=== PATIENT | female | born 1945 | race Caucasian/White ===

== ENCOUNTER 2017-02-07 21:25 | Inpatient (IN) | payer MEDICARE, OTHER ==
--- NOTE | 2017-02-07 22:32 | ER Document Report ---
ED Medical Screen (RME) - General Chief Complaint: Breathing Difficulty Stated Complaint: DIFFICULITY BREATHING Time seen by provider: 22:29 Mode of Arrival: Wheelchair Information source: Patient Notes: 71-year-old female presents to ED for shortness of breath trouble breathing wheezing with a history of COPD. Grandson states that he has given her albuterol several times in the last couple hours pulses 49 in the emergency room. She is on oxygen 2 L at home but is not on any oxygen in the emergency room. States she is on Pulmicort and Spiriva and albuterol at home. Does have wheezes in RME. I have greeted and performed a rapid initial assessment of this patient. A comprehensive ED assessment and evaluation of the patient, analysis of test results and completion of medical decision making process will be conducted by an additional ED providers. TRAVEL OUTSIDE OF THE [place] IN LAST 30 DAYS: No - Related Data Allergies/Adverse Reactions: adhesive tape [Adhesive Tape] Allergy (Severe, Verified 02/26/16 10:18) peels skin off ceftriaxone sodium [From Rocephin] Allergy (Severe, Verified 02/26/16 10:18) redness/itch Past Medical History - Past Medical History Cardiac Medical History: Reports: Hx Hypertension Denies: Hx Atrial Fibrillation, Hx Congestive Heart Failure, Hx Coronary Artery Disease, Hx Heart Attack, Hx Hypercholesterolemia, Hx Peripheral Vascular Disease, Hx Pulmonary Embolism, Hx Heart Murmur Pulmonary Medical History: Reports: Hx Bronchitis, Hx COPD Denies: Hx Asthma, Hx Pneumonia, Hx Respiratory Failure, Hx Sleep Apnea, Hx Tuberculosis Neurological Medical History: Reports: Hx Seizures. Denies: Hx Cerebrovascular Accident Endocrine Medical History: Denies: Hx Graves' Disease, Hx Hyperthyroidism, Hx Hypothyroidism Renal/ Medical History: Denies: Hx End Stage Renal Disease, Hx Kidney Stones, Hx Peritoneal Dialysis Malignancy Medical History: Denies: Hx Lung Cancer GI Medical History: Reports: Hx Gastroesophageal Reflux Disease, Hx Hepatitis, Hx Ulcer. Denies: Hx Crohn's Disease, Hx Hiatal Hernia, Hx Irritable Bowel, Hx Liver Failure Musculoskeltal Medical History: Reports Hx Arthritis, Denies Hx Fibromyalgia, Denies Hx Multiple Sclerosis, Denies Hx Muscular Dystrophy Psychiatric Medical History: Reports: Hx Anxiety, Hx Depression Denies: Hx Dementia, Hx Post Traumatic Stress Disorder, Hx Schizophrenia Comment Only: Hx Bipolar Disorder - anxiety Traumatic Medical History: Denies: Hx Fractures Infectious Medical History: Reports: Hx Hepatitis Past Surgical History: Reports: Hx Cholecystectomy. Denies: Hx Appendectomy, Hx Bowel Surgery, Hx Section, Hx Colostomy, Hx Coronary Artery Bypass Graft, Hx Gastric Bypass Surgery, Hx Herniorrhaphy, Hx Hysterectomy, Hx Mastectomy, Hx Open Heart Surgery, Hx Pacemaker, Hx Tonsillectomy, Hx Tubal Ligation - Immunizations Immunizations up to date: Yes Hx Diphtheria, Pertussis, Tetanus Vaccination: No
[2017-02-07] MEDS ORDERED: PREDNISONE 20 MG TABLET PO ONE (22:33)
[2017-02-07] MEDS: ALBUTEROL SULFATE 0.083% NEB 2.5 MG/3 ML AMPUL NEB SCH ×2 (22:41→22:46)
[2017-02-08] MEDS ORDERED: LEVOFLOXACIN 750 MG/D5W RTU 150 ML IV ONE (03:06)
[2017-02-08] MEDS ORDERED: IPRATROPIUM/ALBUTEROL 0.5-2.5 MG/3 ML AMPUL NEB ONE ×2 (03:07→04:37)
--- NOTE | 2017-02-08 03:08 | ER Document Report ---
ED Respiratory Problem - General Mode of Arrival: Wheelchair Information source: Patient TRAVEL OUTSIDE OF THE [place] IN LAST 30 DAYS: No - HPI Patient complains to provider of: COPD, Short of breath Onset: This evening Context: Hx COPD, Smoker <BERLIN PARKER - Last Filed: 02/08/17 04:48> <RITURA GARTH - Last Filed: 02/08/17 06:18> - General Chief Complaint: Breathing Difficulty Stated Complaint: DIFFICULITY BREATHING Notes: 71 year old patient with history of COPD and bronchitis presents to the ED complaining of shortness of breath that started earlier this evening. Patient states that she only comes to the ED if she feels like she needs to be admitted. Patient states that she received a flu shot and 1 of 2 pneumonia shots this year. Patient's son also complains of a productive cough. Patient's primary care provider is Dr. Fowler. (BERLIN PARKER) - Related Data Allergies/Adverse Reactions: adhesive tape [Adhesive Tape] Allergy (Severe, Verified 02/26/16 10:18) peels skin off ceftriaxone sodium [From Rocephin] Allergy (Severe, Verified 02/26/16 10:18) redness/itch Past Medical History - General Information source: Patient - Social History Smoking Status: Unknown if Ever Smoked Family History: Reviewed & Not Pertinent - Past Medical History Cardiac Medical History: Reports: Hx Hypertension Pulmonary Medical History: Reports: Hx Bronchitis, Hx COPD Neurological Medical History: Reports: Hx Seizures GI Medical History: Reports: Hx Gastroesophageal Reflux Disease, Hx Hepatitis, Hx Ulcer Musculoskeltal Medical History: Reports Hx Arthritis Psychiatric Medical History: Reports: Hx Anxiety, Hx Depression Comment Only: Hx Bipolar Disorder - anxiety Infectious Medical History: Reports: Hx Hepatitis Past Surgical History: Reports: Hx Cholecystectomy - Immunizations Immunizations up to date: Yes Hx Diphtheria, Pertussis, Tetanus Vaccination: No Hx Pneumococcal Vaccination: 07/14/11 <BERLIN PARKER - Last Filed: 02/08/17 04:48> Review of Systems - Review of Systems Constitutional: No symptoms reported EENT: No symptoms reported Cardiovascular: No symptoms reported Respiratory: See HPI, Cough, Short of breath, Sputum Gastrointestinal: No symptoms reported Genitourinary: No symptoms reported Female Genitourinary: No symptoms reported Musculoskeletal: No symptoms reported Skin: No symptoms reported Hematologic/Lymphatic: No symptoms reported Neurological/Psychological: No symptoms reported -: Yes All other systems reviewed and negative <BERLIN PARKER - Last Filed: 02/08/17 04:48> Physical Exam - Vital signs Interpretation: Hypotensive, Hypoxic - General General appearance: Alert In distress: Mild - HEENT Head: Normocephalic, Atraumatic Eyes: Normal Pupils: PERRL - Respiratory Respiratory status: Respiratory distress Chest status: Nontender Breath sounds: Decreased air movement, Wheezing Chest palpation: Normal - Cardiovascular Rhythm: Regular Heart sounds: Normal auscultation Murmur: No - Abdominal Inspection: Normal Distension: No distension Bowel sounds: Normal Tenderness: Nontender Organomegaly: No organomegaly - Back Back: Normal, Nontender - Extremities General upper extremity: Normal inspection, Nontender, Normal color, Normal ROM , Normal temperature General lower extremity: Normal inspection, Nontender, Normal color, Normal ROM , Normal temperature, Normal weight bearing. No: Shayan's sign - Neurological Neuro grossly intact: Yes Cognition: Normal Orientation: AAOx4 [place] Coma Scale Eye Opening: Spontaneous [place] Coma Scale Verbal: Oriented [place] Coma Scale Motor: Obeys Commands [place] Coma Scale Total: 15 Speech: Normal Motor strength normal: LUE, RUE, LLE, RLE Sensory: Normal - Psychological Associated symptoms: Normal affect, Normal mood - Skin Skin Temperature: Warm Skin Moisture: Dry Skin Color: Normal <RA CHANEY - Last Filed: 02/08/17 06:18> - Vital signs Vitals: Temp Pulse Resp BP Pulse Ox 97.7 F 56 L 25 H 103/44 L 95 02/07/17 21:34 02/07/17 21:34 02/07/17 21:34 02/07/17 21:34 02/07/17 21:34 Course - Laboratory Result Diagrams: 02/08/17 03:50 02/08/17 02:20 - Consults Dr. Fowler Time consulted: 16:37 <BERLIN PARKER - Last Filed: 02/08/17 04:48> - Laboratory Result Diagrams: 02/08/17 03:50 02/08/17 02:20 <RA CHANEY - Last Filed: 02/08/17 06:18> - Re-evaluation Re-evalutation: 02/08/17 06:17 Patient is a 78-year-old female with a history of COPD who comes in with difficulty breathing. She's gotten worse over the last few days. No fever. No evidence for pneumonia on chest x-ray. Patient is hypoxic despite her home oxygen. She is having coarse wheezing despite treatments. Patient was given magnesium, steroids, multiple nebulizer treatments. She'll be admitted to the [facility]. Agrees with this plan. Stable time of admission. (RA CHANEY ) - Vital Signs Vital signs: Temp Pulse Resp BP Pulse Ox 97.7 F 56 L 25 H 108/81 94 02/07/17 21:34 02/07/17 21:34 02/07/17 21:34 02/08/17 03:01 02/08/17 03:01 - Laboratory Laboratory results interpreted by me: 02/08/17 02/08/17 02/08/17 02:20 03:15 03:50 Hgb 11.9 L RDW 16.0 H VBG pH 7.26 L Sodium 128.0 L Chloride 93 L Carbon Dioxide 18 L Creatinine 2.03 H Est GFR ( Amer) 29 L Est GFR (Non-Af Amer) 24 L - Consults Dr. Fowler Reason for consultation: 02/08/17 04:37 Patient was discussed with Dr. Fowler and states to admit the patient to [facility]. (BERLIN PARKER) Critical Care Note - Critical Care Note Total time excluding time spent on procedures (mins): 35 - evaluation and management of respiratory distress, multiple re-evaluations, coordination of admission, counseling of patient and family <RA CHANEY - Last Filed: 02/08/17 06:18> Discharge <BERLIN PARKER - Last Filed: 02/08/17 04:48> - Discharge Admitting Provider: Janeth Unit Admitted: [facility] <RA CHANEY - Last Filed: 02/08/17 06:18> - Discharge Clinical Impression: Decompensated COPD with exacerbation (chronic obstructive pulmonary disease) Condition: Stable Disposition: ADMITTED INPATIENT Scribe Attestation: 02/08/17 06:18 I personally performed the services described in the documentation, reviewed and edited the documentation which was dictated to the scribe in my presence, and it accurately records my words and actions. (RA CHANEY) Scribe Documentation - Scribe Written by Oluibe:: Kanu Renteria, 02/08/2017 0325 acting as scribe for :: Ritu <BERLIN PARKER - Last Filed: 02/08/17 04:48>
[2017-02-08 03:30] LABS: VENOUS BLOOD HCO3 21.3 mmol/L (20-32); VENOUS BLOOD PCO2 49.1 mmHg (35-63); VENOUS BLOOD PH 7.26 (7.30-7.42)
[2017-02-08 03:43] LABS: ALANINE AMINOTRANSFERASE 20 U/L (9-52); ALKALINE PHOSPHATASE 107 U/L (38-126); ANION GAP 17 (5-19); ASPARTATE AMINO TRANSFERASE 25 U/L (14-36); BILIRUBIN,DIRECT 0.4 mg/dL (0.0-0.4); BILIRUBIN,TOTAL 0.7 mg/dL (0.2-1.3); BLOOD UREA NITROGEN 11 mg/dL (7-20); CALCIUM 8.5 mg/dL (8.4-10.2); CARBON DIOXIDE 18 mmol/L (22-30); CHLORIDE 93 mmol/L (98-107); CREATININE RESULT 2.03 mg/dL (0.52-1.25); GLUCOSE 109 mg/dL (75-110); TOTAL PROTEIN 6.8 g/dL (6.3-8.2)
[2017-02-08] MEDS: MAGNESIUM SULFATE/D5W 100 ML IV SCH ×2 (03:48→05:17)
[2017-02-08] MEDS ORDERED: NORMAL SALINE 1000 ML 500 ML IV ONE (03:52)
[2017-02-08 04:01] LABS: ABSOLUTE BASOPHILS # (AUTO) 0.1 10^3/uL (0.0-0.2); ABSOLUTE EOSINOPHILS # (AUTO) 0.1 10^3/uL (0.0-0.6); ABSOLUTE LYMPHOCYTES (AUTO) 2.1 10^3/uL (0.5-4.7); ABSOLUTE NEUT (AUTO) 5.3 10^3/uL (1.7-8.2); BASOPHILS % (AUTO) 0.7 % (0-2); EOSINOPHILS % (AUTO) 0.8 % (0-6); HEMATOCRIT 36.1 % (36.0-47.0); HEMOGLOBIN 11.9 g/dL (12.0-15.5); HGB HCT DIFFERENCE -0.4; LYMPHOCYTES % (AUTO) 24.8 % (13-45); MEAN CORPUSCULAR HEMOGLOBIN 28.8 pg (27.0-33.4); MEAN CORPUSCULAR HGB CONC 32.9 g/dL (32.0-36.0); MEAN CORPUSCULAR VOLUME 87 fl (80-97); MONOCYTES % (AUTO) 11.7 % (3-13); RED BLOOD COUNT 4.13 10^6/uL (3.72-5.28); WHITE BLOOD COUNT 8.5 10^3/uL (4.0-10.5)
[2017-02-08 04:21] LABS: PROTHROMBIN TIME 14.9 SEC (11.4-15.4)
[2017-02-08 06:01] LABS: APPEARANCE,URINE SLIGHTLY-CLOUDY; BILIRUBIN,URINE NEGATIVE (NEGATIVE); GLUCOSE, URINE NEGATIVE (NEGATIVE); KETONES,URINE NEGATIVE (NEGATIVE); LEUKOCYTE ESTERASE,URINE SMALL (NEGATIVE); NITRITE,URINE NEGATIVE (NEGATIVE); PROTEIN,URINE NEGATIVE (NEGATIVE); URINE SPECIFIC GRAVITY 1.006; UROBILINOGEN,URINE NEGATIVE mg/dL (<2.0)
--- NOTE | 2017-02-08 08:27 | EKG REPORT ---
SEVERITY:- ABNORMAL ECG - ATRIAL FIBRILLATION BORDERLINE R WAVE PROGRESSION, ANTERIOR LEADS BORDERLINE T ABNORMALITIES, ANTERIOR LEADS : Confirmed by: Astrid Celestin 08-Feb-2017 08:26:44
[2017-02-08] MEDS ORDERED: IPRATROPIUM/ALBUTEROL 0.5-2.5 MG/3 ML AMPUL NEB PRN (08:39)
[2017-02-08] MEDS ORDERED: TRIMETHOBENZAMIDE HCL 300 MG CAPSULE PO PRN (08:42)
[2017-02-08] MEDS ORDERED: ACETAMINOPHEN 325 MG TABLET PO PRN (08:42)
[2017-02-08 09:45] LABS: HEMATOCRIT 35.6 % (36.0-47.0); HEMOGLOBIN 11.7 g/dL (12.0-15.5); HGB HCT DIFFERENCE -0.5; MEAN CORPUSCULAR HEMOGLOBIN 28.7 pg (27.0-33.4); MEAN CORPUSCULAR VOLUME 87 fl (80-97); RED BLOOD COUNT 4.09 10^6/uL (3.72-5.28); RED CELL DISTRIBUTION WIDTH 16.1 % (11.5-14.0); WHITE BLOOD COUNT 8.8 10^3/uL (4.0-10.5)
[2017-02-08 09:51] LABS: PROTHROMBIN TIME 14.9 SEC (11.4-15.4)
[2017-02-08 09:52] LABS: PARTIAL THROMBOPLASTIN TIME 32.1 SEC (23.5-35.8)
[2017-02-08 10:06] LABS: CREATININE RESULT 1.14 mg/dL (0.52-1.25)
[2017-02-08] MEDS ORDERED: LANSOPRAZOLE 30 MG TAB.RAP.DR PO ONE (11:00)
[2017-02-08] MEDS ORDERED: METHYLPREDNISOLONE INJ 125 MG/2 ML SDV IV ONE (11:30)
[2017-02-08] MEDS ORDERED: ENOXAPARIN SODIUM INJ 40 MG/0.4 ML DISP.SYRIN SUBCUT ONE (11:30)
[2017-02-08] MEDS: METHYLPREDNISOLONE INJ 125 MG/2 ML SDV IV SCH (17:05)
[2017-02-08] MEDS ORDERED: (PENDING PHARMACY ID) (Diltiazem Hcl [Diltiazem Er] 180 MG) PO SCH (19:00)
--- NOTE | 2017-02-08 19:23 | PDOC H&P ---
History of Present Illness Admission Date/PCP: 02/08/17 04:46 STELLA DELICIA Patient complains of: Difficulty with breathing History of Present Illness: SOHA DORSEY is a 71 year old female known to my practice who presented to ED with above complaint. Patient reported episodes of nasal and sinus congestion for couple of weeks with associated postnasal drip and productive coughing. Patient continue to smoke cigarette, about 11/2 PPD. She reported sputum character as brownish yellow with tinged of blood earlier today. She denied any significant associated chest pain. There is chills and feeling cold at home but denied any definite fever. No abdominal pain, nausea or vomiting. Appetite and p.o intake remain fair. Patient reported intermittent episodes of difficulty with voiding associate feeling of full and over distended bladder but mainly tripping or no voided urine with attempts to urinate. Patient reported episodes over last 3-4 months. Her initial evaluation in the ED suggested exacerbation of her COPD and possible UTI Past Medical History Cardiac Medical History: Reports: Hypertension Denies: Atrial Fibrillation, Congestive Heart Failure, Coronary Artery Disease, Myocardial Infarction, Hyperlipidema, Peripheral Vascular Disease, Pulmonary Embolism, Heart Murmur Pulmonary Medical History: Reports: Bronchitis, Chronic Obstructive Pulmonary Disease (COPD) Denies: Asthma, Pneumonia, Respiratory Failure, Sleep Apnea, Tuberculosis Neurological Medical History: Reports: Seizures Endocrine Medical History: Denies: Hyperthyroidism, Hypothyroidism Renal/ Medical History: Denies: End Stage Renal Disease Malignancy Medical History: Denies: Lung Cancer GI Medical History: Reports: Gastroesophageal Reflux Disease, Hepatitis Denies: Crohn's Disease, Hiatal Hernia Musculoskeltal Medical History: Reports: Arthritis Denies: Fibromyalgia Psychiatric Medical History: Reports: Depression Denies: Dementia, Post Traumatic Stress Disorder Comment Only: Bipolar Disorder - anxiety Hematology: Denies: Anemia, Sickle Cell Disease Past Surgical History Past Surgical History: Reports: Cholecystectomy Denies: Amputation, Appendectomy, Section, Colostomy, Coronary Artery Bypass Graft, Gastric Bypass Surgery, Herniorrhaphy, Hysterectomy, Mastectomy, Pacemaker, Tonsillectomy, Tubal Ligation Social History Smoking Status: Unknown if Ever Smoked Frequency of Alcohol Use: Heavy Hx Recreational Drug Use: No Hx Prescription Drug Abuse: No Family History Family History: Reviewed & Not Pertinent Parental Family History Reviewed: Yes Children Family History Reviewed: Yes Sibling(s) Family History Reviewed.: Yes Medication/Allergy Home Medications: Acetazolamide [Diamox 250 mg Tab] 250 mg PO DAILY 02/08/17 Albuterol Sulfate [Albuterol Sulfate 2.5mg/3 mL] 1 vial NEB TIDP PRN 02/08/17 Albuterol Sulfate [Proair HFA Inhalation Aerosol 8.5 gm MDI] 2 puff IH Q6HP PRN 02/08/17 Apixaban [Eliquis 5 mg Tablet] 5 mg PO BID 02/08/17 Budesonide [Pulmicort 180 mcg Flexhaler] 1 puff IH BID 02/08/17 Calcium Carbonate/Vitamin D3 [Calcium 600 + Vit D 400 Tablet] 1 tab PO BID 02/08 Clonazepam [Klonopin 0.25 mg Tablet Rapid Dissolve] 0.25 mg SL QHS 02/08/17 Diltiazem HCl [Diltiazem ER] 180 mg PO DAILY 02/08/17 Escitalopram Oxalate [Lexapro 10 mg Tablet] 10 mg PO DAILY 02/08/17 Furosemide [Lasix] 20 mg PO DAILY 02/08/17 Gabapentin [Neurontin] 800 mg PO TID 02/08/17 Melatonin 10 mg PO QHS 02/08/17 Multivits-Min/Iron/FA/Lutein [Centrum Silver Women Tablet] 1 tab PO DAILY Omeprazole 40 mg PO DAILY 02/08/17 Potassium Chloride [Klor-Con 10 Meq Tablet.sa] 20 meq PO DAILY 02/08/17 Sodium Chloride [[place]win Nasal [place] 44 ml Bottle] 1 spray NASL QHS 02/08/17 Tiotropium [place] [Spiriva Respimat] 2 puff IH DAILY 02/08/17 Tramadol HCl [Ultram 50 mg Tablet] 50 mg PO BIDP PRN 02/08/17 Valsartan [Diovan 80 mg Tablet] 80 mg PO DAILY 02/08/17 Allergies/Adverse Reactions: adhesive tape [Adhesive Tape] Allergy (Severe, Verified 02/26/16 10:18) peels skin off ceftriaxone sodium [From Rocephin] Allergy (Severe, Verified 02/26/16 10:18) redness/itch Review of Systems Constitutional: PRESENT: chills Eyes: ABSENT: visual disturbances Ears: ABSENT: hearing changes Nose, Mouth, and Throat: ABSENT: as per HPI, headache(s), mouth pain, sore throat, vertigo, other Cardiovascular: PRESENT: dyspnea on exertion. ABSENT: as per HPI, chest pain, edema, orthropnea, palpitations, other Respiratory: PRESENT: cough, dyspnea, sputum. ABSENT: as per HPI, hemoptysis, other Gastrointestinal: ABSENT: as per HPI, abdominal pain, bloating, coffee ground emesis, constipation, diarrhea, dysphagia, heartburn, hematemesis, hematochezia , melena, nausea, vomiting, other Genitourinary: PRESENT: difficulty urinating. ABSENT: as per HPI, dysuria, hematuria, nocturia, other Musculoskeletal: ABSENT: joint swelling Integumentary: ABSENT: rash, wounds Neurological: ABSENT: abnormal gait, abnormal speech, confusion, dizziness, focal weakness, syncope Psychiatric: PRESENT: anxiety, depression. ABSENT: as per HPI, hallucinations, homidical ideation, suicidal ideation, other Endocrine: ABSENT: cold intolerance, heat intolerance, menstrual abnormalities, polydipsia, polyuria Hematologic/Lymphatic: ABSENT: easy bleeding, easy bruising, lymphadenopathy Physical Exam Vital Signs: Temp Pulse Resp BP Pulse Ox 97.7 F 56 L 25 H 109/51 L 97 02/07/17 21:34 02/07/17 21:34 02/07/17 21:34 02/08/17 06:01 02/08/17 06:01 General appearance: PRESENT: mild distress - Remain on supplemental oxygen via nasal canula, obese Head exam: PRESENT: atraumatic, normocephalic Eye exam: PRESENT: conjunctiva pink, EOMI, PERRLA. ABSENT: scleral icterus Ear exam: PRESENT: normal external ear exam Mouth exam: PRESENT: moist, tongue midline Throat exam: ABSENT: post pharyngeal erythema, tonsillar erythema, tonsillar exudate, tonsillogmegaly, other Neck exam: PRESENT: full ROM. ABSENT: carotid bruit, JVD, lymphadenopathy, thyromegaly Respiratory exam: PRESENT: accessory muscle use - to some degree with lip pussing, decreased breath sounds, prolonged expiratory phas, rhonchi Cardiovascular exam: PRESENT: irregular rhythm. ABSENT: bradycardia, clicks, diastolic murmur, gallop, RRR, rubs, +S1, +S2, systolic murmur, tachycardia, other Pulses: PRESENT: normal dorsalis pedis pul, +2 pedal pulses bilateral Vascular exam: PRESENT: normal capillary refill GI/Abdominal exam: PRESENT: normal bowel sounds, soft. ABSENT: distended, guarding, mass, organolmegaly, rebound, tenderness Rectal exam: PRESENT: deferred Extremities exam: PRESENT: full ROM Musculoskeletal exam: PRESENT: deformity - related to joint involvement with arthritis Neurological exam: PRESENT: alert, awake, oriented to person, oriented to place , oriented to time, oriented to situation, CN II-XII grossly intact. ABSENT: motor sensory deficit Psychiatric exam: PRESENT: appropriate affect, normal mood. ABSENT: homicidal ideation, suicidal ideation Skin exam: PRESENT: dry, intact, warm. ABSENT: cyanosis, rash Results Laboratory Results: 02/08/17 04:55 Urine Color YELLOW Urine Appearance SLIGHTLY-CLOUDY Urine pH 5.0 Ur Specific [place] 1.006 Urine Protein NEGATIVE Urine Glucose (UA) NEGATIVE Urine Ketones NEGATIVE Urine Blood NEGATIVE Urine Nitrite NEGATIVE Ur Leukocyte Esterase SMALL H Urine WBC (Auto) 3 Urine RBC (Auto) 2 Impressions: Chest X-Ray 02/07/17 22:32 IMPRESSION: NO SIGNIFICANT RADIOGRAPHIC FINDING IN THE CHEST. Assessment & Plan - Diagnosis (1) Probable sepsis Is this a current diagnosis for this admission?: YesPlan: See admitting physician orders (2) Decompensated COPD with exacerbation (chronic obstructive pulmonary disease) Is this a current diagnosis for this admission?: YesPlan: See admitting physician orders (3) Anxiety Is this a current diagnosis for this admission?: YesPlan: See admitting physician orders (4) Depression Qualifiers: Depression Type: major depressive disorder Major depression recurrence : recurrent Active/Remission status: currently active Psychotic features : without psychotic features Is this a current diagnosis for this admission?: YesPlan: See admitting physician orders (5) HLD (hyperlipidemia) Qualifiers: Hyperlipidemia type: pure hypercholesterolemia Qualified Code(s): E78.00 - Pure hypercholesterolemia, unspecified; E78.0 - Pure hypercholesterolemia Is this a current diagnosis for this admission?: YesPlan: See admitting physician orders (6) HTN (hypertension) Qualifiers: Hypertension type: essential hypertension Qualified Code(s): I10 - Essential (primary) hypertension Is this a current diagnosis for this admission?: YesPlan: See admitting physician orders - Time Time Spent: 50 to 70 Minutes Medications reviewed and adjusted accordingly: Yes Anticipated discharge: Home with Homehealth Within: Other - Inpatient Certification Medical Necessity: Need Close Monitoring Due to Risk of Patient Decompensation, Need For IV Fluids, Need For Continuous Telemetry Monitoring, Need for Nebulizer Therapy and Monitoring of Response, Need for IV Antibiotics, Risk of Complication if Not Cared For in Hospital Post Hospital Care: D/C Energy Conservation Technician Documentation - Plan Summary Plan Summary: See admitting physician orders
[2017-02-08] MEDS ORDERED: NICOTINE 21 MG/24 HR PATCH.TD24 TD ONE (20:00)
[2017-02-08] MEDS ORDERED: VALSARTAN 80 MG TABLET PO ONE (20:00)
[2017-02-08] MEDS ORDERED: DILTIAZEM HCL 180 MG CAPSULE.CR PO ONE (20:00)
[2017-02-08] MEDS ORDERED: (PENDING PHARMACY ID) (Melatonin [Melatonin] 10 MG) PO SCH (22:00)
[2017-02-08] MEDS ORDERED: CLONAZEPAM 0.25 MG SL SCH (22:00)
[2017-02-08] MEDS: GABAPENTIN 400 MG CAPSULE PO SCH (22:12)
[2017-02-08] MEDS: CLONAZEPAM 1 MG TABLET SL SCH (22:13)
[2017-02-08] MEDS: APIXABAN 5 MG TABLET PO SCH (22:14)
[2017-02-09] MEDS: METHYLPREDNISOLONE INJ 125 MG/2 ML SDV IV SCH (02:47)
[2017-02-09] MEDS ORDERED: LEVOFLOXACIN 500 MG/D5W RTU 500 MG/100 ML RTUPB IV SCH (03:00)
[2017-02-09] MEDS: LANSOPRAZOLE 30 MG TAB.RAP.DR PO SCH (05:41)
[2017-02-09] MEDS: GABAPENTIN 400 MG CAPSULE PO SCH ×3 (05:41→21:49)
[2017-02-09] MEDS ORDERED: ENOXAPARIN SODIUM INJ 40 MG/0.4 ML DISP.SYRIN SUBCUT SCH (08:00)
--- NOTE | 2017-02-09 08:18 | PDOC PROGRESS REPORT ---
Subjective Progress Note for:: 02/09/17 Subjective:: Patient is sitting on bed quietly without supplemental oxygen and saturation at 95%. Denied any chest pain. No reported fever or chills. No nausea or vomiting. No abdominal pain. Remain on IV Solu-Medrol, Levofloxacin and Nebulizer therapy. Physical Exam Vital Signs: Temp Pulse Resp BP Pulse Ox 97.4 F 76 22 H 139/65 H 95 02/09/17 07:18 02/09/17 07:45 02/09/17 07:18 02/09/17 07:18 02/09/17 07:18 Intake & Output 02/08/17 02/09/17 02/10/17 06:59 06:59 06:59 Intake Total 563 Output Total 600 Balance -37 Weight 70.3 kg General appearance: PRESENT: no acute distress, cooperative, obese Head exam: PRESENT: atraumatic, normocephalic Eye exam: PRESENT: conjunctiva pink, EOMI, PERRLA. ABSENT: scleral icterus Ear exam: PRESENT: normal external ear exam Mouth exam: PRESENT: moist, tongue midline Respiratory exam: PRESENT: decreased breath sounds - at lung bases, rhonchi - very minimal and end expiratory phase Cardiovascular exam: PRESENT: RRR. ABSENT: diastolic murmur, rubs, systolic murmur GI/Abdominal exam: PRESENT: normal bowel sounds, soft. ABSENT: distended, guarding, mass, organolmegaly, rebound, tenderness Extremities exam: PRESENT: full ROM Musculoskeletal exam: PRESENT: deformity Neurological exam: PRESENT: alert, awake, oriented to person, oriented to place , oriented to time, oriented to situation, CN II-XII grossly intact. ABSENT: motor sensory deficit Psychiatric exam: PRESENT: appropriate affect, normal mood. ABSENT: homicidal ideation, suicidal ideation Skin exam: PRESENT: dry, intact, warm. ABSENT: cyanosis, rash Results Laboratory Results: 02/08/17 09:35 02/08/17 09:35 02/08/17 02/08/17 09:35 09:35 WBC 8.8 RBC 4.09 Hgb 11.7 L Hct 35.6 L MCV 87 MCH 28.7 MCHC 33.0 RDW 16.1 H Plt Count 168 Creatinine 1.14 Est GFR ( Amer) 57 L Est GFR (Non-Af Amer) 47 L Impressions: Chest X-Ray 02/07/17 22:32 IMPRESSION: NO SIGNIFICANT RADIOGRAPHIC FINDING IN THE CHEST. Assessment & Plan - Diagnosis (1) Probable sepsis Is this a current diagnosis for this admission?: YesPlan: I will discontinue IV Levofloxacin and start on oral route with intent to discharge on same soon. (2) Decompensated COPD with exacerbation (chronic obstructive pulmonary disease) Is this a current diagnosis for this admission?: YesPlan: Improving. I will transition patient to oral Prednisone with tapering dosage over next couple of days. She will start on her preadmission inhaler therapy. (3) Anxiety Is this a current diagnosis for this admission?: YesPlan: See attending physician orders. (4) Depression Qualifiers: Depression Type: major depressive disorder Major depression recurrence : recurrent Active/Remission status: currently active Psychotic features : without psychotic features Is this a current diagnosis for this admission?: YesPlan: See attending physician orders. (5) HLD (hyperlipidemia) Qualifiers: Hyperlipidemia type: pure hypercholesterolemia Qualified Code(s): E78.00 - Pure hypercholesterolemia, unspecified; E78.0 - Pure hypercholesterolemia Is this a current diagnosis for this admission?: YesPlan: See attending physician orders. (6) HTN (hypertension) Qualifiers: Hypertension type: essential hypertension Qualified Code(s): I10 - Essential (primary) hypertension Is this a current diagnosis for this admission?: YesPlan: See attending physician orders. - Time Time Spent with patient: 25-34 minutes Medications reviewed and adjusted accordingly: Yes Anticipated discharge: Home Within: Other - Inpatient Certification Medical Necessity: Need Close Monitoring Due to Risk of Patient Decompensation, Need For Continuous Telemetry Monitoring, Need for IV Antibiotics, Risk of Complication if Not Cared For in Hospital Post Hospital Care: D/C Sign Erector Documentation - Plan Summary Plan Summary: See attending physician orders.
[2017-02-09] MEDS: APIXABAN 5 MG TABLET PO SCH ×2 (09:41→21:49)
[2017-02-09] MEDS: PREDNISONE 20 MG TABLET PO SCH (09:45)
[2017-02-09] MEDS: VALSARTAN 80 MG TABLET PO SCH (09:45)
[2017-02-09] MEDS: ESCITALOPRAM OXALATE 10 MG TABLET PO SCH (09:46)
[2017-02-09] MEDS: POTASSIUM CHLORIDE 10 MEQ TABLET.SA PO SCH (09:47)
[2017-02-09] MEDS: LEVOFLOXACIN 500 MG TABLET PO SCH (09:47)
[2017-02-09] MEDS: FUROSEMIDE 20 MG TABLET PO SCH (09:48)
[2017-02-09] MEDS: MULTIVITAMIN TABLET PO SCH (09:48)
[2017-02-09] MEDS: ACETAZOLAMIDE 250 MG TABLET PO SCH (09:48)
[2017-02-09] MEDS: DILTIAZEM HCL 180 MG CAPSULE.CR PO SCH (09:49)
[2017-02-09] MEDS: CALCIUM CARBONATE 250 MG/VITAMIN D3 125 UNIT TABLET PO SCH ×2 (09:49→17:24)
[2017-02-09] MEDS: NICOTINE 21 MG/24 HR PATCH.TD24 TD SCH (09:50)
[2017-02-09] MEDS: TIOTROPIUM BROMIDE DPI 5 CAP/KIT (18 MCG/CAP) IH SCH (09:51)
[2017-02-09] MEDS ORDERED: (PENDING PHARMACY ID) (Multivits-Min/Iron/Fa/Lutein [Centrum Silver Women Tablet] 1 TAB) PO SCH (10:00)
[2017-02-09] MEDS ORDERED: (PENDING PHARMACY ID) (Tiotropium Bromide [Spiriva Respimat] 2 PUFF) IH SCH (10:00)
[2017-02-09] MEDS ORDERED: (PENDING PHARMACY ID) (Calcium Carbonate/Vitamin D3 [Calcium 600 + Vit D 400 Tablet] 1 TAB PO SCH (10:00)
[2017-02-09] MEDS ORDERED: (PENDING PHARMACY ID) (Budesonide [Pulmicort 180 Mcg Flexhaler] 1 PUFF) IH SCH (10:00)
[2017-02-09] MEDS: CLONAZEPAM 1 MG TABLET SL SCH (21:49)
[2017-02-10] MEDS ORDERED: LEVOFLOXACIN 750 MG/D5W RTU 750 MG/150 ML RTUPB IV SCH (03:00)
[2017-02-10] MEDS: LANSOPRAZOLE 30 MG TAB.RAP.DR PO SCH (05:31)
[2017-02-10] MEDS: GABAPENTIN 400 MG CAPSULE PO SCH ×2 (05:31→13:22)
[2017-02-10] MEDS: APIXABAN 5 MG TABLET PO SCH (09:46)
[2017-02-10] MEDS: PREDNISONE 20 MG TABLET PO SCH (09:50)
[2017-02-10] MEDS: VALSARTAN 80 MG TABLET PO SCH (09:50)
[2017-02-10] MEDS: ESCITALOPRAM OXALATE 10 MG TABLET PO SCH (09:51)
[2017-02-10] MEDS: FUROSEMIDE 20 MG TABLET PO SCH (09:51)
[2017-02-10] MEDS: MULTIVITAMIN TABLET PO SCH (09:51)
[2017-02-10] MEDS: DILTIAZEM HCL 180 MG CAPSULE.CR PO SCH (09:51)
[2017-02-10] MEDS: CALCIUM CARBONATE 250 MG/VITAMIN D3 125 UNIT TABLET PO SCH (09:52)
[2017-02-10] MEDS: LEVOFLOXACIN 500 MG TABLET PO SCH (09:52)
[2017-02-10] MEDS: ACETAZOLAMIDE 250 MG TABLET PO SCH (09:52)
[2017-02-10] MEDS: NICOTINE 21 MG/24 HR PATCH.TD24 TD SCH (09:53)
[2017-02-10] MEDS: POTASSIUM CHLORIDE 10 MEQ TABLET.SA PO SCH (09:53)
[2017-02-10] MEDS: TIOTROPIUM BROMIDE DPI 5 CAP/KIT (18 MCG/CAP) IH SCH (09:54)
--- NOTE | 2017-02-10 16:02 | PDOC DISCHARGE SUMMARY ---
General - Admit/Disc Date/PCP Admission Date/Primary Care Provider: 02/08/17 04:46 STELLA DELICIA Discharge Date: 02/10/17 - Discharge Diagnosis (1) Probable sepsis Is this a current diagnosis for this admission?: Yes (2) Decompensated COPD with exacerbation (chronic obstructive pulmonary disease) Is this a current diagnosis for this admission?: Yes (3) Anxiety Is this a current diagnosis for this admission?: Yes (4) Depression Is this a current diagnosis for this admission?: Yes (5) HLD (hyperlipidemia) Is this a current diagnosis for this admission?: Yes (6) HTN (hypertension) Is this a current diagnosis for this admission?: Yes - Additional Information Discharge Diet: Cardiac Discharge Activity: Activity As Tolerated, Slowly Increase Activity Home Medications: Acetazolamide [Diamox 250 mg Tab] 250 mg PO DAILY 02/08/17 Albuterol Sulfate [Albuterol Sulfate 2.5mg/3 mL] 1 vial NEB TIDP PRN 02/08/17 Albuterol Sulfate [Proair HFA Inhalation Aerosol 8.5 gm MDI] 2 puff IH Q6HP PRN 02/08/17 Apixaban [Eliquis 5 mg Tablet] 5 mg PO BID 02/08/17 Budesonide [Pulmicort 180 mcg Flexhaler] 1 puff IH BID 02/08/17 Calcium Carbonate/Vitamin D3 [Calcium 600 + Vit D 400 Tablet] 1 tab PO BID 02/08 Clonazepam [Klonopin 0.25 mg Tablet Rapid Dissolve] 0.25 mg SL QHS 02/08/17 Diltiazem HCl [Diltiazem ER] 180 mg PO DAILY 02/08/17 Escitalopram Oxalate [Lexapro 10 mg Tablet] 10 mg PO DAILY 02/08/17 Furosemide [Lasix] 20 mg PO DAILY 02/08/17 Gabapentin [Neurontin] 800 mg PO TID 02/08/17 Melatonin 10 mg PO QHS 02/08/17 Multivits-Min/Iron/FA/Lutein [Centrum Silver Women Tablet] 1 tab PO DAILY Omeprazole 40 mg PO DAILY 02/08/17 Potassium Chloride [Klor-Con 10 Meq Tablet.sa] 20 meq PO DAILY 02/08/17 Sodium Chloride [[place] Nasal [place] 44 ml Bottle] 1 spray NASL QHS 02/08/17 Tiotropium [place] [Spiriva Respimat] 2 puff IH DAILY 02/08/17 Tramadol HCl [Ultram 50 mg Tablet] 50 mg PO BIDP PRN 02/08/17 Valsartan [Diovan 80 mg Tablet] 80 mg PO DAILY 02/08/17 Levofloxacin [Levaquin 500 mg Tablet] 500 mg PO DAILY #7 tablet 02/10/17 Nicotine [Nicoderm 21 mg/24 Hr Transderm Patch] 1 each TD DAILY #30 patch.td24 02/10/17 Prednisone 10 mg PO ASDIR PRN #32 tablet 02/10/17 History of Present Illness History of Present Illness: SOHA DORSEY is a 71 year old female known to my practice who presented to ED with above complaint. Patient reported episodes of nasal and sinus congestion for couple of weeks with associated postnasal drip and productive coughing. Patient continue to smoke cigarette, about 11/ PPD. She reported sputum character as brownish yellow with tinged of blood earlier today. She denied any significant associated chest pain. There is chills and feeling cold at home but denied any definite fever. No abdominal pain, nausea or vomiting. Appetite and p.o intake remain fair. Patient reported intermittent episodes of difficulty with voiding associate feeling of full and over distended bladder but mainly tripping or no voided urine with attempts to urinate. Patient reported episodes over last 3-4 months. Her initial evaluation in the ED suggested exacerbation of her COPD and possible UTI Hospital Course Hospital Course: Patient did respond to IV steroid and nebulizer therapy with regard to her exacerbated COPD. She was managed with IV Levofloxacin which was eventually changed to oral route along with switching her IV Solu-Medrol to oral Prednisone. She will remain on tapering dosage regimen of Prednisone and oral Levofloxacin therapy. I will follow up on her blood culture findings on outpatient basis. She as remain stable over last 24 hours and agreeable to be discharge home today. She will follow up in the office as instructed upon discharge. Physical Exam Vital Signs: Temp Pulse Resp BP Pulse Ox 98.2 F 71 20 138/95 H 95 02/10/17 11:53 02/10/17 14:00 02/10/17 11:53 02/10/17 11:53 02/10/17 11:53 Intake & Output 03/30/17 03/31/17 04/01/17 06:59 06:59 06:59 Intake Total 563 1458 355 Output Total 600 2600 600 [facility] [phone] Weight 70.3 kg 72 kg Physical Exam: General appearance: PRESENT: no acute distress, cooperative, obese Head exam: PRESENT: atraumatic, normocephalic Eye exam: PRESENT: conjunctiva pink, EOMI, PERRLA. ABSENT: scleral icterus Ear exam: PRESENT: normal external ear exam Mouth exam: PRESENT: moist, tongue midline Respiratory exam: PRESENT: decreased breath sounds - at lung bases, rhonchi - very minimal and end expiratory phase Cardiovascular exam: PRESENT: RRR. ABSENT: diastolic murmur, rubs, systolic murmur GI/Abdominal exam: PRESENT: normal bowel sounds, soft. ABSENT: distended, guarding, mass, organomegaly, rebound, tenderness Extremities exam: PRESENT: full ROM Musculoskeletal exam: PRESENT: deformity Neurological exam: PRESENT: alert, awake, oriented to person, oriented to place , oriented to time, oriented to situation, CN II-XII grossly intact. ABSENT: motor sensory deficit Psychiatric exam: PRESENT: appropriate affect, normal mood. ABSENT: homicidal ideation, suicidal ideation Skin exam: PRESENT: dry, intact, warm. ABSENT: cyanosis, rash Results Laboratory Results: 02/08/17 09:35 02/08/17 09:35 02/08/17 04:55 Clean Catch Midstream Urine Culture - Final Urogenital Phoebe Impressions: Chest X-Ray 02/07/17 22:32 IMPRESSION: NO SIGNIFICANT RADIOGRAPHIC FINDING IN THE CHEST. Qualifiers PATEINT BEING DISCHARGED WITH ANY OF THE FOLLOWING DIAGNOSIS?: No Plan Discharge Plan: D/C home today with follow up appointment as instructed upon discharge. Time Spent: Less than 30 Minutes
[2017-02-10 16:13] VITALS: BP 149/61
== END 2017-02-10 16:24 | disposition home or self-care (01) | DRG 872 ==
LOC: ER 21:25 → EH 02-08 04:46 → 3W 02-08 16:31
PROVIDERS: ADMIT Internal Medicine Geriatric Medicine; ATTEND Internal Medicine Geriatric Medicine
DX: A41.9 Sepsis, unspecified organism (principal); J44.1 Chronic obstructive pulmonary disease with (acute) exacerbation; I10 Essential (primary) hypertension; E78.5 Hyperlipidemia, unspecified; K21.9 Gastro-esophageal reflux disease without esophagitis; F41.8 Other specified anxiety disorders; Z79.01 Long term (current) use of anticoagulants; Z79.51 Long term (current) use of inhaled steroids; Z79.899 Other long term (current) drug therapy; Z88.1 Allergy status to other antibiotic agents; Z91.048 Other nonmedicinal substance allergy status
CPT/HCPCS: 36415; 71020; 80053; 81001; 82565; 82803; 83605; 85025; 85027; 85610; 85730; 87040; 87086; 93005; 93010; 94640; 94667; 96365; 96368; 99291; J1650; J1956; J2930; J3475; J3490; J7030; J7512; J7620

== ENCOUNTER 2017-11-15 16:51 | Emergency (ER) | payer MEDICARE, OTHER ==
[2017-11-15] MEDS ORDERED: IPRATROPIUM/ALBUTEROL 0.5-2.5 MG/3 ML AMPUL NEB ONE (18:11)
[2017-11-15] MEDS ORDERED: METHYLPREDNISOLONE INJ 125 MG/2 ML SDV IV ONE (18:11)
--- NOTE | 2017-11-15 18:17 | ER Document Report ---
ED Respiratory Problem - General Chief Complaint: Breathing Difficulty Stated Complaint: DIFFICULTY BREATHING Time Seen by Provider: 11/15/17 18:04 Notes: Patient is a 72-year-old female, past medical history COPD (on home 3 L oxygen) , current smoker, presents with 2-3 weeks of productive cough, shortness of breath and wheezing. She tried her albuterol nebulizer without much relief of her symptoms. Patient's last COPD exacerbation was 10 months ago. She denies chest pain, nausea, vomiting, fevers, hemoptysis, increased leg swelling, calf pain or back pain. TRAVEL OUTSIDE OF THE [place] IN LAST 30 DAYS: No - Related Data Allergies/Adverse Reactions: adhesive tape [Adhesive Tape] Allergy (Severe, Verified 11/15/17 16:52) peels skin off ceftriaxone sodium [From Rocephin] Allergy (Severe, Verified 11/15/17 16:52) redness/itch Past Medical History - General Information source: Patient - Social History Smoking Status: Current Every Day Smoker Chew tobacco use (# tins/day): No Frequency of alcohol use: Heavy Drug Abuse: None Family History: Reviewed & Not Pertinent Patient has suicidal ideation: No Patient has homicidal ideation: No - Past Medical History Cardiac Medical History: Reports: Hx Hypertension Denies: Hx Atrial Fibrillation, Hx Congestive Heart Failure, Hx Coronary Artery Disease, Hx Heart Attack, Hx Hypercholesterolemia, Hx Peripheral Vascular Disease, Hx Pulmonary Embolism, Hx Heart Murmur Pulmonary Medical History: Reports: Hx Bronchitis, Hx COPD Denies: Hx Asthma, Hx Pneumonia, Hx Respiratory Failure, Hx Sleep Apnea, Hx Tuberculosis Neurological Medical History: Reports: Hx Seizures. Denies: Hx Cerebrovascular Accident Endocrine Medical History: Denies: Hx Graves' Disease, Hx Hyperthyroidism, Hx Hypothyroidism Renal/ Medical History: Denies: Hx End Stage Renal Disease, Hx Kidney Stones, Hx Peritoneal Dialysis Malignancy Medical History: Denies: Hx Lung Cancer GI Medical History: Reports: Hx Gastroesophageal Reflux Disease, Hx Hepatitis, Hx Ulcer. Denies: Hx Crohn's Disease, Hx Hiatal Hernia, Hx Irritable Bowel, Hx Liver Failure, Hx Pancreatitis Musculoskeltal Medical History: Reports Hx Arthritis, Denies Hx Fibromyalgia, Denies Hx Multiple Sclerosis, Denies Hx Muscular Dystrophy Psychiatric Medical History: Reports: Hx Anxiety, Hx Depression Denies: Hx Dementia, Hx Post Traumatic Stress Disorder, Hx Schizophrenia Comment Only: Hx Bipolar Disorder - anxiety Traumatic Medical History: Denies: Hx Fractures Infectious Medical History: Reports: Hx Hepatitis Past Surgical History: Reports: Hx Cholecystectomy. Denies: Hx Appendectomy, Hx Bowel Surgery, Hx Section, Hx Colostomy, Hx Coronary Artery Bypass Graft, Hx Gastric Bypass Surgery, Hx Herniorrhaphy, Hx Hysterectomy, Hx Mastectomy, Hx Open Heart Surgery, Hx Pacemaker, Hx Tonsillectomy, Hx Tubal Ligation - Immunizations Immunizations up to date: Yes Hx Diphtheria, Pertussis, Tetanus Vaccination: No Hx Pneumococcal Vaccination: 07/14/11 Review of Systems - Review of Systems Notes: REVIEW OF SYSTEMS: CONSTITUTIONAL: -fevers, -chills EENT: -eye pain, -difficulty swallowing, -nasal congestion CARDIOVASCULAR:-chest pain, -syncope. RESPIRATORY: +cough, +SOB GASTROINTESTINAL: -abdominal pain, - nausea, -vomiting, -diarrhea GENITOURINARY: -dysuria, -hematuria MUSCULOSKELETAL: -back pain, -neck pain SKIN: -rash or skin lesions. HEMATOLOGIC: -easy bruising or bleeding. LYMPHATIC: -swollen, enlarged glands. NEUROLOGICAL: -altered mental status or loss of consciousness, -headache, - neurologic symptoms PSYCHIATRIC: -anxiety, -depression. ALL OTHER SYSTEMS REVIEWED AND NEGATIVE. Physical Exam - Vital signs Vitals: Temp Pulse Resp BP Pulse Ox 97.8 F 68 19 125/37 L 97 11/15/17 17:01 11/15/17 17:01 11/15/17 17:01 11/15/17 17:01 11/15/17 17:01 - Notes Notes: PHYSICAL EXAMINATION: GENERAL: Well-appearing, well-nourished and in no acute distress. HEAD: Atraumatic, normocephalic. EYES: Pupils equal round and reactive to light, extraocular movements intact, sclera anicteric, conjunctiva are normal. ENT: nares patent, oropharynx clear without exudates. Moist mucous membranes. NECK: Normal range of motion, supple without lymphadenopathy LUNGS: Diffuse wheezing and tachypnea. HEART: Regular rate and rhythm without murmurs ABDOMEN: Soft, nontender, normoactive bowel sounds. No guarding, no rebound. No masses appreciated. EXTREMITIES: Normal range of motion, no pitting or edema. No cyanosis. NEUROLOGICAL: Cranial nerves grossly intact. Normal speech, normal gait. Normal sensory and motor exams. PSYCH: Normal mood, normal affect. SKIN: Warm, Dry, normal turgor, no rashes or lesions noted. Course - Re-evaluation Re-evalutation: Patient appears well and is in no respiratory distress. Chest x-ray does not show any focal infiltrates and blood work is unremarkable. Her pro-BNP is slightly elevated, but below prior level and she does not appear to be fluid overloaded. She takes 20 mg of Lasix at home and is taking one when she goes back home. After 3 duonebs and steroids, she feels much better and is requesting discharge. She is satting above 92% on her home 3 L nasal cannula. Instructed her to continue albuterol every 2-4 hours and take 4 more days of prednisone. Given strict return precautions and she understands. - Vital Signs Vital signs: Temp Pulse Resp BP Pulse Ox 97.8 F 88 22 H 127/71 H 94 11/15/17 17:01 11/15/17 21:20 11/15/17 21:20 11/15/17 21:20 11/15/17 21:20 - Laboratory Result Diagrams: 11/15/17 19:13 11/15/17 19:13 Laboratory results interpreted by me: 11/15/17 11/15/17 11/15/17 19:13 19:13 19:13 Hgb 10.9 L Hct 34.5 L MCH 25.7 L MCHC 31.6 L RDW 15.5 H Sodium 132.9 L Glucose 126 H NT-Pro-B Natriuret Pep 1370 H - Diagnostic Test Radiology reviewed: Image reviewed, Reports reviewed Radiology results interpreted by me: CXR: NAD Discharge - Discharge Clinical Impression: Acute bronchitis with COPD Condition: Stable Disposition: HOME, SELF-CARE Additional Instructions: BRONCHITIS WITH BRONCHOSPASM (WHEEZING): You have bronchitis with bronchospasm (wheezing). Sometimes people develop wheezing with a chest cold. This occurs either because of an underlying tendency toward asthma or because the virus itself irritates the bronchial tubes. This irritation causes cough, shortness of breath, and wheezing. Emergency treatment of bronchospasm may include adrenaline shots or bronchodilator aerosol. You may feel lightheaded and have a rapid pulse for an hour or two. Rest and get plenty of fluids. At home, we'll treat you with a bronchodilator inhaler. Corticosteroids may be required for some patients. Until you recover, avoid chemical fumes, dusts, pollens, and exercising in very cold or dry air. If you smoke, stop now! Most cases of bronchitis get better without antibiotics. We prescribe antibiotics when we believe bacteria are damaging your airways, or if there's high risk the bronchitis will worsen into pneumonia. Increase your fluid intake. A cool mist humidifier may make your lungs more comfortable. An expectorant (cough medicine that loosens phlegm) can help. Repeated episodes of bronchitis and bronchospasm may result in lung damage -- for example, chronic bronchitis, recurrent pneumonias, or emphysema. If you develop a fever, increased wheezing, chest pain, or severe shortness of breath, you should contact the doctor immediately. INHALED BRONCHODILATORS: You have received a treatment of and/or prescription for an inhaled bronchodilator -- a medication which stimulates the airways in the lung to dilate. This improves the flow of air in asthma, bronchitis, and emphysema. These medicines have some similarity to adrenaline, and can cause similar side effects: shakiness, racing heart, and a sense of nervousness. These side effects decrease with time. Contact your doctor if these side effects are severe. Do not over-use the medicine. Too-frequent use of the inhaler may make it ineffective. Call your doctor if the inhaler is not controlling your symptoms at the prescribed doses. STEROID MEDICATION: You have been given an injection of or oral medicine of the cortisone/ steroid class. This medication is used to control inflammation or allergy. Willie t is usually only given for a short period of time, until the acute process subsides. There are usually no side effects from short-term use of cortisone-like medications. Some persons feel an increased sense of well-being and are not sleepy at bedtime. Long-term use of cortisone medications is best avoided, unless required for a severe condition. If your condition does not remit, or relapses after the course of corticosteroid medication, you should consult your physician. USE OF ACETAMINOPHEN (Tylenol): Acetaminophen may be taken for pain relief or fever control. It's much safer than aspirin, offering a wider range of "safe" dosages. It is safe during . Some brand names are Tylenol, Panadol, Datril, Anacin 3, Tempra, and Liquiprin. Acetaminophen can be repeated every four hours. The following are maximum recommended dosages: >89 pounds or adults 650 mg to 900 mg Acetaminophen can be repeated every four hours. Maximum dose not to exceed 4000 mg a day. SMOKING: If you smoke, you should stop smoking. The tar and chemicals in cigarette smoke are harmful. Smoking has been shown to cause: emphysema chronic bronchitis lung cancer mouth and throat cancer stomach and pancreas cancer premature aging defects In addition, smoking increases ear and lung infections in children of smokers. FOLLOW-UP CARE: If you have been referred to a physician for follow-up care, call the physician s office for an appointment as you were instructed or within the next two days. If you experience worsening or a significant change in your symptoms, notify the physician immediately or return to the Emergency Department at any time for re-evaluation. Prescriptions: Albuterol Sulfate [Proair HFA Inhalation Aerosol 8.5 gm MDI] 2 puff IH Q4H PRN # 1 mdi PRN Reason: Prednisone [Deltasone 20 mg Tablet] 3 tab PO DAILY 4 Days tablet Referrals: STELLA NESBITT MD [Primary Care Provider] - Follow up as needed
--- NOTE | 2017-11-15 18:56 | RADIOLOGY REPORT (SQ) ---
EXAM DESCRIPTION: CHEST PA/LAT COMPLETED DATE/TIME: 11/15/2017 6:46 pm REASON FOR STUDY: SOB COMPARISON: None. EXAM PARAMETERS: NUMBER OF VIEWS: two views TECHNIQUE: Digital Frontal and Lateral radiographic views of the chest acquired. RADIATION DOSE: NA LIMITATIONS: none FINDINGS: LUNGS AND PLEURA: No opacities, masses or pneumothorax. No pleural effusion. MEDIASTINUM AND HILAR STRUCTURES: No masses or contour abnormalities. HEART AND VASCULAR STRUCTURES: Heart normal size. No evidence for failure. BONES: Multiple compression fractures. Old left rib fractures. Nonacute. HARDWARE: None in the chest. OTHER: No other significant finding. IMPRESSION: No acute pulmonary disease. TECHNICAL DOCUMENTATION: JOB ID: [id number] [employer]- All Rights Reserved
--- NOTE | 2017-11-15 19:11 | EKG REPORT ---
SEVERITY:- ABNORMAL ECG - ATRIAL FIBRILLATION, V-RATE 49-57 ABNRM R PROG, CONSIDER ASMI OR LEAD PLACEMENT : Confirmed by: Astrid Celestin 15-Nov-2017 19:10:28
[2017-11-15 19:30] LABS: ABSOLUTE BASOPHILS # (AUTO) 0.1 10^3/uL (0.0-0.2); ABSOLUTE EOSINOPHILS # (AUTO) 0.3 10^3/uL (0.0-0.6); ABSOLUTE MONOCYTES (AUTO) 1.2 10^3/uL (0.1-1.4); ABSOLUTE NEUT (AUTO) 6.8 10^3/uL (1.7-8.2); BASOPHILS % (AUTO) 0.8 % (0-2); EOSINOPHILS % (AUTO) 2.8 % (0-6); HEMATOCRIT 34.5 % (36.0-47.0); HEMOGLOBIN 10.9 g/dL (12.0-15.5); LYMPHOCYTES % (AUTO) 19.3 % (13-45); MEAN CORPUSCULAR HEMOGLOBIN 25.7 pg (27.0-33.4); MEAN CORPUSCULAR HGB CONC 31.6 g/dL (32.0-36.0); MEAN CORPUSCULAR VOLUME 81 fl (80-97); MONOCYTES % (AUTO) 11.5 % (3-13); PLATELET COUNT 260 10^3/uL (150-450); RED BLOOD COUNT 4.24 10^6/uL (3.72-5.28); RED CELL DISTRIBUTION WIDTH 15.5 % (11.5-14.0); SEGMENTED NEUTROPHILS % (AUTO) 65.6 % (42-78); TOTAL CELLS COUNTED % (AUTO) 100 %; WHITE BLOOD COUNT 10.4 10^3/uL (4.0-10.5)
[2017-11-15 19:46] LABS: VENOUS BLOOD BASE EXCESS -4.6 mmol/L; VENOUS BLOOD HCO3 20.5 mmol/L (20-32); VENOUS BLOOD PCO2 38.4 mmHg (35-63); VENOUS BLOOD PH 7.35 (7.30-7.42)
[2017-11-15 19:50] LABS: ALANINE AMINOTRANSFERASE 24 U/L (9-52); ALBUMIN 3.8 g/dL (3.5-5.0); ALKALINE PHOSPHATASE 125 U/L (38-126); ANION GAP 10 (5-19); ASPARTATE AMINO TRANSFERASE 24 U/L (14-36); BILIRUBIN,DIRECT 0.3 mg/dL (0.0-0.4); BILIRUBIN,TOTAL 0.5 mg/dL (0.2-1.3); BLOOD UREA NITROGEN 8 mg/dL (7-20); CALCIUM 9.3 mg/dL (8.4-10.2); CARBON DIOXIDE 24 mmol/L (22-30); CHLORIDE 99 mmol/L (98-107); CREATINE KINASE 57 U/L (30-135); GLUCOSE 126 mg/dL (75-110); SODIUM 132.9 mmol/L (137-145); TOTAL PROTEIN 6.6 g/dL (6.3-8.2)
[2017-11-15 20:02] LABS: NT PRO BNP 1370 pg/mL (5-900)
[2017-11-15 20:03] LABS: TROPONIN I < 0.012 ng/mL
[2017-11-15 21:21] VITALS: BP 127/71
== END 2017-11-15 21:21 | disposition home or self-care (01) ==
LOC: ER 16:51
DX: J20.9 Acute bronchitis, unspecified (principal); J44.0 Chronic obstructive pulmonary disease with (acute) lower respiratory infection; R06.02 Shortness of breath; R05 Cough; R06.2 Wheezing; F17.200 Nicotine dependence, unspecified, uncomplicated
CPT/HCPCS: 93005; 94640; 99285; 96374; 36415; 82550; 85025; 80053; 84484; 82803; 83880; 71046; 93010; J2930; A9270; J7620

== ENCOUNTER → 2018-02-05 | Outpatient (CLI) | payer MEDICARE, OTHER ==
[2018-02-06 13:45] LABS: ALANINE AMINOTRANSFERASE 17 U/L (9-52); ALBUMIN 4.1 g/dL (3.5-5.0); ALKALINE PHOSPHATASE 96 U/L (38-126); ANION GAP 13 (5-19); ASPARTATE AMINO TRANSFERASE 26 U/L (14-36); BILIRUBIN,DIRECT 0.2 mg/dL (0.0-0.4); BILIRUBIN,TOTAL 0.3 mg/dL (0.2-1.3); BLOOD UREA NITROGEN 6 mg/dL (7-20); CALCIUM 9.4 mg/dL (8.4-10.2); CARBON DIOXIDE 22 mmol/L (22-30); CHLORIDE 96 mmol/L (98-107); GLUCOSE 100 mg/dL (75-110); POTASSIUM 4.1 mmol/L (3.6-5.0); SODIUM 131.4 mmol/L (137-145); TOTAL PROTEIN 6.7 g/dL (6.3-8.2)
== END ==
LOC: OD 16:07
PROVIDERS: ATTEND Internal Medicine Geriatric Medicine
DX: I10 Essential (primary) hypertension (principal)
CPT/HCPCS: 36415; 80053

== ENCOUNTER 2018-05-24 17:31 | Inpatient (IN) | payer MEDICARE, OTHER ==
[2018-05-24] MEDS ORDERED: IPRATROPIUM/ALBUTEROL 0.5-2.5 MG/3 ML AMPUL NEB ONE (17:48)
[2018-05-24] MEDS ORDERED: NORMAL SALINE 1000 ML 1,000 ML IV ONE ×2 (18:04→22:56)
[2018-05-24] MEDS ORDERED: LEVOFLOXACIN 500 MG/D5W RTU 500 MG/100 ML RTUPB IV ONE (18:04)
[2018-05-24 18:08] LABS: VENOUS BLOOD BASE EXCESS -3.2 mmol/L; VENOUS BLOOD HCO3 19.5 mmol/L (20-32); VENOUS BLOOD PCO2 26.8 mmHg (35-63); VENOUS BLOOD PH 7.48 (7.30-7.42)
[2018-05-24 18:12] LABS: HEMATOCRIT 27.7 % (36.0-47.0); HEMOGLOBIN 8.7 g/dL (12.0-15.5); MEAN CORPUSCULAR HEMOGLOBIN 22.3 pg (27.0-33.4); MEAN CORPUSCULAR HGB CONC 31.5 g/dL (32.0-36.0); MEAN CORPUSCULAR VOLUME 71 fl (80-97); PLATELET COUNT 262 10^3/uL (150-450); RED CELL DISTRIBUTION WIDTH 16.7 % (11.5-14.0)
[2018-05-24 18:13] LABS: ALANINE AMINOTRANSFERASE 13 U/L (9-52); ALBUMIN 3.3 g/dL (3.5-5.0); ALKALINE PHOSPHATASE 118 U/L (38-126); ANION GAP 17 (5-19); ASPARTATE AMINO TRANSFERASE 23 U/L (14-36); BILIRUBIN,DIRECT 0.7 mg/dL (0.0-0.4); BILIRUBIN,TOTAL 1.2 mg/dL (0.2-1.3); BLOOD UREA NITROGEN 7 mg/dL (7-20); CALCIUM 7.7 mg/dL (8.4-10.2); CARBON DIOXIDE 17 mmol/L (22-30); CHLORIDE 90 mmol/L (98-107); CREATINE KINASE 103 U/L (30-135); GLUCOSE 109 mg/dL (75-110); POTASSIUM 3.3 mmol/L (3.6-5.0); TOTAL PROTEIN 6.6 g/dL (6.3-8.2)
--- NOTE | 2018-05-24 18:14 | RADIOLOGY REPORT (SQ) ---
EXAM DESCRIPTION: CHEST SINGLE VIEW COMPLETED DATE/TIME: 05/24/2018 6:03 pm REASON FOR STUDY: resp distress COMPARISON: November 2017 EXAM PARAMETERS: NUMBER OF VIEWS: One view. TECHNIQUE: Single frontal radiographic view of the chest acquired. RADIATION DOSE: NA LIMITATIONS: None. FINDINGS: LUNGS AND PLEURA: There is airspace consolidation in the right upper lobe which could repr esent atelectatic changes or pneumonic consolidation. Remaining lung cherry are clear. No pleural e ffusions are identified. MEDIASTINUM AND HILAR STRUCTURES: No masses. Contour normal. HEART AND VASCULAR STRUCTURES: Heart normal in size. Normal vasculature. BONES: No acute findings. HARDWARE: None in the chest. OTHER: No other significant finding. IMPRESSION: Airspace consolidation in the right upper lobe which could represent atelectatic changes or a pneumonic consolidation. Remaining lung cherry are clear. TECHNICAL DOCUMENTATION: JOB ID: [id number] [employer]- All Rights Reserved Reading location - IP/workstation name: [email or web address]
[2018-05-24 18:25] LABS: CREATINE KINASE MB 0.36 ng/mL (<4.55)
[2018-05-24 18:27] LABS: TROPONIN I < 0.012 ng/mL
[2018-05-24 18:29] LABS: ABSOLUTE LYMPHOCYTES# (MANUAL) 3.4 10^3/uL (0.5-4.7); ABSOLUTE NEUTROPHILS# (MANUAL) 31.5 10^3/uL (1.7-8.2); BAND NEUTROPHILS % (MANUAL) 4 % (3-5); BASOPHILS % (MANUAL) 0 % (0-2); EOSINOPHILS % (MANUAL) 0 % (0-6); LYMPHOCYTES % (MANUAL) 9 % (13-45); MONOCYTES % (MANUAL) 8 % (3-13); SEGMENTED NEUTROPHILS % (MAN) 79 % (42-78); TOTAL CELLS COUNTED 100
[2018-05-24 18:31] LABS: ANISOCYTOSIS 1+; OVALOCYTES SLIGHT; PLATELET COMMENT ADEQUATE; POIKILOCYTOSIS SLIGHT; TOXIC GRANULATION SLIGHT; TOXIC VACUOLATION PRESENT
[2018-05-24 18:35] LABS: WHITE BLOOD COUNT 37.9 10^3/uL (4.0-10.5)
--- NOTE | 2018-05-24 19:37 | ER Document Report ---
ED General - General Chief Complaint: Breathing Difficulty Stated Complaint: BREATHING PROBLEMS Time Seen by Provider: 05/24/18 17:48 TRAVEL OUTSIDE OF THE [place] IN LAST 30 DAYS: No - HPI Patient complains to provider of: Fever shortness of breath Notes: Patient coming in from home via EMS for fever shortness of breath. Patient states her last 3 days increased shortness of breath after for EMS was greater than 101. Patient has a history of COPD and also states CHF. Denies any pain chest pain abdominal pain no nausea vomiting diarrhea no recent antibiotics no recent travel. Patient does continue to smoke. Patient states cough however nonproductive. Patient blood pressure sniffly hypotensive upon arrival here in the ER. - Related Data Allergies/Adverse Reactions: adhesive tape [Adhesive Tape] Allergy (Severe, Verified 05/24/18 17:59) peels skin off ceftriaxone sodium [From Rocephin] Allergy (Severe, Verified 05/24/18 17:59) redness/itch Past Medical History - Social History Smoking Status: Current Every Day Smoker Chew tobacco use (# tins/day): No Frequency of alcohol use: Occasional Drug Abuse: None Family History: Reviewed & Not Pertinent Patient has suicidal ideation: No Patient has homicidal ideation: No - Past Medical History Cardiac Medical History: Reports: Hx Congestive Heart Failure, Hx Hypertension Denies: Hx Atrial Fibrillation, Hx Coronary Artery Disease, Hx Heart Attack, Hx Hypercholesterolemia, Hx Peripheral Vascular Disease, Hx Pulmonary Embolism, Hx Heart Murmur Pulmonary Medical History: Reports: Hx Bronchitis, Hx COPD Denies: Hx Asthma, Hx Pneumonia, Hx Respiratory Failure, Hx Sleep Apnea, Hx Tuberculosis Neurological Medical History: Reports: Hx Seizures. Denies: Hx Cerebrovascular Accident Endocrine Medical History: Denies: Hx Graves' Disease, Hx Hyperthyroidism, Hx Hypothyroidism Renal/ Medical History: Denies: Hx End Stage Renal Disease, Hx Kidney Stones, Hx Peritoneal Dialysis Malignancy Medical History: Denies: Hx Lung Cancer GI Medical History: Reports: Hx Gastroesophageal Reflux Disease, Hx Hepatitis, Hx Ulcer. Denies: Hx Crohn's Disease, Hx Hiatal Hernia, Hx Irritable Bowel, Hx Liver Failure, Hx Pancreatitis Musculoskeletal Medical History: Reports Hx Arthritis, Denies Hx Fibromyalgia, Denies Hx Multiple Sclerosis, Denies Hx Muscular Dystrophy Psychiatric Medical History: Reports: Hx Anxiety, Hx Depression Denies: Hx Dementia, Hx Post Traumatic Stress Disorder, Hx Schizophrenia Comment Only: Hx Bipolar Disorder - anxiety Traumatic Medical History: Denies: Hx Fractures Infectious Medical History: Reports: Hx Hepatitis Past Surgical History: Reports: Hx Cholecystectomy. Denies: Hx Appendectomy, Hx Bowel Surgery, Hx Section, Hx Colostomy, Hx Coronary Artery Bypass Graft, Hx Gastric Bypass Surgery, Hx Herniorrhaphy, Hx Hysterectomy, Hx Mastectomy, Hx Open Heart Surgery, Hx Pacemaker, Hx Tonsillectomy, Hx Tubal Ligation - Immunizations Immunizations up to date: Yes Hx Diphtheria, Pertussis, Tetanus Vaccination: No Hx Pneumococcal Vaccination: 07/14/11 Review of Systems - Review of Systems Constitutional: Fever EENT: No symptoms reported Cardiovascular: No symptoms reported Respiratory: Short of breath Gastrointestinal: No symptoms reported Genitourinary: No symptoms reported Female Genitourinary: No symptoms reported Musculoskeletal: No symptoms reported Skin: No symptoms reported Hematologic/Lymphatic: No symptoms reported Neurological/Psychological: No symptoms reported -: Yes All other systems reviewed and negative Physical Exam - Vital signs Vitals: BP 74/59 L 05/24/18 17:40 Interpretation: Hypotensive, Febrile - General General appearance: Appears well, Alert - HEENT Head: Normocephalic, Atraumatic Eyes: Normal Pupils: PERRL - Respiratory Respiratory status: No respiratory distress Chest status: Nontender Breath sounds: Rhonchi, Wheezing Chest palpation: Normal - Cardiovascular Rhythm: Regular Heart sounds: Normal auscultation Murmur: No - Abdominal Inspection: Normal Distension: No distension Bowel sounds: Normal Tenderness: Nontender Organomegaly: No organomegaly - Back Back: Normal, Nontender - Extremities General upper extremity: Normal inspection, Nontender, Normal color, Normal ROM , Normal temperature General lower extremity: Normal inspection, Nontender, Normal color, Normal ROM , Normal temperature, Normal weight bearing. No: Shayan's sign - Neurological Neuro grossly intact: Yes Cognition: Normal Orientation: AAOx4 [place] Coma Scale Eye Opening: Spontaneous [place] Coma Scale Verbal: Oriented [place] Coma Scale Motor: Obeys Commands [place] Coma Scale Total: 15 Speech: Normal Motor strength normal: LUE, RUE, LLE, RLE Sensory: Normal - Psychological Associated symptoms: Normal affect, Normal mood - Skin Skin Temperature: Warm Skin Moisture: Dry Skin Color: Normal Course - Re-evaluation Re-evalutation: 05/24/18 23:58 Exam for underlying sepsis patient was given IV fluids initially manual blood pressure reading approximately 20 points higher than the automatic cuff. However patient continued to have labile pressures even with fluid resuscitation. Therefore decision was made to place patient on Levophed place a central line. Patient was given a dose of Levaquin for antibiotic coverage is that the chest x-ray does show pneumonia with significant leukocytosis. Patient does not look to be at risk for hospital-acquired etiologies more likely community-acquired pneumonia. Patient's case was discussed with the PCP Dr. Fowler agrees with ICU admission at this time. - Vital Signs Vital signs: Temp Pulse Resp BP Pulse Ox 97.3 F 96 23 H 101/48 L 100 05/24/18 23:00 05/24/18 17:45 05/24/18 22:01 05/24/18 22:01 05/24/18 22:01 - Laboratory Result Diagrams: 05/24/18 17:48 05/24/18 17:48 Laboratory results interpreted by me: 05/24/18 05/24/18 05/24/18 17:48 17:48 17:48 WBC 37.9 H* Hgb 8.7 L Hct 27.7 L MCV 71 L MCH 22.3 L MCHC 31.5 L RDW 16.7 H Seg Neuts % (Manual) 79 H Lymphocytes % (Manual) 9 L Abs Neuts (Manual) 31.5 H Abs Monocytes (Manual) 3.0 H VBG pH VBG pCO2 VBG HCO3 Sodium 124.0 L Potassium 3.3 L Chloride 90 L Carbon Dioxide 17 L Calcium 7.7 L Direct Bilirubin 0.7 H NT-Pro-B Natriuret Pep 4590 H Albumin 3.3 L 05/24/18 17:52 WBC Hgb Hct MCV MCH MCHC RDW Seg Neuts % (Manual) Lymphocytes % (Manual) Abs Neuts (Manual) Abs Monocytes (Manual) VBG pH 7.48 H VBG pCO2 26.8 L VBG HCO3 19.5 L Sodium Potassium Chloride Carbon Dioxide Calcium Direct Bilirubin NT-Pro-B Natriuret Pep Albumin Procedures - Central Line Right Internal jugular Consent obtained: Yes Central line pre-insertion: Sterile PPE donned, Chloraprep applied, Sterile drapes applied Central line lumen type: Triple Anesthetic type: 1% Lidocaine mL's of anesthesia: 3 Ultrasound guided: Yes CM at insertion site: 20 Line secured with sutures: Yes Central line post-insertion: Blood return from lumens, Biopatch applied, Sutured , Sterile dressing applied, Position confirmed w/ CXR Number of attempts: 1 Complications: No Critical Care Note - Critical Care Note Total time excluding time spent on procedures (mins): 60 Comments: Multiple evaluation for patient with sepsis and hypotension Discharge - Discharge Clinical Impression: Acute bronchitis with COPD Pneumonia Qualifiers: Pneumonia type: due to unspecified organism Laterality: unspecified laterality Lung location: unspecified part of lung Qualified Code(s): J18.9 - Pneumonia, unspecified organism Sepsis Qualifiers: Sepsis type: sepsis due to unspecified organism Qualified Code(s): A41.9 - Sepsis, unspecified organism Hypotension Qualifiers: Hypotension type: unspecified hypotension type Qualified Code(s): I95.9 - Hypotension, unspecified CHF (congestive heart failure) Qualifiers: Heart failure type: unspecified Heart failure chronicity: unspecified Qualified Code(s): I50.9 - Heart failure, unspecified Condition: Good Disposition: ADMITTED INPATIENT Admitting Provider: Janeth Unit Admitted: ICU
--- NOTE | 2018-05-24 20:40 | EKG REPORT ---
SEVERITY:- ABNORMAL ECG - ATRIAL FIBRILLATION, V-RATE 80-118 : Confirmed by: Karla Campos MD 24-May-2018 20:39:43
[2018-05-24 21:43] LABS: AMORPHOUS SEDIMENT,URINE TRACE /HPF; APPEARANCE,URINE CLOUDY; BILIRUBIN,URINE NEGATIVE (NEGATIVE); COLOR,URINE YELLOW; GLUCOSE, URINE NEGATIVE (NEGATIVE); KETONES,URINE TRACE mg/dL (NEGATIVE); LEUKOCYTE ESTERASE,URINE SMALL (NEGATIVE); NITRITE,URINE NEGATIVE (NEGATIVE); PROTEIN,URINE NEGATIVE (NEGATIVE); URINE SPECIFIC GRAVITY 1.005
[2018-05-24] MEDS ORDERED: ACETAMINOPHEN 325 MG TABLET PO PRN (21:43)
[2018-05-24] MEDS ORDERED: DOPAMINE HCL 800 MG/D5W 250 ML IV PRN (21:43)
[2018-05-24] MEDS ORDERED: DEXTROSE 5%-WATER 250 ML with NOREPINEPHRINE BITARTRATE 4 MG IV PRN ×2 (21:45)
[2018-05-24] MEDS: CEFEPIME 1 GM/D5W RTU 1 GM/50 ML RTUPB IV SCH (22:51)
--- NOTE | 2018-05-24 23:34 | RADIOLOGY REPORT (SQ) ---
EXAM DESCRIPTION: XR CHEST 1 VIEW COMPLETED DATE/TME: 05/24/2018 22:57 EXAM DESCRIPTION: Single view of the chest CLINICAL HISTORY: s/p line placement COMPARISON: 05/24/2018 FINDINGS: Single frontal view of the chest. Right IJ central venous catheter tip in the high right atrium. Cardia mediastinal silhouette is stable. Leads overlie the chest. Right upper lung airspace opacity again identified. No pneumothorax or large effusion. Remote left rib fractures. Upper abdominal soft tissues are unremarkable. IMPRESSION: 1. Right IJ central venous catheter with tip in the high right atrium. 2. Slight interval progression of right upper lobe airspace opacity.
[2018-05-24] MEDS: IPRATROPIUM/ALBUTEROL 0.5-2.5 MG/3 ML AMPUL NEB PRN (23:55)
[2018-05-25] MEDS: LANSOPRAZOLE 30 MG TAB.RAP.DR PO SCH (06:25)
[2018-05-25] MEDS: IPRATROPIUM/ALBUTEROL 0.5-2.5 MG/3 ML AMPUL NEB PRN ×2 (08:32→18:16)
[2018-05-25 08:42] LABS: PATH REVIEW PATHOLOGIST REVIEWED
[2018-05-25 08:58] LABS: HEMATOCRIT 29.4 % (36.0-47.0); HEMOGLOBIN 9.1 g/dL (12.0-15.5); MEAN CORPUSCULAR HEMOGLOBIN 22.2 pg (27.0-33.4); MEAN CORPUSCULAR VOLUME 72 fl (80-97); PLATELET COUNT 253 10^3/uL (150-450); RED CELL DISTRIBUTION WIDTH 16.6 % (11.5-14.0)
[2018-05-25 09:04] LABS: ARTERIAL BLOOD BASE EXCESS -5.8 mmol/L; ARTERIAL BLOOD H2CO3 0.97 mmol/L (1.05-1.35); ARTERIAL BLOOD HCO3 18.5 mmol/L (20-26); ARTERIAL BLOOD O2 SATURATION 96.5 % (94-98); ARTERIAL BLOOD PCO2 32.2 mmHg (35-45); ARTERIAL BLOOD PH 7.38 (7.35-7.45); ARTERIAL BLOOD PO2 86.6 mmHg (80-100); ARTERIAL BLOOD TOTAL CO2 19.5 mmol/L (21-25)
[2018-05-25 09:09] LABS: ARTERIAL BLOOD FIO2 4L
[2018-05-25 09:18] LABS: ALANINE AMINOTRANSFERASE 15 U/L (9-52); ALBUMIN 2.8 g/dL (3.5-5.0); ALKALINE PHOSPHATASE 99 U/L (38-126); ANION GAP 13 (5-19); ASPARTATE AMINO TRANSFERASE 14 U/L (14-36); BILIRUBIN,DIRECT 0.5 mg/dL (0.0-0.4); BILIRUBIN,TOTAL 0.8 mg/dL (0.2-1.3); BLOOD UREA NITROGEN 8 mg/dL (7-20); CARBON DIOXIDE 19 mmol/L (22-30); CHLORIDE 102 mmol/L (98-107); GLUCOSE 174 mg/dL (75-110); SODIUM 133.8 mmol/L (137-145); TOTAL PROTEIN 5.7 g/dL (6.3-8.2)
[2018-05-25 09:20] LABS: WHITE BLOOD COUNT 37.4 10^3/uL (4.0-10.5)
[2018-05-25 09:22] LABS: ABSOLUTE LYMPHOCYTES# (MANUAL) 1.5 10^3/uL (0.5-4.7); ABSOLUTE MONOCYTES # (MANUAL) 1.1 10^3/uL (0.1-1.4); ABSOLUTE NEUTROPHILS# (MANUAL) 34.8 10^3/uL (1.7-8.2); ANISOCYTOSIS 1+; BAND NEUTROPHILS % (MANUAL) 6 % (3-5); BASOPHILS % (MANUAL) 0 % (0-2); EOSINOPHILS % (MANUAL) 0 % (0-6); HYPOCHROMASIA 1+; LYMPHOCYTES % (MANUAL) 4 % (13-45); MONOCYTES % (MANUAL) 3 % (3-13); OVALOCYTES 1+; PLATELET COMMENT ADEQUATE; POIKILOCYTOSIS 1+; POLYCHROMASIA SLIGHT; SEGMENTED NEUTROPHILS % (MAN) 87 % (42-78); TOTAL CELLS COUNTED 100; TOXIC GRANULATION SLIGHT; TOXIC VACUOLATION PRESENT
[2018-05-25 09:29] LABS: POTASSIUM 2.9 mmol/L (3.6-5.0)
[2018-05-25] MEDS ORDERED: ENOXAPARIN SODIUM INJ 40 MG/0.4 ML DISP.SYRIN SUBCUT SCH (10:00)
[2018-05-25] MEDS: CEFEPIME 1 GM/D5W RTU 1 GM/50 ML RTUPB IV SCH ×2 (10:00→22:39)
[2018-05-25] MEDS: POTASSIUM CHLORIDE 20 MEQ/50 ML RTU IV SCH ×3 (10:31→16:23)
[2018-05-25] MEDS: LEVOFLOXACIN 500 MG/D5W RTU 500 MG/100 ML RTUPB IV SCH (10:56)
--- NOTE | 2018-05-25 19:10 | PDOC H&P ---
History of Present Illness Admission Date/PCP: 05/24/18 19:53 STELLA DELICIA Patient complains of: Difficulty with breathing History of Present Illness: SOHA DORSEY is a 73 year old female patient known to my practice who presented to the ED via EMS service with complain of worsening difficulty with breathing, fever and non-productive coughing for several days. Her morbidities include COPD and current cigarette smoking. Her temperature was reported as 101F by EMS personnel prior to arrival in the ED. She denied any chest pain, nausea, vomiting, abdominal pain, or diarrhea. No dysuria, flank pain or hematuria. Her initial evaluation in the ED was remarkable for severe leukocytosis, respiratory distress, significant hypotension and chest X ray suggestive right upper lobe air space disease process with SIRS and septic shock. She was initially managed with fluid resuscitation and antibiotic therapy. Her morbidities include chronic Atrial Fibrillation, Congestive Heart Failure, Hypertension, COPD, Seizures, Gastroesophageal Reflux Disease, Arthritis, Mixed Anxiety and Depression. Past Medical History Cardiac Medical History: Reports: Atrial Fibrillation - chronic, Congestive Heart Failure, Hypertension Denies: Coronary Artery Disease, Myocardial Infarction, Hyperlipidema, Peripheral Vascular Disease, Pulmonary Embolism, Heart Murmur Pulmonary Medical History: Reports: Bronchitis, Chronic Obstructive Pulmonary Disease (COPD) Denies: Asthma, Pneumonia, Respiratory Failure, Sleep Apnea, Tuberculosis Neurological Medical History: Reports: Seizures Endocrine Medical History: Denies: Hyperthyroidism, Hypothyroidism Renal/ Medical History: Denies: End Stage Renal Disease Malignancy Medical History: Denies: Lung Cancer GI Medical History: Reports: Gastroesophageal Reflux Disease, Hepatitis Denies: Crohn's Disease, Hiatal Hernia Musculoskeltal Medical History: Reports: Arthritis Denies: Fibromyalgia Psychiatric Medical History: Reports: Depression Denies: Dementia, Post Traumatic Stress Disorder Comment Only: Bipolar Disorder - anxiety Hematology: Denies: Anemia, Sickle Cell Disease Past Surgical History Past Surgical History: Reports: Cholecystectomy Denies: Amputation, Appendectomy, Section, Colostomy, Coronary Artery Bypass Graft, Gastric Bypass Surgery, Herniorrhaphy, Hysterectomy, Mastectomy, Pacemaker, Tonsillectomy, Tubal Ligation Social History Smoking Status: Current Every Day Smoker Cigarettes Packs Per Day: 1 Frequency of Alcohol Use: Occasional Hx Recreational Drug Use: No Drugs: None Hx Prescription Drug Abuse: No - Advance Directive Resuscitation Status: Full Code Family History Family History: Reviewed & Not Pertinent Parental Family History Reviewed: Yes Children Family History Reviewed: Yes Sibling(s) Family History Reviewed.: Yes Medication/Allergy Home Medications: Acetazolamide [Diamox 250 mg Tab] 250 mg PO DAILY 02/08/17 Apixaban [Eliquis 5 mg Tablet] 5 mg PO BID 02/08/17 Clonazepam [Klonopin 0.25 mg Tablet Rapid Dissolve] 0.25 mg SL QHS 02/08/17 Furosemide [Lasix] 20 mg PO DAILY 02/08/17 Gabapentin [Neurontin] 800 mg PO TID 02/08/17 Multivit-Min/Iron/Folic/Lutein [Centrum Silver Women Tablet] 1 tab PO DAILY Omeprazole 40 mg PO DAILY 02/08/17 Tiotropium [place] [Spiriva Respimat] 1 puff IH DAILY 02/08/17 Albuterol Sulfate [Proair HFA Inhalation Aerosol 8.5 gm MDI] 2 puff IH BIDP PRN 05/25/18 Fluticasone Propionate [Flonase Nasal [place] 50 Mcg/[place] 16 gm] 2 spray NASL DAILYP PRN 05/25/18 Fluticasone Propionate [Flovent HFA 220 mcg MDI] 2 puff IH BID 05/25/18 Potassium Chloride [Klor-Con M20] 20 meq PO DAILY 05/25/18 Roflumilast [Daliresp] 250 mcg PO DAILY 05/25/18 Valsartan [Diovan 160 mg Tablet] 160 mg PO DAILY 05/25/18 Allergies/Adverse Reactions: adhesive tape [Adhesive Tape] Allergy (Severe, Verified 05/25/18 10:16) peels skin off ceftriaxone sodium [From Rocephin] Allergy (Severe, Verified 05/25/18 10:16) redness/itch Review of Systems Constitutional: PRESENT: anorexia, chills, fever(s), weakness Eyes: ABSENT: visual disturbances Ears: PRESENT: hearing changes Nose, Mouth, and Throat: ABSENT: as per HPI, headache(s), mouth pain, sore throat, vertigo, other Cardiovascular: ABSENT: chest pain, dyspnea on exertion, edema, orthropnea, palpitations Respiratory: PRESENT: cough, dyspnea. ABSENT: hemoptysis, sputum Gastrointestinal: ABSENT: abdominal pain, constipation, diarrhea, hematemesis, hematochezia, nausea, vomiting Genitourinary: ABSENT: dysuria, hematuria Musculoskeletal: ABSENT: joint swelling Integumentary: ABSENT: rash, wounds Neurological: ABSENT: abnormal gait, abnormal speech, confusion, dizziness, focal weakness, syncope Psychiatric: PRESENT: anxiety, depression. ABSENT: as per HPI, hallucinations, homidical ideation, suicidal ideation, other Endocrine: ABSENT: cold intolerance, heat intolerance, polydipsia, polyuria Hematologic/Lymphatic: ABSENT: easy bleeding, easy bruising, lymphadenopathy Allergic/Immunologic: ABSENT: seasonal rhinorrhea Physical Exam Vital Signs: Temp Pulse Resp BP Pulse Ox 98.2 F 94 23 H 122/54 L 97 05/25/18 07:27 05/25/18 06:00 05/25/18 07:27 05/25/18 06:58 05/25/18 07:27 Intake & Output 05/24/18 05/25/18 05/26/18 06:59 06:59 06:59 Intake Total 898 Output Total 1300 Balance -402 Weight 68.7 kg General appearance: PRESENT: mild distress - due to dyspnea, obese Head exam: PRESENT: atraumatic, normocephalic Eye exam: PRESENT: conjunctiva pink, EOMI, PERRLA. ABSENT: scleral icterus Mouth exam: PRESENT: moist Neck exam: PRESENT: full ROM. ABSENT: carotid bruit, JVD, lymphadenopathy, thyromegaly Respiratory exam: PRESENT: crackles, decreased breath sounds, rhonchi, tachypnea , wheezes Cardiovascular exam: PRESENT: irregular rhythm, +S1, +S2 Pulses: PRESENT: +1 pedal pulses bilateral Vascular exam: PRESENT: normal capillary refill. ABSENT: pallor GI/Abdominal exam: PRESENT: normal bowel sounds, soft. ABSENT: distended, guarding, mass, organolmegaly, rebound, tenderness Rectal exam: PRESENT: deferred Gentrourinary exam: PRESENT: indwelling catheter. ABSENT: ecchymosis, erythema , lacerations, lesions, scrotal swelling, testicular tenderness, urethral discharge, other Extremities exam: ABSENT: pedal edema Musculoskeletal exam: PRESENT: normal inspection Neurological exam: PRESENT: alert, awake, oriented to person, oriented to place , oriented to time, oriented to situation, CN II-XII grossly intact. ABSENT: motor sensory deficit Psychiatric exam: PRESENT: agitated, anxious Skin exam: PRESENT: dry, intact, warm. ABSENT: cyanosis, rash Results Laboratory Results: 05/24/18 21:15 Urine Color YELLOW Urine Appearance CLOUDY Urine pH 6.0 Ur Specific [place] 1.005 Urine Protein NEGATIVE Urine Glucose (UA) NEGATIVE Urine Ketones TRACE H Urine Blood LARGE H Urine Nitrite NEGATIVE Ur Leukocyte Esterase SMALL H Urine WBC (Auto) 6 Urine RBC (Auto) 5 Impressions: Chest X-Ray 05/24/18 22:57 IMPRESSION: 1. Right IJ central venous catheter with tip in the high right atrium. 2. Slight interval progression of right upper lobe airspace opacity. Assessment & Plan - Diagnosis (1) SIRS with acute organ dysfunction due to infectious process Is this a current diagnosis for this admission?: Yes Plan: See admitting attending physician orders. (2) Lobar pneumonia, unspecified organism Is this a current diagnosis for this admission?: Yes Plan: See admitting attending physician orders. (3) Decompensated COPD with exacerbation (chronic obstructive pulmonary disease) Is this a current diagnosis for this admission?: Yes Plan: See admitting attending physician orders. (4) Chronic atrial fibrillation Is this a current diagnosis for this admission?: Yes Plan: See admitting attending physician orders. (5) HTN (hypertension) Qualifiers: Hypertension type: essential hypertension Qualified Code(s): I10 - Essential (primary) hypertension Is this a current diagnosis for this admission?: Yes Plan: See admitting attending physician orders. (6) HLD (hyperlipidemia) Qualifiers: Hyperlipidemia type: pure hypercholesterolemia Qualified Code(s): E78.00 - Pure hypercholesterolemia, unspecified Is this a current diagnosis for this admission?: Yes Plan: See admitting attending physician orders. (7) GERD (gastroesophageal reflux disease) Qualifiers: Esophagitis presence: esophagitis presence not specified Qualified Code(s) : K21.9 - Gastro-esophageal reflux disease without esophagitis Is this a current diagnosis for this admission?: Yes Plan: See admitting attending physician orders. (8) Anxiety Is this a current diagnosis for this admission?: Yes Plan: See admitting attending physician orders. (9) Depression Qualifiers: Depression Type: major depressive disorder Major depression recurrence: recurrent Active/Remission status: currently active Psychotic features: without psychotic features Is this a current diagnosis for this admission?: Yes Plan: See admitting attending physician orders. - Time Time Spent: Greater than 70 Minutes Smoking Cessation Education: 3 to 10 minutes - bedside counseling done during this bedside visit regarding smoking cessation. Medications reviewed and adjusted accordingly: Yes Anticipated discharge: Home with Homehealth Within: Other - Inpatient Certification Based on my medical assessment, after consideration of the patient's comorbidities, presenting symptoms, or acuity I expect that the services needed warrant INPATIENT care.: Yes I certify that my determination is in accordance with my understanding of Medicare's requirements for reasonable and necessary INPATIENT services [42 CFR 412.3e].: Yes Medical Necessity: Need Close Monitoring Due to Risk of Patient Decompensation, Need For IV Fluids, Need For Continuous Telemetry Monitoring, Need for Nebulizer Therapy and Monitoring of Response, Need for IV Antibiotics, Risk of Complication if Not Cared For in Hospital Post Hospital Care: D/C Pedorthist Documentation - Plan Summary Plan Summary: See admitting attending physician orders.
[2018-05-25] MEDS ORDERED: APIXABAN 5 MG TABLET PO ONE (20:00)
[2018-05-25] MEDS ORDERED: DILTIAZEM HCL/D5W 125 MG/125 ML RTUINJ IV ONE (21:13)
[2018-05-25] MEDS ORDERED: ROFLUMILAST 500 MCG TABLET PO ONE (21:15)
[2018-05-25] MEDS ORDERED: MULTIVITAMIN TABLET PO ONE (21:15)
[2018-05-25 21:36] LABS: ARTERIAL BLOOD H2CO3 0.89 mmol/L (1.05-1.35); ARTERIAL BLOOD HCO3 16.3 mmol/L (20-26); ARTERIAL BLOOD O2 SATURATION 95.1 % (94-98); ARTERIAL BLOOD PCO2 29.6 mmHg (35-45); ARTERIAL BLOOD PH 7.36 (7.35-7.45); ARTERIAL BLOOD PO2 76.4 mmHg (80-100); ARTERIAL BLOOD TOTAL CO2 17.3 mmol/L (21-25)
[2018-05-25 21:47] LABS: ARTERIAL BLOOD FIO2 35%
[2018-05-25 21:56] LABS: ANION GAP 13 (5-19); BLOOD UREA NITROGEN 9 mg/dL (7-20); CALCIUM 8.1 mg/dL (8.4-10.2); CARBON DIOXIDE 18 mmol/L (22-30); CHLORIDE 105 mmol/L (98-107); GLUCOSE 169 mg/dL (75-110); SODIUM 135.5 mmol/L (137-145)
[2018-05-25] MEDS ORDERED: CLONAZEPAM 0.25 MG SL SCH (22:00)
[2018-05-25] MEDS: GABAPENTIN 400 MG CAPSULE PO SCH (22:38)
[2018-05-25] MEDS: DILTIAZEM HCL/D5W 125 MG/125 ML RTUINJ IV PRN (22:40)
[2018-05-25] MEDS ORDERED: FUROSEMIDE INJ/PF 40 MG/4 ML SDV ONE (23:45)
[2018-05-25] MEDS ORDERED: FUROSEMIDE INJ/PF 40 MG/4 ML SDV IV ONE (23:45)
[2018-05-26] MEDS: GABAPENTIN 400 MG CAPSULE PO SCH ×3 (06:31→21:03)
[2018-05-26] MEDS: LANSOPRAZOLE 30 MG TAB.RAP.DR PO SCH (06:31)
[2018-05-26 07:09] LABS: ANION GAP 12 (5-19); BLOOD UREA NITROGEN 10 mg/dL (7-20); CALCIUM 7.6 mg/dL (8.4-10.2); CARBON DIOXIDE 20 mmol/L (22-30); CHLORIDE 106 mmol/L (98-107); GLUCOSE 132 mg/dL (75-110); POTASSIUM 3.6 mmol/L (3.6-5.0); SODIUM 138.1 mmol/L (137-145)
[2018-05-26 08:30] LABS: ARTERIAL BLOOD BASE EXCESS -5.4 mmol/L; ARTERIAL BLOOD H2CO3 0.91 mmol/L (1.05-1.35); ARTERIAL BLOOD HCO3 18.4 mmol/L (20-26); ARTERIAL BLOOD O2 SATURATION 95.5 % (94-98); ARTERIAL BLOOD PCO2 30.1 mmHg (35-45); ARTERIAL BLOOD PH 7.41 (7.35-7.45); ARTERIAL BLOOD PO2 76.1 mmHg (80-100); ARTERIAL BLOOD TOTAL CO2 19.4 mmol/L (21-25)
[2018-05-26 08:32] LABS: ARTERIAL BLOOD FIO2 35%
[2018-05-26] MEDS: LEVOFLOXACIN 500 MG/D5W RTU 500 MG/100 ML RTUPB IV SCH (09:13)
[2018-05-26] MEDS: CEFEPIME 1 GM/D5W RTU 1 GM/50 ML RTUPB IV SCH ×2 (09:13→21:22)
[2018-05-26] MEDS: MULTIVITAMIN TABLET PO SCH (09:37)
[2018-05-26] MEDS: ROFLUMILAST 500 MCG TABLET PO SCH (09:38)
[2018-05-26] MEDS: APIXABAN 5 MG TABLET PO SCH ×2 (09:41→18:40)
[2018-05-26] MEDS: ACETAZOLAMIDE 250 MG TABLET PO SCH (09:49)
[2018-05-26] MEDS: VALSARTAN 160 MG TABLET PO SCH (09:49)
[2018-05-26] MEDS ORDERED: (PENDING PHARMACY ID) (Tiotropium Bromide [Spiriva Respimat] 1 PUFF) IH SCH (10:00)
[2018-05-26] MEDS ORDERED: ROFLUMILAST 250 MCG PO SCH (10:00)
[2018-05-26] MEDS: IPRATROPIUM/ALBUTEROL 0.5-2.5 MG/3 ML AMPUL NEB PRN ×3 (10:21→23:36)
--- NOTE | 2018-05-26 10:44 | RADIOLOGY REPORT (SQ) ---
EXAM DESCRIPTION: CHEST SINGLE VIEW COMPLETED DATE/TIME: 05/26/2018 10:31 am REASON FOR STUDY: Pneumonia COMPARISON: 05/24/2018 EXAM PARAMETERS: NUMBER OF VIEWS: One view. TECHNIQUE: Single frontal radiographic view of the chest acquired. RADIATION DOSE: NA LIMITATIONS: None. FINDINGS: LUNGS AND PLEURA: Progression of diffuse parenchymal opacities in both lungs. No effusion s. MEDIASTINUM AND HILAR STRUCTURES: No masses. Contour normal. HEART AND VASCULAR STRUCTURES: Heart normal in size. Normal vasculature. BONES: No acute findings. HARDWARE: Central line tip right atrium. OTHER: No other significant finding. IMPRESSION: Diffuse parenchymal opacities in both lungs progressed since the previous study. TECHNICAL DOCUMENTATION: JOB ID: [id number] [employer]- All Rights Reserved Reading location - IP/workstation name: SARINA
[2018-05-26] MEDS ORDERED: LORAZEPAM INJ 2 MG/1 ML VIAL ONE (10:46)
[2018-05-26] MEDS ORDERED: LORAZEPAM INJ 2 MG/1 ML VIAL IV ONE (11:30)
[2018-05-26 12:38] LABS: HEMATOCRIT 26.5 % (36.0-47.0); HEMOGLOBIN 8.2 g/dL (12.0-15.5); MEAN CORPUSCULAR HEMOGLOBIN 22.2 pg (27.0-33.4); MEAN CORPUSCULAR HGB CONC 31.1 g/dL (32.0-36.0); MEAN CORPUSCULAR VOLUME 72 fl (80-97); PLATELET COUNT 253 10^3/uL (150-450); RED BLOOD COUNT 3.71 10^6/uL (3.72-5.28); RED CELL DISTRIBUTION WIDTH 16.7 % (11.5-14.0)
[2018-05-26 12:41] LABS: WHITE BLOOD COUNT 36.7 10^3/uL (4.0-10.5)
[2018-05-26 12:55] LABS: ABSOLUTE LYMPHOCYTES# (MANUAL) 1.8 10^3/uL (0.5-4.7); ABSOLUTE MONOCYTES # (MANUAL) 1.5 10^3/uL (0.1-1.4); ABSOLUTE NEUTROPHILS# (MANUAL) 33.4 10^3/uL (1.7-8.2); BASOPHILS % (MANUAL) 0 % (0-2); EOSINOPHILS % (MANUAL) 0 % (0-6); LYMPHOCYTES % (MANUAL) 5 % (13-45); MONOCYTES % (MANUAL) 4 % (3-13); SEGMENTED NEUTROPHILS % (MAN) 91 % (42-78); TOTAL CELLS COUNTED 100
[2018-05-26 12:56] LABS: TOXIC GRANULATION 1+
[2018-05-26 12:57] LABS: ANISOCYTOSIS 1+; HYPOCHROMASIA 2+; OVALOCYTES SLIGHT; PLATELET COMMENT ADEQUATE; POIKILOCYTOSIS 1+; TEAR DROP CELLS SLIGHT
[2018-05-26 13:22] LABS: ANION GAP 11 (5-19)
[2018-05-26 13:23] LABS: ALANINE AMINOTRANSFERASE 20 U/L (9-52); ALBUMIN 2.7 g/dL (3.5-5.0); ALKALINE PHOSPHATASE 86 U/L (38-126); ASPARTATE AMINO TRANSFERASE 18 U/L (14-36); BILIRUBIN,DIRECT 0.6 mg/dL (0.0-0.4); BILIRUBIN,TOTAL 0.8 mg/dL (0.2-1.3); BLOOD UREA NITROGEN 12 mg/dL (7-20); CALCIUM 7.7 mg/dL (8.4-10.2); CARBON DIOXIDE 20 mmol/L (22-30); CHLORIDE 106 mmol/L (98-107); GLUCOSE 135 mg/dL (75-110); POTASSIUM 3.7 mmol/L (3.6-5.0); SODIUM 137.2 mmol/L (137-145); TOTAL PROTEIN 5.4 g/dL (6.3-8.2)
--- NOTE | 2018-05-26 14:22 | PDOC PROGRESS REPORT ---
Subjective Progress Note for:: 05/26/18 Subjective:: She was admitted yesterday for sepsis, she was seen today in the unit, she is very anxious, presently on noninvasive ventilation. Chest x-ray demonstrated progression of diffuse parenchymal opacities in both lung cherry no effusion the blood culture positive for gram-positive cocci in clusters Reason For Visit: ADMIT TO ICU FOR PNA AND SEPSIS Physical Exam Vital Signs: Temp Pulse Resp BP Pulse Ox 100.0 F 101 H 41 H 132/53 H 98 05/26/18 13:43 05/26/18 11:58 05/26/18 12:41 05/26/18 12:41 05/26/18 12:41 Intake & Output 05/25/18 05/26/18 05/27/18 06:59 06:59 06:59 Intake Total 898 2378 Output Total 1300 2245 310 Balance -402 133 -310 Weight 68.7 kg 68.2 kg General appearance: PRESENT: severe distress Eye exam: PRESENT: PERRLA Respiratory exam: PRESENT: tachypnea, wheezes Cardiovascular exam: PRESENT: +S1, +S2 GI/Abdominal exam: PRESENT: soft Neurological exam: PRESENT: alert Results Laboratory Results: 05/26/18 11:00 05/26/18 11:00 05/25/18 05/25/18 05/26/18 21:13 21:26 06:40 WBC RBC Hgb Hct MCV MCH MCHC RDW Plt Count Seg Neutrophils % Lymphocytes % Monocytes % Eosinophils % Basophils % Absolute Neutrophils Absolute Lymphocytes Absolute Monocytes Absolute Eosinophils Absolute Basophils Carbonic Acid 0.89 L HCO3/H2CO3 Ratio 18:1 ABG pH 7.36 ABG pCO2 29.6 L ABG pO2 76.4 L ABG HCO3 16.3 L ABG O2 Saturation 95.1 ABG Base Excess -8.0 FiO2 35% Sodium 135.5 L 138.1 Potassium 4.0 D 3.6 Chloride 105 106 Carbon Dioxide 18 L 20 L Anion Gap 13 12 BUN 9 10 Creatinine 0.55 0.62 Est GFR ( Amer) > 60 > 60 Est GFR (Non-Af Amer) > 60 > 60 Glucose 169 H 132 H Calcium 8.1 L 7.6 L Magnesium 2.0 Total Bilirubin AST ALT Alkaline Phosphatase Total Protein Albumin 05/26/18 05/26/18 05/26/18 08:10 11:00 11:00 WBC 36.7 H* RBC 3.71 L Hgb 8.2 L Hct 26.5 L MCV 72 L MCH 22.2 L MCHC 31.1 L RDW 16.7 H Plt Count 253 Seg Neutrophils % Not Reportable Lymphocytes % Not Reportable Monocytes % Not Reportable Eosinophils % Not Reportable Basophils % Not Reportable Absolute Neutrophils Not Reportable Absolute Lymphocytes Not Reportable Absolute Monocytes Not Reportable Absolute Eosinophils Not Reportable Absolute Basophils Not Reportable Carbonic Acid 0.91 L HCO3/H2CO3 Ratio 20:1 ABG pH 7.41 ABG pCO2 30.1 L ABG pO2 76.1 L ABG HCO3 18.4 L ABG O2 Saturation 95.5 ABG Base Excess -5.4 FiO2 35% Sodium 137.2 Potassium 3.7 Chloride 106 Carbon Dioxide 20 L Anion Gap 11 BUN 12 Creatinine 0.67 Est GFR ( Amer) > 60 Est GFR (Non-Af Amer) > 60 Glucose 135 H Calcium 7.7 L Magnesium Total Bilirubin 0.8 AST 18 ALT 20 Alkaline Phosphatase 86 Total Protein 5.4 L Albumin 2.7 L Impressions: Chest X-Ray 05/26/18 00:00 IMPRESSION: Diffuse parenchymal opacities in both lungs progressed since the previous study. Assessment & Plan - Diagnosis (1) Septicemia Is this a current diagnosis for this admission?: Yes Plan: Start IV vancomycin (2) Pneumonia Is this a current diagnosis for this admission?: Yes (3) Acute respiratory failure with hypoxemia Is this a current diagnosis for this admission?: Yes Plan: Continue noninvasive positive pressure ventilation, she may require mechanical ventilation because of the progression of the pneumonic process (4) COPD (chronic obstructive pulmonary disease) Qualifiers: COPD type: unspecified COPD Qualified Code(s): J44.9 - Chronic obstructive pulmonary disease, unspecified Is this a current diagnosis for this admission?: Yes (5) Atrial fibrillation with rapid ventricular response Is this a current diagnosis for this admission?: Yes Plan: Continue Cardizem infusion
[2018-05-26 16:24] LABS: ARTERIAL BLOOD BASE EXCESS -4.8 mmol/L; ARTERIAL BLOOD H2CO3 0.89 mmol/L (1.05-1.35); ARTERIAL BLOOD HCO3 18.8 mmol/L (20-26); ARTERIAL BLOOD O2 SATURATION 95.9 % (94-98); ARTERIAL BLOOD PCO2 29.5 mmHg (35-45); ARTERIAL BLOOD PH 7.42 (7.35-7.45); ARTERIAL BLOOD PO2 77.6 mmHg (80-100); ARTERIAL BLOOD TOTAL CO2 19.7 mmol/L (21-25)
[2018-05-26 16:26] LABS: ARTERIAL BLOOD FIO2 35%
[2018-05-26] MEDS: VANCOMYCIN HCL 750 MG in DEXTROSE 5%-WATER 250 ML IV SCH (18:39)
[2018-05-26] MEDS ORDERED: NYSTATIN TOPICAL POWDER 15 GM TP ONE (20:30)
[2018-05-26] MEDS: DILTIAZEM HCL/D5W 125 MG/125 ML RTUINJ IV PRN (21:22)
[2018-05-27] MEDS: IPRATROPIUM/ALBUTEROL 0.5-2.5 MG/3 ML AMPUL NEB PRN ×4 (04:20→20:20)
[2018-05-27 05:03] LABS: HEMATOCRIT 26.3 % (36.0-47.0); HEMOGLOBIN 8.1 g/dL (12.0-15.5); MEAN CORPUSCULAR HEMOGLOBIN 21.9 pg (27.0-33.4); MEAN CORPUSCULAR HGB CONC 30.7 g/dL (32.0-36.0); MEAN CORPUSCULAR VOLUME 72 fl (80-97); PLATELET COUNT 255 10^3/uL (150-450); RED BLOOD COUNT 3.68 10^6/uL (3.72-5.28); RED CELL DISTRIBUTION WIDTH 16.5 % (11.5-14.0)
[2018-05-27 05:10] LABS: ALANINE AMINOTRANSFERASE 17 U/L (9-52); ALBUMIN 2.7 g/dL (3.5-5.0); ALKALINE PHOSPHATASE 92 U/L (38-126); ANION GAP 15 (5-19); ASPARTATE AMINO TRANSFERASE 31 U/L (14-36); BILIRUBIN,DIRECT 0.6 mg/dL (0.0-0.4); BILIRUBIN,TOTAL 0.7 mg/dL (0.2-1.3); BLOOD UREA NITROGEN 13 mg/dL (7-20); CALCIUM 8.2 mg/dL (8.4-10.2); CARBON DIOXIDE 19 mmol/L (22-30); CHLORIDE 109 mmol/L (98-107); GLUCOSE 145 mg/dL (75-110); POTASSIUM 3.7 mmol/L (3.6-5.0); SODIUM 142.7 mmol/L (137-145); TOTAL PROTEIN 5.6 g/dL (6.3-8.2)
[2018-05-27] MEDS: GABAPENTIN 400 MG CAPSULE PO SCH ×2 (05:15→14:14)
[2018-05-27] MEDS: LANSOPRAZOLE 30 MG TAB.RAP.DR PO SCH (05:15)
[2018-05-27 05:17] LABS: WHITE BLOOD COUNT 31.2 10^3/uL (4.0-10.5)
[2018-05-27] MEDS: VANCOMYCIN HCL 750 MG in DEXTROSE 5%-WATER 250 ML IV SCH ×2 (05:17→17:54)
[2018-05-27 06:03] LABS: ABSOLUTE LYMPHOCYTES# (MANUAL) 0.6 10^3/uL (0.5-4.7); ABSOLUTE MONOCYTES # (MANUAL) 1.6 10^3/uL (0.1-1.4); BASOPHILS % (MANUAL) 0 % (0-2); EOSINOPHILS % (MANUAL) 0 % (0-6); LYMPHOCYTES % (MANUAL) 2 % (13-45); MONOCYTES % (MANUAL) 5 % (3-13); SEGMENTED NEUTROPHILS % (MAN) 93 % (42-78); TOTAL CELLS COUNTED 100
[2018-05-27 06:05] LABS: ANISOCYTOSIS 1+; HYPOCHROMASIA 2+; OVALOCYTES 1+; PLATELET COMMENT ADEQUATE
[2018-05-27] MEDS: CEFEPIME 1 GM/D5W RTU 1 GM/50 ML RTUPB IV SCH (09:43)
[2018-05-27] MEDS: LEVOFLOXACIN 500 MG/D5W RTU 500 MG/100 ML RTUPB IV SCH (09:43)
[2018-05-27] MEDS: NYSTATIN TOPICAL POWDER 15 GM TP SCH ×2 (09:43→18:02)
[2018-05-27 10:26] LABS: ARTERIAL BLOOD BASE EXCESS -4.7 mmol/L; ARTERIAL BLOOD H2CO3 0.92 mmol/L (1.05-1.35); ARTERIAL BLOOD HCO3 19.2 mmol/L (20-26); ARTERIAL BLOOD O2 SATURATION 96.5 % (94-98); ARTERIAL BLOOD PCO2 30.5 mmHg (35-45); ARTERIAL BLOOD PH 7.42 (7.35-7.45); ARTERIAL BLOOD PO2 82.8 mmHg (80-100); ARTERIAL BLOOD TOTAL CO2 20.1 mmol/L (21-25)
[2018-05-27 10:27] LABS: ARTERIAL BLOOD FIO2 40%
--- NOTE | 2018-05-27 10:38 | RADIOLOGY REPORT (SQ) ---
EXAM DESCRIPTION: CHEST SINGLE VIEW COMPLETED DATE/TIME: 05/27/2018 10:30 am REASON FOR STUDY: bilateral pneumonia COMPARISON: 05/26/2018 EXAM PARAMETERS: NUMBER OF VIEWS: One view. TECHNIQUE: Single frontal radiographic view of the chest acquired. RADIATION DOSE: NA LIMITATIONS: None. FINDINGS: LUNGS AND PLEURA: Extensive parenchymal opacities in both lungs. Further progression in t he left lung. Stable appearance of the right lung. MEDIASTINUM AND HILAR STRUCTURES: No masses. Contour normal. HEART AND VASCULAR STRUCTURES: Heart normal in size. Normal vasculature. BONES: No acute findings. HARDWARE: Venous access catheter unchanged. OTHER: No other significant finding. IMPRESSION: Further progression of the parenchymal infiltrates particularly on the left. Generalize pneumonia. TECHNICAL DOCUMENTATION: JOB ID: [id number] [employer]- All Rights Reserved Reading location - IP/workstation name: [email or web address]
[2018-05-27] MEDS ORDERED: PHARMACY COMMUNICATION ORDER MC NR (11:00)
[2018-05-27] MEDS ORDERED: ACETYLCYSTEINE 10% NEB 400 MG/4 ML VIAL NEB ONE (11:00)
[2018-05-27] MEDS: VALSARTAN 160 MG TABLET PO SCH (11:29)
[2018-05-27] MEDS: APIXABAN 5 MG TABLET PO SCH (11:29)
[2018-05-27] MEDS: ACETAZOLAMIDE 250 MG TABLET PO SCH (11:29)
[2018-05-27] MEDS: MULTIVITAMIN TABLET PO SCH (11:29)
[2018-05-27] MEDS: ROFLUMILAST 500 MCG TABLET PO SCH (11:29)
[2018-05-27] MEDS ORDERED: ACETYLCYSTEINE 20% SOLN 800 MG/4 ML VIAL.NEB NEB ONE (13:00)
[2018-05-27] MEDS: DILTIAZEM HCL/D5W 125 MG/125 ML RTUINJ IV PRN (13:57)
--- NOTE | 2018-05-27 13:59 | PDOC PROGRESS REPORT ---
Subjective Progress Note for:: 05/27/18 Subjective:: Patient was seen by the bedside in ICU family by the bedside in the room, she continues to require positive pressure ventilation with BiPAP, she is maintaining adequate oxygenation on normal pH on present BiPAP setting. The chest x-ray showed diffuse progressive bilateral pneumonia the PaO2/FiO2 ratio is 205 suggesting severe hypoxemia, patient has not been able to eat since admission on Monday which is 3 days ago. The sputum culture grew MRSA, the blood culture is growing gram-positive cocci in clusters suggesting MRSA, patient already on vancomycin it is probably reasonable to discontinue all antibiotic and just keep patient on vancomycin. I suggested that patient probably need to have mechanical ventilation for airway protection because of anxiety and partly because she is not able to eat on present noninvasive ventilation and also because she may ultimately fatigue out that may require mechanical ventilation emergently. Family and the patient refused mechanical ventilation partly because she has had 2 episodes when she was intubated and that was not the best experience for the patient, she does not want to go to that again she rather preferred to be on noninvasive ventilation with BiPAP. Reason For Visit: ADMIT TO ICU FOR PNA AND SEPSIS Physical Exam Vital Signs: Temp Pulse Resp BP Pulse Ox 99.9 F 96 42 H 140/69 H 96 05/27/18 12:00 05/27/18 12:00 05/27/18 12:42 05/27/18 12:00 05/27/18 12:42 Intake & Output 05/26/18 05/27/18 05/28/18 06:59 06:59 06:59 Intake Total 2378 1340 0 Output Total 2245 980 350 Balance 133 360 -350 Weight 68.2 kg 69.4 kg General appearance: PRESENT: other - She is alert and comfortable on BiPAP Respiratory exam: PRESENT: wheezes, other - She had diffuse bilateral coarse wheez in both lung cherry Cardiovascular exam: PRESENT: +S1, +S2 GI/Abdominal exam: PRESENT: soft Neurological exam: PRESENT: alert Results Laboratory Results: 05/27/18 04:35 05/27/18 04:35 05/26/18 05/26/18 05/27/18 15:20 16:10 04:35 WBC 31.2 H* RBC 3.68 L Hgb 8.1 L Hct 26.3 L MCV 72 L MCH 21.9 L MCHC 30.7 L RDW 16.5 H Plt Count 255 Seg Neutrophils % Not Reportable Lymphocytes % Not Reportable Monocytes % Not Reportable Eosinophils % Not Reportable Basophils % Not Reportable Absolute Neutrophils Not Reportable Absolute Lymphocytes Not Reportable Absolute Monocytes Not Reportable Absolute Eosinophils Not Reportable Absolute Basophils Not Reportable Carbonic Acid 0.89 L HCO3/H2CO3 Ratio 21:1 ABG pH 7.42 ABG pCO2 29.5 L ABG pO2 77.6 L ABG HCO3 18.8 L ABG O2 Saturation 95.9 ABG Base Excess -4.8 FiO2 35% Sodium Potassium Chloride Carbon Dioxide Anion Gap BUN Creatinine Est GFR ( Amer) Est GFR (Non-Af Amer) Glucose Lactic Acid 0.8 Calcium Total Bilirubin AST ALT Alkaline Phosphatase Total Protein Albumin 05/27/18 05/27/18 04:35 10:05 WBC RBC Hgb Hct MCV MCH MCHC RDW Plt Count Seg Neutrophils % Lymphocytes % Monocytes % Eosinophils % Basophils % Absolute Neutrophils Absolute Lymphocytes Absolute Monocytes Absolute Eosinophils Absolute Basophils Carbonic Acid 0.92 L HCO3/H2CO3 Ratio 20:1 ABG pH 7.42 ABG pCO2 30.5 L ABG pO2 82.8 ABG HCO3 19.2 L ABG O2 Saturation 96.5 ABG Base Excess -4.7 FiO2 40% Sodium 142.7 Potassium 3.7 Chloride 109 H Carbon Dioxide 19 L Anion Gap 15 BUN 13 Creatinine 0.61 Est GFR ( Amer) > 60 Est GFR (Non-Af Amer) > 60 Glucose 145 H Lactic Acid Calcium 8.2 L Total Bilirubin 0.7 AST 31 ALT 17 Alkaline Phosphatase 92 Total Protein 5.6 L Albumin 2.7 L 05/25/18 12:00 Sputum Gram Stain - Final 05/25/18 12:00 Sputum Sputum Culture - Final Mrsa (Meth Resis Staph Aureus) Reduced Normal Phoebe Impressions: Chest X-Ray 05/27/18 00:00 IMPRESSION: Further progression of the parenchymal infiltrates particularly on the left. Generalize pneumonia. Assessment & Plan - Diagnosis (1) Septicemia Is this a current diagnosis for this admission?: Yes Plan: She has MRSA septicemia (2) Pneumonia Qualifiers: Pneumonia type: due to methicillin-resistant Staphylococcus aureus (MRSA) Laterality: bilateral Lung location: unspecified part of lung Qualified Code (s): J15.212 - Pneumonia due to Methicillin resistant Staphylococcus aureus Is this a current diagnosis for this admission?: Yes (3) Acute respiratory failure with hypoxemia Is this a current diagnosis for this admission?: Yes Plan: She will continue present noninvasive positive pressure ventilation with BiPAP on present settings (4) COPD (chronic obstructive pulmonary disease) Qualifiers: COPD type: unspecified COPD Qualified Code(s): J44.9 - Chronic obstructive pulmonary disease, unspecified Is this a current diagnosis for this admission?: Yes Plan: Patient is a smoker presently with acute COPD exacerbation, she ordinarily needs to be on Solu-Medrol but she is very septic with severe leukocytosis WBC is over 30,000, Solu-Medrol may be detrimental in this setting, she will continue as needed bronchodilators with DuoNeb every 4 hours (5) Atrial fibrillation with rapid ventricular response Is this a current diagnosis for this admission?: Yes (6) MRSA pneumonia Qualifiers: Laterality: bilateral Is this a current diagnosis for this admission?: Yes Plan: She will continue IV vancomycin, discontinue cefepime and Levaquin - Plan Summary Plan Summary: Past feeding tube. Nutrition with oxepa
[2018-05-27] MEDS ORDERED: ACETYLCYSTEINE 10% NEB 400 MG/4 ML VIAL NEB SCH (14:00)
[2018-05-27] MEDS ORDERED: ACETAMINOPHEN 325 MG TABLET NG PRN (15:30)
[2018-05-27] MEDS: APIXABAN 5 MG TABLET NG SCH (17:51)
[2018-05-27] MEDS: ACETYLCYSTEINE 20% SOLN 800 MG/4 ML VIAL.NEB NEB SCH (20:19)
[2018-05-27] MEDS: GABAPENTIN 400 MG CAPSULE NG SCH (23:01)
[2018-05-28] MEDS: IPRATROPIUM/ALBUTEROL 0.5-2.5 MG/3 ML AMPUL NEB PRN ×4 (00:15→19:53)
[2018-05-28] MEDS: NORMAL SALINE 1000 ML 1,000 ML IV PRN (01:29)
[2018-05-28] MEDS: DILTIAZEM HCL/D5W 125 MG/125 ML RTUINJ IV PRN (01:29)
[2018-05-28] MEDS: GABAPENTIN 400 MG CAPSULE NG SCH ×3 (05:34→21:13)
[2018-05-28] MEDS: LANSOPRAZOLE 30 MG TAB.RAP.DR NG SCH (05:34)
[2018-05-28] MEDS: VANCOMYCIN HCL 750 MG in DEXTROSE 5%-WATER 250 ML IV SCH (05:50)
[2018-05-28 06:14] LABS: HEMATOCRIT 25.3 % (36.0-47.0); MEAN CORPUSCULAR HEMOGLOBIN 22.2 pg (27.0-33.4); MEAN CORPUSCULAR VOLUME 72 fl (80-97); PLATELET COUNT 227 10^3/uL (150-450); RED BLOOD COUNT 3.52 10^6/uL (3.72-5.28); RED CELL DISTRIBUTION WIDTH 16.6 % (11.5-14.0)
[2018-05-28 06:17] LABS: HEMOGLOBIN 7.8 g/dL (12.0-15.5)
[2018-05-28 06:28] LABS: ANION GAP 13 (5-19); BLOOD UREA NITROGEN 10 mg/dL (7-20); CALCIUM 8.3 mg/dL (8.4-10.2); CARBON DIOXIDE 22 mmol/L (22-30); CHLORIDE 111 mmol/L (98-107); GLUCOSE 166 mg/dL (75-110); POTASSIUM 3.3 mmol/L (3.6-5.0); SODIUM 145.5 mmol/L (137-145)
[2018-05-28 06:30] LABS: VANCOMYCIN,TROUGH 6.5 ug/mL (5.0-20.0)
[2018-05-28 06:35] LABS: ABSOLUTE LYMPHOCYTES# (MANUAL) 1.1 10^3/uL (0.5-4.7); ABSOLUTE MONOCYTES # (MANUAL) 0.4 10^3/uL (0.1-1.4); ABSOLUTE NEUTROPHILS# (MANUAL) 20.5 10^3/uL (1.7-8.2); BASOPHILS % (MANUAL) 0 % (0-2); EOSINOPHILS % (MANUAL) 0 % (0-6); LYMPHOCYTES % (MANUAL) 5 % (13-45); MONOCYTES % (MANUAL) 2 % (3-13); NUCLEATED RED BLOOD CELLS 1 /100 WBC (0); SEGMENTED NEUTROPHILS % (MAN) 93 % (42-78); TOTAL CELLS COUNTED 100
[2018-05-28 06:37] LABS: ANISOCYTOSIS 2+; OVALOCYTES SLIGHT; PLATELET COMMENT ADEQUATE; POIKILOCYTOSIS SLIGHT
[2018-05-28] MEDS ORDERED: POTASSI CL 20 MEQ/50 ML RIDER 20 MEQ/50 ML RTUPB IV ONE (06:44)
[2018-05-28] MEDS: POTASSIUM CHLORIDE 20 MEQ/50 ML RTU IV SCH ×4 (06:46→21:15)
--- NOTE | 2018-05-28 07:55 | RADIOLOGY REPORT (SQ) ---
EXAM DESCRIPTION: CHEST SINGLE VIEW COMPLETED DATE/TIME: 05/28/2018 7:07 am REASON FOR STUDY: bilateral pneumonia COMPARISON: Chest films 03/03/2016, 11/15/2017, 05/16/2018, 05/27/2018 EXAM PARAMETERS: NUMBER OF VIEWS: One view. TECHNIQUE: Single frontal radiographic view of the chest acquired. RADIATION DOSE: NA LIMITATIONS: None. FINDINGS: LUNGS AND PLEURA: Persistent dense consolidation in the right upper lobe, persistent patch y consolidation elsewhere throughout both lungs, unchanged compared to 05/26/2018. Findings likely re present multifocal pneumonia. Pulmonary edema or ARDS could have this appearance. No pleural effusion. No pneumothorax. MEDIASTINUM AND HILAR STRUCTURES: No masses. Contour normal. HEART AND VASCULAR STRUCTURES: Heart normal in size. Normal vasculature. BONES: Multiple old healed left posterior rib fractures HARDWARE: Right jugular central line tip in the right atrium OTHER: No other significant finding. IMPRESSION: No change in dense lung parenchymal consolidation bilaterally, most confluent in the rig ht upper lobe TECHNICAL DOCUMENTATION: JOB ID: [id number] [employer]- All Rights Reserved Reading location - IP/workstation name: [facility]
[2018-05-28] MEDS: ACETYLCYSTEINE 20% SOLN 800 MG/4 ML VIAL.NEB NEB SCH (08:30)
[2018-05-28 08:41] LABS: ARTERIAL BLOOD BASE EXCESS -2.2 mmol/L; ARTERIAL BLOOD O2 SATURATION 95.5 % (94-98); ARTERIAL BLOOD PCO2 29.9 mmHg (35-45); ARTERIAL BLOOD PH 7.46 (7.35-7.45); ARTERIAL BLOOD PO2 71.8 mmHg (80-100); ARTERIAL BLOOD TOTAL CO2 21.9 mmol/L (21-25)
[2018-05-28 08:42] LABS: ARTERIAL BLOOD FIO2 40%
[2018-05-28] MEDS ORDERED: PROPOFOL 1,000 MG/100 ML INFUS..BTL IV ONE (08:50)
[2018-05-28] MEDS ORDERED: MIDAZOLAM HCL 50 MG/100 ML RTUINJ ONE (08:50)
[2018-05-28] MEDS ORDERED: MIDAZOLAM 2 MG/2 ML INJ IV ONE (09:00)
[2018-05-28] MEDS ORDERED: PHARMACY COMMUNICATION ORDER MC NR ×2 (09:15→09:30)
[2018-05-28] MEDS ORDERED: PROPOFOL INJ 200 MG/20 ML VIAL IV SCH (09:30)
[2018-05-28] MEDS ORDERED: DEXTROSE 5%-WATER 250 ML with NOREPINEPHRINE BITARTRATE 4 MG IV PRN ×2 (09:32)
[2018-05-28] MEDS ORDERED: NOREPINEPHRINE BITARTRATE INJ/PF 4 MG/4 ML SDV IV ONE (09:33)
[2018-05-28] MEDS ORDERED: PHENYLEPHRINE HCL INJ/PF 10 MG/1 ML SDV ONE (09:34)
--- NOTE | 2018-05-28 09:59 | RADIOLOGY REPORT (SQ) ---
EXAM DESCRIPTION: CHEST SINGLE VIEW COMPLETED DATE/TIME: 05/28/2018 9:51 am REASON FOR STUDY: ETT placement COMPARISON: Chest films 02/07/2017, 05/24/2018, 05/27/2018, 05/28/2018 EXAM PARAMETERS: NUMBER OF VIEWS: One view. TECHNIQUE: Single frontal radiographic view of the chest acquired. RADIATION DOSE: NA LIMITATIONS: None. FINDINGS: LUNGS AND PLEURA: No change in dense consolidation in the right upper lobe left mid and lo wer lung, right lung base compared to previous exam 05/28/2018. No pneumothorax. No gross pleural effusion. MEDIASTINUM AND HILAR STRUCTURES: No masses. Contour normal. HEART AND VASCULAR STRUCTURES: Heart normal in size. Normal vasculature. BONES: No acute findings. HARDWARE: Endotracheal tube tip 3 cm above the jenny. Right jugular central line tip right atrium. No nasogastric tube OTHER: No other significant finding. IMPRESSION: Endotracheal tube tip 3 cm above the jenny. Right jugular central line tip in the righ t atrium. No change in dense consolidation in the right upper lobe, more patchy consolidation elsewhere in the lungs. TECHNICAL DOCUMENTATION: JOB ID: [id number] [employer]- All Rights Reserved Reading location - IP/workstation name: [facility]-RR
[2018-05-28] MEDS ORDERED: ROFLUMILAST 500 MCG TABLET NG SCH (10:00)
[2018-05-28] MEDS ORDERED: ACETAZOLAMIDE 250 MG TABLET NG SCH (10:00)
--- NOTE | 2018-05-28 10:02 | RADIOLOGY REPORT (SQ) ---
EXAM DESCRIPTION: KUB/ABDOMEN (SINGLE VIEW) COMPLETED DATE/TIME: 05/28/2018 9:50 am REASON FOR STUDY: Check Placement of NG Tube COMPARISON: AP chest 05/28/2018, 05/27/2018, 05/26/2015 NUMBER OF VIEWS: One view. TECHNIQUE: Supine radiographic image of the abdomen acquired for nasogastric tube placement. LIMITATIONS: Pelvis not included in the field of view FINDINGS: A nasogastric tube is present with the tip and side port in the stomach. Endotracheal tub e tip 3 cm above the jenny. Right jugular central line tip right atrium. Grossly nonobstructive bowel gas pattern. Respiratory motion artifact over the lung bases. IMPRESSION: Nasogastric tube tip is present with the tip and side port in the stomach. TECHNICAL DOCUMENTATION: JOB ID: [id number] [employer]- All Rights Reserved Reading location - IP/workstation name: [facility]
[2018-05-28] MEDS ORDERED: MORPHINE SULFATE 10 MG/ML INJ ONE (10:06)
--- NOTE | 2018-05-28 10:41 | OPERATIVE REPORT E ---
Operative Report NAME: SOHA DORSEY : 1945 AGE: 73Y DATE OF SURGERY: 05/28/2018 ROOM: 601 HISTORY: The patient is a 73-year-old female, who came in with severe respiratory distress, bilateral pneumonia, who went into acute respiratory failure today. The patient's respiratory rate was 40-45, tachypneic, hypoxic, decreased breath sounds both sides despite non-invasive mechanical ventilation in the last 48 hours. The patient is requiring endotracheal intubation. Consulted with the patient's son, Mr. Castro, who agrees for endotracheal intubation and invasive mechanical ventilation. Chest x -ray yesterday has been getting worse, showing pulmonary infiltrates bilaterally and more diffuse. The son talked to his mother, who agreed for endotracheal intubation and mechanical ventilation until she gets better. Indication: acute respiratory failure, requiring invasive mechanical ventilation. Pneumonia, bilateral. - worsening. Procedure: Endotracheal intubation PROCEDURE Note: The patient was given Versed 1 mg IV, followed by 2 mg IV and 4 mg IV for a total dose of 7 mg IV. Endotracheal intubation was performed without difficulty by myself in a single attempt. Back up record label internship on stand by and was present. The patient has a difficult airway and vocal cords appeared anteriorly placed. Breath sounds confirmed in both lungs following endotracheal intubation. ETCo2 monitor showed color change. The patient was placed on invasive mechanical ventilation using SIMV rate of 18 with tidal volume of 400, pressure support of 10, PEEP of 5, and FiO2 of 100%, and titrate FiO2 keeping saturation 90% to 91%. DICTATING PHYSICIAN: ML MARQUIS MD,JACQUIE.MPH [id number] PHY#: [id number] ID: [id number] JOB#: [id number] ACCT: [id number] cc:ML MARQUIS M.D. > RACHEL
[2018-05-28 11:17] LABS: ARTERIAL BLOOD BASE EXCESS -2.3 mmol/L; ARTERIAL BLOOD H2CO3 1.36 mmol/L (1.05-1.35); ARTERIAL BLOOD HCO3 23.5 mmol/L (20-26); ARTERIAL BLOOD O2 SATURATION 92.3 % (94-98); ARTERIAL BLOOD PCO2 45.3 mmHg (35-45); ARTERIAL BLOOD PH 7.33 (7.35-7.45); ARTERIAL BLOOD PO2 67.9 mmHg (80-100); ARTERIAL BLOOD TOTAL CO2 24.8 mmol/L (21-25)
[2018-05-28 11:18] LABS: ARTERIAL BLOOD FIO2 70%
[2018-05-28] MEDS: APIXABAN 5 MG TABLET NG SCH ×2 (11:21→17:15)
[2018-05-28] MEDS: MULTIVITAMIN ORAL LIQUID 60 ML NG SCH (11:22)
[2018-05-28] MEDS: NYSTATIN TOPICAL POWDER 15 GM TP SCH ×2 (11:22→17:15)
[2018-05-28] MEDS: PIPERACILLIN SODIUM/TAZOBACTAM 3.375 GM in NORMAL SALINE 100 ML IV SCH ×3 (11:28→21:12)
[2018-05-28] MEDS: VALSARTAN 160 MG TABLET NG SCH (11:52)
[2018-05-28] MEDS: PROPOFOL 1,000 MG/100 ML INFUS..BTL IV PRN ×2 (11:55→21:15)
[2018-05-28] MEDS: DEXTROSE 5%-WATER 250 ML with PHENYLEPHRINE HCL 40 MG IV PRN ×6 (11:58→23:49)
[2018-05-28] MEDS: MIDAZOLAM HCL 50 MG/100 ML RTUINJ IV PRN ×2 (13:06→21:14)
[2018-05-28] MEDS: VANCOMYCIN HCL 1,000 MG in DEXTROSE 5%-WATER 250 ML IV SCH ×2 (13:50→21:14)
[2018-05-28 17:24] LABS: ANION GAP 7 (5-19); BLOOD UREA NITROGEN 10 mg/dL (7-20); CALCIUM 7.7 mg/dL (8.4-10.2); CARBON DIOXIDE 25 mmol/L (22-30); CHLORIDE 111 mmol/L (98-107); GLUCOSE 147 mg/dL (75-110); POTASSIUM 3.1 mmol/L (3.6-5.0); SODIUM 142.6 mmol/L (137-145)
[2018-05-28 17:54] LABS: ARTERIAL BLOOD BASE EXCESS -3.2 mmol/L; ARTERIAL BLOOD FIO2 70%; ARTERIAL BLOOD H2CO3 1.38 mmol/L (1.05-1.35); ARTERIAL BLOOD HCO3 22.8 mmol/L (20-26); ARTERIAL BLOOD O2 SATURATION 97.7 % (94-98); ARTERIAL BLOOD PCO2 45.7 mmHg (35-45); ARTERIAL BLOOD PH 7.32 (7.35-7.45); ARTERIAL BLOOD PO2 112.3 mmHg (80-100); ARTERIAL BLOOD TOTAL CO2 24.2 mmol/L (21-25)
--- NOTE | 2018-05-28 18:28 | PDOC PROGRESS REPORT ---
Subjective Progress Note for:: 05/28/18 Subjective:: Patient remain on BiPAP support but continue to demonstrate hyperpnea and audible wheezing. Denied any chest pain. Intolerant of BiPAP discontinuation with desaturation. Difficulty with feeding and administration of oral medication. Remain on IV Diltiazem due to atrial fibrillation. Reason For Visit: ADMIT TO ICU FOR PNA AND SEPSIS Physical Exam Vital Signs: Temp Pulse Resp BP Pulse Ox 99.1 F 93 33 H 138/60 H 97 05/28/18 06:00 05/28/18 05:43 05/28/18 06:00 05/28/18 05:43 05/28/18 06:00 Intake & Output 05/27/18 05/28/18 05/29/18 06:59 06:59 06:59 Intake Total 1340 1477 Output Total 980 1155 Balance 360 322 Weight 69.4 kg 68.1 kg General appearance: PRESENT: mild distress - more moderate to severe with high respiratory rate, obese Head exam: PRESENT: atraumatic, normocephalic Mouth exam: PRESENT: other - Limited evaluation due to BiPAP in use Respiratory exam: PRESENT: decreased breath sounds, rhonchi, wheezes Cardiovascular exam: PRESENT: irregular rhythm, +S1, +S2, tachycardia Vascular exam: PRESENT: normal capillary refill. ABSENT: pallor GI/Abdominal exam: PRESENT: normal bowel sounds, soft. ABSENT: distended, guarding, mass, organolmegaly, rebound, tenderness Extremities exam: ABSENT: pedal edema Musculoskeletal exam: PRESENT: normal inspection Neurological exam: PRESENT: alert, awake, oriented to person, oriented to place , oriented to time, oriented to situation, CN II-XII grossly intact. ABSENT: motor sensory deficit Psychiatric exam: PRESENT: agitated, anxious Skin exam: PRESENT: dry, intact, warm. ABSENT: cyanosis, rash Results Laboratory Results: 05/28/18 05:50 05/28/18 05:50 05/27/18 05/28/18 05/28/18 10:05 05:50 05:50 WBC 22.0 H RBC 3.52 L Hgb 7.8 L Hct 25.3 L MCV 72 L MCH 22.2 L MCHC 31.0 L RDW 16.6 H Plt Count 227 Seg Neutrophils % Not Reportable Lymphocytes % Not Reportable Monocytes % Not Reportable Eosinophils % Not Reportable Basophils % Not Reportable Absolute Neutrophils Not Reportable Absolute Lymphocytes Not Reportable Absolute Monocytes Not Reportable Absolute Eosinophils Not Reportable Absolute Basophils Not Reportable Carbonic Acid 0.92 L HCO3/H2CO3 Ratio 20:1 ABG pH 7.42 ABG pCO2 30.5 L ABG pO2 82.8 ABG HCO3 19.2 L ABG O2 Saturation 96.5 ABG Base Excess -4.7 FiO2 40% Sodium 145.5 H Potassium 3.3 L Chloride 111 H Carbon Dioxide 22 Anion Gap 13 BUN 10 Creatinine 0.48 L Est GFR ( Amer) > 60 Est GFR (Non-Af Amer) > 60 Glucose 166 H Calcium 8.3 L 05/25/18 12:00 Sputum Gram Stain - Final 05/25/18 12:00 Sputum Sputum Culture - Final Mrsa (Meth Resis Staph Aureus) Reduced Normal Phoebe Impressions: Chest X-Ray 05/28/18 08:00 IMPRESSION: No change in dense lung parenchymal consolidation bilaterally, most confluent in the right upper lobe Assessment & Plan - Diagnosis (1) SIRS with acute organ dysfunction due to infectious process Is this a current diagnosis for this admission?: Yes Plan: Continue current supportive therapy with concern for possible intubation due to her current clinical status and increase work of breathing. (2) Lobar pneumonia, unspecified organism Is this a current diagnosis for this admission?: Yes Plan: Worsening consolidation and involvement of other areas of the lung of the lung on chest X ray. This may account for her desatiuration and increase dependency on BiPAP support. I will request pulmonary consultation with Dr. Brenner with consideration of intubation for further management. Add Zosyn 3.375 gm q6 hours to her antibiotic coverage. (3) Decompensated COPD with exacerbation (chronic obstructive pulmonary disease) Is this a current diagnosis for this admission?: Yes Plan: She is in need of respiratory support via intubation and ventilator mechanism. Overall prognosis remain guarded in view of her end stage COPD status with superimposed multilobar pneumonia. (4) Chronic atrial fibrillation Is this a current diagnosis for this admission?: Yes Plan: Continue IV Diltiazem therapy and anticoagulation with Eliquis. (5) HTN (hypertension) Qualifiers: Hypertension type: essential hypertension Qualified Code(s): I10 - Essential (primary) hypertension Is this a current diagnosis for this admission?: Yes Plan: See attending physician orders. (6) HLD (hyperlipidemia) Qualifiers: Hyperlipidemia type: pure hypercholesterolemia Qualified Code(s): E78.00 - Pure hypercholesterolemia, unspecified Is this a current diagnosis for this admission?: Yes Plan: See attending physician orders. (7) GERD (gastroesophageal reflux disease) Qualifiers: Esophagitis presence: esophagitis presence not specified Qualified Code(s) : K21.9 - Gastro-esophageal reflux disease without esophagitis Is this a current diagnosis for this admission?: Yes Plan: See attending physician orders. (8) Anxiety Is this a current diagnosis for this admission?: Yes Plan: See attending physician orders. (9) Depression Qualifiers: Depression Type: major depressive disorder Major depression recurrence: recurrent Active/Remission status: currently active Psychotic features: without psychotic features Is this a current diagnosis for this admission?: Yes Plan: See attending physician orders. - Time Time Spent with patient: 35 or more minutes Medications reviewed and adjusted accordingly: Yes Anticipated discharge: SNF Within: Other - Inpatient Certification Based on my medical assessment, after consideration of the patient's comorbidities, presenting symptoms, or acuity I expect that the services needed warrant INPATIENT care.: Yes I certify that my determination is in accordance with my understanding of Medicare's requirements for reasonable and necessary INPATIENT services [42 CFR 412.3e].: Yes Medical Necessity: Need Close Monitoring Due to Risk of Patient Decompensation, Need For IV Fluids, Need For Continuous Telemetry Monitoring, Need for Nebulizer Therapy and Monitoring of Response, Need for IV Antibiotics, Risk of Complication if Not Cared For in Hospital Post Hospital Care: D/C or Transfer Summary - Plan Summary Plan Summary: See attending physician orders.
[2018-05-28] MEDS: MORPHINE SULFATE 10 MG/ML INJ INJ PRN (21:31)
[2018-05-29] MEDS: IPRATROPIUM/ALBUTEROL 0.5-2.5 MG/3 ML AMPUL NEB PRN ×3 (00:27→08:56)
[2018-05-29] MEDS: PIPERACILLIN SODIUM/TAZOBACTAM 3.375 GM in NORMAL SALINE 100 ML IV SCH ×4 (02:16→21:21)
[2018-05-29] MEDS ORDERED: PHENYLEPHRINE HCL INJ/PF 10 MG/1 ML SDV ONE (04:32)
[2018-05-29] MEDS: DEXTROSE 5%-WATER 250 ML with PHENYLEPHRINE HCL 40 MG IV PRN ×8 (04:46→19:38)
[2018-05-29] MEDS: GABAPENTIN 400 MG CAPSULE NG SCH ×3 (05:36→21:23)
[2018-05-29] MEDS: VANCOMYCIN HCL 1,000 MG in DEXTROSE 5%-WATER 250 ML IV SCH ×2 (05:36→17:25)
[2018-05-29] MEDS: LANSOPRAZOLE 30 MG TAB.RAP.DR NG SCH (05:37)
[2018-05-29] MEDS: PROPOFOL 1,000 MG/100 ML INFUS..BTL IV PRN (05:37)
[2018-05-29 06:21] LABS: ARTERIAL BLOOD BASE EXCESS -5.1 mmol/L; ARTERIAL BLOOD H2CO3 1.55 mmol/L (1.05-1.35); ARTERIAL BLOOD HCO3 22.1 mmol/L (20-26); ARTERIAL BLOOD O2 SATURATION 90.6 % (94-98); ARTERIAL BLOOD PCO2 51.6 mmHg (35-45); ARTERIAL BLOOD PH 7.25 (7.35-7.45); ARTERIAL BLOOD PO2 68.6 mmHg (80-100); ARTERIAL BLOOD TOTAL CO2 23.7 mmol/L (21-25)
[2018-05-29 06:23] LABS: ARTERIAL BLOOD FIO2 40%
[2018-05-29 06:34] LABS: ANION GAP 10 (5-19); BLOOD UREA NITROGEN 12 mg/dL (7-20); CALCIUM 7.8 mg/dL (8.4-10.2); CARBON DIOXIDE 22 mmol/L (22-30); CHLORIDE 109 mmol/L (98-107); GLUCOSE 154 mg/dL (75-110); POTASSIUM 3.7 mmol/L (3.6-5.0); SODIUM 140.9 mmol/L (137-145)
[2018-05-29 06:52] LABS: HEMATOCRIT 27.5 % (36.0-47.0); HEMOGLOBIN 8.2 g/dL (12.0-15.5); MEAN CORPUSCULAR HGB CONC 29.9 g/dL (32.0-36.0); MEAN CORPUSCULAR VOLUME 74 fl (80-97); PLATELET COUNT 339 10^3/uL (150-450); RED BLOOD COUNT 3.75 10^6/uL (3.72-5.28); RED CELL DISTRIBUTION WIDTH 17.2 % (11.5-14.0); WHITE BLOOD COUNT 24.8 10^3/uL (4.0-10.5)
[2018-05-29 07:25] LABS: ABSOLUTE LYMPHOCYTES# (MANUAL) 2.2 10^3/uL (0.5-4.7); ABSOLUTE NEUTROPHILS# (MANUAL) 18.1 10^3/uL (1.7-8.2); BASOPHILS % (MANUAL) 0 % (0-2); EOSINOPHILS % (MANUAL) 2 % (0-6); LYMPHOCYTES % (MANUAL) 8 % (13-45); MONOCYTES % (MANUAL) 16 % (3-13); SEGMENTED NEUTROPHILS % (MAN) 73 % (42-78); TOTAL CELLS COUNTED 100
[2018-05-29 07:26] LABS: ANISOCYTOSIS 1+; HYPOCHROMASIA 1+; OVALOCYTES 1+; PLATELET COMMENT ADEQUATE; POIKILOCYTOSIS 1+
[2018-05-29] MEDS ORDERED: NOREPINEPHRINE BITARTRATE INJ/PF 4 MG/4 ML SDV IV ONE (08:01)
[2018-05-29] MEDS ORDERED: DEXTROSE 5%-WATER 250 ML with NOREPINEPHRINE BITARTRATE 4 MG IV PRN ×2 (08:04)
[2018-05-29] MEDS ORDERED: NORMAL SALINE 250 ML IV PRN (08:05)
[2018-05-29] MEDS ORDERED: DOPAMINE HCL 800 MG/D5W 250 ML IV PRN (08:06)
--- NOTE | 2018-05-29 08:25 | RADIOLOGY REPORT (SQ) ---
EXAM DESCRIPTION: CHEST SINGLE VIEW COMPLETED DATE/TIME: 05/29/2018 6:47 am REASON FOR STUDY: on ventilator COMPARISON: 11/15/2017, 05/26/2018, 05/27/2018, 05/28/2018 EXAM PARAMETERS: NUMBER OF VIEWS: One view. TECHNIQUE: Single frontal radiographic view of the chest acquired. RADIATION DOSE: NA LIMITATIONS: None. FINDINGS: LUNGS AND PLEURA: Unchanged dense consolidation in the right upper lobe, unchanged diffuse alveolar and interstitial infiltrates elsewhere in the lungs. No pleural effusions. No pneumothora x. MEDIASTINUM AND HILAR STRUCTURES: No masses. Contour normal. HEART AND VASCULAR STRUCTURES: No cardiomegaly BONES: No acute findings. HARDWARE: Endotracheal tube tip midtrachea. Nasogastric tube tip and side port in the stomach. Righ t jugular central line tip in the right atrium OTHER: No other significant finding. IMPRESSION: No change from yesterday TECHNICAL DOCUMENTATION: JOB ID: [id number] [employer]- All Rights Reserved Reading location - IP/workstation name: [facility]-RR
[2018-05-29] MEDS: ACETAMINOPHEN SOLN 325 MG/10.15 ML UDCUP NG PRN (09:28)
[2018-05-29] MEDS: METHYLPREDNISOLONE INJ 40 MG/1 ML SDV IV SCH ×2 (09:31→17:25)
[2018-05-29 09:34] LABS: ARTERIAL BLOOD BASE EXCESS -7.2 mmol/L; ARTERIAL BLOOD H2CO3 1.56 mmol/L (1.05-1.35); ARTERIAL BLOOD HCO3 20.6 mmol/L (20-26); ARTERIAL BLOOD O2 SATURATION 91.6 % (94-98); ARTERIAL BLOOD PCO2 51.8 mmHg (35-45); ARTERIAL BLOOD PH 7.22 (7.35-7.45); ARTERIAL BLOOD PO2 73.5 mmHg (80-100); ARTERIAL BLOOD TOTAL CO2 22.2 mmol/L (21-25)
[2018-05-29 09:35] LABS: ARTERIAL BLOOD FIO2 45%
[2018-05-29] MEDS: NYSTATIN TOPICAL POWDER 15 GM TP SCH ×2 (09:36→17:26)
[2018-05-29] MEDS: APIXABAN 5 MG TABLET NG SCH (09:36)
[2018-05-29] MEDS: MULTIVITAMIN ORAL LIQUID 60 ML NG SCH (09:37)
[2018-05-29] MEDS: VALSARTAN 160 MG TABLET NG SCH (09:37)
--- NOTE | 2018-05-29 10:36 | RADIOLOGY REPORT (SQ) ---
EXAM DESCRIPTION: CHEST SINGLE VIEW COMPLETED DATE/TIME: 05/29/2018 10:25 am REASON FOR STUDY: tube placement COMPARISON: AP chest 05/29/2018 0619 hours EXAM PARAMETERS: NUMBER OF VIEWS: One view. TECHNIQUE: Single frontal radiographic view of the chest acquired. RADIATION DOSE: NA LIMITATIONS: None. FINDINGS: LUNGS AND PLEURA: Unchanged dense consolidation in the right upper lobe and left retrocard iac region. Unchanged diffuse alveolar and interstitial infiltrates elsewhere with trace right pleur al effusion. No pneumothorax. MEDIASTINUM AND HILAR STRUCTURES: No masses. Contour normal. HEART AND VASCULAR STRUCTURES: No cardiomegaly BONES: No acute findings. HARDWARE: Endotracheal tube tip 4 cm above the jenny. Nasogastric tube tip and side port in the sto mach. Right jugular central line tip right atrium. OTHER: No other significant finding. IMPRESSION: No change from earlier today. Endotracheal tube tip in good positioning TECHNICAL DOCUMENTATION: JOB ID: [id number] [employer]- All Rights Reserved Reading location - IP/workstation name: [email or web address]
[2018-05-29] MEDS ORDERED: EPINEPHRINE INJ/PF 1 MG/1 ML AMPULE ONE (11:15)
[2018-05-29] MEDS ORDERED: LIDOCAINE 2% INJ (20 MG/ML) 20 ML MDV ONE (11:15)
[2018-05-29] MEDS ORDERED: NALOXONE HCL INJ/PF 0.4 MG/1 ML SDV ONE (11:15)
[2018-05-29] MEDS ORDERED: LIDOCAINE 2% JELLY 30 ML TUBE ONE (11:15)
[2018-05-29] MEDS ORDERED: FLUMAZENIL INJ 0.5 MG/5 ML VIAL ONE (11:16)
[2018-05-29] MEDS ORDERED: FENTANYL CITRATE INJ/PF 100 MCG/2 ML AMPUL ONE (11:16)
[2018-05-29] MEDS ORDERED: MIDAZOLAM 2 MG/2 ML INJ ONE ×2 (11:16)
[2018-05-29] MEDS ORDERED: EPINEPHRINE INJ 1 MG/10 ML DISP.SYRIN ONE (11:17)
[2018-05-29] MEDS: MIDAZOLAM HCL 50 MG/100 ML RTUINJ IV PRN ×3 (11:18→23:53)
[2018-05-29] MEDS: GENTAMICIN SULFATE IV SCH (11:19)
[2018-05-29] MEDS: NORMAL SALINE IV SCH (11:19)
[2018-05-29 11:20] LABS: ARTERIAL BLOOD BASE EXCESS -5.4 mmol/L; ARTERIAL BLOOD H2CO3 1.38 mmol/L (1.05-1.35); ARTERIAL BLOOD HCO3 21.1 mmol/L (20-26); ARTERIAL BLOOD O2 SATURATION 94.4 % (94-98); ARTERIAL BLOOD PCO2 45.8 mmHg (35-45); ARTERIAL BLOOD PH 7.28 (7.35-7.45); ARTERIAL BLOOD PO2 80.3 mmHg (80-100); ARTERIAL BLOOD TOTAL CO2 22.5 mmol/L (21-25)
[2018-05-29] MEDS: NORMAL SALINE 1000 ML 1,000 ML IV PRN ×2 (11:20→23:50)
[2018-05-29 11:21] LABS: ARTERIAL BLOOD FIO2 50%
[2018-05-29] MEDS: IPRATROPIUM/ALBUTEROL 0.5-2.5 MG/3 ML AMPUL NEB SCH ×2 (13:22→20:31)
[2018-05-29 14:27] LABS: VANCOMYCIN,TROUGH 25.7 ug/mL (5.0-20.0)
--- NOTE | 2018-05-29 14:53 | RADIOLOGY REPORT (SQ) ---
EXAM DESCRIPTION: CHEST SINGLE VIEW COMPLETED DATE/TIME: 05/29/2018 2:38 pm REASON FOR STUDY: s/p bronchoscopy COMPARISON: 05/29/2018 1010 hours, 0619 hours EXAM PARAMETERS: NUMBER OF VIEWS: One view. TECHNIQUE: Single frontal radiographic view of the chest acquired. RADIATION DOSE: NA LIMITATIONS: None. FINDINGS: LUNGS AND PLEURA: No change in dense consolidation right upper lobe, and left retrocardiac region. Patchy airspace disease elsewhere is stable. No pneumothorax. No pleural effusions. MEDIASTINUM AND HILAR STRUCTURES: No masses. Contour normal. HEART AND VASCULAR STRUCTURES: Stable borderline cardiomegaly BONES: No acute findings. HARDWARE: Endotracheal tube, nasogastric tube, right jugular central line in good positioning OTHER: No other significant finding. IMPRESSION: No change from earlier today TECHNICAL DOCUMENTATION: JOB ID: [id number] [employer]- All Rights Reserved Reading location - IP/workstation name: [email or web address]
[2018-05-29 15:27] LABS: ARTERIAL BLOOD BASE EXCESS -6.3 mmol/L; ARTERIAL BLOOD H2CO3 1.09 mmol/L (1.05-1.35); ARTERIAL BLOOD O2 SATURATION 92.9 % (94-98); ARTERIAL BLOOD PCO2 36.1 mmHg (35-45); ARTERIAL BLOOD PH 7.34 (7.35-7.45); ARTERIAL BLOOD PO2 68.6 mmHg (80-100); ARTERIAL BLOOD TOTAL CO2 20.1 mmol/L (21-25)
[2018-05-29 15:33] LABS: ARTERIAL BLOOD FIO2 35%
[2018-05-29] MEDS ORDERED: MULTIVITAMIN ORAL LIQUID 60 ML NG ONE (19:00)
[2018-05-29] MEDS ORDERED: APIXABAN 5 MG TABLET NG ONE (19:15)
--- NOTE | 2018-05-29 19:40 | PDOC PROGRESS REPORT ---
Subjective Progress Note for:: 05/29/18 Subjective:: Patient had episodes of hypotension ad hypoxemia despite pressor support and ventilatory supports due to her agitation and override of the vent setting. She had N/S bolus and additional use of Dopamine with Levophed for her hypotension. She had bronchial toileting by Dr. Brenner with subsequent improvement in her status. Currently on supplemental oxygen at 35%. Tolerating enteral tube feeding. No reported fever or diarrhea. Reason For Visit: ADMIT TO ICU FOR PNA AND SEPSIS Physical Exam Vital Signs: Temp Pulse Resp BP Pulse Ox 97.9 F 72 30 H 112/46 L 100 05/29/18 18:35 05/29/18 18:00 05/29/18 18:35 05/29/18 18:35 05/29/18 18:35 Intake & Output 05/28/18 05/29/18 05/30/18 06:59 06:59 06:59 Intake Total 1477 4030 2253 Output Total 1155 755 595 Balance 322 3275 1658 Weight 68.1 kg 71.2 kg Physical Exam: Intubated and vent supported with ET and OG tunes in situ. General appearance: Sedated on Midazolam infusion. Head exam: PRESENT: atraumatic, normocephalic Mouth exam: Limited due to ET and OG tubes in situ. Respiratory exam: Satisfactory air flow, clear to auscultation, Reduced breath sound in left apical region and bilateral basal areas Cardiovascular exam: PRESENT: irregular rhythm, +S1, +S2, tachycardia Vascular exam: PRESENT: normal capillary refill. ABSENT: pallor GI/Abdominal exam: PRESENT: normal bowel sounds, soft. ABSENT: distended, guarding, mass, organomegaly, rebound, tenderness Extremities exam: ABSENT: pedal edema Musculoskeletal exam: PRESENT: normal inspection Neurological exam: Sedated but withdraw appropriately to stimuli. Psychiatric exam: PRESENT: agitated, anxious Skin exam: PRESENT: dry, intact, warm. ABSENT: cyanosis, rash Results Laboratory Results: 05/29/18 06:05 05/29/18 13:40 05/29/18 05/29/18 05/29/18 06:05 06:05 06:05 WBC 24.8 H RBC 3.75 Hgb 8.2 L Hct 27.5 L MCV 74 L MCH 22.0 L MCHC 29.9 L RDW 17.2 H Plt Count 339 Seg Neutrophils % Not Reportable Lymphocytes % Not Reportable Monocytes % Not Reportable Eosinophils % Not Reportable Basophils % Not Reportable Absolute Neutrophils Not Reportable Absolute Lymphocytes Not Reportable Absolute Monocytes Not Reportable Absolute Eosinophils Not Reportable Absolute Basophils Not Reportable Carbonic Acid 1.55 H HCO3/H2CO3 Ratio 14:1 ABG pH 7.25 L ABG pCO2 51.6 H ABG pO2 68.6 L ABG HCO3 22.1 ABG O2 Saturation 90.6 L ABG Base Excess -5.1 FiO2 40% Sodium 140.9 Potassium 3.7 Chloride 109 H Carbon Dioxide 22 Anion Gap 10 BUN 12 Creatinine 0.78 Est GFR ( Amer) > 60 Est GFR (Non-Af Amer) > 60 Glucose 154 H Calcium 7.8 L Magnesium 05/29/18 05/29/18 05/29/18 09:15 11:00 13:40 WBC RBC Hgb Hct MCV MCH MCHC RDW Plt Count Seg Neutrophils % Lymphocytes % Monocytes % Eosinophils % Basophils % Absolute Neutrophils Absolute Lymphocytes Absolute Monocytes Absolute Eosinophils Absolute Basophils Carbonic Acid 1.56 H 1.38 H HCO3/H2CO3 Ratio 13:1 15:1 ABG pH 7.22 L 7.28 L ABG pCO2 51.8 H 45.8 H ABG pO2 73.5 L 80.3 ABG HCO3 20.6 21.1 ABG O2 Saturation 91.6 L 94.4 ABG Base Excess -7.2 -5.4 FiO2 45% 50% Sodium Potassium Chloride Carbon Dioxide Anion Gap BUN Creatinine Est GFR ( Amer) Est GFR (Non-Af Amer) Glucose Calcium Magnesium 2.1 05/29/18 05/29/18 13:40 15:00 WBC RBC Hgb Hct MCV MCH MCHC RDW Plt Count Seg Neutrophils % Lymphocytes % Monocytes % Eosinophils % Basophils % Absolute Neutrophils Absolute Lymphocytes Absolute Monocytes Absolute Eosinophils Absolute Basophils Carbonic Acid 1.09 HCO3/H2CO3 Ratio 17:1 ABG pH 7.34 L ABG pCO2 36.1 ABG pO2 68.6 L ABG HCO3 19.0 L ABG O2 Saturation 92.9 L ABG Base Excess -6.3 FiO2 35% Sodium Potassium Chloride Carbon Dioxide Anion Gap BUN Creatinine 0.86 Est GFR ( Amer) > 60 Est GFR (Non-Af Amer) > 60 Glucose Calcium Magnesium 05/29/18 13:12 Bronchial Washings Fungal Smear - Final Not Reportable 05/29/18 13:12 Bronchial Washings Fungal Smear - Final Not Reportable 05/29/18 13:12 Bronchial Washings Fungal Smear - Final Not Reportable 05/29/18 13:12 Bronchial Washings Fungal Smear - Final Not Reportable 05/29/18 13:12 Bronchial Washings Fungal Smear - Final Not Reportable 05/29/18 13:12 Bronchial Washings Fungal Culture - Final Not Reportable 05/29/18 13:12 Bronchial Washings Fungal Culture - Final Not Reportable 05/29/18 13:12 Bronchial Washings Fungal Culture - Final Not Reportable 05/29/18 13:12 Bronchial Washings Susceptibility Special Request - Final Not Reportable 05/29/18 13:12 Bronchial Washings Nocardia 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 05/29/18 13:12 Bronchial Washings Nocardia Susceptibility - Final Not Reportable 05/29/18 13:12 Bronchial Washings Nocardia Susceptibility - Final Not Reportable 05/29/18 13:12 Bronchial Washings Nocardia Susceptibility - Final Not Reportable 05/29/18 13:12 Bronchial Washings Nocardia Susceptibility - Final Not Reportable 05/29/18 13:12 Bronchial Washings Nocardia Susceptibility - Final Not Reportable 05/29/18 13:12 Bronchial Washings Nocardia Susceptibility - Final Not Reportable 05/29/18 13:12 Bronchial Washings Nocardia Susceptibility - Final Not Reportable 05/29/18 13:12 Bronchial Washings Nocardia Susceptibility - Final Not Reportable 05/29/18 13:12 Bronchial Washings Microbiology Comment - Final Not Reportable Impressions: KUB X-Ray 05/28/18 09:26 IMPRESSION: Nasogastric tube tip is present with the tip and side port in the stomach. Chest X-Ray 05/29/18 13:25 IMPRESSION: No change from earlier today Assessment & Plan - Diagnosis (1) SIRS with acute organ dysfunction due to infectious process Is this a current diagnosis for this admission?: Yes Plan: Continue current antibiotic therapy. (2) Lobar pneumonia, unspecified organism Is this a current diagnosis for this admission?: Yes Plan: Maintain on IV Vancomycin, Gentamycin, and Zosyn coverage. Follow up on culture findings and CBC indices. (3) Decompensated COPD with exacerbation (chronic obstructive pulmonary disease) Is this a current diagnosis for this admission?: Yes Plan: Maintain on current medication management. (4) Chronic atrial fibrillation Is this a current diagnosis for this admission?: Yes Plan: Maintain on current medication management. (5) HTN (hypertension) Qualifiers: Hypertension type: essential hypertension Qualified Code(s): I10 - Essential (primary) hypertension Is this a current diagnosis for this admission?: Yes Plan: Maintain on current medication management. (6) HLD (hyperlipidemia) Qualifiers: Hyperlipidemia type: pure hypercholesterolemia Qualified Code(s): E78.00 - Pure hypercholesterolemia, unspecified Is this a current diagnosis for this admission?: Yes Plan: Maintain on current medication management. (7) GERD (gastroesophageal reflux disease) Qualifiers: Esophagitis presence: esophagitis presence not specified Qualified Code(s) : K21.9 - Gastro-esophageal reflux disease without esophagitis Is this a current diagnosis for this admission?: Yes Plan: Maintain on current medication management. (8) Anxiety Is this a current diagnosis for this admission?: Yes Plan: Maintain on current medication management. (9) Depression Qualifiers: Depression Type: major depressive disorder Major depression recurrence: recurrent Active/Remission status: currently active Psychotic features: without psychotic features Is this a current diagnosis for this admission?: Yes Plan: Maintain on current medication management. - Time Time Spent with patient: 35 or more minutes Medications reviewed and adjusted accordingly: Yes Anticipated discharge: SNF Within: Other - Inpatient Certification Based on my medical assessment, after consideration of the patient's comorbidities, presenting symptoms, or acuity I expect that the services needed warrant INPATIENT care.: Yes I certify that my determination is in accordance with my understanding of Medicare's requirements for reasonable and necessary INPATIENT services [42 CFR 412.3e].: Yes Medical Necessity: Need Close Monitoring Due to Risk of Patient Decompensation, Need For IV Fluids, Need For Continuous Telemetry Monitoring, Need for Nebulizer Therapy and Monitoring of Response, Need for Pain Control, Need for IV Antibiotics, Risk of Complication if Not Cared For in Hospital Post Hospital Care: D/C or Transfer Summary - Plan Summary Plan Summary: Maintain on current medication management. See attending physician orders.
--- NOTE | 2018-05-29 19:56 | PROGRESS NOTE E ---
Progress Note NAME: SOHA DORSEY : 1945 AGE: 73Y DATE: 05/29/2018 ROOM: 601 SUBJECTIVE: The patient is a 73-year-old woman who came in for acute respiratory failure requiring invasive mechanical ventilation. Has multilobar pneumonia bilateral, septic shock, severe sepsis, urinary sepsis, MRSA pneumonia. The patient has not been doing well this morning requiring 2 vasopressors, Levophed and Surya-Synephrine. The patient appeared to be tachypneic, when off sedation. This morning the patient did not wake up. Urine output has been decreasing in the morning. Chest x-ray showed increased persistent opacification right upper lobe suspicious for mucous plug and possible aspiration of gastric contents. The patient underwent flexible bronchoscopy at noontime around 12:30 and there was no apparent evidence of aspiration of gastric contents noted. Suctioning involving the right upper lobe was done for several minutes, removing mucus plugs and purulent secretions, cautiously avoiding scratching the bronchial airways. The lower lobe airways both sides were also inspected and secretions were suctioned. There was no bleeding noted, even though the patient is on Eliquis .there was no bleeding noted following the bronchoscopy. Specimen from the bronchial washing will be sent for culture and for bacteria, AFB, and fungus. Her white count went up to 25,000 this morning. OBJECTIVE: GENERAL: The patient appears sedated, not in acute distress. VITAL SIGNS: Afebrile with a temperature of 97.9 with a T-max of 98.6. Blood pressure is 112/46 on Surya-Synephrine alone and off Levophed and dopamine. Respiratory rate is 30 breaths per minute, not breathing over the vent. Saturation 100% on 40% FiO2. The patient is on SIMV rate of 30, tidal volume is 5 and pressor support of 10 above PEEP. EYES: No jaundice or pallor. EARS, NOSE, AND THROAT: No ear drainage. No nasal discharge. HEAD AND NECK: No scalp swelling or tenderness. Neck is supple. CHEST AND LUNGS: The patient was wheezing with crackling sounds bilaterally both lungs. CARDIOVASCULAR: S1 and S2 is distinct. Normal rate, regular rhythm. ABDOMEN: Soft, flabby, nondistended. EXTREMITIES: No joint swelling, no cellulitis. DIAGNOSTICS: CBC done today showed a white count of 34.8, hemoglobin is 8.2, hematocrit is 27.5, platelet count is 239, no bands noted and *------* neutrophils is 26%. Blood gas done at 3 p.m. showed a pH of 7.34, pCO2 is 36.1, pO2 is 86.6, and bicarb is 19, oxygen saturation is 92.9%. Chest x-ray done today showed right upper lobe opacification, right lower lobe infiltrate and left lower lobe infiltrate. Infiltrate right lower lobe appeared to be decreasing this afternoon and right upper lobe opacification appeared to stable or slightly decreasing. ASSESSMENT: 1. ACUTE RESPIRATORY FAILURE REQUIRING INVASIVE MECHANICAL VENTILATION. 2. SEVERE HYPOXEMIA. 3. PNEUMONIA, BILATERAL DIFFUSE. 4. UROSEPSIS. 5. HISTORY OF COPD AND SMOKING HISTORY. PLAN/RECOMMENDATION: 1. Continue IV gentamicin, IV vancomycin, and IV Zosyn. Pharmacy to dose for both vancomycin and gentamicin and get trough. 2. Continue Surya-Synephrine drip and we will continue to titrate to keep the systolic blood pressure 100 mmHg or higher. 3. Will resume the Eliquis, and the NG tube feedings at 20 mL per hour. DICTATING PHYSICIAN: ML MARQUIS MD,JACQUIE,MPH [id number] PHY#: [id number] ID: [id number] JOB#: [id number] ACCT: [id number] cc: > MTDD
[2018-05-29] MEDS ORDERED: GLUCAGON,HUMAN RECOMB 1 MG INJ IM PRN (23:36)
[2018-05-29] MEDS ORDERED: DEXTROSE 40% GEL 15 GM TUBE X 2 PO PRN (23:36)
[2018-05-29] MEDS ORDERED: DEXTROSE 40% GEL 15 GM TUBE PO PRN (23:36)
[2018-05-29] MEDS ORDERED: DEXTROSE 50%-WATER SYRINGE 25 GM/50 ML DOSE IV PRN (23:36)
[2018-05-29] MEDS ORDERED: DEXTROSE 50%-WATER SYRINGE 12.5 GM/25 ML DOSE IV PRN (23:36)
[2018-05-29] MEDS: INSULIN LISPRO 100 UNIT/ML 3 ML VIAL SUBCUT SCH (23:49)
[2018-05-30] MEDS: IPRATROPIUM/ALBUTEROL 0.5-2.5 MG/3 ML AMPUL NEB SCH ×4 (02:02→20:22)
[2018-05-30] MEDS: PIPERACILLIN SODIUM/TAZOBACTAM 3.375 GM in NORMAL SALINE 100 ML IV SCH ×4 (02:05→20:32)
[2018-05-30] MEDS: METHYLPREDNISOLONE INJ 40 MG/1 ML SDV IV SCH ×3 (02:06→17:52)
[2018-05-30] MEDS: VANCOMYCIN HCL 1,000 MG in DEXTROSE 5%-WATER 250 ML IV SCH ×2 (05:37→18:00)
[2018-05-30] MEDS: GABAPENTIN 400 MG CAPSULE NG SCH ×3 (05:38→21:10)
[2018-05-30] MEDS: LANSOPRAZOLE 30 MG TAB.RAP.DR NG SCH (05:38)
[2018-05-30 06:16] LABS: ARTERIAL BLOOD BASE EXCESS -6.3 mmol/L; ARTERIAL BLOOD H2CO3 1.04 mmol/L (1.05-1.35); ARTERIAL BLOOD HCO3 18.6 mmol/L (20-26); ARTERIAL BLOOD O2 SATURATION 94.6 % (94-98); ARTERIAL BLOOD PCO2 34.4 mmHg (35-45); ARTERIAL BLOOD PH 7.35 (7.35-7.45); ARTERIAL BLOOD PO2 75.2 mmHg (80-100); ARTERIAL BLOOD TOTAL CO2 19.6 mmol/L (21-25)
[2018-05-30 06:17] LABS: ARTERIAL BLOOD FIO2 30%
[2018-05-30 06:20] LABS: ABSOLUTE LYMPHOCYTES (AUTO) 0.9 10^3/uL (0.5-4.7); ABSOLUTE MONOCYTES (AUTO) 0.7 10^3/uL (0.1-1.4); BASOPHILS % (AUTO) 0.1 % (0-2); HEMATOCRIT 25.4 % (36.0-47.0); LYMPHOCYTES % (AUTO) 6.9 % (13-45); MEAN CORPUSCULAR HEMOGLOBIN 22.4 pg (27.0-33.4); MEAN CORPUSCULAR HGB CONC 31.1 g/dL (32.0-36.0); MEAN CORPUSCULAR VOLUME 72 fl (80-97); MONOCYTES % (AUTO) 5.3 % (3-13); PLATELET COUNT 260 10^3/uL (150-450); RED BLOOD COUNT 3.53 10^6/uL (3.72-5.28); SEGMENTED NEUTROPHILS % (AUTO) 87.7 % (42-78); TOTAL CELLS COUNTED % (AUTO) 100 %; WHITE BLOOD COUNT 12.6 10^3/uL (4.0-10.5)
[2018-05-30 06:23] LABS: HEMOGLOBIN 7.9 g/dL (12.0-15.5)
[2018-05-30] MEDS: MIDAZOLAM HCL 50 MG/100 ML RTUINJ IV PRN ×2 (06:31→15:52)
[2018-05-30 06:36] LABS: ALANINE AMINOTRANSFERASE 45 U/L (9-52); ALBUMIN 2.2 g/dL (3.5-5.0); ALKALINE PHOSPHATASE 111 U/L (38-126); ANION GAP 11 (5-19); ASPARTATE AMINO TRANSFERASE 31 U/L (14-36); BILIRUBIN,DIRECT 0.5 mg/dL (0.0-0.4); BILIRUBIN,TOTAL 0.6 mg/dL (0.2-1.3); BLOOD UREA NITROGEN 15 mg/dL (7-20); CALCIUM 7.7 mg/dL (8.4-10.2); CARBON DIOXIDE 19 mmol/L (22-30); CHLORIDE 110 mmol/L (98-107); GLUCOSE 252 mg/dL (75-110); POTASSIUM 3.2 mmol/L (3.6-5.0); SODIUM 139.9 mmol/L (137-145); TOTAL PROTEIN 4.8 g/dL (6.3-8.2)
[2018-05-30] MEDS: INSULIN LISPRO 100 UNIT/ML 3 ML VIAL SUBCUT SCH ×4 (06:55→23:17)
[2018-05-30] MEDS: POTASSIUM CHLORIDE 20 MEQ/50 ML RTU IV SCH ×2 (06:57→07:56)
--- NOTE | 2018-05-30 07:12 | RADIOLOGY REPORT (SQ) ---
EXAM DESCRIPTION: CHEST SINGLE VIEW COMPLETED DATE/TIME: 05/30/2018 6:01 am REASON FOR STUDY: on ventilator COMPARISON: Multiple since 11/15/2017, most recently 05/29/2018 EXAM PARAMETERS: NUMBER OF VIEWS: One view. TECHNIQUE: Single frontal radiographic view of the chest acquired. RADIATION DOSE: NA LIMITATIONS: None. FINDINGS: LUNGS AND PLEURA: No change in diffuse bilateral alveolar and interstitial infiltrates com pared to [id number] hours accounting for differences in technique. No pneumothorax. Trace left pleur al fluid. MEDIASTINUM AND HILAR STRUCTURES: No masses. Contour normal. HEART AND VASCULAR STRUCTURES: No cardiomegaly BONES: No acute findings. HARDWARE: Endotracheal tube, nasogastric tube, right jugular line in good positioning. OTHER: No other significant finding. IMPRESSION: No change from yesterday TECHNICAL DOCUMENTATION: JOB ID: [id number] [employer]- All Rights Reserved Reading location - IP/workstation name: [facility]-COUNT INCLUDES THE [facility]
--- NOTE | 2018-05-30 08:44 | PDOC PROGRESS REPORT ---
Subjective Progress Note for:: 05/30/18 Subjective:: Patient is responding to current management. Remain intubated and vent supported. Tolerating enteral tube feeding. Reason For Visit: ADMIT TO ICU FOR PNA AND SEPSIS Physical Exam Vital Signs: Temp Pulse Resp BP Pulse Ox 97.2 F 91 28 H 110/55 L 100 05/30/18 06:36 05/30/18 08:03 05/30/18 08:03 05/30/18 06:36 05/30/18 08:03 Intake & Output 05/29/18 05/30/18 05/31/18 06:59 06:59 06:59 Intake Total 4030 4287 Output Total 755 1265 150 Balance 3275 3022 -150 Weight 71.2 kg 74.5 kg Physical Exam: Intubated and vent supported with ET and OG tunes in situ. General appearance: Sedated on Midazolam infusion. Head exam: PRESENT: atraumatic, normocephalic Mouth exam: Limited due to ET and OG tubes in situ. Respiratory exam: Satisfactory air flow, clear to auscultation, Reduced breath sound in left apical region and bilateral basal areas Cardiovascular exam: PRESENT: irregular rhythm, +S1, +S2, tachycardia Vascular exam: PRESENT: normal capillary refill. ABSENT: pallor GI/Abdominal exam: PRESENT: normal bowel sounds, soft. ABSENT: distended, guarding, mass, organomegaly, rebound, tenderness Extremities exam: ABSENT: pedal edema Musculoskeletal exam: PRESENT: normal inspection Neurological exam: Sedated but withdraw appropriately to stimuli. Psychiatric exam: PRESENT: agitated, anxious Skin exam: PRESENT: dry, intact, warm. ABSENT: cyanosis, rash Results Laboratory Results: 05/30/18 06:00 05/30/18 06:00 05/29/18 05/29/18 05/29/18 09:15 11:00 13:40 WBC RBC Hgb Hct MCV MCH MCHC RDW Plt Count Seg Neutrophils % Lymphocytes % Monocytes % Eosinophils % Basophils % Absolute Neutrophils Absolute Lymphocytes Absolute Monocytes Absolute Eosinophils Absolute Basophils Carbonic Acid 1.56 H 1.38 H HCO3/H2CO3 Ratio 13:1 15:1 ABG pH 7.22 L 7.28 L ABG pCO2 51.8 H 45.8 H ABG pO2 73.5 L 80.3 ABG HCO3 20.6 21.1 ABG O2 Saturation 91.6 L 94.4 ABG Base Excess -7.2 -5.4 FiO2 45% 50% Sodium Potassium Chloride Carbon Dioxide Anion Gap BUN Creatinine Est GFR ( Amer) Est GFR (Non-Af Amer) Glucose Calcium Magnesium 2.1 Total Bilirubin AST ALT Alkaline Phosphatase Total Protein Albumin 05/29/18 05/29/18 05/30/18 13:40 15:00 06:00 WBC RBC Hgb Hct MCV MCH MCHC RDW Plt Count Seg Neutrophils % Lymphocytes % Monocytes % Eosinophils % Basophils % Absolute Neutrophils Absolute Lymphocytes Absolute Monocytes Absolute Eosinophils Absolute Basophils Carbonic Acid 1.09 1.04 L HCO3/H2CO3 Ratio 17:1 17:1 ABG pH 7.34 L 7.35 ABG pCO2 36.1 34.4 L ABG pO2 68.6 L 75.2 L ABG HCO3 19.0 L 18.6 L ABG O2 Saturation 92.9 L 94.6 ABG Base Excess -6.3 -6.3 FiO2 35% 30% Sodium Potassium Chloride Carbon Dioxide Anion Gap BUN Creatinine 0.86 Est GFR ( Amer) > 60 Est GFR (Non-Af Amer) > 60 Glucose Calcium Magnesium Total Bilirubin AST ALT Alkaline Phosphatase Total Protein Albumin 05/30/18 05/30/18 06:00 06:00 WBC 12.6 H RBC 3.53 L Hgb 7.9 L Hct 25.4 L MCV 72 L MCH 22.4 L MCHC 31.1 L RDW 17.0 H Plt Count 260 Seg Neutrophils % 87.7 H Lymphocytes % 6.9 L Monocytes % 5.3 Eosinophils % 0.0 Basophils % 0.1 Absolute Neutrophils 11.0 H Absolute Lymphocytes 0.9 Absolute Monocytes 0.7 Absolute Eosinophils 0.0 Absolute Basophils 0.0 Carbonic Acid HCO3/H2CO3 Ratio ABG pH ABG pCO2 ABG pO2 ABG HCO3 ABG O2 Saturation ABG Base Excess FiO2 Sodium 139.9 Potassium 3.2 L Chloride 110 H Carbon Dioxide 19 L Anion Gap 11 BUN 15 Creatinine 0.84 Est GFR ( Amer) > 60 Est GFR (Non-Af Amer) > 60 Glucose 252 H Calcium 7.7 L Magnesium Total Bilirubin 0.6 AST 31 ALT 45 Alkaline Phosphatase 111 Total Protein 4.8 L Albumin 2.2 L 05/24/18 20:35 Blood Blood Culture - Final NO GROWTH IN 5 DAYS 05/29/18 13:12 Bronchial Washings Fungal Smear - Final Not Reportable 05/29/18 13:12 Bronchial Washings Fungal Smear - Final Not Reportable 05/29/18 13:12 Bronchial Washings Fungal Smear - Final Not Reportable 05/29/18 13:12 Bronchial Washings Fungal Smear - Final Not Reportable 05/29/18 13:12 Bronchial Washings Fungal Smear - Final Not Reportable 05/29/18 13:12 Bronchial Washings Fungal Culture - Final Not Reportable 05/29/18 13:12 Bronchial Washings Fungal Culture - Final Not Reportable 05/29/18 13:12 Bronchial Washings Fungal Culture - Final Not Reportable 05/29/18 13:12 Bronchial Washings Susceptibility Special Request - Final Not Reportable 05/29/18 13:12 Bronchial Washings Nocardia 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 [employer] 05/29/18 13:12 Bronchial Washings Nocardia Susceptibility - Final Not Reportable 05/29/18 13:12 Bronchial Washings Nocardia Susceptibility - Final Not Reportable 05/29/18 13:12 Bronchial Washings Nocardia Susceptibility - Final Not Reportable 05/29/18 13:12 Bronchial Washings Nocardia Susceptibility - Final Not Reportable 05/29/18 13:12 Bronchial Washings Nocardia Susceptibility - Final Not Reportable 05/29/18 13:12 Bronchial Washings Nocardia Susceptibility - Final Not Reportable 05/29/18 13:12 Bronchial Washings Nocardia Susceptibility - Final Not Reportable 05/29/18 13:12 Bronchial Washings Nocardia Susceptibility - Final Not Reportable 05/29/18 13:12 Bronchial Washings Microbiology Comment - Final Not Reportable Impressions: KUB X-Ray 05/28/18 09:26 IMPRESSION: Nasogastric tube tip is present with the tip and side port in the stomach. Chest X-Ray 05/30/18 05:00 IMPRESSION: No change from yesterday Assessment & Plan - Diagnosis (1) SIRS with acute organ dysfunction due to infectious process Is this a current diagnosis for this admission?: Yes Plan: Continue current antibiotic therapy. (2) Lobar pneumonia, unspecified organism Is this a current diagnosis for this admission?: Yes Plan: Continue current antibiotic therapy. (3) Decompensated COPD with exacerbation (chronic obstructive pulmonary disease) Is this a current diagnosis for this admission?: Yes Plan: Continue current antibiotic therapy. (4) Chronic atrial fibrillation Is this a current diagnosis for this admission?: Yes Plan: Continue current antibiotic therapy. (5) HTN (hypertension) Qualifiers: Hypertension type: essential hypertension Qualified Code(s): I10 - Essential (primary) hypertension Is this a current diagnosis for this admission?: Yes Plan: Continue current antibiotic therapy. (6) HLD (hyperlipidemia) Qualifiers: Hyperlipidemia type: pure hypercholesterolemia Qualified Code(s): E78.00 - Pure hypercholesterolemia, unspecified Is this a current diagnosis for this admission?: Yes Plan: Continue current antibiotic therapy. (7) GERD (gastroesophageal reflux disease) Qualifiers: Esophagitis presence: esophagitis presence not specified Qualified Code(s) : K21.9 - Gastro-esophageal reflux disease without esophagitis Is this a current diagnosis for this admission?: Yes Plan: Continue current antibiotic therapy. (8) Anxiety Is this a current diagnosis for this admission?: Yes Plan: Continue current antibiotic therapy. (9) Depression Qualifiers: Depression Type: major depressive disorder Major depression recurrence: recurrent Active/Remission status: currently active Psychotic features: without psychotic features Is this a current diagnosis for this admission?: Yes Plan: Continue current antibiotic therapy. - Time Time Spent with patient: 25-34 minutes Medications reviewed and adjusted accordingly: Yes Anticipated discharge: SNF Within: Other - Inpatient Certification Based on my medical assessment, after consideration of the patient's comorbidities, presenting symptoms, or acuity I expect that the services needed warrant INPATIENT care.: Yes I certify that my determination is in accordance with my understanding of Medicare's requirements for reasonable and necessary INPATIENT services [42 CFR 412.3e].: Yes Medical Necessity: Need Close Monitoring Due to Risk of Patient Decompensation, Need For IV Fluids, Need For Continuous Telemetry Monitoring, Need for Nebulizer Therapy and Monitoring of Response, Need for IV Antibiotics, Risk of Complication if Not Cared For in Hospital Post Hospital Care: D/C or Transfer Summary - Plan Summary Plan Summary: See attending physician orders.
[2018-05-30] MEDS: MORPHINE SULFATE 10 MG/ML INJ INJ PRN ×2 (09:40→16:04)
[2018-05-30] MEDS: APIXABAN 5 MG TABLET NG SCH ×2 (09:41→17:52)
[2018-05-30] MEDS: MULTIVITAMIN ORAL LIQUID 60 ML NG SCH (09:41)
[2018-05-30] MEDS: NYSTATIN TOPICAL POWDER 15 GM TP SCH ×2 (09:57→17:54)
[2018-05-30] MEDS: VALSARTAN 160 MG TABLET NG SCH (09:57)
[2018-05-30] MEDS: NORMAL SALINE IV SCH (13:11)
[2018-05-30] MEDS: GENTAMICIN SULFATE IV SCH (13:11)
--- NOTE | 2018-05-30 13:17 | OPERATIVE REPORT E ---
Operative Report NAME: SOHA DORSEY : 1945 AGE: 73Y DATE OF SURGERY: 05/29/2018 ROOM: 601 PROCEDURE: Flexible bronchoscopy with bronchial washing. SURGEON: ML MARQUIS M.D. INDICATION: Worsening opacification in the right upper lobe, possible aspiration while on bippa therapy, and worsening pneumonia, bilateral and multilobar. TISSUES TAKEN: Bronchial washings, both lungs and predominantly the right upper lobe. DESCRIPTION OF PROCEDURE: Consent was obtained from the patient. Patient was connected to the director of cardiac rehabilitation, pulse oximeter, and currently endotracheally intubated and invasive mechanical ventilation. Flexible bronchoscope was inserted through the endotracheal tube. Rossi was sharp and midline. No bleeding noted. Bronchial secretions were suctioned. The right mainstem bronchus and left mainstem bronchus appeared normal. No foreign body or food particles noted. Right upper lobe was also suctioned with a little bit more purulent bronchial secretions. Bronchial washing was done several times in the right upper lobe and secretions suctioned thoroughly. There was no bleeding at the end of the procedure. The patient tolerated the procedure well. There were no adverse events during the flexible bronchoscopy. DICTATING PHYSICIAN: ML MARQUIS MD,JACQUIE,MPH [id number] PHY#: [id number] ID: [id number] JOB#: [id number] ACCT: [id number] cc:ML MARQUIS M.D. > MTDD
--- NOTE | 2018-05-30 13:39 | CONSULTATION REPORT E ---
Consultation Report NAME: SOHA DORSEY : 1945 AGE: 73Y DATE: 05/28/2018 601 A TO: ML MARQUIS M.D. FROM: STELLA NESBITT M.D. Requesting Physician HISTORY OF PRESENT ILLNESS: The patient is a 73-year-old female who came in with fever, respiratory distress, shortness of breath, fever, and severe COPD. The patient was placed on BiPAP for the last few days but did not improve. I was consulted today because of increasing shortness of breath. This morning, the patient is breathing about 45 breaths per minute. The patient was noted with shortness of breath on this admission . The patient subsequently got endotracheal intubation and mechanical ventilation. The patient's son agreed to the invasive mechanical ventilation. PAST MEDICAL HISTORY: 1. Atrial fibrillation. 2. Congestive heart failure. 3. Hypertension. 4. Denies any heart attacks, coagulation. 5. Bronchitis. 6. COPD. 7. History of seizures. 8. History of arthritis. 9. Depression. 10. Gastroesophageal reflux disease. ALLERGIES: Include: 1. ADHESIVE TAPE. 2. ROCEPHIN. MEDICATIONS AT HOME: Include: 1. Diamox. 2. Lasix. 3. Gabapentin. 4. Multivitamins. 5. Prilosec. 7. Flonase nasal spray. 8. Flovent inhaler. 9. Potassium chloride. 11. Diovan. PAST SURGICAL HISTORY: Cholecystectomy. SOCIAL HISTORY: Smokes 1 pack a day for several years. Drinks alcohol occasionally. Denies any illicit drug use or presumed drug abuse. CODE STATUS: FULL CODE. REVIEW OF SYSTEMS: CONSTITUTIONAL: Positive for fever, chills, and weakness, anorexia. EYES: No jaundice. No blurry vision. EARS: Complains of hearing changes. NOSE, MOUTH, AND THROAT: No sore throat or difficulty swallowing. CARDIOVASCULAR: No chest pain or palpitations. Went into atrial fibrillation during this admission and started on IV Cardizem. PULMONARY, CHEST AND LUNGS: Respiratory symptoms with increased shortness of breath, coughing. No hemoptysis. GASTROINTESTINAL: No nausea, vomiting, diarrhea. GENITOURINARY: No dysuria or hematuria. EXTREMITIES: No joint swelling. No cellulitis. NEUROLOGIC: confused but no focal weakness. PHYSICAL EXAMINATION: GENERAL: The patient appears to be awake, slightly confused. VITAL SIGNS: febrile, noted to be in respiratory distress this morning with a respiratory rate of 43, temperature of 97.5, blood pressure was 110/46, heart rate was 56. EYES: No jaundice or pallor. EARS, NOSE, AND THROAT: No ear drainage noted. No nasal discharge. HEAD/NECK: No scalp swelling or tenderness. Neck supple. CHEST AND LUNGS: No wheezing, no rhonchi, no coarse crackles. CARDIOVASCULAR: S1, S2 distant. No murmur. Regular rhythm. ABDOMEN: Flabby, positive bowel sounds, soft, nondistended, nontender. EXTREMITIES: No joint swelling and no cellulitis. LABORATORY: CBC done today showed a white count of 22,000 with 37,900 from 05/24/2018. Hemoglobin 7.8 today. Hematocrit is 25.3, platelet count is 225 with no bands noted. ABG at 11 a.m. showed pH of 7.33, PCO2 of 45.3, PO2 of 69.9, saturation 92.3% on 70% FiO2. Chemistry at 7:30 p.m. today showed sodium is 142, potassium 3.1, chloride is 111, CO2 is 25, BUN 10, creatinine 0.64, glucose 147, and calcium 7.7. Total protein yesterday was 5.6, potassium. Sputum culture done on 05/25/2018 showed MRSA. Chest x-ray today and the last 2 days showed increasing infiltrate right upper lobe and right lower lobe and diffuse in the left lower lobe, which was not seen on the day of admission. ASSESSMENT: 1. Acute respiratory failure requiring invasive mechanical ventilation. The patient failed BiPAP or noninvasive mechanical ventilation. 2. Pneumonia, bilateral. 3. Pulmonary edema, cannot be completely excluded. 4. Urinary tract infection. 5. Urosepsis. PLAN: 1. Endotracheal intubation was done by myself without difficulty and in a single attempt. Vocal cord was markedly anteriorly placed and patient has a difficult airway. Anesthesia was called and was present on standby for back up in case I ould not intubate. Patient was subsequently placed on ventilator this morning. The patient was placed on SIMV rate of 18, tidal volume of 400, pressor support of 10, PEEP of 5 and FiO2 of 100% and titrated to 50% this afternoon, and FiO2 titrated to keep saturation 91-94%. Recommended Zosyn IV to be added to the patient's current IV antibiotic regimen. Continue IV vancomycin. Repeat the sputum culture tonight and will send CBC, chem-7, ABG, and chest x-ray tomorrow. DICTATING PHYSICIAN: ML MARQUIS MD,JACQUIE,MPH [id number] PHY#: [id number] ID: [id number] JOB#: [id number] ACCT: [id number] cc:ML MARQUIS M.D. > [facility]
[2018-05-30 16:26] LABS: ANION GAP 10 (5-19); BLOOD UREA NITROGEN 17 mg/dL (7-20); CALCIUM 7.8 mg/dL (8.4-10.2); CARBON DIOXIDE 20 mmol/L (22-30); CHLORIDE 110 mmol/L (98-107); GLUCOSE 214 mg/dL (75-110); POTASSIUM 3.8 mmol/L (3.6-5.0)
[2018-05-30] MEDS: NORMAL SALINE 1000 ML 1,000 ML IV PRN (17:51)
[2018-05-30] MEDS: FLUCONAZOLE 200 MG/NS RTU 200 MG/100 ML RTUPB IV SCH (17:53)
--- NOTE | 2018-05-30 19:25 | PROGRESS NOTE E ---
Progress Note NAME: SOHA DORSEY : 1945 AGE: 73Y DATE: 05/30/2018 ROOM: 601 SUBJECTIVE: The patient is a 73-year-old female who came in with acute respiratory failure, requiring invasive mechanical ventilation; septic shock, severe sepsis, multilobar pneumonia bilateral, and COPD. The patient appeared to be doing well over the last 24 hours. Patient requiring lower FiO2 of 35% and PEEP of 5, and saturation of 93%. The patient with G-tube feeding and there is no vomiting, diarrhea, no adverse events over the last 24 hours. The patient's blood pressure appeared to be improving requiring lower bc-synephrine infusion dose.. The patient is still on Versed 6 mg per hour, fentanyl as needed. OBJECTIVE: GENERAL: Sedated, afebrile, not in acute respiratory distress. VITAL SIGNS: T-max of 96.8, temperature at present time 96.8. Blood pressure right now is 98/51, heart rate 106, and saturation is 90% on FiO2 of 35%. SIMV, PRVC with a rate of 20 breaths per minute, tidal volume 400, pressure support of 10, PEEP of 5. Peak airway pressure is 21, and mean airway pressure is 11. HEENT: Eyes: No conjunctival pallor. Ears, nose, and throat: No ear drainage noted, no nasal discharge. NECK: No neck tenderness. CHEST/LUNGS: No wheezing, no rhonchi noted. CARDIOVASCULAR: S1 is distinct. Normal rate and rhythm. ABDOMEN: Flabby. Positive bowel sounds. Soft, nondistended. EXTREMITIES: No joint swelling and no cellulitis. LABORATORY: This morning, white blood cell count 4.6, hemoglobin 7.9, hematocrit 25.4, platelet count 416. No bands noted. Blood gas this morning at 6:00 a.m. showed pH of 7.35, pCO2 of 34.4, pO2 of 75, bicarb 18.6. ABG oxygen saturation 94%. Chemistry done this morning shows sodium of 140, potassium 3.8, chloride 110, CO2 of 20, BUN 17, creatinine 0.87. Glucose 214. Calcium 7.8. Magnesium 2.2. ASSESSMENT: 1. ACUTE RESPIRATORY FAILURE. Requiring invasive mechanical ventilation. The patient appears to be slowly improving, requiring less FiO2. 2. SEVERE SEPSISSEPTIC SHOCK. The patient is undergoing vasopressors. 3. CHRONIC OBSTRUCTIVE PULMONARY DISEASE/ASTHMA. Currently not in bronchospasm. 4. MULTILOBAR PNEUMONIA BILATERAL. Right upper lobe infiltrate appeared to be improving. Some infiltrate left lower lobe. The right lower lobe appeared to be also improving. Getting more aerated. PLAN: Will continue the intravenous vancomycin, intravenous gentamicin, intravenous Zosyn. Continue current ventilator support and continue to optimize nutritional support. Patient tolerating NG tube feeding. Will continue on this with hemodynamic support. DICTATING PHYSICIAN: ML MARQUIS MD,JACQUIE,MPH [id number] PHY#: [id number] ID: [id number] JOB#: [id number] ACCT: [id number] cc: > MTDD
[2018-05-30] MEDS: DEXTROSE 5%-WATER 250 ML with PHENYLEPHRINE HCL 40 MG IV PRN ×2 (20:33)
[2018-05-30] MEDS: OXYCODONE-ACETAMINOPHEN 5-325 MG TABLET NG PRN (21:10)
[2018-05-31] MEDS: METHYLPREDNISOLONE INJ 40 MG/1 ML SDV IV SCH ×4 (01:37→21:10)
[2018-05-31] MEDS: IPRATROPIUM/ALBUTEROL 0.5-2.5 MG/3 ML AMPUL NEB SCH ×4 (02:22→20:12)
[2018-05-31] MEDS: PIPERACILLIN SODIUM/TAZOBACTAM 3.375 GM in NORMAL SALINE 100 ML IV SCH ×4 (02:49→21:09)
[2018-05-31] MEDS: NORMAL SALINE 1000 ML 1,000 ML IV PRN ×2 (02:49→23:37)
[2018-05-31] MEDS: MIDAZOLAM HCL 50 MG/100 ML RTUINJ IV PRN ×2 (02:50→13:56)
[2018-05-31] MEDS: OXYCODONE-ACETAMINOPHEN 5-325 MG TABLET NG PRN ×4 (02:54→21:52)
[2018-05-31 03:54] LABS: ARTERIAL BLOOD BASE EXCESS -5.7 mmol/L; ARTERIAL BLOOD H2CO3 1.13 mmol/L (1.05-1.35); ARTERIAL BLOOD HCO3 19.7 mmol/L (20-26); ARTERIAL BLOOD O2 SATURATION 92.7 % (94-98); ARTERIAL BLOOD PCO2 37.7 mmHg (35-45); ARTERIAL BLOOD PH 7.34 (7.35-7.45); ARTERIAL BLOOD PO2 68.2 mmHg (80-100); ARTERIAL BLOOD TOTAL CO2 20.8 mmol/L (21-25)
[2018-05-31 03:55] LABS: ARTERIAL BLOOD FIO2 30%
[2018-05-31] MEDS: LANSOPRAZOLE 30 MG TAB.RAP.DR NG SCH (05:09)
[2018-05-31] MEDS: GABAPENTIN 400 MG CAPSULE NG SCH ×3 (05:09→21:11)
[2018-05-31] MEDS: INSULIN LISPRO 100 UNIT/ML 3 ML VIAL SUBCUT SCH ×4 (05:32→23:37)
[2018-05-31 05:44] LABS: HEMATOCRIT 25.3 % (36.0-47.0); HEMOGLOBIN 7.7 g/dL (12.0-15.5); MEAN CORPUSCULAR HEMOGLOBIN 22.2 pg (27.0-33.4); MEAN CORPUSCULAR HGB CONC 30.6 g/dL (32.0-36.0); MEAN CORPUSCULAR VOLUME 73 fl (80-97); PLATELET COUNT 351 10^3/uL (150-450); RED BLOOD COUNT 3.48 10^6/uL (3.72-5.28); WHITE BLOOD COUNT 20.1 10^3/uL (4.0-10.5)
[2018-05-31 05:45] LABS: ALANINE AMINOTRANSFERASE 41 U/L (9-52); ALBUMIN 2.4 g/dL (3.5-5.0); ALKALINE PHOSPHATASE 96 U/L (38-126); ANION GAP 11 (5-19); ASPARTATE AMINO TRANSFERASE 34 U/L (14-36); BILIRUBIN,DIRECT 0.4 mg/dL (0.0-0.4); BILIRUBIN,TOTAL 0.6 mg/dL (0.2-1.3); BLOOD UREA NITROGEN 21 mg/dL (7-20); CARBON DIOXIDE 19 mmol/L (22-30); CHLORIDE 111 mmol/L (98-107); GLUCOSE 220 mg/dL (75-110); POTASSIUM 4.5 mmol/L (3.6-5.0); SODIUM 140.6 mmol/L (137-145); TOTAL PROTEIN 4.9 g/dL (6.3-8.2)
[2018-05-31 05:46] LABS: ABSOLUTE LYMPHOCYTES# (MANUAL) 1.6 10^3/uL (0.5-4.7); ABSOLUTE MONOCYTES # (MANUAL) 0.2 10^3/uL (0.1-1.4); ABSOLUTE NEUTROPHILS# (MANUAL) 18.3 10^3/uL (1.7-8.2); BASOPHILS % (MANUAL) 0 % (0-2); LYMPHOCYTES % (MANUAL) 8 % (13-45); MONOCYTES % (MANUAL) 1 % (3-13); OVALOCYTES SLIGHT; SEGMENTED NEUTROPHILS % (MAN) 91 % (42-78); TOTAL CELLS COUNTED 100; TOXIC GRANULATION SLIGHT
[2018-05-31 05:47] LABS: HYPOCHROMASIA 1+; PLATELET COMMENT ADEQUATE; PLATELET LARGE PRESENT; POLYCHROMASIA SLIGHT; TARGET CELLS SLIGHT
[2018-05-31 06:10] LABS: VANCOMYCIN,TROUGH 30.2 ug/mL (5.0-20.0)
[2018-05-31] MEDS: VANCOMYCIN HCL 1,000 MG in DEXTROSE 5%-WATER 250 ML IV SCH (06:22)
--- NOTE | 2018-05-31 07:52 | RADIOLOGY REPORT (SQ) ---
EXAM DESCRIPTION: CHEST SINGLE VIEW COMPLETED DATE/TIME: 05/31/2018 6:20 am REASON FOR STUDY: resp. failure, intubation, bilat pna COMPARISON: 11/15/2017, 05/24/2018, 05/28/2018 05/29/2018, 05/30/2018 EXAM PARAMETERS: NUMBER OF VIEWS: One view. TECHNIQUE: Single frontal radiographic view of the chest acquired. RADIATION DOSE: NA LIMITATIONS: None. FINDINGS: LUNGS AND PLEURA: Partial clearing of the dense consolidation in the right upper lobe comp ared to 05/29/2018. There is still patchy diffuse bilateral airspace disease most prominent at both bases. Trace bilater al pleural effusions. No pneumothorax. MEDIASTINUM AND HILAR STRUCTURES: No masses. Contour normal. HEART AND VASCULAR STRUCTURES: Borderline cardiomegaly BONES: No acute findings. HARDWARE: Endotracheal tube tip 3 cm above the jenny. Nasogastric tube tip and side port in the sto mach. Right jugular central line tip in the right atrium OTHER: No other significant finding. IMPRESSION: Partial clearing of the dense consolidation seen in the right upper lobe. Tubes and john es in good positioning. TECHNICAL DOCUMENTATION: JOB ID: [id number] [employer]- All Rights Reserved Reading location - IP/workstation name: [email or web address]
[2018-05-31] MEDS ORDERED: NORMAL SALINE 250 ML IV PRN ×2 (08:11)
[2018-05-31] MEDS ORDERED: PROPOFOL 1,000 MG/100 ML INFUS..BTL IV ONE (08:24)
--- NOTE | 2018-05-31 09:51 | RADIOLOGY REPORT (SQ) ---
EXAM DESCRIPTION: KUB/ABDOMEN (SINGLE VIEW) COMPLETED DATE/TIME: 05/31/2018 9:39 am REASON FOR STUDY: New NGT COMPARISON: 05/28/2018 KUB NUMBER OF VIEWS: One view. TECHNIQUE: Supine radiographic image of the abdomen acquired. LIMITATIONS: None. FINDINGS: Nasogastric tube tip and side port in the stomach. Persistent left basilar consolidation. The air in borderline dilated mid abdominal bowel loops. Old bilateral lower rib fractures IMPRESSION: Nasogastric tube tip and side port in the stomach. TECHNICAL DOCUMENTATION: JOB ID: [id number] [employer]- All Rights Reserved Reading location - IP/workstation name: [email or web address]
--- NOTE | 2018-05-31 09:54 | RADIOLOGY REPORT (SQ) ---
EXAM DESCRIPTION: CHEST SINGLE VIEW COMPLETED DATE/TIME: 05/31/2018 9:39 am REASON FOR STUDY: New ETT COMPARISON: Chest films 02/07/2017, 11/15/2017, 05/29/2018, 05/30/2018, 05/31/2018 EXAM PARAMETERS: NUMBER OF VIEWS: One view. TECHNIQUE: Single frontal radiographic view of the chest acquired. RADIATION DOSE: NA LIMITATIONS: Lung bases are partly cropped from the field of view. FINDINGS: LUNGS AND PLEURA: Trace pleural fluid, persistent dense consolidation left retrocardiac re gion. Right upper lobe airspace disease has improved compared to previous studies. No pneumothorax. MEDIASTINUM AND HILAR STRUCTURES: No masses. Contour normal. HEART AND VASCULAR STRUCTURES: Heart normal in size. Normal vasculature. BONES: No acute findings. HARDWARE: Endotracheal tube tip 3 cm above the jenny. Nasogastric tube tip and side port in the sto mach. Right jugular central line tip right atrium. OTHER: No other significant finding. IMPRESSION: Endotracheal tube, nasogastric tube, right jugular line in good positioning. Lungs and pleura unchanged from earlier today TECHNICAL DOCUMENTATION: JOB ID: [id number] [employer]- All Rights Reserved Reading location - IP/workstation name: [email or web address]
[2018-05-31] MEDS ORDERED: DOCUSATE SODIUM 100 MG CAPSULE PO SCH (10:00)
[2018-05-31] MEDS: VALSARTAN 160 MG TABLET NG SCH (10:14)
[2018-05-31] MEDS: NYSTATIN TOPICAL POWDER 15 GM TP SCH ×2 (10:21→18:32)
[2018-05-31] MEDS: MULTIVITAMIN ORAL LIQUID 60 ML NG SCH (10:21)
[2018-05-31] MEDS: GENTAMICIN SULFATE IV SCH (13:47)
[2018-05-31] MEDS: NORMAL SALINE IV SCH (13:47)
[2018-05-31] MEDS ORDERED: DIGOXIN 0.25 MG TABLET NG ONE (14:00)
[2018-05-31 16:38] LABS: HEMATOCRIT 28.5 % (36.0-47.0); MEAN CORPUSCULAR HEMOGLOBIN 23.3 pg (27.0-33.4); MEAN CORPUSCULAR HGB CONC 31.6 g/dL (32.0-36.0); MEAN CORPUSCULAR VOLUME 74 fl (80-97); PLATELET COUNT 266 10^3/uL (150-450); RED BLOOD COUNT 3.86 10^6/uL (3.72-5.28); RED CELL DISTRIBUTION WIDTH 18.6 % (11.5-14.0); WHITE BLOOD COUNT 15.7 10^3/uL (4.0-10.5)
[2018-05-31] MEDS ORDERED: BISACODYL 10 MG SUPP.RECT PR ONE ×2 (17:39→22:00)
--- NOTE | 2018-05-31 17:41 | Progress Note ---
Provider Note Provider Note: ID Consult Note Asked to review patient's chart by Pharmacy. Pt not seen or examined. Reviewed chest images, CXR reports, provider reports, labs, vitals. Ms Higgins is a 73 year old woman with PMH including COPD, CHF, and ongoing tobacco use who was admitted from home with c/o increasing SOB x 3 days with cough and fever with temp reportedly up to 101 F by EMS. On admission, she was noted to have respiratory distress, hypotension, rhonchi, wheezing, leukocytosis up to 37.9k, and CXR showing RUL infiltrate. She was initially managed with BiPAP. BCx drawn on 05/24 showed no growth. Sputum sent on 05/25 that showed 1+ GPCs in pairs and clusters on Gram stain and grew 3+ MRSA and reduced normal eliu. Cefepime and Levaquin were started on 05/24. Vancomycin was added on 05/26 in light of sputum results. Pt had last fever 100.6 F on 05/26. Pt did not improve with BiPAP and required intubation on 05/28. At that time, repeat sputum was sent, which grew 1+ MRSA, 1+ C. albicans/dublinensis and no normal eliu. Repeat BCx on 05/29 have shown no growth x 48h. Vancomycin was continued. Cefepime and levaquin were discontinued on 05/28 and Zosyn was started instead on 05/28 and gentamicin added on 05/29. CXR on 05/28 and 05/29 have shown RULE consolidation and patchy airspace disease elsewhere in the lungs b/l, and there was suspicion of possible aspiration of gastric contents and mucous plugging. Bronchoscopy on 05/29 was performed, which did not reveal any apparent evidence of aspiration of gastric contents; mucus plugs and purulent secretions were removed and specimens were sent for BAL with cultures for bacteria, AFB and fungi sent. Bronchial washings on 05/29 showed few yeast and rare GPC in clusters on Gram stain and preliminarily reported with culture growth of 2+ C albicans and 1+ GPCs in clusters. Woodward catheter urine specimen was sent that showed growth of C albicans/dublinensis. Most recently, WBC count has decreased to 20k, no bands, no fever since 05/26, FiO2 weaned down to 30%. Remains on phenylephrine currently. A swab collected from "open abscess on chin" that patient's family described as "spider bite" has 1+ GPCs in clusters preliminarily reported from culture. Impression/Recommendations 1. Septic shock, acute respiratory failure, secondary to MRSA pneumonia - Continue IV vancomycin, today is day 6. Pt has been improving. - Typical pneumonia treatment duration is around 7 days, but for MRSA pneumonia duration of therapy can be longer, depending on extent of the infection, gauge clinically. - Recommend discontinuing gentamicin and Zosyn as no Gram negatives have been isolated from sputum or blood cultures. 2. 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 Grecia pneumonia is rare and is usually associated with disseminated infection with hematological seeding of lungs in patients with hematological malignancies and severe immunosuppression. Presence of Grecia in BAL or sputum cx does not prove pathogenic role of the organism. Presence of Grecia in sputum /bronchial washings likely represents contamination. - Urinary colonization with Grecia albicans/dublinenesis, asymptomatic candiduria * Candiduria is common, often not pathogenic. More than half of patients in ICUs are colonized with Grecia species at some point during admission. Suspect pt has asymptomatic candiduria or urinary colonization, rather than true infection. Woodward catheter is predisposing factor for urinary colonization. Candidemia rarely results from candiduria. - Usually removing or replacing Woodward catheter helps in clearing candiduria - Currently, there is no evidence that the Grecia isolated from the urinary or respiratory tracts are anything but asymptomatic colonization/contamination. However, the fact that the patient has grown Grecia species from multiple sites and is critically ill does raise concern for development of invasive candidiasis or candidemia that could occur with contamination/colonization from a central line or gut translocation. As such, continuing fluconazole until the blood cultures from 05/29 are negative x 72h may be reasonable, since growth of yeast usually lags behind what would be expected for bacteria by another day or so. - Recommend discontinuing fluconazole if the blood cultures from 05/29 are negative x 72h and pt is stable/improving. - The growth of Grecia species would be expected to be selected for by broad spectrum antibiotic use, and this is another reason that de-escalating abx use by discontinuing gentamicin/Zosyn may be beneficial. Agustin Douglas MD [facility] Infectious Diseases pager [phone]
--- NOTE | 2018-05-31 17:57 | PDOC PROGRESS REPORT ---
Subjective Progress Note for:: 05/31/18 Subjective:: Patient was able to tolerate weaning process for about 5 minutes today. Tolerating enteral tube feeding. No bowel movement for several days. No reported fever or chills. Remain intubated and vent supported. Currently off pressor sup[port. Reason For Visit: ADMIT TO ICU FOR PNA AND SEPSIS Physical Exam Vital Signs: Temp Pulse Resp BP Pulse Ox 98.1 F 110 H 24 H 115/69 96 05/31/18 15:19 05/31/18 13:55 05/31/18 15:19 05/31/18 15:19 05/31/18 16:10 Intake & Output 05/30/18 05/31/18 06/01/18 06:59 06:59 06:59 Intake Total 4287 3566 360 Output Total 1265 885 400 Balance 3022 2681 -40 Weight 74.5 kg 77.5 kg Physical Exam: Intubated and vent supported with ET and OG tunes in situ. General appearance: Sedated on Midazolam infusion. Head exam: PRESENT: atraumatic, normocephalic Mouth exam: Limited due to ET and OG tubes in situ. Respiratory exam: Satisfactory air flow, clear to auscultation, Reduced breath sound bilateral basal areas Cardiovascular exam: PRESENT: irregular rhythm, +S1, +S2, tachycardia Vascular exam: PRESENT: normal capillary refill. ABSENT: pallor GI/Abdominal exam: PRESENT: normal bowel sounds, soft. ABSENT: distended, guarding, mass, organomegaly, rebound, tenderness Extremities exam: ABSENT: pedal edema Musculoskeletal exam: PRESENT: normal inspection Neurological exam: Sedated but withdraw appropriately to stimuli. Psychiatric exam: PRESENT: agitated, anxious Skin exam: PRESENT: dry, intact, warm. ABSENT: cyanosis, rash Results Laboratory Results: 05/31/18 16:28 05/31/18 03:45 05/31/18 05/31/18 05/31/18 03:45 03:45 03:45 WBC 20.1 H RBC 3.48 L Hgb 7.7 L Hct 25.3 L MCV 73 L MCH 22.2 L MCHC 30.6 L RDW 17.0 H Plt Count 351 Seg Neutrophils % Not Reportable Lymphocytes % Not Reportable Monocytes % Not Reportable Eosinophils % Not Reportable Basophils % Not Reportable Absolute Neutrophils Not Reportable Absolute Lymphocytes Not Reportable Absolute Monocytes Not Reportable Absolute Eosinophils Not Reportable Absolute Basophils Not Reportable Carbonic Acid 1.13 HCO3/H2CO3 Ratio 17:1 ABG pH 7.34 L ABG pCO2 37.7 ABG pO2 68.2 L ABG HCO3 19.7 L ABG O2 Saturation 92.7 L ABG Base Excess -5.7 FiO2 30% Sodium 140.6 Potassium 4.5 Chloride 111 H Carbon Dioxide 19 L Anion Gap 11 BUN 21 H Creatinine 1.00 Est GFR ( Amer) > 60 Est GFR (Non-Af Amer) 55 L Glucose 220 H Calcium 8.0 L Magnesium 2.2 Total Bilirubin 0.6 AST 34 ALT 41 Alkaline Phosphatase 96 Total Protein 4.9 L Albumin 2.4 L Blood Type Antibody Screen 05/31/18 05/31/18 08:39 16:28 WBC 15.7 H RBC 3.86 Hgb 9.0 L Hct 28.5 L MCV 74 L MCH 23.3 L MCHC 31.6 L RDW 18.6 H Plt Count 266 Seg Neutrophils % Lymphocytes % Monocytes % Eosinophils % Basophils % Absolute Neutrophils Absolute Lymphocytes Absolute Monocytes Absolute Eosinophils Absolute Basophils Carbonic Acid HCO3/H2CO3 Ratio ABG pH ABG pCO2 ABG pO2 ABG HCO3 ABG O2 Saturation ABG Base Excess FiO2 Sodium Potassium Chloride Carbon Dioxide Anion Gap BUN Creatinine Est GFR ( Amer) Est GFR (Non-Af Amer) Glucose Calcium Magnesium Total Bilirubin AST ALT Alkaline Phosphatase Total Protein Albumin Blood Type A POSITIVE Antibody Screen NEGATIVE 05/28/18 22:25 Sputum Gram Stain - Final 05/28/18 22:25 Sputum Sputum Culture - Final Mrsa (Meth Resis Staph Aureus) C.albicans/C.dubliniensis Normal Phoebe Absent 05/29/18 13:12 Bronchial Washings Fungal Smear - Final 05/29/18 13:12 Bronchial Washings Fungal Smear - Final 05/29/18 13:12 Bronchial Washings AFB Smear Concentration - Final 05/29/18 13:12 Bronchial Washings Acid Fast Bacilli Smear - Final 05/29/18 13:40 Woodward Catheter Urine Culture - Final C.albicans/C.dubliniensis Impressions: KUB X-Ray 05/31/18 00:00 IMPRESSION: Nasogastric tube tip and side port in the stomach. Chest X-Ray 05/31/18 06:00 IMPRESSION: Partial clearing of the dense consolidation seen in the right upper lobe. Tubes and lines in good positioning. Assessment & Plan - Diagnosis (1) SIRS with acute organ dysfunction due to infectious process Is this a current diagnosis for this admission?: Yes Plan: Continue current antibiotic therapy. Follow up on blood culture findings. (2) Lobar pneumonia, unspecified organism Is this a current diagnosis for this admission?: Yes Plan: Continue current antibiotic therapy. Follow up on blood culture findings. (3) Grecia infection, disseminated Is this a current diagnosis for this admission?: Yes Plan: Continue IV Diflucan coverage for both urinary and bronchopulmonary involvement. Follow up on blood culture findings. (4) Anemia due to infection Is this a current diagnosis for this admission?: Yes Plan: She received 1 unit PRBC transfusion earlier today. Follow up on AM lab results. She may need more PRBC transfusion in the future. (5) Decompensated COPD with exacerbation (chronic obstructive pulmonary disease) Is this a current diagnosis for this admission?: Yes Plan: Continue current antibiotic therapy. Follow up on blood culture findings. (6) Chronic atrial fibrillation Is this a current diagnosis for this admission?: Yes Plan: Start on Digoxin 0.25 mg / OG tube daily from tomorrow for rate and functional benefit. Obtain TTE evaluation of cardiac function and structure. (7) HTN (hypertension) Qualifiers: Hypertension type: essential hypertension Qualified Code(s): I10 - Essential (primary) hypertension Is this a current diagnosis for this admission?: Yes Plan: Continue current medication management. (8) HLD (hyperlipidemia) Qualifiers: Hyperlipidemia type: pure hypercholesterolemia Qualified Code(s): E78.00 - Pure hypercholesterolemia, unspecified Is this a current diagnosis for this admission?: Yes Plan: Continue current medication management. (9) GERD (gastroesophageal reflux disease) Qualifiers: Esophagitis presence: esophagitis presence not specified Qualified Code(s) : K21.9 - Gastro-esophageal reflux disease without esophagitis Is this a current diagnosis for this admission?: Yes Plan: Continue current medication management. (10) Anxiety Is this a current diagnosis for this admission?: Yes Plan: Continue current medication management. (11) Depression Qualifiers: Depression Type: major depressive disorder Major depression recurrence: recurrent Active/Remission status: currently active Psychotic features: without psychotic features Is this a current diagnosis for this admission?: Yes Plan: Continue current medication management. - Time Time Spent with patient: 25-34 minutes Medications reviewed and adjusted accordingly: Yes Anticipated discharge: SNF Within: Other - Inpatient Certification Based on my medical assessment, after consideration of the patient's comorbidities, presenting symptoms, or acuity I expect that the services needed warrant INPATIENT care.: Yes I certify that my determination is in accordance with my understanding of Medicare's requirements for reasonable and necessary INPATIENT services [42 CFR 412.3e].: Yes Medical Necessity: Need Close Monitoring Due to Risk of Patient Decompensation, Need For IV Fluids, Need For Continuous Telemetry Monitoring, Need for Nebulizer Therapy and Monitoring of Response, Need for Pain Control, Need for IV Antibiotics, Risk of Complication if Not Cared For in Hospital Post Hospital Care: D/C or Transfer Summary - Plan Summary Plan Summary: Continue current medication and supportive management. Start on Beneprotein 2 packs / OG tube tid. Dulcolax 10 mg OR x 1 dose. Increase feeding rate to 30 mL/ hour. Obtain CBC with diff and CMP in AM.
[2018-05-31] MEDS: FLUCONAZOLE 200 MG/NS RTU 200 MG/100 ML RTUPB IV SCH (17:59)
[2018-06-01] MEDS: IPRATROPIUM/ALBUTEROL 0.5-2.5 MG/3 ML AMPUL NEB SCH ×4 (00:46→20:12)
[2018-06-01] MEDS: PIPERACILLIN SODIUM/TAZOBACTAM 3.375 GM in NORMAL SALINE 100 ML IV SCH ×4 (02:20→21:45)
[2018-06-01] MEDS: MIDAZOLAM HCL 50 MG/100 ML RTUINJ IV PRN ×4 (04:16→19:36)
[2018-06-01 05:22] LABS: ARTERIAL BLOOD BASE EXCESS -5.2 mmol/L; ARTERIAL BLOOD FIO2 30%; ARTERIAL BLOOD H2CO3 0.98 mmol/L (1.05-1.35); ARTERIAL BLOOD O2 SATURATION 94.2 % (94-98); ARTERIAL BLOOD PCO2 32.5 mmHg (35-45); ARTERIAL BLOOD PH 7.39 (7.35-7.45); ARTERIAL BLOOD PO2 70.7 mmHg (80-100)
[2018-06-01] MEDS: GABAPENTIN 400 MG CAPSULE NG SCH ×3 (05:26→21:46)
[2018-06-01] MEDS: LANSOPRAZOLE 30 MG TAB.RAP.DR NG SCH (05:26)
[2018-06-01 05:28] LABS: ABSOLUTE LYMPHOCYTES (AUTO) 0.8 10^3/uL (0.5-4.7); BASOPHILS % (AUTO) 0.1 % (0-2); HEMOGLOBIN 8.8 g/dL (12.0-15.5); TOTAL CELLS COUNTED % (AUTO) 100 %
[2018-06-01 05:32] LABS: ABSOLUTE MONOCYTES (AUTO) 0.7 10^3/uL (0.1-1.4); ABSOLUTE NEUT (AUTO) 10.6 10^3/uL (1.7-8.2); HEMATOCRIT 27.4 % (36.0-47.0); LYMPHOCYTES % (AUTO) 6.8 % (13-45); MEAN CORPUSCULAR HEMOGLOBIN 23.7 pg (27.0-33.4); MEAN CORPUSCULAR HGB CONC 32.2 g/dL (32.0-36.0); MEAN CORPUSCULAR VOLUME 74 fl (80-97); MONOCYTES % (AUTO) 5.4 % (3-13); PLATELET COUNT 252 10^3/uL (150-450); RED BLOOD COUNT 3.73 10^6/uL (3.72-5.28); RED CELL DISTRIBUTION WIDTH 17.9 % (11.5-14.0); SEGMENTED NEUTROPHILS % (AUTO) 87.7 % (42-78); WHITE BLOOD COUNT 12.1 10^3/uL (4.0-10.5)
[2018-06-01 05:45] LABS: ANION GAP 9 (5-19); BLOOD UREA NITROGEN 27 mg/dL (7-20); CALCIUM 7.9 mg/dL (8.4-10.2); CARBON DIOXIDE 20 mmol/L (22-30); CHLORIDE 113 mmol/L (98-107); GLUCOSE 194 mg/dL (75-110); POTASSIUM 4.5 mmol/L (3.6-5.0); SODIUM 142.3 mmol/L (137-145)
[2018-06-01 05:48] LABS: VANCOMYCIN,TROUGH 19.2 ug/mL (5.0-20.0)
[2018-06-01] MEDS: INSULIN LISPRO 100 UNIT/ML 3 ML VIAL SUBCUT SCH ×3 (06:21→17:15)
--- NOTE | 2018-06-01 08:41 | RADIOLOGY REPORT (SQ) ---
EXAM DESCRIPTION: CHEST SINGLE VIEW COMPLETED DATE/TIME: 06/01/2018 6:14 am REASON FOR STUDY: bilateral pneumonia COMPARISON: Multiple since 05/24/2018 EXAM PARAMETERS: NUMBER OF VIEWS: One view. TECHNIQUE: Single frontal radiographic view of the chest acquired. RADIATION DOSE: NA LIMITATIONS: None. FINDINGS: LUNGS AND PLEURA: Further clearing of diffuse bilateral alveolar and interstitial infiltra vincent compared to 05/29/2018. Trace bilateral pleural fluid in the lateral costophrenic sulci. No pneumothorax. MEDIASTINUM AND HILAR STRUCTURES: No masses. Contour normal. HEART AND VASCULAR STRUCTURES: Heart normal in size. Normal vasculature. BONES: No acute findings. HARDWARE: Endotracheal tube tip 2 cm above the jenny. Nasogastric tube tip and side port in the sto mach. Right jugular central line tip right atrium. OTHER: No other significant finding. IMPRESSION: Tubes and lines in good positioning. Further decrease in airspace disease since 05/29/2018. TECHNICAL DOCUMENTATION: JOB ID: [id number] [employer]- All Rights Reserved Reading location - IP/workstation name: [email or web address], [facility]-RR2
[2018-06-01] MEDS: DIGOXIN 0.25 MG TABLET NG SCH (09:28)
[2018-06-01] MEDS: METHYLPREDNISOLONE INJ 40 MG/1 ML SDV IV SCH (09:29)
[2018-06-01] MEDS: MULTIVITAMIN ORAL LIQUID 60 ML NG SCH (09:29)
[2018-06-01] MEDS: NYSTATIN TOPICAL POWDER 15 GM TP SCH ×2 (09:30→17:16)
[2018-06-01] MEDS: DOCUSATE SODIUM 100 MG CAPSULE PO SCH ×2 (09:53→17:15)
[2018-06-01] MEDS: VALSARTAN 160 MG TABLET NG SCH (09:53)
[2018-06-01] MEDS: OXYCODONE-ACETAMINOPHEN 5-325 MG TABLET NG PRN ×2 (10:23→15:35)
--- NOTE | 2018-06-01 11:19 | PROGRESS NOTE E ---
Progress Note NAME: SOHA DORSEY : 1945 AGE: 73Y DATE: 05/31/2018 ROOM: 601 SUBJECTIVE: The patient is a 73-year-old female who came with acute respiratory failure requiring invasive mechanical ventilation, septic shock, multilobar pneumonia, MRSA pneumonia, and urinary tract infection. The patient appeared to be doing well over the last 24 hours. The patient was taken off the IV vasopressor a few hours ago and able to sustain a blood pressure of 106/52. The patient received 1 unit of blood transfusion, because hemoglobin dropped down to 7.7. After the blood transfusion hemoglobin went up to 9 g/dL. The patient tolerated the OG tube feeding well at 25 mL/hr, increased to 30 mL per hour tonight. The patient appeared to be constipated, was given Dulcolax per rectum. The patient moved her bowel. The endotracheal tube was changed by anesthesia service this morning, because the balloon was leaking. No diarrhea, no vomiting noted. OBJECTIVE: GENERAL: The patient appears sedated, afebrile, not in acute respiratory distress. VITAL SIGNS: Temperature of 97.5 with a T-max of 97.7, heart rate is 99, blood pressure is 100/46, respiratory is 28, saturation is 93% on SIMV rate of 28, tidal volume of 400, pressure support 10 above PEEP, PEEP of 5, and FiO2 of 30%. EYES: No jaundice or pallor. EARS, NOSE, AND THROAT: No ear drainage noted, no nasal discharge. HEAD AND NECK: No scalp swelling. CHEST AND LUNGS: No wheezing, no rhonchi, no coarse crackles. CARDIOVASCULAR: S1 is distinct. Regular rhythm, normal rate. ABDOMEN: Flabby. Positive bowel sounds. Soft, nondistended. EXTREMITIES: No joint swelling, no cellulitis. LABORATORY DATA: CBC done today after blood transfusion shows a white count of 15.7 from 20.1, hemoglobin is 9, hematocrit is 28.5, platelet count is 266. Blood gas done at 3:45 a.m. showed pH of 7.34, pCO2 was 37.7, pO2 was 68.2, and ABG oxygen saturation 92.7 on 30% FiO2. Chemistry done today showed sodium 140, potassium 4.5, chloride 111, carbon dioxide 19, BUN 31, creatinine is 1, glucose is 220, and calcium is 8, magnesium is 2.2, total bilirubin is 0.6, direct bilirubin is 0.4, total protein is 4.9, albumin is 2.4. IMAGING STUDIES: Chest x-ray showed an improvement in the consolidation involving the right upper lobe and the right lower lobe and the left lower lobe. An area of small amount pleural effusion, no pneumothorax noted, endotracheal tube is in place, the tip is 2-3 cm above the jenny. I reviewed the infectious disease recommendation from [facility] and she recommended discontinuation of IV Zosyn and gentamicin. I respectfully disagree with that recommendation. The patient is on IV vancomycin for several days prior to endotracheal intubation and patient progressively deteriorated despite the IV vancomycin for the treatment of the MRSA pneumonia since patient was admitted. The patient presented with bibasilar pulmonary infiltrates and pneumonia, which worsened on Monday, 4 days ago, associated with septic shock, when the patient was eventually endotracheally intubated and mechanically ventilated. ASSESSMENT: 1. ACUTE RESPIRATORY FAILURE. Requiring invasive mechanical ventilation. There are some signs of improvement and the patient requires lower FiO2 on a PEEP of 5, presenting with good oxygen saturation and improvement in the airspace disease on chest x-ray. 2. SEPTIC SHOCK/SEVERE SEPSIS. Currently improving. Blood pressure appeared to be stable and off IV vasopressor a few hours ago. 3. MULTILOBAR PNEUMONIA. Appeared to be clinically improving. Bronchial washings and culture showed positive for MRSA, but sputum culture results but have ruled out other gram-positive and gram-negative organisms. I would continue IV Zosyn and IV gentamicin in addition to IV vancomycin for now. PLAN: We will continue to optimize ventilator support and nutritional support and hemodynamic support. Sedation vacation every morning. We may consider spontaneous breathing trial tomorrow when the patient is fully awake. DICTATING PHYSICIAN: ML MARQUIS MD,JACQUIE,MPH [id number] PHY#: [id number] ID: [id number] JOB#: [id number] ACCT: [id number] cc: > [facility]
[2018-06-01] MEDS: GENTAMICIN SULFATE IV SCH (12:29)
[2018-06-01] MEDS: NORMAL SALINE IV SCH (12:29)
[2018-06-01 13:46] LABS: GENTAMICIN-TROUGH 2.6 ug/mL (<2.0)
--- NOTE | 2018-06-01 14:10 | PDOC PROGRESS REPORT ---
Subjective Progress Note for:: 06/01/18 Subjective:: Patient remain of pressor support. Patient is tolerating weaning process so today. She remain on enteral tube feeding without significant residual volume. There is bowel movement since last clinical evaluation. No reported fever or chills. Reason For Visit: ADMIT TO ICU FOR PNA AND SEPSIS Physical Exam Vital Signs: Temp Pulse Resp BP Pulse Ox 97.5 F 97 28 H 143/68 H 96 06/01/18 06:00 06/01/18 01:03 06/01/18 06:00 06/01/18 05:49 06/01/18 06:00 Intake & Output 05/31/18 06/01/18 06/02/18 06:59 06:59 06:59 Intake Total 3566 2901 Output Total 885 1350 Balance 2681 1551 Weight 77.5 kg 80.7 kg Physical Exam: Intubated and vent supported with ET and OG tunes in situ. General appearance: Sedated on Midazolam infusion. Head exam: PRESENT: atraumatic, normocephalic Mouth exam: Limited due to ET and OG tubes in situ. Respiratory exam: Satisfactory air flow, clear to auscultation, Reduced breath sound bilateral basal areas Cardiovascular exam: PRESENT: irregular rhythm, +S1, +S2, tachycardia Vascular exam: PRESENT: normal capillary refill. ABSENT: pallor GI/Abdominal exam: PRESENT: normal bowel sounds, soft. ABSENT: distended, guarding, mass, organomegaly, rebound, tenderness Extremities exam: ABSENT: pedal edema Musculoskeletal exam: PRESENT: normal inspection Neurological exam: Sedated but withdraw appropriately to stimuli. Psychiatric exam: PRESENT: agitated, anxious Skin exam: PRESENT: dry, intact, warm. ABSENT: cyanosis, rash Results Laboratory Results: 06/01/18 05:05 06/01/18 05:05 05/31/18 05/31/18 06/01/18 08:39 16:28 05:05 WBC 15.7 H RBC 3.86 Hgb 9.0 L Hct 28.5 L MCV 74 L MCH 23.3 L MCHC 31.6 L RDW 18.6 H Plt Count 266 Seg Neutrophils % Lymphocytes % Monocytes % Eosinophils % Basophils % Absolute Neutrophils Absolute Lymphocytes Absolute Monocytes Absolute Eosinophils Absolute Basophils Carbonic Acid 0.98 L HCO3/H2CO3 Ratio 19:1 ABG pH 7.39 ABG pCO2 32.5 L ABG pO2 70.7 L ABG HCO3 19.0 L ABG O2 Saturation 94.2 ABG Base Excess -5.2 FiO2 30% Sodium Potassium Chloride Carbon Dioxide Anion Gap BUN Creatinine Est GFR ( Amer) Est GFR (Non-Af Amer) Glucose Calcium Blood Type A POSITIVE Antibody Screen NEGATIVE 06/01/18 06/01/18 05:05 05:05 WBC 12.1 H RBC 3.73 Hgb 8.8 L Hct 27.4 L MCV 74 L MCH 23.7 L MCHC 32.2 RDW 17.9 H Plt Count 252 Seg Neutrophils % 87.7 H Lymphocytes % 6.8 L Monocytes % 5.4 Eosinophils % 0.0 Basophils % 0.1 Absolute Neutrophils 10.6 H Absolute Lymphocytes 0.8 Absolute Monocytes 0.7 Absolute Eosinophils 0.0 Absolute Basophils 0.0 Carbonic Acid HCO3/H2CO3 Ratio ABG pH ABG pCO2 ABG pO2 ABG HCO3 ABG O2 Saturation ABG Base Excess FiO2 Sodium 142.3 Potassium 4.5 Chloride 113 H Carbon Dioxide 20 L Anion Gap 9 BUN 27 H Creatinine 0.93 Est GFR ( Amer) > 60 Est GFR (Non-Af Amer) 59 L Glucose 194 H Calcium 7.9 L Blood Type Antibody Screen 05/30/18 11:35 Face - Chin Gram Stain - Final 05/30/18 11:35 Face - Chin Wound Culture - Final Mrsa (Meth Resis Staph Aureus) 05/28/18 22:25 Sputum Gram Stain - Final 05/28/18 22:25 Sputum Sputum Culture - Final Mrsa (Meth Resis Staph Aureus) C.albicans/C.dubliniensis Normal Phoebe Absent 05/29/18 13:12 Bronchial Washings Fungal Smear - Final 05/29/18 13:12 Bronchial Washings Fungal Smear - Final 05/29/18 13:12 Bronchial Washings AFB Smear Concentration - Final 05/29/18 13:12 Bronchial Washings Acid Fast Bacilli Smear - Final Impressions: KUB X-Ray 05/31/18 00:00 IMPRESSION: Nasogastric tube tip and side port in the stomach. Assessment & Plan - Diagnosis (1) SIRS with acute organ dysfunction due to infectious process Is this a current diagnosis for this admission?: Yes Plan: Continue current antibiotic therapy. Follow up on blood culture findings. (2) Lobar pneumonia, unspecified organism Is this a current diagnosis for this admission?: Yes Plan: Continue current antibiotic therapy. Sputum culture did revealed MRSA and Grecia species. Follow up on blood culture findings. (3) Grecia infection, disseminated Is this a current diagnosis for this admission?: Yes Plan: Continue IV Diflucan therapy for both urinary and bronchopulmonary involvement. Follow up on blood culture findings. (4) Anemia due to infection Is this a current diagnosis for this admission?: Yes Plan: Continue current medication management and support care. (5) Decompensated COPD with exacerbation (chronic obstructive pulmonary disease) Is this a current diagnosis for this admission?: Yes Plan: Continue current antibiotic therapy. Follow up on blood culture findings. Continue weaning process. (6) Chronic atrial fibrillation Is this a current diagnosis for this admission?: Yes Plan: Continue current medication management. Follow up on echocadiogram findings. (7) HTN (hypertension) Qualifiers: Hypertension type: essential hypertension Qualified Code(s): I10 - Essential (primary) hypertension Is this a current diagnosis for this admission?: Yes Plan: Continue current medication management. (8) HLD (hyperlipidemia) Qualifiers: Hyperlipidemia type: pure hypercholesterolemia Qualified Code(s): E78.00 - Pure hypercholesterolemia, unspecified Is this a current diagnosis for this admission?: Yes Plan: Continue current medication management. (9) GERD (gastroesophageal reflux disease) Qualifiers: Esophagitis presence: esophagitis presence not specified Qualified Code(s) : K21.9 - Gastro-esophageal reflux disease without esophagitis Is this a current diagnosis for this admission?: Yes Plan: Continue current medication management. (10) Anxiety Is this a current diagnosis for this admission?: Yes Plan: Continue current medication management. (11) Depression Qualifiers: Depression Type: major depressive disorder Major depression recurrence: recurrent Active/Remission status: currently active Psychotic features: without psychotic features Is this a current diagnosis for this admission?: Yes Plan: Continue current medication management. - Time Time Spent with patient: 25-34 minutes Medications reviewed and adjusted accordingly: Yes Anticipated discharge: SNF Within: Other - Inpatient Certification Based on my medical assessment, after consideration of the patient's comorbidities, presenting symptoms, or acuity I expect that the services needed warrant INPATIENT care.: Yes I certify that my determination is in accordance with my understanding of Medicare's requirements for reasonable and necessary INPATIENT services [42 CFR 412.3e].: Yes Medical Necessity: Need Close Monitoring Due to Risk of Patient Decompensation, Need For IV Fluids, Need For Continuous Telemetry Monitoring, Need for Nebulizer Therapy and Monitoring of Response, Need for Pain Control, Need for IV Antibiotics, Risk of Complication if Not Cared For in Hospital Post Hospital Care: D/C or Transfer Summary - Plan Summary Plan Summary: Maintain on current medication management. Follow up on blood culture findings.
[2018-06-01] MEDS: VANCOMYCIN HCL 750 MG in DEXTROSE 5%-WATER 250 ML IV SCH (17:14)
[2018-06-01] MEDS: APIXABAN 5 MG TABLET NG SCH (17:14)
[2018-06-01] MEDS: NORMAL SALINE 1000 ML 1,000 ML IV PRN (17:20)
--- NOTE | 2018-06-01 20:35 | PROGRESS NOTE E ---
Progress Note NAME: SOHA DORSEY : 1945 AGE: 73Y DATE: 06/01/2018 ROOM: 601 SUBJECTIVE: The patient is a 73-year-old female who came in with acute respiratory failure requiring invasive mechanical ventilation, multilobar pneumonia, septic shock. The patient has been doing well over the last 24 hours. Supervised breathing trial was done today, but the patient failed, so the patient was placed back on PRVC ventilator support. The patient's blood pressure has been stable and does not require IV vasopressor infusion. Denies any vomiting, diarrhea. Tolerating NG tube feeding. OBJECTIVE: EYES: No jaundice or pallor. EARS, NOSE, THROAT: No ear drainage and no nasal discharge. HEAD/NECK: No scalp swelling. Neck supple. CHEST/LUNGS: No wheezing, no rhonchi, no coarse crackles. CARDIOVASCULAR: S1, S2 distinct. No murmur. ABDOMEN: Flabby. Positive bowel sounds. Soft, nondistended, nontender. EXTREMITIES: No joint swelling or cellulitis. LABORATORY: CBC showed white count of 12.1, went down from 15.7. Hemoglobin 8.8, hematocrit 27.4, platelets 252. Blood gas this morning showed pH of 7.39, pCO2 is 32.5, pO2 is 70. ABG oxygen saturation 94. Chemistry done today showed sodium 142, potassium 4.5, chloride 113, CO2 is 20, BUN 37, creatinine 0.93, glucose 193. Calcium 7.9. Chest x-ray showed improvement of the pulmonary infiltrates in the right upper lobe and both lower lobes. ASSESSMENT: 1. ACUTE RESPIRATORY FAILURE requiring invasive mechanical ventilation. The patient failed supervised breathing trial today. Not ready to be extubated yet. 2. PNEUMONIA, BILATERAL, MULTILOBAR. Appears to be improving. 3. SEPTIC SHOCK. Resolved. Blood pressure appears to be improving as well. 4. BRONCHIAL ASTHMA. PLAN/RECOMMENDATIONS: 1. Continue to optimize ventilator support. IV Solu-Medrol. Start the patient on prednisone 5 mg daily. Continue IV vancomycin and IV Zosyn for now. 2. Will see the patient again tomorrow and may consider supervised breathing trial again tomorrow. DICTATING PHYSICIAN: ML MARQUIS MD,JACQUIE,MPH [id number] [id number] PHY#: [id number] 2010 ID: [id number] JOB#: [id number] ACCT: [id number] cc: > [facility]
[2018-06-01] MEDS ORDERED: PREDNISONE 5 MG TABLET NG ONE (21:00)
[2018-06-01] MEDS: FLUCONAZOLE 200 MG/NS RTU 200 MG/100 ML RTUPB IV SCH (23:38)
[2018-06-02] MEDS: INSULIN LISPRO 100 UNIT/ML 3 ML VIAL SUBCUT SCH ×4 (00:02→18:12)
[2018-06-02] MEDS: IPRATROPIUM/ALBUTEROL 0.5-2.5 MG/3 ML AMPUL NEB SCH ×4 (01:02→20:26)
[2018-06-02] MEDS: MIDAZOLAM HCL 50 MG/100 ML RTUINJ IV PRN ×4 (02:18→22:08)
[2018-06-02] MEDS: OXYCODONE-ACETAMINOPHEN 5-325 MG TABLET NG PRN ×4 (02:18→21:33)
[2018-06-02] MEDS: PIPERACILLIN SODIUM/TAZOBACTAM 3.375 GM in NORMAL SALINE 100 ML IV SCH ×4 (02:40→21:34)
[2018-06-02] MEDS: LANSOPRAZOLE 30 MG TAB.RAP.DR NG SCH (06:11)
[2018-06-02] MEDS: GABAPENTIN 400 MG CAPSULE NG SCH ×3 (06:11→21:33)
[2018-06-02 06:45] LABS: ANION GAP 9 (5-19); BLOOD UREA NITROGEN 29 mg/dL (7-20); CALCIUM 7.8 mg/dL (8.4-10.2); CARBON DIOXIDE 20 mmol/L (22-30); CHLORIDE 113 mmol/L (98-107); GLUCOSE 159 mg/dL (75-110); POTASSIUM 4.6 mmol/L (3.6-5.0); SODIUM 142.2 mmol/L (137-145)
[2018-06-02 06:49] LABS: HEMATOCRIT 28.2 % (36.0-47.0); MEAN CORPUSCULAR HEMOGLOBIN 23.6 pg (27.0-33.4); MEAN CORPUSCULAR HGB CONC 31.9 g/dL (32.0-36.0); MEAN CORPUSCULAR VOLUME 74 fl (80-97); PLATELET COUNT 260 10^3/uL (150-450); RED CELL DISTRIBUTION WIDTH 18.4 % (11.5-14.0); WHITE BLOOD COUNT 15.8 10^3/uL (4.0-10.5)
[2018-06-02 07:08] LABS: ABSOLUTE LYMPHOCYTES# (MANUAL) 1.4 10^3/uL (0.5-4.7); ABSOLUTE MONOCYTES # (MANUAL) 0.2 10^3/uL (0.1-1.4); ABSOLUTE NEUTROPHILS# (MANUAL) 14.2 10^3/uL (1.7-8.2); BASOPHILS % (MANUAL) 0 % (0-2); EOSINOPHILS % (MANUAL) 0 % (0-6); LYMPHOCYTES % (MANUAL) 8 % (13-45); MONOCYTES % (MANUAL) 1 % (3-13); SEGMENTED NEUTROPHILS % (MAN) 90 % (42-78); TOTAL CELLS COUNTED 100
[2018-06-02 07:09] LABS: ANISOCYTOSIS 1+; HYPOCHROMASIA 2+; POIKILOCYTOSIS 1+
[2018-06-02 07:10] LABS: OVALOCYTES 1+; TOXIC GRANULATION 1+
[2018-06-02 07:11] LABS: PLATELET COMMENT ADEQUATE
--- NOTE | 2018-06-02 08:27 | RADIOLOGY REPORT (SQ) ---
EXAM DESCRIPTION: CHEST SINGLE VIEW COMPLETED DATE/TIME: 06/02/2018 7:12 am REASON FOR STUDY: on ventilator COMPARISON: 06/01/2018. EXAM PARAMETERS: NUMBER OF VIEWS: One view. TECHNIQUE: Single frontal radiographic view of the chest acquired. RADIATION DOSE: NA LIMITATIONS: None. FINDINGS: LUNGS AND PLEURA: Persistent interstitial infiltrate right upper lobe at and airspace type infiltrate in lung bases. Bilateral pleural thickening or effusions right greater than left. MEDIASTINUM AND HILAR STRUCTURES: No masses. Contour normal. HEART AND VASCULAR STRUCTURES: The heart is unchanged in size. BONES: No acute findings. HARDWARE: ET tube above the jenny. OTHER: NG tube overlying stomach. Right IJ line overlying right atrium. Chest leads in place IMPRESSION: No significant change. TECHNICAL DOCUMENTATION: JOB ID: [id number] 2010 [employer]- All Rights Reserved Reading location - IP/workstation name: [email or web address]
[2018-06-02] MEDS: MULTIVITAMIN ORAL LIQUID 60 ML NG SCH (09:36)
[2018-06-02] MEDS: APIXABAN 5 MG TABLET NG SCH ×2 (09:38→18:11)
[2018-06-02] MEDS: DIGOXIN 0.25 MG TABLET NG SCH (09:38)
[2018-06-02] MEDS: DOCUSATE SODIUM 100 MG CAPSULE PO SCH ×2 (09:38→18:21)
[2018-06-02] MEDS: PREDNISONE 5 MG TABLET NG SCH (09:39)
[2018-06-02] MEDS: NYSTATIN TOPICAL POWDER 15 GM TP SCH ×2 (09:40→18:13)
[2018-06-02] MEDS: NORMAL SALINE 1000 ML 1,000 ML IV PRN ×2 (09:41→22:08)
[2018-06-02] MEDS ORDERED: GENTAMICIN SULFATE 100 MG in DEXTROSE 5%-WATER 100 ML IV SCH (10:00)
[2018-06-02] MEDS ORDERED: NORMAL SALINE IV SCH (10:00)
[2018-06-02] MEDS ORDERED: GENTAMICIN SULFATE IV SCH (10:00)
--- NOTE | 2018-06-02 10:56 | PDOC PROGRESS REPORT ---
Subjective Progress Note for:: 06/02/18 Subjective:: No reported fever or chills. Remain on Triple antibiotic and antifungal therapy. She remain on enteral tube feeding. Clinical prognostic status remain guarded. Reason For Visit: ADMIT TO ICU FOR PNA AND SEPSIS Physical Exam Vital Signs: Temp Pulse Resp BP Pulse Ox 97.9 F 90 20 124/60 98 06/02/18 10:00 06/02/18 10:00 06/02/18 10:00 06/02/18 10:00 06/02/18 10:00 Intake & Output 06/01/18 06/02/18 06/03/18 06:59 06:59 06:59 Intake Total 2901 3775 30 Output Total 1350 1355 250 Balance 1551 2420 -220 Weight 80.7 kg 82.4 kg Physical Exam: Intubated and vent supported with ET and OG tunes in situ. General appearance: Sedated on Midazolam infusion. Head exam: PRESENT: atraumatic, normocephalic Mouth exam: Limited due to ET and OG tubes in situ. Respiratory exam: Satisfactory air flow, clear to auscultation, Reduced breath sound bilateral basal areas Cardiovascular exam: PRESENT: irregular rhythm, +S1, +S2, tachycardia Vascular exam: PRESENT: normal capillary refill. ABSENT: pallor GI/Abdominal exam: PRESENT: normal bowel sounds, soft. ABSENT: distended, guarding, mass, organomegaly, rebound, tenderness Extremities exam: ABSENT: pedal edema Musculoskeletal exam: PRESENT: normal inspection Neurological exam: Sedated but withdraw appropriately to stimuli. Psychiatric exam: PRESENT: agitated, anxious Skin exam: PRESENT: dry, intact, warm. ABSENT: cyanosis, rash Results Laboratory Results: 06/02/18 06:10 06/02/18 06:10 06/02/18 06/02/18 06:10 06:10 WBC 15.8 H RBC 3.80 Hgb 9.0 L Hct 28.2 L MCV 74 L MCH 23.6 L MCHC 31.9 L RDW 18.4 H Plt Count 260 Seg Neutrophils % Not Reportable Lymphocytes % Not Reportable Monocytes % Not Reportable Eosinophils % Not Reportable Basophils % Not Reportable Absolute Neutrophils Not Reportable Absolute Lymphocytes Not Reportable Absolute Monocytes Not Reportable Absolute Eosinophils Not Reportable Absolute Basophils Not Reportable Sodium 142.2 Potassium 4.6 Chloride 113 H Carbon Dioxide 20 L Anion Gap 9 BUN 29 H Creatinine 1.02 Est GFR ( Amer) > 60 Est GFR (Non-Af Amer) 53 L Glucose 159 H Calcium 7.8 L 05/29/18 13:12 Bronchial Washings Gram Stain - Final 05/29/18 13:12 Bronchial Washings Bronchial Washings Culture - Final Mrsa (Meth Resis Staph Aureus) C.albicans/C.dubliniensis Greatly Reduced Normal Phoebe 05/30/18 11:35 Face - Chin Gram Stain - Final 05/30/18 11:35 Face - Chin Wound Culture - Final Mrsa (Meth Resis Staph Aureus) Impressions: KUB X-Ray 05/31/18 00:00 IMPRESSION: Nasogastric tube tip and side port in the stomach. Chest X-Ray 06/02/18 05:00 IMPRESSION: No significant change. Assessment & Plan - Diagnosis (1) SIRS with acute organ dysfunction due to infectious process Is this a current diagnosis for this admission?: Yes Plan: Continue current antibiotic therapy. Follow up on blood culture findings. (2) Lobar pneumonia, unspecified organism Is this a current diagnosis for this admission?: Yes Plan: Continue current antibiotic therapy. Follow up on blood culture findings. (3) Grecia infection, disseminated Is this a current diagnosis for this admission?: Yes Plan: Continue current antibiotic therapy. Follow up on blood culture findings. (4) Anemia due to infection Is this a current diagnosis for this admission?: Yes Plan: Continue current medication management and support care. (5) Decompensated COPD with exacerbation (chronic obstructive pulmonary disease) Is this a current diagnosis for this admission?: Yes Plan: Continue current medication management and support care. (6) Chronic atrial fibrillation Is this a current diagnosis for this admission?: Yes Plan: Continue current medication management and support care. (7) HTN (hypertension) Qualifiers: Hypertension type: essential hypertension Qualified Code(s): I10 - Essential (primary) hypertension Is this a current diagnosis for this admission?: Yes Plan: Continue current medication management and support care. (8) HLD (hyperlipidemia) Qualifiers: Hyperlipidemia type: pure hypercholesterolemia Qualified Code(s): E78.00 - Pure hypercholesterolemia, unspecified Is this a current diagnosis for this admission?: Yes Plan: Continue current medication management and support care. (9) GERD (gastroesophageal reflux disease) Qualifiers: Esophagitis presence: esophagitis presence not specified Qualified Code(s) : K21.9 - Gastro-esophageal reflux disease without esophagitis Is this a current diagnosis for this admission?: Yes Plan: Continue current medication management and support care. (10) Anxiety Is this a current diagnosis for this admission?: Yes Plan: Continue current medication management and support care. (11) Depression Qualifiers: Depression Type: major depressive disorder Major depression recurrence: recurrent Active/Remission status: currently active Psychotic features: without psychotic features Is this a current diagnosis for this admission?: Yes Plan: Continue current medication management and support care. - Time Time Spent with patient: 25-34 minutes Medications reviewed and adjusted accordingly: Yes Anticipated discharge: SNF Within: Other - Inpatient Certification Based on my medical assessment, after consideration of the patient's comorbidities, presenting symptoms, or acuity I expect that the services needed warrant INPATIENT care.: Yes I certify that my determination is in accordance with my understanding of Medicare's requirements for reasonable and necessary INPATIENT services [42 CFR 412.3e].: Yes Medical Necessity: Need Close Monitoring Due to Risk of Patient Decompensation, Need For IV Fluids, Need For Continuous Telemetry Monitoring, Need for Nebulizer Therapy and Monitoring of Response, Need for IV Antibiotics, Risk of Complication if Not Cared For in Hospital Post Hospital Care: D/C or Transfer Summary - Plan Summary Plan Summary: Continue current medication management and support care.
--- NOTE | 2018-06-02 13:26 | XCELERA REPORT ---
[address] [address] Transthoracic Echocardiogram Report Name: SOHA DORSEY Age: 73 yrs Gender: Female : 1945 Patient Status: Inpatient Patient Location: ICU^601^A Study Date: 06/01/2018 11:14 AM Height: 59 in Weight: 177 lb BSA: 1.8 m2 Procedure: A complete two-dimensional transthoracic echocardiogram was performed (2D, M-mode, spectral and color flow Doppler). The study was technically difficult with many images being suboptimal in quality. Reason For Study: Respiratory failure; chronic A.Fib Ordering Physician: STELLA NESBITT Interpretation Summary The study was technically difficult with many images being suboptimal in quality. The left ventricular ejection fraction is preserved. Consider additional methods to assess LVEF such as MUGA scan, CTA heart, cardiac MRI, HARLEY, etc. if clinically indicated. The left ventricle is grossly normal size. There is borderline concentric left ventricular hypertrophy. Doppler measurements suggest pseudonormalized left ventricular relaxation, which is associated with grade II/IV or mild to moderate diastolic dysfunction Regional wall motion abnormalities cannot be excluded due to limited visualization. The right ventricular systolic function is normal. The right ventricle is mildly dilated. Borderline right atrial enlargement. The left atrial size is normal. There is mild mitral stenosis There is a trace amount of mitral regurgitation There is no aortic valve stenosis No aortic regurgitation is present. There is a mild amount of tricuspid regurgitation There is mild pulmonary hypertension by echo Right ventricular systolic pressure is estimated to be elevated at 30- 40mmHg. The aortic root is not well visualized. The inferior vena cava appeared dilated and did not change with respiration (RAP > 20 mmHg) Minimal pericardial effusion. MMode/2D Measurements & Calculations RVDd: 3.3 cm LVIDd: 3.7 cm FS: 42.0 % Ao root diam: 2.5 cm IVSd: 0.88 cm LVIDs: 2.2 cm EDV(Teich): 58.4 ml LVPWd: 0.79 cmESV(Teich): 15.3 ml Ao root area: 4.8 cm2 EF(Teich): 73.8 % LA dimension: 3.2 cm LVOT diam: 1.6 cm LVOT area: 2.1 cm2 Doppler Measurements & Calculations MV E max tracy: MV P1/2t max tracy: Ao V2 max: LV V1 max P.7 cm/sec 118.9 cm/sec 107.0 cm/sec 4.5 mmHg MV P1/2t: 104.2 msec Ao max PG: LV V1 max: MVA(P1/2t): 2.1 cm2 4.6 mmHg 106.4 cm/sec MV dec slope: XI(V,D): 2.1 cm2 334.1 cm/sec2 MV dec time: 0.24 sec TV V2 max: PA V2 max: 291.1 cm/sec 78.0 cm/sec TV max PG: PA max P.4 mmHg 33.9 mmHg Left Ventricle The left ventricle is grossly normal size. There is borderline concentric left ventricular hypertrophy. The left ventricular ejection fraction is preserved. Consider additional methods to assess LVEF such as MUGA scan, CTA heart, cardiac MRI, HARLEY, etc. if clinically indicated. Doppler measurements suggest pseudonormalized left ventricular relaxation, which is associated with grade II/IV or mild to moderate diastolic dysfunction. Regional wall motion abnormalities cannot be excluded due to limited visualization. Right Ventricle The right ventricle is mildly dilated. The right ventricular systolic function is normal. Atria Borderline right atrial enlargement. The left atrial size is normal. Interarterial septum not well visualized and not well dopplered. Cannot comment on ASD/PFO presence. Mitral Valve There is moderate mitral annular calcification. There is mild mitral stenosis. There is a trace amount of mitral regurgitation. Aortic Valve The aortic valve is not well visualized secondary to technical limitations. The aortic valve opens well. There is no aortic valve stenosis. No aortic regurgitation is present. Tricuspid Valve The tricuspid valve is not well visualized secondary to technical limitations. There is no tricuspid stenosis. There is a mild amount of tricuspid regurgitation. There is mild pulmonary hypertension by echo. Right ventricular systolic pressure is estimated to be elevated at 30- 40mmHg. Pulmonic Valve The pulmonic valve is not well visualized. Great Vessels The aortic root is not well visualized. The inferior vena cava appeared dilated and did not change with respiration (RAP > 20 mmHg). Effusions Minimal pericardial effusion. : STELLA NESBITT > Astrid Celestin
--- NOTE | 2018-06-02 17:35 | RADIOLOGY REPORT (SQ) ---
EXAM DESCRIPTION: CHEST SINGLE VIEW COMPLETED DATE/TIME: 06/02/2018 5:12 pm REASON FOR STUDY: ON VENTILATOR. E. tube pulled out by 2 cm. COMPARISON: 06/02/2018 at 0647 hours. NUMBER OF VIEWS: One view. TECHNIQUE: Single frontal radiographic view of the chest acquired. LIMITATIONS: None. FINDINGS: LUNGS AND PLEURA: Basilar atelectasis. Bilateral pleural effusions. MEDIASTINUM AND HILAR STRUCTURES: No masses or contour abnormality. HEART AND VASCULATURE: Cardiac enlargement. Vascular congestion. BONES: No acute findings. HARDWARE: Tip of the endotracheal tube located 2 cm proximal to the jenny. Nasogastric tube with th e tip in the stomach. Right-sided central line. OTHER: No other significant finding. IMPRESSION: CARDIAC ENLARGEMENT. VASCULAR CONGESTION. LIFE LINES DESCRIBED. NO SIGNIFICANT ARI NGE. TECHNICAL DOCUMENTATION: JOB ID: [id number] [employer]- All Rights Reserved Reading location - IP/workstation name: [email or web address]
[2018-06-02] MEDS: VANCOMYCIN HCL 750 MG in DEXTROSE 5%-WATER 250 ML IV SCH (18:11)
[2018-06-02] MEDS: FLUCONAZOLE 200 MG/NS RTU 200 MG/100 ML RTUPB IV SCH (21:33)
[2018-06-03] MEDS: PIPERACILLIN SODIUM/TAZOBACTAM 3.375 GM in NORMAL SALINE 100 ML IV SCH ×4 (02:16→20:08)
[2018-06-03] MEDS: INSULIN LISPRO 100 UNIT/ML 3 ML VIAL SUBCUT SCH ×4 (02:17→18:45)
[2018-06-03] MEDS: IPRATROPIUM/ALBUTEROL 0.5-2.5 MG/3 ML AMPUL NEB SCH ×4 (02:49→20:19)
[2018-06-03] MEDS: OXYCODONE-ACETAMINOPHEN 5-325 MG TABLET NG PRN ×3 (04:09→20:33)
[2018-06-03] MEDS: MIDAZOLAM HCL 50 MG/100 ML RTUINJ IV PRN ×2 (04:21→13:25)
[2018-06-03] MEDS: GABAPENTIN 400 MG CAPSULE NG SCH ×3 (05:00→22:39)
[2018-06-03] MEDS: LANSOPRAZOLE 30 MG TAB.RAP.DR NG SCH (05:01)
[2018-06-03 05:23] LABS: ARTERIAL BLOOD BASE EXCESS -2.4 mmol/L; ARTERIAL BLOOD H2CO3 1.07 mmol/L (1.05-1.35); ARTERIAL BLOOD HCO3 21.9 mmol/L (20-26); ARTERIAL BLOOD O2 SATURATION 95.7 % (94-98); ARTERIAL BLOOD PCO2 35.6 mmHg (35-45); ARTERIAL BLOOD PH 7.41 (7.35-7.45); ARTERIAL BLOOD PO2 77.8 mmHg (80-100); ARTERIAL BLOOD TOTAL CO2 22.9 mmol/L (21-25)
[2018-06-03 05:27] LABS: ABSOLUTE EOSINOPHILS # (AUTO) 0.1 10^3/uL (0.0-0.6); ABSOLUTE LYMPHOCYTES (AUTO) 1.9 10^3/uL (0.5-4.7); ABSOLUTE MONOCYTES (AUTO) 0.9 10^3/uL (0.1-1.4); ABSOLUTE NEUT (AUTO) 10.8 10^3/uL (1.7-8.2); BASOPHILS % (AUTO) 0.1 % (0-2); EOSINOPHILS % (AUTO) 0.9 % (0-6); HEMATOCRIT 28.2 % (36.0-47.0); HEMOGLOBIN 8.9 g/dL (12.0-15.5); LYMPHOCYTES % (AUTO) 13.6 % (13-45); MEAN CORPUSCULAR HEMOGLOBIN 23.5 pg (27.0-33.4); MEAN CORPUSCULAR HGB CONC 31.6 g/dL (32.0-36.0); MEAN CORPUSCULAR VOLUME 74 fl (80-97); MONOCYTES % (AUTO) 6.5 % (3-13); PLATELET COUNT 265 10^3/uL (150-450); RED BLOOD COUNT 3.79 10^6/uL (3.72-5.28); SEGMENTED NEUTROPHILS % (AUTO) 78.9 % (42-78); TOTAL CELLS COUNTED % (AUTO) 100 %; WHITE BLOOD COUNT 13.7 10^3/uL (4.0-10.5)
[2018-06-03 05:28] LABS: ARTERIAL BLOOD FIO2 35%
[2018-06-03 05:42] LABS: ANION GAP 8 (5-19); BLOOD UREA NITROGEN 26 mg/dL (7-20); CALCIUM 7.8 mg/dL (8.4-10.2); CARBON DIOXIDE 23 mmol/L (22-30); CHLORIDE 111 mmol/L (98-107); GLUCOSE 139 mg/dL (75-110); POTASSIUM 4.4 mmol/L (3.6-5.0); SODIUM 141.9 mmol/L (137-145)
--- NOTE | 2018-06-03 08:37 | RADIOLOGY REPORT (SQ) ---
EXAM DESCRIPTION: CHEST SINGLE VIEW COMPLETED DATE/TIME: 06/03/2018 7:11 am REASON FOR STUDY: massive atelectasis, right lung s/p bronchoscopy COMPARISON: None. EXAM PARAMETERS: NUMBER OF VIEWS: One view. TECHNIQUE: Single frontal radiographic view of the chest acquired. RADIATION DOSE: NA LIMITATIONS: None. FINDINGS: LUNGS AND PLEURA: No significant change in airspace consolidation within the right lung an d right pleural effusion. No change in airspace consolidation left lung base and pleural effusion. MEDIASTINUM AND HILAR STRUCTURES: No masses. Contour normal. HEART AND VASCULAR STRUCTURES: Heart normal in size. Normal vasculature. BONES: No acute findings. HARDWARE:Endotracheal tube above the jenny. NG tube passing toward the stomach. Right IJ line unch anged. OTHER: Chest leads in place. IMPRESSION: No significant interval change. TECHNICAL DOCUMENTATION: JOB ID: [id number] [employer]- All Rights Reserved Reading location - IP/workstation name: [email or web address]
[2018-06-03] MEDS: DOCUSATE SODIUM 100 MG CAPSULE PO SCH ×2 (09:18→17:03)
[2018-06-03] MEDS: DIGOXIN 0.25 MG TABLET NG SCH (09:23)
[2018-06-03] MEDS: MULTIVITAMIN ORAL LIQUID 60 ML NG SCH (09:24)
[2018-06-03] MEDS: APIXABAN 5 MG TABLET NG SCH ×2 (09:24→17:03)
[2018-06-03] MEDS: PREDNISONE 5 MG TABLET NG SCH (09:24)
[2018-06-03] MEDS ORDERED: PROPOFOL 1,000 MG/100 ML INFUS..BTL IV PRN (11:09)
[2018-06-03] MEDS ORDERED: FUROSEMIDE INJ/PF 20 MG/2 ML SDV IV ONE (11:30)
--- NOTE | 2018-06-03 15:06 | RADIOLOGY REPORT (SQ) ---
EXAM DESCRIPTION: U/S CHEST COMPLETED DATE/TIME: 06/03/2018 1:03 pm REASON FOR STUDY: Quantify pleural effusion, bilateral COMPARISON: None. TECHNIQUE: Limited sonographic images of the chest to evaluate pleural effusions. LIMITATIONS: None. FINDINGS: Moderate bilateral pleural effusions. IMPRESSION: MODERATE BILATERAL PLEURAL EFFUSIONS. TECHNICAL DOCUMENTATION: JOB ID: [id number] [employer]- All Rights Reserved Reading location - IP/workstation name: [email or web address]
--- NOTE | 2018-06-03 15:46 | PDOC PROGRESS REPORT ---
Subjective Progress Note for:: 06/03/18 Subjective:: Blood culture is no growth x 5 days. Remain on IV Vancomycin, Gentamycin and Zosyn coverage along with IV Diflucan therapy. No fever. Breathing still overriding vent setting during attempt at weaning today. Tolerating enteral tube feeding. Reason For Visit: ADMIT TO ICU FOR PNA AND SEPSIS Physical Exam Vital Signs: Temp Pulse Resp BP Pulse Ox 99.0 F 95 28 H 109/51 L 100 06/03/18 14:00 06/03/18 14:00 06/03/18 14:00 06/03/18 14:00 06/03/18 14:00 Intake & Output 06/02/18 06/03/18 06/04/18 06:59 06:59 06:59 Intake Total 3775 2697 278 Output Total 1355 2100 2545 Balance 2420 597 -2267 Weight 82.4 kg 83.4 kg Physical Exam: Intubated and vent supported with ET and OG tunes in situ. General appearance: Sedated on Midazolam infusion. Head exam: PRESENT: atraumatic, normocephalic Mouth exam: Limited due to ET and OG tubes in situ. Respiratory exam: Satisfactory air flow, clear to auscultation, Reduced breath sound bilateral basal areas Cardiovascular exam: PRESENT: irregular rhythm, +S1, +S2, tachycardia Vascular exam: PRESENT: normal capillary refill. ABSENT: pallor GI/Abdominal exam: PRESENT: normal bowel sounds, soft. ABSENT: distended, guarding, mass, organomegaly, rebound, tenderness Extremities exam: ABSENT: pedal edema Musculoskeletal exam: PRESENT: normal inspection Neurological exam: Sedated but withdraw appropriately to stimuli. Psychiatric exam: PRESENT: agitated, anxious Skin exam: PRESENT: dry, intact, warm. ABSENT: cyanosis, rash Results Laboratory Results: 06/03/18 05:00 06/03/18 05:00 06/03/18 06/03/18 06/03/18 05:00 05:00 05:00 WBC 13.7 H RBC 3.79 Hgb 8.9 L Hct 28.2 L MCV 74 L MCH 23.5 L MCHC 31.6 L RDW 19.0 H Plt Count 265 Seg Neutrophils % 78.9 H Lymphocytes % 13.6 Monocytes % 6.5 Eosinophils % 0.9 Basophils % 0.1 Absolute Neutrophils 10.8 H Absolute Lymphocytes 1.9 Absolute Monocytes 0.9 Absolute Eosinophils 0.1 Absolute Basophils 0.0 Carbonic Acid 1.07 HCO3/H2CO3 Ratio 20:1 ABG pH 7.41 ABG pCO2 35.6 ABG pO2 77.8 L ABG HCO3 21.9 ABG O2 Saturation 95.7 ABG Base Excess -2.4 FiO2 35% Sodium 141.9 Potassium 4.4 Chloride 111 H Carbon Dioxide 23 Anion Gap 8 BUN 26 H Creatinine 0.95 Est GFR ( Amer) > 60 Est GFR (Non-Af Amer) 58 L Glucose 139 H Calcium 7.8 L 05/29/18 11:23 Blood Blood Culture - Final NO GROWTH IN 5 DAYS 05/29/18 09:00 Blood Blood Culture - Final NO GROWTH IN 5 DAYS Impressions: KUB X-Ray 05/31/18 00:00 IMPRESSION: Nasogastric tube tip and side port in the stomach. Chest X-Ray 06/03/18 05:00 IMPRESSION: No significant interval change. Chest Ultrasound 06/03/18 11:30 IMPRESSION: MODERATE BILATERAL PLEURAL EFFUSIONS. Assessment & Plan - Diagnosis (1) SIRS with acute organ dysfunction due to infectious process Is this a current diagnosis for this admission?: Yes (2) Lobar pneumonia, unspecified organism Is this a current diagnosis for this admission?: Yes (3) Grecia infection, disseminated Is this a current diagnosis for this admission?: Yes (4) Anemia due to infection Is this a current diagnosis for this admission?: Yes (5) Decompensated COPD with exacerbation (chronic obstructive pulmonary disease) Is this a current diagnosis for this admission?: Yes (6) Chronic atrial fibrillation Is this a current diagnosis for this admission?: Yes (7) HTN (hypertension) Qualifiers: Hypertension type: essential hypertension Qualified Code(s): I10 - Essential (primary) hypertension Is this a current diagnosis for this admission?: Yes (8) HLD (hyperlipidemia) Qualifiers: Hyperlipidemia type: pure hypercholesterolemia Qualified Code(s): E78.00 - Pure hypercholesterolemia, unspecified Is this a current diagnosis for this admission?: Yes (9) GERD (gastroesophageal reflux disease) Qualifiers: Esophagitis presence: esophagitis presence not specified Qualified Code(s) : K21.9 - Gastro-esophageal reflux disease without esophagitis Is this a current diagnosis for this admission?: Yes (10) Anxiety Is this a current diagnosis for this admission?: Yes (11) Depression Qualifiers: Depression Type: major depressive disorder Major depression recurrence: recurrent Active/Remission status: currently active Psychotic features: without psychotic features Is this a current diagnosis for this admission?: Yes - Time Time Spent with patient: 25-34 minutes Medications reviewed and adjusted accordingly: Yes Anticipated discharge: SNF Within: Other - Inpatient Certification Based on my medical assessment, after consideration of the patient's comorbidities, presenting symptoms, or acuity I expect that the services needed warrant INPATIENT care.: Yes I certify that my determination is in accordance with my understanding of Medicare's requirements for reasonable and necessary INPATIENT services [42 CFR 412.3e].: Yes Medical Necessity: Need Close Monitoring Due to Risk of Patient Decompensation, Need For IV Fluids, Need For Continuous Telemetry Monitoring, Need for Nebulizer Therapy and Monitoring of Response, Need for IV Antibiotics, Risk of Complication if Not Cared For in Hospital Post Hospital Care: D/C or Transfer Summary - Plan Summary Plan Summary: Increase Beneprotein support to 2 packets tid via OG tube. Consider D/C Gentamycin usage. Continue all other current medication management.
[2018-06-03 16:31] LABS: ALBUMIN 2.1 g/dL (3.5-5.0); TOTAL PROTEIN 4.5 g/dL (6.3-8.2)
[2018-06-03] MEDS: VANCOMYCIN HCL 750 MG in DEXTROSE 5%-WATER 250 ML IV SCH (17:02)
[2018-06-03] MEDS: FLUCONAZOLE 200 MG/NS RTU 200 MG/100 ML RTUPB IV SCH (18:43)
[2018-06-04] MEDS: MIDAZOLAM HCL 50 MG/100 ML RTUINJ IV PRN (00:46)
[2018-06-04] MEDS: INSULIN LISPRO 100 UNIT/ML 3 ML VIAL SUBCUT SCH ×4 (00:47→18:49)
[2018-06-04] MEDS: IPRATROPIUM/ALBUTEROL 0.5-2.5 MG/3 ML AMPUL NEB SCH ×4 (01:41→20:15)
[2018-06-04] MEDS: PIPERACILLIN SODIUM/TAZOBACTAM 3.375 GM in NORMAL SALINE 100 ML IV SCH ×2 (02:17→22:35)
[2018-06-04] MEDS: OXYCODONE-ACETAMINOPHEN 5-325 MG TABLET NG PRN ×3 (03:34→17:26)
[2018-06-04] MEDS: NORMAL SALINE 1000 ML 1,000 ML IV PRN (03:34)
[2018-06-04] MEDS: GABAPENTIN 400 MG CAPSULE NG SCH ×3 (05:14→22:36)
[2018-06-04] MEDS: LANSOPRAZOLE 30 MG TAB.RAP.DR NG SCH (05:14)
[2018-06-04 05:42] LABS: ABSOLUTE EOSINOPHILS # (AUTO) 0.2 10^3/uL (0.0-0.6); ABSOLUTE LYMPHOCYTES (AUTO) 1.8 10^3/uL (0.5-4.7); ABSOLUTE MONOCYTES (AUTO) 0.9 10^3/uL (0.1-1.4); ABSOLUTE NEUT (AUTO) 10.3 10^3/uL (1.7-8.2); BASOPHILS % (AUTO) 0.1 % (0-2); EOSINOPHILS % (AUTO) 1.3 % (0-6); HEMATOCRIT 27.4 % (36.0-47.0); HEMOGLOBIN 8.6 g/dL (12.0-15.5); LYMPHOCYTES % (AUTO) 13.5 % (13-45); MEAN CORPUSCULAR HEMOGLOBIN 23.2 pg (27.0-33.4); MEAN CORPUSCULAR HGB CONC 31.4 g/dL (32.0-36.0); MEAN CORPUSCULAR VOLUME 74 fl (80-97); MONOCYTES % (AUTO) 6.7 % (3-13); PLATELET COUNT 250 10^3/uL (150-450); RED BLOOD COUNT 3.71 10^6/uL (3.72-5.28); RED CELL DISTRIBUTION WIDTH 19.6 % (11.5-14.0); SEGMENTED NEUTROPHILS % (AUTO) 78.4 % (42-78); TOTAL CELLS COUNTED % (AUTO) 100 %; WHITE BLOOD COUNT 13.1 10^3/uL (4.0-10.5)
[2018-06-04 06:02] LABS: ALANINE AMINOTRANSFERASE 24 U/L (9-52); ALBUMIN 2.2 g/dL (3.5-5.0); ALKALINE PHOSPHATASE 58 U/L (38-126); ANION GAP 7 (5-19); ASPARTATE AMINO TRANSFERASE 24 U/L (14-36); BILIRUBIN,DIRECT 0.3 mg/dL (0.0-0.4); BILIRUBIN,TOTAL 0.3 mg/dL (0.2-1.3); BLOOD UREA NITROGEN 26 mg/dL (7-20); CALCIUM 7.7 mg/dL (8.4-10.2); CARBON DIOXIDE 25 mmol/L (22-30); CHLORIDE 110 mmol/L (98-107); GLUCOSE 137 mg/dL (75-110); POTASSIUM 4.4 mmol/L (3.6-5.0); SODIUM 142.2 mmol/L (137-145); TOTAL PROTEIN 4.5 g/dL (6.3-8.2)
--- NOTE | 2018-06-04 08:27 | RADIOLOGY REPORT (SQ) ---
EXAM DESCRIPTION: CHEST SINGLE VIEW COMPLETED DATE/TIME: 06/04/2018 6:13 am REASON FOR STUDY: on ventilator COMPARISON: 06/03/2018 NUMBER OF VIEWS: One view. TECHNIQUE: Single frontal radiographic image of the chest acquired. LIMITATIONS: None. FINDINGS: LUNGS AND PLEURA: Diffuse airspace disease. Bilateral pleural effusions. No pneumothorax . MEDIASTINUM AND HILAR STRUCTURES: Stable heart size and mediastinal structures. HEART AND VASCULAR STRUCTURES: Stable appearance. SUPPORT DEVICES: Appropriate location without change. BONES: No acute findings. OTHER: No other significant finding. IMPRESSION: Edema or sepsis. No significant change. TECHNICAL DOCUMENTATION: JOB ID: [id number] [employer]- All Rights Reserved Reading location - IP/workstation name: [email or web address]
[2018-06-04] MEDS: DOCUSATE SODIUM 100 MG CAPSULE PO SCH ×2 (09:36→17:29)
[2018-06-04] MEDS: MULTIVITAMIN ORAL LIQUID 60 ML NG SCH (09:42)
[2018-06-04] MEDS: PREDNISONE 5 MG TABLET NG SCH (09:42)
[2018-06-04] MEDS: DIGOXIN 0.25 MG TABLET NG SCH (09:42)
[2018-06-04] MEDS: FUROSEMIDE INJ/PF 20 MG/2 ML SDV IV SCH (09:42)
[2018-06-04] MEDS: APIXABAN 5 MG TABLET NG SCH ×2 (09:43→18:48)
--- NOTE | 2018-06-04 13:22 | PROGRESS NOTE E ---
Progress Note NAME: SOHA DORSEY : 1945 AGE: 73Y DATE: 06/02/2018 ROOM: 601 SUBJECTIVE: The patient is a 73-year-old female who came in with acute respiratory failure requiring invasive mechanical ventilation, multiple pneumonia, septic shock, COPD/asthma. The patient off vasopressor, blood pressure has been stable about 90 to 100 mmHg systolic. The patient tolerated the OG tube feeding. There is no vomiting or diarrhea noted. No fever spikes in the last 24 hours. Endotracheal tube secretions were minimal. The patient failed the spontaneous breathing trial this morning. OBJECTIVE: EYES: No jaundice or pallor. EARS, NOSE, AND THROAT: No ear drainage noted. No nasal discharge. HEAD AND NECK: No scalp swelling or tenderness. Neck is supple. LUNGS: No wheezing, no rhonchi, no coarse crackles. CARDIOVASCULAR: S1, S2 distinct. Normal rate, regular rhythm. ABDOMEN: Flabby, positive bowel sounds, soft, nondistended. EXTREMITIES: No joint swelling, no cellulitis. LABORATORY DATA: CBC done today showed white count of 15.8 up from 12.1 yesterday, hemoglobin is 9, hematocrit is 28.2, and platelet count is 216. Chemistry done today showed sodium 142, potassium 4, chloride 113, CO2 is 20, BUN is 29, creatinine is 1.02, glucose is 53, and blood sugar is 159 mg/dL. IMAGING STUDIES: Chest x-ray showed no new infiltrates. Endotracheal tube is about 1 cm above the jenny. Instructed the respiratory therapy to pull out the tube by 2 cm and perform the chest x-ray after the endotracheal tube needs to be drawn by 2 cm. ASSESSMENT: 1. Acute respiratory failure requiring invasive mechanical ventilation. - not ready to be extubated. Failed spontaneous breathing trial. 2. Pneumonia, bilateral, multi-lobar. - appeared improving. 3. Urosepsis 4. Pleural effusion, most likely related to CHF. 5. Atrial fibrillation, currently rate controlled. PLAN: 1. continue IV Vancomycin and IV zosyn an dIV gentamicin. 2. sedation vacation and spontaneous breathing trial every morning. 3. Will continue to optimize nutritional and ventilator support. DICTATING PHYSICIAN: ML MARQUIS MD,JACQUIE,MPH [id number] PHY#: [id number] ID: [id number] JOB#: [id number] ACCT: [id number] cc: > RACHEL
--- NOTE | 2018-06-04 13:23 | PROGRESS NOTE E ---
Progress Note NAME: SOHA DORSEY : 1945 AGE: 73Y DATE: 06/03/2018 ROOM: 601 SUBJECTIVE: The patient is a 73-year-old female who came in with acute respiratory failure, septic shock, multilobar pneumonia, MRSA pneumoniae, and COPD/asthma. The patient tolerated the NG tube feeding. Patient failed the spontaneous breathing trial today, after off Versed and after waking up. The patient's heart rate goes up to more than 100 beats per minute. The patient's respiratory rate went up to 33 breaths per minute. Blood pressure has been stable without any IV vasopressors, running about 110-120 systolic. There are no fever spikes overnight. There is no vomiting and no diarrhea. Afebrile, slightly tachypneic while on the spontaneous breathing trial. OBJECTIVE: VITAL SIGNS: Temperature is 98.2 with a T-max of 98.2, heart rate is 114, blood pressure is 105/46, respiratory rate is about 33 on SIV rate of 18 and tidal volume 400, pressure support of 10, PEEP of 5, FIO2 of 40%. EYES: No jaundice or pallor. EARS, NOSE, THROAT: No ear drainage. No nasal discharge. HEAD AND NECK: No scalp swelling or tenderness. Neck is supple. CHEST AND LUNGS: No wheezing, no rhonchi, no coarse crackles. CARDIOVASCULAR: S1, S2 distinct. Normal rate, regular rhythm. ABDOMEN: Flabby, positive bowel sounds, soft, nondistended. EXTREMITIES: No joint swelling, no cellulitis. LABORATORY: CBC today showed a white count of 13.7, down from 15.8. Hemoglobin is 8.9, hematocrit is 38.2, and platelet count is 265. No bands noted. ABG done this morning showed a pH of 7.41, pCO2 of 25.6, PO2 is 77.8. ABG oxygen saturation is 95.7. Chemistries showed a sodium of 141.7, potassium 4.4, chloride 111, carbon dioxide 23, BUN 26, creatinine 0.95, glucose 139, and calcium 7.8. IMAGING: Chest x-ray done today showed slightly increased pleural effusion, right side. Opacities in the right upper lobe appeared to be improving. Opacities in the left lower lobe appeared to be improving. No new opacities noted. ASSESSMENT: 1. ACUTE RESPIRATORY FAILURE REQUIRING INVASIVE MECHANICAL VENTILATION. *- NOT READY TO BE EXTUBATED YET. PATIENT FAILED SPONTANEOUS BREATHING TRIAL THIS MORNING. 2. PNEUMONIA, BILATERAL, AND POSSIBLY OTHER GRAM-POSITIVE OR GRAM-NEGATIVE ORGANISMS NOT DETECTED FROM THE BLOOD/ SPUTUM CULTURES. 3. URINARY TRACT INFECTION/UROSEPSIS. 4. SEPTIC SHOCK. APPEARS TO BE IMPROVING. 5. PLEURAL EFFUSION, NEW, RIGHT SIDE. PLAN AND RECOMMENDATIONS: 1. We will continue to do spontaneous breathing trial and sedation vacation every morning. 2. We will get a chest ultrasound today and ultrasound-guided thoracentesis tomorrow by Interventional Radiology. 3. We will continue antibiotics. We will continue IV Zosyn and IV gentamicin and IV vancomycin for now. The patient is not ready for narrowing the IV antibiotic coverage at this time. Continue IV Zosyn, & IV gentamicin. DICTATING PHYSICIAN: ML MARQUIS MD,JACQUIE,MPH [id number] PHY#: [id number] ID: [id number] JOB#: [id number] ACCT: [id number] cc: > MTDD
[2018-06-04] MEDS ORDERED: MIDAZOLAM HCL 50 MG/100 ML RTUINJ IV PRN (18:12)
[2018-06-04 18:32] LABS: VANCOMYCIN,TROUGH 13.8 ug/mL (5.0-20.0)
[2018-06-04] MEDS: VANCOMYCIN HCL 750 MG in DEXTROSE 5%-WATER 250 ML IV SCH (18:48)
--- NOTE | 2018-06-04 18:49 | PDOC PROGRESS REPORT ---
Subjective Progress Note for:: 06/04/18 Subjective:: Patient is tolerating weaning process so far today. No fever. Tolerating enteral tube feeding. Remain on IV Vancomycin and Zosyn coverage. Reason For Visit: ADMIT TO ICU FOR PNA AND SEPSIS Physical Exam Vital Signs: Temp Pulse Resp BP Pulse Ox 98.4 F 98 22 H 134/54 H 100 06/04/18 18:00 06/04/18 15:31 06/04/18 18:00 06/04/18 17:54 06/04/18 18:00 Intake & Output 06/03/18 06/04/18 06/05/18 06:59 06:59 06:59 Intake Total 2697 2285 140 Output Total 5532 0519 2750 Balance 787 -2770 -8874 Weight 83.4 kg 81.7 kg Physical Exam: Intubated and vent supported with ET and OG tunes in situ. General appearance: Sedated on Midazolam infusion. Head exam: PRESENT: atraumatic, normocephalic Mouth exam: Limited due to ET and OG tubes in situ. Respiratory exam: Satisfactory air flow, clear to auscultation, Reduced breath sound bilateral basal areas Cardiovascular exam: PRESENT: irregular rhythm, +S1, +S2, tachycardia Vascular exam: PRESENT: normal capillary refill. ABSENT: pallor GI/Abdominal exam: PRESENT: normal bowel sounds, soft. ABSENT: distended, guarding, mass, organomegaly, rebound, tenderness Extremities exam: ABSENT: pedal edema Musculoskeletal exam: PRESENT: normal inspection Neurological exam: Sedated but withdraw appropriately to stimuli. Psychiatric exam: PRESENT: agitated, anxious Skin exam: PRESENT: dry, intact, warm. ABSENT: cyanosis, rash Results Laboratory Results: 06/04/18 05:15 06/04/18 05:15 06/04/18 06/04/18 05:15 05:15 WBC 13.1 H RBC 3.71 L Hgb 8.6 L Hct 27.4 L MCV 74 L MCH 23.2 L MCHC 31.4 L RDW 19.6 H Plt Count 250 Seg Neutrophils % 78.4 H Lymphocytes % 13.5 Monocytes % 6.7 Eosinophils % 1.3 Basophils % 0.1 Absolute Neutrophils 10.3 H Absolute Lymphocytes 1.8 Absolute Monocytes 0.9 Absolute Eosinophils 0.2 Absolute Basophils 0.0 Sodium 142.2 Potassium 4.4 Chloride 110 H Carbon Dioxide 25 Anion Gap 7 BUN 26 H Creatinine 0.92 Est GFR ( Amer) > 60 Est GFR (Non-Af Amer) > 60 Glucose 137 H Calcium 7.7 L Total Bilirubin 0.3 AST 24 ALT 24 Alkaline Phosphatase 58 Total Protein 4.5 L Albumin 2.2 L Impressions: KUB X-Ray 05/31/18 00:00 IMPRESSION: Nasogastric tube tip and side port in the stomach. Chest Ultrasound 06/03/18 11:30 IMPRESSION: MODERATE BILATERAL PLEURAL EFFUSIONS. Chest X-Ray 06/04/18 05:00 IMPRESSION: Edema or sepsis. No significant change. Assessment & Plan - Diagnosis (1) SIRS with acute organ dysfunction due to infectious process Is this a current diagnosis for this admission?: Yes (2) Lobar pneumonia, unspecified organism Is this a current diagnosis for this admission?: Yes (3) Grecia infection, disseminated Is this a current diagnosis for this admission?: Yes (4) Anemia due to infection Is this a current diagnosis for this admission?: Yes (5) Decompensated COPD with exacerbation (chronic obstructive pulmonary disease) Is this a current diagnosis for this admission?: Yes (6) Chronic atrial fibrillation Is this a current diagnosis for this admission?: Yes (7) HTN (hypertension) Qualifiers: Hypertension type: essential hypertension Qualified Code(s): I10 - Essential (primary) hypertension Is this a current diagnosis for this admission?: Yes (8) HLD (hyperlipidemia) Qualifiers: Hyperlipidemia type: pure hypercholesterolemia Qualified Code(s): E78.00 - Pure hypercholesterolemia, unspecified Is this a current diagnosis for this admission?: Yes (9) GERD (gastroesophageal reflux disease) Qualifiers: Esophagitis presence: esophagitis presence not specified Qualified Code(s) : K21.9 - Gastro-esophageal reflux disease without esophagitis Is this a current diagnosis for this admission?: Yes (10) Anxiety Is this a current diagnosis for this admission?: Yes (11) Depression Qualifiers: Depression Type: major depressive disorder Major depression recurrence: recurrent Active/Remission status: currently active Psychotic features: without psychotic features Is this a current diagnosis for this admission?: Yes - Time Time Spent with patient: 25-34 minutes Medications reviewed and adjusted accordingly: Yes Anticipated discharge: SNF Within: Other - Inpatient Certification Based on my medical assessment, after consideration of the patient's comorbidities, presenting symptoms, or acuity I expect that the services needed warrant INPATIENT care.: Yes I certify that my determination is in accordance with my understanding of Medicare's requirements for reasonable and necessary INPATIENT services [42 CFR 412.3e].: Yes Medical Necessity: Need Close Monitoring Due to Risk of Patient Decompensation, Need For IV Fluids, Need For Continuous Telemetry Monitoring, Need for Nebulizer Therapy and Monitoring of Response, Need for IV Antibiotics, Risk of Complication if Not Cared For in Hospital Post Hospital Care: D/C or Transfer Summary - Plan Summary Plan Summary: See attending physician orders.
[2018-06-04] MEDS ORDERED: FUROSEMIDE INJ/PF 20 MG/2 ML SDV IV ONE (19:30)
[2018-06-04] MEDS: FLUCONAZOLE 200 MG/NS RTU 200 MG/100 ML RTUPB IV SCH (20:09)
[2018-06-04] MEDS ORDERED: PIPERACILLIN/TAZOBACTAM 3.375 GM VIAL IV SCH (22:00)
--- NOTE | 2018-06-05 00:20 | PROGRESS NOTE E ---
Progress Note NAME: SOHA DORSEY : 1945 AGE: 73Y DATE: 06/04/2018 ROOM: 601 SUBJECTIVE: The patient is a 73-year-old female who came in with acute respiratory failure requiring invasive mechanical ventilation, pulmonary pneumonia bilateral multifocal, pulmonary edema, pleural effusion, atrial fibrillation, history of rapid ventricular response. The patient appears to be doing well. The patient is off sedation since this morning and appeared to be more awake. Tried a spontaneous breathing trial around noontime today, but the patient failed. The patient's inspiratory tidal volume was above 200 mL. Tonight, when the patient was fully awake and off sedation since this morning, the patient did a spontaneous breathing trial and appeared to be doing well. Will re-sedate the patient again tonight and plan to wean off the sedation account manager around 3:00 or 4:00 a.m., and perform the spontaneous breathing trial in the morning when the patient is fully awake. Has scanty to mild endotracheal tube secretions. No vomiting, no diarrhea. Tolerating OG tube feedings. Tonight, the patient appeared more awake, afebrile, not in respiratory distress. OBJECTIVE: VITAL SIGNS: Temperature 98.1, T-max 98.8, blood pressure 134/54, respirations 22, saturation 100% on 30% FiO2, pressor support 10, PEEP of 5, tidal volume 400. SIMV rate 18. EYES: No jaundice or pallor. EARS, NOSE, THROAT: No ear drainage or nasal discharge. HEAD AND NECK: No scalp tenderness. Neck supple. CHEST AND LUNGS: No wheezing, no rhonchi, no coarse crackles. CARDIOVASCULAR: S1, S2 distinct. Normal rate. ABDOMEN: Flabby. Positive bowel sounds. Soft, nondistended, nontender. EXTREMITIES: No joint swelling. No cellulitis. LABORATORY: CBC done today shows white count of 13.1, down from 13.7 yesterday. Hemoglobin 8.6, hematocrit 27.4. Platelet count 250. Chemistry done today showed sodium 142, potassium 4.4, chloride 110, CO2 of 35, BUN 26, creatinine 0.92. Glucose 120. Calcium 7.7. Chest x-ray done today showed endotracheal tube in place. Small bilateral effusion, mild to moderate. Chest x-ray findings remain the same. No significant change per radiology report. ASSESSMENT: 1. ACUTE RESPIRATORY FAILURE REQUIRING INVASIVE MECHANICAL VENTILATION. Appears to be improving. 2. PNEUMONIA BILATERAL. Also appears to be improving. Chest x-ray showed resolving opacities. 3. BILATERAL PLEURAL EFFUSIONS. Mild to moderate. Most likely due to congestive heart failure. PLAN: 1. Trial the patient on Eliquis. Will plan to diurese the patient. May consider thoracentesis if pleural effusions worsen. May consider holding the Eliquis if thoracentesis is needed. 2. Continue intravenous vancomycin, intravenous Zosyn. Hold intravenous gentamicin for now. The patient completed one week of intravenous gentamicin. 3. Will continue to optimize ventilator support. Reduce the patient's medication again tomorrow and do a spontaneous breathing trial. Will plan to hold intravenous sedation early in the morning at 3:00 or 4:00. Instructed the patient's nurse to administer intravenous Versed at 1 mg/hour or lower. Will do a CBC, chemistry, and chest x-ray tomorrow. DICTATING PHYSICIAN: ML MARQUIS MD,JACQUIE,MPH [id number] PHY#: [id number] ID: [id number] JOB#: [id number] ACCT: [id number] cc: > MTDD
[2018-06-05] MEDS: INSULIN LISPRO 100 UNIT/ML 3 ML VIAL SUBCUT SCH ×4 (01:10→20:04)
[2018-06-05] MEDS: IPRATROPIUM/ALBUTEROL 0.5-2.5 MG/3 ML AMPUL NEB SCH ×4 (01:17→20:46)
[2018-06-05] MEDS: PIPERACILLIN SODIUM/TAZOBACTAM 3.375 GM in NORMAL SALINE 100 ML IV SCH ×4 (04:03→23:07)
[2018-06-05] MEDS: OXYCODONE-ACETAMINOPHEN 5-325 MG TABLET NG PRN (04:04)
[2018-06-05] MEDS: GABAPENTIN 400 MG CAPSULE NG SCH ×2 (06:15→13:17)
[2018-06-05] MEDS: NORMAL SALINE 1000 ML 1,000 ML IV PRN (06:23)
[2018-06-05 06:28] LABS: ABSOLUTE EOSINOPHILS # (AUTO) 0.2 10^3/uL (0.0-0.6); ABSOLUTE LYMPHOCYTES (AUTO) 1.5 10^3/uL (0.5-4.7); ABSOLUTE MONOCYTES (AUTO) 0.9 10^3/uL (0.1-1.4); ABSOLUTE NEUT (AUTO) 8.4 10^3/uL (1.7-8.2); BASOPHILS % (AUTO) 0.4 % (0-2); EOSINOPHILS % (AUTO) 1.5 % (0-6); HEMATOCRIT 26.3 % (36.0-47.0); HEMOGLOBIN 8.5 g/dL (12.0-15.5); LYMPHOCYTES % (AUTO) 13.8 % (13-45); MEAN CORPUSCULAR HEMOGLOBIN 23.8 pg (27.0-33.4); MEAN CORPUSCULAR HGB CONC 32.2 g/dL (32.0-36.0); MEAN CORPUSCULAR VOLUME 74 fl (80-97); MONOCYTES % (AUTO) 7.7 % (3-13); PLATELET COUNT 258 10^3/uL (150-450); RED BLOOD COUNT 3.57 10^6/uL (3.72-5.28); RED CELL DISTRIBUTION WIDTH 20.3 % (11.5-14.0); SEGMENTED NEUTROPHILS % (AUTO) 76.6 % (42-78); TOTAL CELLS COUNTED % (AUTO) 100 %
[2018-06-05 06:55] LABS: ALANINE AMINOTRANSFERASE 29 U/L (9-52); ALBUMIN 2.2 g/dL (3.5-5.0); ALKALINE PHOSPHATASE 60 U/L (38-126); ANION GAP 8 (5-19); ASPARTATE AMINO TRANSFERASE 33 U/L (14-36); BILIRUBIN,DIRECT 0.3 mg/dL (0.0-0.4); BILIRUBIN,TOTAL 0.4 mg/dL (0.2-1.3); BLOOD UREA NITROGEN 23 mg/dL (7-20); CALCIUM 7.6 mg/dL (8.4-10.2); CARBON DIOXIDE 28 mmol/L (22-30); CHLORIDE 104 mmol/L (98-107); GLUCOSE 132 mg/dL (75-110); SODIUM 140.3 mmol/L (137-145); TOTAL PROTEIN 4.5 g/dL (6.3-8.2)
--- NOTE | 2018-06-05 08:47 | RADIOLOGY REPORT (SQ) ---
EXAM DESCRIPTION: CHEST SINGLE VIEW COMPLETED DATE/TIME: 06/05/2018 6:19 am REASON FOR STUDY: on ventilator COMPARISON: 06/04/2018 NUMBER OF VIEWS: One view. TECHNIQUE: Single frontal radiographic image of the chest acquired. LIMITATIONS: None. FINDINGS: LUNGS AND PLEURA: Bilateral pleural effusions and bilateral airspace disease with increasi ng airspace opacity in the right upper lobe. No pneumothorax. MEDIASTINUM AND HILAR STRUCTURES: Stable heart size and mediastinal structures. HEART AND VASCULAR STRUCTURES: Stable appearance. SUPPORT DEVICES: Appropriate location without change. BONES: No acute findings. OTHER: No other significant finding. IMPRESSION: Rehydration versus progressing pneumonia right upper lobe. No pneumothorax. TECHNICAL DOCUMENTATION: JOB ID: [id number] [id number]- All Rights Reserved Reading location - IP/workstation name: [email or web address]
[2018-06-05] MEDS: DOCUSATE SODIUM 100 MG CAPSULE PO SCH ×2 (10:07→18:30)
[2018-06-05] MEDS: PREDNISONE 5 MG TABLET NG SCH (10:15)
[2018-06-05] MEDS: DIGOXIN 0.25 MG TABLET NG SCH (10:15)
[2018-06-05] MEDS: LANSOPRAZOLE 30 MG TAB.RAP.DR NG SCH (10:15)
[2018-06-05] MEDS: APIXABAN 5 MG TABLET NG SCH ×2 (10:15→18:54)
[2018-06-05] MEDS: FUROSEMIDE INJ/PF 20 MG/2 ML SDV IV SCH (10:18)
[2018-06-05] MEDS: MULTIVITAMIN ORAL LIQUID 60 ML NG SCH (10:18)
[2018-06-05 14:54] LABS: ARTERIAL BLOOD BASE EXCESS 7.2 mmol/L; ARTERIAL BLOOD FIO2 30%; ARTERIAL BLOOD H2CO3 1.09 mmol/L (1.05-1.35); ARTERIAL BLOOD HCO3 30.1 mmol/L (20-26); ARTERIAL BLOOD O2 SATURATION 96.6 % (94-98); ARTERIAL BLOOD PCO2 36.3 mmHg (35-45); ARTERIAL BLOOD PH 7.54 (7.35-7.45); ARTERIAL BLOOD PO2 75.8 mmHg (80-100); ARTERIAL BLOOD TOTAL CO2 31.2 mmol/L (21-25)
[2018-06-05] MEDS: VANCOMYCIN HCL 750 MG in DEXTROSE 5%-WATER 250 ML IV SCH (18:46)
--- NOTE | 2018-06-05 19:04 | PDOC PROGRESS REPORT ---
Subjective Progress Note for:: 06/05/18 Subjective:: Patient is currently extubated on supplemental oxygen via oxygen tent. Breathing fairly stable. No chest pain. No abdominal pain, nausea or vomiting. Reason For Visit: ADMIT TO ICU FOR PNA AND SEPSIS Physical Exam Vital Signs: Temp Pulse Resp BP Pulse Ox 99.3 F 89 18 154/65 H 96 06/05/18 18:00 06/05/18 18:49 06/05/18 18:49 06/05/18 17:57 06/05/18 18:49 Intake & Output 06/04/18 06/05/18 06/06/18 06:59 06:59 06:59 Intake Total 2285 1784 200 Output Total 4649 2828 1310 Balance -0807 -9646 -1620 Weight 81.7 kg 78.3 kg General appearance: PRESENT: mild distress Head exam: PRESENT: atraumatic, normocephalic Eye exam: PRESENT: conjunctiva pink, EOMI, PERRLA. ABSENT: scleral icterus Mouth exam: PRESENT: moist - fairly, neck supple, tongue midline Respiratory exam: PRESENT: decreased breath sounds - at lung bases Cardiovascular exam: PRESENT: irregular rhythm, +S1, +S2 Vascular exam: PRESENT: normal capillary refill. ABSENT: pallor GI/Abdominal exam: PRESENT: normal bowel sounds, soft. ABSENT: distended, guarding, mass, organolmegaly, rebound, tenderness Extremities exam: PRESENT: pedal edema - resolving Musculoskeletal exam: PRESENT: deformity - related to multiple joints involvement with arthritis Neurological exam: PRESENT: alert, awake, oriented to person, oriented to place , oriented to time, oriented to situation, CN II-XII grossly intact. ABSENT: motor sensory deficit Psychiatric exam: PRESENT: appropriate affect, normal mood. ABSENT: homicidal ideation, suicidal ideation Skin exam: PRESENT: dry, warm Results Laboratory Results: 06/05/18 06:20 06/05/18 06:20 06/05/18 06/05/18 06/05/18 06:20 06:20 14:40 WBC 11.0 H RBC 3.57 L Hgb 8.5 L Hct 26.3 L MCV 74 L MCH 23.8 L MCHC 32.2 RDW 20.3 H Plt Count 258 Seg Neutrophils % 76.6 Lymphocytes % 13.8 Monocytes % 7.7 Eosinophils % 1.5 Basophils % 0.4 Absolute Neutrophils 8.4 H Absolute Lymphocytes 1.5 Absolute Monocytes 0.9 Absolute Eosinophils 0.2 Absolute Basophils 0.0 Carbonic Acid 1.09 HCO3/H2CO3 Ratio 27:1 ABG pH 7.54 H ABG pCO2 36.3 ABG pO2 75.8 L ABG HCO3 30.1 H ABG O2 Saturation 96.6 ABG Base Excess 7.2 FiO2 30% Sodium 140.3 Potassium 4.0 Chloride 104 Carbon Dioxide 28 Anion Gap 8 BUN 23 H Creatinine 0.82 Est GFR ( Amer) > 60 Est GFR (Non-Af Amer) > 60 Glucose 132 H Calcium 7.6 L Magnesium 1.9 Total Bilirubin 0.4 AST 33 ALT 29 Alkaline Phosphatase 60 Total Protein 4.5 L Albumin 2.2 L Impressions: KUB X-Ray 05/31/18 00:00 IMPRESSION: Nasogastric tube tip and side port in the stomach. Chest Ultrasound 06/03/18 11:30 IMPRESSION: MODERATE BILATERAL PLEURAL EFFUSIONS. Chest X-Ray 06/05/18 05:00 IMPRESSION: Rehydration versus progressing pneumonia right upper lobe. No pneumothorax. Assessment & Plan - Diagnosis (1) SIRS with acute organ dysfunction due to infectious process Is this a current diagnosis for this admission?: Yes (2) Lobar pneumonia, unspecified organism Is this a current diagnosis for this admission?: Yes (3) Grecia infection, disseminated Is this a current diagnosis for this admission?: Yes (4) Anemia due to infection Is this a current diagnosis for this admission?: Yes (5) Decompensated COPD with exacerbation (chronic obstructive pulmonary disease) Is this a current diagnosis for this admission?: Yes (6) Chronic atrial fibrillation Is this a current diagnosis for this admission?: Yes (7) HTN (hypertension) Qualifiers: Hypertension type: essential hypertension Qualified Code(s): I10 - Essential (primary) hypertension Is this a current diagnosis for this admission?: Yes (8) HLD (hyperlipidemia) Qualifiers: Hyperlipidemia type: pure hypercholesterolemia Qualified Code(s): E78.00 - Pure hypercholesterolemia, unspecified Is this a current diagnosis for this admission?: Yes (9) GERD (gastroesophageal reflux disease) Qualifiers: Esophagitis presence: esophagitis presence not specified Qualified Code(s) : K21.9 - Gastro-esophageal reflux disease without esophagitis Is this a current diagnosis for this admission?: Yes (10) Anxiety Is this a current diagnosis for this admission?: Yes (11) Depression Qualifiers: Depression Type: major depressive disorder Major depression recurrence: recurrent Active/Remission status: currently active Psychotic features: without psychotic features Is this a current diagnosis for this admission?: Yes - Time Time Spent with patient: 25-34 minutes Medications reviewed and adjusted accordingly: Yes Anticipated discharge: SNF Within: Other - Inpatient Certification Based on my medical assessment, after consideration of the patient's comorbidities, presenting symptoms, or acuity I expect that the services needed warrant INPATIENT care.: Yes I certify that my determination is in accordance with my understanding of Medicare's requirements for reasonable and necessary INPATIENT services [42 CFR 412.3e].: Yes Medical Necessity: Need Close Monitoring Due to Risk of Patient Decompensation, Need For IV Fluids, Need For Continuous Telemetry Monitoring, Need for Nebulizer Therapy and Monitoring of Response, Need for IV Antibiotics, Risk of Complication if Not Cared For in Hospital Post Hospital Care: D/C or Transfer Summary - Plan Summary Plan Summary: Contiue IV Vancomycin and Zosyn coverage. Maintain on IV Diflucan coverage. Hold oral medication until tomorrow. Patient will receive therapeutic dose of Lovenox until resumption of Eliquis therapy.
[2018-06-05] MEDS ORDERED: ENOXAPARIN SODIUM INJ 80 MG/0.8 ML DISP.SYRIN SUBCUT ONE (21:00)
[2018-06-05] MEDS: FLUCONAZOLE 200 MG/NS RTU 200 MG/100 ML RTUPB IV SCH (21:54)
--- NOTE | 2018-06-05 23:50 | PROGRESS NOTE E ---
Progress Note NAME: SOHA DORSEY : 1945 AGE: 73Y DATE: 06/05/2018 ROOM: 601 SUBJECTIVE: The patient is a 73-year-old female who came in with acute respiratory failure requiring invasive mechanical ventilation, pneumonia multilobar bilateral, severe sepsis/septic shock, MRSA pneumonia, history of congestive heart failure, history of atrial fibrillation, and history of bilateral pleural effusions. The patient was weaned off sedation this morning around 4 or 5 a.m. with IV Versed and the patient was placed on spontaneous breathing trial around 8:30. At 12:30 p.m. spontaneous breathing trial was attempted but patient still weak and still slightly sedated. The patient was placed back on ventilator rate of 18 and spontaneous breathing trial was eventually performed around 5:30 when patient was already fully awake. The patient tolerated the spontaneous breathing trial. The patient was extubated and the patient was subsequently was placed on a facemask BiPAP therapy on standby at 12/6. Has scanty endotracheal tube secretions. OG tube was withheld when the sedation was off. The patient was tolerating the OG tube feeding last night. No vomiting, no diarrhea. No fever spike. OBJECTIVE: GENERAL: The patient appeared awake, coherent, oriented x3. Not in apparent respiratory distress. VITAL SIGNS: Temperature of 98.8 and a T-max of 99.3. Heart rate of 89, respiratory rate of 18, saturation is 96% on 40% FiO2 placement. EYES: No jaundice or pallor. EARS, NOSE, AND THROAT: No ear drainage noted. No nasal discharge. HEAD AND NECK: No scalp swelling or neck tenderness. CHEST AND LUNGS: No wheezing, no rhonchi, no coarse crackles. CARDIOVASCULAR: S1, S2 is distinct. Normal rate, regular rhythm. ABDOMEN: Flabby, positive bowel sounds, soft, nondistended, nontender. EXTREMITIES: No joint swelling and no cellulitis. LABORATORY DATA: CBC done today shows white count 11,000 from 13.1 with a hemoglobin of 8.5, hematocrit is 26.3, and platelet count is 258. ABG done at 2:40 p.m. during the spontaneous breathing trial showed pH of 7.54, pCO2 of 36.3, CO2 is 25.8, and ABG oxygen saturation is 96.6. Chemistry done today shows sodium 140, potassium 4, chloride 104, CO2 is 28, BUN 23, creatinine 0.82, glucose is 129, calcium is 7.6, magnesium is 1.9, albumin is 2.2, and total protein is 4.5. Chest x-ray done today showed endotracheal tube is in place about 2-3 cm above the jenny. There is bilateral pleural effusion but most likely mild on chest x-ray. There are no new infiltrates. There is no pneumothorax. ASSESSMENT: 1. ACUTE RESPIRATORY FAILURE REQUIRING INVASIVE MECHANICAL VENTILATION. The patient appeared to be tolerating the spontaneous breathing trial this morning. The patient was eventually extubated this afternoon at 5:30 p.m. 2. PNEUMONIA, BILATERAL, MULTILOBAR. Appeared to be improving. 3. PLEURAL EFFUSION, BILATERAL. Appeared to be improving, appeared to be stable, mild to moderate. 4. MRSA PNEUMONIA. PLAN/RECOMMENDATION: 1. Continue IV vancomycin for another week, recommend to continue the Zosyn IV also for another week. 2. Continue the DVT and GI prophylaxis. 3. We will repeat the CBC and chemistry tomorrow. 4. We may consider placing patient on BiPAP / if patient becomes tachypneic. 5. We will sign off tonight. If you have any questions please feel free to call me. DICTATING PHYSICIAN: ML MARQUIS MD,JACQUIE,MPH [id number] PHY#: [id number] ID: [id number] JOB#: [id number] ACCT: [id number] cc: > [facility]
[2018-06-06] MEDS: INSULIN LISPRO 100 UNIT/ML 3 ML VIAL SUBCUT SCH ×4 (00:48→17:57)
[2018-06-06] MEDS: IPRATROPIUM/ALBUTEROL 0.5-2.5 MG/3 ML AMPUL NEB SCH ×4 (01:38→20:16)
[2018-06-06] MEDS: GABAPENTIN 400 MG CAPSULE NG SCH ×4 (02:33→21:00)
[2018-06-06] MEDS: PIPERACILLIN SODIUM/TAZOBACTAM 3.375 GM in NORMAL SALINE 100 ML IV SCH ×4 (03:38→20:59)
[2018-06-06] MEDS: NORMAL SALINE 1000 ML 1,000 ML IV PRN (05:17)
[2018-06-06 05:53] LABS: ABSOLUTE EOSINOPHILS # (AUTO) 0.2 10^3/uL (0.0-0.6); ABSOLUTE LYMPHOCYTES (AUTO) 1.3 10^3/uL (0.5-4.7); ABSOLUTE MONOCYTES (AUTO) 0.9 10^3/uL (0.1-1.4); ABSOLUTE NEUT (AUTO) 8.8 10^3/uL (1.7-8.2); BASOPHILS % (AUTO) 0.4 % (0-2); EOSINOPHILS % (AUTO) 1.4 % (0-6); HEMATOCRIT 27.5 % (36.0-47.0); HEMOGLOBIN 8.7 g/dL (12.0-15.5); LYMPHOCYTES % (AUTO) 11.5 % (13-45); MEAN CORPUSCULAR HEMOGLOBIN 23.7 pg (27.0-33.4); MEAN CORPUSCULAR HGB CONC 31.6 g/dL (32.0-36.0); MEAN CORPUSCULAR VOLUME 75 fl (80-97); MONOCYTES % (AUTO) 8.2 % (3-13); PLATELET COUNT 270 10^3/uL (150-450); RED BLOOD COUNT 3.68 10^6/uL (3.72-5.28); RED CELL DISTRIBUTION WIDTH 20.4 % (11.5-14.0); SEGMENTED NEUTROPHILS % (AUTO) 78.5 % (42-78); TOTAL CELLS COUNTED % (AUTO) 100 %; WHITE BLOOD COUNT 11.2 10^3/uL (4.0-10.5)
[2018-06-06 06:15] LABS: ANION GAP 8 (5-19); BLOOD UREA NITROGEN 16 mg/dL (7-20); CALCIUM 7.7 mg/dL (8.4-10.2); CARBON DIOXIDE 32 mmol/L (22-30); CHLORIDE 101 mmol/L (98-107); GLUCOSE 107 mg/dL (75-110); POTASSIUM 3.7 mmol/L (3.6-5.0); SODIUM 141.2 mmol/L (137-145)
[2018-06-06] MEDS: LANSOPRAZOLE 30 MG TAB.RAP.DR NG SCH (06:29)
[2018-06-06] MEDS ORDERED: VALSARTAN 160 MG TABLET PO SCH (10:00)
[2018-06-06] MEDS: APIXABAN 5 MG TABLET NG SCH ×2 (11:03→17:57)
[2018-06-06] MEDS: FUROSEMIDE INJ/PF 20 MG/2 ML SDV IV SCH (11:04)
[2018-06-06] MEDS: MULTIVITAMIN ORAL LIQUID 60 ML NG SCH (11:04)
[2018-06-06] MEDS: PREDNISONE 5 MG TABLET NG SCH (11:04)
[2018-06-06] MEDS: DIGOXIN 0.25 MG TABLET NG SCH (11:04)
[2018-06-06] MEDS: DOCUSATE SODIUM 100 MG CAPSULE PO SCH ×2 (11:05→17:58)
[2018-06-06] MEDS: VANCOMYCIN HCL 750 MG in DEXTROSE 5%-WATER 250 ML IV SCH (17:57)
--- NOTE | 2018-06-06 18:30 | PDOC PROGRESS REPORT ---
Subjective Progress Note for:: 06/06/18 Subjective:: Patient is awake and appropriate in responses. s/p extubation and remain on supplemental oxygen via nasal cannula. No chest pain. No fever or chills. Remain NPO until swallow assessment is completed. Reason For Visit: ADMIT TO ICU FOR PNA AND SEPSIS Physical Exam Vital Signs: Temp Pulse Resp BP Pulse Ox 98.6 F 85 18 158/68 H 98 06/06/18 08:00 06/06/18 08:15 06/06/18 08:15 06/06/18 08:00 06/06/18 08:15 Intake & Output 06/05/18 06/06/18 06/07/18 06:59 06:59 06:59 Intake Total 1784 1089 Output Total 5380 4205 375 Balance -3596 -3116 -375 Weight 78.3 kg 75.3 kg General appearance: PRESENT: no acute distress, mild distress Head exam: PRESENT: atraumatic, normocephalic Eye exam: PRESENT: conjunctiva pink, EOMI, PERRLA. ABSENT: scleral icterus Ear exam: PRESENT: normal external ear exam Mouth exam: PRESENT: moist, neck supple, tongue midline Respiratory exam: PRESENT: crackles - scattered, decreased breath sounds - at lung bases, rhonchi - expiratory phase bilaterally, wheezes - minimally audible Cardiovascular exam: PRESENT: irregular rhythm, +S1, +S2. ABSENT: diastolic murmur, systolic murmur Vascular exam: PRESENT: normal capillary refill. ABSENT: pallor GI/Abdominal exam: PRESENT: normal bowel sounds, soft. ABSENT: distended, guarding, mass, organolmegaly, rebound, tenderness Extremities exam: PRESENT: pedal edema - resolving Musculoskeletal exam: PRESENT: deformity - related to multiple joints involvement with arthritis Neurological exam: PRESENT: alert, awake, oriented to person, oriented to place , oriented to time, oriented to situation, CN II-XII grossly intact. ABSENT: motor sensory deficit Psychiatric exam: PRESENT: appropriate affect, normal mood. ABSENT: homicidal ideation, suicidal ideation Skin exam: PRESENT: dry, warm Results Laboratory Results: 06/06/18 05:25 06/06/18 05:25 06/05/18 06/06/18 06/06/18 14:40 05:25 05:25 WBC 11.2 H RBC 3.68 L Hgb 8.7 L Hct 27.5 L MCV 75 L MCH 23.7 L MCHC 31.6 L RDW 20.4 H Plt Count 270 Seg Neutrophils % 78.5 H Lymphocytes % 11.5 L Monocytes % 8.2 Eosinophils % 1.4 Basophils % 0.4 Absolute Neutrophils 8.8 H Absolute Lymphocytes 1.3 Absolute Monocytes 0.9 Absolute Eosinophils 0.2 Absolute Basophils 0.0 Carbonic Acid 1.09 HCO3/H2CO3 Ratio 27:1 ABG pH 7.54 H ABG pCO2 36.3 ABG pO2 75.8 L ABG HCO3 30.1 H ABG O2 Saturation 96.6 ABG Base Excess 7.2 FiO2 30% Sodium 141.2 Potassium 3.7 Chloride 101 Carbon Dioxide 32 H Anion Gap 8 BUN 16 Creatinine 0.71 Est GFR ( Amer) > 60 Est GFR (Non-Af Amer) > 60 Glucose 107 Calcium 7.7 L Impressions: KUB X-Ray 05/31/18 00:00 IMPRESSION: Nasogastric tube tip and side port in the stomach. Chest Ultrasound 06/03/18 11:30 IMPRESSION: MODERATE BILATERAL PLEURAL EFFUSIONS. Chest X-Ray 06/05/18 05:00 IMPRESSION: Rehydration versus progressing pneumonia right upper lobe. No pneumothorax. Assessment & Plan - Diagnosis (1) SIRS with acute organ dysfunction due to infectious process Is this a current diagnosis for this admission?: Yes (2) Lobar pneumonia, unspecified organism Is this a current diagnosis for this admission?: Yes (3) Grecia infection, disseminated Is this a current diagnosis for this admission?: Yes (4) Anemia due to infection Is this a current diagnosis for this admission?: Yes (5) Decompensated COPD with exacerbation (chronic obstructive pulmonary disease) Is this a current diagnosis for this admission?: Yes (6) Chronic atrial fibrillation Is this a current diagnosis for this admission?: Yes (7) HTN (hypertension) Qualifiers: Hypertension type: essential hypertension Qualified Code(s): I10 - Essential (primary) hypertension Is this a current diagnosis for this admission?: Yes (8) HLD (hyperlipidemia) Qualifiers: Hyperlipidemia type: pure hypercholesterolemia Qualified Code(s): E78.00 - Pure hypercholesterolemia, unspecified Is this a current diagnosis for this admission?: Yes (9) GERD (gastroesophageal reflux disease) Qualifiers: Esophagitis presence: esophagitis presence not specified Qualified Code(s) : K21.9 - Gastro-esophageal reflux disease without esophagitis Is this a current diagnosis for this admission?: Yes (10) Anxiety Is this a current diagnosis for this admission?: Yes (11) Depression Qualifiers: Depression Type: major depressive disorder Major depression recurrence: recurrent Active/Remission status: currently active Psychotic features: without psychotic features Is this a current diagnosis for this admission?: Yes - Time Time Spent with patient: 25-34 minutes Medications reviewed and adjusted accordingly: Yes Anticipated discharge: SNF Within: Other - Inpatient Certification Based on my medical assessment, after consideration of the patient's comorbidities, presenting symptoms, or acuity I expect that the services needed warrant INPATIENT care.: Yes I certify that my determination is in accordance with my understanding of Medicare's requirements for reasonable and necessary INPATIENT services [42 CFR 412.3e].: Yes Medical Necessity: Need Close Monitoring Due to Risk of Patient Decompensation, Need For IV Fluids, Need For Continuous Telemetry Monitoring, Need for Nebulizer Therapy and Monitoring of Response, Need for IV Antibiotics, Risk of Complication if Not Cared For in Hospital Post Hospital Care: D/C or Transfer Summary - Plan Summary Plan Summary: Continue current medication management. Restart on Valsartan for blood pressure management. Follow up on swallowing assessment and start on clear liquid with aspiration precautions. Continue IV Vancomycin and Zosyn coverage. Obtain PT / OT evaluation.
[2018-06-06] MEDS: FLUCONAZOLE 200 MG/NS RTU 200 MG/100 ML RTUPB IV SCH (19:44)
[2018-06-07] MEDS: IPRATROPIUM/ALBUTEROL 0.5-2.5 MG/3 ML AMPUL NEB SCH ×4 (01:17→20:12)
[2018-06-07] MEDS: INSULIN LISPRO 100 UNIT/ML 3 ML VIAL SUBCUT SCH ×4 (01:47→18:08)
[2018-06-07] MEDS: PIPERACILLIN SODIUM/TAZOBACTAM 3.375 GM in NORMAL SALINE 100 ML IV SCH ×4 (02:00→22:37)
[2018-06-07] MEDS: GABAPENTIN 400 MG CAPSULE NG SCH ×3 (05:11→21:22)
[2018-06-07] MEDS: LANSOPRAZOLE 30 MG TAB.RAP.DR NG SCH (05:12)
[2018-06-07 06:13] LABS: ANION GAP 9 (5-19); BLOOD UREA NITROGEN 11 mg/dL (7-20); CALCIUM 7.9 mg/dL (8.4-10.2); CARBON DIOXIDE 33 mmol/L (22-30); CHLORIDE 98 mmol/L (98-107); GLUCOSE 102 mg/dL (75-110); SODIUM 140.2 mmol/L (137-145)
[2018-06-07] MEDS ORDERED: POTASSI CL 20 MEQ/50 ML RIDER 20 MEQ/50 ML RTUPB IV SCH (08:09)
--- NOTE | 2018-06-07 08:19 | PDOC PROGRESS REPORT ---
Subjective Progress Note for:: 06/07/18 Subjective:: No chest pain. Remain on supplemental oxygen via nasal cannula. No abdominal pain, fever or chills. Tolerating clear liquid diet without any aspiration episode. Reason For Visit: ADMIT TO ICU FOR PNA AND SEPSIS Physical Exam Vital Signs: Temp Pulse Resp BP Pulse Ox 98.8 F 63 23 H 157/78 H 99 06/07/18 07:46 06/07/18 01:20 06/07/18 07:46 06/07/18 07:46 06/07/18 07:46 Intake & Output 06/06/18 06/07/18 06/08/18 06:59 06:59 06:59 Intake Total 1189 2043 Output Total 4205 4310 Balance -3016 -2577 Weight 75.3 kg 69.8 kg Physical Exam: General appearance: PRESENT: no acute distress, mild distress Head exam: PRESENT: atraumatic, normocephalic Eye exam: PRESENT: conjunctiva pink, EOMI, PERRLA. ABSENT: scleral icterus Ear exam: PRESENT: normal external ear exam Mouth exam: PRESENT: moist, neck supple, tongue midline Respiratory exam: PRESENT: decreased breath sounds - at lung bases, rhonchi - expiratory phase bilaterally, wheezes - minimally audible Cardiovascular exam: PRESENT: irregular rhythm, +S1, +S2. ABSENT: diastolic murmur, systolic murmur Vascular exam: PRESENT: normal capillary refill. ABSENT: pallor GI/Abdominal exam: PRESENT: normal bowel sounds, soft. ABSENT: distended, guarding, mass, organomegaly, rebound, tenderness Extremities exam: PRESENT: pedal edema - resolving Musculoskeletal exam: PRESENT: deformity - related to multiple joints involvement with arthritis Neurological exam: PRESENT: alert, awake, oriented to person, oriented to place , oriented to time, oriented to situation, CN II-XII grossly intact. ABSENT: motor sensory deficit Psychiatric exam: PRESENT: appropriate affect, normal mood. ABSENT: homicidal ideation, suicidal ideation Skin exam: PRESENT: dry, warm Results Laboratory Results: 06/06/18 05:25 06/07/18 05:33 06/07/18 05:33 Sodium 140.2 Potassium 3.0 L* Chloride 98 Carbon Dioxide 33 H Anion Gap 9 BUN 11 Creatinine 0.72 Est GFR ( Amer) > 60 Est GFR (Non-Af Amer) > 60 Glucose 102 Calcium 7.9 L Impressions: KUB X-Ray 05/31/18 00:00 IMPRESSION: Nasogastric tube tip and side port in the stomach. Chest Ultrasound 06/03/18 11:30 IMPRESSION: MODERATE BILATERAL PLEURAL EFFUSIONS. Chest X-Ray 06/05/18 05:00 IMPRESSION: Rehydration versus progressing pneumonia right upper lobe. No pneumothorax. Assessment & Plan - Diagnosis (1) SIRS with acute organ dysfunction due to infectious process Is this a current diagnosis for this admission?: Yes (2) Lobar pneumonia, unspecified organism Is this a current diagnosis for this admission?: Yes (3) Grecia infection, disseminated Is this a current diagnosis for this admission?: Yes (4) Anemia due to infection Is this a current diagnosis for this admission?: Yes (5) Decompensated COPD with exacerbation (chronic obstructive pulmonary disease) Is this a current diagnosis for this admission?: Yes (6) Chronic atrial fibrillation Is this a current diagnosis for this admission?: Yes (7) HTN (hypertension) Qualifiers: Hypertension type: essential hypertension Qualified Code(s): I10 - Essential (primary) hypertension Is this a current diagnosis for this admission?: Yes (8) HLD (hyperlipidemia) Qualifiers: Hyperlipidemia type: pure hypercholesterolemia Qualified Code(s): E78.00 - Pure hypercholesterolemia, unspecified Is this a current diagnosis for this admission?: Yes (9) GERD (gastroesophageal reflux disease) Qualifiers: Esophagitis presence: esophagitis presence not specified Qualified Code(s) : K21.9 - Gastro-esophageal reflux disease without esophagitis Is this a current diagnosis for this admission?: Yes (10) Anxiety Is this a current diagnosis for this admission?: Yes (11) Depression Qualifiers: Depression Type: major depressive disorder Major depression recurrence: recurrent Active/Remission status: currently active Psychotic features: without psychotic features Is this a current diagnosis for this admission?: Yes - Time Time Spent with patient: 25-34 minutes Medications reviewed and adjusted accordingly: Yes Anticipated discharge: SNF Within: Other - Inpatient Certification Based on my medical assessment, after consideration of the patient's comorbidities, presenting symptoms, or acuity I expect that the services needed warrant INPATIENT care.: Yes I certify that my determination is in accordance with my understanding of Medicare's requirements for reasonable and necessary INPATIENT services [42 CFR 412.3e].: Yes Medical Necessity: Need Close Monitoring Due to Risk of Patient Decompensation, Need For IV Fluids, Need For Continuous Telemetry Monitoring, Need for Nebulizer Therapy and Monitoring of Response, Need for IV Antibiotics, Risk of Complication if Not Cared For in Hospital Post Hospital Care: D/C or Transfer Summary - Plan Summary Plan Summary: Advance diet. Decrease IV fluid rate to 50/hour. Potassium replacement in progress. Obtain serum Mag level. Continue IV antibiotic and antifungal coverage. Increase Valsartan to 160 mg po q12 hours. Downgrade to IMCU status. Continue other current medication management
[2018-06-07] MEDS: POTASSIUM CHLORIDE 20 MEQ/50 ML RTU IV SCH ×3 (08:45→12:37)
[2018-06-07] MEDS: PREDNISONE 5 MG TABLET NG SCH (09:02)
[2018-06-07] MEDS: APIXABAN 5 MG TABLET NG SCH ×2 (09:03→18:14)
[2018-06-07] MEDS: DOCUSATE SODIUM 100 MG CAPSULE PO SCH ×2 (09:05→18:07)
[2018-06-07] MEDS: FUROSEMIDE INJ/PF 20 MG/2 ML SDV IV SCH (10:20)
[2018-06-07] MEDS: VALSARTAN 160 MG TABLET PO SCH ×2 (10:20→21:22)
[2018-06-07] MEDS: DIGOXIN 0.25 MG TABLET NG SCH (10:20)
[2018-06-07] MEDS: MULTIVITAMIN TABLET PO SCH (10:28)
[2018-06-07] MEDS: NORMAL SALINE 1000 ML 1,000 ML IV PRN (16:38)
[2018-06-07] MEDS: VANCOMYCIN HCL 750 MG in DEXTROSE 5%-WATER 250 ML IV SCH (18:14)
[2018-06-07 19:26] LABS: ANION GAP 10 (5-19); BLOOD UREA NITROGEN 11 mg/dL (7-20); CALCIUM 7.6 mg/dL (8.4-10.2); CARBON DIOXIDE 32 mmol/L (22-30); CHLORIDE 97 mmol/L (98-107); GLUCOSE 148 mg/dL (75-110); POTASSIUM 3.7 mmol/L (3.6-5.0); SODIUM 139.2 mmol/L (137-145)
[2018-06-07] MEDS: FLUCONAZOLE 200 MG/NS RTU 200 MG/100 ML RTUPB IV SCH (21:21)
[2018-06-08] MEDS: INSULIN LISPRO 100 UNIT/ML 3 ML VIAL SUBCUT SCH (00:53)
[2018-06-08] MEDS: IPRATROPIUM/ALBUTEROL 0.5-2.5 MG/3 ML AMPUL NEB SCH ×4 (01:51→20:41)
[2018-06-08] MEDS: GABAPENTIN 400 MG CAPSULE NG SCH ×3 (05:05→21:50)
[2018-06-08] MEDS: PIPERACILLIN SODIUM/TAZOBACTAM 3.375 GM in NORMAL SALINE 100 ML IV SCH ×4 (05:05→21:53)
[2018-06-08] MEDS: LANSOPRAZOLE 30 MG TAB.RAP.DR NG SCH (05:05)
[2018-06-08 06:47] LABS: ANION GAP 9 (5-19); BLOOD UREA NITROGEN 10 mg/dL (7-20); CALCIUM 7.5 mg/dL (8.4-10.2); CARBON DIOXIDE 33 mmol/L (22-30); CHLORIDE 98 mmol/L (98-107); GLUCOSE 107 mg/dL (75-110); POTASSIUM 3.3 mmol/L (3.6-5.0); SODIUM 140.1 mmol/L (137-145)
[2018-06-08] MEDS: MULTIVITAMIN TABLET PO SCH (10:07)
[2018-06-08] MEDS: VALSARTAN 160 MG TABLET PO SCH ×2 (10:08→21:51)
[2018-06-08] MEDS: PREDNISONE 5 MG TABLET NG SCH (10:08)
[2018-06-08] MEDS: FUROSEMIDE INJ/PF 20 MG/2 ML SDV IV SCH (10:08)
[2018-06-08] MEDS: DIGOXIN 0.25 MG TABLET NG SCH (10:08)
[2018-06-08] MEDS: APIXABAN 5 MG TABLET NG SCH ×2 (10:08→17:41)
[2018-06-08] MEDS: DOCUSATE SODIUM 100 MG CAPSULE PO SCH ×2 (10:09→17:41)
[2018-06-08] MEDS: ACETAMINOPHEN SOLN 325 MG/10.15 ML UDCUP NG PRN (15:59)
[2018-06-08] MEDS: NORMAL SALINE 1000 ML 1,000 ML IV PRN (16:06)
--- NOTE | 2018-06-08 16:58 | PDOC PROGRESS REPORT ---
Subjective Progress Note for:: 06/08/18 Subjective:: No chest pain. Breathing is improving and currently on supplemental oxygen at 2L /min via nasal cannula. No abdominal pain, nausea, vomiting, fever or chills. Reported left shoulder and arm pain. Participated in bedside physical therapy today. Reason For Visit: ADMIT TO ICU FOR PNA AND SEPSIS Physical Exam Vital Signs: Temp Pulse Resp BP Pulse Ox 98.4 F 83 18 160/68 H 95 06/08/18 15:36 06/08/18 15:36 06/08/18 15:36 06/08/18 15:36 06/08/18 15:36 Intake & Output 06/07/18 06/08/18 06/09/18 06:59 06:59 06:59 Intake Total 2393 2694 1100 Output Total 4310 1260 1300 Balance -1917 1434 -200 Weight 69.8 kg 68.5 kg Physical Exam: General appearance: PRESENT: no acute distress, mild distress Head exam: PRESENT: atraumatic, normocephalic Eye exam: PRESENT: conjunctiva pink, EOMI, PERRLA. ABSENT: scleral icterus Ear exam: PRESENT: normal external ear exam Mouth exam: PRESENT: moist, neck supple, tongue midline Respiratory exam: PRESENT: decreased breath sounds - at lung bases Cardiovascular exam: PRESENT: irregular rhythm, +S1, +S2. ABSENT: diastolic murmur, systolic murmur Vascular exam: PRESENT: normal capillary refill. ABSENT: pallor GI/Abdominal exam: PRESENT: normal bowel sounds, soft. ABSENT: distended, guarding, mass, organomegaly, rebound, tenderness Extremities exam: PRESENT: pedal edema - resolving Musculoskeletal exam: PRESENT: deformity - related to multiple joints involvement with arthritis Neurological exam: PRESENT: alert, awake, oriented to person, oriented to place , oriented to time, oriented to situation, CN II-XII grossly intact. ABSENT: motor sensory deficit Psychiatric exam: PRESENT: appropriate affect, normal mood. ABSENT: homicidal ideation, suicidal ideation Skin exam: PRESENT: dry, warm Results Laboratory Results: 06/06/18 05:25 06/08/18 05:15 06/07/18 06/08/18 18:35 05:15 Sodium 139.2 140.1 Potassium 3.7 3.3 L Chloride 97 L 98 Carbon Dioxide 32 H 33 H Anion Gap 10 9 BUN 11 10 Creatinine 0.60 0.66 Est GFR ( Amer) > 60 > 60 Est GFR (Non-Af Amer) > 60 > 60 Glucose 148 H 107 Calcium 7.6 L 7.5 L Impressions: KUB X-Ray 05/31/18 00:00 IMPRESSION: Nasogastric tube tip and side port in the stomach. Chest Ultrasound 06/03/18 11:30 IMPRESSION: MODERATE BILATERAL PLEURAL EFFUSIONS. Chest X-Ray 06/05/18 05:00 IMPRESSION: Rehydration versus progressing pneumonia right upper lobe. No pneumothorax. Assessment & Plan - Diagnosis (1) SIRS with acute organ dysfunction due to infectious process Is this a current diagnosis for this admission?: Yes (2) Lobar pneumonia, unspecified organism Is this a current diagnosis for this admission?: Yes (3) Grecia infection, disseminated Is this a current diagnosis for this admission?: Yes (4) Anemia due to infection Is this a current diagnosis for this admission?: Yes (5) Decompensated COPD with exacerbation (chronic obstructive pulmonary disease) Is this a current diagnosis for this admission?: Yes (6) Chronic atrial fibrillation Is this a current diagnosis for this admission?: Yes (7) HTN (hypertension) Qualifiers: Hypertension type: essential hypertension Qualified Code(s): I10 - Essential (primary) hypertension Is this a current diagnosis for this admission?: Yes (8) HLD (hyperlipidemia) Qualifiers: Hyperlipidemia type: pure hypercholesterolemia Qualified Code(s): E78.00 - Pure hypercholesterolemia, unspecified Is this a current diagnosis for this admission?: Yes (9) GERD (gastroesophageal reflux disease) Qualifiers: Esophagitis presence: esophagitis presence not specified Qualified Code(s) : K21.9 - Gastro-esophageal reflux disease without esophagitis Is this a current diagnosis for this admission?: Yes (10) Anxiety Is this a current diagnosis for this admission?: Yes (11) Depression Qualifiers: Depression Type: major depressive disorder Major depression recurrence: recurrent Active/Remission status: currently active Psychotic features: without psychotic features Is this a current diagnosis for this admission?: Yes - Time Time Spent with patient: 25-34 minutes Medications reviewed and adjusted accordingly: Yes Anticipated discharge: SNF - Inpatient Certification Based on my medical assessment, after consideration of the patient's comorbidities, presenting symptoms, or acuity I expect that the services needed warrant INPATIENT care.: Yes I certify that my determination is in accordance with my understanding of Medicare's requirements for reasonable and necessary INPATIENT services [42 CFR 412.3e].: Yes Medical Necessity: Need Close Monitoring Due to Risk of Patient Decompensation, Need For IV Fluids, Need For Continuous Telemetry Monitoring, Need for Nebulizer Therapy and Monitoring of Response, Need for IV Antibiotics, Risk of Complication if Not Cared For in Hospital Post Hospital Care: D/C or Transfer Summary - Plan Summary Plan Summary: See attending physician orders.
[2018-06-08] MEDS: LACTOBACILLUS ACIDOPHILUS 250 MG TAB PO SCH (17:40)
[2018-06-08] MEDS: POTASSIUM CHLORIDE 10 MEQ CAPSULE.ER PO SCH ×2 (17:41→21:49)
[2018-06-08] MEDS: VANCOMYCIN HCL 750 MG in DEXTROSE 5%-WATER 250 ML IV SCH (17:41)
[2018-06-08] MEDS: FLUCONAZOLE 200 MG/NS RTU 200 MG/100 ML RTUPB IV SCH (18:02)
[2018-06-09] MEDS: IPRATROPIUM/ALBUTEROL 0.5-2.5 MG/3 ML AMPUL NEB SCH ×4 (02:03→20:04)
[2018-06-09] MEDS: LANSOPRAZOLE 30 MG TAB.RAP.DR NG SCH (05:12)
[2018-06-09] MEDS: PIPERACILLIN SODIUM/TAZOBACTAM 3.375 GM in NORMAL SALINE 100 ML IV SCH ×4 (05:12→21:36)
[2018-06-09] MEDS: GABAPENTIN 400 MG CAPSULE NG SCH ×3 (05:12→21:36)
[2018-06-09] MEDS: ALBUTEROL SULFATE 0.083% NEB 2.5 MG/3 ML AMPUL NEB PRN (05:20)
[2018-06-09 06:25] LABS: ANION GAP 10 (5-19); BLOOD UREA NITROGEN 8 mg/dL (7-20); CALCIUM 7.9 mg/dL (8.4-10.2); CARBON DIOXIDE 30 mmol/L (22-30); CHLORIDE 100 mmol/L (98-107); GLUCOSE 116 mg/dL (75-110); POTASSIUM 3.8 mmol/L (3.6-5.0); SODIUM 140.1 mmol/L (137-145)
[2018-06-09] MEDS: PREDNISONE 5 MG TABLET NG SCH (10:29)
[2018-06-09] MEDS: DIGOXIN 0.25 MG TABLET NG SCH (10:29)
[2018-06-09] MEDS: VALSARTAN 160 MG TABLET PO SCH ×2 (10:29→21:36)
[2018-06-09] MEDS: APIXABAN 5 MG TABLET NG SCH ×2 (10:29→17:42)
[2018-06-09] MEDS: LACTOBACILLUS ACIDOPHILUS 250 MG TAB PO SCH ×2 (10:29→17:42)
[2018-06-09] MEDS: MULTIVITAMIN TABLET PO SCH (10:30)
[2018-06-09] MEDS: DOCUSATE SODIUM 100 MG CAPSULE PO SCH ×2 (10:31→17:43)
--- NOTE | 2018-06-09 11:44 | PDOC PROGRESS REPORT ---
Subjective Progress Note for:: 06/09/18 Subjective:: Patient was seen by the bedside, she is now downgraded to IMCU floor Reason For Visit: ADMIT TO ICU FOR PNA AND SEPSIS Physical Exam Vital Signs: Temp Pulse Resp BP Pulse Ox 97.7 F 85 20 149/97 H 99 06/09/18 07:28 06/09/18 08:18 06/09/18 08:18 06/09/18 07:28 06/09/18 08:18 Intake & Output 06/08/18 06/09/18 06/10/18 06:59 06:59 06:59 Intake Total 2694 1950 8 Output Total 1260 3300 Balance 1434 -1350 8 Weight 68.5 kg 73.2 kg General appearance: PRESENT: no acute distress Eye exam: PRESENT: PERRLA Respiratory exam: PRESENT: rhonchi Cardiovascular exam: PRESENT: +S1, +S2 Neurological exam: PRESENT: alert Results Laboratory Results: 06/06/18 05:25 06/09/18 05:42 06/09/18 05:42 Sodium 140.1 Potassium 3.8 Chloride 100 Carbon Dioxide 30 Anion Gap 10 BUN 8 Creatinine 0.64 Est GFR ( Amer) > 60 Est GFR (Non-Af Amer) > 60 Glucose 116 H Calcium 7.9 L Impressions: KUB X-Ray 05/31/18 00:00 IMPRESSION: Nasogastric tube tip and side port in the stomach. Chest Ultrasound 06/03/18 11:30 IMPRESSION: MODERATE BILATERAL PLEURAL EFFUSIONS. Chest X-Ray 06/05/18 05:00 IMPRESSION: Rehydration versus progressing pneumonia right upper lobe. No pneumothorax. Assessment & Plan - Diagnosis (1) Septicemia Is this a current diagnosis for this admission?: Yes (2) Pneumonia Qualifiers: Pneumonia type: due to methicillin-resistant Staphylococcus aureus (MRSA) Laterality: bilateral Lung location: unspecified part of lung Qualified Code (s): J15.212 - Pneumonia due to Methicillin resistant Staphylococcus aureus Is this a current diagnosis for this admission?: Yes (3) Acute respiratory failure with hypoxemia Is this a current diagnosis for this admission?: Yes (4) COPD (chronic obstructive pulmonary disease) Qualifiers: COPD type: unspecified COPD Qualified Code(s): J44.9 - Chronic obstructive pulmonary disease, unspecified Is this a current diagnosis for this admission?: Yes (5) Atrial fibrillation with rapid ventricular response Is this a current diagnosis for this admission?: Yes (6) MRSA pneumonia Qualifiers: Laterality: bilateral Is this a current diagnosis for this admission?: Yes - Plan Summary Plan Summary: Chest x-ray ordered, CBC and comprehensive metabolic panel
[2018-06-09 12:37] LABS: ABSOLUTE BASOPHILS # (AUTO) 0.1 10^3/uL (0.0-0.2); ABSOLUTE EOSINOPHILS # (AUTO) 0.1 10^3/uL (0.0-0.6); ABSOLUTE MONOCYTES (AUTO) 0.8 10^3/uL (0.1-1.4); ABSOLUTE NEUT (AUTO) 8.7 10^3/uL (1.7-8.2); BASOPHILS % (AUTO) 0.7 % (0-2); EOSINOPHILS % (AUTO) 1.2 % (0-6); HEMATOCRIT 30.8 % (36.0-47.0); HEMOGLOBIN 9.7 g/dL (12.0-15.5); LYMPHOCYTES % (AUTO) 9.7 % (13-45); MEAN CORPUSCULAR HEMOGLOBIN 23.6 pg (27.0-33.4); MEAN CORPUSCULAR HGB CONC 31.4 g/dL (32.0-36.0); MEAN CORPUSCULAR VOLUME 75 fl (80-97); MONOCYTES % (AUTO) 7.6 % (3-13); PLATELET COUNT 256 10^3/uL (150-450); RED CELL DISTRIBUTION WIDTH 20.4 % (11.5-14.0); SEGMENTED NEUTROPHILS % (AUTO) 80.8 % (42-78); TOTAL CELLS COUNTED % (AUTO) 100 %; WHITE BLOOD COUNT 10.8 10^3/uL (4.0-10.5)
--- NOTE | 2018-06-09 12:49 | RADIOLOGY REPORT (SQ) ---
EXAM DESCRIPTION: CHEST SINGLE VIEW COMPLETED DATE/TIME: 06/09/2018 12:19 pm REASON FOR STUDY: cxr COMPARISON: 06/05/2018. NUMBER OF VIEWS: One view. TECHNIQUE: Single frontal radiographic view of the chest acquired. LIMITATIONS: None. FINDINGS: LUNGS AND PLEURA: Small right pleural effusion. Globally improved aeration, although ther e is patchy persistent infiltrate or edema in the right upper lobe. No pneumothorax. MEDIASTINUM AND HILAR STRUCTURES: No masses. Contour normal. HEART AND VASCULAR STRUCTURES: Stable heart size. BONES: No acute findings. HARDWARE: Endotracheal and nasogastric tubes have been removed. Right IJ line remains in place. OTHER: No other significant finding. IMPRESSION: Improving aeration. Persistent findings including a small amount of pleural fluid and s ome persistent right upper lobe infiltrate/edema. TECHNICAL DOCUMENTATION: JOB ID: [id number] [employer]- All Rights Reserved Reading location - IP/workstation name: [email or web address]
[2018-06-09 12:55] LABS: ALANINE AMINOTRANSFERASE 35 U/L (9-52); ALBUMIN 2.7 g/dL (3.5-5.0); ALKALINE PHOSPHATASE 89 U/L (38-126); ANION GAP 10 (5-19); ASPARTATE AMINO TRANSFERASE 38 U/L (14-36); BILIRUBIN,DIRECT 0.5 mg/dL (0.0-0.4); BILIRUBIN,TOTAL 0.6 mg/dL (0.2-1.3); BLOOD UREA NITROGEN 8 mg/dL (7-20); CARBON DIOXIDE 30 mmol/L (22-30); CHLORIDE 101 mmol/L (98-107); GLUCOSE 121 mg/dL (75-110); POTASSIUM 3.5 mmol/L (3.6-5.0); SODIUM 140.6 mmol/L (137-145); TOTAL PROTEIN 5.4 g/dL (6.3-8.2)
[2018-06-09] MEDS: NORMAL SALINE 1000 ML 1,000 ML IV PRN (13:10)
[2018-06-09] MEDS: VANCOMYCIN HCL 750 MG in DEXTROSE 5%-WATER 250 ML IV SCH (17:42)
[2018-06-09] MEDS: FLUCONAZOLE 200 MG/NS RTU 200 MG/100 ML RTUPB IV SCH (19:30)
[2018-06-10] MEDS: IPRATROPIUM/ALBUTEROL 0.5-2.5 MG/3 ML AMPUL NEB SCH ×4 (01:55→19:42)
[2018-06-10] MEDS: PIPERACILLIN SODIUM/TAZOBACTAM 3.375 GM in NORMAL SALINE 100 ML IV SCH ×4 (03:22→21:38)
[2018-06-10 04:20] LABS: ANION GAP 8 (5-19); BLOOD UREA NITROGEN 8 mg/dL (7-20); CALCIUM 7.6 mg/dL (8.4-10.2); CARBON DIOXIDE 30 mmol/L (22-30); CHLORIDE 102 mmol/L (98-107); GLUCOSE 109 mg/dL (75-110); POTASSIUM 3.2 mmol/L (3.6-5.0); SODIUM 139.6 mmol/L (137-145)
[2018-06-10] MEDS: GABAPENTIN 400 MG CAPSULE NG SCH ×3 (05:29→21:38)
[2018-06-10] MEDS: LANSOPRAZOLE 30 MG TAB.RAP.DR NG SCH (05:29)
[2018-06-10] MEDS: SIMETHICONE 80 MG TAB.CHEW PO PRN ×3 (07:52→20:37)
[2018-06-10] MEDS: PREDNISONE 5 MG TABLET NG SCH (10:39)
[2018-06-10] MEDS: MULTIVITAMIN TABLET PO SCH (10:39)
[2018-06-10] MEDS: LACTOBACILLUS ACIDOPHILUS 250 MG TAB PO SCH ×2 (10:39→17:52)
[2018-06-10] MEDS: VALSARTAN 160 MG TABLET PO SCH ×2 (10:39→21:38)
[2018-06-10] MEDS: DIGOXIN 0.25 MG TABLET NG SCH (10:39)
[2018-06-10] MEDS: DOCUSATE SODIUM 100 MG CAPSULE PO SCH ×2 (10:40→17:52)
[2018-06-10] MEDS: APIXABAN 5 MG TABLET NG SCH ×2 (10:40→17:52)
[2018-06-10] MEDS: NORMAL SALINE 1000 ML 1,000 ML IV PRN (14:02)
--- NOTE | 2018-06-10 14:46 | PDOC PROGRESS REPORT ---
Subjective Progress Note for:: 06/10/18 Subjective:: She was seen by the bedside, she has diarrhea with hypokalemia, stool negative for C. difficile toxin Reason For Visit: ADMIT TO ICU FOR PNA AND SEPSIS Physical Exam Vital Signs: Temp Pulse Resp BP Pulse Ox 97.7 F 100 22 H 99/59 L 98 06/10/18 11:47 06/10/18 11:47 06/10/18 11:47 06/10/18 11:47 06/10/18 11:47 Intake & Output 06/09/18 06/10/18 06/11/18 06:59 06:59 06:59 Intake Total 1950 2655 1455 Output Total 3300 1150 600 Balance -1350 1505 855 Weight 73.2 kg 73.4 kg General appearance: PRESENT: no acute distress Eye exam: PRESENT: PERRLA Respiratory exam: PRESENT: clear to auscultation cas Cardiovascular exam: PRESENT: +S1, +S2 GI/Abdominal exam: PRESENT: soft Neurological exam: PRESENT: alert Results Laboratory Results: 06/09/18 12:23 06/10/18 03:44 06/10/18 03:44 Sodium 139.6 Potassium 3.2 L Chloride 102 Carbon Dioxide 30 Anion Gap 8 BUN 8 Creatinine 0.61 Est GFR ( Amer) > 60 Est GFR (Non-Af Amer) > 60 Glucose 109 Calcium 7.6 L 05/29/18 13:12 Bronchial Washings Fungal Smear - Final 05/29/18 13:12 Bronchial Washings Fungal Smear - Final Impressions: KUB X-Ray 05/31/18 00:00 IMPRESSION: Nasogastric tube tip and side port in the stomach. Chest Ultrasound 06/03/18 11:30 IMPRESSION: MODERATE BILATERAL PLEURAL EFFUSIONS. Chest X-Ray 06/09/18 00:00 IMPRESSION: Improving aeration. Persistent findings including a small amount of pleural fluid and some persistent right upper lobe infiltrate/edema. Assessment & Plan - Diagnosis (1) Septicemia Is this a current diagnosis for this admission?: Yes (2) Pneumonia Qualifiers: Pneumonia type: due to methicillin-resistant Staphylococcus aureus (MRSA) Laterality: bilateral Lung location: unspecified part of lung Qualified Code (s): J15.212 - Pneumonia due to Methicillin resistant Staphylococcus aureus Is this a current diagnosis for this admission?: Yes (3) Acute respiratory failure with hypoxemia Is this a current diagnosis for this admission?: Yes (4) COPD (chronic obstructive pulmonary disease) Qualifiers: COPD type: unspecified COPD Qualified Code(s): J44.9 - Chronic obstructive pulmonary disease, unspecified Is this a current diagnosis for this admission?: Yes (5) Atrial fibrillation with rapid ventricular response Is this a current diagnosis for this admission?: Yes (6) MRSA pneumonia Qualifiers: Laterality: bilateral Is this a current diagnosis for this admission?: Yes
[2018-06-10 17:43] LABS: ARTERIAL BLOOD BASE EXCESS 3.7 mmol/L; ARTERIAL BLOOD H2CO3 1.14 mmol/L (1.05-1.35); ARTERIAL BLOOD HCO3 27.4 mmol/L (20-26); ARTERIAL BLOOD O2 SATURATION 95.9 % (94-98); ARTERIAL BLOOD PH 7.48 (7.35-7.45); ARTERIAL BLOOD TOTAL CO2 28.6 mmol/L (21-25)
[2018-06-10 17:44] LABS: ARTERIAL BLOOD FIO2 0.5L
[2018-06-10] MEDS: FLUCONAZOLE 200 MG/NS RTU 200 MG/100 ML RTUPB IV SCH (18:04)
[2018-06-10 18:40] LABS: VANCOMYCIN,TROUGH 8.5 ug/mL (5.0-20.0)
[2018-06-10] MEDS: POTASSIUM CHLORIDE 20 MEQ/15 ML UDCUP PO SCH ×2 (19:06→21:39)
[2018-06-11] MEDS: IPRATROPIUM/ALBUTEROL 0.5-2.5 MG/3 ML AMPUL NEB SCH ×4 (02:48→20:05)
[2018-06-11] MEDS: PIPERACILLIN SODIUM/TAZOBACTAM 3.375 GM in NORMAL SALINE 100 ML IV SCH ×4 (03:12→21:17)
[2018-06-11 05:33] LABS: ANION GAP 8 (5-19); BLOOD UREA NITROGEN 8 mg/dL (7-20); CALCIUM 7.9 mg/dL (8.4-10.2); CARBON DIOXIDE 28 mmol/L (22-30); CHLORIDE 106 mmol/L (98-107); GLUCOSE 121 mg/dL (75-110); SODIUM 141.9 mmol/L (137-145)
--- NOTE | 2018-06-11 05:58 | RADIOLOGY REPORT (SQ) ---
EXAM DESCRIPTION: XR CHEST 1 VIEW COMPLETED DATE/TME: 06/11/2018 00:00 CLINICAL HISTORY: Increased SOB COMPARISON: 05/10/2018 FINDINGS: Single frontal view of the chest. Right IJ central venous catheter with tip in the right atrium. Heart is nonenlarged. Bibasilar airspace opacities and small right pleural effusion are stable. Remote left-sided rib fractures. No pneumothorax. Upper abdominal soft tissues are unremarkable. IMPRESSION: 1. Stable appearance of the chest.
[2018-06-11] MEDS: GABAPENTIN 400 MG CAPSULE NG SCH ×3 (07:32→21:17)
[2018-06-11] MEDS: LANSOPRAZOLE 30 MG TAB.RAP.DR NG SCH (07:32)
[2018-06-11] MEDS: LACTOBACILLUS ACIDOPHILUS 250 MG TAB PO SCH ×2 (09:11→18:12)
[2018-06-11] MEDS: DOCUSATE SODIUM 100 MG CAPSULE PO SCH ×2 (09:11→18:14)
[2018-06-11] MEDS: MULTIVITAMIN TABLET PO SCH (09:11)
[2018-06-11] MEDS: APIXABAN 5 MG TABLET NG SCH ×2 (09:11→18:12)
[2018-06-11] MEDS: DIGOXIN 0.25 MG TABLET NG SCH (09:11)
[2018-06-11] MEDS: VALSARTAN 160 MG TABLET PO SCH ×2 (09:11→21:17)
[2018-06-11] MEDS: PREDNISONE 5 MG TABLET NG SCH (09:11)
[2018-06-11] MEDS: SIMETHICONE 80 MG TAB.CHEW PO PRN (09:21)
[2018-06-11 10:02] LABS: ABSOLUTE BASOPHILS # (AUTO) 0.1 10^3/uL (0.0-0.2); ABSOLUTE EOSINOPHILS # (AUTO) 0.2 10^3/uL (0.0-0.6); ABSOLUTE LYMPHOCYTES (AUTO) 1.4 10^3/uL (0.5-4.7); ABSOLUTE MONOCYTES (AUTO) 0.8 10^3/uL (0.1-1.4); ABSOLUTE NEUT (AUTO) 7.7 10^3/uL (1.7-8.2); BASOPHILS % (AUTO) 1.2 % (0-2); EOSINOPHILS % (AUTO) 2.1 % (0-6); HEMATOCRIT 29.1 % (36.0-47.0); HEMOGLOBIN 9.4 g/dL (12.0-15.5); LYMPHOCYTES % (AUTO) 14.1 % (13-45); MEAN CORPUSCULAR HEMOGLOBIN 24.4 pg (27.0-33.4); MEAN CORPUSCULAR HGB CONC 32.3 g/dL (32.0-36.0); MEAN CORPUSCULAR VOLUME 75 fl (80-97); MONOCYTES % (AUTO) 7.8 % (3-13); PLATELET COUNT 184 10^3/uL (150-450); RED BLOOD COUNT 3.86 10^6/uL (3.72-5.28); RED CELL DISTRIBUTION WIDTH 21.3 % (11.5-14.0); SEGMENTED NEUTROPHILS % (AUTO) 74.8 % (42-78); TOTAL CELLS COUNTED % (AUTO) 100 %; WHITE BLOOD COUNT 10.3 10^3/uL (4.0-10.5)
[2018-06-11] MEDS: NORMAL SALINE 1000 ML 1,000 ML IV PRN (16:47)
[2018-06-11] MEDS: FLUCONAZOLE 200 MG/NS RTU 200 MG/100 ML RTUPB IV SCH (18:20)
--- NOTE | 2018-06-11 20:58 | PDOC PROGRESS REPORT ---
Subjective Progress Note for:: 06/11/18 Subjective:: No chest pain. Breathing is improving and currently on supplemental oxygen at 2L /min via nasal cannula with use of BiPAP while sleeping. No abdominal pain, nausea, vomiting. P.O intake remain a challenge. No fever or chills. Continue to participated in bedside physical therapy sessions. Reason For Visit: ADMIT TO ICU FOR PNA AND SEPSIS Physical Exam Vital Signs: Temp Pulse Resp BP Pulse Ox 98.8 F 73 25 H 151/71 H 100 06/11/18 03:07 06/11/18 03:07 06/11/18 03:07 06/11/18 03:07 06/11/18 03:07 Intake & Output 06/10/18 06/11/18 06/12/18 06:59 06:59 06:59 Intake Total 2755 2527 Output Total 1150 2400 Balance 1605 127 Weight 73.4 kg 73.5 kg Physical Exam: General appearance: PRESENT: no acute distress, mild distress Head exam: PRESENT: atraumatic, normocephalic Eye exam: PRESENT: conjunctiva pink, EOMI, PERRLA. ABSENT: scleral icterus Ear exam: PRESENT: normal external ear exam Mouth exam: PRESENT: moist, neck supple, tongue midline Respiratory exam: PRESENT: decreased breath sounds - at lung bases Cardiovascular exam: PRESENT: irregular rhythm, +S1, +S2. ABSENT: diastolic murmur, systolic murmur Vascular exam: PRESENT: normal capillary refill. ABSENT: pallor GI/Abdominal exam: PRESENT: normal bowel sounds, soft. ABSENT: distended, guarding, mass, organomegaly, rebound, tenderness Extremities exam: PRESENT: pedal edema - resolving Musculoskeletal exam: PRESENT: deformity - related to multiple joints involvement with arthritis Neurological exam: PRESENT: alert, awake, oriented to person, oriented to place , oriented to time, oriented to situation, CN II-XII grossly intact. ABSENT: motor sensory deficit Psychiatric exam: PRESENT: appropriate affect, normal mood. ABSENT: homicidal ideation, suicidal ideation Skin exam: PRESENT: dry, warm Results Laboratory Results: 06/09/18 12:23 06/11/18 04:20 06/10/18 06/10/18 06/11/18 17:30 18:00 04:20 Carbonic Acid 1.14 HCO3/H2CO3 Ratio 24:1 ABG pH 7.48 H ABG pCO2 38.0 ABG pO2 75.0 L ABG HCO3 27.4 H ABG O2 Saturation 95.9 ABG Base Excess 3.7 FiO2 0.5L Sodium 141.9 Potassium 4.0 Chloride 106 Carbon Dioxide 28 Anion Gap 8 BUN 8 Creatinine 0.63 0.64 Est GFR ( Amer) > 60 > 60 Est GFR (Non-Af Amer) > 60 > 60 Glucose 121 H Calcium 7.9 L Impressions: KUB X-Ray 05/31/18 00:00 IMPRESSION: Nasogastric tube tip and side port in the stomach. Chest Ultrasound 06/03/18 11:30 IMPRESSION: MODERATE BILATERAL PLEURAL EFFUSIONS. Chest X-Ray 06/11/18 00:00 IMPRESSION: 1. Stable appearance of the chest. Assessment & Plan - Diagnosis (1) SIRS with acute organ dysfunction due to infectious process Is this a current diagnosis for this admission?: Yes (2) Lobar pneumonia, unspecified organism Is this a current diagnosis for this admission?: Yes (3) Grecia infection, disseminated Is this a current diagnosis for this admission?: Yes (4) Anemia due to infection Is this a current diagnosis for this admission?: Yes (5) Decompensated COPD with exacerbation (chronic obstructive pulmonary disease) Is this a current diagnosis for this admission?: Yes (6) Chronic atrial fibrillation Is this a current diagnosis for this admission?: Yes (7) HTN (hypertension) Qualifiers: Hypertension type: essential hypertension Qualified Code(s): I10 - Essential (primary) hypertension Is this a current diagnosis for this admission?: Yes (8) HLD (hyperlipidemia) Qualifiers: Hyperlipidemia type: pure hypercholesterolemia Qualified Code(s): E78.00 - Pure hypercholesterolemia, unspecified Is this a current diagnosis for this admission?: Yes (9) GERD (gastroesophageal reflux disease) Qualifiers: Esophagitis presence: esophagitis presence not specified Qualified Code(s) : K21.9 - Gastro-esophageal reflux disease without esophagitis Is this a current diagnosis for this admission?: Yes (10) Anxiety Is this a current diagnosis for this admission?: Yes (11) Depression Qualifiers: Depression Type: major depressive disorder Major depression recurrence: recurrent Active/Remission status: currently active Psychotic features: without psychotic features Is this a current diagnosis for this admission?: Yes - Time Time Spent with patient: 25-34 minutes Medications reviewed and adjusted accordingly: Yes Anticipated discharge: SNF Within: Other - Inpatient Certification Based on my medical assessment, after consideration of the patient's comorbidities, presenting symptoms, or acuity I expect that the services needed warrant INPATIENT care.: Yes I certify that my determination is in accordance with my understanding of Medicare's requirements for reasonable and necessary INPATIENT services [42 CFR 412.3e].: Yes Medical Necessity: Need Close Monitoring Due to Risk of Patient Decompensation, Need For IV Fluids, Need For Continuous Telemetry Monitoring, Need for Nebulizer Therapy and Monitoring of Response, Need for IV Antibiotics, Risk of Complication if Not Cared For in Hospital Post Hospital Care: D/C or Transfer Summary - Plan Summary Plan Summary: Continue IV Vancomycin and Zosyn for total 14 days therapy. Maintain on IV Diflucan for same duration. Plan for SNF rehabilitation upon discharge. Dulcolax suppository for reported constipation although poor P.O intake may be accountable. Obtain KUB for further evaluation.
[2018-06-11] MEDS ORDERED: VANCOMYCIN HCL 0 MG in DEXTROSE 5%-WATER 250 ML IV NR (21:00)
[2018-06-11] MEDS ORDERED: BISACODYL 10 MG SUPP.RECT PR ONE (21:30)
[2018-06-11] MEDS: VANCOMYCIN HCL 1,000 MG in DEXTROSE 5%-WATER 250 ML IV SCH (22:12)
[2018-06-12] MEDS: IPRATROPIUM/ALBUTEROL 0.5-2.5 MG/3 ML AMPUL NEB SCH ×4 (01:58→19:35)
[2018-06-12] MEDS: PIPERACILLIN SODIUM/TAZOBACTAM 3.375 GM in NORMAL SALINE 100 ML IV SCH ×4 (03:25→20:39)
[2018-06-12] MEDS: GABAPENTIN 400 MG CAPSULE NG SCH ×3 (05:39→22:06)
[2018-06-12] MEDS: LANSOPRAZOLE 30 MG TAB.RAP.DR NG SCH (05:39)
[2018-06-12 06:35] LABS: ANION GAP 8 (5-19); BLOOD UREA NITROGEN 6 mg/dL (7-20); CALCIUM 7.6 mg/dL (8.4-10.2); CARBON DIOXIDE 28 mmol/L (22-30); CHLORIDE 104 mmol/L (98-107); GLUCOSE 109 mg/dL (75-110); SODIUM 140.2 mmol/L (137-145)
--- NOTE | 2018-06-12 08:11 | RADIOLOGY REPORT (SQ) ---
EXAM DESCRIPTION: KUB/ABDOMEN (SINGLE VIEW) COMPLETED DATE/TIME: 06/11/2018 10:36 pm REASON FOR STUDY: constipation, abdominal discomfort COMPARISON: 05/31/2018. NUMBER OF VIEWS: One view. TECHNIQUE: Supine radiographic image of the abdomen acquired. LIMITATIONS: None. FINDINGS: BOWEL GAS PATTERN: Normal bowel gas pattern. No dilated loops. CALCIFICATIONS: No suspicious calcifications. SOFT TISSUES: No gross mass or suggestion of organomegaly. HARDWARE: Catheter in the bladder. Right hip prosthesis. BONES: No acute fracture. Degenerative changes in the spine. No worrisome bone lesions. OTHER: No other significant finding. IMPRESSION: NO RADIOGRAPHIC EVIDENCE FOR ACUTE ABDOMINAL DISEASE. TECHNICAL DOCUMENTATION: JOB ID: [id number] [employer]- All Rights Reserved Reading location - IP/workstation name: [email or web address]
--- NOTE | 2018-06-12 08:45 | PDOC PROGRESS REPORT ---
Subjective Progress Note for:: 06/12/18 Subjective:: Breathing remain occasionally labored with audible wheezing. Remain on supplemental oxygen at 2L/min via nasal cannula with use of BiPAP while sleeping. There is demonstrable confusion in her responses this morning. No fever or chills. No chest pain. No abdominal pain, nausea, vomiting. P.O intake remain a challenge. Reason For Visit: ADMIT TO ICU FOR PNA AND SEPSIS Physical Exam Vital Signs: Temp Pulse Resp BP Pulse Ox 98.5 F 75 19 150/59 H 96 06/12/18 03:23 06/12/18 07:00 06/12/18 03:37 06/12/18 03:23 06/12/18 03:37 Intake & Output 06/11/18 06/12/18 06/13/18 06:59 06:59 06:59 Intake Total 2627 2294 Output Total 2400 1650 Balance 227 644 Weight 73.5 kg 73.6 kg Physical Exam: General appearance: PRESENT: no acute distress, mild distress Head exam: PRESENT: atraumatic, normocephalic Eye exam: PRESENT: conjunctiva pink, EOMI, PERRLA. ABSENT: scleral icterus Ear exam: PRESENT: normal external ear exam Mouth exam: PRESENT: moist, neck supple, tongue midline Respiratory exam: PRESENT: decreased breath sounds - at lung bases Cardiovascular exam: PRESENT: irregular rhythm, +S1, +S2. ABSENT: diastolic murmur, systolic murmur Vascular exam: PRESENT: normal capillary refill. ABSENT: pallor GI/Abdominal exam: PRESENT: normal bowel sounds, soft. ABSENT: distended, guarding, mass, organomegaly, rebound, tenderness Extremities exam: PRESENT: pedal edema - resolving Musculoskeletal exam: PRESENT: deformity - related to multiple joints involvement with arthritis Neurological exam: PRESENT: alert, awake, oriented to person, oriented to place , oriented to time, oriented to situation, CN II-XII grossly intact. ABSENT: motor sensory deficit Psychiatric exam: PRESENT: appropriate affect, normal mood. ABSENT: homicidal ideation, suicidal ideation Skin exam: PRESENT: dry, warm Results Laboratory Results: 06/11/18 09:30 06/12/18 05:35 06/11/18 06/11/18 06/12/18 09:30 13:45 05:35 WBC 10.3 RBC 3.86 Hgb 9.4 L Hct 29.1 L MCV 75 L MCH 24.4 L MCHC 32.3 RDW 21.3 H Plt Count 184 Seg Neutrophils % 74.8 Lymphocytes % 14.1 Monocytes % 7.8 Eosinophils % 2.1 Basophils % 1.2 Absolute Neutrophils 7.7 Absolute Lymphocytes 1.4 Absolute Monocytes 0.8 Absolute Eosinophils 0.2 Absolute Basophils 0.1 Sodium 140.2 Potassium 3.0 L* Chloride 104 Carbon Dioxide 28 Anion Gap 8 BUN 6 L Creatinine 0.59 Est GFR ( Amer) > 60 Est GFR (Non-Af Amer) > 60 Glucose 109 Calcium 7.6 L Magnesium Stool Occult Blood NEGATIVE 06/12/18 05:35 WBC RBC Hgb Hct MCV MCH MCHC RDW Plt Count Seg Neutrophils % Lymphocytes % Monocytes % Eosinophils % Basophils % Absolute Neutrophils Absolute Lymphocytes Absolute Monocytes Absolute Eosinophils Absolute Basophils Sodium Potassium Chloride Carbon Dioxide Anion Gap BUN Creatinine Est GFR ( Amer) Est GFR (Non-Af Amer) Glucose Calcium Magnesium 1.5 L Stool Occult Blood Impressions: Chest Ultrasound 06/03/18 11:30 IMPRESSION: MODERATE BILATERAL PLEURAL EFFUSIONS. Chest X-Ray 06/11/18 00:00 IMPRESSION: 1. Stable appearance of the chest. KUB X-Ray 06/11/18 00:00 IMPRESSION: NO RADIOGRAPHIC EVIDENCE FOR ACUTE ABDOMINAL DISEASE. Assessment & Plan - Diagnosis (1) SIRS with acute organ dysfunction due to infectious process Is this a current diagnosis for this admission?: Yes (2) Lobar pneumonia, unspecified organism Is this a current diagnosis for this admission?: Yes Plan: Continue current antibiotic therapy. Obtain CBC with diff in am. (3) Grecia infection, disseminated Is this a current diagnosis for this admission?: Yes (4) Anemia due to infection Is this a current diagnosis for this admission?: Yes (5) Decompensated COPD with exacerbation (chronic obstructive pulmonary disease) Is this a current diagnosis for this admission?: Yes (6) Chronic atrial fibrillation Is this a current diagnosis for this admission?: Yes (7) HTN (hypertension) Qualifiers: Hypertension type: essential hypertension Qualified Code(s): I10 - Essential (primary) hypertension Is this a current diagnosis for this admission?: Yes (8) HLD (hyperlipidemia) Qualifiers: Hyperlipidemia type: pure hypercholesterolemia Qualified Code(s): E78.00 - Pure hypercholesterolemia, unspecified Is this a current diagnosis for this admission?: Yes (9) GERD (gastroesophageal reflux disease) Qualifiers: Esophagitis presence: esophagitis presence not specified Qualified Code(s) : K21.9 - Gastro-esophageal reflux disease without esophagitis Is this a current diagnosis for this admission?: Yes (10) Anxiety Is this a current diagnosis for this admission?: Yes (11) Depression Qualifiers: Depression Type: major depressive disorder Major depression recurrence: recurrent Active/Remission status: currently active Psychotic features: without psychotic features Is this a current diagnosis for this admission?: Yes (12) Acute delirium Is this a current diagnosis for this admission?: Yes Plan: Start on Haloperidol 0.25 mg p.o bid. (13) Electrolyte imbalance Is this a current diagnosis for this admission?: Yes Plan: Patient will receive potassium and magnesium replacement. Obtain BMP and Mag level in AM. - Time Time Spent with patient: 25-34 minutes Medications reviewed and adjusted accordingly: Yes Anticipated discharge: SNF Within: Other - Inpatient Certification Medical Necessity: Need Close Monitoring Due to Risk of Patient Decompensation, Need For IV Fluids, Need For Continuous Telemetry Monitoring, Need for Nebulizer Therapy and Monitoring of Response, Need for IV Antibiotics, Risk of Complication if Not Cared For in Hospital Post Hospital Care: D/C or Transfer Summary - Plan Summary Plan Summary: Continue IV Vancomycin, Zosyn and Diflucan coverage. Patient will receive potassium and magnesium replacement. Start on Haloperidol 0.25 mg p.o bid for acute delirium management. Continue all other current medication management. Follow up on discharge plan for SNF rehabilitation placement. Daughter express dislike for [facility] during my bedside visit today.
[2018-06-12] MEDS: PREDNISONE 5 MG TABLET NG SCH (09:09)
[2018-06-12] MEDS: MULTIVITAMIN TABLET PO SCH (09:09)
[2018-06-12] MEDS: LACTOBACILLUS ACIDOPHILUS 250 MG TAB PO SCH ×2 (09:09→17:29)
[2018-06-12] MEDS: POTASSIUM CHLORIDE 10 MEQ CAPSULE.ER PO SCH ×2 (09:09→12:46)
[2018-06-12] MEDS: APIXABAN 5 MG TABLET NG SCH ×2 (09:09→17:29)
[2018-06-12] MEDS: DOCUSATE SODIUM 100 MG CAPSULE PO SCH ×2 (09:09→17:16)
[2018-06-12] MEDS: DIGOXIN 0.25 MG TABLET NG SCH (09:09)
[2018-06-12] MEDS: VALSARTAN 160 MG TABLET PO SCH (09:10)
[2018-06-12] MEDS: HALOPERIDOL 0.5 MG TABLET PO SCH ×2 (09:12→22:09)
[2018-06-12] MEDS ORDERED: MAGNESIUM SULFATE/D5W 1 GM/100 ML RTUPB IV ONE (09:30)
[2018-06-12] MEDS: NORMAL SALINE 1000 ML 1,000 ML IV PRN (14:02)
[2018-06-12] MEDS: FLUCONAZOLE 200 MG/NS RTU 200 MG/100 ML RTUPB IV SCH (18:30)
[2018-06-12] MEDS ORDERED: VANCOMYCIN HCL INJ 1000 MG VIAL ONE (22:20)
[2018-06-12] MEDS ORDERED: VANCOMYCIN HCL INJ 500 MG VIAL ONE (23:43)
[2018-06-12] MEDS: VANCOMYCIN HCL 1,000 MG in DEXTROSE 5%-WATER 250 ML IV SCH (23:49)
[2018-06-13] MEDS: IPRATROPIUM/ALBUTEROL 0.5-2.5 MG/3 ML AMPUL NEB SCH ×4 (01:49→20:09)
[2018-06-13] MEDS: PIPERACILLIN SODIUM/TAZOBACTAM 3.375 GM in NORMAL SALINE 100 ML IV SCH ×4 (03:36→21:22)
[2018-06-13] MEDS: LANSOPRAZOLE 30 MG TAB.RAP.DR NG SCH (05:46)
[2018-06-13] MEDS: GABAPENTIN 400 MG CAPSULE NG SCH ×3 (05:47→21:24)
[2018-06-13 06:30] LABS: ABSOLUTE BASOPHILS # (AUTO) 0.1 10^3/uL (0.0-0.2); ABSOLUTE EOSINOPHILS # (AUTO) 0.4 10^3/uL (0.0-0.6); ABSOLUTE LYMPHOCYTES (AUTO) 1.3 10^3/uL (0.5-4.7); ABSOLUTE MONOCYTES (AUTO) 0.7 10^3/uL (0.1-1.4); ABSOLUTE NEUT (AUTO) 5.6 10^3/uL (1.7-8.2); BASOPHILS % (AUTO) 1.2 % (0-2); EOSINOPHILS % (AUTO) 4.8 % (0-6); HEMATOCRIT 27.1 % (36.0-47.0); HEMOGLOBIN 8.6 g/dL (12.0-15.5); LYMPHOCYTES % (AUTO) 16.4 % (13-45); MEAN CORPUSCULAR HGB CONC 31.7 g/dL (32.0-36.0); MEAN CORPUSCULAR VOLUME 76 fl (80-97); MONOCYTES % (AUTO) 8.6 % (3-13); PLATELET COUNT 133 10^3/uL (150-450); RED BLOOD COUNT 3.57 10^6/uL (3.72-5.28); RED CELL DISTRIBUTION WIDTH 21.3 % (11.5-14.0); TOTAL CELLS COUNTED % (AUTO) 100 %; WHITE BLOOD COUNT 8.1 10^3/uL (4.0-10.5)
[2018-06-13 06:46] LABS: ANION GAP 7 (5-19); BLOOD UREA NITROGEN 6 mg/dL (7-20); CALCIUM 7.5 mg/dL (8.4-10.2); CARBON DIOXIDE 28 mmol/L (22-30); CHLORIDE 106 mmol/L (98-107); GLUCOSE 111 mg/dL (75-110); POTASSIUM 3.4 mmol/L (3.6-5.0); SODIUM 140.7 mmol/L (137-145)
--- NOTE | 2018-06-13 08:28 | PDOC PROGRESS REPORT ---
Subjective Progress Note for:: 06/13/18 Subjective:: Her right IJ central vascular access is not functioning presently. No chest pain. Remain on supplemental oxygen at 2L/min via nasal cannula with use of BiPAP while sleeping. No fever or chills. No abdominal pain, nausea, vomiting. P.O intake remain a challenge. Minimal improvement in her intermittent confusional state. Reason For Visit: ADMIT TO ICU FOR PNA AND SEPSIS Physical Exam Vital Signs: Temp Pulse Resp BP Pulse Ox 98.2 F 57 L 22 H 169/82 H 100 06/13/18 03:20 06/13/18 07:00 06/13/18 03:20 06/13/18 03:20 06/13/18 03:20 Intake & Output 06/12/18 06/13/18 06/14/18 06:59 06:59 06:59 Intake Total 2394 1450 Output Total 1650 1650 Balance 744 -200 Weight 73.6 kg 75 kg Physical Exam: General appearance: PRESENT: no acute distress, mild distress Head exam: PRESENT: atraumatic, normocephalic Eye exam: PRESENT: conjunctiva pink, EOMI, PERRLA. ABSENT: scleral icterus Ear exam: PRESENT: normal external ear exam Mouth exam: PRESENT: moist, neck supple, tongue midline Respiratory exam: PRESENT: decreased breath sounds - at lung bases Cardiovascular exam: PRESENT: irregular rhythm, +S1, +S2. ABSENT: diastolic murmur, systolic murmur Vascular exam: PRESENT: normal capillary refill. ABSENT: pallor GI/Abdominal exam: PRESENT: normal bowel sounds, soft. ABSENT: distended, guarding, mass, organomegaly, rebound, tenderness Extremities exam: PRESENT: pedal edema - resolving Musculoskeletal exam: PRESENT: deformity - related to multiple joints involvement with arthritis Neurological exam: PRESENT: alert, awake, oriented to person, oriented to place , oriented to time, oriented to situation, CN II-XII grossly intact. ABSENT: motor sensory deficit Psychiatric exam: PRESENT: appropriate affect, normal mood. ABSENT: homicidal ideation, suicidal ideation Skin exam: PRESENT: dry, warm Results Laboratory Results: 06/13/18 05:50 06/13/18 05:50 06/13/18 06/13/18 05:50 05:50 WBC 8.1 RBC 3.57 L Hgb 8.6 L Hct 27.1 L MCV 76 L MCH 24.0 L MCHC 31.7 L RDW 21.3 H Plt Count 133 L Seg Neutrophils % 69.0 Lymphocytes % 16.4 Monocytes % 8.6 Eosinophils % 4.8 Basophils % 1.2 Absolute Neutrophils 5.6 Absolute Lymphocytes 1.3 Absolute Monocytes 0.7 Absolute Eosinophils 0.4 Absolute Basophils 0.1 Sodium 140.7 Potassium 3.4 L Chloride 106 Carbon Dioxide 28 Anion Gap 7 BUN 6 L Creatinine 0.60 Est GFR ( Amer) > 60 Est GFR (Non-Af Amer) > 60 Glucose 111 H Calcium 7.5 L Magnesium 1.7 Impressions: Chest Ultrasound 06/03/18 11:30 IMPRESSION: MODERATE BILATERAL PLEURAL EFFUSIONS. Chest X-Ray 06/11/18 00:00 IMPRESSION: 1. Stable appearance of the chest. KUB X-Ray 06/11/18 00:00 IMPRESSION: NO RADIOGRAPHIC EVIDENCE FOR ACUTE ABDOMINAL DISEASE. Assessment & Plan - Diagnosis (1) SIRS with acute organ dysfunction due to infectious process Is this a current diagnosis for this admission?: Yes (2) Lobar pneumonia, unspecified organism Is this a current diagnosis for this admission?: Yes (3) Grecia infection, disseminated Is this a current diagnosis for this admission?: Yes (4) Anemia due to infection Is this a current diagnosis for this admission?: Yes (5) Decompensated COPD with exacerbation (chronic obstructive pulmonary disease) Is this a current diagnosis for this admission?: Yes (6) Chronic atrial fibrillation Is this a current diagnosis for this admission?: Yes (7) HTN (hypertension) Qualifiers: Hypertension type: essential hypertension Qualified Code(s): I10 - Essential (primary) hypertension Is this a current diagnosis for this admission?: Yes (8) HLD (hyperlipidemia) Qualifiers: Hyperlipidemia type: pure hypercholesterolemia Qualified Code(s): E78.00 - Pure hypercholesterolemia, unspecified Is this a current diagnosis for this admission?: Yes (9) GERD (gastroesophageal reflux disease) Qualifiers: Esophagitis presence: esophagitis presence not specified Qualified Code(s) : K21.9 - Gastro-esophageal reflux disease without esophagitis Is this a current diagnosis for this admission?: Yes (10) Anxiety Is this a current diagnosis for this admission?: Yes (11) Depression Qualifiers: Depression Type: major depressive disorder Major depression recurrence: recurrent Active/Remission status: currently active Psychotic features: without psychotic features Is this a current diagnosis for this admission?: Yes (12) Acute delirium Is this a current diagnosis for this admission?: Yes (13) Electrolyte imbalance Is this a current diagnosis for this admission?: Yes - Time Time Spent with patient: 25-34 minutes Medications reviewed and adjusted accordingly: Yes Anticipated discharge: SNF Within: Other - Inpatient Certification Based on my medical assessment, after consideration of the patient's comorbidities, presenting symptoms, or acuity I expect that the services needed warrant INPATIENT care.: Yes I certify that my determination is in accordance with my understanding of Medicare's requirements for reasonable and necessary INPATIENT services [42 CFR 412.3e].: Yes Medical Necessity: Need Close Monitoring Due to Risk of Patient Decompensation, Need For IV Fluids, Need For Continuous Telemetry Monitoring, Need for Nebulizer Therapy and Monitoring of Response, Need for IV Antibiotics, Risk of Complication if Not Cared For in Hospital Post Hospital Care: D/C or Transfer Summary - Plan Summary Plan Summary: Continue current medication management. Increase Haloperidol to 0.5mg p.o q12 hours. Potassium and Magnesium replacement in progress. Follow up on disposition plan. Surgicalist consult to evaluate central line for replacement.
[2018-06-13] MEDS ORDERED: MAGNESIUM SULFATE/D5W 1 GM/100 ML RTUPB IV ONE (09:00)
[2018-06-13] MEDS: PREDNISONE 5 MG TABLET NG SCH (09:15)
[2018-06-13] MEDS: APIXABAN 5 MG TABLET NG SCH ×2 (09:15→17:54)
[2018-06-13] MEDS: VALSARTAN 160 MG TABLET PO SCH (09:15)
[2018-06-13] MEDS: DOCUSATE SODIUM 100 MG CAPSULE PO SCH ×2 (09:16→17:54)
[2018-06-13] MEDS: HALOPERIDOL 0.5 MG TABLET PO SCH ×2 (09:16→21:24)
[2018-06-13] MEDS: DIGOXIN 0.25 MG TABLET NG SCH (09:16)
[2018-06-13] MEDS: POTASSIUM CHLORIDE 10 MEQ CAPSULE.ER PO SCH ×2 (09:16→15:35)
[2018-06-13] MEDS: MULTIVITAMIN TABLET PO SCH (09:16)
[2018-06-13] MEDS: LACTOBACILLUS ACIDOPHILUS 250 MG TAB PO SCH ×2 (09:17→17:54)
[2018-06-13] MEDS: FLUCONAZOLE 200 MG/NS RTU 200 MG/100 ML RTUPB IV SCH (21:10)
[2018-06-14] MEDS: IPRATROPIUM/ALBUTEROL 0.5-2.5 MG/3 ML AMPUL NEB SCH ×4 (01:43→20:04)
[2018-06-14] MEDS ORDERED: PHENYTOIN SODIUM INJ/PF 250 MG/5 ML SDV ONE (02:02)
[2018-06-14] MEDS ORDERED: LORAZEPAM INJ 2 MG/1 ML VIAL ONE (02:53)
--- NOTE | 2018-06-14 02:55 | RADIOLOGY REPORT (SQ) ---
CT head without contrast on 06/14/2018 at 2:35 AM CLINICAL INDICATION: Seizure TECHNIQUE: Multiple axial images are obtained throughout the head without the administration of contrast. This exam was performed according to our departmental dose-optimization program, which includes automated exposure control, adjustment of the mA and/or kV according to patient size and/or use of iterative reconstruction technique. Total DLP is 2167.98 mGy*cm. COMPARISON: 04/05/2014 FINDINGS: Patient motion limits the exam despite repeated imaging. There is some low-density in the posterior occipital white matter also involving the left frontal subcortical white matter. Etiology to consider would be posterior reversible encephalopathy syndrome. Please correlate if the patient is hypertensive. MRI with and without contrast when the patient is able to remain still would be useful to better evaluate. There is no hydrocephalus. There is no hemorrhage. There are no abnormal extra-axial fluid collections. No mass effect or midline shift is noted. No bony abnormality is noted. IMPRESSION: Bilateral low-density areas in the white matter that may be related to posterior reversible encephalopathy syndrome. Recommend correlation with patient's history and follow-up MRI with and without contrast could better evaluate as other underlying lesions are not excluded on this exam.
[2018-06-14] MEDS ORDERED: MIDAZOLAM HCL 50 MG/100 ML RTUINJ ONE (03:22)
[2018-06-14] MEDS ORDERED: NORMAL SALINE IV ONE (03:30)
[2018-06-14] MEDS ORDERED: PHENYTOIN SODIUM IV ONE (03:30)
[2018-06-14 03:36] LABS: ALANINE AMINOTRANSFERASE 28 U/L (9-52); ALBUMIN 2.5 g/dL (3.5-5.0); ALKALINE PHOSPHATASE 107 U/L (38-126); ANION GAP 14 (5-19); ASPARTATE AMINO TRANSFERASE 40 U/L (14-36); BILIRUBIN,DIRECT 0.4 mg/dL (0.0-0.4); BILIRUBIN,TOTAL 0.8 mg/dL (0.2-1.3); BLOOD UREA NITROGEN 7 mg/dL (7-20); CARBON DIOXIDE 21 mmol/L (22-30); CHLORIDE 107 mmol/L (98-107); GLUCOSE 197 mg/dL (75-110); SODIUM 141.6 mmol/L (137-145); TOTAL PROTEIN 5.3 g/dL (6.3-8.2)
[2018-06-14 03:38] LABS: ARTERIAL BLOOD BASE EXCESS -6.1 mmol/L; ARTERIAL BLOOD FIO2 100%; ARTERIAL BLOOD H2CO3 1.32 mmol/L (1.05-1.35); ARTERIAL BLOOD HCO3 20.4 mmol/L (20-26); ARTERIAL BLOOD O2 SATURATION 98.5 % (94-98); ARTERIAL BLOOD PCO2 43.9 mmHg (35-45); ARTERIAL BLOOD PH 7.28 (7.35-7.45); ARTERIAL BLOOD PO2 139.7 mmHg (80-100); ARTERIAL BLOOD TOTAL CO2 21.7 mmol/L (21-25)
[2018-06-14 03:45] LABS: POTASSIUM 5.1 mmol/L (3.6-5.0)
[2018-06-14] MEDS: ACETAMINOPHEN 325 MG TABLET PO PRN ×3 (03:49→13:29)
[2018-06-14] MEDS: MIDAZOLAM HCL 50 MG/100 ML RTUINJ IV PRN ×4 (03:49→21:05)
[2018-06-14] MEDS: NORMAL SALINE 1000 ML 1,000 ML IV PRN ×2 (03:50→08:15)
[2018-06-14] MEDS: PIPERACILLIN SODIUM/TAZOBACTAM 3.375 GM in NORMAL SALINE 100 ML IV SCH ×2 (03:50→08:15)
[2018-06-14 03:51] LABS: HEMOGLOBIN 10.3 g/dL (12.0-15.5); MEAN CORPUSCULAR HEMOGLOBIN 23.5 pg (27.0-33.4); MEAN CORPUSCULAR HGB CONC 30.2 g/dL (32.0-36.0); MEAN CORPUSCULAR VOLUME 78 fl (80-97); PLATELET COUNT 170 10^3/uL (150-450); RED BLOOD COUNT 4.37 10^6/uL (3.72-5.28); RED CELL DISTRIBUTION WIDTH 21.7 % (11.5-14.0)
--- NOTE | 2018-06-14 03:54 | RADIOLOGY REPORT (SQ) ---
EXAM DESCRIPTION: XR CHEST 1 VIEW COMPLETED DATE/TME: 06/14/2018 00:00 CLINICAL HISTORY: 73 years Female, ET Tube placement COMPARISON: 3 days prior. NUMBER OF VIEWS/TECHNIQUE: 1/AP FINDINGS: Tip of an endotracheal tube is 1.7 cm from the jenny; recommend 3 cm retraction of the endotracheal tube. Mild interstitial markings, moderate right basilar opacity-effusion, normal cardiac silhouette size, right jugular central line tip at the mid right atrium, and adequate appearing enteric tube. Overlying leads-pads. No pneumothorax. No acute bone defect. IMPRESSION: Tip of an endotracheal tube is 1.7 cm from the jenny; recommend 3 cm retraction of the endotracheal tube.
[2018-06-14 04:05] LABS: WHITE BLOOD COUNT 23.5 10^3/uL (4.0-10.5)
[2018-06-14] MEDS ORDERED: PROPOFOL 1,000 MG/100 ML INFUS..BTL IV ONE (04:08)
[2018-06-14 04:14] LABS: ABSOLUTE LYMPHOCYTES# (MANUAL) 2.6 10^3/uL (0.5-4.7); ABSOLUTE MONOCYTES # (MANUAL) 2.1 10^3/uL (0.1-1.4); ABSOLUTE NEUTROPHILS# (MANUAL) 18.8 10^3/uL (1.7-8.2); BASOPHILS % (MANUAL) 0 % (0-2); EOSINOPHILS % (MANUAL) 0 % (0-6); LYMPHOCYTES % (MANUAL) 11 % (13-45); MONOCYTES % (MANUAL) 9 % (3-13); SEGMENTED NEUTROPHILS % (MAN) 80 % (42-78); TOTAL CELLS COUNTED 100; TOXIC GRANULATION SLIGHT
[2018-06-14 04:15] LABS: ANISOCYTOSIS 3+; BURR CELLS 1+; HELMET CELLS 1+; OVALOCYTES 1+; PAPPENHEIMER BODIES PRESENT; PLATELET COMMENT ADEQUATE; PLATELET GIANT PRESENT; PLATELET LARGE PRESENT; POIKILOCYTOSIS 2+; SCHISTOCYTES 1+
[2018-06-14] MEDS: PROPOFOL 1,000 MG/100 ML INFUS..BTL IV PRN (04:42)
[2018-06-14] MEDS ORDERED: LORAZEPAM INJ 2 MG/1 ML VIAL IV ONE (04:45)
[2018-06-14] MEDS: GABAPENTIN 400 MG CAPSULE NG SCH ×3 (06:21→21:06)
[2018-06-14] MEDS: LANSOPRAZOLE 30 MG TAB.RAP.DR NG SCH (06:22)
--- NOTE | 2018-06-14 08:28 | PDOC PROGRESS REPORT ---
Subjective Progress Note for:: 06/14/18 Subjective:: Patient had two episodes of tonic-clonic seizure activities since last evaluation resulted in her transfer to ICU and reintubation to protect her airway and managed associated hypoxemia. No recurrent episode since treatment with IV Dilantin loading load and current sedation on ventilatory support. No reported fever but there was associated elevated systolic blood pressure in stage 1 hypertension range. She is currently sedate and vent supported. Family at bedside. Reason For Visit: ADMIT TO ICU FOR PNA AND SEPSIS Physical Exam Vital Signs: Temp Pulse Resp BP Pulse Ox 102.6 F H 105 H 28 H 105/43 L 100 06/14/18 07:46 06/14/18 02:40 06/14/18 07:46 06/14/18 07:46 06/14/18 07:46 Intake & Output 06/13/18 06/14/18 06/15/18 06:59 06:59 06:59 Intake Total 1550 1830 Output Total 1650 1475 Balance -100 355 Weight 75 kg 67.8 kg Head exam: PRESENT: atraumatic, normocephalic Eye exam: PRESENT: conjunctiva pink, PERRLA Ear exam: PRESENT: normal external ear exam Mouth exam: PRESENT: moist - fairly with ET and OG tubes in situ Respiratory exam: PRESENT: clear to auscultation cas, decreased breath sounds - at lung bases Cardiovascular exam: PRESENT: RRR. ABSENT: diastolic murmur, rubs, systolic murmur Vascular exam: PRESENT: normal capillary refill. ABSENT: pallor GI/Abdominal exam: PRESENT: normal bowel sounds, soft. ABSENT: distended, guarding, mass, organolmegaly, rebound, tenderness Rectal exam: PRESENT: deferred Extremities exam: ABSENT: pedal edema Musculoskeletal exam: PRESENT: normal inspection Neurological exam: PRESENT: altered - sedated Psychiatric exam: PRESENT: other - limited due to current state of sedation Skin exam: PRESENT: dry, warm Results Laboratory Results: 06/14/18 03:05 06/14/18 03:05 06/14/18 06/14/18 06/14/18 03:00 03:05 03:05 WBC 23.5 H D RBC 4.37 Hgb 10.3 L Hct 34.0 L MCV 78 L MCH 23.5 L MCHC 30.2 L RDW 21.7 H Plt Count 170 Seg Neutrophils % Not Reportable Lymphocytes % Not Reportable Monocytes % Not Reportable Eosinophils % Not Reportable Basophils % Not Reportable Absolute Neutrophils Not Reportable Absolute Lymphocytes Not Reportable Absolute Monocytes Not Reportable Absolute Eosinophils Not Reportable Absolute Basophils Not Reportable Carbonic Acid 1.32 HCO3/H2CO3 Ratio 15:1 ABG pH 7.28 L ABG pCO2 43.9 ABG pO2 139.7 H ABG HCO3 20.4 ABG O2 Saturation 98.5 H ABG Base Excess -6.1 FiO2 100% Sodium 141.6 Potassium 5.1 H D Chloride 107 Carbon Dioxide 21 L Anion Gap 14 BUN 7 Creatinine 0.70 Est GFR ( Amer) > 60 Est GFR (Non-Af Amer) > 60 Glucose 197 H Calcium 8.0 L Magnesium 1.7 Total Bilirubin 0.8 AST 40 H ALT 28 Alkaline Phosphatase 107 Total Protein 5.3 L Albumin 2.5 L Impressions: Chest Ultrasound 06/03/18 11:30 IMPRESSION: MODERATE BILATERAL PLEURAL EFFUSIONS. KUB X-Ray 06/11/18 00:00 IMPRESSION: NO RADIOGRAPHIC EVIDENCE FOR ACUTE ABDOMINAL DISEASE. Chest X-Ray 06/14/18 00:00 IMPRESSION: Tip of an endotracheal tube is 1.7 cm from the jenny; recommend 3 cm retraction of the endotracheal tube. Head CT 06/14/18 00:00 IMPRESSION: Bilateral low-density areas in the white matter that may be related to posterior reversible encephalopathy syndrome. Recommend correlation with patient's history and follow-up MRI with and without contrast could better evaluate as other underlying lesions are not excluded on this exam. Assessment & Plan - Diagnosis (1) SIRS with acute organ dysfunction due to infectious process Is this a current diagnosis for this admission?: Yes Plan: See attending physician orders. (2) Lobar pneumonia, unspecified organism Is this a current diagnosis for this admission?: Yes Plan: See attending physician orders. (3) Grecia infection, disseminated Is this a current diagnosis for this admission?: Yes Plan: See attending physician orders. (4) Anemia due to infection Is this a current diagnosis for this admission?: Yes Plan: See attending physician orders. (5) Decompensated COPD with exacerbation (chronic obstructive pulmonary disease) Is this a current diagnosis for this admission?: Yes Plan: See attending physician orders. Pulmonary consult with Dr Heath, clip coater. Dr Brenner is currently not available. (6) Chronic atrial fibrillation Is this a current diagnosis for this admission?: Yes Plan: See attending physician orders. (7) HTN (hypertension) Qualifiers: Hypertension type: essential hypertension Qualified Code(s): I10 - Essential (primary) hypertension Is this a current diagnosis for this admission?: Yes Plan: See attending physician orders. (8) HLD (hyperlipidemia) Qualifiers: Hyperlipidemia type: pure hypercholesterolemia Qualified Code(s): E78.00 - Pure hypercholesterolemia, unspecified Is this a current diagnosis for this admission?: Yes Plan: See attending physician orders. (9) GERD (gastroesophageal reflux disease) Qualifiers: Esophagitis presence: esophagitis presence not specified Qualified Code(s) : K21.9 - Gastro-esophageal reflux disease without esophagitis Is this a current diagnosis for this admission?: Yes Plan: See attending physician orders. (10) Anxiety Is this a current diagnosis for this admission?: Yes Plan: See attending physician orders. (11) Depression Qualifiers: Depression Type: major depressive disorder Major depression recurrence: recurrent Active/Remission status: currently active Psychotic features: without psychotic features Is this a current diagnosis for this admission?: Yes Plan: See attending physician orders. (12) Acute delirium Is this a current diagnosis for this admission?: Yes Plan: See attending physician orders. (13) Electrolyte imbalance Is this a current diagnosis for this admission?: Yes Plan: See attending physician orders. (14) Tonic-clonic seizure disorder Is this a current diagnosis for this admission?: Yes Plan: See attending physician orders. I will request for neurology service input in her management. - Time Time Spent with patient: 35 or more minutes Medications reviewed and adjusted accordingly: Yes Anticipated discharge: SNF Within: Other - Inpatient Certification Based on my medical assessment, after consideration of the patient's comorbidities, presenting symptoms, or acuity I expect that the services needed warrant INPATIENT care.: Yes I certify that my determination is in accordance with my understanding of Medicare's requirements for reasonable and necessary INPATIENT services [42 CFR 412.3e].: Yes Medical Necessity: Need Close Monitoring Due to Risk of Patient Decompensation, Need For IV Fluids, Need For Continuous Telemetry Monitoring, Need for Nebulizer Therapy and Monitoring of Response, Need for IV Antibiotics, Risk of Complication if Not Cared For in Hospital Post Hospital Care: D/C or Transfer Summary - Plan Summary Plan Summary: See attending physician orders.
[2018-06-14] MEDS: CLINDAMYCIN 600 MG/D5W RTU 600 MG/50 ML RTUPB IV SCH ×2 (09:42→18:24)
[2018-06-14] MEDS: LACTOBACILLUS ACIDOPHILUS 250 MG TAB PO SCH ×2 (09:42→18:23)
[2018-06-14] MEDS: MULTIVITAMIN TABLET PO SCH (09:42)
[2018-06-14] MEDS: DOCUSATE SODIUM 100 MG CAPSULE PO SCH ×2 (09:43→18:24)
[2018-06-14] MEDS: HALOPERIDOL 0.5 MG TABLET PO SCH (09:43)
[2018-06-14] MEDS: DIGOXIN 0.25 MG TABLET NG SCH (09:43)
[2018-06-14] MEDS: VALSARTAN 160 MG TABLET PO SCH (09:43)
[2018-06-14 10:10] LABS: ARTERIAL BLOOD BASE EXCESS -2.4 mmol/L; ARTERIAL BLOOD FIO2 40%; ARTERIAL BLOOD H2CO3 0.76 mmol/L (1.05-1.35); ARTERIAL BLOOD HCO3 19.8 mmol/L (20-26); ARTERIAL BLOOD O2 SATURATION 96.6 % (94-98); ARTERIAL BLOOD PCO2 25.1 mmHg (35-45); ARTERIAL BLOOD PH 7.52 (7.35-7.45); ARTERIAL BLOOD TOTAL CO2 20.6 mmol/L (21-25)
[2018-06-14] MEDS ORDERED: EPINEPHRINE INJ 1 MG/10 ML DISP.SYRIN ONE (10:26)
[2018-06-14] MEDS: PHENYTOIN 100 MG/4 ML SUSP PO SCH ×3 (11:07→21:06)
[2018-06-14] MEDS: PREDNISONE 5 MG TABLET NG SCH (11:07)
[2018-06-14] MEDS: APIXABAN 5 MG TABLET NG SCH ×2 (11:07→18:23)
[2018-06-14 11:24] LABS: ARTERIAL BLOOD H2CO3 0.85 mmol/L (1.05-1.35); ARTERIAL BLOOD HCO3 20.8 mmol/L (20-26); ARTERIAL BLOOD O2 SATURATION 94.8 % (94-98); ARTERIAL BLOOD PCO2 28.3 mmHg (35-45); ARTERIAL BLOOD PH 7.49 (7.35-7.45); ARTERIAL BLOOD PO2 66.7 mmHg (80-100); ARTERIAL BLOOD TOTAL CO2 21.7 mmol/L (21-25)
[2018-06-14 11:26] LABS: ARTERIAL BLOOD FIO2 30%
[2018-06-14] MEDS ORDERED: PHENYTOIN 100 MG/4 ML SUSP PO ONE (11:30)
[2018-06-14 14:06] LABS: ARTERIAL BLOOD BASE EXCESS -1.9 mmol/L; ARTERIAL BLOOD H2CO3 1.04 mmol/L (1.05-1.35); ARTERIAL BLOOD HCO3 22.2 mmol/L (20-26); ARTERIAL BLOOD PCO2 34.7 mmHg (35-45); ARTERIAL BLOOD PH 7.42 (7.35-7.45); ARTERIAL BLOOD PO2 78.9 mmHg (80-100); ARTERIAL BLOOD TOTAL CO2 23.2 mmol/L (21-25)
[2018-06-14 14:08] LABS: ARTERIAL BLOOD FIO2 30%
[2018-06-14 16:09] LABS: ABSOLUTE BASOPHILS # (AUTO) 0.1 10^3/uL (0.0-0.2); ABSOLUTE LYMPHOCYTES (AUTO) 1.1 10^3/uL (0.5-4.7); ABSOLUTE MONOCYTES (AUTO) 0.6 10^3/uL (0.1-1.4); ABSOLUTE NEUT (AUTO) 7.7 10^3/uL (1.7-8.2); BASOPHILS % (AUTO) 0.9 % (0-2); EOSINOPHILS % (AUTO) 0.4 % (0-6); HEMATOCRIT 25.9 % (36.0-47.0); HEMOGLOBIN 8.4 g/dL (12.0-15.5); LYMPHOCYTES % (AUTO) 11.3 % (13-45); MEAN CORPUSCULAR HEMOGLOBIN 24.6 pg (27.0-33.4); MEAN CORPUSCULAR HGB CONC 32.3 g/dL (32.0-36.0); MEAN CORPUSCULAR VOLUME 76 fl (80-97); MONOCYTES % (AUTO) 6.2 % (3-13); PLATELET COUNT 103 10^3/uL (150-450); RED BLOOD COUNT 3.41 10^6/uL (3.72-5.28); RED CELL DISTRIBUTION WIDTH 22.2 % (11.5-14.0); SEGMENTED NEUTROPHILS % (AUTO) 81.2 % (42-78); TOTAL CELLS COUNTED % (AUTO) 100 %; WHITE BLOOD COUNT 9.4 10^3/uL (4.0-10.5)
[2018-06-14 16:30] LABS: ANION GAP 10 (5-19); BLOOD UREA NITROGEN 10 mg/dL (7-20); CALCIUM 7.2 mg/dL (8.4-10.2); CARBON DIOXIDE 22 mmol/L (22-30); CHLORIDE 109 mmol/L (98-107); GLUCOSE 109 mg/dL (75-110); SODIUM 140.6 mmol/L (137-145)
[2018-06-14 17:01] LABS: POTASSIUM 4.1 mmol/L (3.6-5.0)
[2018-06-14] MEDS ORDERED: SUCCINYLCHOLINE CHLORIDE INJ 200 MG/10 ML VIAL ONE (19:14)
[2018-06-14] MEDS: FLUCONAZOLE 200 MG/NS RTU 200 MG/100 ML RTUPB IV SCH (21:07)
[2018-06-15] MEDS: HALOPERIDOL 0.5 MG TABLET PO SCH ×3 (00:28→21:34)
[2018-06-15] MEDS: VANCOMYCIN HCL 1,000 MG in DEXTROSE 5%-WATER 250 ML IV SCH ×3 (00:36→22:22)
[2018-06-15] MEDS: IPRATROPIUM/ALBUTEROL 0.5-2.5 MG/3 ML AMPUL NEB SCH ×4 (02:21→19:59)
[2018-06-15] MEDS: CLINDAMYCIN 600 MG/D5W RTU 600 MG/50 ML RTUPB IV SCH ×3 (03:59→18:11)
[2018-06-15] MEDS: NORMAL SALINE 1000 ML 1,000 ML IV PRN ×2 (04:00→21:35)
[2018-06-15 05:33] LABS: ARTERIAL BLOOD BASE EXCESS -2.5 mmol/L; ARTERIAL BLOOD H2CO3 1.01 mmol/L (1.05-1.35); ARTERIAL BLOOD HCO3 21.5 mmol/L (20-26); ARTERIAL BLOOD PCO2 33.5 mmHg (35-45); ARTERIAL BLOOD PH 7.43 (7.35-7.45); ARTERIAL BLOOD PO2 78.6 mmHg (80-100); ARTERIAL BLOOD TOTAL CO2 22.5 mmol/L (21-25)
[2018-06-15] MEDS: PHENYTOIN 100 MG/4 ML SUSP PO SCH ×3 (05:33→21:34)
[2018-06-15] MEDS: GABAPENTIN 400 MG CAPSULE NG SCH ×3 (05:34→21:34)
[2018-06-15] MEDS: LANSOPRAZOLE 30 MG TAB.RAP.DR NG SCH (05:34)
[2018-06-15 05:40] LABS: ARTERIAL BLOOD FIO2 30%
[2018-06-15 05:55] LABS: PHOSPHORUS 3.9 mg/dL (2.5-4.5)
--- NOTE | 2018-06-15 07:40 | RADIOLOGY REPORT (SQ) ---
EXAM DESCRIPTION: XR CHEST 1 VIEW COMPLETED DATE/TME: 06/15/2018 06:00 CLINICAL HISTORY: 73 years Female, acute resp failuure/pna COMPARISON: One day prior. NUMBER OF VIEWS/TECHNIQUE: 1/AP FINDINGS: Tip of an endotracheal tube is 1.6 cm from the jenny, partially obscured; consider 3 cm retraction of the endotracheal tube. Right jugular central line tip at the mid right atrium; recommend 5 cm retraction. Mild central edema pattern, multi focal opacities includes small patchy opacity of the right midlung field and moderate hazy opacity-layered effusion of bilateral lower hemithoraces. Normal cardiac silhouette. Mild dextroconvexity. Atherosclerosis. No pneumothorax. No acute bone defect. IMPRESSION: No significant change.Tip of an endotracheal tube is 1.6 cm from the jenny, partially obscured; consider 3 cm retraction of the endotracheal tube.
[2018-06-15] MEDS: MIDAZOLAM HCL 50 MG/100 ML RTUINJ IV PRN ×2 (11:51→21:35)
[2018-06-15] MEDS: PREDNISONE 5 MG TABLET NG SCH (11:52)
[2018-06-15] MEDS: APIXABAN 5 MG TABLET NG SCH ×2 (11:53→18:12)
[2018-06-15] MEDS: VALSARTAN 160 MG TABLET PO SCH (11:53)
[2018-06-15] MEDS: DIGOXIN 0.25 MG TABLET NG SCH (11:53)
[2018-06-15] MEDS: MULTIVITAMIN TABLET PO SCH (11:55)
[2018-06-15] MEDS: DOCUSATE SODIUM 100 MG CAPSULE PO SCH ×2 (11:55→17:48)
--- NOTE | 2018-06-15 16:11 | PDOC PROGRESS REPORT ---
Subjective Progress Note for:: 06/15/18 Subjective:: Patient remain intubated, sedated, and vent supported. No recurrent seizure activity. No reported fever. Family at bedside. Reason For Visit: ADMIT TO ICU FOR PNA AND SEPSIS Physical Exam Vital Signs: Temp Pulse Resp BP Pulse Ox 97.2 F 67 18 115/53 L 96 06/15/18 05:17 06/15/18 14:21 06/15/18 14:21 06/14/18 18:46 06/15/18 14:21 Intake & Output 06/14/18 06/15/18 06/16/18 06:59 06:59 06:59 Intake Total 2030 1732 100 Output Total 1475 595 235 Balance 555 1137 -135 Weight 67.8 kg 71.2 kg Physical Exam: Head exam: PRESENT: atraumatic, normocephalic Eye exam: PRESENT: conjunctiva pink, PERRLA Ear exam: PRESENT: normal external ear exam Mouth exam: PRESENT: moist - fairly with ET and OG tubes in situ Respiratory exam: PRESENT: clear to auscultation cas, decreased breath sounds - at lung bases Cardiovascular exam: PRESENT: RRR. ABSENT: diastolic murmur, rubs, systolic murmur Vascular exam: PRESENT: normal capillary refill. ABSENT: pallor GI/Abdominal exam: PRESENT: normal bowel sounds, soft. ABSENT: distended, guarding, mass, organomegaly, rebound, tenderness Rectal exam: PRESENT: deferred Extremities exam: ABSENT: pedal edema Musculoskeletal exam: PRESENT: normal inspection Neurological exam: PRESENT: altered - sedated Psychiatric exam: PRESENT: other - limited due to current state of sedation Skin exam: PRESENT: dry, warm Results Laboratory Results: 06/14/18 15:50 06/14/18 15:50 06/14/18 06/14/18 06/15/18 15:50 15:50 05:25 WBC 9.4 RBC 3.41 L Hgb 8.4 L Hct 25.9 L MCV 76 L MCH 24.6 L MCHC 32.3 RDW 22.2 H Plt Count 103 L Seg Neutrophils % 81.2 H Lymphocytes % 11.3 L Monocytes % 6.2 Eosinophils % 0.4 Basophils % 0.9 Absolute Neutrophils 7.7 Absolute Lymphocytes 1.1 Absolute Monocytes 0.6 Absolute Eosinophils 0.0 Absolute Basophils 0.1 Carbonic Acid 1.01 L HCO3/H2CO3 Ratio 21:1 ABG pH 7.43 ABG pCO2 33.5 L ABG pO2 78.6 L ABG HCO3 21.5 ABG O2 Saturation 96.0 ABG Base Excess -2.5 FiO2 30% Sodium 140.6 Potassium 4.1 D Chloride 109 H Carbon Dioxide 22 Anion Gap 10 BUN 10 Creatinine 0.69 Est GFR ( Amer) > 60 Est GFR (Non-Af Amer) > 60 Glucose 109 Calcium 7.2 L Phosphorus Magnesium 06/15/18 05:25 WBC RBC Hgb Hct MCV MCH MCHC RDW Plt Count Seg Neutrophils % Lymphocytes % Monocytes % Eosinophils % Basophils % Absolute Neutrophils Absolute Lymphocytes Absolute Monocytes Absolute Eosinophils Absolute Basophils Carbonic Acid HCO3/H2CO3 Ratio ABG pH ABG pCO2 ABG pO2 ABG HCO3 ABG O2 Saturation ABG Base Excess FiO2 Sodium Potassium Chloride Carbon Dioxide Anion Gap BUN Creatinine Est GFR ( Amer) Est GFR (Non-Af Amer) Glucose Calcium Phosphorus 3.9 Magnesium 1.6 Impressions: Chest Ultrasound 06/03/18 11:30 IMPRESSION: MODERATE BILATERAL PLEURAL EFFUSIONS. KUB X-Ray 06/11/18 00:00 IMPRESSION: NO RADIOGRAPHIC EVIDENCE FOR ACUTE ABDOMINAL DISEASE. Head CT 06/14/18 00:00 IMPRESSION: Bilateral low-density areas in the white matter that may be related to posterior reversible encephalopathy syndrome. Recommend correlation with patient's history and follow-up MRI with and without contrast could better evaluate as other underlying lesions are not excluded on this exam. Chest X-Ray 06/15/18 06:00 IMPRESSION: No significant change.Tip of an endotracheal tube is 1.6 cm from the jenny, partially obscured; consider 3 cm retraction of the endotracheal tube. Assessment & Plan - Diagnosis (1) SIRS with acute organ dysfunction due to infectious process Is this a current diagnosis for this admission?: Yes (2) Lobar pneumonia, unspecified organism Is this a current diagnosis for this admission?: Yes (3) Grecia infection, disseminated Is this a current diagnosis for this admission?: Yes (4) Anemia due to infection Is this a current diagnosis for this admission?: Yes (5) Decompensated COPD with exacerbation (chronic obstructive pulmonary disease) Is this a current diagnosis for this admission?: Yes (6) Chronic atrial fibrillation Is this a current diagnosis for this admission?: Yes (7) HTN (hypertension) Qualifiers: Hypertension type: essential hypertension Qualified Code(s): I10 - Essential (primary) hypertension Is this a current diagnosis for this admission?: Yes (8) HLD (hyperlipidemia) Qualifiers: Hyperlipidemia type: pure hypercholesterolemia Qualified Code(s): E78.00 - Pure hypercholesterolemia, unspecified Is this a current diagnosis for this admission?: Yes (9) GERD (gastroesophageal reflux disease) Qualifiers: Esophagitis presence: esophagitis presence not specified Qualified Code(s) : K21.9 - Gastro-esophageal reflux disease without esophagitis Is this a current diagnosis for this admission?: Yes (10) Anxiety Is this a current diagnosis for this admission?: Yes (11) Depression Qualifiers: Depression Type: major depressive disorder Major depression recurrence: recurrent Active/Remission status: currently active Psychotic features: without psychotic features Is this a current diagnosis for this admission?: Yes (12) Acute delirium Is this a current diagnosis for this admission?: Yes (13) Electrolyte imbalance Is this a current diagnosis for this admission?: Yes (14) Tonic-clonic seizure disorder Is this a current diagnosis for this admission?: Yes - Time Time Spent with patient: 25-34 minutes Medications reviewed and adjusted accordingly: Yes Anticipated discharge: SNF Within: Other - Inpatient Certification Based on my medical assessment, after consideration of the patient's comorbidities, presenting symptoms, or acuity I expect that the services needed warrant INPATIENT care.: Yes I certify that my determination is in accordance with my understanding of Medicare's requirements for reasonable and necessary INPATIENT services [42 CFR 412.3e].: Yes Medical Necessity: Need Close Monitoring Due to Risk of Patient Decompensation, Need For IV Fluids, Need For Continuous Telemetry Monitoring, Need for Nebulizer Therapy and Monitoring of Response, Need for IV Antibiotics, Risk of Complication if Not Cared For in Hospital Post Hospital Care: D/C or Transfer Summary - Plan Summary Plan Summary: Her ET will be pulled up 2cm. Continue all other current medication management. Start enteral tube feeding with Oxepa and advance rate as tolerated. Start on Beneprotein 2 packet tid via OG tube.
--- NOTE | 2018-06-15 17:06 | RADIOLOGY REPORT (SQ) ---
EXAM DESCRIPTION: CHEST SINGLE VIEW COMPLETED DATE/TIME: 06/15/2018 4:43 pm REASON FOR STUDY: ET TUBE PLACEMENT COMPARISON: 06/15/2018 EXAM PARAMETERS: NUMBER OF VIEWS: One view. TECHNIQUE: Single frontal radiographic view of the chest acquired. RADIATION DOSE: NA LIMITATIONS: None. FINDINGS: LUNGS AND PLEURA: Right pleural effusion. Opacification in the left base. Opacification in the right upper lobe. MEDIASTINUM AND HILAR STRUCTURES: No masses. Contour normal. HEART AND VASCULAR STRUCTURES: Cardiomegaly. Pulmonary vascular congestion but no jill edema. BONES: No acute findings. HARDWARE: Right internal jugular catheter remains in place. Endotracheal tube has its tip 3 cm above the jenny. OTHER: No other significant finding. IMPRESSION: Right pleural effusion. Possible multicentric pneumonia. Endotracheal tube as nicholas dBetzy TECHNICAL DOCUMENTATION: JOB ID: [id number] [employer]- All Rights Reserved Reading location - IP/workstation name: [email or web address]
[2018-06-15] MEDS: PROPOFOL 1,000 MG/100 ML INFUS..BTL IV PRN (22:23)
[2018-06-15 22:36] LABS: VANCOMYCIN,TROUGH 10.3 ug/mL (5.0-20.0)
[2018-06-16] MEDS: IPRATROPIUM/ALBUTEROL 0.5-2.5 MG/3 ML AMPUL NEB SCH ×4 (01:19→20:14)
[2018-06-16] MEDS: CLINDAMYCIN 600 MG/D5W RTU 600 MG/50 ML RTUPB IV SCH ×3 (02:34→17:34)
[2018-06-16] MEDS: PHENYTOIN 100 MG/4 ML SUSP PO SCH ×3 (06:23→21:42)
[2018-06-16] MEDS: GABAPENTIN 400 MG CAPSULE NG SCH ×3 (06:23→21:42)
[2018-06-16] MEDS: PROPOFOL 1,000 MG/100 ML INFUS..BTL IV PRN ×3 (06:23→18:32)
[2018-06-16] MEDS: LANSOPRAZOLE 30 MG TAB.RAP.DR NG SCH (06:24)
[2018-06-16] MEDS: MIDAZOLAM HCL 50 MG/100 ML RTUINJ IV PRN (06:24)
[2018-06-16 06:44] LABS: ARTERIAL BLOOD BASE EXCESS -3.3 mmol/L; ARTERIAL BLOOD H2CO3 0.98 mmol/L (1.05-1.35); ARTERIAL BLOOD HCO3 20.6 mmol/L (20-26); ARTERIAL BLOOD O2 SATURATION 94.8 % (94-98); ARTERIAL BLOOD PCO2 32.6 mmHg (35-45); ARTERIAL BLOOD PH 7.42 (7.35-7.45); ARTERIAL BLOOD PO2 71.1 mmHg (80-100); ARTERIAL BLOOD TOTAL CO2 21.6 mmol/L (21-25)
[2018-06-16 06:47] LABS: ARTERIAL BLOOD FIO2 24%
[2018-06-16 07:00] LABS: ABSOLUTE BASOPHILS # (AUTO) 0.1 10^3/uL (0.0-0.2); ABSOLUTE EOSINOPHILS # (AUTO) 0.6 10^3/uL (0.0-0.6); ABSOLUTE LYMPHOCYTES (AUTO) 1.4 10^3/uL (0.5-4.7); ABSOLUTE MONOCYTES (AUTO) 0.6 10^3/uL (0.1-1.4); ABSOLUTE NEUT (AUTO) 3.9 10^3/uL (1.7-8.2); BASOPHILS % (AUTO) 0.9 % (0-2); EOSINOPHILS % (AUTO) 9.2 % (0-6); HEMATOCRIT 24.5 % (36.0-47.0); MEAN CORPUSCULAR HEMOGLOBIN 24.6 pg (27.0-33.4); MEAN CORPUSCULAR VOLUME 77 fl (80-97); MONOCYTES % (AUTO) 8.6 % (3-13); RED BLOOD COUNT 3.19 10^6/uL (3.72-5.28); RED CELL DISTRIBUTION WIDTH 22.5 % (11.5-14.0); SEGMENTED NEUTROPHILS % (AUTO) 60.3 % (42-78); TOTAL CELLS COUNTED % (AUTO) 100 %; WHITE BLOOD COUNT 6.5 10^3/uL (4.0-10.5)
[2018-06-16 07:01] LABS: ANION GAP 8 (5-19); BLOOD UREA NITROGEN 7 mg/dL (7-20); CALCIUM 7.4 mg/dL (8.4-10.2); CARBON DIOXIDE 22 mmol/L (22-30); CHLORIDE 109 mmol/L (98-107); GLUCOSE 94 mg/dL (75-110); POTASSIUM 3.1 mmol/L (3.6-5.0); SODIUM 138.8 mmol/L (137-145)
[2018-06-16 07:45] LABS: PLATELET COUNT 94 10^3/uL (150-450)
[2018-06-16 08:22] LABS: HEMOGLOBIN 7.8 g/dL (12.0-15.5)
[2018-06-16] MEDS: POTASSIUM CHLORIDE 20 MEQ/50 ML RTU IV SCH ×2 (09:56→11:53)
[2018-06-16] MEDS: DIGOXIN 0.25 MG TABLET NG SCH (09:58)
[2018-06-16] MEDS: PREDNISONE 5 MG TABLET NG SCH (09:58)
[2018-06-16] MEDS: APIXABAN 5 MG TABLET NG SCH ×2 (09:59→17:34)
[2018-06-16] MEDS: DOCUSATE SODIUM 100 MG CAPSULE PO SCH ×2 (09:59→17:34)
[2018-06-16] MEDS: VALSARTAN 160 MG TABLET PO SCH (09:59)
[2018-06-16] MEDS: HALOPERIDOL 0.5 MG TABLET PO SCH ×3 (09:59→21:43)
[2018-06-16] MEDS: MULTIVITAMIN ORAL LIQUID 60 ML PO SCH (10:00)
[2018-06-16 12:19] LABS: FIBRINOGEN 359 mg/dL (209-497); INTERNATIONAL RATION (INR) 1.12; PARTIAL THROMBOPLASTIN TIME 28.1 SEC (23.5-35.8)
--- NOTE | 2018-06-16 12:42 | RADIOLOGY REPORT (SQ) ---
EXAM DESCRIPTION: CHEST SINGLE VIEW COMPLETED DATE/TIME: 06/16/2018 11:55 am REASON FOR STUDY: pna/resp failure COMPARISON: 06/15/2018. EXAM PARAMETERS: NUMBER OF VIEWS: One view. TECHNIQUE: Single frontal radiographic view of the chest acquired. RADIATION DOSE: NA LIMITATIONS: None. FINDINGS: LUNGS AND PLEURA: Airspace consolidation right upper lobe with airspace infiltrates in [place] th bases with pleural effusions right greater than left. MEDIASTINUM AND HILAR STRUCTURES: No masses. Contour normal. HEART AND VASCULAR STRUCTURES: The heart is borderline in size. Pulmonary vasculature is normal. BONES: Old left rib fractures. HARDWARE: None in the chest. OTHER: Right IJ line overlying right atrium. Endotracheal tube above jenny. NG tube overlying stom ach. . IMPRESSION: Right upper lobe alveolar infiltrate or pneumonia. Bibasilar infiltrates and effusions. TECHNICAL DOCUMENTATION: JOB ID: [id number] [employer]- All Rights Reserved Reading location - IP/workstation name: [email or web address]
--- NOTE | 2018-06-16 16:43 | PDOC PROGRESS REPORT ---
Subjective Progress Note for:: 06/16/18 Subjective:: Patient is back in ICU intubated, she had episode of seizure intubated for airway protection Reason For Visit: ADMIT TO ICU FOR PNA AND SEPSIS Physical Exam Vital Signs: Temp Pulse Resp BP Pulse Ox 97.2 F 65 25 H 115/53 L 98 06/16/18 04:57 06/16/18 14:06 06/16/18 14:06 06/14/18 18:46 06/16/18 16:03 Intake & Output 06/15/18 06/16/18 06/17/18 06:59 06:59 06:59 Intake Total 1982 1459 256 Output Total 595 780 845 Balance 1387 679 -589 Weight 71.2 kg 71.6 kg Respiratory exam: PRESENT: clear to auscultation cas Cardiovascular exam: PRESENT: +S1, +S2 GI/Abdominal exam: PRESENT: soft Results Laboratory Results: 06/16/18 06/16/18 06/16/18 06:15 06:15 06:15 WBC 6.5 RBC 3.19 L Hgb 7.8 L Hct 24.5 L MCV 77 L MCH 24.6 L MCHC 32.0 RDW 22.5 H Plt Count 94 L Seg Neutrophils % 60.3 Lymphocytes % 21.0 Monocytes % 8.6 Eosinophils % 9.2 H Basophils % 0.9 Absolute Neutrophils 3.9 Absolute Lymphocytes 1.4 Absolute Monocytes 0.6 Absolute Eosinophils 0.6 Absolute Basophils 0.1 Carbonic Acid 0.98 L HCO3/H2CO3 Ratio 21:1 ABG pH 7.42 ABG pCO2 32.6 L ABG pO2 71.1 L ABG HCO3 20.6 ABG O2 Saturation 94.8 ABG Base Excess -3.3 FiO2 24% Sodium 138.8 Potassium 3.1 L Chloride 109 H Carbon Dioxide 22 Anion Gap 8 BUN 7 Creatinine 0.61 Est GFR ( Amer) > 60 Est GFR (Non-Af Amer) > 60 Glucose 94 Calcium 7.4 L Magnesium 1.6 Impressions: Chest Ultrasound 06/03/18 11:30 IMPRESSION: MODERATE BILATERAL PLEURAL EFFUSIONS. KUB X-Ray 06/11/18 00:00 IMPRESSION: NO RADIOGRAPHIC EVIDENCE FOR ACUTE ABDOMINAL DISEASE. Head CT 06/14/18 00:00 IMPRESSION: Bilateral low-density areas in the white matter that may be related to posterior reversible encephalopathy syndrome. Recommend correlation with patient's history and follow-up MRI with and without contrast could better evaluate as other underlying lesions are not excluded on this exam. Chest X-Ray 06/16/18 00:00 IMPRESSION: Right upper lobe alveolar infiltrate or pneumonia. Bibasilar infiltrates and effusions. Assessment & Plan - Diagnosis (1) Septicemia Is this a current diagnosis for this admission?: Yes (2) Pneumonia Qualifiers: Pneumonia type: due to methicillin-resistant Staphylococcus aureus (MRSA) Laterality: bilateral Lung location: unspecified part of lung Qualified Code (s): J15.212 - Pneumonia due to Methicillin resistant Staphylococcus aureus Is this a current diagnosis for this admission?: Yes (3) Acute respiratory failure with hypoxemia Is this a current diagnosis for this admission?: Yes (4) COPD (chronic obstructive pulmonary disease) Qualifiers: COPD type: unspecified COPD Qualified Code(s): J44.9 - Chronic obstructive pulmonary disease, unspecified Is this a current diagnosis for this admission?: Yes (5) Atrial fibrillation with rapid ventricular response Is this a current diagnosis for this admission?: Yes (6) MRSA pneumonia Qualifiers: Laterality: bilateral Is this a current diagnosis for this admission?: Yes (7) Hypokalemia Is this a current diagnosis for this admission?: Yes Plan: This is most likely from transcellular shift
[2018-06-16 16:44] LABS: ABSOLUTE BASOPHILS # (AUTO) 0.1 10^3/uL (0.0-0.2); ABSOLUTE EOSINOPHILS # (AUTO) 0.3 10^3/uL (0.0-0.6); ABSOLUTE LYMPHOCYTES (AUTO) 0.8 10^3/uL (0.5-4.7); ABSOLUTE MONOCYTES (AUTO) 0.5 10^3/uL (0.1-1.4); ABSOLUTE NEUT (AUTO) 4.9 10^3/uL (1.7-8.2); BASOPHILS % (AUTO) 0.9 % (0-2); EOSINOPHILS % (AUTO) 4.6 % (0-6); HEMATOCRIT 26.4 % (36.0-47.0); HEMOGLOBIN 8.3 g/dL (12.0-15.5); LYMPHOCYTES % (AUTO) 12.6 % (13-45); MEAN CORPUSCULAR HEMOGLOBIN 24.2 pg (27.0-33.4); MEAN CORPUSCULAR HGB CONC 31.6 g/dL (32.0-36.0); MEAN CORPUSCULAR VOLUME 77 fl (80-97); MONOCYTES % (AUTO) 6.9 % (3-13); PLATELET COUNT 126 10^3/uL (150-450); RED BLOOD COUNT 3.45 10^6/uL (3.72-5.28); RED CELL DISTRIBUTION WIDTH 23.2 % (11.5-14.0); TOTAL CELLS COUNTED % (AUTO) 100 %; WHITE BLOOD COUNT 6.5 10^3/uL (4.0-10.5)
[2018-06-16] MEDS: NORMAL SALINE 1000 ML 1,000 ML IV PRN (19:53)
[2018-06-16] MEDS: VANCOMYCIN HCL 1,000 MG in DEXTROSE 5%-WATER 250 ML IV SCH (21:43)
[2018-06-17] MEDS ORDERED: ACETAMINOPHEN SOLN 325 MG/10.15 ML UDCUP ONE (00:37)
[2018-06-17] MEDS: CLINDAMYCIN 600 MG/D5W RTU 600 MG/50 ML RTUPB IV SCH ×3 (01:31→17:34)
[2018-06-17] MEDS: NORMAL SALINE 1000 ML 1,000 ML IV PRN ×2 (01:31→22:49)
[2018-06-17] MEDS: IPRATROPIUM/ALBUTEROL 0.5-2.5 MG/3 ML AMPUL NEB SCH ×4 (02:40→20:48)
[2018-06-17] MEDS: PROPOFOL 1,000 MG/100 ML INFUS..BTL IV PRN ×5 (03:42→21:50)
[2018-06-17] MEDS: GABAPENTIN 400 MG CAPSULE NG SCH ×3 (06:10→22:50)
[2018-06-17] MEDS: LANSOPRAZOLE 30 MG TAB.RAP.DR NG SCH (06:10)
[2018-06-17] MEDS: PHENYTOIN 100 MG/4 ML SUSP PO SCH ×3 (06:10→22:50)
[2018-06-17 06:41] LABS: ABSOLUTE BASOPHILS # (AUTO) 0.1 10^3/uL (0.0-0.2); ABSOLUTE EOSINOPHILS # (AUTO) 0.4 10^3/uL (0.0-0.6); ABSOLUTE LYMPHOCYTES (AUTO) 1.5 10^3/uL (0.5-4.7); ABSOLUTE MONOCYTES (AUTO) 0.6 10^3/uL (0.1-1.4); ABSOLUTE NEUT (AUTO) 3.1 10^3/uL (1.7-8.2); BASOPHILS % (AUTO) 0.9 % (0-2); EOSINOPHILS % (AUTO) 7.4 % (0-6); HEMATOCRIT 23.7 % (36.0-47.0); LYMPHOCYTES % (AUTO) 26.3 % (13-45); MEAN CORPUSCULAR HEMOGLOBIN 24.7 pg (27.0-33.4); MEAN CORPUSCULAR HGB CONC 32.2 g/dL (32.0-36.0); MEAN CORPUSCULAR VOLUME 77 fl (80-97); MONOCYTES % (AUTO) 10.5 % (3-13); PLATELET COUNT 123 10^3/uL (150-450); RED BLOOD COUNT 3.09 10^6/uL (3.72-5.28); RED CELL DISTRIBUTION WIDTH 23.2 % (11.5-14.0); SEGMENTED NEUTROPHILS % (AUTO) 54.9 % (42-78); TOTAL CELLS COUNTED % (AUTO) 100 %; WHITE BLOOD COUNT 5.7 10^3/uL (4.0-10.5)
[2018-06-17 07:00] LABS: ANION GAP 8 (5-19); BLOOD UREA NITROGEN 7 mg/dL (7-20); CALCIUM 7.6 mg/dL (8.4-10.2); CARBON DIOXIDE 22 mmol/L (22-30); CHLORIDE 110 mmol/L (98-107); GLUCOSE 117 mg/dL (75-110); HEMOGLOBIN 7.6 g/dL (12.0-15.5); POTASSIUM 3.9 mmol/L (3.6-5.0); SODIUM 139.7 mmol/L (137-145); TRIGLYCERIDES 193 mg/dL (<150)
--- NOTE | 2018-06-17 07:40 | RADIOLOGY REPORT (SQ) ---
EXAM DESCRIPTION: XR CHEST 1 VIEW COMPLETED DATE/TME: 06/17/2018 06:00 CLINICAL HISTORY: 73 years Female, pna/resp failure COMPARISON: One day prior. NUMBER OF VIEWS/TECHNIQUE: 1/AP FINDINGS: Moderate bibasilar opacity-effusion, moderate streaky opacity of the right upper lobe, normal cardiac silhouette, mild interstitial markings, tip of an endotracheal tube is 3 cm from the jenny, adequate appearing enteric tube, right jugular central line tip at the inferior right atrium; recommend 9.4 cm retraction of the right jugular central line. No pneumothorax. No acute bone defect. IMPRESSION: No significant change.
[2018-06-17] MEDS: DOCUSATE SODIUM 100 MG CAPSULE PO SCH ×2 (09:31→17:35)
[2018-06-17] MEDS: APIXABAN 5 MG TABLET NG SCH ×2 (09:31→17:34)
[2018-06-17] MEDS: HALOPERIDOL 0.5 MG TABLET PO SCH ×2 (09:32→22:50)
[2018-06-17] MEDS: PREDNISONE 5 MG TABLET NG SCH (09:33)
[2018-06-17] MEDS: VALSARTAN 160 MG TABLET PO SCH (09:33)
[2018-06-17] MEDS: DIGOXIN 0.25 MG TABLET NG SCH (09:35)
[2018-06-17] MEDS: MULTIVITAMIN ORAL LIQUID 60 ML PO SCH (09:35)
[2018-06-17] MEDS: INSULIN LISPRO 100 UNIT/ML 3 ML VIAL SUBCUT PRN ×2 (11:53→17:36)
--- NOTE | 2018-06-17 12:24 | PDOC PROGRESS REPORT ---
Subjective Progress Note for:: 06/17/18 Subjective:: Patient was seen by the bedside, the nursing staff indicated that patient's family is requesting for transfer to [place], I spoke to the spouse, I did not see a clear indication for transfer of this patient at this time but I advised the spouse to speak to the attending physician DR Fowler Reason For Visit: ADMIT TO ICU FOR PNA AND SEPSIS Physical Exam Vital Signs: Temp Pulse Resp BP Pulse Ox 99.7 F 81 25 H 135/42 H 96 06/17/18 12:00 06/17/18 11:28 06/17/18 12:00 06/17/18 11:59 06/17/18 12:00 Intake & Output 06/16/18 06/17/18 06/18/18 06:59 06:59 06:59 Intake Total 1709 2687 160 Output Total 780 1905 400 Balance 929 782 -240 Weight 71.6 kg 74.3 kg General appearance: PRESENT: no acute distress Respiratory exam: PRESENT: clear to auscultation cas Cardiovascular exam: PRESENT: +S1, +S2 GI/Abdominal exam: PRESENT: soft Neurological exam: PRESENT: other - Sedated and intubated Results Laboratory Results: 06/17/18 06:20 06/17/18 06:20 06/16/18 06/16/18 06/17/18 16:10 16:10 06:20 WBC 6.5 RBC 3.45 L Hgb 8.3 L Hct 26.4 L MCV 77 L MCH 24.2 L MCHC 31.6 L RDW 23.2 H Plt Count 126 L Seg Neutrophils % 75.0 Lymphocytes % 12.6 L Monocytes % 6.9 Eosinophils % 4.6 Basophils % 0.9 Absolute Neutrophils 4.9 Absolute Lymphocytes 0.8 Absolute Monocytes 0.5 Absolute Eosinophils 0.3 Absolute Basophils 0.1 Sodium 139.7 Potassium 4.7 D 3.9 Chloride 110 H Carbon Dioxide 22 Anion Gap 8 BUN 7 Creatinine 0.54 Est GFR ( Amer) > 60 Est GFR (Non-Af Amer) > 60 Glucose 117 H Calcium 7.6 L Magnesium 1.7 Triglycerides 193 H Blood Type Antibody Screen 06/17/18 06/17/18 06:20 07:53 WBC 5.7 RBC 3.09 L Hgb 7.6 L Hct 23.7 L MCV 77 L MCH 24.7 L MCHC 32.2 RDW 23.2 H Plt Count 123 L Seg Neutrophils % 54.9 Lymphocytes % 26.3 Monocytes % 10.5 Eosinophils % 7.4 H Basophils % 0.9 Absolute Neutrophils 3.1 Absolute Lymphocytes 1.5 Absolute Monocytes 0.6 Absolute Eosinophils 0.4 Absolute Basophils 0.1 Sodium Potassium Chloride Carbon Dioxide Anion Gap BUN Creatinine Est GFR ( Amer) Est GFR (Non-Af Amer) Glucose Calcium Magnesium Triglycerides Blood Type A POSITIVE Antibody Screen NEGATIVE Impressions: Chest Ultrasound 06/03/18 11:30 IMPRESSION: MODERATE BILATERAL PLEURAL EFFUSIONS. KUB X-Ray 06/11/18 00:00 IMPRESSION: NO RADIOGRAPHIC EVIDENCE FOR ACUTE ABDOMINAL DISEASE. Head CT 06/14/18 00:00 IMPRESSION: Bilateral low-density areas in the white matter that may be related to posterior reversible encephalopathy syndrome. Recommend correlation with patient's history and follow-up MRI with and without contrast could better evaluate as other underlying lesions are not excluded on this exam. Chest X-Ray 06/17/18 06:00 IMPRESSION: No significant change. Assessment & Plan - Diagnosis (1) Septicemia Is this a current diagnosis for this admission?: Yes (2) Pneumonia Qualifiers: Pneumonia type: due to methicillin-resistant Staphylococcus aureus (MRSA) Laterality: bilateral Lung location: unspecified part of lung Qualified Code (s): J15.212 - Pneumonia due to Methicillin resistant Staphylococcus aureus Is this a current diagnosis for this admission?: Yes (3) Acute respiratory failure with hypoxemia Is this a current diagnosis for this admission?: Yes (4) COPD (chronic obstructive pulmonary disease) Qualifiers: COPD type: unspecified COPD Qualified Code(s): J44.9 - Chronic obstructive pulmonary disease, unspecified Is this a current diagnosis for this admission?: Yes (5) Atrial fibrillation with rapid ventricular response Is this a current diagnosis for this admission?: Yes (6) MRSA pneumonia Qualifiers: Laterality: bilateral Is this a current diagnosis for this admission?: Yes (7) Hypokalemia Is this a current diagnosis for this admission?: Yes - Plan Summary Plan Summary: Continue treatment
[2018-06-17] MEDS: ACETAMINOPHEN 325 MG TABLET PO PRN (13:53)
[2018-06-17 17:29] LABS: APPEARANCE,URINE CLEAR; BILIRUBIN,URINE NEGATIVE (NEGATIVE); COLOR,URINE YELLOW; GLUCOSE, URINE NEGATIVE (NEGATIVE); KETONES,URINE NEGATIVE (NEGATIVE); LEUKOCYTE ESTERASE,URINE NEGATIVE (NEGATIVE); NITRITE,URINE NEGATIVE (NEGATIVE); PROTEIN,URINE NEGATIVE (NEGATIVE); URINE SPECIFIC GRAVITY 1.009; UROBILINOGEN,URINE NEGATIVE mg/dL (<2.0)
[2018-06-17 18:50] LABS: ARTERIAL BLOOD BASE EXCESS -1.7 mmol/L; ARTERIAL BLOOD H2CO3 0.85 mmol/L (1.05-1.35); ARTERIAL BLOOD HCO3 20.8 mmol/L (20-26); ARTERIAL BLOOD O2 SATURATION 94.8 % (94-98); ARTERIAL BLOOD PCO2 28.3 mmHg (35-45); ARTERIAL BLOOD PH 7.48 (7.35-7.45); ARTERIAL BLOOD PO2 66.6 mmHg (80-100); ARTERIAL BLOOD TOTAL CO2 21.7 mmol/L (21-25)
[2018-06-17 18:57] LABS: HEMATOCRIT 31.2 % (36.0-47.0); MEAN CORPUSCULAR HEMOGLOBIN 25.2 pg (27.0-33.4); MEAN CORPUSCULAR HGB CONC 32.6 g/dL (32.0-36.0); MEAN CORPUSCULAR VOLUME 77 fl (80-97); PLATELET COUNT 157 10^3/uL (150-450); RED BLOOD COUNT 4.04 10^6/uL (3.72-5.28); RED CELL DISTRIBUTION WIDTH 22.1 % (11.5-14.0); WHITE BLOOD COUNT 7.1 10^3/uL (4.0-10.5)
[2018-06-17 18:58] LABS: HEMOGLOBIN 10.2 g/dL (12.0-15.5)
[2018-06-17 19:08] LABS: ARTERIAL BLOOD FIO2 25%
[2018-06-17] MEDS ORDERED: MIDAZOLAM 2 MG/2 ML INJ IV PRN (19:27)
[2018-06-17] MEDS: VANCOMYCIN HCL 1,000 MG in DEXTROSE 5%-WATER 250 ML IV SCH (22:49)
[2018-06-18] MEDS: IPRATROPIUM/ALBUTEROL 0.5-2.5 MG/3 ML AMPUL NEB SCH ×5 (01:32→19:59)
[2018-06-18] MEDS: PROPOFOL 1,000 MG/100 ML INFUS..BTL IV PRN ×2 (02:34→06:57)
[2018-06-18] MEDS: CLINDAMYCIN 600 MG/D5W RTU 600 MG/50 ML RTUPB IV SCH ×3 (02:38→17:16)
[2018-06-18] MEDS: PHENYTOIN 100 MG/4 ML SUSP PO SCH (06:57)
[2018-06-18] MEDS: GABAPENTIN 400 MG CAPSULE NG SCH ×3 (06:57→22:38)
[2018-06-18] MEDS: LANSOPRAZOLE 30 MG TAB.RAP.DR NG SCH (06:58)
[2018-06-18 07:20] LABS: ABSOLUTE BASOPHILS # (AUTO) 0.1 10^3/uL (0.0-0.2); ABSOLUTE EOSINOPHILS # (AUTO) 0.6 10^3/uL (0.0-0.6); ABSOLUTE LYMPHOCYTES (AUTO) 1.8 10^3/uL (0.5-4.7); ABSOLUTE MONOCYTES (AUTO) 0.6 10^3/uL (0.1-1.4); ABSOLUTE NEUT (AUTO) 2.3 10^3/uL (1.7-8.2); BASOPHILS % (AUTO) 1.3 % (0-2); EOSINOPHILS % (AUTO) 11.8 % (0-6); HEMATOCRIT 33.1 % (36.0-47.0); HEMOGLOBIN 10.7 g/dL (12.0-15.5); LYMPHOCYTES % (AUTO) 33.9 % (13-45); MEAN CORPUSCULAR HEMOGLOBIN 25.1 pg (27.0-33.4); MEAN CORPUSCULAR HGB CONC 32.5 g/dL (32.0-36.0); MEAN CORPUSCULAR VOLUME 77 fl (80-97); MONOCYTES % (AUTO) 10.9 % (3-13); PLATELET COUNT 158 10^3/uL (150-450); RED BLOOD COUNT 4.28 10^6/uL (3.72-5.28); RED CELL DISTRIBUTION WIDTH 22.5 % (11.5-14.0); SEGMENTED NEUTROPHILS % (AUTO) 42.1 % (42-78); TOTAL CELLS COUNTED % (AUTO) 100 %; WHITE BLOOD COUNT 5.4 10^3/uL (4.0-10.5)
--- NOTE | 2018-06-18 07:20 | RADIOLOGY REPORT (SQ) ---
EXAM DESCRIPTION: CHEST SINGLE VIEW COMPLETED DATE/TIME: 06/18/2018 6:56 am REASON FOR STUDY: pna/resp fail COMPARISON: Chest films 06/17/2018, 06/16/2018, 06/15/2018, 06/04/2018 EXAM PARAMETERS: NUMBER OF VIEWS: One view. TECHNIQUE: Single frontal radiographic view of the chest acquired. RADIATION DOSE: NA LIMITATIONS: None. FINDINGS: LUNGS AND PLEURA: Trace right pleural fluid, unchanged. Minimal bibasilar consolidation likely atelectasis. Pneumonia could not be excluded. No pneumothorax MEDIASTINUM AND HILAR STRUCTURES: No masses. Contour normal. HEART AND VASCULAR STRUCTURES: No cardiomegaly. BONES: No acute findings. HARDWARE: Endotracheal tube tip 3 to 4 cm above the jenny. Nasogastric tube tip and side port in th e stomach. Right jugular central line tip in the right atrium. OTHER: No other significant finding. IMPRESSION: No change from yesterday TECHNICAL DOCUMENTATION: JOB ID: [id number] [employer]- All Rights Reserved Reading location - IP/workstation name: [email or web address]
[2018-06-18 07:28] LABS: ARTERIAL BLOOD BASE EXCESS -2.2 mmol/L; ARTERIAL BLOOD H2CO3 0.98 mmol/L (1.05-1.35); ARTERIAL BLOOD HCO3 21.4 mmol/L (20-26); ARTERIAL BLOOD O2 SATURATION 94.5 % (94-98); ARTERIAL BLOOD PCO2 32.7 mmHg (35-45); ARTERIAL BLOOD PH 7.43 (7.35-7.45); ARTERIAL BLOOD TOTAL CO2 22.4 mmol/L (21-25)
[2018-06-18 07:29] LABS: ARTERIAL BLOOD FIO2 25%
[2018-06-18 07:30] LABS: ANION GAP 9 (5-19)
[2018-06-18] MEDS: ALBUTEROL SULFATE 0.083% NEB 2.5 MG/3 ML AMPUL NEB PRN (07:34)
[2018-06-18 07:57] LABS: BLOOD UREA NITROGEN 8 mg/dL (7-20); CALCIUM 7.7 mg/dL (8.4-10.2); CARBON DIOXIDE 21 mmol/L (22-30); CHLORIDE 112 mmol/L (98-107); GLUCOSE 100 mg/dL (75-110); POTASSIUM 4.1 mmol/L (3.6-5.0); SODIUM 141.6 mmol/L (137-145)
--- NOTE | 2018-06-18 08:31 | PDOC PROGRESS REPORT ---
Subjective Progress Note for:: 06/18/18 Subjective:: I had extensive discussion with daughter and spouse at bedside regarding request for transfer to [facility] on the pretest of need for neurology consultation. There is no more seizure on current medication therapy including Gabapentin and Dilantin since her incidental seizure episodes and intubation for protection of her airway. No reported fever. Tolerating enteral tube feeding. Attempt at weaning yesterday resulted in need for increase sedation as per nursing report at bedside this morning. Reason For Visit: ADMIT TO ICU FOR PNA AND SEPSIS Physical Exam Vital Signs: Temp Pulse Resp BP Pulse Ox 97.2 F 54 L 20 122/50 L 96 06/18/18 07:50 06/18/18 07:50 06/18/18 07:50 06/18/18 07:50 06/18/18 07:50 Intake & Output 06/17/18 06/18/18 06/19/18 06:59 06:59 06:59 Intake Total 2687 3094 Output Total 1905 1480 300 Balance 782 1614 -300 Weight 74.3 kg 76.9 kg Physical Exam: Head exam: PRESENT: atraumatic, normocephalic Eye exam: PRESENT: conjunctiva pink, PERRLA Ear exam: PRESENT: normal external ear exam Mouth exam: PRESENT: ET and OG tubes in situ Respiratory exam: PRESENT: clear to auscultation cas, decreased breath sounds - at lung bases Cardiovascular exam: PRESENT: RRR. ABSENT: diastolic murmur, rubs, systolic murmur Vascular exam: PRESENT: normal capillary refill. ABSENT: pallor GI/Abdominal exam: PRESENT: normal bowel sounds, soft. ABSENT: distended, guarding, mass, organomegaly, rebound, tenderness Rectal exam: PRESENT: deferred Extremities exam: ABSENT: pedal edema Musculoskeletal exam: PRESENT: normal inspection Neurological exam: PRESENT: altered - sedated Psychiatric exam: PRESENT: other - limited due to current state of sedation Skin exam: PRESENT: dry, warm Results Laboratory Results: 06/18/18 07:00 06/18/18 07:00 06/17/18 06/17/18 06/17/18 07:53 17:10 18:30 WBC RBC Hgb Hct MCV MCH MCHC RDW Plt Count Seg Neutrophils % Lymphocytes % Monocytes % Eosinophils % Basophils % Absolute Neutrophils Absolute Lymphocytes Absolute Monocytes Absolute Eosinophils Absolute Basophils Carbonic Acid 0.85 L HCO3/H2CO3 Ratio 24:1 ABG pH 7.48 H ABG pCO2 28.3 L ABG pO2 66.6 L ABG HCO3 20.8 ABG O2 Saturation 94.8 ABG Base Excess -1.7 FiO2 25% Sodium Potassium Chloride Carbon Dioxide Anion Gap BUN Creatinine Est GFR ( Amer) Est GFR (Non-Af Amer) Glucose Calcium Magnesium Urine Color YELLOW Urine Appearance CLEAR Urine pH 6.0 Ur Specific [place] 1.009 Urine Protein NEGATIVE Urine Glucose (UA) NEGATIVE Urine Ketones NEGATIVE Urine Blood NEGATIVE Urine Nitrite NEGATIVE Ur Leukocyte Esterase NEGATIVE Urine WBC (Auto) 2 Urine RBC (Auto) 0 Blood Type A POSITIVE Antibody Screen NEGATIVE 06/17/18 06/18/18 06/18/18 18:30 07:00 07:00 WBC 7.1 RBC 4.04 Hgb 10.2 L D Hct 31.2 L MCV 77 L MCH 25.2 L MCHC 32.6 RDW 22.1 H Plt Count 157 Seg Neutrophils % Lymphocytes % Monocytes % Eosinophils % Basophils % Absolute Neutrophils Absolute Lymphocytes Absolute Monocytes Absolute Eosinophils Absolute Basophils Carbonic Acid 0.98 L HCO3/H2CO3 Ratio 21:1 ABG pH 7.43 ABG pCO2 32.7 L ABG pO2 69.0 L ABG HCO3 21.4 ABG O2 Saturation 94.5 ABG Base Excess -2.2 FiO2 25% Sodium 141.6 Potassium 4.1 Chloride 112 H Carbon Dioxide 21 L Anion Gap 9 BUN 8 Creatinine 0.53 Est GFR ( Amer) > 60 Est GFR (Non-Af Amer) > 60 Glucose 100 Calcium 7.7 L Magnesium 1.8 Urine Color Urine Appearance Urine pH Ur Specific [place] Urine Protein Urine Glucose (UA) Urine Ketones Urine Blood Urine Nitrite Ur Leukocyte Esterase Urine WBC (Auto) Urine RBC (Auto) Blood Type Antibody Screen 06/18/18 07:00 WBC 5.4 RBC 4.28 Hgb 10.7 L Hct 33.1 L MCV 77 L MCH 25.1 L MCHC 32.5 RDW 22.5 H Plt Count 158 Seg Neutrophils % 42.1 Lymphocytes % 33.9 Monocytes % 10.9 Eosinophils % 11.8 H Basophils % 1.3 Absolute Neutrophils 2.3 Absolute Lymphocytes 1.8 Absolute Monocytes 0.6 Absolute Eosinophils 0.6 Absolute Basophils 0.1 Carbonic Acid HCO3/H2CO3 Ratio ABG pH ABG pCO2 ABG pO2 ABG HCO3 ABG O2 Saturation ABG Base Excess FiO2 Sodium Potassium Chloride Carbon Dioxide Anion Gap BUN Creatinine Est GFR ( Amer) Est GFR (Non-Af Amer) Glucose Calcium Magnesium Urine Color Urine Appearance Urine pH Ur Specific [place] Urine Protein Urine Glucose (UA) Urine Ketones Urine Blood Urine Nitrite Ur Leukocyte Esterase Urine WBC (Auto) Urine RBC (Auto) Blood Type Antibody Screen Impressions: Chest Ultrasound 06/03/18 11:30 IMPRESSION: MODERATE BILATERAL PLEURAL EFFUSIONS. KUB X-Ray 06/11/18 00:00 IMPRESSION: NO RADIOGRAPHIC EVIDENCE FOR ACUTE ABDOMINAL DISEASE. Head CT 06/14/18 00:00 IMPRESSION: Bilateral low-density areas in the white matter that may be related to posterior reversible encephalopathy syndrome. Recommend correlation with patient's history and follow-up MRI with and without contrast could better evaluate as other underlying lesions are not excluded on this exam. Chest X-Ray 06/18/18 06:00 IMPRESSION: No change from yesterday Assessment & Plan - Diagnosis (1) SIRS with acute organ dysfunction due to infectious process Is this a current diagnosis for this admission?: Yes (2) Lobar pneumonia, unspecified organism Is this a current diagnosis for this admission?: Yes (3) G[place]ia infection, disseminated Is this a current diagnosis for this admission?: Yes (4) Anemia due to infection Is this a current diagnosis for this admission?: Yes (5) Decompensated COPD with exacerbation (chronic obstructive pulmonary disease) Is this a current diagnosis for this admission?: Yes (6) Chronic atrial fibrillation Is this a current diagnosis for this admission?: Yes (7) HTN (hypertension) Qualifiers: Hypertension type: essential hypertension Qualified Code(s): I10 - Essential (primary) hypertension Is this a current diagnosis for this admission?: Yes (8) HLD (hyperlipidemia) Qualifiers: Hyperlipidemia type: pure hypercholesterolemia Qualified Code(s): E78.00 - Pure hypercholesterolemia, unspecified Is this a current diagnosis for this admission?: Yes (9) GERD (gastroesophageal reflux disease) Qualifiers: Esophagitis presence: esophagitis presence not specified Qualified Code(s) : K21.9 - Gastro-esophageal reflux disease without esophagitis Is this a current diagnosis for this admission?: Yes (10) Anxiety Is this a current diagnosis for this admission?: Yes (11) Depression Qualifiers: Depression Type: major depressive disorder Major depression recurrence: recurrent Active/Remission status: currently active Psychotic features: without psychotic features Is this a current diagnosis for this admission?: Yes (12) Acute delirium Is this a current diagnosis for this admission?: Yes (13) Electrolyte imbalance Is this a current diagnosis for this admission?: Yes (14) Tonic-clonic seizure disorder Is this a current diagnosis for this admission?: Yes - Time Time Spent with patient: 25-34 minutes Medications reviewed and adjusted accordingly: Yes Anticipated discharge: SNF Within: Other - Inpatient Certification Based on my medical assessment, after consideration of the patient's comorbidities, presenting symptoms, or acuity I expect that the services needed warrant INPATIENT care.: Yes I certify that my determination is in accordance with my understanding of Medicare's requirements for reasonable and necessary INPATIENT services [42 CFR 412.3e].: Yes Medical Necessity: Need Close Monitoring Due to Risk of Patient Decompensation, Need For IV Fluids, Need For Continuous Telemetry Monitoring, Need for Nebulizer Therapy and Monitoring of Response, Need for IV Antibiotics, Risk of Complication if Not Cared For in Hospital Post Hospital Care: D/C or Transfer Summary - Plan Summary Plan Summary: Continue current medication management. I will discuss her pulmonary status with Dr. Heath in view of total duration of intubation. I will discuss the issue of transfer to [facility] if her pulmonary status warrant further intensive intervention.
[2018-06-18] MEDS: DOCUSATE SODIUM 100 MG CAPSULE PO SCH ×2 (09:09→17:16)
[2018-06-18] MEDS: MULTIVITAMIN ORAL LIQUID 60 ML PO SCH (09:25)
[2018-06-18] MEDS: VALSARTAN 160 MG TABLET PO SCH (09:25)
[2018-06-18] MEDS: APIXABAN 5 MG TABLET NG SCH ×2 (09:25→17:27)
[2018-06-18] MEDS: PREDNISONE 5 MG TABLET NG SCH (09:25)
[2018-06-18] MEDS: HALOPERIDOL 0.5 MG TABLET PO SCH (09:26)
[2018-06-18] MEDS: DIGOXIN 0.25 MG TABLET NG SCH (09:26)
[2018-06-18] MEDS: MULTIVITAMIN ORAL LIQUID 60 ML NG SCH (09:58)
[2018-06-18] MEDS ORDERED: DEXAMETHASONE SOD PHOSPHATE INJ 4 MG/1 ML VIAL IV ONE (10:00)
[2018-06-18] MEDS: FUROSEMIDE INJ/PF 20 MG/2 ML SDV IV SCH ×2 (10:00→22:37)
[2018-06-18] MEDS: HALOPERIDOL 0.5 MG TABLET NG SCH ×2 (11:23→22:38)
--- NOTE | 2018-06-18 11:45 | PDOC CONSULTATION ---
Consultation Consult Date: 06/14/18 Attending physician:: STELLA NESBITT Consult reason:: Acute respiratory failure/pneumonia History of Present Illness Admission Date/PCP: 05/24/18 19:53 STELLA NESBITT History of Present Illness: SOHA DORSEY is a 73 year old female,Presented to the ED for increasing shortness of breath and subsequently wound right sided infiltrate as well as initiation of some septic shock she was subsequently intubated and sedated and is currently in the ICU. Past Medical History Cardiac Medical History: Reports: Atrial Fibrillation - chronic, Congestive Heart Failure, Hypertension Denies: Coronary Artery Disease, Myocardial Infarction, Hyperlipidema, Peripheral Vascular Disease, Pulmonary Embolism, Heart Murmur Pulmonary Medical History: Reports: Bronchitis, Chronic Obstructive Pulmonary Disease (COPD) Denies: Asthma, Pneumonia, Respiratory Failure, Sleep Apnea, Tuberculosis Neurological Medical History: Reports: Seizures Endocrine Medical History: Denies: Hyperthyroidism, Hypothyroidism Renal/ Medical History: Denies: End Stage Renal Disease Malignancy Medical History: Denies: Lung Cancer GI Medical History: Reports: Gastroesophageal Reflux Disease, Hepatitis Denies: Crohn's Disease, Hiatal Hernia Musculoskeltal Medical History: Reports: Arthritis Denies: Fibromyalgia Psychiatric Medical History: Reports: Depression Denies: Dementia, Post Traumatic Stress Disorder Comment Only: Bipolar Disorder - anxiety Hematology: Denies: Anemia, Sickle Cell Disease Past Surgical History Past Surgical History: Reports: Cholecystectomy Denies: Amputation, Appendectomy, Section, Colostomy, Coronary Artery Bypass Graft, Gastric Bypass Surgery, Herniorrhaphy, Hysterectomy, Mastectomy, Pacemaker, Tonsillectomy, Tubal Ligation Social History Smoking Status: Current Every Day Smoker Cigarettes Packs Per Day: 1 Frequency of Alcohol Use: Occasional Hx Recreational Drug Use: No Drugs: None Hx Prescription Drug Abuse: No Have you travelled outside of [place] in the past 12 months?: No - Advance Directive Resuscitation Status: Full Code Family History Parental Family History Reviewed: No Children Family History Reviewed: No Sibling(s) Family History Reviewed.: No Medication/Allergy Home Medications: Acetazolamide [Diamox 250 mg Tab] 250 mg PO DAILY 02/08/17 Apixaban [Eliquis 5 mg Tablet] 5 mg PO BID 02/08/17 Clonazepam [Klonopin 0.25 mg Tablet Rapid Dissolve] 0.25 mg SL QHS 02/08/17 Furosemide [Lasix] 20 mg PO DAILY 02/08/17 Gabapentin [Neurontin] 800 mg PO TID 02/08/17 Multivit-Min/Iron/Folic/Lutein [Centrum Silver Women Tablet] 1 tab PO DAILY Omeprazole 40 mg PO DAILY 02/08/17 Tiotropium [place] [Spiriva Respimat] 1 puff IH DAILY 02/08/17 Albuterol Sulfate [Proair HFA Inhalation Aerosol 8.5 gm MDI] 2 puff IH BIDP PRN 05/25/18 Fluticasone Propionate [Flonase Nasal [place]camore 50 Mcg/Sycamore 16 gm] 2 spray NASL DAILYP PRN 05/25/18 Fluticasone Propionate [Flovent HFA 220 mcg MDI] 2 puff IH BID 05/25/18 Potassium Chloride [Klor-Con M20] 20 meq PO DAILY 05/25/18 Roflumilast [Daliresp] 250 mcg PO DAILY 05/25/18 Valsartan [Diovan 160 mg Tablet] 160 mg PO DAILY 05/25/18 Allergies/Adverse Reactions: adhesive tape [Adhesive Tape] Allergy (Severe, Verified 05/25/18 10:16) peels skin off ceftriaxone sodium [From Rocephin] Allergy (Severe, Verified 05/25/18 10:16) redness/itch lorazepam [From Ativan] Adverse Reaction (Severe, Verified 05/26/18 13:33) Hallucinations Review of Systems ROS unobtainable: Due to endotracheal tube, Due to mental status Physical Exam Vital Signs: Temp Pulse Resp BP Pulse Ox 102.4 F H 63 28 H 105/43 L 100 06/14/18 08:00 06/14/18 08:52 06/14/18 08:52 06/14/18 08:00 06/14/18 08:52 Intake & Output 06/13/18 06/14/18 06/15/18 06:59 06:59 06:59 Intake Total 1550 1930 309 Output Total 1650 1475 Balance -100 455 309 Weight 75 kg 67.8 kg General appearance: PRESENT: no acute distress, disheveled, obese. ABSENT: cooperative Head exam: PRESENT: atraumatic, normocephalic Eye exam: PRESENT: conjunctiva pale. ABSENT: EOMI, nystagmus, periorbital swelling, scleral icterus Mouth exam: PRESENT: dry mucosa, neck supple, tongue midline, other - ET tube in place Neck exam: ABSENT: carotid bruit, JVD, lymphadenopathy, thyromegaly, tracheal deviation, tracheostomy Cardiovascular exam: PRESENT: RRR, +S1, +S2, tachycardia Pulses: PRESENT: normal radial pulses GI/Abdominal exam: PRESENT: diminished bowel sounds, soft Extremities exam: ABSENT: clubbing, joint swelling, pedal edema Musculoskeletal exam: ABSENT: ambulatory, deformity, dislocation Neurological exam: ABSENT: awake Skin exam: PRESENT: dry, warm Results Laboratory Results: 06/14/18 03:05 06/14/18 03:05 06/14/18 06/14/18 06/14/18 03:00 03:05 03:05 WBC 23.5 H D RBC 4.37 Hgb 10.3 L Hct 34.0 L MCV 78 L MCH 23.5 L MCHC 30.2 L RDW 21.7 H Plt Count 170 Seg Neutrophils % Not Reportable Lymphocytes % Not Reportable Monocytes % Not Reportable Eosinophils % Not Reportable Basophils % Not Reportable Absolute Neutrophils Not Reportable Absolute Lymphocytes Not Reportable Absolute Monocytes Not Reportable Absolute Eosinophils Not Reportable Absolute Basophils Not Reportable Carbonic Acid 1.32 HCO3/H2CO3 Ratio 15:1 ABG pH 7.28 L ABG pCO2 43.9 ABG pO2 139.7 H ABG HCO3 20.4 ABG O2 Saturation 98.5 H ABG Base Excess -6.1 FiO2 100% Sodium 141.6 Potassium 5.1 H D Chloride 107 Carbon Dioxide 21 L Anion Gap 14 BUN 7 Creatinine 0.70 Est GFR ( Amer) > 60 Est GFR (Non-Af Amer) > 60 Glucose 197 H Calcium 8.0 L Magnesium 1.7 Total Bilirubin 0.8 AST 40 H ALT 28 Alkaline Phosphatase 107 Total Protein 5.3 L Albumin 2.5 L Impressions: Chest Ultrasound 06/03/18 11:30 IMPRESSION: MODERATE BILATERAL PLEURAL EFFUSIONS. KUB X-Ray 06/11/18 00:00 IMPRESSION: NO RADIOGRAPHIC EVIDENCE FOR ACUTE ABDOMINAL DISEASE. Chest X-Ray 06/14/18 00:00 IMPRESSION: Tip of an endotracheal tube is 1.7 cm from the jenny; recommend 3 cm retraction of the endotracheal tube. Head CT 06/14/18 00:00 IMPRESSION: Bilateral low-density areas in the white matter that may be related to posterior reversible encephalopathy syndrome. Recommend correlation with patient's history and follow-up MRI with and without contrast could better evaluate as other underlying lesions are not excluded on this exam. Assessment & Plan - Diagnosis (1) Acute respiratory failure with hypoxemia Is this a current diagnosis for this admission?: Yes Plan: Wean from mechanical ventilation as tolerated (2) Atrial fibrillation with rapid ventricular response Is this a current diagnosis for this admission?: Yes Plan: Cardizem plus digoxin (3) CHF (congestive heart failure) Qualifiers: Heart failure type: unspecified Heart failure chronicity: unspecified Qualified Code(s): I50.9 - Heart failure, unspecified Is this a current diagnosis for this admission?: Yes (4) COPD (chronic obstructive pulmonary disease) Qualifiers: COPD type: unspecified COPD Qualified Code(s): J44.9 - Chronic obstructive pulmonary disease, unspecified Is this a current diagnosis for this admission?: Yes Plan: Generic Name Dose Route Start Last Admin Trade Name Freq PRN Reason Stop Dose Admin Albuterol 2.5 mg 05/29/18 09:11 06/18/18 07:34 Ventolin 0.083% Neb 2.5 Mg/3 Ml Ampul NEB 06/28/18 09:10 Not Given RTQ6HP PRN SHORTNESS OF BREATH Prednisone 5 mg 06/02/18 10:00 06/18/18 09:25 Deltasone 5 Mg Tablet NG 07/02/18 09:59 5 mg DAILY EDER Albuterol/Ipratropium 3 ml 05/29/18 14:00 06/18/18 08:29 Duoneb 3 Ml Ampul NEB 06/28/18 13:59 3 ml RTQ6 EDER (5) GERD (gastroesophageal reflux disease) Qualifiers: Esophagitis presence: esophagitis presence not specified Qualified Code(s) : K21.9 - Gastro-esophageal reflux disease without esophagitis Is this a current diagnosis for this admission?: Yes Plan: Continue PPI (6) Sepsis Qualifiers: Sepsis type: sepsis due to unspecified organism Qualified Code(s): A41.9 - Sepsis, unspecified organism Is this a current diagnosis for this admission?: Yes Plan: Vasopressor agents as needed - Time Total Critical Time (Minutes): 55
[2018-06-18 12:03] LABS: ARTERIAL BLOOD BASE EXCESS -2.7 mmol/L; ARTERIAL BLOOD H2CO3 0.95 mmol/L (1.05-1.35); ARTERIAL BLOOD HCO3 20.6 mmol/L (20-26); ARTERIAL BLOOD O2 SATURATION 96.2 % (94-98); ARTERIAL BLOOD PCO2 31.5 mmHg (35-45); ARTERIAL BLOOD PH 7.43 (7.35-7.45); ARTERIAL BLOOD TOTAL CO2 21.6 mmol/L (21-25)
[2018-06-18 12:05] LABS: ARTERIAL BLOOD FIO2 30%
[2018-06-18] MEDS: PHENYTOIN 100 MG/4 ML SUSP NG SCH ×2 (13:30→22:39)
[2018-06-18] MEDS: NORMAL SALINE 1000 ML 1,000 ML IV PRN (17:16)
[2018-06-19] MEDS: IPRATROPIUM/ALBUTEROL 0.5-2.5 MG/3 ML AMPUL NEB SCH ×4 (02:17→20:50)
[2018-06-19] MEDS: CLINDAMYCIN 600 MG/D5W RTU 600 MG/50 ML RTUPB IV SCH ×3 (03:40→17:47)
[2018-06-19] MEDS: LANSOPRAZOLE 30 MG TAB.RAP.DR NG SCH (05:22)
[2018-06-19] MEDS: PHENYTOIN 100 MG/4 ML SUSP NG SCH (05:22)
[2018-06-19] MEDS: GABAPENTIN 400 MG CAPSULE NG SCH ×3 (05:22→22:23)
[2018-06-19 05:27] LABS: ANION GAP 12 (5-19); BLOOD UREA NITROGEN 7 mg/dL (7-20); CALCIUM 7.9 mg/dL (8.4-10.2); CARBON DIOXIDE 25 mmol/L (22-30); CHLORIDE 110 mmol/L (98-107); GLUCOSE 95 mg/dL (75-110); POTASSIUM 3.5 mmol/L (3.6-5.0); SODIUM 146.5 mmol/L (137-145)
--- NOTE | 2018-06-19 08:11 | PDOC PROGRESS REPORT ---
Subjective Progress Note for:: 06/19/18 Subjective:: Post extubation remain on BiPAP support. Continue to demonstrate some degree of confusion. Oral feeding and medication administration remain on hold due to concern about aspiration. Minimal sleep overnight as per nursing staff report. No chest pain, nausea, or vomiting. Reason For Visit: ADMIT TO ICU FOR PNA AND SEPSIS Physical Exam Vital Signs: Temp Pulse Resp BP Pulse Ox 98.6 F 71 24 H 167/59 H 100 06/19/18 06:01 06/19/18 02:17 06/19/18 06:01 06/19/18 06:00 06/19/18 06:01 Intake & Output 06/18/18 06/19/18 06/20/18 06:59 06:59 06:59 Intake Total 3094 1067 Output Total 1480 5275 Balance 1614 -4208 Weight 76.9 kg 73.3 kg Physical Exam: Head exam: PRESENT: atraumatic, normocephalic Eye exam: PRESENT: conjunctiva pink, PERRLA Ear exam: PRESENT: normal external ear exam Mouth exam: PRESENT: Fairly moist. Respiratory exam: PRESENT: clear to auscultation cas, decreased breath sounds - at lung bases Cardiovascular exam: PRESENT: RRR. ABSENT: diastolic murmur, rubs, systolic murmur Vascular exam: PRESENT: normal capillary refill. ABSENT: pallor GI/Abdominal exam: PRESENT: normal bowel sounds, soft. ABSENT: distended, guarding, mass, organomegaly, rebound, tenderness Rectal exam: PRESENT: deferred Extremities exam: ABSENT: pedal edema Musculoskeletal exam: PRESENT: normal inspection Neurological exam: PRESENT: altered - sedated Psychiatric exam: PRESENT: other - limited due to current state of sedation Skin exam: PRESENT: dry, warm Results Laboratory Results: 06/18/18 07:00 06/19/18 04:12 06/18/18 06/19/18 11:50 04:12 Carbonic Acid 0.95 L HCO3/H2CO3 Ratio 21:1 ABG pH 7.43 ABG pCO2 31.5 L ABG pO2 79.0 L ABG HCO3 20.6 ABG O2 Saturation 96.2 ABG Base Excess -2.7 FiO2 30% Sodium 146.5 H Potassium 3.5 L Chloride 110 H Carbon Dioxide 25 Anion Gap 12 BUN 7 Creatinine 0.53 Est GFR ( Amer) > 60 Est GFR (Non-Af Amer) > 60 Glucose 95 Calcium 7.9 L Impressions: Chest Ultrasound 06/03/18 11:30 IMPRESSION: MODERATE BILATERAL PLEURAL EFFUSIONS. KUB X-Ray 06/11/18 00:00 IMPRESSION: NO RADIOGRAPHIC EVIDENCE FOR ACUTE ABDOMINAL DISEASE. Head CT 06/14/18 00:00 IMPRESSION: Bilateral low-density areas in the white matter that may be related to posterior reversible encephalopathy syndrome. Recommend correlation with patient's history and follow-up MRI with and without contrast could better evaluate as other underlying lesions are not excluded on this exam. Chest X-Ray 06/18/18 06:00 IMPRESSION: No change from yesterday Assessment & Plan - Diagnosis (1) SIRS with acute organ dysfunction due to infectious process Is this a current diagnosis for this admission?: Yes (2) Lobar pneumonia, unspecified organism Is this a current diagnosis for this admission?: Yes (3) Grecia infection, disseminated Is this a current diagnosis for this admission?: Yes (4) Anemia due to infection Is this a current diagnosis for this admission?: Yes (5) Decompensated COPD with exacerbation (chronic obstructive pulmonary disease) Is this a current diagnosis for this admission?: Yes (6) Chronic atrial fibrillation Is this a current diagnosis for this admission?: Yes (7) HTN (hypertension) Qualifiers: Hypertension type: essential hypertension Qualified Code(s): I10 - Essential (primary) hypertension Is this a current diagnosis for this admission?: Yes (8) HLD (hyperlipidemia) Qualifiers: Hyperlipidemia type: pure hypercholesterolemia Qualified Code(s): E78.00 - Pure hypercholesterolemia, unspecified Is this a current diagnosis for this admission?: Yes (9) GERD (gastroesophageal reflux disease) Qualifiers: Esophagitis presence: esophagitis presence not specified Qualified Code(s) : K21.9 - Gastro-esophageal reflux disease without esophagitis Is this a current diagnosis for this admission?: Yes (10) Anxiety Is this a current diagnosis for this admission?: Yes (11) Depression Qualifiers: Depression Type: major depressive disorder Major depression recurrence: recurrent Active/Remission status: currently active Psychotic features: without psychotic features Is this a current diagnosis for this admission?: Yes (12) Acute delirium Is this a current diagnosis for this admission?: Yes (13) Electrolyte imbalance Is this a current diagnosis for this admission?: Yes (14) Tonic-clonic seizure disorder Is this a current diagnosis for this admission?: Yes - Time Time Spent with patient: 25-34 minutes Medications reviewed and adjusted accordingly: Yes Anticipated discharge: SNF Within: Other - Inpatient Certification Based on my medical assessment, after consideration of the patient's comorbidities, presenting symptoms, or acuity I expect that the services needed warrant INPATIENT care.: Yes I certify that my determination is in accordance with my understanding of Medicare's requirements for reasonable and necessary INPATIENT services [42 CFR 412.3e].: Yes Medical Necessity: Need Close Monitoring Due to Risk of Patient Decompensation, Need For IV Fluids, Need For Continuous Telemetry Monitoring, Need for Nebulizer Therapy and Monitoring of Response, Need for IV Antibiotics, Risk of Complication if Not Cared For in Hospital Post Hospital Care: D/C or Transfer Summary - Plan Summary Plan Summary: Complete swallowing evaluation. IV Vasotec 2.5 mg [id number] prn for sbp > 150mmHg. Start on full liquid diet if she pass swallowing test. Dilantin 100mg [id number] until oral administration is safe. Obtain Dilantin level. Potassium replacement in progress.
[2018-06-19] MEDS: DOCUSATE SODIUM 100 MG CAPSULE PO SCH ×2 (09:33→17:30)
[2018-06-19] MEDS: ENALAPRILAT DIHYDRATE INJ/PF 2.5 MG/2 ML SDV IV PRN ×2 (09:34→15:33)
[2018-06-19] MEDS: NORMAL SALINE 1000 ML 1,000 ML IV PRN (10:56)
[2018-06-19] MEDS: PREDNISONE 5 MG TABLET NG SCH (10:57)
[2018-06-19] MEDS: MULTIVITAMIN ORAL LIQUID 60 ML NG SCH (10:57)
[2018-06-19] MEDS: VALSARTAN 160 MG TABLET NG SCH (10:57)
[2018-06-19] MEDS: HALOPERIDOL 0.5 MG TABLET NG SCH ×2 (10:58→22:23)
[2018-06-19] MEDS: DIGOXIN 0.25 MG TABLET NG SCH (10:58)
[2018-06-19] MEDS: APIXABAN 5 MG TABLET NG SCH ×2 (10:58→17:48)
--- NOTE | 2018-06-19 11:35 | PDOC PROGRESS REPORT ---
Subjective Progress Note for:: 06/15/18 Subjective:: Intubated and sedated Reason For Visit: ADMIT TO ICU FOR PNA AND SEPSIS Physical Exam Vital Signs: Temp Pulse Resp BP Pulse Ox 97.2 F 60 18 115/53 L 98 06/15/18 05:17 06/15/18 02:21 06/15/18 02:21 06/14/18 18:46 06/15/18 03:19 Intake & Output 06/14/18 06/15/18 06/16/18 06:59 06:59 06:59 Intake Total 2030 1682 Output Total 1475 595 Balance 555 1087 Weight 67.8 kg 71.2 kg General appearance: PRESENT: no acute distress, disheveled, morbidly obese Head exam: PRESENT: atraumatic, normocephalic Eye exam: PRESENT: conjunctiva pale. ABSENT: nystagmus, periorbital swelling, scleral icterus Mouth exam: PRESENT: neck supple, tongue midline Neck exam: ABSENT: carotid bruit, JVD, lymphadenopathy, thyromegaly, tracheal deviation, tracheostomy Respiratory exam: PRESENT: decreased breath sounds, prolonged expiratory phas, rales, rhonchi, unlabored. ABSENT: retraction, stridor Cardiovascular exam: PRESENT: irregular rhythm, +S1, +S2, tachycardia Pulses: PRESENT: normal radial pulses GI/Abdominal exam: PRESENT: normal bowel sounds, soft Gentrourinary exam: PRESENT: indwelling catheter Extremities exam: ABSENT: calf tenderness, clubbing, joint swelling Musculoskeletal exam: ABSENT: deformity, dislocation Neurological exam: PRESENT: awake Psychiatric exam: PRESENT: flat affect Skin exam: PRESENT: dry, warm Results Laboratory Results: 06/14/18 15:50 06/14/18 15:50 06/14/18 06/14/18 06/14/18 03:05 09:45 11:10 WBC RBC Hgb Hct MCV MCH MCHC RDW Plt Count Seg Neutrophils % Lymphocytes % Monocytes % Eosinophils % Basophils % Absolute Neutrophils Absolute Lymphocytes Absolute Monocytes Absolute Eosinophils Absolute Basophils Carbonic Acid 0.76 L 0.85 L HCO3/H2CO3 Ratio 26:1 24:1 ABG pH 7.52 H 7.49 H ABG pCO2 25.1 L 28.3 L ABG pO2 76.0 L 66.7 L ABG HCO3 19.8 L 20.8 ABG O2 Saturation 96.6 94.8 ABG Base Excess -2.4 -2.0 FiO2 40% 30% Sodium Potassium Chloride Carbon Dioxide Anion Gap BUN Creatinine Est GFR ( Amer) Est GFR (Non-Af Amer) Glucose Calcium Phosphorus Magnesium Triglycerides 164 H 06/14/18 06/14/18 06/14/18 13:30 15:50 15:50 WBC 9.4 RBC 3.41 L Hgb 8.4 L Hct 25.9 L MCV 76 L MCH 24.6 L MCHC 32.3 RDW 22.2 H Plt Count 103 L Seg Neutrophils % 81.2 H Lymphocytes % 11.3 L Monocytes % 6.2 Eosinophils % 0.4 Basophils % 0.9 Absolute Neutrophils 7.7 Absolute Lymphocytes 1.1 Absolute Monocytes 0.6 Absolute Eosinophils 0.0 Absolute Basophils 0.1 Carbonic Acid 1.04 L HCO3/H2CO3 Ratio 21:1 ABG pH 7.42 ABG pCO2 34.7 L ABG pO2 78.9 L ABG HCO3 22.2 ABG O2 Saturation 96.0 ABG Base Excess -1.9 FiO2 30% Sodium 140.6 Potassium 4.1 D Chloride 109 H Carbon Dioxide 22 Anion Gap 10 BUN 10 Creatinine 0.69 Est GFR ( Amer) > 60 Est GFR (Non-Af Amer) > 60 Glucose 109 Calcium 7.2 L Phosphorus Magnesium Triglycerides 06/15/18 06/15/18 05:25 05:25 WBC RBC Hgb Hct MCV MCH MCHC RDW Plt Count Seg Neutrophils % Lymphocytes % Monocytes % Eosinophils % Basophils % Absolute Neutrophils Absolute Lymphocytes Absolute Monocytes Absolute Eosinophils Absolute Basophils Carbonic Acid 1.01 L HCO3/H2CO3 Ratio 21:1 ABG pH 7.43 ABG pCO2 33.5 L ABG pO2 78.6 L ABG HCO3 21.5 ABG O2 Saturation 96.0 ABG Base Excess -2.5 FiO2 30% Sodium Potassium Chloride Carbon Dioxide Anion Gap BUN Creatinine Est GFR ( Amer) Est GFR (Non-Af Amer) Glucose Calcium Phosphorus 3.9 Magnesium 1.6 Triglycerides Impressions: Chest Ultrasound 06/03/18 11:30 IMPRESSION: MODERATE BILATERAL PLEURAL EFFUSIONS. KUB X-Ray 06/11/18 00:00 IMPRESSION: NO RADIOGRAPHIC EVIDENCE FOR ACUTE ABDOMINAL DISEASE. Head CT 06/14/18 00:00 IMPRESSION: Bilateral low-density areas in the white matter that may be related to posterior reversible encephalopathy syndrome. Recommend correlation with patient's history and follow-up MRI with and without contrast could better evaluate as other underlying lesions are not excluded on this exam. Assessment & Plan - Diagnosis (1) Acute respiratory failure with hypoxemia Is this a current diagnosis for this admission?: Yes Plan: Wean from mechanical ventilation as tolerated (2) Atrial fibrillation with rapid ventricular response Is this a current diagnosis for this admission?: Yes Plan: Cardizem plus digoxin (3) COPD (chronic obstructive pulmonary disease) Qualifiers: COPD type: unspecified COPD Qualified Code(s): J44.9 - Chronic obstructive pulmonary disease, unspecified Is this a current diagnosis for this admission?: Yes Plan: Generic Name Dose Route Start Last Admin Trade Name Freq PRN Reason Stop Dose Admin Albuterol 2.5 mg 05/29/18 09:11 06/18/18 07:34 Ventolin 0.083% Neb 2.5 Mg/3 Ml Ampul NEB 06/28/18 09:10 Not Given RTQ6HP PRN SHORTNESS OF BREATH Prednisone 5 mg 06/02/18 10:00 06/18/18 09:25 Deltasone 5 Mg Tablet NG 07/02/18 09:59 5 mg DAILY EDER Albuterol/Ipratropium 3 ml 05/29/18 14:00 06/18/18 08:29 Duoneb 3 Ml Ampul NEB 06/28/18 13:59 3 ml RTQ6 EDER (4) GERD (gastroesophageal reflux disease) Qualifiers: Esophagitis presence: esophagitis presence not specified Qualified Code(s) : K21.9 - Gastro-esophageal reflux disease without esophagitis Is this a current diagnosis for this admission?: Yes Plan: Continue PPI - Time Total Critical Time (Minutes): 40
--- NOTE | 2018-06-19 11:38 | PDOC PROGRESS REPORT ---
Subjective Progress Note for:: 06/16/18 Subjective:: Intubated and sedated Reason For Visit: ADMIT TO ICU FOR PNA AND SEPSIS Physical Exam Vital Signs: Temp Pulse Resp BP Pulse Ox 97.2 F 72 24 H 115/53 L 94 06/16/18 04:57 06/16/18 08:19 06/16/18 08:19 06/14/18 18:46 06/16/18 08:19 Intake & Output 06/15/18 06/16/18 06/17/18 06:59 06:59 06:59 Intake Total 1982 1409 Output Total 595 780 210 Balance 1387 629 -210 Weight 71.2 kg 71.6 kg General appearance: PRESENT: no acute distress, disheveled, morbidly obese Head exam: PRESENT: atraumatic, normocephalic Eye exam: PRESENT: conjunctiva pale, EOMI. ABSENT: nystagmus, periorbital swelling, scleral icterus Mouth exam: PRESENT: dry mucosa, neck supple, tongue midline, other - ET tube Neck exam: ABSENT: carotid bruit, JVD, lymphadenopathy, thyromegaly, tracheal deviation, tracheostomy Respiratory exam: PRESENT: decreased breath sounds, prolonged expiratory phas, rales, rhonchi, unlabored. ABSENT: retraction, stridor Cardiovascular exam: PRESENT: irregular rhythm Pulses: PRESENT: normal radial pulses GI/Abdominal exam: PRESENT: hypoactive bowel sounds, soft Extremities exam: ABSENT: calf tenderness, clubbing, joint swelling Musculoskeletal exam: ABSENT: deformity, dislocation Neurological exam: ABSENT: awake Skin exam: PRESENT: dry, warm Results Laboratory Results: 06/16/18 06:15 06/16/18 06:15 06/16/18 06/16/18 06/16/18 06:15 06:15 06:15 WBC 6.5 RBC 3.19 L Hgb 7.8 L Hct 24.5 L MCV 77 L MCH 24.6 L MCHC 32.0 RDW 22.5 H Plt Count 94 L Seg Neutrophils % 60.3 Lymphocytes % 21.0 Monocytes % 8.6 Eosinophils % 9.2 H Basophils % 0.9 Absolute Neutrophils 3.9 Absolute Lymphocytes 1.4 Absolute Monocytes 0.6 Absolute Eosinophils 0.6 Absolute Basophils 0.1 Carbonic Acid 0.98 L HCO3/H2CO3 Ratio 21:1 ABG pH 7.42 ABG pCO2 32.6 L ABG pO2 71.1 L ABG HCO3 20.6 ABG O2 Saturation 94.8 ABG Base Excess -3.3 FiO2 24% Sodium 138.8 Potassium 3.1 L Chloride 109 H Carbon Dioxide 22 Anion Gap 8 BUN 7 Creatinine 0.61 Est GFR ( Amer) > 60 Est GFR (Non-Af Amer) > 60 Glucose 94 Calcium 7.4 L Magnesium 1.6 Impressions: Chest Ultrasound 06/03/18 11:30 IMPRESSION: MODERATE BILATERAL PLEURAL EFFUSIONS. KUB X-Ray 06/11/18 00:00 IMPRESSION: NO RADIOGRAPHIC EVIDENCE FOR ACUTE ABDOMINAL DISEASE. Head CT 06/14/18 00:00 IMPRESSION: Bilateral low-density areas in the white matter that may be related to posterior reversible encephalopathy syndrome. Recommend correlation with patient's history and follow-up MRI with and without contrast could better evaluate as other underlying lesions are not excluded on this exam. Chest X-Ray 06/15/18 06:00 IMPRESSION: No significant change.Tip of an endotracheal tube is 1.6 cm from the jenny, partially obscured; consider 3 cm retraction of the endotracheal tube. Assessment & Plan - Diagnosis (1) Acute respiratory failure with hypoxemia Is this a current diagnosis for this admission?: Yes Plan: Wean from mechanical ventilation as tolerated (2) Atrial fibrillation with rapid ventricular response Is this a current diagnosis for this admission?: Yes Plan: Cardizem plus digoxin (3) COPD (chronic obstructive pulmonary disease) Qualifiers: COPD type: unspecified COPD Qualified Code(s): J44.9 - Chronic obstructive pulmonary disease, unspecified Is this a current diagnosis for this admission?: Yes Plan: Generic Name Dose Route Start Last Admin Trade Name Freq PRN Reason Stop Dose Admin Albuterol 2.5 mg 05/29/18 09:11 06/18/18 07:34 Ventolin 0.083% Neb 2.5 Mg/3 Ml Ampul NEB 06/28/18 09:10 Not Given RTQ6HP PRN SHORTNESS OF BREATH Prednisone 5 mg 06/02/18 10:00 06/18/18 09:25 Deltasone 5 Mg Tablet NG 07/02/18 09:59 5 mg DAILY EDER Albuterol/Ipratropium 3 ml 05/29/18 14:00 06/18/18 08:29 Duoneb 3 Ml Ampul NEB 06/28/18 13:59 3 ml RTQ6 EDER (4) GERD (gastroesophageal reflux disease) Qualifiers: Esophagitis presence: esophagitis presence not specified Qualified Code(s) : K21.9 - Gastro-esophageal reflux disease without esophagitis Is this a current diagnosis for this admission?: Yes Plan: Continue PPI - Time Total Critical Time (Minutes): 45
--- NOTE | 2018-06-19 11:39 | PDOC PROGRESS REPORT ---
Subjective Progress Note for:: 06/17/18 Subjective:: Intubated and sedated Reason For Visit: ADMIT TO ICU FOR PNA AND SEPSIS Physical Exam Vital Signs: Temp Pulse Resp BP Pulse Ox 99.5 F 81 31 H 125/70 94 06/17/18 11:28 06/17/18 11:28 06/17/18 11:28 06/17/18 11:28 06/17/18 11:36 Intake & Output 06/16/18 06/17/18 06/18/18 06:59 06:59 06:59 Intake Total 1709 2687 160 Output Total 780 1905 210 Balance 929 782 -50 Weight 71.6 kg 74.3 kg General appearance: PRESENT: no acute distress, disheveled, morbidly obese Head exam: PRESENT: atraumatic, normocephalic Eye exam: PRESENT: conjunctiva pale. ABSENT: nystagmus, periorbital swelling, scleral icterus Mouth exam: PRESENT: dry mucosa, neck supple, tongue midline, other - ET tube Neck exam: ABSENT: carotid bruit, JVD, lymphadenopathy, thyromegaly, tracheal deviation, tracheostomy Respiratory exam: PRESENT: decreased breath sounds, prolonged expiratory phas, rales, rhonchi, unlabored Cardiovascular exam: PRESENT: irregular rhythm Pulses: PRESENT: normal radial pulses GI/Abdominal exam: PRESENT: hypoactive bowel sounds, soft Gentrourinary exam: PRESENT: indwelling catheter Extremities exam: ABSENT: calf tenderness, clubbing, joint swelling, pedal edema Musculoskeletal exam: ABSENT: ambulatory, deformity, dislocation Neurological exam: PRESENT: awake Psychiatric exam: PRESENT: flat affect Skin exam: PRESENT: dry, warm Results Laboratory Results: 06/17/18 06:20 06/17/18 06:20 06/16/18 06/16/18 06/17/18 16:10 16:10 06:20 WBC 6.5 RBC 3.45 L Hgb 8.3 L Hct 26.4 L MCV 77 L MCH 24.2 L MCHC 31.6 L RDW 23.2 H Plt Count 126 L Seg Neutrophils % 75.0 Lymphocytes % 12.6 L Monocytes % 6.9 Eosinophils % 4.6 Basophils % 0.9 Absolute Neutrophils 4.9 Absolute Lymphocytes 0.8 Absolute Monocytes 0.5 Absolute Eosinophils 0.3 Absolute Basophils 0.1 Sodium 139.7 Potassium 4.7 D 3.9 Chloride 110 H Carbon Dioxide 22 Anion Gap 8 BUN 7 Creatinine 0.54 Est GFR ( Amer) > 60 Est GFR (Non-Af Amer) > 60 Glucose 117 H Calcium 7.6 L Magnesium 1.7 Triglycerides 193 H Blood Type Antibody Screen 06/17/18 06/17/18 06:20 07:53 WBC 5.7 RBC 3.09 L Hgb 7.6 L Hct 23.7 L MCV 77 L MCH 24.7 L MCHC 32.2 RDW 23.2 H Plt Count 123 L Seg Neutrophils % 54.9 Lymphocytes % 26.3 Monocytes % 10.5 Eosinophils % 7.4 H Basophils % 0.9 Absolute Neutrophils 3.1 Absolute Lymphocytes 1.5 Absolute Monocytes 0.6 Absolute Eosinophils 0.4 Absolute Basophils 0.1 Sodium Potassium Chloride Carbon Dioxide Anion Gap BUN Creatinine Est GFR ( Amer) Est GFR (Non-Af Amer) Glucose Calcium Magnesium Triglycerides Blood Type A POSITIVE Antibody Screen NEGATIVE Impressions: Chest Ultrasound 06/03/18 11:30 IMPRESSION: MODERATE BILATERAL PLEURAL EFFUSIONS. KUB X-Ray 06/11/18 00:00 IMPRESSION: NO RADIOGRAPHIC EVIDENCE FOR ACUTE ABDOMINAL DISEASE. Head CT 06/14/18 00:00 IMPRESSION: Bilateral low-density areas in the white matter that may be related to posterior reversible encephalopathy syndrome. Recommend correlation with patient's history and follow-up MRI with and without contrast could better evaluate as other underlying lesions are not excluded on this exam. Chest X-Ray 06/17/18 06:00 IMPRESSION: No significant change. Assessment & Plan - Diagnosis (1) Acute respiratory failure with hypoxemia Is this a current diagnosis for this admission?: Yes Plan: Wean from mechanical ventilation as tolerated (2) Atrial fibrillation with rapid ventricular response Is this a current diagnosis for this admission?: Yes Plan: Cardizem plus digoxin (3) COPD (chronic obstructive pulmonary disease) Qualifiers: COPD type: unspecified COPD Qualified Code(s): J44.9 - Chronic obstructive pulmonary disease, unspecified Is this a current diagnosis for this admission?: Yes Plan: Generic Name Dose Route Start Last Admin Trade Name Freq PRN Reason Stop Dose Admin Albuterol 2.5 mg 05/29/18 09:11 06/18/18 07:34 Ventolin 0.083% Neb 2.5 Mg/3 Ml Ampul NEB 06/28/18 09:10 Not Given RTQ6HP PRN SHORTNESS OF BREATH Prednisone 5 mg 06/02/18 10:00 06/18/18 09:25 Deltasone 5 Mg Tablet NG 07/02/18 09:59 5 mg DAILY EDER Albuterol/Ipratropium 3 ml 05/29/18 14:00 06/18/18 08:29 Duoneb 3 Ml Ampul NEB 06/28/18 13:59 3 ml RTQ6 EDER (4) GERD (gastroesophageal reflux disease) Qualifiers: Esophagitis presence: esophagitis presence not specified Qualified Code(s) : K21.9 - Gastro-esophageal reflux disease without esophagitis Is this a current diagnosis for this admission?: Yes Plan: Continue PPI - Time Total Critical Time (Minutes): 40
--- NOTE | 2018-06-19 11:43 | PDOC PROGRESS REPORT ---
Subjective Progress Note for:: 06/18/18 Subjective:: Intubated Reason For Visit: ADMIT TO ICU FOR PNA AND SEPSIS Physical Exam Vital Signs: Temp Pulse Resp BP Pulse Ox 97.2 F 54 L 20 122/50 L 96 06/18/18 07:50 06/18/18 07:50 06/18/18 07:50 06/18/18 07:50 06/18/18 07:50 Intake & Output 06/17/18 06/18/18 06/19/18 06:59 06:59 06:59 Intake Total 2687 3094 Output Total 1905 1480 300 Balance 782 1614 -300 Weight 74.3 kg 76.9 kg General appearance: PRESENT: no acute distress, disheveled, morbidly obese Head exam: PRESENT: atraumatic, normocephalic Eye exam: PRESENT: conjunctiva pale, EOMI. ABSENT: nystagmus, periorbital swelling, scleral icterus Mouth exam: PRESENT: dry mucosa, neck supple, tongue midline, other - ET tube Neck exam: ABSENT: carotid bruit, JVD, lymphadenopathy, thyromegaly, tracheal deviation, tracheostomy Respiratory exam: PRESENT: decreased breath sounds, prolonged expiratory phas, rales, rhonchi, unlabored Cardiovascular exam: PRESENT: irregular rhythm, +S1 Pulses: PRESENT: normal radial pulses GI/Abdominal exam: PRESENT: hypoactive bowel sounds, soft Gentrourinary exam: PRESENT: indwelling catheter Extremities exam: PRESENT: joint swelling. ABSENT: calf tenderness, clubbing Musculoskeletal exam: ABSENT: deformity, dislocation Neurological exam: PRESENT: awake Psychiatric exam: PRESENT: flat affect Skin exam: PRESENT: dry, warm Results Laboratory Results: 06/18/18 07:00 06/18/18 07:00 06/17/18 06/17/18 06/17/18 07:53 17:10 18:30 WBC RBC Hgb Hct MCV MCH MCHC RDW Plt Count Seg Neutrophils % Lymphocytes % Monocytes % Eosinophils % Basophils % Absolute Neutrophils Absolute Lymphocytes Absolute Monocytes Absolute Eosinophils Absolute Basophils Carbonic Acid 0.85 L HCO3/H2CO3 Ratio 24:1 ABG pH 7.48 H ABG pCO2 28.3 L ABG pO2 66.6 L ABG HCO3 20.8 ABG O2 Saturation 94.8 ABG Base Excess -1.7 FiO2 25% Sodium Potassium Chloride Carbon Dioxide Anion Gap BUN Creatinine Est GFR ( Amer) Est GFR (Non-Af Amer) Glucose Calcium Magnesium Urine Color YELLOW Urine Appearance CLEAR Urine pH 6.0 Ur Specific [place] 1.009 Urine Protein NEGATIVE Urine Glucose (UA) NEGATIVE Urine Ketones NEGATIVE Urine Blood NEGATIVE Urine Nitrite NEGATIVE Ur Leukocyte Esterase NEGATIVE Urine WBC (Auto) 2 Urine RBC (Auto) 0 Blood Type A POSITIVE Antibody Screen NEGATIVE 06/17/18 06/18/18 06/18/18 18:30 07:00 07:00 WBC 7.1 RBC 4.04 Hgb 10.2 L D Hct 31.2 L MCV 77 L MCH 25.2 L MCHC 32.6 RDW 22.1 H Plt Count 157 Seg Neutrophils % Lymphocytes % Monocytes % Eosinophils % Basophils % Absolute Neutrophils Absolute Lymphocytes Absolute Monocytes Absolute Eosinophils Absolute Basophils Carbonic Acid 0.98 L HCO3/H2CO3 Ratio 21:1 ABG pH 7.43 ABG pCO2 32.7 L ABG pO2 69.0 L ABG HCO3 21.4 ABG O2 Saturation 94.5 ABG Base Excess -2.2 FiO2 25% Sodium 141.6 Potassium 4.1 Chloride 112 H Carbon Dioxide 21 L Anion Gap 9 BUN 8 Creatinine 0.53 Est GFR ( Amer) > 60 Est GFR (Non-Af Amer) > 60 Glucose 100 Calcium 7.7 L Magnesium 1.8 Urine Color Urine Appearance Urine pH Ur Specific [place] Urine Protein Urine Glucose (UA) Urine Ketones Urine Blood Urine Nitrite Ur Leukocyte Esterase Urine WBC (Auto) Urine RBC (Auto) Blood Type Antibody Screen 06/18/18 07:00 WBC 5.4 RBC 4.28 Hgb 10.7 L Hct 33.1 L MCV 77 L MCH 25.1 L MCHC 32.5 RDW 22.5 H Plt Count 158 Seg Neutrophils % 42.1 Lymphocytes % 33.9 Monocytes % 10.9 Eosinophils % 11.8 H Basophils % 1.3 Absolute Neutrophils 2.3 Absolute Lymphocytes 1.8 Absolute Monocytes 0.6 Absolute Eosinophils 0.6 Absolute Basophils 0.1 Carbonic Acid HCO3/H2CO3 Ratio ABG pH ABG pCO2 ABG pO2 ABG HCO3 ABG O2 Saturation ABG Base Excess FiO2 Sodium Potassium Chloride Carbon Dioxide Anion Gap BUN Creatinine Est GFR ( Amer) Est GFR (Non-Af Amer) Glucose Calcium Magnesium Urine Color Urine Appearance Urine pH Ur Specific [place] Urine Protein Urine Glucose (UA) Urine Ketones Urine Blood Urine Nitrite Ur Leukocyte Esterase Urine WBC (Auto) Urine RBC (Auto) Blood Type Antibody Screen Impressions: Chest Ultrasound 06/03/18 11:30 IMPRESSION: MODERATE BILATERAL PLEURAL EFFUSIONS. KUB X-Ray 06/11/18 00:00 IMPRESSION: NO RADIOGRAPHIC EVIDENCE FOR ACUTE ABDOMINAL DISEASE. Head CT 06/14/18 00:00 IMPRESSION: Bilateral low-density areas in the white matter that may be related to posterior reversible encephalopathy syndrome. Recommend correlation with patient's history and follow-up MRI with and without contrast could better evaluate as other underlying lesions are not excluded on this exam. Chest X-Ray 06/18/18 06:00 IMPRESSION: No change from yesterday Assessment & Plan - Diagnosis (1) Acute respiratory failure with hypoxemia Is this a current diagnosis for this admission?: Yes Plan: Airway pressures, minute ventilation, FiO2 all suggest successful extubation soon with slightly elevated respiratory rate but strongly believe that this is due to anxiety will proceed with extubation and initiating BiPAP (2) Atrial fibrillation with rapid ventricular response Is this a current diagnosis for this admission?: Yes Plan: Cardizem plus digoxin (3) COPD (chronic obstructive pulmonary disease) Qualifiers: COPD type: unspecified COPD Qualified Code(s): J44.9 - Chronic obstructive pulmonary disease, unspecified Is this a current diagnosis for this admission?: Yes Plan: Generic Name Dose Route Start Last Admin Trade Name Freq PRN Reason Stop Dose Admin Albuterol 2.5 mg 05/29/18 09:11 06/18/18 07:34 Ventolin 0.083% Neb 2.5 Mg/3 Ml Ampul NEB 06/28/18 09:10 Not Given RTQ6HP PRN SHORTNESS OF BREATH Prednisone 5 mg 06/02/18 10:00 06/18/18 09:25 Deltasone 5 Mg Tablet NG 07/02/18 09:59 5 mg DAILY EDER Albuterol/Ipratropium 3 ml 05/29/18 14:00 06/18/18 08:29 Duoneb 3 Ml Ampul NEB 06/28/18 13:59 3 ml RTQ6 EDER (4) GERD (gastroesophageal reflux disease) Qualifiers: Esophagitis presence: esophagitis presence not specified Qualified Code(s) : K21.9 - Gastro-esophageal reflux disease without esophagitis Is this a current diagnosis for this admission?: Yes Plan: Continue PPI - Time Total Critical Time (Minutes): 55
--- NOTE | 2018-06-19 11:46 | PDOC PROGRESS REPORT ---
Subjective Progress Note for:: 06/19/18 Subjective:: 24 hours status post extubation stable remains on BiPAP Reason For Visit: ADMIT TO ICU FOR PNA AND SEPSIS Physical Exam Vital Signs: Temp Pulse Resp BP Pulse Ox 98.6 F 71 24 H 167/59 H 100 06/19/18 06:01 06/19/18 02:17 06/19/18 06:01 06/19/18 06:00 06/19/18 06:01 Intake & Output 06/18/18 06/19/18 06/20/18 06:59 06:59 06:59 Intake Total 3094 1067 Output Total 1480 5275 Balance 1614 -4208 Weight 76.9 kg 73.3 kg General appearance: PRESENT: no acute distress, cooperative, disheveled, morbidly obese Head exam: PRESENT: atraumatic, normocephalic Eye exam: PRESENT: conjunctiva pale, EOMI. ABSENT: nystagmus, periorbital swelling, scleral icterus Mouth exam: PRESENT: dry mucosa, neck supple, tongue midline Neck exam: ABSENT: carotid bruit, JVD, lymphadenopathy, thyromegaly, tracheal deviation, tracheostomy Respiratory exam: PRESENT: decreased breath sounds, prolonged expiratory phas, rales, rhonchi, unlabored. ABSENT: retraction, stridor Cardiovascular exam: PRESENT: RRR, +S1, +S2 Pulses: PRESENT: normal radial pulses GI/Abdominal exam: PRESENT: hypoactive bowel sounds, soft Gentrourinary exam: PRESENT: indwelling catheter Extremities exam: ABSENT: calf tenderness, clubbing, joint swelling Musculoskeletal exam: ABSENT: deformity, dislocation Neurological exam: PRESENT: altered, awake Psychiatric exam: PRESENT: flat affect Skin exam: PRESENT: dry, warm Results Laboratory Results: 06/18/18 07:00 06/19/18 04:12 06/18/18 06/19/18 11:50 04:12 Carbonic Acid 0.95 L HCO3/H2CO3 Ratio 21:1 ABG pH 7.43 ABG pCO2 31.5 L ABG pO2 79.0 L ABG HCO3 20.6 ABG O2 Saturation 96.2 ABG Base Excess -2.7 FiO2 30% Sodium 146.5 H Potassium 3.5 L Chloride 110 H Carbon Dioxide 25 Anion Gap 12 BUN 7 Creatinine 0.53 Est GFR ( Amer) > 60 Est GFR (Non-Af Amer) > 60 Glucose 95 Calcium 7.9 L Impressions: Chest Ultrasound 06/03/18 11:30 IMPRESSION: MODERATE BILATERAL PLEURAL EFFUSIONS. KUB X-Ray 06/11/18 00:00 IMPRESSION: NO RADIOGRAPHIC EVIDENCE FOR ACUTE ABDOMINAL DISEASE. Head CT 06/14/18 00:00 IMPRESSION: Bilateral low-density areas in the white matter that may be related to posterior reversible encephalopathy syndrome. Recommend correlation with patient's history and follow-up MRI with and without contrast could better evaluate as other underlying lesions are not excluded on this exam. Chest X-Ray 06/18/18 06:00 IMPRESSION: No change from yesterday Assessment & Plan - Diagnosis (1) Acute respiratory failure with hypoxemia Is this a current diagnosis for this admission?: Yes Plan: On BiPAP stable 25 hours status post extubation (2) Atrial fibrillation with rapid ventricular response Is this a current diagnosis for this admission?: Yes Plan: Cardizem plus digoxin (3) CHF (congestive heart failure) Qualifiers: Heart failure type: unspecified Heart failure chronicity: unspecified Qualified Code(s): I50.9 - Heart failure, unspecified Is this a current diagnosis for this admission?: Yes (4) COPD (chronic obstructive pulmonary disease) Qualifiers: COPD type: unspecified COPD Qualified Code(s): J44.9 - Chronic obstructive pulmonary disease, unspecified Is this a current diagnosis for this admission?: Yes Plan: Generic Name Dose Route Start Last Admin Trade Name Freq PRN Reason Stop Dose Admin Albuterol 2.5 mg 05/29/18 09:11 06/18/18 07:34 Ventolin 0.083% Neb 2.5 Mg/3 Ml Ampul NEB 06/28/18 09:10 Not Given RTQ6HP PRN SHORTNESS OF BREATH Prednisone 5 mg 06/02/18 10:00 06/18/18 09:25 Deltasone 5 Mg Tablet NG 07/02/18 09:59 5 mg DAILY EDER Albuterol/Ipratropium 3 ml 05/29/18 14:00 06/18/18 08:29 Duoneb 3 Ml Ampul NEB 06/28/18 13:59 3 ml RTQ6 EDER (5) GERD (gastroesophageal reflux disease) Qualifiers: Esophagitis presence: esophagitis presence not specified Qualified Code(s) : K21.9 - Gastro-esophageal reflux disease without esophagitis Is this a current diagnosis for this admission?: Yes Plan: Continue PPI (6) Sepsis Qualifiers: Sepsis type: sepsis due to unspecified organism Qualified Code(s): A41.9 - Sepsis, unspecified organism Is this a current diagnosis for this admission?: Yes Plan: Resolved - Time Total Critical Time (Minutes): 40
[2018-06-19] MEDS ORDERED: PHENYTOIN SODIUM INJ/PF 100 MG/2 ML SDV IV SCH (14:00)
[2018-06-19] MEDS: PHENYTOIN SODIUM INJ/PF 100 MG/2 ML SDV IV SCH ×2 (15:51→22:24)
[2018-06-20] MEDS: CLINDAMYCIN 600 MG/D5W RTU 600 MG/50 ML RTUPB IV SCH ×3 (01:40→18:30)
[2018-06-20] MEDS: IPRATROPIUM/ALBUTEROL 0.5-2.5 MG/3 ML AMPUL NEB SCH ×4 (01:53→20:05)
[2018-06-20] MEDS: PHENYTOIN SODIUM INJ/PF 100 MG/2 ML SDV IV SCH ×3 (05:18→22:41)
[2018-06-20] MEDS: LANSOPRAZOLE 30 MG TAB.RAP.DR NG SCH (05:18)
[2018-06-20] MEDS: GABAPENTIN 400 MG CAPSULE NG SCH ×3 (05:18→22:41)
[2018-06-20 05:24] LABS: ARTERIAL BLOOD BASE EXCESS 1.3 mmol/L; ARTERIAL BLOOD H2CO3 1.33 mmol/L (1.05-1.35); ARTERIAL BLOOD HCO3 26.5 mmol/L (20-26); ARTERIAL BLOOD O2 SATURATION 97.2 % (94-98); ARTERIAL BLOOD PCO2 44.3 mmHg (35-45); ARTERIAL BLOOD PH 7.39 (7.35-7.45); ARTERIAL BLOOD PO2 94.8 mmHg (80-100); ARTERIAL BLOOD TOTAL CO2 27.8 mmol/L (21-25)
[2018-06-20 05:34] LABS: ARTERIAL BLOOD FIO2 30%
[2018-06-20 05:44] LABS: ABSOLUTE BASOPHILS # (AUTO) 0.1 10^3/uL (0.0-0.2); ABSOLUTE EOSINOPHILS # (AUTO) 0.4 10^3/uL (0.0-0.6); ABSOLUTE LYMPHOCYTES (AUTO) 1.7 10^3/uL (0.5-4.7); ABSOLUTE MONOCYTES (AUTO) 0.7 10^3/uL (0.1-1.4); ABSOLUTE NEUT (AUTO) 3.4 10^3/uL (1.7-8.2); BASOPHILS % (AUTO) 1.2 % (0-2); EOSINOPHILS % (AUTO) 6.1 % (0-6); HEMATOCRIT 32.4 % (36.0-47.0); HEMOGLOBIN 10.6 g/dL (12.0-15.5); LYMPHOCYTES % (AUTO) 26.8 % (13-45); MEAN CORPUSCULAR HEMOGLOBIN 25.4 pg (27.0-33.4); MEAN CORPUSCULAR HGB CONC 32.7 g/dL (32.0-36.0); MEAN CORPUSCULAR VOLUME 78 fl (80-97); MONOCYTES % (AUTO) 11.9 % (3-13); PLATELET COUNT 267 10^3/uL (150-450); RED BLOOD COUNT 4.17 10^6/uL (3.72-5.28); RED CELL DISTRIBUTION WIDTH 22.4 % (11.5-14.0); TOTAL CELLS COUNTED % (AUTO) 100 %; WHITE BLOOD COUNT 6.2 10^3/uL (4.0-10.5)
[2018-06-20 06:01] LABS: ANION GAP 8 (5-19); BLOOD UREA NITROGEN 5 mg/dL (7-20); CALCIUM 7.6 mg/dL (8.4-10.2); CARBON DIOXIDE 26 mmol/L (22-30); CHLORIDE 109 mmol/L (98-107); GLUCOSE 97 mg/dL (75-110); POTASSIUM 3.1 mmol/L (3.6-5.0); SODIUM 143.3 mmol/L (137-145)
--- NOTE | 2018-06-20 07:26 | RADIOLOGY REPORT (SQ) ---
EXAM DESCRIPTION: XR CHEST 1 VIEW COMPLETED DATE/TME: 06/20/2018 06:00 CLINICAL HISTORY: 73 years Female, pna COMPARISON: One day prior. NUMBER OF VIEWS/TECHNIQUE: 1/AP FINDINGS: Moderate hazy opacity-layered effusion of bilateral lower hemithoraces, moderate patchy opacity of the right upper lobe, moderate interstitial markings, normal cardiac silhouette, right jugular central line tip at the mid right atrium; consider retracting the right jugular central line by 10 cm. No pneumothorax. Skeletal structures are stable. IMPRESSION: No significant change.
[2018-06-20] MEDS: NORMAL SALINE 1000 ML 1,000 ML IV PRN (07:52)
[2018-06-20] MEDS ORDERED: MAGNESIUM SULFATE/D5W 1 GM/100 ML RTUPB IV ONE (08:27)
[2018-06-20] MEDS: MULTIVITAMIN ORAL LIQUID 60 ML NG SCH (09:13)
[2018-06-20] MEDS: VALSARTAN 160 MG TABLET NG SCH (09:13)
[2018-06-20] MEDS: PREDNISONE 5 MG TABLET NG SCH (09:13)
[2018-06-20] MEDS: APIXABAN 5 MG TABLET NG SCH (09:14)
[2018-06-20] MEDS: HALOPERIDOL 0.5 MG TABLET NG SCH ×2 (09:14→22:41)
[2018-06-20] MEDS: DIGOXIN 0.25 MG TABLET NG SCH (09:15)
[2018-06-20] MEDS: DOCUSATE SODIUM 100 MG CAPSULE PO SCH ×2 (09:16→18:30)
[2018-06-20] MEDS: POTASSI CL 20 MEQ/50 ML RIDER 20 MEQ/50 ML RTUPB IV SCH ×3 (10:06→14:35)
--- NOTE | 2018-06-20 11:09 | PDOC PROGRESS REPORT ---
Subjective Progress Note for:: 06/20/18 Subjective:: Awake confused Reason For Visit: ADMIT TO ICU FOR PNA AND SEPSIS Physical Exam Vital Signs: Temp Pulse Resp BP Pulse Ox 99.0 F 60 21 H 122/49 L 100 06/20/18 10:04 06/20/18 10:00 06/20/18 10:04 06/20/18 10:04 06/20/18 10:04 Intake & Output 06/19/18 06/20/18 06/21/18 06:59 06:59 06:59 Intake Total 1117 2033 200 Output Total 5275 1815 375 Balance -4158 218 -175 Weight 73.3 kg 72.6 kg General appearance: PRESENT: no acute distress, cooperative, disheveled, obese Head exam: PRESENT: atraumatic, normocephalic Eye exam: PRESENT: conjunctiva pale, EOMI. ABSENT: nystagmus, periorbital swelling, scleral icterus Mouth exam: PRESENT: moist, neck supple, tongue midline Neck exam: ABSENT: carotid bruit, JVD, lymphadenopathy, thyromegaly, tracheal deviation, tracheostomy Respiratory exam: PRESENT: decreased breath sounds, prolonged expiratory phas, rhonchi, unlabored. ABSENT: stridor Cardiovascular exam: PRESENT: RRR, +S1, +S2 Pulses: PRESENT: normal radial pulses GI/Abdominal exam: PRESENT: normal bowel sounds, soft Gentrourinary exam: PRESENT: indwelling catheter Extremities exam: PRESENT: pedal edema. ABSENT: calf tenderness, clubbing, joint swelling Musculoskeletal exam: ABSENT: ambulatory, deformity, dislocation Neurological exam: PRESENT: awake Psychiatric exam: PRESENT: flat affect Skin exam: PRESENT: dry, warm Results Laboratory Results: 06/20/18 05:05 06/20/18 05:05 06/20/18 06/20/18 06/20/18 05:05 05:05 05:05 WBC 6.2 RBC 4.17 Hgb 10.6 L Hct 32.4 L MCV 78 L MCH 25.4 L MCHC 32.7 RDW 22.4 H Plt Count 267 Seg Neutrophils % 54.0 Lymphocytes % 26.8 Monocytes % 11.9 Eosinophils % 6.1 H Basophils % 1.2 Absolute Neutrophils 3.4 Absolute Lymphocytes 1.7 Absolute Monocytes 0.7 Absolute Eosinophils 0.4 Absolute Basophils 0.1 Carbonic Acid 1.33 HCO3/H2CO3 Ratio 19:1 ABG pH 7.39 ABG pCO2 44.3 ABG pO2 94.8 ABG HCO3 26.5 H ABG O2 Saturation 97.2 ABG Base Excess 1.3 FiO2 30% Sodium 143.3 Potassium 3.1 L Chloride 109 H Carbon Dioxide 26 Anion Gap 8 BUN 5 L Creatinine 0.54 Est GFR ( Amer) > 60 Est GFR (Non-Af Amer) > 60 Glucose 97 Calcium 7.6 L Magnesium 1.6 Impressions: Chest Ultrasound 06/03/18 11:30 IMPRESSION: MODERATE BILATERAL PLEURAL EFFUSIONS. KUB X-Ray 06/11/18 00:00 IMPRESSION: NO RADIOGRAPHIC EVIDENCE FOR ACUTE ABDOMINAL DISEASE. Head CT 06/14/18 00:00 IMPRESSION: Bilateral low-density areas in the white matter that may be related to posterior reversible encephalopathy syndrome. Recommend correlation with patient's history and follow-up MRI with and without contrast could better evaluate as other underlying lesions are not excluded on this exam. Chest X-Ray 06/20/18 06:00 IMPRESSION: No significant change. Assessment & Plan - Diagnosis (1) Acute respiratory failure with hypoxemia Is this a current diagnosis for this admission?: Yes Plan: On BiPAP stable (2) Atrial fibrillation with rapid ventricular response Is this a current diagnosis for this admission?: Yes Plan: Cardizem plus digoxin (3) CHF (congestive heart failure) Qualifiers: Heart failure type: unspecified Heart failure chronicity: unspecified Qualified Code(s): I50.9 - Heart failure, unspecified Is this a current diagnosis for this admission?: Yes (4) COPD (chronic obstructive pulmonary disease) Qualifiers: COPD type: unspecified COPD Qualified Code(s): J44.9 - Chronic obstructive pulmonary disease, unspecified Is this a current diagnosis for this admission?: Yes Plan: Generic Name Dose Route Start Last Admin Trade Name Freq PRN Reason Stop Dose Admin Albuterol 2.5 mg 05/29/18 09:11 06/18/18 07:34 Ventolin 0.083% Neb 2.5 Mg/3 Ml Ampul NEB 06/28/18 09:10 Not Given RTQ6HP PRN SHORTNESS OF BREATH Prednisone 5 mg 06/02/18 10:00 06/18/18 09:25 Deltasone 5 Mg Tablet NG 07/02/18 09:59 5 mg DAILY EDER Albuterol/Ipratropium 3 ml 05/29/18 14:00 06/18/18 08:29 Duoneb 3 Ml Ampul NEB 06/28/18 13:59 3 ml RTQ6 EDER (5) GERD (gastroesophageal reflux disease) Qualifiers: Esophagitis presence: esophagitis presence not specified Qualified Code(s) : K21.9 - Gastro-esophageal reflux disease without esophagitis Is this a current diagnosis for this admission?: Yes Plan: Continue PPI (6) Sepsis Qualifiers: Sepsis type: sepsis due to unspecified organism Qualified Code(s): A41.9 - Sepsis, unspecified organism Is this a current diagnosis for this admission?: Yes - Time Total Critical Time (Minutes): 40
[2018-06-20] MEDS: ACETAMINOPHEN 325 MG TABLET NG PRN (18:37)
--- NOTE | 2018-06-20 19:18 | PDOC PROGRESS REPORT ---
Subjective Progress Note for:: 06/20/18 Subjective:: Episode of coughing with productive blood stained mucous earlier today. Patient reported some degree of chest pain with coughing and deep breathing. No fever or chills. More lucid and appropriate in responses. Tolerating oral feeding. No nausea or vomiting. Reason For Visit: ADMIT TO ICU FOR PNA AND SEPSIS Physical Exam Vital Signs: Temp Pulse Resp BP Pulse Ox 98.6 F 59 L 17 140/54 H 100 06/20/18 06:00 06/20/18 01:53 06/20/18 06:00 06/20/18 05:04 06/20/18 06:00 Intake & Output 06/19/18 06/20/18 06/21/18 06:59 06:59 06:59 Intake Total 1117 2033 Output Total 5275 1815 Balance -4158 218 Weight 73.3 kg 72.6 kg Physical Exam: Head exam: PRESENT: atraumatic, normocephalic Eye exam: PRESENT: conjunctiva pink, PERRLA Ear exam: PRESENT: normal external ear exam Mouth exam: PRESENT: Fairly moist. Respiratory exam: PRESENT: clear to auscultation cas, decreased breath sounds - at lung bases, Remain on supplemental oxygen via nasal cannula and BiPAP intermittent usage while sleeping Cardiovascular exam: PRESENT: RRR. ABSENT: diastolic murmur, rubs, systolic murmur Vascular exam: PRESENT: normal capillary refill. ABSENT: pallor GI/Abdominal exam: PRESENT: normal bowel sounds, soft. ABSENT: distended, guarding, mass, organomegaly, rebound, tenderness Rectal exam: PRESENT: deferred Extremities exam: ABSENT: pedal edema Musculoskeletal exam: PRESENT: normal inspection Neurological exam: PRESENT: altered - sedated Psychiatric exam: PRESENT: other - limited due to current state of sedation Skin exam: PRESENT: dry, warm Results Laboratory Results: 06/20/18 05:05 06/20/18 05:05 06/20/18 06/20/18 06/20/18 05:05 05:05 05:05 WBC 6.2 RBC 4.17 Hgb 10.6 L Hct 32.4 L MCV 78 L MCH 25.4 L MCHC 32.7 RDW 22.4 H Plt Count 267 Seg Neutrophils % 54.0 Lymphocytes % 26.8 Monocytes % 11.9 Eosinophils % 6.1 H Basophils % 1.2 Absolute Neutrophils 3.4 Absolute Lymphocytes 1.7 Absolute Monocytes 0.7 Absolute Eosinophils 0.4 Absolute Basophils 0.1 Carbonic Acid 1.33 HCO3/H2CO3 Ratio 19:1 ABG pH 7.39 ABG pCO2 44.3 ABG pO2 94.8 ABG HCO3 26.5 H ABG O2 Saturation 97.2 ABG Base Excess 1.3 FiO2 30% Sodium 143.3 Potassium 3.1 L Chloride 109 H Carbon Dioxide 26 Anion Gap 8 BUN 5 L Creatinine 0.54 Est GFR ( Amer) > 60 Est GFR (Non-Af Amer) > 60 Glucose 97 Calcium 7.6 L Magnesium 1.6 Impressions: Chest Ultrasound 06/03/18 11:30 IMPRESSION: MODERATE BILATERAL PLEURAL EFFUSIONS. KUB X-Ray 06/11/18 00:00 IMPRESSION: NO RADIOGRAPHIC EVIDENCE FOR ACUTE ABDOMINAL DISEASE. Head CT 06/14/18 00:00 IMPRESSION: Bilateral low-density areas in the white matter that may be related to posterior reversible encephalopathy syndrome. Recommend correlation with patient's history and follow-up MRI with and without contrast could better evaluate as other underlying lesions are not excluded on this exam. Chest X-Ray 06/20/18 06:00 IMPRESSION: No significant change. Assessment & Plan - Diagnosis (1) SIRS with acute organ dysfunction due to infectious process Is this a current diagnosis for this admission?: Yes (2) Lobar pneumonia, unspecified organism Is this a current diagnosis for this admission?: Yes (3) Grecia infection, disseminated Is this a current diagnosis for this admission?: Yes (4) Anemia due to infection Is this a current diagnosis for this admission?: Yes (5) Decompensated COPD with exacerbation (chronic obstructive pulmonary disease) Is this a current diagnosis for this admission?: Yes (6) Chronic atrial fibrillation Is this a current diagnosis for this admission?: Yes (7) HTN (hypertension) Qualifiers: Hypertension type: essential hypertension Qualified Code(s): I10 - Essential (primary) hypertension Is this a current diagnosis for this admission?: Yes (8) HLD (hyperlipidemia) Qualifiers: Hyperlipidemia type: pure hypercholesterolemia Qualified Code(s): E78.00 - Pure hypercholesterolemia, unspecified Is this a current diagnosis for this admission?: Yes (9) GERD (gastroesophageal reflux disease) Qualifiers: Esophagitis presence: esophagitis presence not specified Qualified Code(s) : K21.9 - Gastro-esophageal reflux disease without esophagitis Is this a current diagnosis for this admission?: Yes (10) Anxiety Is this a current diagnosis for this admission?: Yes (11) Depression Qualifiers: Depression Type: major depressive disorder Major depression recurrence: recurrent Active/Remission status: currently active Psychotic features: without psychotic features Is this a current diagnosis for this admission?: Yes (12) Acute delirium Is this a current diagnosis for this admission?: Yes (13) Electrolyte imbalance Is this a current diagnosis for this admission?: Yes (14) Tonic-clonic seizure disorder Is this a current diagnosis for this admission?: Yes (15) Bilateral pleural effusion Is this a current diagnosis for this admission?: Yes Plan: See attending physician orders. - Time Time Spent with patient: 25-34 minutes Medications reviewed and adjusted accordingly: Yes Anticipated discharge: SNF Within: Other - Inpatient Certification Based on my medical assessment, after consideration of the patient's comorbidities, presenting symptoms, or acuity I expect that the services needed warrant INPATIENT care.: Yes I certify that my determination is in accordance with my understanding of Medicare's requirements for reasonable and necessary INPATIENT services [42 CFR 412.3e].: Yes Medical Necessity: Need Close Monitoring Due to Risk of Patient Decompensation, Need For IV Fluids, Need For Continuous Telemetry Monitoring, Need for Nebulizer Therapy and Monitoring of Response, Need for IV Antibiotics, Risk of Complication if Not Cared For in Hospital Post Hospital Care: D/C or Transfer Summary - Plan Summary Plan Summary: See attending physician orders. Potassium replacement therapy in progress. Currently off Eliquis in preparation for thoracentesis tomorrow for moderate bilateral pleural effusion
[2018-06-21] MEDS: IPRATROPIUM/ALBUTEROL 0.5-2.5 MG/3 ML AMPUL NEB SCH ×4 (03:10→20:25)
[2018-06-21] MEDS: GABAPENTIN 400 MG CAPSULE NG SCH ×3 (05:50→22:00)
[2018-06-21] MEDS: CLINDAMYCIN 600 MG/D5W RTU 600 MG/50 ML RTUPB IV SCH ×3 (05:50→17:18)
[2018-06-21] MEDS: LANSOPRAZOLE 30 MG TAB.RAP.DR NG SCH (05:51)
[2018-06-21] MEDS: NORMAL SALINE 1000 ML 1,000 ML IV PRN ×2 (05:51→23:02)
[2018-06-21 06:31] LABS: ANION GAP 9 (5-19); BLOOD UREA NITROGEN 4 mg/dL (7-20); CARBON DIOXIDE 26 mmol/L (22-30); CHLORIDE 109 mmol/L (98-107); GLUCOSE 99 mg/dL (75-110); POTASSIUM 3.6 mmol/L (3.6-5.0); SODIUM 143.8 mmol/L (137-145)
[2018-06-21] MEDS: ACETAMINOPHEN 325 MG TABLET NG PRN ×2 (06:33→23:01)
[2018-06-21] MEDS: PHENYTOIN SODIUM INJ/PF 100 MG/2 ML SDV IV SCH ×3 (07:00→23:00)
[2018-06-21] MEDS ORDERED: POTASSIUM CHLORIDE 10 MEQ CAPSULE.ER PO ONE (08:18)
--- NOTE | 2018-06-21 08:18 | PDOC PROGRESS REPORT ---
Subjective Progress Note for:: 06/21/18 Subjective:: Spouse at bedside assisting with feeding. Patient remain appropriate in responses. No chest pain. Persistent difficulty with breathing with slight audible wheezing. No abdominal pain, diarrhea, nausea or vomiting. Coughing much better without any blood in sputum. Reason For Visit: ADMIT TO ICU FOR PNA AND SEPSIS Physical Exam Vital Signs: Temp Pulse Resp BP Pulse Ox 98.6 F 59 L 27 H 160/56 H 96 06/21/18 07:06 06/21/18 03:10 06/21/18 07:06 06/21/18 07:06 06/21/18 07:06 Intake & Output 06/20/18 06/21/18 06/22/18 06:59 06:59 06:59 Intake Total 2033 1590 Output Total 1815 1265 Balance 218 325 Weight 72.6 kg 77.4 kg Physical Exam: Head exam: PRESENT: atraumatic, normocephalic Eye exam: PRESENT: conjunctiva pink, PERRLA Ear exam: PRESENT: normal external ear exam Mouth exam: PRESENT: Fairly moist. Respiratory exam: PRESENT: clear to auscultation cas, decreased breath sounds - at lung bases, Remain on supplemental oxygen via nasal cannula and BiPAP intermittent usage while sleeping Cardiovascular exam: PRESENT: RRR. ABSENT: diastolic murmur, rubs, systolic murmur Vascular exam: PRESENT: normal capillary refill. ABSENT: pallor GI/Abdominal exam: PRESENT: normal bowel sounds, soft. ABSENT: distended, guarding, mass, organomegaly, rebound, tenderness Rectal exam: PRESENT: deferred Extremities exam: ABSENT: pedal edema Musculoskeletal exam: PRESENT: normal inspection Neurological exam: PRESENT: altered - sedated Psychiatric exam: PRESENT: other - limited due to current state of sedation Skin exam: PRESENT: dry, warm Results Laboratory Results: 06/20/18 05:05 06/21/18 06:00 06/20/18 06/21/18 10:00 06:00 Sodium 143.8 Potassium 3.6 Chloride 109 H Carbon Dioxide 26 Anion Gap 9 BUN 4 L Creatinine 0.52 Est GFR ( Amer) > 60 Est GFR (Non-Af Amer) > 60 Glucose 99 Calcium 8.0 L Magnesium 2.0 Impressions: Chest Ultrasound 06/03/18 11:30 IMPRESSION: MODERATE BILATERAL PLEURAL EFFUSIONS. KUB X-Ray 06/11/18 00:00 IMPRESSION: NO RADIOGRAPHIC EVIDENCE FOR ACUTE ABDOMINAL DISEASE. Head CT 06/14/18 00:00 IMPRESSION: Bilateral low-density areas in the white matter that may be related to posterior reversible encephalopathy syndrome. Recommend correlation with patient's history and follow-up MRI with and without contrast could better evaluate as other underlying lesions are not excluded on this exam. Chest X-Ray 06/20/18 06:00 IMPRESSION: No significant change. Assessment & Plan - Diagnosis (1) SIRS with acute organ dysfunction due to infectious process Is this a current diagnosis for this admission?: Yes (2) Lobar pneumonia, unspecified organism Is this a current diagnosis for this admission?: Yes (3) Grecia infection, disseminated Is this a current diagnosis for this admission?: Yes (4) Anemia due to infection Is this a current diagnosis for this admission?: Yes (5) Decompensated COPD with exacerbation (chronic obstructive pulmonary disease) Is this a current diagnosis for this admission?: Yes (6) Chronic atrial fibrillation Is this a current diagnosis for this admission?: Yes (7) HTN (hypertension) Qualifiers: Hypertension type: essential hypertension Qualified Code(s): I10 - Essential (primary) hypertension Is this a current diagnosis for this admission?: Yes (8) HLD (hyperlipidemia) Qualifiers: Hyperlipidemia type: pure hypercholesterolemia Qualified Code(s): E78.00 - Pure hypercholesterolemia, unspecified Is this a current diagnosis for this admission?: Yes (9) GERD (gastroesophageal reflux disease) Qualifiers: Esophagitis presence: esophagitis presence not specified Qualified Code(s) : K21.9 - Gastro-esophageal reflux disease without esophagitis Is this a current diagnosis for this admission?: Yes (10) Anxiety Is this a current diagnosis for this admission?: Yes (11) Depression Qualifiers: Depression Type: major depressive disorder Major depression recurrence: recurrent Active/Remission status: currently active Psychotic features: without psychotic features Is this a current diagnosis for this admission?: Yes (12) Acute delirium Is this a current diagnosis for this admission?: Yes (13) Electrolyte imbalance Is this a current diagnosis for this admission?: Yes (14) Tonic-clonic seizure disorder Is this a current diagnosis for this admission?: Yes (15) Bilateral pleural effusion Is this a current diagnosis for this admission?: Yes - Time Time Spent with patient: 25-34 minutes Medications reviewed and adjusted accordingly: Yes Anticipated discharge: SNF Within: Other - Inpatient Certification Based on my medical assessment, after consideration of the patient's comorbidities, presenting symptoms, or acuity I expect that the services needed warrant INPATIENT care.: Yes I certify that my determination is in accordance with my understanding of Medicare's requirements for reasonable and necessary INPATIENT services [42 CFR 412.3e].: Yes Medical Necessity: Need Close Monitoring Due to Risk of Patient Decompensation, Need For IV Fluids, Need For Continuous Telemetry Monitoring, Need for Nebulizer Therapy and Monitoring of Response, Need for IV Antibiotics, Risk of Complication if Not Cared For in Hospital Post Hospital Care: D/C or Transfer Summary - Plan Summary Plan Summary: Follow up pending thoracentesis schedule for today. Continue current medication management.
[2018-06-21] MEDS: VALSARTAN 160 MG TABLET NG SCH (09:15)
[2018-06-21] MEDS: DOCUSATE SODIUM 100 MG CAPSULE PO SCH ×2 (09:15→17:09)
[2018-06-21] MEDS: AMLODIPINE BESYLATE 5 MG TABLET PO SCH (09:15)
[2018-06-21] MEDS: PREDNISONE 5 MG TABLET NG SCH (09:15)
[2018-06-21] MEDS: MULTIVITAMIN ORAL LIQUID 60 ML NG SCH (09:16)
[2018-06-21] MEDS: DIGOXIN 0.25 MG TABLET NG SCH (09:16)
[2018-06-21] MEDS: HALOPERIDOL 0.5 MG TABLET NG SCH ×2 (09:18→22:59)
--- NOTE | 2018-06-21 13:18 | PDOC PROGRESS REPORT ---
Subjective Progress Note for:: 06/21/18 Subjective:: Awake Lethargic,Confused Reason For Visit: ADMIT TO ICU FOR PNA AND SEPSIS Physical Exam Vital Signs: Temp Pulse Resp BP Pulse Ox 98.6 F 77 24 H 160/56 H 98 06/21/18 07:06 06/21/18 08:16 06/21/18 08:16 06/21/18 07:06 06/21/18 08:16 Intake & Output 06/20/18 06/21/18 06/22/18 06:59 06:59 06:59 Intake Total 2033 1640 Output Total 1815 1265 Balance 218 375 Weight 72.6 kg 77.4 kg General appearance: PRESENT: no acute distress, disheveled, obese Head exam: PRESENT: atraumatic, normocephalic Eye exam: PRESENT: conjunctiva pale, EOMI. ABSENT: nystagmus, periorbital swelling, scleral icterus Mouth exam: PRESENT: dry mucosa, neck supple, tongue midline Neck exam: ABSENT: carotid bruit, JVD, lymphadenopathy, thyromegaly, tracheal deviation, tracheostomy Respiratory exam: PRESENT: decreased breath sounds, prolonged expiratory phas, rales, rhonchi, unlabored. ABSENT: retraction, stridor Cardiovascular exam: PRESENT: RRR, +S1, +S2 Pulses: PRESENT: normal radial pulses GI/Abdominal exam: PRESENT: hypoactive bowel sounds, soft Gentrourinary exam: PRESENT: indwelling catheter Extremities exam: PRESENT: pedal edema. ABSENT: clubbing, joint swelling Neurological exam: PRESENT: awake Psychiatric exam: PRESENT: flat affect Skin exam: PRESENT: dry, warm Results Laboratory Results: 06/20/18 05:05 06/21/18 06:00 06/20/18 06/21/18 10:00 06:00 Sodium 143.8 Potassium 3.6 Chloride 109 H Carbon Dioxide 26 Anion Gap 9 BUN 4 L Creatinine 0.52 Est GFR ( Amer) > 60 Est GFR (Non-Af Amer) > 60 Glucose 99 Calcium 8.0 L Magnesium 2.0 Impressions: Chest Ultrasound 06/03/18 11:30 IMPRESSION: MODERATE BILATERAL PLEURAL EFFUSIONS. KUB X-Ray 06/11/18 00:00 IMPRESSION: NO RADIOGRAPHIC EVIDENCE FOR ACUTE ABDOMINAL DISEASE. Head CT 06/14/18 00:00 IMPRESSION: Bilateral low-density areas in the white matter that may be related to posterior reversible encephalopathy syndrome. Recommend correlation with patient's history and follow-up MRI with and without contrast could better evaluate as other underlying lesions are not excluded on this exam. Chest X-Ray 06/20/18 06:00 IMPRESSION: No significant change. Assessment & Plan - Diagnosis (1) Acute respiratory failure with hypoxemia Is this a current diagnosis for this admission?: Yes Plan: On BiPAP stable (2) Atrial fibrillation with rapid ventricular response Is this a current diagnosis for this admission?: Yes Plan: Cardizem plus digoxin (3) CHF (congestive heart failure) Qualifiers: Heart failure type: unspecified Heart failure chronicity: unspecified Qualified Code(s): I50.9 - Heart failure, unspecified Is this a current diagnosis for this admission?: Yes (4) COPD (chronic obstructive pulmonary disease) Qualifiers: COPD type: unspecified COPD Qualified Code(s): J44.9 - Chronic obstructive pulmonary disease, unspecified Is this a current diagnosis for this admission?: Yes Plan: Continue current bronchodilator therapy (5) GERD (gastroesophageal reflux disease) Qualifiers: Esophagitis presence: esophagitis presence not specified Qualified Code(s) : K21.9 - Gastro-esophageal reflux disease without esophagitis Is this a current diagnosis for this admission?: Yes Plan: Continue PPI (6) Sepsis Qualifiers: Sepsis type: sepsis due to unspecified organism Qualified Code(s): A41.9 - Sepsis, unspecified organism Is this a current diagnosis for this admission?: Yes - Time Total Critical Time (Minutes): 40
[2018-06-22] MEDS: CLINDAMYCIN 600 MG/D5W RTU 600 MG/50 ML RTUPB IV SCH ×3 (02:16→17:56)
[2018-06-22] MEDS: IPRATROPIUM/ALBUTEROL 0.5-2.5 MG/3 ML AMPUL NEB SCH ×4 (02:35→20:37)
[2018-06-22] MEDS: LANSOPRAZOLE 30 MG TAB.RAP.DR NG SCH (05:00)
[2018-06-22] MEDS: ACETAMINOPHEN 325 MG TABLET NG PRN ×2 (05:00→13:11)
[2018-06-22] MEDS: GABAPENTIN 400 MG CAPSULE NG SCH ×2 (05:00→13:11)
[2018-06-22] MEDS: PHENYTOIN SODIUM INJ/PF 100 MG/2 ML SDV IV SCH ×3 (05:00→21:57)
[2018-06-22 05:37] LABS: ARTERIAL BLOOD BASE EXCESS 0.9 mmol/L; ARTERIAL BLOOD H2CO3 1.18 mmol/L (1.05-1.35); ARTERIAL BLOOD HCO3 25.3 mmol/L (20-26); ARTERIAL BLOOD O2 SATURATION 95.1 % (94-98); ARTERIAL BLOOD PCO2 39.3 mmHg (35-45); ARTERIAL BLOOD PH 7.43 (7.35-7.45); ARTERIAL BLOOD TOTAL CO2 26.5 mmol/L (21-25)
[2018-06-22 05:38] LABS: ABSOLUTE BASOPHILS # (AUTO) 0.1 10^3/uL (0.0-0.2); ABSOLUTE EOSINOPHILS # (AUTO) 0.4 10^3/uL (0.0-0.6); ABSOLUTE LYMPHOCYTES (AUTO) 1.6 10^3/uL (0.5-4.7); ABSOLUTE MONOCYTES (AUTO) 0.7 10^3/uL (0.1-1.4); ABSOLUTE NEUT (AUTO) 2.8 10^3/uL (1.7-8.2); BASOPHILS % (AUTO) 1.1 % (0-2); EOSINOPHILS % (AUTO) 6.9 % (0-6); HEMATOCRIT 35.4 % (36.0-47.0); HEMOGLOBIN 11.3 g/dL (12.0-15.5); LYMPHOCYTES % (AUTO) 28.7 % (13-45); MEAN CORPUSCULAR HGB CONC 32.1 g/dL (32.0-36.0); MEAN CORPUSCULAR VOLUME 78 fl (80-97); MONOCYTES % (AUTO) 12.6 % (3-13); PLATELET COUNT 295 10^3/uL (150-450); RED BLOOD COUNT 4.54 10^6/uL (3.72-5.28); RED CELL DISTRIBUTION WIDTH 21.9 % (11.5-14.0); SEGMENTED NEUTROPHILS % (AUTO) 50.7 % (42-78); TOTAL CELLS COUNTED % (AUTO) 100 %; WHITE BLOOD COUNT 5.6 10^3/uL (4.0-10.5)
[2018-06-22 05:40] LABS: ARTERIAL BLOOD FIO2 30%
[2018-06-22 05:47] LABS: ANION GAP 9 (5-19); BLOOD UREA NITROGEN 3 mg/dL (7-20); CALCIUM 7.9 mg/dL (8.4-10.2); CARBON DIOXIDE 26 mmol/L (22-30); CHLORIDE 106 mmol/L (98-107); GLUCOSE 102 mg/dL (75-110); POTASSIUM 3.8 mmol/L (3.6-5.0); SODIUM 140.6 mmol/L (137-145)
--- NOTE | 2018-06-22 07:50 | RADIOLOGY REPORT (SQ) ---
EXAM DESCRIPTION: XR CHEST 1 VIEW COMPLETED DATE/TME: 06/22/2018 06:00 CLINICAL HISTORY: 73 years Female, pleural effusion COMPARISON: 2 days prior. NUMBER OF VIEWS/TECHNIQUE: 1/AP FINDINGS: Moderate bibasilar opacity-effusion, moderate mixed streaky and patchy opacity of the right upper lobe, moderate interstitial markings, mildly enlarged cardiac silhouette, right jugular central line tip at the inferior right atrium, consider retracting the right internal jugular central line by 8.3 cm. No significant pneumothorax. Skeletal structures are stable. IMPRESSION: No significant change.
--- NOTE | 2018-06-22 08:54 | PDOC PROGRESS REPORT ---
Subjective Progress Note for:: 06/22/18 Subjective:: Patient is s/p right thoracentesis procedure with about 1100 mL of pleural fluid removed. She reported improvement in her breathing. She denied any chest pain. Tolerating oral feeding at the time of my visit. No nausea, vomiting or abdominal pain. No reported fever or chills. Reason For Visit: ADMIT TO ICU FOR PNA AND SEPSIS Physical Exam Vital Signs: Temp Pulse Resp BP Pulse Ox 98.2 F 54 L 19 154/53 H 100 06/22/18 07:06 06/22/18 08:12 06/22/18 07:06 06/22/18 07:06 06/22/18 07:06 Intake & Output 06/21/18 06/22/18 06/23/18 06:59 06:59 06:59 Intake Total 1640 1196 0 Output Total 1265 1975 75 Balance 375 -919 -75 Weight 77.4 kg 73.5 kg Physical Exam: Head exam: PRESENT: atraumatic, normocephalic Eye exam: PRESENT: conjunctiva pink, PERRLA Ear exam: PRESENT: normal external ear exam Mouth exam: PRESENT: Fairly moist. Respiratory exam: PRESENT: clear to auscultation cas, decreased breath sounds - at lung bases, Remain on supplemental oxygen via nasal cannula and BiPAP intermittent usage while sleeping Cardiovascular exam: PRESENT: RRR. ABSENT: diastolic murmur, rubs, systolic murmur Vascular exam: PRESENT: normal capillary refill. ABSENT: pallor GI/Abdominal exam: PRESENT: normal bowel sounds, soft. ABSENT: distended, guarding, mass, organomegaly, rebound, tenderness Extremities exam: ABSENT: pedal edema Musculoskeletal exam: PRESENT: normal inspection Neurological exam: PRESENT: altered - sedated Psychiatric exam: PRESENT: other - limited due to current state of sedation Skin exam: PRESENT: dry, warm Results Laboratory Results: 06/22/18 05:15 06/22/18 05:15 06/22/18 06/22/18 06/22/18 05:15 05:15 05:15 WBC 5.6 RBC 4.54 Hgb 11.3 L Hct 35.4 L MCV 78 L MCH 25.0 L MCHC 32.1 RDW 21.9 H Plt Count 295 Seg Neutrophils % 50.7 Lymphocytes % 28.7 Monocytes % 12.6 Eosinophils % 6.9 H Basophils % 1.1 Absolute Neutrophils 2.8 Absolute Lymphocytes 1.6 Absolute Monocytes 0.7 Absolute Eosinophils 0.4 Absolute Basophils 0.1 Carbonic Acid 1.18 HCO3/H2CO3 Ratio 21:1 ABG pH 7.43 ABG pCO2 39.3 ABG pO2 73.0 L ABG HCO3 25.3 ABG O2 Saturation 95.1 ABG Base Excess 0.9 FiO2 30% Sodium 140.6 Potassium 3.8 Chloride 106 Carbon Dioxide 26 Anion Gap 9 BUN 3 L Creatinine 0.47 L Est GFR ( Amer) > 60 Est GFR (Non-Af Amer) > 60 Glucose 102 Calcium 7.9 L Magnesium 1.7 Impressions: Chest Ultrasound 06/03/18 11:30 IMPRESSION: MODERATE BILATERAL PLEURAL EFFUSIONS. KUB X-Ray 06/11/18 00:00 IMPRESSION: NO RADIOGRAPHIC EVIDENCE FOR ACUTE ABDOMINAL DISEASE. Head CT 06/14/18 00:00 IMPRESSION: Bilateral low-density areas in the white matter that may be related to posterior reversible encephalopathy syndrome. Recommend correlation with patient's history and follow-up MRI with and without contrast could better evaluate as other underlying lesions are not excluded on this exam. Chest X-Ray 06/22/18 06:00 IMPRESSION: No significant change. Assessment & Plan - Diagnosis (1) SIRS with acute organ dysfunction due to infectious process Is this a current diagnosis for this admission?: Yes (2) Lobar pneumonia, unspecified organism Is this a current diagnosis for this admission?: Yes (3) Grecia infection, disseminated Is this a current diagnosis for this admission?: Yes (4) Anemia due to infection Is this a current diagnosis for this admission?: Yes (5) Decompensated COPD with exacerbation (chronic obstructive pulmonary disease) Is this a current diagnosis for this admission?: Yes (6) Chronic atrial fibrillation Is this a current diagnosis for this admission?: Yes (7) HTN (hypertension) Qualifiers: Hypertension type: essential hypertension Qualified Code(s): I10 - Essential (primary) hypertension Is this a current diagnosis for this admission?: Yes (8) HLD (hyperlipidemia) Qualifiers: Hyperlipidemia type: pure hypercholesterolemia Qualified Code(s): E78.00 - Pure hypercholesterolemia, unspecified Is this a current diagnosis for this admission?: Yes (9) GERD (gastroesophageal reflux disease) Qualifiers: Esophagitis presence: esophagitis presence not specified Qualified Code(s) : K21.9 - Gastro-esophageal reflux disease without esophagitis Is this a current diagnosis for this admission?: Yes (10) Anxiety Is this a current diagnosis for this admission?: Yes (11) Depression Qualifiers: Depression Type: major depressive disorder Major depression recurrence: recurrent Active/Remission status: currently active Psychotic features: without psychotic features Is this a current diagnosis for this admission?: Yes (12) Acute delirium Is this a current diagnosis for this admission?: Yes (13) Electrolyte imbalance Is this a current diagnosis for this admission?: Yes (14) Tonic-clonic seizure disorder Is this a current diagnosis for this admission?: Yes (15) Bilateral pleural effusion Is this a current diagnosis for this admission?: Yes - Time Time Spent with patient: 25-34 minutes Medications reviewed and adjusted accordingly: Yes Anticipated discharge: SNF Within: Other - Inpatient Certification Based on my medical assessment, after consideration of the patient's comorbidities, presenting symptoms, or acuity I expect that the services needed warrant INPATIENT care.: Yes I certify that my determination is in accordance with my understanding of Medicare's requirements for reasonable and necessary INPATIENT services [42 CFR 412.3e].: Yes Medical Necessity: Need Close Monitoring Due to Risk of Patient Decompensation, Need For Continuous Telemetry Monitoring, Need for Nebulizer Therapy and Monitoring of Response, Need for IV Antibiotics, Risk of Complication if Not Cared For in Hospital Post Hospital Care: D/C or Transfer Summary - Plan Summary Plan Summary: See attending physician orders. Possible transfer to [facility] tomorrow.
[2018-06-22 09:06] LABS: INTERNATIONAL RATION (INR) 0.99; PROTHROMBIN TIME 13.6 SEC (11.4-15.4)
[2018-06-22] MEDS: DOCUSATE SODIUM 100 MG CAPSULE PO SCH ×2 (09:06→17:56)
[2018-06-22 09:07] LABS: PARTIAL THROMBOPLASTIN TIME 24.3 SEC (23.5-35.8)
[2018-06-22] MEDS: DIGOXIN 0.25 MG TABLET NG SCH (09:07)
[2018-06-22] MEDS: AMLODIPINE BESYLATE 5 MG TABLET PO SCH (09:44)
[2018-06-22] MEDS: PREDNISONE 5 MG TABLET NG SCH (09:44)
[2018-06-22] MEDS: VALSARTAN 160 MG TABLET NG SCH (09:44)
[2018-06-22] MEDS: MULTIVITAMIN ORAL LIQUID 60 ML NG SCH (09:45)
[2018-06-22] MEDS: HALOPERIDOL 0.5 MG TABLET NG SCH (09:45)
--- NOTE | 2018-06-22 12:00 | RADIOLOGY REPORT (SQ) ---
EXAM DESCRIPTION: CHEST SINGLE VIEW COMPLETED DATE/TIME: 06/22/2018 11:52 am REASON FOR STUDY: Post Right sided Thoracentesis COMPARISON: 06/22/2018 at 0549 hours. EXAM PARAMETERS: NUMBER OF VIEWS: One view. TECHNIQUE: Single frontal radiographic view of the chest acquired. RADIATION DOSE: NA LIMITATIONS: None. FINDINGS: LUNGS AND PLEURA: Previously seen right pleural effusion has resolved following thoracente sis. No pneumothorax. Patchy infiltrate in the right upper lobe. Left pleural effusion unchanged. MEDIASTINUM AND HILAR STRUCTURES: No masses. Contour normal. HEART AND VASCULAR STRUCTURES: Heart normal in size. Normal vasculature. BONES: No acute findings. HARDWARE: Central line. OTHER: No other significant finding. IMPRESSION: NO PNEUMOTHORAX FOLLOWING THORACENTESIS. OTHER FINDINGS ABOVE. TECHNICAL DOCUMENTATION: JOB ID: [id number] [employer]- All Rights Reserved Reading location - IP/workstation name: [email or web address]
--- NOTE | 2018-06-22 12:03 | RADIOLOGY REPORT (SQ) ---
EXAM DESCRIPTION: U/S THORACENTESIS WITH IMAGING COMPLETED DATE/TIME: 06/22/2018 11:36 am REASON FOR STUDY: r pleural effusion COMPARISON: None. LIMITATIONS: None. PROCEDURE: Procedure, risks, benefit, and alternative explained to patient who then gave written con sent. The posterior right chest wall was marked using ultrasound guidance. A time-out was called fo r correct marking verification. Chest prepped and draped using sterile technique. Local anesthesia a chieved using 10 ml of 1% lidocaine injection. A 6fr Safe-T- Centesis set was introduced into the [facility] pleural space. Fluid was aspirated. The catheter was removed and the entry site was covered wit h sterile bandage. No immediate complications noted. Images acquired during the procedure were stored on PACS. FINDINGS: ENTRY SITE: posterior right chest. FLUID VOLUME: 1100 mL. FLUID ANALYSIS: Yellow straw-colored. OTHER: Fluid sent to the lab for testing. IMPRESSION: SUCCESSFUL THORACENTESIS USING ULTRASOUND GUIDANCE. COMMENT: Patient medication list reviewed: Yes- Quality ID# [id number] professional attests to doc umenting in the medical record they obtained, updated, or reviewed the patient's current medications. TECHNICAL DOCUMENTATION: JOB ID: [id number] [employer]- All Rights Reserved Reading location - IP/workstation name: [email or web address]
[2018-06-22 12:38] LABS: FLUID APPEARANCE CLEAR; FLUID COLOR LIGHT YELLOW; FLUID VISCOSITY LIQUID
[2018-06-22 12:47] LABS: FLUID SOURCE LUNG; FLUID TYPE PLEURAL
--- NOTE | 2018-06-22 16:14 | RADIOLOGY REPORT (SQ) ---
EXAM DESCRIPTION: CHEST SINGLE VIEW COMPLETED DATE/TIME: 06/22/2018 4:00 pm REASON FOR STUDY: 2 Hour Post Thoracentesis Re-check COMPARISON: 06/22/2018 at 1142 hours EXAM PARAMETERS: NUMBER OF VIEWS: One view. TECHNIQUE: Single frontal radiographic view of the chest acquired. RADIATION DOSE: NA LIMITATIONS: None. FINDINGS: LUNGS AND PLEURA: No pneumothorax after thoracentesis. Again seen is opacity in the right upper lobe and left pleural effusion with left basilar density. MEDIASTINUM AND HILAR STRUCTURES: No masses. Contour normal. HEART AND VASCULAR STRUCTURES: Heart normal in size. Normal vasculature. BONES: No acute findings. HARDWARE: Central line. OTHER: No other significant finding. IMPRESSION: NO PNEUMOTHORAX AFTER THORACENTESIS. NO CHANGE IN APPEARANCE OF THE CHEST. TECHNICAL DOCUMENTATION: JOB ID: [id number] [employer]- All Rights Reserved Reading location - IP/workstation name: [email or web address]
[2018-06-22] MEDS: NORMAL SALINE 1000 ML 1,000 ML IV PRN (17:55)
[2018-06-22] MEDS: ACETAMINOPHEN 325 MG TABLET PO PRN (19:39)
[2018-06-22] MEDS: GABAPENTIN 400 MG CAPSULE PO SCH (21:56)
[2018-06-23] MEDS: CLINDAMYCIN 600 MG/D5W RTU 600 MG/50 ML RTUPB IV SCH ×3 (02:17→18:29)
[2018-06-23] MEDS: IPRATROPIUM/ALBUTEROL 0.5-2.5 MG/3 ML AMPUL NEB SCH ×4 (02:38→19:42)
[2018-06-23] MEDS: GABAPENTIN 400 MG CAPSULE PO SCH ×3 (06:51→21:31)
[2018-06-23] MEDS: PHENYTOIN SODIUM INJ/PF 100 MG/2 ML SDV IV SCH ×3 (06:51→21:31)
[2018-06-23] MEDS: LANSOPRAZOLE 30 MG TAB.RAP.DR PO SCH (06:52)
[2018-06-23 07:31] LABS: ABSOLUTE BASOPHILS # (AUTO) 0.1 10^3/uL (0.0-0.2); ABSOLUTE EOSINOPHILS # (AUTO) 0.3 10^3/uL (0.0-0.6); ABSOLUTE LYMPHOCYTES (AUTO) 1.3 10^3/uL (0.5-4.7); ABSOLUTE MONOCYTES (AUTO) 0.8 10^3/uL (0.1-1.4); ABSOLUTE NEUT (AUTO) 3.4 10^3/uL (1.7-8.2); BASOPHILS % (AUTO) 0.9 % (0-2); EOSINOPHILS % (AUTO) 5.2 % (0-6); HEMATOCRIT 36.3 % (36.0-47.0); HEMOGLOBIN 11.6 g/dL (12.0-15.5); LYMPHOCYTES % (AUTO) 22.9 % (13-45); MEAN CORPUSCULAR HEMOGLOBIN 24.8 pg (27.0-33.4); MEAN CORPUSCULAR HGB CONC 31.8 g/dL (32.0-36.0); MEAN CORPUSCULAR VOLUME 78 fl (80-97); MONOCYTES % (AUTO) 13.5 % (3-13); PLATELET COUNT 285 10^3/uL (150-450); RED BLOOD COUNT 4.66 10^6/uL (3.72-5.28); RED CELL DISTRIBUTION WIDTH 21.8 % (11.5-14.0); SEGMENTED NEUTROPHILS % (AUTO) 57.5 % (42-78); TOTAL CELLS COUNTED % (AUTO) 100 %; WHITE BLOOD COUNT 5.9 10^3/uL (4.0-10.5)
[2018-06-23 07:40] LABS: ARTERIAL BLOOD BASE EXCESS 0.3 mmol/L; ARTERIAL BLOOD H2CO3 1.32 mmol/L (1.05-1.35); ARTERIAL BLOOD HCO3 25.6 mmol/L (20-26); ARTERIAL BLOOD O2 SATURATION 94.4 % (94-98); ARTERIAL BLOOD PH 7.38 (7.35-7.45); ARTERIAL BLOOD PO2 72.7 mmHg (80-100)
[2018-06-23 07:41] LABS: ANION GAP 10 (5-19); BLOOD UREA NITROGEN 3 mg/dL (7-20); CALCIUM 7.8 mg/dL (8.4-10.2); CARBON DIOXIDE 26 mmol/L (22-30); CHLORIDE 104 mmol/L (98-107); GLUCOSE 114 mg/dL (75-110); POTASSIUM 3.3 mmol/L (3.6-5.0); SODIUM 140.1 mmol/L (137-145)
[2018-06-23 07:42] LABS: ARTERIAL BLOOD FIO2 2L
[2018-06-23] MEDS: ENALAPRILAT DIHYDRATE INJ/PF 2.5 MG/2 ML SDV IV PRN (08:05)
--- NOTE | 2018-06-23 08:47 | RADIOLOGY REPORT (SQ) ---
EXAM DESCRIPTION: CHEST SINGLE VIEW COMPLETED DATE/TIME: 06/23/2018 6:50 am REASON FOR STUDY: p effusion COMPARISON: 06/22/2018 NUMBER OF VIEWS: One view. TECHNIQUE: Single frontal radiographic image of the chest acquired. LIMITATIONS: None. FINDINGS: LUNGS AND PLEURA: Right upper and left lower lobe airspace disease not significantly mcqueen ed. No pneumothorax. MEDIASTINUM AND HEART: Stable heart size and mediastinal structures. SUPPORT DEVICES: Appropriate location without change. BONY STRUCTURES: No acute findings. HARDWARE: None. OTHER: No other significant finding. IMPRESSION: Bilateral pneumonia. No significant change. Reading location - IP/workstation name: [email or web address]
[2018-06-23] MEDS: HALOPERIDOL 0.5 MG TABLET PO SCH ×3 (09:40→21:32)
[2018-06-23] MEDS: AMLODIPINE BESYLATE 5 MG TABLET PO SCH (09:41)
[2018-06-23] MEDS: VALSARTAN 160 MG TABLET PO SCH (09:41)
[2018-06-23] MEDS: MULTIVIT-STRESS FORMULA/ZINC TABLET PO SCH (09:41)
[2018-06-23] MEDS: DIGOXIN 0.25 MG TABLET PO SCH (09:41)
[2018-06-23] MEDS: PREDNISONE 5 MG TABLET PO SCH (09:42)
[2018-06-23] MEDS: APIXABAN 5 MG TABLET NG SCH ×2 (09:42→18:27)
[2018-06-23] MEDS: DOCUSATE SODIUM 100 MG CAPSULE PO SCH ×2 (09:43→18:22)
[2018-06-23] MEDS: ACETAMINOPHEN 325 MG TABLET PO PRN (10:05)
[2018-06-23] MEDS: NORMAL SALINE 1000 ML 1,000 ML IV PRN (10:06)
[2018-06-23] MEDS: MAGNESIUM SULFATE/D5W 1 GM/100 ML RTUPB IV SCH ×3 (10:08→12:30)
[2018-06-23] MEDS: POTASSI CL 20 MEQ/50 ML RIDER 20 MEQ/50 ML RTUPB IV SCH ×2 (10:09→11:15)
[2018-06-23] MEDS ORDERED: POTASSIUM CHLORIDE 10 MEQ CAPSULE.ER PO ONE (10:30)
--- NOTE | 2018-06-23 13:10 | PDOC PROGRESS REPORT ---
Subjective Progress Note for:: 06/23/18 Subjective:: Patient is feeling much better after thoracocentesis removed 1100 cc of the fluids Patient's denied any chest pain denied any shortness of the breath Denied any abdominal pain As per discussed with the pulmonary patient should be okay to transfer to the [facility] Reason For Visit: ADMIT TO ICU FOR PNA AND SEPSIS Physical Exam Vital Signs: Temp Pulse Resp BP Pulse Ox 98.6 F 74 23 H 157/108 H 98 06/23/18 12:06 06/23/18 10:00 06/23/18 12:06 06/23/18 12:06 06/23/18 12:06 Intake & Output 06/22/18 06/23/18 06/24/18 06:59 06:59 06:59 Intake Total 1246 1688 1200 Output Total 0655 0040 1735 Balance -070 -182 -614 Weight 73.5 kg 71.4 kg General appearance: PRESENT: no acute distress, well-developed, well-nourished Head exam: PRESENT: atraumatic, normocephalic Eye exam: PRESENT: conjunctiva pink, EOMI, PERRLA. ABSENT: scleral icterus Ear exam: PRESENT: normal external ear exam Mouth exam: PRESENT: moist, tongue midline Neck exam: PRESENT: full ROM. ABSENT: carotid bruit, JVD, lymphadenopathy, thyromegaly Respiratory exam: PRESENT: clear to auscultation cas Cardiovascular exam: PRESENT: RRR. ABSENT: diastolic murmur, rubs, systolic murmur Pulses: PRESENT: normal dorsalis pedis pul, +2 pedal pulses bilateral Vascular exam: PRESENT: normal capillary refill GI/Abdominal exam: PRESENT: normal bowel sounds, soft. ABSENT: distended, guarding, mass, organolmegaly, rebound, tenderness Rectal exam: PRESENT: deferred Extremities exam: ABSENT: pedal edema Neurological exam: PRESENT: alert, awake, oriented to person, oriented to place , oriented to time, oriented to situation, CN II-XII grossly intact. ABSENT: motor sensory deficit Psychiatric exam: PRESENT: appropriate affect, normal mood. ABSENT: homicidal ideation, suicidal ideation Skin exam: PRESENT: dry, intact, warm. ABSENT: cyanosis, rash Results Laboratory Results: 06/23/18 07:10 06/23/18 07:10 06/23/18 06/23/18 06/23/18 07:10 07:10 07:25 WBC 5.9 RBC 4.66 Hgb 11.6 L Hct 36.3 MCV 78 L MCH 24.8 L MCHC 31.8 L RDW 21.8 H Plt Count 285 Seg Neutrophils % 57.5 Lymphocytes % 22.9 Monocytes % 13.5 H Eosinophils % 5.2 Basophils % 0.9 Absolute Neutrophils 3.4 Absolute Lymphocytes 1.3 Absolute Monocytes 0.8 Absolute Eosinophils 0.3 Absolute Basophils 0.1 Carbonic Acid 1.32 HCO3/H2CO3 Ratio 19:1 ABG pH 7.38 ABG pCO2 44.0 ABG pO2 72.7 L ABG HCO3 25.6 ABG O2 Saturation 94.4 ABG Base Excess 0.3 FiO2 2L Sodium 140.1 Potassium 3.3 L Chloride 104 Carbon Dioxide 26 Anion Gap 10 BUN 3 L Creatinine 0.47 L Est GFR ( Amer) > 60 Est GFR (Non-Af Amer) > 60 Glucose 114 H Calcium 7.8 L Magnesium 1.5 L Impressions: Chest Ultrasound 06/03/18 11:30 IMPRESSION: MODERATE BILATERAL PLEURAL EFFUSIONS. KUB X-Ray 06/11/18 00:00 IMPRESSION: NO RADIOGRAPHIC EVIDENCE FOR ACUTE ABDOMINAL DISEASE. Head CT 06/14/18 00:00 IMPRESSION: Bilateral low-density areas in the white matter that may be related to posterior reversible encephalopathy syndrome. Recommend correlation with patient's history and follow-up MRI with and without contrast could better evaluate as other underlying lesions are not excluded on this exam. Thoracentesis Ultrasound 06/22/18 08:46 IMPRESSION: SUCCESSFUL THORACENTESIS USING ULTRASOUND GUIDANCE. Chest X-Ray 06/23/18 06:00 IMPRESSION: Bilateral pneumonia. No significant change. Assessment & Plan - Diagnosis (1) Acute respiratory failure with hypoxemia Is this a current diagnosis for this admission?: Yes (2) Bilateral pleural effusion Is this a current diagnosis for this admission?: Yes (3) CHF (congestive heart failure) Qualifiers: Heart failure type: unspecified Heart failure chronicity: unspecified Qualified Code(s): I50.9 - Heart failure, unspecified Is this a current diagnosis for this admission?: Yes (4) COPD (chronic obstructive pulmonary disease) Qualifiers: COPD type: unspecified COPD Qualified Code(s): J44.9 - Chronic obstructive pulmonary disease, unspecified Is this a current diagnosis for this admission?: Yes (5) Electrolyte imbalance Is this a current diagnosis for this admission?: Yes (6) GERD (gastroesophageal reflux disease) Qualifiers: Esophagitis presence: esophagitis presence not specified Qualified Code(s) : K21.9 - Gastro-esophageal reflux disease without esophagitis Is this a current diagnosis for this admission?: Yes (7) Hypotension Qualifiers: Hypotension type: unspecified hypotension type Qualified Code(s): I95.9 - Hypotension, unspecified Is this a current diagnosis for this admission?: Yes (8) Pneumonia Qualifiers: Pneumonia type: due to methicillin-resistant Staphylococcus aureus (MRSA) Laterality: bilateral Lung location: unspecified part of lung Qualified Code (s): J15.212 - Pneumonia due to Methicillin resistant Staphylococcus aureus Is this a current diagnosis for this admission?: Yes (9) Sepsis Qualifiers: Sepsis type: sepsis due to unspecified organism Qualified Code(s): A41.9 - Sepsis, unspecified organism Is this a current diagnosis for this admission?: Yes - Time Time Spent with patient: 15-24 minutes Medications reviewed and adjusted accordingly: Yes Anticipated discharge: Other Within: Other - Inpatient Certification Medical Necessity: Need Close Monitoring Due to Risk of Patient Decompensation, Need for IV Antibiotics Post Hospital Care: D/C Net Sql Developer Documentation - Plan Summary Plan Summary: Continues IV clindamycin Transport the patient on IMCU
[2018-06-24] MEDS: IPRATROPIUM/ALBUTEROL 0.5-2.5 MG/3 ML AMPUL NEB SCH ×4 (01:02→21:03)
[2018-06-24] MEDS: CLINDAMYCIN 600 MG/D5W RTU 600 MG/50 ML RTUPB IV SCH ×3 (02:57→17:59)
[2018-06-24] MEDS: GABAPENTIN 400 MG CAPSULE PO SCH ×3 (05:44→23:09)
[2018-06-24] MEDS: LANSOPRAZOLE 30 MG TAB.RAP.DR PO SCH (05:44)
[2018-06-24] MEDS: PHENYTOIN SODIUM INJ/PF 100 MG/2 ML SDV IV SCH ×3 (05:44→23:09)
[2018-06-24 06:21] LABS: TOTAL PROTEIN BODY FLUID 1.9 g/dL (.)
[2018-06-24 06:49] LABS: ARTERIAL BLOOD BASE EXCESS 1.8 mmol/L; ARTERIAL BLOOD H2CO3 1.47 mmol/L (1.05-1.35); ARTERIAL BLOOD HCO3 27.7 mmol/L (20-26); ARTERIAL BLOOD O2 SATURATION 95.9 % (94-98); ARTERIAL BLOOD PCO2 48.8 mmHg (35-45); ARTERIAL BLOOD PH 7.37 (7.35-7.45); ARTERIAL BLOOD PO2 83.7 mmHg (80-100); ARTERIAL BLOOD TOTAL CO2 29.2 mmol/L (21-25)
[2018-06-24 06:50] LABS: ARTERIAL BLOOD FIO2 36%
[2018-06-24 06:53] LABS: ABSOLUTE BASOPHILS # (AUTO) 0.1 10^3/uL (0.0-0.2); ABSOLUTE EOSINOPHILS # (AUTO) 0.3 10^3/uL (0.0-0.6); ABSOLUTE LYMPHOCYTES (AUTO) 1.5 10^3/uL (0.5-4.7); ABSOLUTE MONOCYTES (AUTO) 0.8 10^3/uL (0.1-1.4); ABSOLUTE NEUT (AUTO) 2.8 10^3/uL (1.7-8.2); BASOPHILS % (AUTO) 1.2 % (0-2); EOSINOPHILS % (AUTO) 5.8 % (0-6); HEMATOCRIT 34.6 % (36.0-47.0); HEMOGLOBIN 11.1 g/dL (12.0-15.5); LYMPHOCYTES % (AUTO) 27.6 % (13-45); MEAN CORPUSCULAR HEMOGLOBIN 25.4 pg (27.0-33.4); MEAN CORPUSCULAR HGB CONC 32.2 g/dL (32.0-36.0); MEAN CORPUSCULAR VOLUME 79 fl (80-97); MONOCYTES % (AUTO) 14.5 % (3-13); PLATELET COUNT 278 10^3/uL (150-450); RED BLOOD COUNT 4.39 10^6/uL (3.72-5.28); RED CELL DISTRIBUTION WIDTH 21.8 % (11.5-14.0); SEGMENTED NEUTROPHILS % (AUTO) 50.9 % (42-78); TOTAL CELLS COUNTED % (AUTO) 100 %; WHITE BLOOD COUNT 5.5 10^3/uL (4.0-10.5)
[2018-06-24 07:33] LABS: ANION GAP 8 (5-19); BLOOD UREA NITROGEN 3 mg/dL (7-20); CALCIUM 7.8 mg/dL (8.4-10.2); CARBON DIOXIDE 27 mmol/L (22-30); CHLORIDE 104 mmol/L (98-107); GLUCOSE 101 mg/dL (75-110); POTASSIUM 3.7 mmol/L (3.6-5.0); SODIUM 138.9 mmol/L (137-145)
--- NOTE | 2018-06-24 08:42 | RADIOLOGY REPORT (SQ) ---
EXAM DESCRIPTION: CHEST SINGLE VIEW COMPLETED DATE/TIME: 06/24/2018 8:19 am REASON FOR STUDY: resp failure/effusion COMPARISON: 06/23/2018 NUMBER OF VIEWS: One view. TECHNIQUE: Single frontal radiographic image of the chest acquired. LIMITATIONS: None. FINDINGS: LUNGS AND PLEURA: Airspace disease right upper and left lower lobes. Small pleural effusi ons. MEDIASTINUM AND HEART: Stable heart size and mediastinal structures. SUPPORT DEVICES: Appropriate location without change. BONY STRUCTURES: No acute findings. HARDWARE: None. OTHER: No other significant finding. IMPRESSION: Bilateral pneumonia. No significant change. Reading location - IP/workstation name: [email or web address]
[2018-06-24] MEDS: DOCUSATE SODIUM 100 MG CAPSULE PO SCH ×2 (09:05→17:56)
[2018-06-24] MEDS: APIXABAN 5 MG TABLET NG SCH ×2 (09:21→17:58)
[2018-06-24] MEDS: DIGOXIN 0.25 MG TABLET PO SCH (09:21)
[2018-06-24] MEDS: MULTIVIT-STRESS FORMULA/ZINC TABLET PO SCH (09:21)
[2018-06-24] MEDS: PREDNISONE 5 MG TABLET PO SCH (09:21)
[2018-06-24] MEDS: AMLODIPINE BESYLATE 5 MG TABLET PO SCH (09:21)
[2018-06-24] MEDS: VALSARTAN 160 MG TABLET PO SCH (09:21)
[2018-06-24] MEDS: HALOPERIDOL 0.5 MG TABLET PO SCH ×2 (09:21→23:09)
--- NOTE | 2018-06-24 10:41 | PDOC PROGRESS REPORT ---
Subjective Progress Note for:: 06/24/18 Subjective:: Patient is currently doing well Patient's denied any chest pain denied any shortness of the breath Reason For Visit: ADMIT TO ICU FOR PNA AND SEPSIS Physical Exam Vital Signs: Temp Pulse Resp BP Pulse Ox 97.8 F 88 16 164/63 H 100 06/24/18 07:51 06/24/18 08:20 06/24/18 08:20 06/24/18 07:51 06/24/18 07:51 Intake & Output 06/23/18 06/24/18 06/25/18 06:59 06:59 06:59 Intake Total 1688 3310 50 Output Total 1870 3435 Balance -182 -125 50 Weight 71.4 kg 76.9 kg General appearance: PRESENT: no acute distress, well-developed, well-nourished Head exam: PRESENT: atraumatic, normocephalic Eye exam: PRESENT: conjunctiva pink, EOMI, PERRLA. ABSENT: scleral icterus Ear exam: PRESENT: normal external ear exam Mouth exam: PRESENT: moist, tongue midline Neck exam: PRESENT: full ROM. ABSENT: carotid bruit, JVD, lymphadenopathy, thyromegaly Respiratory exam: PRESENT: clear to auscultation cas Cardiovascular exam: PRESENT: RRR. ABSENT: diastolic murmur, rubs, systolic murmur Pulses: PRESENT: normal dorsalis pedis pul, +2 pedal pulses bilateral Vascular exam: PRESENT: normal capillary refill GI/Abdominal exam: PRESENT: normal bowel sounds, soft. ABSENT: distended, guarding, mass, organolmegaly, rebound, tenderness Rectal exam: PRESENT: deferred Extremities exam: ABSENT: pedal edema Neurological exam: PRESENT: alert, awake, oriented to person, oriented to place , oriented to time, oriented to situation, CN II-XII grossly intact. ABSENT: motor sensory deficit Psychiatric exam: PRESENT: appropriate affect, normal mood. ABSENT: homicidal ideation, suicidal ideation Skin exam: PRESENT: dry, intact, warm. ABSENT: cyanosis, rash Results Laboratory Results: 06/24/18 05:30 06/24/18 05:30 06/22/18 06/24/18 06/24/18 11:30 05:30 05:30 WBC 5.5 RBC 4.39 Hgb 11.1 L Hct 34.6 L MCV 79 L MCH 25.4 L MCHC 32.2 RDW 21.8 H Plt Count 278 Seg Neutrophils % 50.9 Lymphocytes % 27.6 Monocytes % 14.5 H Eosinophils % 5.8 Basophils % 1.2 Absolute Neutrophils 2.8 Absolute Lymphocytes 1.5 Absolute Monocytes 0.8 Absolute Eosinophils 0.3 Absolute Basophils 0.1 Carbonic Acid HCO3/H2CO3 Ratio ABG pH ABG pCO2 ABG pO2 ABG HCO3 ABG O2 Saturation ABG Base Excess FiO2 Sodium 138.9 Potassium 3.7 Chloride 104 Carbon Dioxide 27 Anion Gap 8 BUN 3 L Creatinine 0.41 L Est GFR ( Amer) > 60 Est GFR (Non-Af Amer) > 60 Glucose 101 Calcium 7.8 L Magnesium 2.0 Fluid Glucose 112 Fluid Total Protein 1.9 Fluid LDH 88 06/24/18 06:30 WBC RBC Hgb Hct MCV MCH MCHC RDW Plt Count Seg Neutrophils % Lymphocytes % Monocytes % Eosinophils % Basophils % Absolute Neutrophils Absolute Lymphocytes Absolute Monocytes Absolute Eosinophils Absolute Basophils Carbonic Acid 1.47 H HCO3/H2CO3 Ratio 18:1 ABG pH 7.37 ABG pCO2 48.8 H ABG pO2 83.7 ABG HCO3 27.7 H ABG O2 Saturation 95.9 ABG Base Excess 1.8 FiO2 36% Sodium Potassium Chloride Carbon Dioxide Anion Gap BUN Creatinine Est GFR ( Amer) Est GFR (Non-Af Amer) Glucose Calcium Magnesium Fluid Glucose Fluid Total Protein Fluid LDH Impressions: Chest Ultrasound 06/03/18 11:30 IMPRESSION: MODERATE BILATERAL PLEURAL EFFUSIONS. KUB X-Ray 06/11/18 00:00 IMPRESSION: NO RADIOGRAPHIC EVIDENCE FOR ACUTE ABDOMINAL DISEASE. Head CT 06/14/18 00:00 IMPRESSION: Bilateral low-density areas in the white matter that may be related to posterior reversible encephalopathy syndrome. Recommend correlation with patient's history and follow-up MRI with and without contrast could better evaluate as other underlying lesions are not excluded on this exam. Thoracentesis Ultrasound 06/22/18 08:46 IMPRESSION: SUCCESSFUL THORACENTESIS USING ULTRASOUND GUIDANCE. Chest X-Ray 06/24/18 06:00 IMPRESSION: Bilateral pneumonia. No significant change. Assessment & Plan - Diagnosis (1) Acute respiratory failure with hypoxemia Is this a current diagnosis for this admission?: Yes (2) Bilateral pleural effusion Is this a current diagnosis for this admission?: Yes (3) CHF (congestive heart failure) Qualifiers: Heart failure type: unspecified Heart failure chronicity: unspecified Qualified Code(s): I50.9 - Heart failure, unspecified Is this a current diagnosis for this admission?: Yes (4) COPD (chronic obstructive pulmonary disease) Qualifiers: COPD type: unspecified COPD Qualified Code(s): J44.9 - Chronic obstructive pulmonary disease, unspecified Is this a current diagnosis for this admission?: Yes (5) Electrolyte imbalance Is this a current diagnosis for this admission?: Yes (6) GERD (gastroesophageal reflux disease) Qualifiers: Esophagitis presence: esophagitis presence not specified Qualified Code(s) : K21.9 - Gastro-esophageal reflux disease without esophagitis Is this a current diagnosis for this admission?: Yes (7) Hypotension Qualifiers: Hypotension type: unspecified hypotension type Qualified Code(s): I95.9 - Hypotension, unspecified Is this a current diagnosis for this admission?: Yes (8) Pneumonia Qualifiers: Pneumonia type: due to methicillin-resistant Staphylococcus aureus (MRSA) Laterality: bilateral Lung location: unspecified part of lung Qualified Code (s): J15.212 - Pneumonia due to Methicillin resistant Staphylococcus aureus Is this a current diagnosis for this admission?: Yes (9) Sepsis Qualifiers: Sepsis type: sepsis due to unspecified organism Qualified Code(s): A41.9 - Sepsis, unspecified organism Is this a current diagnosis for this admission?: Yes - Time Time Spent with patient: 15-24 minutes Medications reviewed and adjusted accordingly: Yes Anticipated discharge: Home Within: Other - Inpatient Certification Medical Necessity: Need Close Monitoring Due to Risk of Patient Decompensation, Need for IV Antibiotics Post Hospital Care: D/C Parachute Marker Documentation - Plan Summary Plan Summary: Start the patient's physical therapy
[2018-06-24] MEDS: NORMAL SALINE 1000 ML 1,000 ML IV PRN (13:48)
[2018-06-24] MEDS: ACETAMINOPHEN 325 MG TABLET PO PRN (14:51)
--- NOTE | 2018-06-24 16:44 | PDOC PROGRESS REPORT ---
Subjective Progress Note for:: 06/22/18 Subjective:: Awake Reason For Visit: ADMIT TO ICU FOR PNA AND SEPSIS Physical Exam Vital Signs: Temp Pulse Resp BP Pulse Ox 98.2 F 54 L 19 154/53 H 100 06/22/18 07:06 06/22/18 08:12 06/22/18 07:06 06/22/18 07:06 06/22/18 07:06 Intake & Output 06/21/18 06/22/18 06/23/18 06:59 06:59 06:59 Intake Total 1640 1246 0 Output Total 1265 1975 75 Balance 937 -729 -75 Weight 77.4 kg 73.5 kg General appearance: PRESENT: no acute distress, cooperative, disheveled, severe distress Head exam: PRESENT: atraumatic, normocephalic Eye exam: PRESENT: conjunctiva pale, EOMI. ABSENT: nystagmus, periorbital swelling Mouth exam: PRESENT: moist, neck supple, tongue midline Neck exam: ABSENT: carotid bruit, JVD, lymphadenopathy, thyromegaly, tracheal deviation, tracheostomy Respiratory exam: PRESENT: decreased breath sounds, prolonged expiratory phas, rales, rhonchi, unlabored. ABSENT: retraction, stridor Cardiovascular exam: PRESENT: RRR, +S1, +S2 Pulses: PRESENT: normal radial pulses GI/Abdominal exam: PRESENT: normal bowel sounds, soft. ABSENT: tenderness Gentrourinary exam: PRESENT: indwelling catheter Extremities exam: PRESENT: pedal edema. ABSENT: calf tenderness, clubbing, joint swelling Musculoskeletal exam: ABSENT: ambulatory, deformity, dislocation Neurological exam: PRESENT: awake Psychiatric exam: PRESENT: flat affect Skin exam: PRESENT: dry, warm Results Laboratory Results: 06/22/18 05:15 06/22/18 05:15 06/22/18 06/22/18 06/22/18 05:15 05:15 05:15 WBC 5.6 RBC 4.54 Hgb 11.3 L Hct 35.4 L MCV 78 L MCH 25.0 L MCHC 32.1 RDW 21.9 H Plt Count 295 Seg Neutrophils % 50.7 Lymphocytes % 28.7 Monocytes % 12.6 Eosinophils % 6.9 H Basophils % 1.1 Absolute Neutrophils 2.8 Absolute Lymphocytes 1.6 Absolute Monocytes 0.7 Absolute Eosinophils 0.4 Absolute Basophils 0.1 Carbonic Acid 1.18 HCO3/H2CO3 Ratio 21:1 ABG pH 7.43 ABG pCO2 39.3 ABG pO2 73.0 L ABG HCO3 25.3 ABG O2 Saturation 95.1 ABG Base Excess 0.9 FiO2 30% Sodium 140.6 Potassium 3.8 Chloride 106 Carbon Dioxide 26 Anion Gap 9 BUN 3 L Creatinine 0.47 L Est GFR ( Amer) > 60 Est GFR (Non-Af Amer) > 60 Glucose 102 Calcium 7.9 L Magnesium 1.7 Impressions: Chest Ultrasound 06/03/18 11:30 IMPRESSION: MODERATE BILATERAL PLEURAL EFFUSIONS. KUB X-Ray 06/11/18 00:00 IMPRESSION: NO RADIOGRAPHIC EVIDENCE FOR ACUTE ABDOMINAL DISEASE. Head CT 06/14/18 00:00 IMPRESSION: Bilateral low-density areas in the white matter that may be related to posterior reversible encephalopathy syndrome. Recommend correlation with patient's history and follow-up MRI with and without contrast could better evaluate as other underlying lesions are not excluded on this exam. Chest X-Ray 06/22/18 06:00 IMPRESSION: No significant change. Assessment & Plan - Diagnosis (1) Acute respiratory failure with hypoxemia Is this a current diagnosis for this admission?: Yes Plan: stable (2) Atrial fibrillation with rapid ventricular response Is this a current diagnosis for this admission?: Yes Plan: Cardizem plus digoxin (3) CHF (congestive heart failure) Qualifiers: Heart failure type: unspecified Heart failure chronicity: unspecified Qualified Code(s): I50.9 - Heart failure, unspecified Is this a current diagnosis for this admission?: Yes (4) COPD (chronic obstructive pulmonary disease) Qualifiers: COPD type: unspecified COPD Qualified Code(s): J44.9 - Chronic obstructive pulmonary disease, unspecified Is this a current diagnosis for this admission?: Yes Plan: Continue current bronchodilator therapy (5) GERD (gastroesophageal reflux disease) Qualifiers: Esophagitis presence: esophagitis presence not specified Qualified Code(s) : K21.9 - Gastro-esophageal reflux disease without esophagitis Is this a current diagnosis for this admission?: Yes Plan: Continue PPI (6) Sepsis Qualifiers: Sepsis type: sepsis due to unspecified organism Qualified Code(s): A41.9 - Sepsis, unspecified organism Is this a current diagnosis for this admission?: No
--- NOTE | 2018-06-24 16:46 | PDOC PROGRESS REPORT ---
Subjective Progress Note for:: 06/23/18 Subjective:: Awake Reason For Visit: ADMIT TO ICU FOR PNA AND SEPSIS Physical Exam Vital Signs: Temp Pulse Resp BP Pulse Ox 98.4 F 79 27 H 172/62 H 98 06/23/18 08:00 06/23/18 08:05 06/23/18 08:00 06/23/18 08:05 06/23/18 08:00 Intake & Output 06/22/18 06/23/18 06/24/18 06:59 06:59 06:59 Intake Total 1246 1638 Output Total 1974 1870 Balance -729 -232 Weight 73.5 kg 71.4 kg General appearance: PRESENT: no acute distress, cooperative, disheveled, obese Head exam: PRESENT: atraumatic, normocephalic Eye exam: PRESENT: conjunctiva pale, EOMI. ABSENT: nystagmus, periorbital swelling, scleral icterus Mouth exam: PRESENT: moist, neck supple, tongue midline Neck exam: ABSENT: carotid bruit, JVD, lymphadenopathy, thyromegaly, tracheal deviation, tracheostomy Respiratory exam: PRESENT: decreased breath sounds, prolonged expiratory phas, rales, rhonchi, unlabored. ABSENT: retraction, stridor Cardiovascular exam: PRESENT: RRR, +S1, +S2 Pulses: PRESENT: normal radial pulses GI/Abdominal exam: PRESENT: normal bowel sounds, soft. ABSENT: tenderness Gentrourinary exam: PRESENT: indwelling catheter Extremities exam: PRESENT: pedal edema. ABSENT: calf tenderness, clubbing, joint swelling Musculoskeletal exam: ABSENT: deformity, dislocation Neurological exam: PRESENT: awake Psychiatric exam: PRESENT: flat affect Skin exam: PRESENT: dry, warm Results Laboratory Results: 06/23/18 07:10 06/23/18 07:10 06/22/18 06/22/18 06/23/18 05:15 11:30 07:10 WBC RBC Hgb Hct MCV MCH MCHC RDW Plt Count Seg Neutrophils % Lymphocytes % Monocytes % Eosinophils % Basophils % Absolute Neutrophils Absolute Lymphocytes Absolute Monocytes Absolute Eosinophils Absolute Basophils Carbonic Acid HCO3/H2CO3 Ratio ABG pH ABG pCO2 ABG pO2 ABG HCO3 ABG O2 Saturation ABG Base Excess FiO2 Sodium 140.1 Potassium 3.3 L Chloride 104 Carbon Dioxide 26 Anion Gap 10 BUN 3 L Creatinine 0.47 L Est GFR ( Amer) > 60 Est GFR (Non-Af Amer) > 60 Glucose 114 H Calcium 7.8 L Magnesium 1.5 L Total Protein 5.2 L Fluid Type PLEURAL Fluid Source LUNG Fluid Color LIGHT YELLOW Fluid Appearance CLEAR Fluid Viscosity LIQUID Fluid WBC 229 Fluid RBC 735 06/23/18 06/23/18 07:10 07:25 WBC 5.9 RBC 4.66 Hgb 11.6 L Hct 36.3 MCV 78 L MCH 24.8 L MCHC 31.8 L RDW 21.8 H Plt Count 285 Seg Neutrophils % 57.5 Lymphocytes % 22.9 Monocytes % 13.5 H Eosinophils % 5.2 Basophils % 0.9 Absolute Neutrophils 3.4 Absolute Lymphocytes 1.3 Absolute Monocytes 0.8 Absolute Eosinophils 0.3 Absolute Basophils 0.1 Carbonic Acid 1.32 HCO3/H2CO3 Ratio 19:1 ABG pH 7.38 ABG pCO2 44.0 ABG pO2 72.7 L ABG HCO3 25.6 ABG O2 Saturation 94.4 ABG Base Excess 0.3 FiO2 2L Sodium Potassium Chloride Carbon Dioxide Anion Gap BUN Creatinine Est GFR ( Amer) Est GFR (Non-Af Amer) Glucose Calcium Magnesium Total Protein Fluid Type Fluid Source Fluid Color Fluid Appearance Fluid Viscosity Fluid WBC Fluid RBC Impressions: Chest Ultrasound 06/03/18 11:30 IMPRESSION: MODERATE BILATERAL PLEURAL EFFUSIONS. KUB X-Ray 06/11/18 00:00 IMPRESSION: NO RADIOGRAPHIC EVIDENCE FOR ACUTE ABDOMINAL DISEASE. Head CT 06/14/18 00:00 IMPRESSION: Bilateral low-density areas in the white matter that may be related to posterior reversible encephalopathy syndrome. Recommend correlation with patient's history and follow-up MRI with and without contrast could better evaluate as other underlying lesions are not excluded on this exam. Thoracentesis Ultrasound 06/22/18 08:46 IMPRESSION: SUCCESSFUL THORACENTESIS USING ULTRASOUND GUIDANCE. Chest X-Ray 06/23/18 06:00 IMPRESSION: Bilateral pneumonia. No significant change. Assessment & Plan - Diagnosis (1) Acute respiratory failure with hypoxemia Is this a current diagnosis for this admission?: Yes Plan: stable (2) Atrial fibrillation with rapid ventricular response Is this a current diagnosis for this admission?: Yes Plan: stable (3) CHF (congestive heart failure) Qualifiers: Heart failure type: unspecified Heart failure chronicity: unspecified Qualified Code(s): I50.9 - Heart failure, unspecified Is this a current diagnosis for this admission?: Yes (4) COPD (chronic obstructive pulmonary disease) Qualifiers: COPD type: unspecified COPD Qualified Code(s): J44.9 - Chronic obstructive pulmonary disease, unspecified Is this a current diagnosis for this admission?: Yes (5) GERD (gastroesophageal reflux disease) Qualifiers: Esophagitis presence: esophagitis presence not specified Qualified Code(s) : K21.9 - Gastro-esophageal reflux disease without esophagitis Is this a current diagnosis for this admission?: Yes Plan: Continue PPI (6) Sepsis Qualifiers: Sepsis type: sepsis due to unspecified organism Qualified Code(s): A41.9 - Sepsis, unspecified organism Is this a current diagnosis for this admission?: No
--- NOTE | 2018-06-24 16:48 | PDOC PROGRESS REPORT ---
Subjective Progress Note for:: 06/24/18 Subjective:: Awake Reason For Visit: ADMIT TO ICU FOR PNA AND SEPSIS Physical Exam Vital Signs: Temp Pulse Resp BP Pulse Ox 97.8 F 84 27 H 164/63 H 100 06/24/18 07:51 06/24/18 14:04 06/24/18 16:24 06/24/18 07:51 06/24/18 07:51 Intake & Output 06/23/18 06/24/18 06/25/18 06:59 06:59 06:59 Intake Total 1688 3310 50 Output Total 1870 3435 200 Balance -182 -125 -150 Weight 71.4 kg 76.9 kg General appearance: PRESENT: no acute distress, cooperative, disheveled, obese Head exam: PRESENT: atraumatic, normocephalic Eye exam: PRESENT: conjunctiva pale, EOMI. ABSENT: nystagmus, periorbital swelling, scleral icterus Mouth exam: PRESENT: moist, neck supple, tongue midline Neck exam: ABSENT: carotid bruit, JVD, lymphadenopathy, thyromegaly, tracheal deviation, tracheostomy Respiratory exam: PRESENT: decreased breath sounds, prolonged expiratory phas, rales, rhonchi, unlabored. ABSENT: retraction, stridor Cardiovascular exam: PRESENT: irregular rhythm, +S1, +S2 Pulses: PRESENT: normal radial pulses GI/Abdominal exam: PRESENT: normal bowel sounds, soft. ABSENT: tenderness Gentrourinary exam: PRESENT: indwelling catheter Extremities exam: PRESENT: pedal edema. ABSENT: calf tenderness, clubbing, joint swelling Musculoskeletal exam: ABSENT: ambulatory, deformity, dislocation Neurological exam: PRESENT: awake Psychiatric exam: PRESENT: flat affect Skin exam: PRESENT: dry, intact, warm. ABSENT: cyanosis, rash Results Laboratory Results: 06/24/18 05:30 06/24/18 05:30 06/22/18 06/24/18 06/24/18 11:30 05:30 05:30 WBC 5.5 RBC 4.39 Hgb 11.1 L Hct 34.6 L MCV 79 L MCH 25.4 L MCHC 32.2 RDW 21.8 H Plt Count 278 Seg Neutrophils % 50.9 Lymphocytes % 27.6 Monocytes % 14.5 H Eosinophils % 5.8 Basophils % 1.2 Absolute Neutrophils 2.8 Absolute Lymphocytes 1.5 Absolute Monocytes 0.8 Absolute Eosinophils 0.3 Absolute Basophils 0.1 Carbonic Acid HCO3/H2CO3 Ratio ABG pH ABG pCO2 ABG pO2 ABG HCO3 ABG O2 Saturation ABG Base Excess FiO2 Sodium 138.9 Potassium 3.7 Chloride 104 Carbon Dioxide 27 Anion Gap 8 BUN 3 L Creatinine 0.41 L Est GFR ( Amer) > 60 Est GFR (Non-Af Amer) > 60 Glucose 101 Calcium 7.8 L Magnesium 2.0 Fluid Glucose 112 Fluid Total Protein 1.9 Fluid LDH 88 06/24/18 06:30 WBC RBC Hgb Hct MCV MCH MCHC RDW Plt Count Seg Neutrophils % Lymphocytes % Monocytes % Eosinophils % Basophils % Absolute Neutrophils Absolute Lymphocytes Absolute Monocytes Absolute Eosinophils Absolute Basophils Carbonic Acid 1.47 H HCO3/H2CO3 Ratio 18:1 ABG pH 7.37 ABG pCO2 48.8 H ABG pO2 83.7 ABG HCO3 27.7 H ABG O2 Saturation 95.9 ABG Base Excess 1.8 FiO2 36% Sodium Potassium Chloride Carbon Dioxide Anion Gap BUN Creatinine Est GFR ( Amer) Est GFR (Non-Af Amer) Glucose Calcium Magnesium Fluid Glucose Fluid Total Protein Fluid LDH Impressions: Chest Ultrasound 06/03/18 11:30 IMPRESSION: MODERATE BILATERAL PLEURAL EFFUSIONS. KUB X-Ray 06/11/18 00:00 IMPRESSION: NO RADIOGRAPHIC EVIDENCE FOR ACUTE ABDOMINAL DISEASE. Head CT 06/14/18 00:00 IMPRESSION: Bilateral low-density areas in the white matter that may be related to posterior reversible encephalopathy syndrome. Recommend correlation with patient's history and follow-up MRI with and without contrast could better evaluate as other underlying lesions are not excluded on this exam. Thoracentesis Ultrasound 06/22/18 08:46 IMPRESSION: SUCCESSFUL THORACENTESIS USING ULTRASOUND GUIDANCE. Chest X-Ray 06/24/18 06:00 IMPRESSION: Bilateral pneumonia. No significant change. Assessment & Plan - Diagnosis (1) Acute respiratory failure with hypoxemia Is this a current diagnosis for this admission?: No (2) Atrial fibrillation with rapid ventricular response Is this a current diagnosis for this admission?: Yes Plan: stable (3) CHF (congestive heart failure) Qualifiers: Heart failure type: unspecified Heart failure chronicity: unspecified Qualified Code(s): I50.9 - Heart failure, unspecified Is this a current diagnosis for this admission?: Yes (4) COPD (chronic obstructive pulmonary disease) Qualifiers: COPD type: unspecified COPD Qualified Code(s): J44.9 - Chronic obstructive pulmonary disease, unspecified Is this a current diagnosis for this admission?: Yes Plan: Continue current bronchodilator therapy (5) GERD (gastroesophageal reflux disease) Qualifiers: Esophagitis presence: esophagitis presence not specified Qualified Code(s) : K21.9 - Gastro-esophageal reflux disease without esophagitis Is this a current diagnosis for this admission?: Yes Plan: Continue PPI (6) Sepsis Qualifiers: Sepsis type: sepsis due to unspecified organism Qualified Code(s): A41.9 - Sepsis, unspecified organism Is this a current diagnosis for this admission?: No
[2018-06-25] MEDS: IPRATROPIUM/ALBUTEROL 0.5-2.5 MG/3 ML AMPUL NEB SCH ×4 (02:52→20:06)
[2018-06-25] MEDS: CLINDAMYCIN 600 MG/D5W RTU 600 MG/50 ML RTUPB IV SCH ×3 (03:01→20:23)
[2018-06-25] MEDS: LANSOPRAZOLE 30 MG TAB.RAP.DR PO SCH (05:12)
[2018-06-25] MEDS: GABAPENTIN 400 MG CAPSULE PO SCH ×3 (05:12→21:17)
[2018-06-25] MEDS: PHENYTOIN SODIUM INJ/PF 100 MG/2 ML SDV IV SCH ×3 (05:12→21:16)
[2018-06-25 06:05] LABS: ANION GAP 8 (5-19); BLOOD UREA NITROGEN 2 mg/dL (7-20); CALCIUM 7.7 mg/dL (8.4-10.2); CARBON DIOXIDE 29 mmol/L (22-30); CHLORIDE 103 mmol/L (98-107); GLUCOSE 115 mg/dL (75-110); POTASSIUM 3.2 mmol/L (3.6-5.0); SODIUM 139.6 mmol/L (137-145)
--- NOTE | 2018-06-25 08:34 | PDOC PROGRESS REPORT ---
Subjective Progress Note for:: 06/25/18 Subjective:: Nursing staff reported some desaturation with turning in bed. Currently on BiPAP support. Denied any chest pain or palpitation. No nausea, vomiting or abdominal pain. No fever or chills. Reason For Visit: ADMIT TO ICU FOR PNA AND SEPSIS Physical Exam Vital Signs: Temp Pulse Resp BP Pulse Ox 97.3 F 76 22 H 114/88 H 97 06/25/18 07:50 06/25/18 07:50 06/25/18 07:50 06/25/18 07:50 06/25/18 07:50 Intake & Output 06/24/18 06/25/18 06/26/18 06:59 06:59 06:59 Intake Total 3310 607 Output Total 3435 1800 Balance -125 -1193 Weight 76.9 kg 76.1 kg Physical Exam: Head exam: PRESENT: atraumatic, normocephalic Eye exam: PRESENT: conjunctiva pink, PERRLA Ear exam: PRESENT: normal external ear exam Mouth exam: PRESENT: Fairly moist. Respiratory exam: PRESENT: clear to auscultation cas, decreased breath sounds - at lung bases, Currently on BiPAP support. Cardiovascular exam: PRESENT: Irregularly Irregular rhythm. ABSENT: diastolic murmur, rubs, systolic murmur. director of health care marketing revealed A.Fib rhythm with controlled rate. Vascular exam: PRESENT: normal capillary refill. ABSENT: pallor GI/Abdominal exam: PRESENT: normal bowel sounds, soft. ABSENT: distended, guarding, mass, organomegaly, rebound, tenderness Extremities exam: ABSENT: pedal edema Musculoskeletal exam: PRESENT: normal inspection Neurological exam: PRESENT: altered - sedated Psychiatric exam: PRESENT: other - limited due to current state of sedation Skin exam: PRESENT: dry, warm Results Laboratory Results: 06/24/18 05:30 06/25/18 05:13 06/25/18 05:13 Sodium 139.6 Potassium 3.2 L Chloride 103 Carbon Dioxide 29 Anion Gap 8 BUN 2 L Creatinine 0.43 L Est GFR ( Amer) > 60 Est GFR (Non-Af Amer) > 60 Glucose 115 H Calcium 7.7 L 06/22/18 11:30 Pleural Fluid - Right Pleural Effusion AFB Smear Concentration - Final 06/22/18 11:30 Pleural Fluid - Right Pleural Effusion Acid Fast Bacilli Smear - Final Impressions: Chest Ultrasound 06/03/18 11:30 IMPRESSION: MODERATE BILATERAL PLEURAL EFFUSIONS. KUB X-Ray 06/11/18 00:00 IMPRESSION: NO RADIOGRAPHIC EVIDENCE FOR ACUTE ABDOMINAL DISEASE. Head CT 06/14/18 00:00 IMPRESSION: Bilateral low-density areas in the white matter that may be related to posterior reversible encephalopathy syndrome. Recommend correlation with patient's history and follow-up MRI with and without contrast could better evaluate as other underlying lesions are not excluded on this exam. Thoracentesis Ultrasound 06/22/18 08:46 IMPRESSION: SUCCESSFUL THORACENTESIS USING ULTRASOUND GUIDANCE. Chest X-Ray 06/24/18 06:00 IMPRESSION: Bilateral pneumonia. No significant change. Assessment & Plan - Diagnosis (1) SIRS with acute organ dysfunction due to infectious process Is this a current diagnosis for this admission?: Yes (2) Lobar pneumonia, unspecified organism Is this a current diagnosis for this admission?: Yes (3) Grecia infection, disseminated Is this a current diagnosis for this admission?: Yes (4) Anemia due to infection Is this a current diagnosis for this admission?: Yes (5) Decompensated COPD with exacerbation (chronic obstructive pulmonary disease) Is this a current diagnosis for this admission?: Yes (6) Chronic atrial fibrillation Is this a current diagnosis for this admission?: Yes (7) HTN (hypertension) Qualifiers: Hypertension type: essential hypertension Qualified Code(s): I10 - Essential (primary) hypertension Is this a current diagnosis for this admission?: Yes (8) HLD (hyperlipidemia) Qualifiers: Hyperlipidemia type: pure hypercholesterolemia Qualified Code(s): E78.00 - Pure hypercholesterolemia, unspecified Is this a current diagnosis for this admission?: Yes (9) GERD (gastroesophageal reflux disease) Qualifiers: Esophagitis presence: esophagitis presence not specified Qualified Code(s) : K21.9 - Gastro-esophageal reflux disease without esophagitis Is this a current diagnosis for this admission?: Yes (10) Anxiety Is this a current diagnosis for this admission?: Yes (11) Depression Qualifiers: Depression Type: major depressive disorder Major depression recurrence: recurrent Active/Remission status: currently active Psychotic features: without psychotic features Is this a current diagnosis for this admission?: Yes (12) Acute delirium Is this a current diagnosis for this admission?: Yes (13) Electrolyte imbalance Is this a current diagnosis for this admission?: Yes (14) Tonic-clonic seizure disorder Is this a current diagnosis for this admission?: Yes (15) Bilateral pleural effusion Is this a current diagnosis for this admission?: Yes - Time Time Spent with patient: 25-34 minutes Medications reviewed and adjusted accordingly: Yes Anticipated discharge: Home with Homehealth, SNF Within: Other - Inpatient Certification Based on my medical assessment, after consideration of the patient's comorbidities, presenting symptoms, or acuity I expect that the services needed warrant INPATIENT care.: Yes I certify that my determination is in accordance with my understanding of Medicare's requirements for reasonable and necessary INPATIENT services [42 CFR 412.3e].: Yes Medical Necessity: Need Close Monitoring Due to Risk of Patient Decompensation, Need For IV Fluids, Need For Continuous Telemetry Monitoring, Need for IV Antibiotics, Risk of Complication if Not Cared For in Hospital Post Hospital Care: D/C or Transfer Summary - Plan Summary Plan Summary: Obtain physical therapy evaluation. Continue IV Clindamycin coverage. Potassium replacement in progress. Maintain on all other current medication management
[2018-06-25] MEDS: DOCUSATE SODIUM 100 MG CAPSULE PO SCH ×2 (10:19→20:24)
[2018-06-25] MEDS: MULTIVIT-STRESS FORMULA/ZINC TABLET PO SCH (10:25)
[2018-06-25] MEDS: POTASSIUM CHLORIDE 10 MEQ CAPSULE.ER PO SCH ×2 (10:25→15:27)
[2018-06-25] MEDS: APIXABAN 5 MG TABLET NG SCH ×2 (10:25→20:23)
[2018-06-25] MEDS: PREDNISONE 5 MG TABLET PO SCH (10:26)
[2018-06-25] MEDS: DIGOXIN 0.25 MG TABLET PO SCH (10:26)
[2018-06-25] MEDS: VALSARTAN 160 MG TABLET PO SCH (10:26)
[2018-06-25] MEDS: AMLODIPINE BESYLATE 5 MG TABLET PO SCH (10:26)
[2018-06-25] MEDS: HALOPERIDOL 0.5 MG TABLET PO SCH ×2 (10:29→21:17)
--- NOTE | 2018-06-25 16:24 | PDOC PROGRESS REPORT ---
Subjective Progress Note for:: 06/25/18 Subjective:: Awake Reason For Visit: ADMIT TO ICU FOR PNA AND SEPSIS Physical Exam Vital Signs: Temp Pulse Resp BP Pulse Ox 97.3 F 72 20 114/88 H 96 06/25/18 07:50 06/25/18 14:16 06/25/18 14:16 06/25/18 07:50 06/25/18 14:16 Intake & Output 06/24/18 06/25/18 06/26/18 06:59 06:59 06:59 Intake Total 3310 607 352 Output Total 3435 1800 500 Balance -125 -1193 -148 Weight 76.9 kg 76.1 kg General appearance: PRESENT: no acute distress, cooperative, disheveled, obese Head exam: PRESENT: atraumatic, normocephalic Eye exam: PRESENT: conjunctiva pale, EOMI. ABSENT: nystagmus, periorbital swelling, scleral icterus Mouth exam: PRESENT: moist, neck supple, tongue midline Neck exam: ABSENT: carotid bruit, JVD, lymphadenopathy, thyromegaly, tracheal deviation, tracheostomy Respiratory exam: PRESENT: decreased breath sounds, prolonged expiratory phas, rales, rhonchi, unlabored. ABSENT: retraction, stridor, tachypnea Cardiovascular exam: PRESENT: RRR, +S1, +S2. ABSENT: tachycardia Pulses: PRESENT: normal radial pulses GI/Abdominal exam: PRESENT: normal bowel sounds, soft. ABSENT: tenderness Gentrourinary exam: PRESENT: indwelling catheter Extremities exam: PRESENT: pedal edema. ABSENT: clubbing, joint swelling Musculoskeletal exam: ABSENT: deformity, dislocation Neurological exam: PRESENT: awake Skin exam: PRESENT: dry, warm Results Laboratory Results: 06/24/18 05:30 06/25/18 05:13 06/25/18 06/25/18 05:13 05:13 Sodium 139.6 Potassium 3.2 L Chloride 103 Carbon Dioxide 29 Anion Gap 8 BUN 2 L Creatinine 0.43 L Est GFR ( Amer) > 60 Est GFR (Non-Af Amer) > 60 Glucose 115 H Calcium 7.7 L Magnesium 1.8 06/22/18 11:30 Pleural Fluid - Right Pleural Effusion Fungal Smear - Final 06/22/18 11:30 Pleural Fluid - Right Pleural Effusion Fungal Smear - Final 06/22/18 11:30 Pleural Fluid - Right Pleural Effusion AFB Smear Concentration - Final 06/22/18 11:30 Pleural Fluid - Right Pleural Effusion Acid Fast Bacilli Smear - Final Impressions: Chest Ultrasound 06/03/18 11:30 IMPRESSION: MODERATE BILATERAL PLEURAL EFFUSIONS. KUB X-Ray 06/11/18 00:00 IMPRESSION: NO RADIOGRAPHIC EVIDENCE FOR ACUTE ABDOMINAL DISEASE. Head CT 06/14/18 00:00 IMPRESSION: Bilateral low-density areas in the white matter that may be related to posterior reversible encephalopathy syndrome. Recommend correlation with patient's history and follow-up MRI with and without contrast could better evaluate as other underlying lesions are not excluded on this exam. Thoracentesis Ultrasound 06/22/18 08:46 IMPRESSION: SUCCESSFUL THORACENTESIS USING ULTRASOUND GUIDANCE. Chest X-Ray 06/24/18 06:00 IMPRESSION: Bilateral pneumonia. No significant change. Assessment & Plan - Diagnosis (1) Acute respiratory failure with hypoxemia Is this a current diagnosis for this admission?: No (2) Atrial fibrillation with rapid ventricular response Is this a current diagnosis for this admission?: Yes Plan: stable (3) CHF (congestive heart failure) Qualifiers: Heart failure type: unspecified Heart failure chronicity: unspecified Qualified Code(s): I50.9 - Heart failure, unspecified Is this a current diagnosis for this admission?: Yes (4) COPD (chronic obstructive pulmonary disease) Qualifiers: COPD type: unspecified COPD Qualified Code(s): J44.9 - Chronic obstructive pulmonary disease, unspecified Is this a current diagnosis for this admission?: Yes Plan: Continue current bronchodilator therapy retains pco2 will need bipap .35 I=20 E=6 RR=12 (5) GERD (gastroesophageal reflux disease) Qualifiers: Esophagitis presence: esophagitis presence not specified Qualified Code(s) : K21.9 - Gastro-esophageal reflux disease without esophagitis Is this a current diagnosis for this admission?: Yes Plan: Continue PPI (6) Sepsis Qualifiers: Sepsis type: sepsis due to unspecified organism Qualified Code(s): A41.9 - Sepsis, unspecified organism Is this a current diagnosis for this admission?: No
[2018-06-25] MEDS: ACETAMINOPHEN 325 MG TABLET PO PRN (21:29)
[2018-06-26] MEDS: CLINDAMYCIN 600 MG/D5W RTU 600 MG/50 ML RTUPB IV SCH (01:52)
[2018-06-26] MEDS: NORMAL SALINE 1000 ML 1,000 ML IV PRN ×2 (01:53→22:54)
[2018-06-26] MEDS: IPRATROPIUM/ALBUTEROL 0.5-2.5 MG/3 ML AMPUL NEB SCH ×4 (02:04→20:39)
[2018-06-26] MEDS: LANSOPRAZOLE 30 MG TAB.RAP.DR PO SCH (06:02)
[2018-06-26] MEDS: GABAPENTIN 400 MG CAPSULE PO SCH ×3 (06:02→22:37)
[2018-06-26] MEDS: PHENYTOIN SODIUM INJ/PF 100 MG/2 ML SDV IV SCH ×3 (06:02→22:37)
[2018-06-26 06:57] LABS: ANION GAP 6 (5-19); BLOOD UREA NITROGEN 2 mg/dL (7-20); CALCIUM 7.8 mg/dL (8.4-10.2); CARBON DIOXIDE 30 mmol/L (22-30); CHLORIDE 103 mmol/L (98-107); GLUCOSE 104 mg/dL (75-110); POTASSIUM 4.2 mmol/L (3.6-5.0); SODIUM 139.3 mmol/L (137-145)
[2018-06-26] MEDS: ACETAMINOPHEN 325 MG TABLET PO PRN ×2 (09:40→22:48)
[2018-06-26] MEDS: AMLODIPINE BESYLATE 5 MG TABLET PO SCH (09:41)
[2018-06-26] MEDS: DOCUSATE SODIUM 100 MG CAPSULE PO SCH ×2 (09:41→18:14)
[2018-06-26] MEDS: VALSARTAN 160 MG TABLET PO SCH (09:41)
[2018-06-26] MEDS: APIXABAN 5 MG TABLET NG SCH ×2 (09:41→18:14)
[2018-06-26] MEDS: DIGOXIN 0.25 MG TABLET PO SCH (09:41)
[2018-06-26] MEDS: MULTIVIT-STRESS FORMULA/ZINC TABLET PO SCH (09:41)
[2018-06-26] MEDS: PREDNISONE 5 MG TABLET PO SCH (09:41)
[2018-06-26] MEDS: HALOPERIDOL 0.5 MG TABLET PO SCH ×2 (09:50→22:38)
[2018-06-26] MEDS ORDERED: CLONAZEPAM 1 MG TABLET PO ONE (10:00)
--- NOTE | 2018-06-26 17:34 | RADIOLOGY REPORT (SQ) ---
EXAM DESCRIPTION: CTA CHEST COMPLETED DATE/TIME: 06/26/2018 5:13 pm REASON FOR STUDY: respiratory decompensation COMPARISON: CT angio chest 11/16/2014, 10/14/2014, 03/12/2008 TECHNIQUE: CT scan of the chest performed using helical scanning technique with dynamic intravenous contrast injection. Images reviewed with lung, soft tissue and bone windows. Reconstructed coronal and sagittal MPR images reviewed. Additional 3 dimensional post-processing performed to develop Maximal Intensity Projection images (PR P). All images stored on PACS. All CT scanners at this facility use dose modulation, iterative reconstruction, and/or weight based d osing when appropriate to reduce radiation dose to as low as reasonably achievable (ALARA). [facility]: Dose Right [facility]: CareDose [facility]: Dose Right [facility]: Teradose 4D [facility]: Shake CONTRAST TYPE AND DOSE: contrast/concentration: Isovue 350.00 mg/ml; Total Contrast Delivered: 68.0 ml; Total Saline Delivered: 67.0 ml Contrast bolus optimized for the pulmonary arteries and the thoracic aorta. RENAL FUNCTION: Creatinine 0.4 RADIATION DOSE: CT Rad equipment meets quality standard of care and radiation dose reduction techniq ues were employed. CTDIvol: 14.9 - 21.8 mGy. DLP: 824 mGy-cm. . LIMITATIONS: None. FINDINGS: LUNGS AND PLEURA: Large bilateral pleural effusions are present There is consolidation in the posterior aspect right upper lobe, atelectasis versus pneumonia. Minim al consolidation the dependent portion of both lung bases likely atelectasis. No pneumothorax AORTA AND GREAT VESSELS: No thoracic aortic dissection or thoracic aortic. HEART: No pericardial effusion. Calcified aortic valve. Heavily calcified mitral annulus and left co ronary artery PULMONARY ARTERIES: No emboli visualized in the main pulmonary arteries or the segmental branches. HILAR AND MEDIASTINAL STRUCTURES: There is mild mediastinal adenopathy with enlarged pretracheal and prevascular lymph nodes, nonspecific HARDWARE: Right jugular central line tip superior vena cava. UPPER ABDOMEN: 3 cm right midpole renal cortical cyst. Post cholecystectomy. Chest and abdominal wa ll anasarca with edema in the soft tissues THYROID AND OTHER SOFT TISSUES: No masses. No adenopathy. BONES: There are bilateral acute anterior 2nd through 5th rib fractures. Acute left anterior 6th rib fracture. Question prior chest compressions and resuscitation. Multiple old posterior bilateral ri b fractures are present. Multiple thoracic compression deformities are present in the vertebral bodi es, stable compared to prior exams. 3D MIPS: Confirm above findings. OTHER: No other significant finding. IMPRESSION: Large bilateral pleural effusions with bilateral airspace disease in the lower lobes lik danny atelectasis Multiple acute anterior bilateral rib fractures likely post resuscitation with chest compressions COMMENT: Quality ID # [id number]: Final reports with documentation of one or more dose reduction techniques (e.g., Automated exposure control, adjustment of the mA and/or kV according to patient size, use of iterative reconstruction technique) TECHNICAL DOCUMENTATION: JOB ID: [id number] [employer]- All Rights Reserved Reading location - IP/workstation name: [email or web address]
--- NOTE | 2018-06-26 17:52 | PDOC PROGRESS REPORT ---
Subjective Progress Note for:: 06/26/18 Subjective:: Patient continue to demonstrate dependency on BiPAP support with significant desaturation of the device. Denied any chest pain or palpitation. No nausea, vomiting or abdominal pain. No fever or chills. Reason For Visit: ADMIT TO ICU FOR PNA AND SEPSIS Physical Exam Vital Signs: Temp Pulse Resp BP Pulse Ox 98.4 F 75 26 H 165/84 H 99 06/26/18 07:40 06/26/18 07:40 06/26/18 07:40 06/26/18 07:40 06/26/18 07:40 Intake & Output 06/25/18 06/26/18 06/27/18 06:59 06:59 06:59 Intake Total 607 1802 Output Total 1800 1550 Balance -1193 252 Weight 76.1 kg 75 kg Physical Exam: Head exam: PRESENT: atraumatic, normocephalic Eye exam: PRESENT: conjunctiva pink, PERRLA Ear exam: PRESENT: normal external ear exam Mouth exam: PRESENT: Fairly moist. Respiratory exam: PRESENT: clear to auscultation cas, decreased breath sounds - at lung bases, Currently on BiPAP support. Cardiovascular exam: PRESENT: Irregularly Irregular rhythm. ABSENT: diastolic murmur, rubs, systolic murmur. front desk monitor revealed A.Fib rhythm with controlled rate. Vascular exam: PRESENT: normal capillary refill. ABSENT: pallor GI/Abdominal exam: PRESENT: normal bowel sounds, soft. ABSENT: distended, guarding, mass, organomegaly, rebound, tenderness Extremities exam: ABSENT: pedal edema Musculoskeletal exam: PRESENT: normal inspection Neurological exam: PRESENT: altered - sedated Psychiatric exam: PRESENT: other - limited due to current state of sedation Skin exam: PRESENT: dry, warm Results Laboratory Results: 06/24/18 05:30 06/26/18 06:00 06/25/18 06/26/18 05:13 06:00 Sodium 139.3 Potassium 4.2 Chloride 103 Carbon Dioxide 30 Anion Gap 6 BUN 2 L Creatinine 0.42 L Est GFR ( Amer) > 60 Est GFR (Non-Af Amer) > 60 Glucose 104 Calcium 7.8 L Magnesium 1.8 06/22/18 11:30 Pleural Fluid - Right Pleural Effusion Gram Stain - Final 06/22/18 11:30 Pleural Fluid - Right Pleural Effusion Body Fluid Culture - Final NO AEROBIC OR ANAEROBIC ORGANISMS RECOVERED 06/22/18 11:30 Pleural Fluid - Right Pleural Effusion Fungal Smear - Final 06/22/18 11:30 Pleural Fluid - Right Pleural Effusion Fungal Smear - Final Impressions: Chest Ultrasound 06/03/18 11:30 IMPRESSION: MODERATE BILATERAL PLEURAL EFFUSIONS. KUB X-Ray 06/11/18 00:00 IMPRESSION: NO RADIOGRAPHIC EVIDENCE FOR ACUTE ABDOMINAL DISEASE. Head CT 06/14/18 00:00 IMPRESSION: Bilateral low-density areas in the white matter that may be related to posterior reversible encephalopathy syndrome. Recommend correlation with patient's history and follow-up MRI with and without contrast could better evaluate as other underlying lesions are not excluded on this exam. Thoracentesis Ultrasound 06/22/18 08:46 IMPRESSION: SUCCESSFUL THORACENTESIS USING ULTRASOUND GUIDANCE. Chest X-Ray 06/24/18 06:00 IMPRESSION: Bilateral pneumonia. No significant change. Assessment & Plan - Diagnosis (1) SIRS with acute organ dysfunction due to infectious process Is this a current diagnosis for this admission?: Yes (2) Lobar pneumonia, unspecified organism Is this a current diagnosis for this admission?: Yes (3) Grecia infection, disseminated Is this a current diagnosis for this admission?: Yes (4) Anemia due to infection Is this a current diagnosis for this admission?: Yes (5) Decompensated COPD with exacerbation (chronic obstructive pulmonary disease) Is this a current diagnosis for this admission?: Yes (6) Chronic atrial fibrillation Is this a current diagnosis for this admission?: Yes (7) HTN (hypertension) Qualifiers: Hypertension type: essential hypertension Qualified Code(s): I10 - Essential (primary) hypertension Is this a current diagnosis for this admission?: Yes (8) HLD (hyperlipidemia) Qualifiers: Hyperlipidemia type: pure hypercholesterolemia Qualified Code(s): E78.00 - Pure hypercholesterolemia, unspecified Is this a current diagnosis for this admission?: Yes (9) GERD (gastroesophageal reflux disease) Qualifiers: Esophagitis presence: esophagitis presence not specified Qualified Code(s) : K21.9 - Gastro-esophageal reflux disease without esophagitis Is this a current diagnosis for this admission?: Yes (10) Anxiety Is this a current diagnosis for this admission?: Yes (11) Depression Qualifiers: Depression Type: major depressive disorder Major depression recurrence: recurrent Active/Remission status: currently active Psychotic features: without psychotic features Is this a current diagnosis for this admission?: Yes (12) Acute delirium Is this a current diagnosis for this admission?: Yes (13) Electrolyte imbalance Is this a current diagnosis for this admission?: Yes (14) Tonic-clonic seizure disorder Is this a current diagnosis for this admission?: Yes (15) Bilateral pleural effusion Is this a current diagnosis for this admission?: Yes - Time Time Spent with patient: 25-34 minutes Medications reviewed and adjusted accordingly: Yes Anticipated discharge: Acute Rehab Within: Other - Inpatient Certification Based on my medical assessment, after consideration of the patient's comorbidities, presenting symptoms, or acuity I expect that the services needed warrant INPATIENT care.: Yes I certify that my determination is in accordance with my understanding of Medicare's requirements for reasonable and necessary INPATIENT services [42 CFR 412.3e].: Yes Medical Necessity: Need Close Monitoring Due to Risk of Patient Decompensation, Need For IV Fluids, Need For Continuous Telemetry Monitoring, Need for Nebulizer Therapy and Monitoring of Response, Need for IV Antibiotics, Risk of Complication if Not Cared For in Hospital Post Hospital Care: D/C or Transfer Summary - Plan Summary Plan Summary: Obtain CTA chest for further evaluation of her ongoing respiratory decompensation. Start on Klonopin 0.25 mg p.o qhs with a stat dose now. Continue all other current medication management. Hold off SNF acute rehab transfer.
[2018-06-26] MEDS: CLONAZEPAM 1 MG TABLET PO SCH (22:38)
[2018-06-27] MEDS: IPRATROPIUM/ALBUTEROL 0.5-2.5 MG/3 ML AMPUL NEB SCH ×4 (02:20→20:49)
[2018-06-27] MEDS: GABAPENTIN 400 MG CAPSULE PO SCH ×3 (05:54→22:36)
[2018-06-27] MEDS: LANSOPRAZOLE 30 MG TAB.RAP.DR PO SCH (05:54)
[2018-06-27] MEDS: PHENYTOIN SODIUM INJ/PF 100 MG/2 ML SDV IV SCH ×3 (05:54→22:37)
[2018-06-27 06:34] LABS: ALANINE AMINOTRANSFERASE 23 U/L (9-52); ALBUMIN 2.4 g/dL (3.5-5.0); ALKALINE PHOSPHATASE 145 U/L (38-126); ANION GAP 10 (5-19); ASPARTATE AMINO TRANSFERASE 22 U/L (14-36); BILIRUBIN,DIRECT 0.4 mg/dL (0.0-0.4); BILIRUBIN,TOTAL 0.4 mg/dL (0.2-1.3); CALCIUM 8.1 mg/dL (8.4-10.2); CARBON DIOXIDE 29 mmol/L (22-30); CHLORIDE 100 mmol/L (98-107); GLUCOSE 95 mg/dL (75-110); POTASSIUM 3.8 mmol/L (3.6-5.0); SODIUM 138.9 mmol/L (137-145); TOTAL PROTEIN 5.3 g/dL (6.3-8.2)
[2018-06-27 06:38] LABS: BLOOD UREA NITROGEN < 2 mg/dL (7-20)
[2018-06-27 06:43] LABS: ABSOLUTE BASOPHILS # (AUTO) 0.1 10^3/uL (0.0-0.2); ABSOLUTE EOSINOPHILS # (AUTO) 0.3 10^3/uL (0.0-0.6); ABSOLUTE LYMPHOCYTES (AUTO) 1.7 10^3/uL (0.5-4.7); ABSOLUTE MONOCYTES (AUTO) 0.7 10^3/uL (0.1-1.4); ABSOLUTE NEUT (AUTO) 3.4 10^3/uL (1.7-8.2); BASOPHILS % (AUTO) 1.3 % (0-2); EOSINOPHILS % (AUTO) 4.1 % (0-6); HEMATOCRIT 34.5 % (36.0-47.0); HEMOGLOBIN 11.1 g/dL (12.0-15.5); LYMPHOCYTES % (AUTO) 27.8 % (13-45); MEAN CORPUSCULAR HEMOGLOBIN 25.2 pg (27.0-33.4); MEAN CORPUSCULAR HGB CONC 32.2 g/dL (32.0-36.0); MEAN CORPUSCULAR VOLUME 78 fl (80-97); MONOCYTES % (AUTO) 11.7 % (3-13); PLATELET COUNT 252 10^3/uL (150-450); RED BLOOD COUNT 4.41 10^6/uL (3.72-5.28); RED CELL DISTRIBUTION WIDTH 21.9 % (11.5-14.0); SEGMENTED NEUTROPHILS % (AUTO) 55.1 % (42-78); TOTAL CELLS COUNTED % (AUTO) 100 %; WHITE BLOOD COUNT 6.2 10^3/uL (4.0-10.5)
[2018-06-27 07:26] LABS: ANISOCYTOSIS 3+; HYPOCHROMASIA 1+; OVALOCYTES 2+; PLATELET COMMENT ADEQUATE; POIKILOCYTOSIS 2+; POLYCHROMASIA SLIGHT
[2018-06-27] MEDS: VALSARTAN 160 MG TABLET PO SCH (09:32)
[2018-06-27] MEDS: HALOPERIDOL 0.5 MG TABLET PO SCH ×2 (09:32→22:36)
[2018-06-27] MEDS: AMLODIPINE BESYLATE 5 MG TABLET PO SCH (09:33)
[2018-06-27] MEDS: PREDNISONE 5 MG TABLET PO SCH (09:33)
[2018-06-27] MEDS: DIGOXIN 0.25 MG TABLET PO SCH (09:33)
[2018-06-27] MEDS: ACETAMINOPHEN 325 MG TABLET PO PRN ×2 (09:33→17:51)
[2018-06-27] MEDS: DOCUSATE SODIUM 100 MG CAPSULE PO SCH ×2 (09:33→17:31)
[2018-06-27] MEDS: MULTIVIT-STRESS FORMULA/ZINC TABLET PO SCH (09:33)
[2018-06-27] MEDS: NORMAL SALINE 1000 ML 1,000 ML IV PRN (13:36)
--- NOTE | 2018-06-27 19:22 | PDOC PROGRESS REPORT ---
Subjective Progress Note for:: 06/27/18 Subjective:: Patient remain dependent on BiPAP support. CTA chest evaluation suggested large bilateral pleural effusion with multiple rib fracture from recent CPR intervention. She denied any chest pain or palpitation. No nausea, vomiting or abdominal pain. No fever or chills. She is currently off Eliquis in anticipation of thoracentesis intervention for bilateral pleural effusion with respiratory compromise. Reason For Visit: ADMIT TO ICU FOR PNA AND SEPSIS Physical Exam Vital Signs: Temp Pulse Resp BP Pulse Ox 98.0 F 80 19 153/73 H 100 06/27/18 11:46 06/27/18 14:24 06/27/18 14:24 06/27/18 11:46 06/27/18 11:46 Intake & Output 06/26/18 06/27/18 06/28/18 06:59 06:59 06:59 Intake Total 1802 1489 835 Output Total 1550 2100 2800 Balance 136 -382 -0609 Weight 75 kg 74.1 kg Physical Exam: Head exam: PRESENT: atraumatic, normocephalic Eye exam: PRESENT: conjunctiva pink, PERRLA Ear exam: PRESENT: normal external ear exam Mouth exam: PRESENT: Fairly moist. Respiratory exam: PRESENT: BiPAP in use, clear to auscultation cas, decreased breath sounds - at lung bases. Cardiovascular exam: PRESENT: Irregularly Irregular rhythm. ABSENT: diastolic murmur, rubs, systolic murmur. bus driver/monitor revealed A.Fib rhythm with controlled rate. Vascular exam: PRESENT: normal capillary refill. ABSENT: pallor GI/Abdominal exam: PRESENT: normal bowel sounds, soft. ABSENT: distended, guarding, mass, organomegaly, rebound, tenderness Extremities exam: ABSENT: pedal edema Musculoskeletal exam: PRESENT: normal inspection Neurological exam: PRESENT: altered - sedated Psychiatric exam: PRESENT: other - limited due to current state of sedation Skin exam: PRESENT: dry, warm Results Laboratory Results: 06/27/18 06:00 06/27/18 06:00 06/27/18 06/27/18 06:00 06:00 WBC 6.2 RBC 4.41 Hgb 11.1 L Hct 34.5 L MCV 78 L MCH 25.2 L MCHC 32.2 RDW 21.9 H Plt Count 252 Seg Neutrophils % 55.1 Lymphocytes % 27.8 Monocytes % 11.7 Eosinophils % 4.1 Basophils % 1.3 Absolute Neutrophils 3.4 Absolute Lymphocytes 1.7 Absolute Monocytes 0.7 Absolute Eosinophils 0.3 Absolute Basophils 0.1 Sodium 138.9 Potassium 3.8 Chloride 100 Carbon Dioxide 29 Anion Gap 10 BUN < 2 L Creatinine 0.43 L Est GFR ( Amer) > 60 Est GFR (Non-Af Amer) > 60 Glucose 95 Calcium 8.1 L Total Bilirubin 0.4 AST 22 ALT 23 Alkaline Phosphatase 145 H Total Protein 5.3 L Albumin 2.4 L 05/29/18 13:12 Bronchial Washings Fungal Smear - Final 05/29/18 13:12 Bronchial Washings Fungal Smear - Final 05/29/18 13:12 Bronchial Washings Fungal Culture - Final 05/29/18 13:12 Bronchial Washings Fungal Culture - Final Impressions: Chest Ultrasound 06/03/18 11:30 IMPRESSION: MODERATE BILATERAL PLEURAL EFFUSIONS. KUB X-Ray 06/11/18 00:00 IMPRESSION: NO RADIOGRAPHIC EVIDENCE FOR ACUTE ABDOMINAL DISEASE. Head CT 06/14/18 00:00 IMPRESSION: Bilateral low-density areas in the white matter that may be related to posterior reversible encephalopathy syndrome. Recommend correlation with patient's history and follow-up MRI with and without contrast could better evaluate as other underlying lesions are not excluded on this exam. Thoracentesis Ultrasound 06/22/18 08:46 IMPRESSION: SUCCESSFUL THORACENTESIS USING ULTRASOUND GUIDANCE. Chest X-Ray 06/24/18 06:00 IMPRESSION: Bilateral pneumonia. No significant change. Chest/Abdomen CTA 06/26/18 00:00 IMPRESSION: Large bilateral pleural effusions with bilateral airspace disease in the lower lobes likely atelectasis Multiple acute anterior bilateral rib fractures likely post resuscitation with chest compressions Assessment & Plan - Diagnosis (1) SIRS with acute organ dysfunction due to infectious process Is this a current diagnosis for this admission?: Yes (2) Lobar pneumonia, unspecified organism Is this a current diagnosis for this admission?: Yes (3) Grecia infection, disseminated Is this a current diagnosis for this admission?: Yes (4) Anemia due to infection Is this a current diagnosis for this admission?: Yes (5) Decompensated COPD with exacerbation (chronic obstructive pulmonary disease) Is this a current diagnosis for this admission?: Yes (6) Chronic atrial fibrillation Is this a current diagnosis for this admission?: Yes (7) HTN (hypertension) Qualifiers: Hypertension type: essential hypertension Qualified Code(s): I10 - Essential (primary) hypertension Is this a current diagnosis for this admission?: Yes (8) HLD (hyperlipidemia) Qualifiers: Hyperlipidemia type: pure hypercholesterolemia Qualified Code(s): E78.00 - Pure hypercholesterolemia, unspecified Is this a current diagnosis for this admission?: Yes (9) GERD (gastroesophageal reflux disease) Qualifiers: Esophagitis presence: esophagitis presence not specified Qualified Code(s) : K21.9 - Gastro-esophageal reflux disease without esophagitis Is this a current diagnosis for this admission?: Yes (10) Anxiety Is this a current diagnosis for this admission?: Yes (11) Depression Qualifiers: Depression Type: major depressive disorder Major depression recurrence: recurrent Active/Remission status: currently active Psychotic features: without psychotic features Is this a current diagnosis for this admission?: Yes (12) Acute delirium Is this a current diagnosis for this admission?: Yes (13) Electrolyte imbalance Is this a current diagnosis for this admission?: Yes (14) Tonic-clonic seizure disorder Is this a current diagnosis for this admission?: Yes (15) Bilateral pleural effusion Is this a current diagnosis for this admission?: Yes - Time Time Spent with patient: 25-34 minutes Medications reviewed and adjusted accordingly: Yes Anticipated discharge: Acute Rehab Within: Other - Inpatient Certification Based on my medical assessment, after consideration of the patient's comorbidities, presenting symptoms, or acuity I expect that the services needed warrant INPATIENT care.: Yes I certify that my determination is in accordance with my understanding of Medicare's requirements for reasonable and necessary INPATIENT services [42 CFR 412.3e].: Yes Medical Necessity: Need Close Monitoring Due to Risk of Patient Decompensation, Need For Continuous Telemetry Monitoring, Need for Nebulizer Therapy and Monitoring of Response, Risk of Complication if Not Cared For in Hospital Post Hospital Care: D/C or Transfer Summary - Plan Summary Plan Summary: Continue current medication management. Follow up with interventional radiologist for US guided thoracentesis procedure tomorrow.
[2018-06-27] MEDS: CLONAZEPAM 1 MG TABLET PO SCH (22:36)
[2018-06-28] MEDS: IPRATROPIUM/ALBUTEROL 0.5-2.5 MG/3 ML AMPUL NEB SCH ×4 (01:47→20:45)
[2018-06-28] MEDS: GABAPENTIN 400 MG CAPSULE PO SCH ×3 (05:18→22:25)
[2018-06-28] MEDS: LANSOPRAZOLE 30 MG TAB.RAP.DR PO SCH (05:19)
[2018-06-28 06:32] LABS: ANION GAP 9 (5-19); BLOOD UREA NITROGEN 2 mg/dL (7-20); CARBON DIOXIDE 30 mmol/L (22-30); CHLORIDE 99 mmol/L (98-107); GLUCOSE 100 mg/dL (75-110); POTASSIUM 3.6 mmol/L (3.6-5.0)
[2018-06-28] MEDS: PHENYTOIN SODIUM INJ/PF 100 MG/2 ML SDV IV SCH ×3 (06:45→22:26)
[2018-06-28] MEDS: HALOPERIDOL 0.5 MG TABLET PO SCH ×2 (09:34→22:26)
[2018-06-28] MEDS: VALSARTAN 160 MG TABLET PO SCH (09:34)
[2018-06-28] MEDS: PREDNISONE 5 MG TABLET PO SCH (09:34)
[2018-06-28] MEDS: DIGOXIN 0.25 MG TABLET PO SCH (09:34)
[2018-06-28] MEDS: AMLODIPINE BESYLATE 5 MG TABLET PO SCH (09:34)
[2018-06-28] MEDS: MULTIVIT-STRESS FORMULA/ZINC TABLET PO SCH (09:34)
[2018-06-28] MEDS: DOCUSATE SODIUM 100 MG CAPSULE PO SCH ×2 (09:35→17:39)
[2018-06-28] MEDS: ACETAMINOPHEN 325 MG TABLET PO PRN ×2 (09:44→13:33)
[2018-06-28] MEDS: NORMAL SALINE 1000 ML 1,000 ML IV PRN (13:34)
--- NOTE | 2018-06-28 18:17 | PDOC PROGRESS REPORT ---
Subjective Progress Note for:: 06/28/18 Subjective:: Patient remain on BiPAP support. She denied any chest pain or palpitation. No nausea, vomiting or abdominal pain. No fever or chills. She is currently off Eliquis x 48 hours tonight in anticipation of therapeutic thoracentesis intervention for bilateral pleural effusion with respiratory compromise. Reason For Visit: ADMIT TO ICU FOR PNA AND SEPSIS Physical Exam Vital Signs: Temp Pulse Resp BP Pulse Ox 98.2 F 89 25 H 156/74 H 98 06/28/18 12:39 06/28/18 14:16 06/28/18 14:16 06/28/18 12:39 06/28/18 14:16 Intake & Output 06/27/18 06/28/18 06/29/18 06:59 06:59 06:59 Intake Total 2194 785 8632 Output Total 2100 2900 900 Balance -611 -2065 100 Weight 74.1 kg Physical Exam: Head exam: PRESENT: atraumatic, normocephalic Eye exam: PRESENT: conjunctiva pink Ear exam: PRESENT: normal external ear exam Mouth exam: PRESENT: Fairly moist. Respiratory exam: PRESENT: BiPAP in use, clear to auscultation cas, decreased breath sounds - at lung bases. Cardiovascular exam: PRESENT: Irregularly Irregular rhythm. ABSENT: diastolic murmur, rubs, systolic murmur. monitoring analyst revealed A.Fib rhythm with controlled rate. Vascular exam: PRESENT: normal capillary refill. ABSENT: pallor GI/Abdominal exam: PRESENT: normal bowel sounds, soft. ABSENT: distended, guarding, mass, organomegaly, rebound, tenderness Extremities exam: ABSENT: pedal edema Musculoskeletal exam: PRESENT: normal inspection Neurological exam: PRESENT: altered with episodes of confusion. Psychiatric exam: PRESENT: other - limited due to current state of sedation Skin exam: PRESENT: dry, warm Results Laboratory Results: 06/27/18 06:00 06/28/18 05:28 06/28/18 05:28 Sodium 138.0 Potassium 3.6 Chloride 99 Carbon Dioxide 30 Anion Gap 9 BUN 2 L Creatinine 0.40 L Est GFR ( Amer) > 60 Est GFR (Non-Af Amer) > 60 Glucose 100 Calcium 8.0 L Impressions: Chest Ultrasound 06/03/18 11:30 IMPRESSION: MODERATE BILATERAL PLEURAL EFFUSIONS. KUB X-Ray 06/11/18 00:00 IMPRESSION: NO RADIOGRAPHIC EVIDENCE FOR ACUTE ABDOMINAL DISEASE. Head CT 06/14/18 00:00 IMPRESSION: Bilateral low-density areas in the white matter that may be related to posterior reversible encephalopathy syndrome. Recommend correlation with patient's history and follow-up MRI with and without contrast could better evaluate as other underlying lesions are not excluded on this exam. Thoracentesis Ultrasound 06/22/18 08:46 IMPRESSION: SUCCESSFUL THORACENTESIS USING ULTRASOUND GUIDANCE. Chest X-Ray 06/24/18 06:00 IMPRESSION: Bilateral pneumonia. No significant change. Chest/Abdomen CTA 06/26/18 00:00 IMPRESSION: Large bilateral pleural effusions with bilateral airspace disease in the lower lobes likely atelectasis Multiple acute anterior bilateral rib fractures likely post resuscitation with chest compressions Assessment & Plan - Diagnosis (1) SIRS with acute organ dysfunction due to infectious process Is this a current diagnosis for this admission?: Yes (2) Lobar pneumonia, unspecified organism Is this a current diagnosis for this admission?: Yes (3) Grecia infection, disseminated Is this a current diagnosis for this admission?: Yes (4) Anemia due to infection Is this a current diagnosis for this admission?: Yes (5) Decompensated COPD with exacerbation (chronic obstructive pulmonary disease) Is this a current diagnosis for this admission?: Yes (6) Chronic atrial fibrillation Is this a current diagnosis for this admission?: Yes (7) HTN (hypertension) Qualifiers: Hypertension type: essential hypertension Qualified Code(s): I10 - Essential (primary) hypertension Is this a current diagnosis for this admission?: Yes (8) HLD (hyperlipidemia) Qualifiers: Hyperlipidemia type: pure hypercholesterolemia Qualified Code(s): E78.00 - Pure hypercholesterolemia, unspecified Is this a current diagnosis for this admission?: Yes (9) GERD (gastroesophageal reflux disease) Qualifiers: Esophagitis presence: esophagitis presence not specified Qualified Code(s) : K21.9 - Gastro-esophageal reflux disease without esophagitis Is this a current diagnosis for this admission?: Yes (10) Anxiety Is this a current diagnosis for this admission?: Yes (11) Depression Qualifiers: Depression Type: major depressive disorder Major depression recurrence: recurrent Active/Remission status: currently active Psychotic features: without psychotic features Is this a current diagnosis for this admission?: Yes (12) Acute delirium Is this a current diagnosis for this admission?: Yes (13) Electrolyte imbalance Is this a current diagnosis for this admission?: Yes (14) Tonic-clonic seizure disorder Is this a current diagnosis for this admission?: Yes (15) Bilateral pleural effusion Is this a current diagnosis for this admission?: Yes - Time Time Spent with patient: 25-34 minutes Medications reviewed and adjusted accordingly: Yes Anticipated discharge: Acute Rehab Within: Other - Inpatient Certification Based on my medical assessment, after consideration of the patient's comorbidities, presenting symptoms, or acuity I expect that the services needed warrant INPATIENT care.: Yes I certify that my determination is in accordance with my understanding of Medicare's requirements for reasonable and necessary INPATIENT services [42 CFR 412.3e].: Yes Medical Necessity: Need Close Monitoring Due to Risk of Patient Decompensation, Need For Continuous Telemetry Monitoring, Risk of Complication if Not Cared For in Hospital Post Hospital Care: D/C or Transfer Summary - Plan Summary Plan Summary: See attending physician orders. She will be schedule for US guided thoracentesis intervention tomorrow with pleural fluid cytology evaluation.
[2018-06-28] MEDS: CLONAZEPAM 1 MG TABLET PO SCH (22:24)
[2018-06-29] MEDS: IPRATROPIUM/ALBUTEROL 0.5-2.5 MG/3 ML AMPUL NEB SCH ×4 (02:02→20:14)
[2018-06-29] MEDS: LANSOPRAZOLE 30 MG TAB.RAP.DR PO SCH (05:28)
[2018-06-29] MEDS: GABAPENTIN 400 MG CAPSULE PO SCH ×3 (05:28→22:21)
[2018-06-29] MEDS: PHENYTOIN SODIUM INJ/PF 100 MG/2 ML SDV IV SCH ×3 (05:28→22:19)
[2018-06-29 06:16] LABS: INTERNATIONAL RATION (INR) 1.04; PROTHROMBIN TIME 14.1 SEC (11.4-15.4)
[2018-06-29 06:17] LABS: PARTIAL THROMBOPLASTIN TIME 28.7 SEC (23.5-35.8)
[2018-06-29 06:23] LABS: HEMATOCRIT 34.3 % (36.0-47.0); MEAN CORPUSCULAR HEMOGLOBIN 25.2 pg (27.0-33.4); MEAN CORPUSCULAR HGB CONC 32.2 g/dL (32.0-36.0); MEAN CORPUSCULAR VOLUME 78 fl (80-97); PLATELET COUNT 198 10^3/uL (150-450); RED BLOOD COUNT 4.38 10^6/uL (3.72-5.28); RED CELL DISTRIBUTION WIDTH 21.5 % (11.5-14.0)
[2018-06-29 06:37] LABS: ANION GAP 9 (5-19); BLOOD UREA NITROGEN 2 mg/dL (7-20); CALCIUM 7.6 mg/dL (8.4-10.2); CARBON DIOXIDE 30 mmol/L (22-30); CHLORIDE 99 mmol/L (98-107); GLUCOSE 88 mg/dL (75-110); POTASSIUM 3.3 mmol/L (3.6-5.0); SODIUM 137.7 mmol/L (137-145)
[2018-06-29] MEDS: AMLODIPINE BESYLATE 5 MG TABLET PO SCH (10:13)
[2018-06-29] MEDS: DIGOXIN 0.25 MG TABLET PO SCH (10:13)
[2018-06-29] MEDS: VALSARTAN 160 MG TABLET PO SCH (10:13)
[2018-06-29] MEDS: MULTIVIT-STRESS FORMULA/ZINC TABLET PO SCH (10:13)
[2018-06-29] MEDS: PREDNISONE 5 MG TABLET PO SCH (10:13)
[2018-06-29] MEDS: HALOPERIDOL 0.5 MG TABLET PO SCH ×2 (10:14→22:20)
[2018-06-29] MEDS: DOCUSATE SODIUM 100 MG CAPSULE PO SCH ×2 (10:25→18:10)
[2018-06-29] MEDS: ACETAMINOPHEN 325 MG TABLET PO PRN (11:18)
[2018-06-29] MEDS: APIXABAN 5 MG TABLET NG SCH ×2 (11:25→18:32)
--- NOTE | 2018-06-29 12:40 | RADIOLOGY REPORT (SQ) ---
EXAM DESCRIPTION: U/S THORACENTESIS WITH IMAGING COMPLETED DATE/TIME: 06/29/2018 11:32 am REASON FOR STUDY: Acute on chronic respirtory Failure on BiPAP COMPARISON: None. LIMITATIONS: None. PROCEDURE: Procedure, risks, benefit, and alternative explained to patient who then gave written con sent. The right posterior chest wall was marked using ultrasound guidance. A time-out was called fo r correct marking verification. Chest prepped and draped using sterile technique. Local anesthesia a chieved using 6 ml of 1% lidocaine injection. A 6fr Safe-T- Centesis set was introduced into the rig ht pleural space. Fluid was aspirated. The catheter was removed and the entry site was covered with sterile bandage. No immediate complications noted. Images acquired during the procedure were stored on PACS. FINDINGS: ENTRY SITE: posterior right chest. FLUID VOLUME: 800 mL clear right pleural fluid FLUID ANALYSIS: Pending OTHER: Fluid sent to the lab for testing. IMPRESSION: SUCCESSFUL THORACENTESIS USING ULTRASOUND GUIDANCE. COMMENT: Patient medication list reviewed: Yes- Quality ID# [id number]:Eligible professional attests to doc umenting in the medical record they obtained, updated, or reviewed the patient's current medications. TECHNICAL DOCUMENTATION: JOB ID: [id number] [employer]- All Rights Reserved Reading location - IP/workstation name: [email or web address]
--- NOTE | 2018-06-29 13:56 | RADIOLOGY REPORT (SQ) ---
EXAM DESCRIPTION: CHEST SINGLE VIEW COMPLETED DATE/TIME: 06/29/2018 1:11 pm REASON FOR STUDY: S/P THORACENTESIS COMPARISON: Chest films 06/22/2018, 06/23/2018, 06/24/2018 EXAM PARAMETERS: NUMBER OF VIEWS: One view. TECHNIQUE: Single frontal radiographic view of the chest acquired. RADIATION DOSE: NA LIMITATIONS: None. FINDINGS: LUNGS AND PLEURA: 2 hours post right thoracentesis with removal of 800 mL of fluid from th e right hemithorax. No pneumothorax. No residual right pleural effusion. Minimal right apical airspace disease, possible residual right-sided pneumonia. Small left pleural effusion, persistent left lower lobe consolidation atelectasis versus pneumonia. MEDIASTINUM AND HILAR STRUCTURES: No masses. Contour normal. HEART AND VASCULAR STRUCTURES: No cardiomegaly BONES: No acute findings. HARDWARE: Right jugular central line tip superior vena cava OTHER: No other significant finding. IMPRESSION: No pneumothorax 2 hours post right-sided thoracentesis. No significant right residual p leural effusion TECHNICAL DOCUMENTATION: JOB ID: [id number] [employer]- All Rights Reserved Reading location - IP/workstation name: [email or web address]
[2018-06-29] MEDS: NORMAL SALINE 1000 ML 1,000 ML IV PRN (14:23)
--- NOTE | 2018-06-29 15:35 | RADIOLOGY REPORT (SQ) ---
EXAM DESCRIPTION: CHEST SINGLE VIEW COMPLETED DATE/TIME: 06/29/2018 3:24 pm REASON FOR STUDY: 2 HOUR s/p thoracentesis COMPARISON: AP chest 06/29/2018 1304 hours EXAM PARAMETERS: NUMBER OF VIEWS: One view. TECHNIQUE: Single frontal radiographic view of the chest acquired. RADIATION DOSE: NA LIMITATIONS: None. FINDINGS: LUNGS AND PLEURA: 4 hours post thoracentesis, no pneumothorax. No residual right pleural effusion Minimal persistent airspace disease in the right lung apex and left retrocardiac region. Trace resid ual left pleural fluid. MEDIASTINUM AND HILAR STRUCTURES: No masses. Contour normal. HEART AND VASCULAR STRUCTURES: Heart normal in size. Normal vasculature. BONES: No acute findings. HARDWARE: Right jugular central line tip superior vena cava OTHER: No other significant finding. IMPRESSION: None pneumothorax 4 hours post thoracentesis. No residual right pleural effusion. Minimal airspace disease persists in the medial right lung apex and left retrocardiac region TECHNICAL DOCUMENTATION: JOB ID: [id number] [employer]- All Rights Reserved Reading location - IP/workstation name: [email or web address]
--- NOTE | 2018-06-29 18:21 | PDOC PROGRESS REPORT ---
Subjective Progress Note for:: 06/29/18 Subjective:: Patient is s/p right therapeutic thoracentesis. She is currently on supplemental oxygen via nasal cannula and off BiPAP except while sleeping. About 800cc of pleural fluid extracted during procedure. Awaiting cytology report. She denied any chest pain or palpitation. No nausea, vomiting or abdominal pain. No fever or chills. She will continue on Eliquis hold status until 07/02/18 for left side thoracentesis intervention. Reason For Visit: ADMIT TO ICU FOR PNA AND SEPSIS Physical Exam Vital Signs: Temp Pulse Resp BP Pulse Ox 98.2 F 81 18 161/49 H 97 06/29/18 12:33 06/29/18 14:46 06/29/18 15:47 06/29/18 12:33 06/29/18 15:47 Intake & Output 06/28/18 06/29/18 06/30/18 06:59 06:59 06:59 Intake Total 835 1155 1050 Output Total 2900 2000 900 Balance -2065 -845 150 Weight 72.8 kg Physical Exam: Head exam: PRESENT: atraumatic, normocephalic Eye exam: PRESENT: conjunctiva pink Ear exam: PRESENT: normal external ear exam Mouth exam: PRESENT: Fairly moist. Respiratory exam: PRESENT: BiPAP in use, clear to auscultation cas, decreased breath sounds - at lung bases. Cardiovascular exam: PRESENT: Irregularly Irregular rhythm. ABSENT: diastolic murmur, rubs, systolic murmur. child monitor revealed A.Fib rhythm with controlled rate. Vascular exam: PRESENT: normal capillary refill. ABSENT: pallor GI/Abdominal exam: PRESENT: normal bowel sounds, soft. ABSENT: distended, guarding, mass, organomegaly, rebound, tenderness Extremities exam: ABSENT: pedal edema Musculoskeletal exam: PRESENT: normal inspection Neurological exam: PRESENT: altered with episodes of confusion. Psychiatric exam: PRESENT: other - limited due to current state of sedation Skin exam: PRESENT: dry, warm Results Laboratory Results: 06/29/18 05:50 06/29/18 05:50 06/29/18 06/29/18 05:50 05:50 WBC 6.0 RBC 4.38 Hgb 11.0 L Hct 34.3 L MCV 78 L MCH 25.2 L MCHC 32.2 RDW 21.5 H Plt Count 198 Sodium 137.7 Potassium 3.3 L Chloride 99 Carbon Dioxide 30 Anion Gap 9 BUN 2 L Creatinine 0.44 L Est GFR ( Amer) > 60 Est GFR (Non-Af Amer) > 60 Glucose 88 Calcium 7.6 L Impressions: Chest Ultrasound 06/03/18 11:30 IMPRESSION: MODERATE BILATERAL PLEURAL EFFUSIONS. KUB X-Ray 06/11/18 00:00 IMPRESSION: NO RADIOGRAPHIC EVIDENCE FOR ACUTE ABDOMINAL DISEASE. Head CT 06/14/18 00:00 IMPRESSION: Bilateral low-density areas in the white matter that may be related to posterior reversible encephalopathy syndrome. Recommend correlation with patient's history and follow-up MRI with and without contrast could better evaluate as other underlying lesions are not excluded on this exam. Chest/Abdomen CTA 06/26/18 00:00 IMPRESSION: Large bilateral pleural effusions with bilateral airspace disease in the lower lobes likely atelectasis Multiple acute anterior bilateral rib fractures likely post resuscitation with chest compressions Thoracentesis Ultrasound 06/29/18 08:00 IMPRESSION: SUCCESSFUL THORACENTESIS USING ULTRASOUND GUIDANCE. Chest X-Ray 06/29/18 15:00 IMPRESSION: None pneumothorax 4 hours post thoracentesis. No residual right pleural effusion. Minimal airspace disease persists in the medial right lung apex and left retrocardiac region Assessment & Plan - Diagnosis (1) SIRS with acute organ dysfunction due to infectious process Is this a current diagnosis for this admission?: Yes (2) Lobar pneumonia, unspecified organism Is this a current diagnosis for this admission?: Yes (3) Grecia infection, disseminated Is this a current diagnosis for this admission?: Yes (4) Anemia due to infection Is this a current diagnosis for this admission?: Yes (5) Decompensated COPD with exacerbation (chronic obstructive pulmonary disease) Is this a current diagnosis for this admission?: Yes (6) Chronic atrial fibrillation Is this a current diagnosis for this admission?: Yes (7) HTN (hypertension) Qualifiers: Hypertension type: essential hypertension Qualified Code(s): I10 - Essential (primary) hypertension Is this a current diagnosis for this admission?: Yes (8) HLD (hyperlipidemia) Qualifiers: Hyperlipidemia type: pure hypercholesterolemia Qualified Code(s): E78.00 - Pure hypercholesterolemia, unspecified Is this a current diagnosis for this admission?: Yes (9) GERD (gastroesophageal reflux disease) Qualifiers: Esophagitis presence: esophagitis presence not specified Qualified Code(s) : K21.9 - Gastro-esophageal reflux disease without esophagitis Is this a current diagnosis for this admission?: Yes (10) Anxiety Is this a current diagnosis for this admission?: Yes (11) Depression Qualifiers: Depression Type: major depressive disorder Major depression recurrence: recurrent Active/Remission status: currently active Psychotic features: without psychotic features Is this a current diagnosis for this admission?: Yes (12) Acute delirium Is this a current diagnosis for this admission?: Yes (13) Electrolyte imbalance Is this a current diagnosis for this admission?: Yes (14) Tonic-clonic seizure disorder Is this a current diagnosis for this admission?: Yes (15) Bilateral pleural effusion Is this a current diagnosis for this admission?: Yes - Time Time Spent with patient: 25-34 minutes Medications reviewed and adjusted accordingly: Yes Anticipated discharge: Acute Rehab Within: Other - Inpatient Certification Based on my medical assessment, after consideration of the patient's comorbidities, presenting symptoms, or acuity I expect that the services needed warrant INPATIENT care.: Yes I certify that my determination is in accordance with my understanding of Medicare's requirements for reasonable and necessary INPATIENT services [42 CFR 412.3e].: Yes Medical Necessity: Need Close Monitoring Due to Risk of Patient Decompensation, Need For Continuous Telemetry Monitoring, Need for Nebulizer Therapy and Monitoring of Response, Risk of Complication if Not Cared For in Hospital Post Hospital Care: D/C or Transfer Summary - Plan Summary Plan Summary: Continue current management. Potassium replacement in progress. Obtain serum mag level and replace if necessary. I discussed care plan with Dr Larios regarding thoracentesis on 07/02/18 as well as patient and daughter at bedside.
[2018-06-29] MEDS: POTASSI CL 20 MEQ/50 ML RIDER 20 MEQ/50 ML RTUPB IV SCH ×3 (18:48→22:26)
[2018-06-29] MEDS: CLONAZEPAM 1 MG TABLET PO SCH (22:20)
[2018-06-29] MEDS ORDERED: POTASSI CL 20 MEQ/50 ML RIDER 20 MEQ/50 ML RTUPB IV ONE (22:48)
[2018-06-30] MEDS: ENALAPRILAT DIHYDRATE INJ/PF 2.5 MG/2 ML SDV IV PRN ×2 (00:27→21:12)
[2018-06-30] MEDS: IPRATROPIUM/ALBUTEROL 0.5-2.5 MG/3 ML AMPUL NEB SCH ×4 (02:25→20:38)
[2018-06-30] MEDS: LANSOPRAZOLE 30 MG TAB.RAP.DR PO SCH (05:57)
[2018-06-30] MEDS: GABAPENTIN 400 MG CAPSULE PO SCH ×3 (05:57→21:20)
[2018-06-30] MEDS: PHENYTOIN SODIUM INJ/PF 100 MG/2 ML SDV IV SCH ×3 (05:58→21:20)
[2018-06-30 06:27] LABS: HEMATOCRIT 33.9 % (36.0-47.0); MEAN CORPUSCULAR HEMOGLOBIN 25.5 pg (27.0-33.4); MEAN CORPUSCULAR HGB CONC 32.6 g/dL (32.0-36.0); MEAN CORPUSCULAR VOLUME 78 fl (80-97); PLATELET COUNT 188 10^3/uL (150-450); RED BLOOD COUNT 4.32 10^6/uL (3.72-5.28); RED CELL DISTRIBUTION WIDTH 21.6 % (11.5-14.0); WHITE BLOOD COUNT 7.1 10^3/uL (4.0-10.5)
[2018-06-30 06:33] LABS: INTERNATIONAL RATION (INR) 1.03
[2018-06-30 07:33] LABS: ANION GAP 10 (5-19); BLOOD UREA NITROGEN 3 mg/dL (7-20); CALCIUM 7.7 mg/dL (8.4-10.2); CARBON DIOXIDE 28 mmol/L (22-30); CHLORIDE 100 mmol/L (98-107); GLUCOSE 94 mg/dL (75-110); SODIUM 137.8 mmol/L (137-145)
[2018-06-30] MEDS: NORMAL SALINE 1000 ML 1,000 ML IV PRN (08:26)
[2018-06-30] MEDS: MULTIVIT-STRESS FORMULA/ZINC TABLET PO SCH (09:46)
[2018-06-30] MEDS: AMLODIPINE BESYLATE 5 MG TABLET PO SCH (09:46)
[2018-06-30] MEDS: DIGOXIN 0.25 MG TABLET PO SCH (09:46)
[2018-06-30] MEDS: PREDNISONE 5 MG TABLET PO SCH (09:46)
[2018-06-30] MEDS: VALSARTAN 160 MG TABLET PO SCH (09:46)
[2018-06-30] MEDS: HALOPERIDOL 0.5 MG TABLET PO SCH ×2 (09:47→21:23)
[2018-06-30] MEDS: DOCUSATE SODIUM 100 MG CAPSULE PO SCH ×2 (09:48→18:17)
[2018-06-30] MEDS: APIXABAN 5 MG TABLET NG SCH ×2 (09:48→18:17)
--- NOTE | 2018-06-30 20:36 | PDOC PROGRESS REPORT ---
Subjective Progress Note for:: 06/30/18 Subjective:: Patient has been on BiPAP support most of today as per nursing report due to episodes of air hunger. She denied chest pain. No abdominal pain, nausea or vomiting. No fever or chills. Reason For Visit: ADMIT TO ICU FOR PNA AND SEPSIS Physical Exam Vital Signs: Temp Pulse Resp BP Pulse Ox 98.9 F 95 24 H 152/52 H 100 06/30/18 16:02 06/30/18 19:00 06/30/18 16:44 06/30/18 16:02 06/30/18 16:02 Intake & Output 06/29/18 06/30/18 07/01/18 06:59 06:59 06:59 Intake Total 1155 1216 1050 Output Total 1999 1999 1000 Balance -845 -784 50 Weight 72.8 kg 69.8 kg Physical Exam: Head exam: PRESENT: atraumatic, normocephalic Eye exam: PRESENT: conjunctiva pink Ear exam: PRESENT: normal external ear exam Mouth exam: PRESENT: Fairly moist. Respiratory exam: PRESENT: BiPAP in use, clear to auscultation cas, decreased breath sounds - at lung bases. Cardiovascular exam: PRESENT: Irregularly Irregular rhythm. ABSENT: diastolic murmur, rubs, systolic murmur. monitoring coordinator revealed A.Fib rhythm with controlled rate. Vascular exam: PRESENT: normal capillary refill. ABSENT: pallor GI/Abdominal exam: PRESENT: normal bowel sounds, soft. ABSENT: distended, guarding, mass, organomegaly, rebound, tenderness Extremities exam: ABSENT: pedal edema Musculoskeletal exam: PRESENT: normal inspection Neurological exam: PRESENT: altered with episodes of confusion. Psychiatric exam: PRESENT: other - limited due to current state of sedation Skin exam: PRESENT: dry, warm Results Laboratory Results: 06/30/18 06:00 06/30/18 06:00 06/30/18 06/30/18 06:00 06:00 WBC 7.1 RBC 4.32 Hgb 11.0 L Hct 33.9 L MCV 78 L MCH 25.5 L MCHC 32.6 RDW 21.6 H Plt Count 188 Sodium 137.8 Potassium 4.0 Chloride 100 Carbon Dioxide 28 Anion Gap 10 BUN 3 L Creatinine 0.41 L Est GFR ( Amer) > 60 Est GFR (Non-Af Amer) > 60 Glucose 94 Calcium 7.7 L Impressions: Chest Ultrasound 06/03/18 11:30 IMPRESSION: MODERATE BILATERAL PLEURAL EFFUSIONS. KUB X-Ray 06/11/18 00:00 IMPRESSION: NO RADIOGRAPHIC EVIDENCE FOR ACUTE ABDOMINAL DISEASE. Head CT 06/14/18 00:00 IMPRESSION: Bilateral low-density areas in the white matter that may be related to posterior reversible encephalopathy syndrome. Recommend correlation with patient's history and follow-up MRI with and without contrast could better evaluate as other underlying lesions are not excluded on this exam. Chest/Abdomen CTA 06/26/18 00:00 IMPRESSION: Large bilateral pleural effusions with bilateral airspace disease in the lower lobes likely atelectasis Multiple acute anterior bilateral rib fractures likely post resuscitation with chest compressions Thoracentesis Ultrasound 06/29/18 08:00 IMPRESSION: SUCCESSFUL THORACENTESIS USING ULTRASOUND GUIDANCE. Chest X-Ray 06/29/18 15:00 IMPRESSION: None pneumothorax 4 hours post thoracentesis. No residual right pleural effusion. Minimal airspace disease persists in the medial right lung apex and left retrocardiac region Assessment & Plan - Diagnosis (1) SIRS with acute organ dysfunction due to infectious process Is this a current diagnosis for this admission?: Yes (2) Lobar pneumonia, unspecified organism Is this a current diagnosis for this admission?: Yes (3) Grecia infection, disseminated Is this a current diagnosis for this admission?: Yes (4) Anemia due to infection Is this a current diagnosis for this admission?: Yes (5) Decompensated COPD with exacerbation (chronic obstructive pulmonary disease) Is this a current diagnosis for this admission?: Yes (6) Chronic atrial fibrillation Is this a current diagnosis for this admission?: Yes (7) HTN (hypertension) Qualifiers: Hypertension type: essential hypertension Qualified Code(s): I10 - Essential (primary) hypertension Is this a current diagnosis for this admission?: Yes (8) HLD (hyperlipidemia) Qualifiers: Hyperlipidemia type: pure hypercholesterolemia Qualified Code(s): E78.00 - Pure hypercholesterolemia, unspecified Is this a current diagnosis for this admission?: Yes (9) GERD (gastroesophageal reflux disease) Qualifiers: Esophagitis presence: esophagitis presence not specified Qualified Code(s) : K21.9 - Gastro-esophageal reflux disease without esophagitis Is this a current diagnosis for this admission?: Yes (10) Anxiety Is this a current diagnosis for this admission?: Yes (11) Depression Qualifiers: Depression Type: major depressive disorder Major depression recurrence: recurrent Active/Remission status: currently active Psychotic features: without psychotic features Is this a current diagnosis for this admission?: Yes (12) Acute delirium Is this a current diagnosis for this admission?: Yes (13) Electrolyte imbalance Is this a current diagnosis for this admission?: Yes (14) Tonic-clonic seizure disorder Is this a current diagnosis for this admission?: Yes (15) Bilateral pleural effusion Is this a current diagnosis for this admission?: Yes - Time Time Spent with patient: 25-34 minutes Medications reviewed and adjusted accordingly: Yes Anticipated discharge: Acute Rehab Within: Other - Inpatient Certification Based on my medical assessment, after consideration of the patient's comorbidities, presenting symptoms, or acuity I expect that the services needed warrant INPATIENT care.: Yes I certify that my determination is in accordance with my understanding of Medicare's requirements for reasonable and necessary INPATIENT services [42 CFR 412.3e].: Yes Medical Necessity: Need Close Monitoring Due to Risk of Patient Decompensation, Need For Continuous Telemetry Monitoring, Need for Nebulizer Therapy and Monitoring of Response, Risk of Complication if Not Cared For in Hospital Post Hospital Care: D/C or Transfer Summary - Plan Summary Plan Summary: Obtain portable chest X ray. Obtain ABG off BiPAP tomorrow. Continue on all other current medication management. Continue to hold Eliquis for possible left thoracentesis on 07/02/18.
[2018-06-30] MEDS: CLONAZEPAM 1 MG TABLET PO SCH (21:20)
--- NOTE | 2018-06-30 21:21 | RADIOLOGY REPORT (SQ) ---
EXAM DESCRIPTION: CHEST SINGLE VIEW COMPLETED DATE/TIME: 06/30/2018 9:10 pm REASON FOR STUDY: Difficulty with breathing COMPARISON: 06/29/2018 EXAM PARAMETERS: NUMBER OF VIEWS: One view. TECHNIQUE: Single frontal radiographic view of the chest acquired. RADIATION DOSE: NA LIMITATIONS: None. FINDINGS: LUNGS AND PLEURA: Stable pulmonary exam demonstrating hazy opacification of the right apic al lung and left lower lobe. Small left pleural effusion. No new focal consolidation. No pneumotho rax. MEDIASTINUM AND HILAR STRUCTURES: No masses. Contour normal. HEART AND VASCULAR STRUCTURES: Heart normal in size. Normal vasculature. BONES: No acute findings. HARDWARE: Right cervical vascular access catheter stable in position and appearance. OTHER: No other significant finding. IMPRESSION: Stable radiographic appearance of the chest demonstrating right apical and left lower lo be pulmonary opacities with a small left-sided pleural effusion. Stable vascular access catheter. TECHNICAL DOCUMENTATION: JOB ID: [id number] [employer]- All Rights Reserved Reading location - IP/workstation name: [email or web address]
[2018-07-01] MEDS: IPRATROPIUM/ALBUTEROL 0.5-2.5 MG/3 ML AMPUL NEB SCH ×4 (02:31→20:45)
[2018-07-01] MEDS: NORMAL SALINE 1000 ML 1,000 ML IV PRN (04:12)
[2018-07-01] MEDS: GABAPENTIN 400 MG CAPSULE PO SCH ×3 (05:12→21:00)
[2018-07-01] MEDS: LANSOPRAZOLE 30 MG TAB.RAP.DR PO SCH (05:12)
[2018-07-01] MEDS: PHENYTOIN SODIUM INJ/PF 100 MG/2 ML SDV IV SCH ×2 (05:13→14:43)
[2018-07-01 05:50] LABS: ANION GAP 8 (5-19); BLOOD UREA NITROGEN 3 mg/dL (7-20); CALCIUM 7.6 mg/dL (8.4-10.2); CARBON DIOXIDE 31 mmol/L (22-30); CHLORIDE 99 mmol/L (98-107); GLUCOSE 97 mg/dL (75-110); POTASSIUM 3.3 mmol/L (3.6-5.0); SODIUM 137.5 mmol/L (137-145)
[2018-07-01] MEDS: MULTIVIT-STRESS FORMULA/ZINC TABLET PO SCH (09:29)
[2018-07-01] MEDS: PREDNISONE 5 MG TABLET PO SCH (09:29)
[2018-07-01] MEDS: AMLODIPINE BESYLATE 5 MG TABLET PO SCH (09:30)
[2018-07-01] MEDS: VALSARTAN 160 MG TABLET PO SCH (09:30)
[2018-07-01] MEDS: DIGOXIN 0.25 MG TABLET PO SCH (09:30)
[2018-07-01] MEDS: HALOPERIDOL 0.5 MG TABLET PO SCH (09:31)
[2018-07-01 09:51] LABS: ARTERIAL BLOOD BASE EXCESS 4.4 mmol/L; ARTERIAL BLOOD FIO2 3.5L; ARTERIAL BLOOD H2CO3 1.81 mmol/L (1.05-1.35); ARTERIAL BLOOD HCO3 31.6 mmol/L (20-26); ARTERIAL BLOOD O2 SATURATION 92.5 % (94-98); ARTERIAL BLOOD PCO2 60.2 mmHg (35-45); ARTERIAL BLOOD PH 7.34 (7.35-7.45); ARTERIAL BLOOD PO2 69.6 mmHg (80-100); ARTERIAL BLOOD TOTAL CO2 33.5 mmol/L (21-25)
[2018-07-01] MEDS: ACETAMINOPHEN 325 MG TABLET PO PRN (10:54)
[2018-07-01] MEDS ORDERED: OXYCODONE-ACETAMINOPHEN 5-325 MG TABLET PO PRN (16:26)
[2018-07-01] MEDS ORDERED: GUAIFENESIN SYRP 200 MG/10 ML UDC PO PRN (16:27)
--- NOTE | 2018-07-01 18:14 | PDOC PROGRESS REPORT ---
Subjective Progress Note for:: 07/01/18 Subjective:: Patient was able to tolerate off BiPAP period but eventually had to be placed on it due to expressed difficulty with breathing and desaturation. Patient continue to demonstrate episodes of agitation and anxiety that may be contributing to her breathing problem. No reported fever or chills. No nausea or vomiting. P.O intake remain a challenge. Reason For Visit: ADMIT TO ICU FOR PNA AND SEPSIS Physical Exam Vital Signs: Temp Pulse Resp BP Pulse Ox 97.3 F 88 24 H 149/61 H 100 07/01/18 16:25 07/01/18 16:25 07/01/18 16:25 07/01/18 16:25 07/01/18 16:25 Intake & Output 06/30/18 07/01/18 07/02/18 06:59 06:59 06:59 Intake Total 1216 2039 50 Output Total 1999 1675 700 Balance -784 364 -650 Weight 69.8 kg 70 kg Physical Exam: Head exam: PRESENT: atraumatic, normocephalic Eye exam: PRESENT: conjunctiva pink Ear exam: PRESENT: normal external ear exam Mouth exam: PRESENT: Fairly moist. Respiratory exam: PRESENT: BiPAP in use, clear to auscultation cas, decreased breath sounds - at lung bases. Cardiovascular exam: PRESENT: Irregularly Irregular rhythm. ABSENT: diastolic murmur, rubs, systolic murmur. nurse monitoring revealed A.Fib rhythm with controlled rate. Vascular exam: PRESENT: normal capillary refill. ABSENT: pallor GI/Abdominal exam: PRESENT: normal bowel sounds, soft. ABSENT: distended, guarding, mass, organomegaly, rebound, tenderness Extremities exam: ABSENT: pedal edema Musculoskeletal exam: PRESENT: normal inspection Neurological exam: PRESENT: altered with episodes of confusion. Psychiatric exam: PRESENT: other - limited due to current state of sedation Skin exam: PRESENT: dry, warm Results Laboratory Results: 06/30/18 06:00 07/01/18 05:20 07/01/18 07/01/18 05:20 09:18 Carbonic Acid 1.81 H HCO3/H2CO3 Ratio 17:1 ABG pH 7.34 L ABG pCO2 60.2 H ABG pO2 69.6 L ABG HCO3 31.6 H ABG O2 Saturation 92.5 L ABG Base Excess 4.4 FiO2 3.5L Sodium 137.5 Potassium 3.3 L Chloride 99 Carbon Dioxide 31 H Anion Gap 8 BUN 3 L Creatinine 0.44 L Est GFR ( Amer) > 60 Est GFR (Non-Af Amer) > 60 Glucose 97 Calcium 7.6 L Impressions: Chest Ultrasound 06/03/18 11:30 IMPRESSION: MODERATE BILATERAL PLEURAL EFFUSIONS. KUB X-Ray 06/11/18 00:00 IMPRESSION: NO RADIOGRAPHIC EVIDENCE FOR ACUTE ABDOMINAL DISEASE. Head CT 06/14/18 00:00 IMPRESSION: Bilateral low-density areas in the white matter that may be related to posterior reversible encephalopathy syndrome. Recommend correlation with patient's history and follow-up MRI with and without contrast could better evaluate as other underlying lesions are not excluded on this exam. Chest/Abdomen CTA 06/26/18 00:00 IMPRESSION: Large bilateral pleural effusions with bilateral airspace disease in the lower lobes likely atelectasis Multiple acute anterior bilateral rib fractures likely post resuscitation with chest compressions Thoracentesis Ultrasound 06/29/18 08:00 IMPRESSION: SUCCESSFUL THORACENTESIS USING ULTRASOUND GUIDANCE. Chest X-Ray 06/30/18 00:00 IMPRESSION: Stable radiographic appearance of the chest demonstrating right apical and left lower lobe pulmonary opacities with a small left-sided pleural effusion. Stable vascular access catheter. Assessment & Plan - Diagnosis (1) SIRS with acute organ dysfunction due to infectious process Is this a current diagnosis for this admission?: Yes (2) Lobar pneumonia, unspecified organism Is this a current diagnosis for this admission?: Yes (3) Grecia infection, disseminated Is this a current diagnosis for this admission?: Yes (4) Anemia due to infection Is this a current diagnosis for this admission?: Yes (5) Decompensated COPD with exacerbation (chronic obstructive pulmonary disease) Is this a current diagnosis for this admission?: Yes (6) Chronic atrial fibrillation Is this a current diagnosis for this admission?: Yes (7) HTN (hypertension) Qualifiers: Hypertension type: essential hypertension Qualified Code(s): I10 - Essential (primary) hypertension Is this a current diagnosis for this admission?: Yes (8) HLD (hyperlipidemia) Qualifiers: Hyperlipidemia type: pure hypercholesterolemia Qualified Code(s): E78.00 - Pure hypercholesterolemia, unspecified Is this a current diagnosis for this admission?: Yes (9) GERD (gastroesophageal reflux disease) Qualifiers: Esophagitis presence: esophagitis presence not specified Qualified Code(s) : K21.9 - Gastro-esophageal reflux disease without esophagitis Is this a current diagnosis for this admission?: Yes (10) Anxiety Is this a current diagnosis for this admission?: Yes (11) Depression Qualifiers: Depression Type: major depressive disorder Major depression recurrence: recurrent Active/Remission status: currently active Psychotic features: without psychotic features Is this a current diagnosis for this admission?: Yes (12) Acute delirium Is this a current diagnosis for this admission?: Yes (13) Electrolyte imbalance Is this a current diagnosis for this admission?: Yes (14) Tonic-clonic seizure disorder Is this a current diagnosis for this admission?: Yes (15) Bilateral pleural effusion Is this a current diagnosis for this admission?: Yes - Time Time Spent with patient: 25-34 minutes Medications reviewed and adjusted accordingly: Yes Anticipated discharge: SNF, Acute Rehab Within: Other - Inpatient Certification Based on my medical assessment, after consideration of the patient's comorbidities, presenting symptoms, or acuity I expect that the services needed warrant INPATIENT care.: Yes I certify that my determination is in accordance with my understanding of Medicare's requirements for reasonable and necessary INPATIENT services [42 CFR 412.3e].: Yes Medical Necessity: Need Close Monitoring Due to Risk of Patient Decompensation, Need For Continuous Telemetry Monitoring, Need for Nebulizer Therapy and Monitoring of Response, Need for IV Antibiotics, Risk of Complication if Not Cared For in Hospital Post Hospital Care: D/C or Transfer Summary - Plan Summary Plan Summary: Patient will receive potassium replacement therapy. Obtain serum Mag level. D.C Haloperidol. Increase clonazepam to 0.25 mg p.o bid QAM and HS schedule. I will discuss with eligibility specialist in regarding Trilogy usage in view of her chronic hypercapnia.
[2018-07-01] MEDS: POTASSIUM CHLORIDE 10 MEQ CAPSULE.ER PO SCH ×2 (19:14→21:02)
[2018-07-01] MEDS: ENALAPRILAT DIHYDRATE INJ/PF 2.5 MG/2 ML SDV IV PRN (19:43)
[2018-07-01] MEDS: CLONAZEPAM 1 MG TABLET PO SCH (21:01)
[2018-07-01] MEDS: PHENYTOIN SODIUM EXTENDED 100 MG CAPSULE PO SCH (21:03)
[2018-07-02] MEDS: NORMAL SALINE 1000 ML 1,000 ML IV PRN ×2 (00:41→22:55)
[2018-07-02] MEDS: IPRATROPIUM/ALBUTEROL 0.5-2.5 MG/3 ML AMPUL NEB SCH ×4 (02:38→21:06)
[2018-07-02] MEDS: PHENYTOIN SODIUM EXTENDED 100 MG CAPSULE PO SCH ×3 (05:53→13:45)
[2018-07-02] MEDS: LANSOPRAZOLE 30 MG TAB.RAP.DR PO SCH ×3 (05:53→23:09)
[2018-07-02] MEDS: GABAPENTIN 400 MG CAPSULE PO SCH ×3 (05:53→13:45)
[2018-07-02] MEDS ORDERED: PHENYTOIN SODIUM INJ/PF 100 MG/2 ML SDV ONE (06:16)
[2018-07-02] MEDS: ENALAPRILAT DIHYDRATE INJ/PF 2.5 MG/2 ML SDV IV PRN ×2 (06:19→06:35)
[2018-07-02] MEDS ORDERED: NORMAL SALINE IV ONE (06:30)
[2018-07-02] MEDS ORDERED: PHENYTOIN SODIUM IV ONE (06:30)
[2018-07-02 06:37] LABS: ANION GAP 7 (5-19); BLOOD UREA NITROGEN 4 mg/dL (7-20); CALCIUM 7.8 mg/dL (8.4-10.2); CARBON DIOXIDE 28 mmol/L (22-30); CHLORIDE 102 mmol/L (98-107); GLUCOSE 99 mg/dL (75-110); POTASSIUM 4.7 mmol/L (3.6-5.0); SODIUM 137.3 mmol/L (137-145)
[2018-07-02] MEDS: DIGOXIN 0.25 MG TABLET PO SCH (09:00)
[2018-07-02] MEDS: MULTIVIT-STRESS FORMULA/ZINC TABLET PO SCH (09:00)
[2018-07-02] MEDS: PREDNISONE 5 MG TABLET PO SCH (09:00)
[2018-07-02] MEDS: VALSARTAN 160 MG TABLET PO SCH (09:00)
[2018-07-02] MEDS: AMLODIPINE BESYLATE 5 MG TABLET PO SCH (09:00)
[2018-07-02] MEDS ORDERED: CLONAZEPAM 1 MG TABLET PO SCH (10:00)
--- NOTE | 2018-07-02 16:53 | RADIOLOGY REPORT (SQ) ---
EXAM DESCRIPTION: U/S CHEST COMPLETED DATE/TIME: 07/02/2018 4:17 pm REASON FOR STUDY: Consult US for US guided thoracentesis left lung COMPARISON: None. TECHNIQUE: PORTABLE ULTRASOUND WAS PERFORMED OF THE LEFT CHEST to assess quantity of pleural fluid. LIMITATIONS: None. FINDINGS: There is a small residual left pleural effusion is present in the posterior costophrenic s ulcus. Left ultrasound-guided thoracentesis is on the schedule for tomorrow morning. IMPRESSION: Small residual left pleural effusion TECHNICAL DOCUMENTATION: JOB ID: [id number] [employer]- All Rights Reserved Reading location - IP/workstation name: [email or web address]
--- NOTE | 2018-07-02 18:20 | PDOC PROGRESS REPORT ---
Subjective Progress Note for:: 07/02/18 Subjective:: Patient had another episode of seizure activity last night. Her blood pressure was elevated which could have contributed into the episode. Patient continue to demonstrate delirium and agitation with family members. No reported chest pain. No fever. No nausea or vomiting. Reason For Visit: ADMIT TO ICU FOR PNA AND SEPSIS Physical Exam Vital Signs: Temp Pulse Resp BP Pulse Ox 98.2 F 98 28 H 142/63 H 100 07/02/18 12:03 07/02/18 14:28 07/02/18 14:28 07/02/18 12:03 07/02/18 14:28 Intake & Output 07/01/18 07/02/18 07/03/18 06:59 06:59 06:59 Intake Total 2039 1290 115 Output Total 1675 1300 Balance 364 -10 115 Weight 70 kg 69.5 kg Physical Exam: Head exam: PRESENT: atraumatic, normocephalic Eye exam: PRESENT: conjunctiva pink Ear exam: PRESENT: normal external ear exam Mouth exam: PRESENT: Fairly moist. Respiratory exam: PRESENT: BiPAP in use, clear to auscultation cas, decreased breath sounds - at lung bases. Cardiovascular exam: PRESENT: Irregularly Irregular rhythm. ABSENT: diastolic murmur, rubs, systolic murmur. therapeutic activities services worker revealed A.Fib rhythm with controlled rate. Vascular exam: PRESENT: normal capillary refill. ABSENT: pallor GI/Abdominal exam: PRESENT: normal bowel sounds, soft. ABSENT: distended, guarding, mass, organomegaly, rebound, tenderness Extremities exam: ABSENT: pedal edema Musculoskeletal exam: PRESENT: normal inspection Neurological exam: PRESENT: altered with episodes of confusion. Psychiatric exam: PRESENT: other - limited due to current state of sedation Skin exam: PRESENT: dry, warm Results Laboratory Results: 06/30/18 06:00 07/02/18 05:52 07/01/18 07/02/18 05:20 05:52 Sodium 137.3 Potassium 4.7 Chloride 102 Carbon Dioxide 28 Anion Gap 7 BUN 4 L Creatinine 0.42 L Est GFR ( Amer) > 60 Est GFR (Non-Af Amer) > 60 Glucose 99 Calcium 7.8 L Magnesium 1.4 L Impressions: KUB X-Ray 06/11/18 00:00 IMPRESSION: NO RADIOGRAPHIC EVIDENCE FOR ACUTE ABDOMINAL DISEASE. Head CT 06/14/18 00:00 IMPRESSION: Bilateral low-density areas in the white matter that may be related to posterior reversible encephalopathy syndrome. Recommend correlation with patient's history and follow-up MRI with and without contrast could better evaluate as other underlying lesions are not excluded on this exam. Chest/Abdomen CTA 06/26/18 00:00 IMPRESSION: Large bilateral pleural effusions with bilateral airspace disease in the lower lobes likely atelectasis Multiple acute anterior bilateral rib fractures likely post resuscitation with chest compressions Thoracentesis Ultrasound 06/29/18 08:00 IMPRESSION: SUCCESSFUL THORACENTESIS USING ULTRASOUND GUIDANCE. Chest X-Ray 06/30/18 00:00 IMPRESSION: Stable radiographic appearance of the chest demonstrating right apical and left lower lobe pulmonary opacities with a small left-sided pleural effusion. Stable vascular access catheter. Chest Ultrasound 07/02/18 00:00 IMPRESSION: Small residual left pleural effusion Assessment & Plan - Diagnosis (1) SIRS with acute organ dysfunction due to infectious process Is this a current diagnosis for this admission?: Yes (2) Lobar pneumonia, unspecified organism Is this a current diagnosis for this admission?: Yes (3) Grecia infection, disseminated Is this a current diagnosis for this admission?: Yes (4) Anemia due to infection Is this a current diagnosis for this admission?: Yes (5) Decompensated COPD with exacerbation (chronic obstructive pulmonary disease) Is this a current diagnosis for this admission?: Yes Plan: I will request pulmonary consultation with Dr. Brenner for review of her BiPAP dependency and possible use of Trilogy device for respiratory support. (6) Chronic atrial fibrillation Is this a current diagnosis for this admission?: Yes (7) HTN (hypertension) Qualifiers: Hypertension type: essential hypertension Qualified Code(s): I10 - Essential (primary) hypertension Is this a current diagnosis for this admission?: Yes Plan: Increase Amlodipine to 5 mg po bid. (8) HLD (hyperlipidemia) Qualifiers: Hyperlipidemia type: pure hypercholesterolemia Qualified Code(s): E78.00 - Pure hypercholesterolemia, unspecified Is this a current diagnosis for this admission?: Yes (9) GERD (gastroesophageal reflux disease) Qualifiers: Esophagitis presence: esophagitis presence not specified Qualified Code(s) : K21.9 - Gastro-esophageal reflux disease without esophagitis Is this a current diagnosis for this admission?: Yes (10) Anxiety Is this a current diagnosis for this admission?: Yes (11) Depression Qualifiers: Depression Type: major depressive disorder Major depression recurrence: recurrent Active/Remission status: currently active Psychotic features: without psychotic features Is this a current diagnosis for this admission?: Yes (12) Acute delirium Is this a current diagnosis for this admission?: Yes (13) Electrolyte imbalance Is this a current diagnosis for this admission?: Yes (14) Tonic-clonic seizure disorder Is this a current diagnosis for this admission?: Yes (15) Bilateral pleural effusion Is this a current diagnosis for this admission?: Yes Plan: She is schedule for thoracentesis tomorrow. - Time Time Spent with patient: 25-34 minutes Medications reviewed and adjusted accordingly: Yes Anticipated discharge: SNF, Acute Rehab Within: Other - Inpatient Certification Based on my medical assessment, after consideration of the patient's comorbidities, presenting symptoms, or acuity I expect that the services needed warrant INPATIENT care.: Yes I certify that my determination is in accordance with my understanding of Medicare's requirements for reasonable and necessary INPATIENT services [42 CFR 412.3e].: Yes Medical Necessity: Need Close Monitoring Due to Risk of Patient Decompensation, Need For Continuous Telemetry Monitoring, Risk of Complication if Not Cared For in Hospital Post Hospital Care: D/C or Transfer Summary - Plan Summary Plan Summary: Increase Amlodipine to 5 mg po bid. Maintain on IV Vasotec use for sbp > 140mmHg. Restart on Haloperidol 0.25 mg po bid. Continue all other current medication management
[2018-07-02] MEDS ORDERED: FUROSEMIDE 20 MG TABLET PO ONE (19:30)
[2018-07-02] MEDS ORDERED: MIDAZOLAM 2 MG/2 ML INJ ONE (19:38)
[2018-07-02 19:45] LABS: ARTERIAL BLOOD BASE EXCESS 7.1 mmol/L; ARTERIAL BLOOD FIO2 30%; ARTERIAL BLOOD H2CO3 1.78 mmol/L (1.05-1.35); ARTERIAL BLOOD HCO3 33.9 mmol/L (20-26); ARTERIAL BLOOD O2 SATURATION 92.9 % (94-98); ARTERIAL BLOOD PCO2 59.3 mmHg (35-45); ARTERIAL BLOOD PH 7.38 (7.35-7.45); ARTERIAL BLOOD PO2 68.7 mmHg (80-100); ARTERIAL BLOOD TOTAL CO2 35.7 mmol/L (21-25)
[2018-07-02] MEDS ORDERED: PROPOFOL INJ 200 MG/20 ML VIAL IV ONE (19:55)
[2018-07-02] MEDS ORDERED: MIDAZOLAM HCL 50 MG/100 ML RTUINJ ONE (20:06)
--- NOTE | 2018-07-02 20:26 | RADIOLOGY REPORT (SQ) ---
EXAM DESCRIPTION: CHEST SINGLE VIEW COMPLETED DATE/TIME: 07/02/2018 8:14 pm REASON FOR STUDY: Respiratory distress; on ventilator COMPARISON: 06/30/2018 EXAM PARAMETERS: NUMBER OF VIEWS: One view TECHNIQUE: Single frontal radiograph of the chest. RADIATION DOSE: N/A LIMITATIONS: None. FINDINGS: TEMPORARY SUPPORT DEVICES:ETT in expected location. Central venous access catheter tip i s in expected location. LUNGS AND PLEURA: Improved aeration of the left base. Persistent right apical opacities. Small left effusion. No masses. No pneumothorax. MEDIASTINUM AND HILAR STRUCTURES: No masses. Contour normal. HEART AND VASCULAR STRUCTURES: Heart normal in size. normal vascularity. Aorta normal for age. BONES: No acute findings. OTHER: No other significant finding. IMPRESSION: Improved aeration left base. Persistent right apical opacities. SUPPORT DEVICE(S) IN EXPECTED LOCATIONS. TECHNICAL DOCUMENTATION: JOB ID: [id number] [employer]- All Rights Reserved Reading location - IP/workstation name: [email or web address]
[2018-07-02 20:31] LABS: ABSOLUTE BASOPHILS # (AUTO) 0.1 10^3/uL (0.0-0.2); ABSOLUTE EOSINOPHILS # (AUTO) 0.5 10^3/uL (0.0-0.6); ABSOLUTE LYMPHOCYTES (AUTO) 1.6 10^3/uL (0.5-4.7); ABSOLUTE NEUT (AUTO) 5.2 10^3/uL (1.7-8.2); BASOPHILS % (AUTO) 0.8 % (0-2); EOSINOPHILS % (AUTO) 5.7 % (0-6); HEMATOCRIT 31.7 % (36.0-47.0); HEMOGLOBIN 10.3 g/dL (12.0-15.5); LYMPHOCYTES % (AUTO) 18.7 % (13-45); MEAN CORPUSCULAR HEMOGLOBIN 25.7 pg (27.0-33.4); MEAN CORPUSCULAR HGB CONC 32.6 g/dL (32.0-36.0); MEAN CORPUSCULAR VOLUME 79 fl (80-97); PLATELET COUNT 193 10^3/uL (150-450); RED BLOOD COUNT 4.02 10^6/uL (3.72-5.28); RED CELL DISTRIBUTION WIDTH 21.5 % (11.5-14.0); SEGMENTED NEUTROPHILS % (AUTO) 62.8 % (42-78); TOTAL CELLS COUNTED % (AUTO) 100 %; WHITE BLOOD COUNT 8.3 10^3/uL (4.0-10.5)
[2018-07-02] MEDS ORDERED: PHARMACY COMMUNICATION ORDER MC NR (20:45)
[2018-07-02 20:54] LABS: ALANINE AMINOTRANSFERASE 23 U/L (9-52); ALBUMIN 2.6 g/dL (3.5-5.0); ALKALINE PHOSPHATASE 159 U/L (38-126); ANION GAP 7 (5-19); ASPARTATE AMINO TRANSFERASE 36 U/L (14-36); BILIRUBIN,DIRECT 0.3 mg/dL (0.0-0.4); BILIRUBIN,TOTAL 0.4 mg/dL (0.2-1.3); BLOOD UREA NITROGEN 4 mg/dL (7-20); CALCIUM 7.8 mg/dL (8.4-10.2); CARBON DIOXIDE 31 mmol/L (22-30); CHLORIDE 100 mmol/L (98-107); GLUCOSE 109 mg/dL (75-110); POTASSIUM 4.6 mmol/L (3.6-5.0); SODIUM 137.5 mmol/L (137-145); TOTAL PROTEIN 5.6 g/dL (6.3-8.2)
[2018-07-02] MEDS ORDERED: NOREPINEPHRINE BITARTRATE INJ/PF 4 MG/4 ML SDV IV ONE (20:57)
[2018-07-02 21:05] LABS: TROPONIN I 0.024 ng/mL
[2018-07-02 21:25] LABS: ARTERIAL BLOOD BASE EXCESS 5.9 mmol/L; ARTERIAL BLOOD H2CO3 1.65 mmol/L (1.05-1.35); ARTERIAL BLOOD HCO3 32.1 mmol/L (20-26); ARTERIAL BLOOD O2 SATURATION 97.8 % (94-98); ARTERIAL BLOOD PCO2 54.9 mmHg (35-45); ARTERIAL BLOOD PH 7.39 (7.35-7.45); ARTERIAL BLOOD PO2 107.4 mmHg (80-100); ARTERIAL BLOOD TOTAL CO2 33.8 mmol/L (21-25)
[2018-07-02 21:26] LABS: ARTERIAL BLOOD FIO2 40%
[2018-07-02] MEDS ORDERED: CLONAZEPAM 1 MG TABLET NG SCH (22:00)
[2018-07-02] MEDS ORDERED: AMLODIPINE BESYLATE 5 MG TABLET PO SCH (22:00)
[2018-07-02] MEDS ORDERED: HALOPERIDOL 0.5 MG TABLET PO SCH (22:00)
[2018-07-02] MEDS ORDERED: AMLODIPINE BESYLATE 5 MG TABLET NG SCH (22:00)
[2018-07-02] MEDS: MIDAZOLAM HCL 50 MG/100 ML RTUINJ IV PRN (22:56)
[2018-07-02] MEDS: DEXTROSE 5%-WATER 250 ML with NOREPINEPHRINE BITARTRATE 4 MG IV PRN ×2 (22:57)
[2018-07-02] MEDS: PROPOFOL 1,000 MG/100 ML INFUS..BTL IV PRN (22:59)
[2018-07-02] MEDS: PHENYTOIN 100 MG/4 ML SUSP NG SCH (23:07)
[2018-07-02] MEDS: GABAPENTIN 400 MG CAPSULE NG SCH (23:07)
[2018-07-03 00:28] LABS: APPEARANCE,URINE SLIGHTLY-CLOUDY; BILIRUBIN,URINE NEGATIVE (NEGATIVE); COLOR,URINE YELLOW; GLUCOSE, URINE NEGATIVE (NEGATIVE); KETONES,URINE TRACE mg/dL (NEGATIVE); LEUKOCYTE ESTERASE,URINE NEGATIVE (NEGATIVE); NITRITE,URINE NEGATIVE (NEGATIVE); PROTEIN,URINE NEGATIVE (NEGATIVE); URINE SPECIFIC GRAVITY 1.005; UROBILINOGEN,URINE NEGATIVE mg/dL (<2.0)
[2018-07-03] MEDS: IPRATROPIUM/ALBUTEROL 0.5-2.5 MG/3 ML AMPUL NEB SCH ×4 (01:08→19:22)
[2018-07-03 05:45] LABS: ABSOLUTE BASOPHILS # (AUTO) 0.1 10^3/uL (0.0-0.2); ABSOLUTE EOSINOPHILS # (AUTO) 0.7 10^3/uL (0.0-0.6); ABSOLUTE LYMPHOCYTES (AUTO) 2.2 10^3/uL (0.5-4.7); ABSOLUTE MONOCYTES (AUTO) 1.2 10^3/uL (0.1-1.4); ABSOLUTE NEUT (AUTO) 4.9 10^3/uL (1.7-8.2); BASOPHILS % (AUTO) 1.2 % (0-2); EOSINOPHILS % (AUTO) 7.4 % (0-6); HEMATOCRIT 31.1 % (36.0-47.0); HEMOGLOBIN 10.1 g/dL (12.0-15.5); LYMPHOCYTES % (AUTO) 24.6 % (13-45); MEAN CORPUSCULAR HEMOGLOBIN 25.3 pg (27.0-33.4); MEAN CORPUSCULAR HGB CONC 32.4 g/dL (32.0-36.0); MEAN CORPUSCULAR VOLUME 78 fl (80-97); MONOCYTES % (AUTO) 13.1 % (3-13); PLATELET COUNT 220 10^3/uL (150-450); RED BLOOD COUNT 3.97 10^6/uL (3.72-5.28); RED CELL DISTRIBUTION WIDTH 21.6 % (11.5-14.0); SEGMENTED NEUTROPHILS % (AUTO) 53.7 % (42-78); TOTAL CELLS COUNTED % (AUTO) 100 %
[2018-07-03 05:47] LABS: ARTERIAL BLOOD BASE EXCESS 5.3 mmol/L; ARTERIAL BLOOD H2CO3 1.14 mmol/L (1.05-1.35); ARTERIAL BLOOD HCO3 28.8 mmol/L (20-26); ARTERIAL BLOOD O2 SATURATION 97.9 % (94-98); ARTERIAL BLOOD PCO2 37.9 mmHg (35-45); ARTERIAL BLOOD PO2 97.8 mmHg (80-100); ARTERIAL BLOOD TOTAL CO2 29.9 mmol/L (21-25)
[2018-07-03 05:52] LABS: ARTERIAL BLOOD FIO2 40
[2018-07-03 06:03] LABS: ANION GAP 9 (5-19); BLOOD UREA NITROGEN 4 mg/dL (7-20); CALCIUM 7.7 mg/dL (8.4-10.2); CARBON DIOXIDE 27 mmol/L (22-30); CHLORIDE 103 mmol/L (98-107); GLUCOSE 131 mg/dL (75-110); POTASSIUM 3.7 mmol/L (3.6-5.0); SODIUM 138.5 mmol/L (137-145)
[2018-07-03] MEDS: GABAPENTIN 400 MG CAPSULE NG SCH ×3 (06:11→22:17)
[2018-07-03] MEDS: LANSOPRAZOLE 30 MG TAB.RAP.DR PO SCH (06:11)
[2018-07-03] MEDS: PHENYTOIN 100 MG/4 ML SUSP NG SCH ×3 (06:12→22:17)
[2018-07-03] MEDS: PROPOFOL 1,000 MG/100 ML INFUS..BTL IV PRN (06:12)
[2018-07-03] MEDS: NORMAL SALINE 1000 ML 1,000 ML IV PRN (06:12)
[2018-07-03] MEDS: DEXTROSE 5%-WATER 250 ML with NOREPINEPHRINE BITARTRATE 4 MG IV PRN ×8 (06:25→23:37)
--- NOTE | 2018-07-03 08:21 | RADIOLOGY REPORT (SQ) ---
EXAM DESCRIPTION: KUB/ABDOMEN (SINGLE VIEW) COMPLETED DATE/TIME: 07/02/2018 10:50 pm REASON FOR STUDY: Check Placement of NG Tube COMPARISON: CT angio chest 06/26/2018 Abdominal films 06/11/2018 AP chest 07/03/2018 NUMBER OF VIEWS: One view. TECHNIQUE: Supine radiographic image of the abdomen acquired. LIMITATIONS: None. FINDINGS: A nasogastric tube is present with the tip and side port in the stomach. Woodward catheter d rains the bladder. BOWEL GAS PATTERN: Grossly nonobstructive bowel gas pattern. CALCIFICATIONS: Calcified pelvic phleboliths. Arterial vascular calcifications. SOFT TISSUES: No gross mass or suggestion of organomegaly. HARDWARE: Right hip replacement BONES: Multilevel lumbar compression deformities OTHER: No other significant finding. IMPRESSION: Nasogastric tube tip and side port in the stomach. Grossly nonobstructive bowel gas pattern TECHNICAL DOCUMENTATION: JOB ID: [id number] [employer]- All Rights Reserved Reading location - IP/workstation name: [email or web address]
--- NOTE | 2018-07-03 08:23 | RADIOLOGY REPORT (SQ) ---
EXAM DESCRIPTION: CHEST SINGLE VIEW COMPLETED DATE/TIME: 07/02/2018 10:50 pm REASON FOR STUDY: on ventilator; ETube placement adjustment COMPARISON: CT chest 06/26/2018 Chest films 06/29/2018, 06/30/2018, 07/02/2018 EXAM PARAMETERS: NUMBER OF VIEWS: One view. TECHNIQUE: Single frontal radiographic view of the chest acquired. RADIATION DOSE: NA LIMITATIONS: None. FINDINGS: LUNGS AND PLEURA: Trace pleural fluid in the lateral costophrenic sulci. Diffuse pulmonary vascular prominence. Stable minimal residual alveolar and interstitial infiltrate in the right upper lobe. No pneumothorax MEDIASTINUM AND HILAR STRUCTURES: No masses. Contour normal. HEART AND VASCULAR STRUCTURES: Heart normal in size. Normal vasculature. BONES: No acute findings. HARDWARE: Endotracheal tube tip 3 cm above the jenny. Nasogastric tube tip and side port in the sto mach. Right jugular central line tip superior vena cava OTHER: No other significant finding. IMPRESSION: Tubes and lines in good positioning Stable trace bilateral pleural effusions, pulmonary vascular congestion, and minimal right upper lobe infiltrate TECHNICAL DOCUMENTATION: JOB ID: [id number] [employer]- All Rights Reserved Reading location - IP/workstation name: [email or web address]
--- NOTE | 2018-07-03 08:25 | RADIOLOGY REPORT (SQ) ---
EXAM DESCRIPTION: CHEST SINGLE VIEW COMPLETED DATE/TIME: 07/03/2018 6:47 am REASON FOR STUDY: on ventilator COMPARISON: CT chest 06/26/2018 AP chest 06/30/2018, 07/02/2018 2242 hours EXAM PARAMETERS: NUMBER OF VIEWS: One view. TECHNIQUE: Single frontal radiographic view of the chest acquired. RADIATION DOSE: NA LIMITATIONS: None. FINDINGS: LUNGS AND PLEURA: Decrease in pulmonary vascular congestion. Trace left pleural fluid in the lateral costophrenic sulcus. Unchanged alveolar and interstitial right upper lobe infiltrate. N o pneumothorax MEDIASTINUM AND HILAR STRUCTURES: No masses. Contour normal. HEART AND VASCULAR STRUCTURES: Heart normal in size. Normal vasculature. BONES: No acute findings. Multiple old healed left posterior rib fractures HARDWARE: Endotracheal tube, nasogastric tube, right jugular central line in good positioning OTHER: No other significant finding. IMPRESSION: Decrease in pulmonary vascular congestion compared to yesterday TECHNICAL DOCUMENTATION: JOB ID: [id number] [employer]- All Rights Reserved Reading location - IP/workstation name: [email or web address]
--- NOTE | 2018-07-03 08:31 | PDOC PROGRESS REPORT ---
Subjective Progress Note for:: 07/03/18 Subjective:: Patient was transferred to ICU due to worsening work of breathing with tachypnea and dependency of high pressure BiPAP support. Currently sedated and vent supported. Tolerating enteral tube feeding. No reported fever. Reason For Visit: ACUTE RESPIRATORY FAILURE; VENTILATOR Physical Exam Vital Signs: Temp Pulse Resp BP Pulse Ox 98.4 F 58 L 20 127/58 H 100 07/03/18 06:00 07/03/18 07:00 07/03/18 08:00 07/03/18 07:59 07/03/18 08:00 Intake & Output 07/02/18 07/03/18 07/04/18 06:59 06:59 06:59 Intake Total 1290 1807 Output Total 1300 700 Balance -10 1107 Weight 69.5 kg 64.4 kg Physical Exam: Sedated on ventilatory support. ET and OG tubes in situ. Head exam: PRESENT: atraumatic, normocephalic Eye exam: PRESENT: conjunctiva pink, EOMI, PERRLA. ABSENT: scleral icterus Ear exam: PRESENT: normal external ear exam Mouth exam: PRESENT: moist - fairly moist Respiratory exam: PRESENT: clear to auscultation cas, decreased breath sounds - at lung bases Cardiovascular exam: PRESENT: RRR. ABSENT: diastolic murmur, rubs, systolic murmur Vascular exam: PRESENT: normal capillary refill. ABSENT: pallor GI/Abdominal exam: PRESENT: normal bowel sounds, soft. ABSENT: distended, guarding, mass, organolmegaly, rebound, tenderness Rectal exam: PRESENT: deferred Extremities exam: ABSENT: pedal edema Musculoskeletal exam: PRESENT: normal inspection Neurological exam: PRESENT: altered - Sedated on Midazolam Skin exam: PRESENT: dry, warm. ABSENT: cyanosis, rash Results Laboratory Results: 07/03/18 05:35 07/03/18 05:35 07/02/18 07/02/18 07/02/18 19:15 20:22 20:22 WBC 8.3 RBC 4.02 Hgb 10.3 L Hct 31.7 L MCV 79 L MCH 25.7 L MCHC 32.6 RDW 21.5 H Plt Count 193 Seg Neutrophils % 62.8 Lymphocytes % 18.7 Monocytes % 12.0 Eosinophils % 5.7 Basophils % 0.8 Absolute Neutrophils 5.2 Absolute Lymphocytes 1.6 Absolute Monocytes 1.0 Absolute Eosinophils 0.5 Absolute Basophils 0.1 Carbonic Acid 1.78 H HCO3/H2CO3 Ratio 19:1 ABG pH 7.38 ABG pCO2 59.3 H ABG pO2 68.7 L ABG HCO3 33.9 H ABG O2 Saturation 92.9 L ABG Base Excess 7.1 FiO2 30% Sodium 137.5 Potassium 4.6 Chloride 100 Carbon Dioxide 31 H Anion Gap 7 BUN 4 L Creatinine 0.41 L Est GFR ( Amer) > 60 Est GFR (Non-Af Amer) > 60 Glucose 109 Calcium 7.8 L Total Bilirubin 0.4 AST 36 ALT 23 Alkaline Phosphatase 159 H Total Protein 5.6 L Albumin 2.6 L Urine Color Urine Appearance Urine pH Ur Specific [place] Urine Protein Urine Glucose (UA) Urine Ketones Urine Blood Urine Nitrite Ur Leukocyte Esterase Urine WBC (Auto) Urine RBC (Auto) 07/02/18 07/03/18 07/03/18 21:05 00:00 05:35 WBC RBC Hgb Hct MCV MCH MCHC RDW Plt Count Seg Neutrophils % Lymphocytes % Monocytes % Eosinophils % Basophils % Absolute Neutrophils Absolute Lymphocytes Absolute Monocytes Absolute Eosinophils Absolute Basophils Carbonic Acid 1.65 H 1.14 HCO3/H2CO3 Ratio 19:1 25:1 ABG pH 7.39 7.50 H ABG pCO2 54.9 H 37.9 ABG pO2 107.4 H 97.8 ABG HCO3 32.1 H 28.8 H ABG O2 Saturation 97.8 97.9 ABG Base Excess 5.9 5.3 FiO2 40% 40 Sodium Potassium Chloride Carbon Dioxide Anion Gap BUN Creatinine Est GFR ( Amer) Est GFR (Non-Af Amer) Glucose Calcium Total Bilirubin AST ALT Alkaline Phosphatase Total Protein Albumin Urine Color YELLOW Urine Appearance SLIGHTLY-CLOUDY Urine pH 7.0 Ur Specific [place] 1.005 Urine Protein NEGATIVE Urine Glucose (UA) NEGATIVE Urine Ketones TRACE H Urine Blood NEGATIVE Urine Nitrite NEGATIVE Ur Leukocyte Esterase NEGATIVE Urine WBC (Auto) 16 Urine RBC (Auto) 0 07/03/18 07/03/18 05:35 05:35 WBC 9.0 RBC 3.97 Hgb 10.1 L Hct 31.1 L MCV 78 L MCH 25.3 L MCHC 32.4 RDW 21.6 H Plt Count 220 Seg Neutrophils % 53.7 Lymphocytes % 24.6 Monocytes % 13.1 H Eosinophils % 7.4 H Basophils % 1.2 Absolute Neutrophils 4.9 Absolute Lymphocytes 2.2 Absolute Monocytes 1.2 Absolute Eosinophils 0.7 H Absolute Basophils 0.1 Carbonic Acid HCO3/H2CO3 Ratio ABG pH ABG pCO2 ABG pO2 ABG HCO3 ABG O2 Saturation ABG Base Excess FiO2 Sodium 138.5 Potassium 3.7 Chloride 103 Carbon Dioxide 27 Anion Gap 9 BUN 4 L Creatinine 0.45 L Est GFR ( Amer) > 60 Est GFR (Non-Af Amer) > 60 Glucose 131 H Calcium 7.7 L Total Bilirubin AST ALT Alkaline Phosphatase Total Protein Albumin Urine Color Urine Appearance Urine pH Ur Specific [place] Urine Protein Urine Glucose (UA) Urine Ketones Urine Blood Urine Nitrite Ur Leukocyte Esterase Urine WBC (Auto) Urine RBC (Auto) 07/02/18 20:22 Troponin I 0.024 NT-Pro-B Natriuret Pep 2160 H Impressions: Head CT 06/14/18 00:00 IMPRESSION: Bilateral low-density areas in the white matter that may be related to posterior reversible encephalopathy syndrome. Recommend correlation with patient's history and follow-up MRI with and without contrast could better evaluate as other underlying lesions are not excluded on this exam. Chest/Abdomen CTA 06/26/18 00:00 IMPRESSION: Large bilateral pleural effusions with bilateral airspace disease in the lower lobes likely atelectasis Multiple acute anterior bilateral rib fractures likely post resuscitation with chest compressions Thoracentesis Ultrasound 06/29/18 08:00 IMPRESSION: SUCCESSFUL THORACENTESIS USING ULTRASOUND GUIDANCE. Chest Ultrasound 07/02/18 00:00 IMPRESSION: Small residual left pleural effusion KUB X-Ray 07/02/18 20:37 IMPRESSION: Nasogastric tube tip and side port in the stomach. Grossly nonobstructive bowel gas pattern Assessment & Plan - Diagnosis (1) Acute and chronic respiratory failure with hypercapnia Is this a current diagnosis for this admission?: Yes Plan: See attending physician orders. Change feeding formula to Oxepa at 20 mL/hour and advance to optimize nutritional needs. (2) SIRS with acute organ dysfunction due to infectious process Is this a current diagnosis for this admission?: Yes (3) Lobar pneumonia, unspecified organism Is this a current diagnosis for this admission?: Yes (4) Grecia infection, disseminated Is this a current diagnosis for this admission?: Yes (5) Anemia due to infection Is this a current diagnosis for this admission?: Yes (6) Decompensated COPD with exacerbation (chronic obstructive pulmonary disease) Is this a current diagnosis for this admission?: Yes (7) Chronic atrial fibrillation Is this a current diagnosis for this admission?: Yes (8) HTN (hypertension) Qualifiers: Hypertension type: essential hypertension Qualified Code(s): I10 - Essential (primary) hypertension Is this a current diagnosis for this admission?: Yes (9) HLD (hyperlipidemia) Qualifiers: Hyperlipidemia type: pure hypercholesterolemia Qualified Code(s): E78.00 - Pure hypercholesterolemia, unspecified Is this a current diagnosis for this admission?: Yes (10) GERD (gastroesophageal reflux disease) Qualifiers: Esophagitis presence: esophagitis presence not specified Qualified Code(s) : K21.9 - Gastro-esophageal reflux disease without esophagitis Is this a current diagnosis for this admission?: Yes (11) Anxiety Is this a current diagnosis for this admission?: Yes (12) Depression Qualifiers: Depression Type: major depressive disorder Major depression recurrence: recurrent Active/Remission status: currently active Psychotic features: without psychotic features Is this a current diagnosis for this admission?: Yes (13) Acute delirium Is this a current diagnosis for this admission?: Yes (14) Electrolyte imbalance Is this a current diagnosis for this admission?: Yes (15) Tonic-clonic seizure disorder Is this a current diagnosis for this admission?: Yes (16) Bilateral pleural effusion Is this a current diagnosis for this admission?: Yes - Time Time Spent with patient: 25-34 minutes Medications reviewed and adjusted accordingly: Yes Anticipated discharge: Other - LTAC for ventilator weaning Within: Other - Inpatient Certification Medical Necessity: Need Close Monitoring Due to Risk of Patient Decompensation, Need For IV Fluids, Need For Continuous Telemetry Monitoring, Need for Nebulizer Therapy and Monitoring of Response, Risk of Complication if Not Cared For in Hospital Post Hospital Care: D/C or Transfer Summary - Plan Summary Plan Summary: See attending physician orders.
[2018-07-03] MEDS: DIGOXIN 0.25 MG TABLET NG SCH (09:44)
[2018-07-03] MEDS: PREDNISONE 5 MG TABLET NG SCH (09:44)
[2018-07-03] MEDS: ENOXAPARIN SODIUM INJ 40 MG/0.4 ML DISP.SYRIN SUBCUT SCH (09:44)
[2018-07-03] MEDS: MULTIVIT-STRESS FORMULA/ZINC TABLET NG SCH (09:44)
[2018-07-03] MEDS: CLONAZEPAM 1 MG TABLET NG SCH (09:44)
[2018-07-03] MEDS ORDERED: FUROSEMIDE 20 MG TABLET PO SCH (10:00)
[2018-07-03] MEDS ORDERED: FUROSEMIDE ORAL SOLN 40 MG/5 ML UDCUP NG SCH (10:00)
[2018-07-03] MEDS ORDERED: VALSARTAN 160 MG TABLET NG SCH (10:00)
[2018-07-03] MEDS: MIDAZOLAM HCL 50 MG/100 ML RTUINJ IV PRN (11:52)
[2018-07-03] MEDS: OXYCODONE-ACETAMINOPHEN 5-325 MG TABLET NG PRN (15:05)
[2018-07-03] MEDS: ACETAMINOPHEN SOLN 325 MG/10.15 ML UDCUP NG PRN (15:53)
[2018-07-03] MEDS ORDERED: VANCOMYCIN HCL INJ 1000 MG VIAL IV ONE (19:00)
[2018-07-03] MEDS ORDERED: DIPHENHYDRAMINE HCL 50 MG CAPSULE PO SCH (19:15)
[2018-07-03] MEDS ORDERED: NORMAL SALINE 1000 ML 1,000 ML IV PRN (19:20)
[2018-07-03 19:59] LABS: ABSOLUTE BASOPHILS # (AUTO) 0.1 10^3/uL (0.0-0.2); ABSOLUTE EOSINOPHILS # (AUTO) 0.8 10^3/uL (0.0-0.6); ABSOLUTE LYMPHOCYTES (AUTO) 2.5 10^3/uL (0.5-4.7); BASOPHILS % (AUTO) 1.5 % (0-2); EOSINOPHILS % (AUTO) 8.2 % (0-6); HEMATOCRIT 32.6 % (36.0-47.0); HEMOGLOBIN 10.6 g/dL (12.0-15.5); LYMPHOCYTES % (AUTO) 26.4 % (13-45); MEAN CORPUSCULAR HEMOGLOBIN 25.3 pg (27.0-33.4); MEAN CORPUSCULAR HGB CONC 32.4 g/dL (32.0-36.0); MEAN CORPUSCULAR VOLUME 78 fl (80-97); PLATELET COUNT 268 10^3/uL (150-450); RED BLOOD COUNT 4.18 10^6/uL (3.72-5.28); RED CELL DISTRIBUTION WIDTH 21.9 % (11.5-14.0); SEGMENTED NEUTROPHILS % (AUTO) 52.9 % (42-78); TOTAL CELLS COUNTED % (AUTO) 100 %; WHITE BLOOD COUNT 9.4 10^3/uL (4.0-10.5)
[2018-07-03 20:18] LABS: ANISOCYTOSIS 3+; HYPOCHROMASIA SLIGHT; OVALOCYTES SLIGHT; PLATELET COMMENT ADEQUATE; PLATELET GIANT PRESENT; PLATELET LARGE PRESENT; POIKILOCYTOSIS SLIGHT
[2018-07-03] MEDS ORDERED: IMIPENEM/CILASTATIN SODIUM INJ 500 MG VIAL IV SCH (21:00)
[2018-07-03] MEDS: IMIPENEM/CILASTATIN SODIUM 500 MG in NORMAL SALINE 100 ML IV SCH (22:19)
[2018-07-03] MEDS: VANCOMYCIN HCL 1,000 MG in DEXTROSE 5%-WATER 250 ML IV SCH (22:20)
[2018-07-03] MEDS: DOCUSATE SODIUM 100 MG CAPSULE PO SCH (22:21)
--- NOTE | 2018-07-03 22:22 | RADIOLOGY REPORT (SQ) ---
EXAM DESCRIPTION: CT HEAD WITHOUT COMPLETED DATE/TIME: 07/03/2018 9:50 pm REASON FOR STUDY: Altered mental status; Seizures. COMPARISON: 06/14/2018 TECHNIQUE: Axial images acquired through the brain without intravenous contrast. Images reviewed wi th bone, brain and subdural windows. Additional sagittal and coronal reconstructions were generated. Images stored on PACS. All CT scanners at this facility use dose modulation, iterative reconstruction, and/or weight based d osing when appropriate to reduce radiation dose to as low as reasonably achievable (ALARA). [facility]: Dose Right [facility]: CareDose [facility]: Dose Right [facility]: Teradose 4D [facility]: reBounces RADIATION DOSE: CT Rad equipment meets quality standard of care and radiation dose reduction techniq ues were employed. CTDIvol: 55.2 mGy. DLP: 946 mGy-cm. mGy. LIMITATIONS: None. FINDINGS: VENTRICLES: Normal size and contour. CEREBRUM: No masses. No hemorrhage. No midline shift. No evidence for acute infarction. Normal gra y/white matter differentiation. No areas of low density in the white matter. CEREBELLUM: No masses. No hemorrhage. No alteration of density. No evidence for acute infarction. EXTRAAXIAL SPACES: No fluid collections. No masses. ORBITS AND GLOBE: No intra- or extraconal masses. Normal contour of globe without masses. CALVARIUM: No fracture. PARANASAL SINUSES: No fluid or mucosal thickening. SOFT TISSUES: No mass or hematoma. OTHER: No other significant finding. IMPRESSION: NORMAL BRAIN CT WITHOUT CONTRAST. EVIDENCE OF ACUTE STROKE: NO. COMMENT: Quality ID # [id number]: Final reports with documentation of one or more dose reduction techniques (e.g., Automated exposure control, adjustment of the mA and/or kV according to patient size, use of iterative reconstruction technique) TECHNICAL DOCUMENTATION: JOB ID: [id number] [employer]- All Rights Reserved Reading location - IP/workstation name: [email or web address]
[2018-07-04] MEDS: MIDAZOLAM HCL 50 MG/100 ML RTUINJ IV PRN ×4 (02:02→23:00)
[2018-07-04] MEDS: IMIPENEM/CILASTATIN SODIUM 500 MG in NORMAL SALINE 100 ML IV SCH ×4 (02:03→21:48)
[2018-07-04] MEDS: IPRATROPIUM/ALBUTEROL 0.5-2.5 MG/3 ML AMPUL NEB SCH ×4 (02:39→20:58)
[2018-07-04] MEDS: OXYCODONE-ACETAMINOPHEN 5-325 MG TABLET NG PRN ×2 (03:17→12:03)
[2018-07-04] MEDS: GABAPENTIN 400 MG CAPSULE NG SCH ×3 (06:10→21:48)
[2018-07-04] MEDS: LANSOPRAZOLE 30 MG TAB.RAP.DR NG SCH (06:11)
[2018-07-04] MEDS: PHENYTOIN 100 MG/4 ML SUSP NG SCH ×3 (06:11→21:48)
[2018-07-04 06:23] LABS: ANION GAP 7 (5-19); BLOOD UREA NITROGEN 6 mg/dL (7-20); CALCIUM 7.1 mg/dL (8.4-10.2); CARBON DIOXIDE 28 mmol/L (22-30); CHLORIDE 102 mmol/L (98-107); GLUCOSE 159 mg/dL (75-110); POTASSIUM 3.7 mmol/L (3.6-5.0); SODIUM 136.9 mmol/L (137-145)
[2018-07-04 06:26] LABS: ABSOLUTE BASOPHILS # (AUTO) 0.1 10^3/uL (0.0-0.2); ABSOLUTE EOSINOPHILS # (AUTO) 0.7 10^3/uL (0.0-0.6); ABSOLUTE LYMPHOCYTES (AUTO) 1.5 10^3/uL (0.5-4.7); ABSOLUTE MONOCYTES (AUTO) 0.9 10^3/uL (0.1-1.4); ABSOLUTE NEUT (AUTO) 4.3 10^3/uL (1.7-8.2); BASOPHILS % (AUTO) 1.2 % (0-2); EOSINOPHILS % (AUTO) 9.4 % (0-6); HEMATOCRIT 31.3 % (36.0-47.0); HEMOGLOBIN 10.3 g/dL (12.0-15.5); LYMPHOCYTES % (AUTO) 19.9 % (13-45); MEAN CORPUSCULAR HEMOGLOBIN 25.7 pg (27.0-33.4); MEAN CORPUSCULAR HGB CONC 32.8 g/dL (32.0-36.0); MEAN CORPUSCULAR VOLUME 78 fl (80-97); MONOCYTES % (AUTO) 11.8 % (3-13); PLATELET COUNT 214 10^3/uL (150-450); RED BLOOD COUNT 3.99 10^6/uL (3.72-5.28); RED CELL DISTRIBUTION WIDTH 21.6 % (11.5-14.0); SEGMENTED NEUTROPHILS % (AUTO) 57.7 % (42-78); TOTAL CELLS COUNTED % (AUTO) 100 %; WHITE BLOOD COUNT 7.4 10^3/uL (4.0-10.5)
--- NOTE | 2018-07-04 08:17 | PDOC PROGRESS REPORT ---
Subjective Progress Note for:: 07/04/18 Subjective:: Patient remain intubated and vent support. There was reported episode fever since last clinical evaluation. She remain on IV Primaxin and Vancomycin therapy. Tolerating enteral tube feeding. Reason For Visit: ACUTE RESPIRATORY FAILURE; VENTILATOR Physical Exam Vital Signs: Temp Pulse Resp BP Pulse Ox 97.7 F 63 8 L 107/47 L 100 07/04/18 05:58 07/04/18 02:39 07/04/18 07:23 07/04/18 07:23 07/04/18 07:23 Intake & Output 07/03/18 07/04/18 07/05/18 06:59 06:59 06:59 Intake Total 1807 1628 Output Total 700 1460 50 Balance 1107 168 -50 Weight 64.4 kg 66.1 kg Physical Exam: Sedated on ventilatory support. ET and OG tubes in situ. Head exam: PRESENT: atraumatic, normocephalic Eye exam: PRESENT: conjunctiva pink, EOMI, PERRLA. ABSENT: scleral icterus Ear exam: PRESENT: normal external ear exam Mouth exam: PRESENT: moist - fairly moist Respiratory exam: PRESENT: clear to auscultation cas, decreased breath sounds - at lung bases Cardiovascular exam: PRESENT: RRR. ABSENT: diastolic murmur, rubs, systolic murmur Vascular exam: PRESENT: normal capillary refill. ABSENT: pallor GI/Abdominal exam: PRESENT: normal bowel sounds, soft. ABSENT: distended, guarding, mass, organomegaly, rebound, tenderness Rectal exam: PRESENT: deferred Extremities exam: ABSENT: pedal edema Musculoskeletal exam: PRESENT: normal inspection Neurological exam: PRESENT: altered - Sedated on Midazolam Skin exam: PRESENT: dry, warm. ABSENT: cyanosis, rash Results Laboratory Results: 07/04/18 06:00 07/04/18 06:00 07/03/18 07/04/18 07/04/18 19:20 06:00 06:00 WBC 9.4 7.4 RBC 4.18 3.99 Hgb 10.6 L 10.3 L Hct 32.6 L 31.3 L MCV 78 L 78 L MCH 25.3 L 25.7 L MCHC 32.4 32.8 RDW 21.9 H 21.6 H Plt Count 268 214 Seg Neutrophils % 52.9 57.7 Lymphocytes % 26.4 19.9 Monocytes % 11.0 11.8 Eosinophils % 8.2 H 9.4 H Basophils % 1.5 1.2 Absolute Neutrophils 5.0 4.3 Absolute Lymphocytes 2.5 1.5 Absolute Monocytes 1.0 0.9 Absolute Eosinophils 0.8 H 0.7 H Absolute Basophils 0.1 0.1 Sodium 136.9 L Potassium 3.7 Chloride 102 Carbon Dioxide 28 Anion Gap 7 BUN 6 L Creatinine 0.42 L Est GFR ( Amer) > 60 Est GFR (Non-Af Amer) > 60 Glucose 159 H Calcium 7.1 L 07/02/18 20:22 Troponin I 0.024 NT-Pro-B Natriuret Pep 2160 H Impressions: Chest/Abdomen CTA 06/26/18 00:00 IMPRESSION: Large bilateral pleural effusions with bilateral airspace disease in the lower lobes likely atelectasis Multiple acute anterior bilateral rib fractures likely post resuscitation with chest compressions Thoracentesis Ultrasound 06/29/18 08:00 IMPRESSION: SUCCESSFUL THORACENTESIS USING ULTRASOUND GUIDANCE. Chest Ultrasound 07/02/18 00:00 IMPRESSION: Small residual left pleural effusion KUB X-Ray 07/02/18 20:37 IMPRESSION: Nasogastric tube tip and side port in the stomach. Grossly nonobstructive bowel gas pattern Head CT 07/03/18 21:00 IMPRESSION: NORMAL BRAIN CT WITHOUT CONTRAST. EVIDENCE OF ACUTE STROKE: NO. Assessment & Plan - Diagnosis (1) Acute and chronic respiratory failure with hypercapnia Is this a current diagnosis for this admission?: Yes (2) SIRS with acute organ dysfunction due to infectious process Is this a current diagnosis for this admission?: Yes (3) Lobar pneumonia, unspecified organism Is this a current diagnosis for this admission?: Yes (4) Grecia infection, disseminated Is this a current diagnosis for this admission?: Yes (5) Anemia due to infection Is this a current diagnosis for this admission?: Yes (6) Decompensated COPD with exacerbation (chronic obstructive pulmonary disease) Is this a current diagnosis for this admission?: Yes (7) Chronic atrial fibrillation Is this a current diagnosis for this admission?: Yes (8) HTN (hypertension) Qualifiers: Hypertension type: essential hypertension Qualified Code(s): I10 - Essential (primary) hypertension Is this a current diagnosis for this admission?: Yes (9) HLD (hyperlipidemia) Qualifiers: Hyperlipidemia type: pure hypercholesterolemia Qualified Code(s): E78.00 - Pure hypercholesterolemia, unspecified Is this a current diagnosis for this admission?: Yes (10) GERD (gastroesophageal reflux disease) Qualifiers: Esophagitis presence: esophagitis presence not specified Qualified Code(s) : K21.9 - Gastro-esophageal reflux disease without esophagitis Is this a current diagnosis for this admission?: Yes (11) Anxiety Is this a current diagnosis for this admission?: Yes (12) Depression Qualifiers: Depression Type: major depressive disorder Major depression recurrence: recurrent Active/Remission status: currently active Psychotic features: without psychotic features Is this a current diagnosis for this admission?: Yes (13) Acute delirium Is this a current diagnosis for this admission?: Yes (14) Electrolyte imbalance Is this a current diagnosis for this admission?: Yes (15) Tonic-clonic seizure disorder Is this a current diagnosis for this admission?: Yes (16) Bilateral pleural effusion Is this a current diagnosis for this admission?: Yes - Time Time Spent with patient: 25-34 minutes Medications reviewed and adjusted accordingly: Yes Anticipated discharge: SNF, Acute Rehab Within: Other - Inpatient Certification Based on my medical assessment, after consideration of the patient's comorbidities, presenting symptoms, or acuity I expect that the services needed warrant INPATIENT care.: Yes I certify that my determination is in accordance with my understanding of Medicare's requirements for reasonable and necessary INPATIENT services [42 CFR 412.3e].: Yes Medical Necessity: Need Close Monitoring Due to Risk of Patient Decompensation, Need For IV Fluids, Need For Continuous Telemetry Monitoring, Need for Nebulizer Therapy and Monitoring of Response, Need for IV Antibiotics, Risk of Complication if Not Cared For in Hospital Post Hospital Care: D/C or Transfer Summary - Plan Summary Plan Summary: Continue IV Primaxin and Vancomycin coverage. Follow up on culture findings. Remain on Vent support and enteral tube feeding. Overall prognosis remain guarded.
--- NOTE | 2018-07-04 08:36 | RADIOLOGY REPORT (SQ) ---
EXAM DESCRIPTION: CHEST SINGLE VIEW COMPLETED DATE/TIME: 07/04/2018 5:56 am REASON FOR STUDY: on ventilatorr COMPARISON: 07/03/2018 NUMBER OF VIEWS: One view. TECHNIQUE: Single frontal radiographic image of the chest acquired. LIMITATIONS: None. FINDINGS: LUNGS AND PLEURA: Small pleural effusions unchanged. Right upper lobe airspace disease un changed. No pneumothorax. MEDIASTINUM AND HEART: Stable heart size and mediastinal structures. SUPPORT DEVICES: Appropriate location without change. BONY STRUCTURES: No acute findings. HARDWARE: None. OTHER: No other significant finding. IMPRESSION: Pneumonia or asymmetric edema. No significant change. Reading location - IP/workstation name: [email or web address]
[2018-07-04] MEDS: GUAIFENESIN SYRP 200 MG/10 ML UDC NG PRN (08:38)
[2018-07-04 09:17] LABS: ARTERIAL BLOOD BASE EXCESS 0.8 mmol/L; ARTERIAL BLOOD H2CO3 1.28 mmol/L (1.05-1.35); ARTERIAL BLOOD HCO3 25.8 mmol/L (20-26); ARTERIAL BLOOD O2 SATURATION 97.4 % (94-98); ARTERIAL BLOOD PCO2 42.6 mmHg (35-45); ARTERIAL BLOOD PO2 97.2 mmHg (80-100); ARTERIAL BLOOD TOTAL CO2 27.1 mmol/L (21-25)
[2018-07-04 09:18] LABS: ARTERIAL BLOOD FIO2 35%
[2018-07-04] MEDS: DIPHENHYDRAMINE HCL 50 MG CAPSULE PO SCH ×3 (11:30→21:48)
[2018-07-04] MEDS: CLONAZEPAM 1 MG TABLET NG SCH (12:02)
[2018-07-04] MEDS: MULTIVIT-STRESS FORMULA/ZINC TABLET NG SCH (12:03)
[2018-07-04] MEDS: DIGOXIN 0.25 MG TABLET NG SCH (12:03)
[2018-07-04] MEDS: DOCUSATE SODIUM 100 MG CAPSULE PO SCH ×2 (12:04→17:51)
[2018-07-04] MEDS: ENOXAPARIN SODIUM INJ 40 MG/0.4 ML DISP.SYRIN SUBCUT SCH (12:04)
[2018-07-04] MEDS: PREDNISONE 5 MG TABLET NG SCH (12:12)
--- NOTE | 2018-07-04 15:42 | PROGRESS NOTE E ---
Progress Note NAME: SOHA DORSEY : 1945 AGE: 73Y DATE: 07/02/2018 ROOM: 612 SUBJECTIVE: The patient is a 73-year-old female who came in with acute respiratory failure. Consulted because the patient was in severe distress, breathing about 40-50 breaths per minute with the BiPAP therapy settings of the following: EPAP of 6, minimum pressure support of 10, maximum pressure support of 25, FiO2 of 35%, and the patient is saturating about 90-91. The patient has been tachypneic since this morning, running up to 35 breaths per minute on the BiPAP. The patient's nurse stated that patient has been on BiPAP for the last 5 days. Today the patient is breathing about 35-40. Tried to titer on BiPAP avaps providing tidal volume. The patient still tachypneic, breathing about 40-50. Saturation has been sustained at 91-93%. Anesthesia was called and notified for endotracheal intubation. Performed one attempt, but, the vocal cords were markedly anteriorly displaced; anesthesia cardiac sonographer provided the back up and was at bedside. There was no fever, chills, no vomiting. The patient appeared disoriented, confused. The patient had 2 seizures last night. The patient had thoracentesis about 2-3 days ago, provided relief. Chest ultrasound done today showed a small amount of pleural effusion. The patient was scheduled for ultrasound-guided thoracentesis left side tomorrow. However, I canceled the thoracentesis because the pleural effusion is very small. The patient did not require it. The patient was intubated and mechanically ventilated and transferred to ICU. Spoke to family member. They spoke to the patient's daughter. I am recommending tracheostomy tube placement. The patient needed tracheostomy and later on subsequently transfer to a long-term care facility, and then slowly wean off the ventilator. The patient cannot use the BiPAP for a long time because it can cause fissure, ulcerations, and vomiting, and severe aphagia, and the patient cannot eat because of the BiPAP. In the ICU the patient was started on Versed and propofol was ordered to replace Versed, but propofol was not started. Versed was continued and proprofol drip held when the blood pressure dropped down to 70 mmHg. Levophed was ordered to get the blood pressure stabilized to normal level. The patient is currently saturating about 100%, heart rate of 67. The current blood pressure is 114/47. The patient is on SIMV, rate of 20, tidal volume of 380, based on patient's ideal body weight at 8 mL/kg, and the pressure support of 10, PEEP of 5, FiO2 40%, to be titrated to keep saturation 91-94%. ABG will be performed in an hour. OBJECTIVE: GENERAL/VITAL SIGNS: The patient appeared sedated, afebrile, currently not in apparent respiratory distress while on mechanical ventilator, with a blood pressure of 114/47, heart rate of 87, saturation 100% on the same ventilator settings as described above. EYES: No jaundice or pallor. EARS, NOSE, AND THROAT: No ear drainage. No nasal discharge. HEAD AND NECK: No scalp swelling or neck tenderness. CHEST AND LUNGS: No wheezing. No rhonchi. No coarse crackles. CARDIOVASCULAR: S1, S2 distinct. Normal rate. Regular rhythm. ABDOMEN: Flabby. Positive bowel sounds. Soft, nondistended, nontender. EXTREMITIES: No joint swelling. No cellulitis. IMAGING STUDIES: Reviewed the chest x-ray done today immediately following endotracheal intubation. The endotracheal tube tip was about 1 cm above the jenny. The endotracheal tube was adjusted, withdrawn by 2 cm, and a chest x-ray was ordered to check the endotracheal tube placement. NG tube was also inserted to start the oral tube feeding tonight. LABORATORY DATA: CBC data showed a white count of 8.3, hemoglobin 10.3, hematocrit and platelet count is 193. Chemistry at 8:00 p.m. showed sodium 137, potassium 4.6, chloride 100, CO2 of 31, BUN 4, creatinine of 0.41. Glucose is 116. Calcium is 7.8. Alkaline phosphatase 159. NT-BNP is 2160. Total protein is 5.6. Albumin is 2.6. ASSESSMENT: 1. ACUTE RESPIRATORY FAILURE REQUIRING ENDOTRACHEAL MECHANICAL VENTILATION AND INVASIVE MECHANICAL VENTILATION. The patient failed BiPAP therapy, became very tachypneic and tachycardic while on noninvasive mechanical ventilation. 2. SEVERE COPD. 3. BILATERAL PLEURAL EFFUSION, SMALL. Status post thoracentesis. Most likely due to congestive heart failure. PLAN/RECOMMENDATIONS: 1. Will continue the invasive mechanical ventilation and optimize the ventilator therapy. 2. We will do a CBC, chemistry, chest x-ray, and ABG tomorrow. 3. Optimize hemodynamic support. 4. Optimize COPD therapy. 5. I do not think the patient has pneumonia at this time, but we will send the sputum for culture. 6. Will consider surgical consult tomorrow if the patient remains stable tonight, for possible tracheostomy tube placement. DICTATING PHYSICIAN: ML MARQUIS MD,JACQUIE,MPH [id number] PHY#: [id number] ID: [id number] JOB#: [id number] ACCT: [id number] cc: > MTDD
--- NOTE | 2018-07-04 15:44 | PROGRESS NOTE E ---
Progress Note NAME: SOHA DORSEY : 1945 AGE: 73Y DATE: 07/03/2018 ROOM: 612 SUBJECTIVE: Patient is a 73-year-old female who went into acute respiratory failure yesterday after being on BiPAP for about 5 days. Patient was breathing fast at 40 to 50 breaths per minute, despite the high BiPAP pressure settings. Patient's blood pressure has been low over the last 24 hours. Patient was started on Levophed last night, currently on 8 mcg/min, which seems to have stabilized blood pressure to 100/60. There was no vomiting, no diarrhea. Patient started spiking a temperature last night to 100.4 to 100.6 degrees Fahrenheit. There are very scanty endotracheal tube secretions, but sputum was sent last night. There was no vomiting or diarrhea. White count this morning was normal. Patient is on IV Versed at 2 mcg/hr and IV propofol 30 mcg/min. Patient had some seizure-like episodes this morning, according to nurse RN. Patient tolerated the NG tube feeding at 20 mL/hr OBJECTIVE: GENERAL: Patient appears sedated, slightly febrile at 100.4 degrees Fahrenheit, not in acute respiratory distress, with a temperature again of 100.4, with T-max of 100.6. Blood pressure is 109/53, respirations are 20 mL/hr. Saturation is 98% on SIMV rate of 20, tidal volume 380, pressure support of 10, PEEP of 5, FiO2 of 35%. EYES: No jaundice or pallor. EARS, NOSE AND THROAT: No ear drainage noted. No nasal discharge. CHEST AND LUNGS: No wheezing, no rhonchi. No coarse crackles noted. CARDIOVASCULAR: S1, S2 distinct. Normal rate, regular rhythm. ABDOMEN: Flabby. Positive bowel sounds. Soft, nondistended. EXTREMITIES: No joint swelling. No cellulitis. LABORATORY DATA: CBC done today showed white count of 9, hemoglobin 10.1, hematocrit 31.1 and platelet count of 220,000. ABG done this morning showed pH of 7.5, pCO2 of 37.9, pO2 of 97.8 and oxygen saturation 97.9. Chemistry done this morning showed sodium 138, potassium 3.7, chloride 103, CO2 of 37, anion gap is 9, BUN is 4, creatinine is 0.45. Glucose is 131 and calcium is 7.7. NT-BNP is 2116. Total protein is 5.6, albumin is 2.6. Chest x-ray showed no pneumothorax. Pleural effusion, small on the left side. Endotracheal tube is in place. ASSESSMENT: 1. ACUTE RESPIRATORY FAILURE REQUIRING INVASIVE MECHANICAL VENTILATION IN PATIENT WITH UNDERLYING CHRONIC RESPIRATORY FAILURE. Patient may require tracheostomy tube placement. Discussed the tracheostomy tube placement with patient's this morning. Patient's wants to think about it. Patient may require the tracheostomy tube and may require chronic ventilation for several weeks until she is a little bit stronger. 2. FEVER, WITH A T-MAX OF 100.6. May be an underlying infection, maybe pulmonary. Endotracheal tube secretions were yellowish last night, but scanty. Remain scanty this morning. 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 Will start patient on IV vancomycin and also start patient on IV Primaxin until we have the blood culture and sputum culture results. 3. SEVERE COPD. 4. CONGESTIVE HEART FAILURE WITH BILATERAL PLEURAL EFFUSIONS. 5. PNEUMONIA PLAN AND RECOMMENDATIONS: 1. Continue with ventilator support. 2. Will do a head CT without contrast tonight, due to possible seizure episode this morning. 3. Will schedule patient for EEG tomorrow morning. 4. Will start patient on IV vancomycin 1 gram IV piggyback now. 5. Start Primaxin 5 mg IV piggyback every 6 hours. 6. Will add Benadryl 50 mg per NG tube 2 hours prior to Primaxin infusion. 7. Will do a CBC tonight and blood cultures also tonight and sputum cultures. 8. Will stop the propofol drip tonight and will just keep patient on IV Versed to minimize the hypotensive effect of the medication. DICTATING PHYSICIAN: ML MARQUIS MD,JACQUIE,MPH [id number] PHY#: [id number] ID: [id number] JOB#: [id number] ACCT: [id number] cc: > MTDD
[2018-07-04] MEDS: ACETAMINOPHEN SOLN 325 MG/10.15 ML UDCUP NG PRN (17:52)
[2018-07-04] MEDS: VANCOMYCIN HCL 1,000 MG in DEXTROSE 5%-WATER 250 ML IV SCH (21:49)
[2018-07-04] MEDS: DEXTROSE 5%-WATER 250 ML with NOREPINEPHRINE BITARTRATE 4 MG IV PRN ×2 (21:49)
[2018-07-04] MEDS ORDERED: DEXAMETHASONE SOD PHOSPHATE INJ 4 MG/1 ML VIAL IV ONE (23:18)
[2018-07-05 00:03] LABS: APPEARANCE,URINE SLIGHTLY-CLOUDY; BILIRUBIN,URINE NEGATIVE (NEGATIVE); COLOR,URINE YELLOW; GLUCOSE, URINE 50 mg/dL (NEGATIVE); KETONES,URINE NEGATIVE (NEGATIVE); LEUKOCYTE ESTERASE,URINE NEGATIVE (NEGATIVE); NITRITE,URINE NEGATIVE (NEGATIVE); PROTEIN,URINE NEGATIVE (NEGATIVE); URINE SPECIFIC GRAVITY 1.009; UROBILINOGEN,URINE NEGATIVE mg/dL (<2.0)
--- NOTE | 2018-07-05 00:21 | PROGRESS NOTE E ---
Progress Note NAME: SOHA DORSEY : 1945 AGE: 73Y DATE: 07/04/2018 ROOM: 612 SUBJECTIVE: The patient is a 73-year-old female who came in back to the ICU because of acute respiratory failure requiring invasive mechanical ventilation. The patient was on BiPAP for about 5 days, but did not tolerated, became more tachypneic and thus, eventually, endotracheal intubated and mechanically ventilated. Vital signs have been stable. The patient still requires IV Levophed. The patient is on Versed 10 mg IV piggyback. IV sedation was weaned off this morning and the patient appeared to become agitated in the evening around 6 or 7 p.m. There was no vomiting, no diarrhea. Scanty endotracheal tube secretions. No fever over the last 24 hours. OBJECTIVE: GENERAL: The patient appears sedated, afebrile, not in acute respiratory distress. VITAL SIGNS: Temperature is 99.1 with a T-max of 99.3, blood pressure is 108/58, pulse rate of 66, respiration is 20, oxygen saturation is 98%, FiO2 of 35% on SIMV rate of 20, tidal volume 380, pressure support of 10, PEEP of 5. EYES: There is no jaundice or pallor. EARS, NOSE, AND THROAT: No ear drainage noted. No nasal discharge. Oral tracheal tube in place. CHEST AND LUNGS: No wheezing, no rhonchi, no coarse crackles. CARDIOVASCULAR: S1, S2 distinct. Normal rate and regular rhythm. ABDOMEN: Flabby, positive bowel sounds, soft, nondistended. EXTREMITIES: No joint swelling, no cellulitis. LABORATORY DATA: CBC done today showed a white count of 7.4, hemoglobin is 10.3, hematocrit is 31.3, platelet count is 214. ABG done this morning showed a pH of 7.4, pCO2 is 42.6, pO2 is 97.2, saturation 97.4. Chemistry done this morning showed sodium is 136, potassium 3.7, chloride 107, CO2 is 38, BUN 6, creatinine 0.42, glucose 159, and calcium is 7.1. Blood culture x1 back; growth gram-positive cocci. IMAGING STUDIES: Chest x-ray showed endotracheal tube is in place and no pneumothorax noted. ASSESSMENT: 1. ACUTE RESPIRATORY FAILURE REQUIRING INVASIVE MECHANICAL VENTILATION. 2. HYPOTENSION, PROBABLY DUE TO ADRENAL INSUFFICIENCY. 3. SEVERE COPD MOST LIKELY END-STAGE. 4. HISTORY OF CONGESTIVE HEART FAILURE WITH PLEURAL EFFUSIONS BILATERAL, STATUS POST THORACENTESIS. 5. BACTEREMIA GRAM-POSITIVE COCCI. PLAN: 1. We will continue the IV Primaxin and IV vancomycin for now. 2. We will do cosyntropin stimulation test. 3. We will continue to optimize Levophed to support more dynamic efforts. 4. We will continue optimize nutritional support and ventilator support. 5. We will hold prednisone. 6. We will give patient dexamethasone 4 mg IV. 7. We will consider starting hydrocortisone this morning if indicated based on the cosyntropin stimulation test. DICTATING PHYSICIAN: ML MARQUIS MD,JACQUIE,MPH [id number] PHY#: [id number] ID: [id number] JOB#: [id number] ACCT: [id number] cc: > MTDD
[2018-07-05] MEDS ORDERED: COSYNTROPIN INJ 0.25 MG VIAL ONE (00:54)
[2018-07-05] MEDS ORDERED: COSYNTROPIN INJ 0.25 MG VIAL IV ONE (01:00)
[2018-07-05] MEDS: DIPHENHYDRAMINE HCL 50 MG CAPSULE PO SCH ×4 (01:00→18:22)
[2018-07-05] MEDS: IPRATROPIUM/ALBUTEROL 0.5-2.5 MG/3 ML AMPUL NEB SCH ×4 (02:35→20:02)
[2018-07-05] MEDS: IMIPENEM/CILASTATIN SODIUM 500 MG in NORMAL SALINE 100 ML IV SCH ×4 (03:29→21:42)
[2018-07-05 03:44] LABS: ANION GAP 7 (5-19); BLOOD UREA NITROGEN 9 mg/dL (7-20); CALCIUM 7.2 mg/dL (8.4-10.2); CARBON DIOXIDE 26 mmol/L (22-30); CHLORIDE 103 mmol/L (98-107); GLUCOSE 178 mg/dL (75-110); POTASSIUM 4.5 mmol/L (3.6-5.0)
[2018-07-05] MEDS: MIDAZOLAM HCL 50 MG/100 ML RTUINJ IV PRN ×2 (04:14→21:43)
[2018-07-05] MEDS: LANSOPRAZOLE 30 MG TAB.RAP.DR NG SCH (04:59)
[2018-07-05] MEDS: PHENYTOIN 100 MG/4 ML SUSP NG SCH ×3 (04:59→21:43)
[2018-07-05] MEDS: GABAPENTIN 400 MG CAPSULE NG SCH ×3 (05:00→21:43)
[2018-07-05 05:17] LABS: ABSOLUTE EOSINOPHILS # (AUTO) 0.1 10^3/uL (0.0-0.6); ABSOLUTE LYMPHOCYTES (AUTO) 0.5 10^3/uL (0.5-4.7); ABSOLUTE MONOCYTES (AUTO) 0.3 10^3/uL (0.1-1.4); ABSOLUTE NEUT (AUTO) 4.9 10^3/uL (1.7-8.2); ARTERIAL BLOOD BASE EXCESS 0.4 mmol/L; ARTERIAL BLOOD H2CO3 1.18 mmol/L (1.05-1.35); ARTERIAL BLOOD HCO3 24.9 mmol/L (20-26); ARTERIAL BLOOD O2 SATURATION 97.1 % (94-98); ARTERIAL BLOOD PCO2 39.2 mmHg (35-45); ARTERIAL BLOOD PH 7.42 (7.35-7.45); ARTERIAL BLOOD PO2 91.1 mmHg (80-100); ARTERIAL BLOOD TOTAL CO2 26.1 mmol/L (21-25); BASOPHILS % (AUTO) 0.8 % (0-2); EOSINOPHILS % (AUTO) 1.8 % (0-6); HEMATOCRIT 31.1 % (36.0-47.0); HEMOGLOBIN 10.2 g/dL (12.0-15.5); LYMPHOCYTES % (AUTO) 9.1 % (13-45); MEAN CORPUSCULAR HEMOGLOBIN 25.7 pg (27.0-33.4); MEAN CORPUSCULAR HGB CONC 32.9 g/dL (32.0-36.0); MEAN CORPUSCULAR VOLUME 78 fl (80-97); MONOCYTES % (AUTO) 4.9 % (3-13); PLATELET COUNT 192 10^3/uL (150-450); RED BLOOD COUNT 3.99 10^6/uL (3.72-5.28); RED CELL DISTRIBUTION WIDTH 21.7 % (11.5-14.0); SEGMENTED NEUTROPHILS % (AUTO) 83.4 % (42-78); TOTAL CELLS COUNTED % (AUTO) 100 %; WHITE BLOOD COUNT 5.9 10^3/uL (4.0-10.5)
[2018-07-05 05:18] LABS: ARTERIAL BLOOD FIO2 35%
[2018-07-05 06:01] LABS: OVALOCYTES SLIGHT; PLATELET COMMENT ADEQUATE; POIKILOCYTOSIS SLIGHT
[2018-07-05] MEDS ORDERED: NOREPINEPHRINE BITARTRATE INJ/PF 4 MG/4 ML SDV IV ONE (08:20)
[2018-07-05] MEDS: DEXTROSE 5%-WATER 250 ML with NOREPINEPHRINE BITARTRATE 4 MG IV PRN ×4 (08:55→17:37)
--- NOTE | 2018-07-05 08:55 | RADIOLOGY REPORT (SQ) ---
EXAM DESCRIPTION: CHEST SINGLE VIEW COMPLETED DATE/TIME: 07/05/2018 6:13 am REASON FOR STUDY: ventilator COMPARISON: 07/04/2018 NUMBER OF VIEWS: One view. TECHNIQUE: Single frontal radiographic image of the chest acquired. LIMITATIONS: None. FINDINGS: LUNGS AND PLEURA: Small pleural effusions. Patchy airspace disease in the right upper lob e slightly improved. No pneumothorax. MEDIASTINUM AND HEART: Stable heart size and mediastinal structures. SUPPORT DEVICES: Appropriate location without change. BONY STRUCTURES: No acute findings. HARDWARE: None. OTHER: No other significant finding. IMPRESSION: Slight improvement. No pneumothorax. Reading location - IP/workstation name: [email or web address]
[2018-07-05] MEDS: CLONAZEPAM 1 MG TABLET NG SCH (09:00)
[2018-07-05] MEDS: DIGOXIN 0.25 MG TABLET NG SCH (09:00)
[2018-07-05] MEDS: ENOXAPARIN SODIUM INJ 40 MG/0.4 ML DISP.SYRIN SUBCUT SCH (09:00)
[2018-07-05] MEDS: DOCUSATE SODIUM 100 MG CAPSULE PO SCH ×2 (09:01→17:12)
[2018-07-05] MEDS: MULTIVIT-STRESS FORMULA/ZINC TABLET NG SCH (09:04)
--- NOTE | 2018-07-05 11:28 | EEG PRO FEE REPORT ---
EEG INTERPRETATION [id number] ROOM#: 612 ORDER#: [id number] DATE OF STUDY: 07/04/2018 : 1945 REFERRING MD: ML MARQUIS M.D. MEDICATIONS: Midazolam infusion, Dilantin, Prednisone, Lanoxin, Benadryl, Lovenox, Gabapentin, Colace, DuoNeb, Clonazepam History This is a 73 year old right handed woman with a history of atrial fibrillation, hypertension, COPD, bronchitis, anxiety, hip replacement, seizures, gallbladder surgery, arthritis, UTI, smoking, admitted with pneumonia and sepsis, had seizures with the last one 2 days ago, currently on life support. This EEG was requested for seizures. EEG Interpretation This EEG was recorded in the comatose state. The background was disorganized with a mixture of alpha and theta with some delta, reactive to movement. There was no noted reactivity to passive eye opening and closing. There was no discernable posterior dominant rhythm. There were brief periods of discontinuity. Photic stimulation resulted in no significant changes. There were frequent sharp waves and spikes primarily in the central region {CZ > C3 or C4} with some cherry to the frontal or parietal regions. There were rare independent frontal {F3, F4} and sharp waves. There were no evolving seizure patterns. The EKG showed an irregular rhythm. The patient was noted to move spontaneously on video. EEG Classification 1. Sharp waves and spikes, central, frequent 2. Sharp waves, frontal, rare 3. Disorganization 4. Discontinuity 5. EKG - irregular rhythm EEG Impression This EEG is abnormal there are frequent spikes and multifocal sharp waves primarily in the central regions, rarely in frontal regions. There were no noted seizures. There was discontinuity which could be seen with certain medications {e.g. Midazolam infusion}. The disorganization is consistent with diffuse cerebral dysfunction. The EKG shows an irregular rhythm as noted in the patient history. INTERPRETING PHYSICIAN: DARLING ZAFAR M.D. /: KELLEY TT: [id number] ID: [id number] /: [id number] TD: [id number] JOB: [id number] cc:Kishor NAVA M.D. EUSEBIO DESUYO, M.D. > [facility]
[2018-07-05] MEDS: ACETAMINOPHEN SOLN 325 MG/10.15 ML UDCUP NG PRN (17:24)
--- NOTE | 2018-07-05 17:41 | PDOC PROGRESS REPORT ---
Subjective Progress Note for:: 07/05/18 Subjective:: Patient remain intubated, vent supported and sedated. Tolerating enteral tube feeding. No reported fever. Remain on IV Vancomycin and Primaxin coverage. Follow up on culture findings. EEG suggested diffuse cerebral dysfunction. Reason For Visit: ACUTE RESPIRATORY FAILURE; VENTILATOR Physical Exam Vital Signs: Temp Pulse Resp BP Pulse Ox 98.9 F 444 H 23 H 123/71 100 07/05/18 07:12 07/05/18 07:12 07/05/18 04:08 07/05/18 04:08 07/05/18 04:30 Intake & Output 07/04/18 07/05/18 07/06/18 06:59 06:59 06:59 Intake Total 1978 1526 Output Total 1460 1050 Balance 518 476 Weight 66.1 kg 66.3 kg Physical Exam: Sedated on ventilatory support. ET and OG tubes in situ. Head exam: PRESENT: atraumatic, normocephalic Eye exam: PRESENT: conjunctiva pink, EOMI, PERRLA. ABSENT: scleral icterus Ear exam: PRESENT: normal external ear exam Mouth exam: PRESENT: moist - fairly moist Respiratory exam: PRESENT: clear to auscultation cas, decreased breath sounds - at lung bases Cardiovascular exam: PRESENT: RRR. ABSENT: diastolic murmur, rubs, systolic murmur Vascular exam: PRESENT: normal capillary refill. ABSENT: pallor GI/Abdominal exam: PRESENT: normal bowel sounds, soft. ABSENT: distended, guarding, mass, organomegaly, rebound, tenderness Rectal exam: PRESENT: deferred Extremities exam: ABSENT: pedal edema Musculoskeletal exam: PRESENT: normal inspection Neurological exam: PRESENT: altered - Sedated on Midazolam Skin exam: PRESENT: dry, warm. ABSENT: cyanosis, rash Results Laboratory Results: 07/05/18 05:05 07/05/18 03:10 07/04/18 07/04/18 07/04/18 08:20 17:15 23:52 WBC RBC Hgb Hct MCV MCH MCHC RDW Plt Count Seg Neutrophils % Lymphocytes % Monocytes % Eosinophils % Basophils % Absolute Neutrophils Absolute Lymphocytes Absolute Monocytes Absolute Eosinophils Absolute Basophils Carbonic Acid 1.28 HCO3/H2CO3 Ratio 20:1 ABG pH 7.40 ABG pCO2 42.6 ABG pO2 97.2 ABG HCO3 25.8 ABG O2 Saturation 97.4 ABG Base Excess 0.8 FiO2 35% Sodium Potassium Chloride Carbon Dioxide Anion Gap BUN Creatinine Est GFR ( Amer) Est GFR (Non-Af Amer) Glucose Calcium Urine Color YELLOW Urine Appearance SLIGHTLY-CLOUDY Urine pH 6.0 Ur Specific [place] 1.009 Urine Protein NEGATIVE Urine Glucose (UA) 50 H Urine Ketones NEGATIVE Urine Blood NEGATIVE Urine Nitrite NEGATIVE Ur Leukocyte Esterase NEGATIVE Urine WBC (Auto) 2 Urine RBC (Auto) 0 Stool Occult Blood NEGATIVE 07/05/18 07/05/18 07/05/18 03:10 05:05 05:05 WBC 5.9 RBC 3.99 Hgb 10.2 L Hct 31.1 L MCV 78 L MCH 25.7 L MCHC 32.9 RDW 21.7 H Plt Count 192 Seg Neutrophils % 83.4 H Lymphocytes % 9.1 L Monocytes % 4.9 Eosinophils % 1.8 Basophils % 0.8 Absolute Neutrophils 4.9 Absolute Lymphocytes 0.5 Absolute Monocytes 0.3 Absolute Eosinophils 0.1 Absolute Basophils 0.0 Carbonic Acid 1.18 HCO3/H2CO3 Ratio 21:1 ABG pH 7.42 ABG pCO2 39.2 ABG pO2 91.1 ABG HCO3 24.9 ABG O2 Saturation 97.1 ABG Base Excess 0.4 FiO2 35% Sodium 136.0 L Potassium 4.5 Chloride 103 Carbon Dioxide 26 Anion Gap 7 BUN 9 Creatinine 0.42 L Est GFR ( Amer) > 60 Est GFR (Non-Af Amer) > 60 Glucose 178 H Calcium 7.2 L Urine Color Urine Appearance Urine pH Ur Specific [place] Urine Protein Urine Glucose (UA) Urine Ketones Urine Blood Urine Nitrite Ur Leukocyte Esterase Urine WBC (Auto) Urine RBC (Auto) Stool Occult Blood 07/02/18 20:22 Troponin I 0.024 NT-Pro-B Natriuret Pep 2160 H Impressions: Chest/Abdomen CTA 06/26/18 00:00 IMPRESSION: Large bilateral pleural effusions with bilateral airspace disease in the lower lobes likely atelectasis Multiple acute anterior bilateral rib fractures likely post resuscitation with chest compressions Thoracentesis Ultrasound 06/29/18 08:00 IMPRESSION: SUCCESSFUL THORACENTESIS USING ULTRASOUND GUIDANCE. Chest Ultrasound 07/02/18 00:00 IMPRESSION: Small residual left pleural effusion KUB X-Ray 07/02/18 20:37 IMPRESSION: Nasogastric tube tip and side port in the stomach. Grossly nonobstructive bowel gas pattern Head CT 07/03/18 21:00 IMPRESSION: NORMAL BRAIN CT WITHOUT CONTRAST. EVIDENCE OF ACUTE STROKE: NO. Assessment & Plan - Diagnosis (1) Acute and chronic respiratory failure with hypercapnia Is this a current diagnosis for this admission?: Yes (2) SIRS with acute organ dysfunction due to infectious process Is this a current diagnosis for this admission?: Yes (3) Lobar pneumonia, unspecified organism Is this a current diagnosis for this admission?: Yes (4) G[place]ia infection, disseminated Is this a current diagnosis for this admission?: Yes (5) Anemia due to infection Is this a current diagnosis for this admission?: Yes (6) Decompensated COPD with exacerbation (chronic obstructive pulmonary disease) Is this a current diagnosis for this admission?: Yes (7) Chronic atrial fibrillation Is this a current diagnosis for this admission?: Yes (8) HTN (hypertension) Qualifiers: Hypertension type: essential hypertension Qualified Code(s): I10 - Essential (primary) hypertension Is this a current diagnosis for this admission?: Yes (9) HLD (hyperlipidemia) Qualifiers: Hyperlipidemia type: pure hypercholesterolemia Qualified Code(s): E78.00 - Pure hypercholesterolemia, unspecified Is this a current diagnosis for this admission?: Yes (10) GERD (gastroesophageal reflux disease) Qualifiers: Esophagitis presence: esophagitis presence not specified Qualified Code(s) : K21.9 - Gastro-esophageal reflux disease without esophagitis Is this a current diagnosis for this admission?: Yes (11) Anxiety Is this a current diagnosis for this admission?: Yes (12) Depression Qualifiers: Depression Type: major depressive disorder Major depression recurrence: recurrent Active/Remission status: currently active Psychotic features: without psychotic features Is this a current diagnosis for this admission?: Yes (13) Acute delirium Is this a current diagnosis for this admission?: Yes (14) Electrolyte imbalance Is this a current diagnosis for this admission?: Yes (15) Tonic-clonic seizure disorder Is this a current diagnosis for this admission?: Yes (16) Bilateral pleural effusion Is this a current diagnosis for this admission?: Yes (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 - Time Time Spent with patient: 25-34 minutes Medications reviewed and adjusted accordingly: Yes Anticipated discharge: Other - Inpatient Certification Based on my medical assessment, after consideration of the patient's comorbidities, presenting symptoms, or acuity I expect that the services needed warrant INPATIENT care.: Yes I certify that my determination is in accordance with my understanding of Medicare's requirements for reasonable and necessary INPATIENT services [42 CFR 412.3e].: Yes Medical Necessity: Need Close Monitoring Due to Risk of Patient Decompensation, Need For IV Fluids, Need For Continuous Telemetry Monitoring, Need for Nebulizer Therapy and Monitoring of Response, Need for IV Antibiotics, Risk of Complication if Not Cared For in Hospital Post Hospital Care: D/C [facility] Documentation, D/C or Transfer Summary - Plan Summary Plan Summary: See attending physician orders.
[2018-07-05] MEDS: VANCOMYCIN HCL 1,000 MG in DEXTROSE 5%-WATER 250 ML IV SCH (21:42)
[2018-07-05] MEDS: OXYCODONE-ACETAMINOPHEN 5-325 MG TABLET NG PRN (21:43)
[2018-07-06] MEDS: DEXTROSE 5%-WATER 250 ML with NOREPINEPHRINE BITARTRATE 4 MG IV PRN ×4 (01:59→10:35)
[2018-07-06] MEDS: DIPHENHYDRAMINE HCL 50 MG CAPSULE PO SCH ×4 (01:59→19:47)
[2018-07-06] MEDS: IPRATROPIUM/ALBUTEROL 0.5-2.5 MG/3 ML AMPUL NEB SCH ×4 (02:40→20:36)
[2018-07-06] MEDS: IMIPENEM/CILASTATIN SODIUM 500 MG in NORMAL SALINE 100 ML IV SCH ×4 (03:43→21:40)
[2018-07-06 04:22] LABS: HEMATOCRIT 28.8 % (36.0-47.0); HEMOGLOBIN 9.7 g/dL (12.0-15.5); MEAN CORPUSCULAR HEMOGLOBIN 26.3 pg (27.0-33.4); MEAN CORPUSCULAR HGB CONC 33.6 g/dL (32.0-36.0); MEAN CORPUSCULAR VOLUME 78 fl (80-97); PLATELET COUNT 256 10^3/uL (150-450); RED BLOOD COUNT 3.68 10^6/uL (3.72-5.28); RED CELL DISTRIBUTION WIDTH 22.5 % (11.5-14.0); WHITE BLOOD COUNT 9.4 10^3/uL (4.0-10.5)
[2018-07-06 04:35] LABS: ANION GAP 7 (5-19); BLOOD UREA NITROGEN 11 mg/dL (7-20); CALCIUM 7.2 mg/dL (8.4-10.2); CARBON DIOXIDE 26 mmol/L (22-30); CHLORIDE 104 mmol/L (98-107); GLUCOSE 168 mg/dL (75-110); POTASSIUM 3.7 mmol/L (3.6-5.0); SODIUM 137.4 mmol/L (137-145)
[2018-07-06] MEDS: MIDAZOLAM HCL 50 MG/100 ML RTUINJ IV PRN ×3 (05:19→20:30)
[2018-07-06] MEDS: PHENYTOIN 100 MG/4 ML SUSP NG SCH ×3 (05:19→22:09)
[2018-07-06] MEDS: LANSOPRAZOLE 30 MG TAB.RAP.DR NG SCH (05:19)
[2018-07-06] MEDS: GABAPENTIN 400 MG CAPSULE NG SCH ×3 (05:20→22:10)
--- NOTE | 2018-07-06 09:00 | RADIOLOGY REPORT (SQ) ---
EXAM DESCRIPTION: CHEST SINGLE VIEW COMPLETED DATE/TIME: 07/06/2018 6:32 am REASON FOR STUDY: on ventilator COMPARISON: 07/05/2018 NUMBER OF VIEWS: One view. TECHNIQUE: Single frontal radiographic image of the chest acquired. LIMITATIONS: None. FINDINGS: LUNGS AND PLEURA: Improved aeration in the right lung with better definition of the diaphr agm. No pneumothorax. MEDIASTINUM AND HEART: Stable heart size and mediastinal structures. SUPPORT DEVICES: Appropriate location without change. BONY STRUCTURES: No acute findings. HARDWARE: None. OTHER: No other significant finding. IMPRESSION: Interval improvement. No pneumothorax. Reading location - IP/workstation name: [email or web address]
[2018-07-06] MEDS: CLONAZEPAM 1 MG TABLET NG SCH (10:54)
[2018-07-06] MEDS: MULTIVIT-STRESS FORMULA/ZINC TABLET NG SCH (10:55)
[2018-07-06] MEDS: DIGOXIN 0.25 MG TABLET NG SCH (10:55)
[2018-07-06] MEDS: ENOXAPARIN SODIUM INJ 40 MG/0.4 ML DISP.SYRIN SUBCUT SCH (10:56)
[2018-07-06] MEDS: DOCUSATE SODIUM 100 MG CAPSULE PO SCH ×2 (10:57→17:02)
--- NOTE | 2018-07-06 14:40 | PROGRESS NOTE E ---
Progress Note NAME: SOHA DORSEY : 1945 AGE: 73Y DATE: 07/05/2018 ROOM: 612 SUBJECTIVE: The patient is a 73-year-old female who came in with acute respiratory failure has been endotracheally intubated and invasively mechanically ventilated about 2-3 times during this admission. The patient was weaned off sedation this morning around 9 a.m. It took the patient several hours before the patient was fully awake. When the patient was more awake around 5 p.m. this afternoon, the patient became a bit more agitated and the patient's RN resumed the sedation. The patient was able to wake up but becomes so agitated that sedation was resumed. Blood pressure has been going up and down. Sometime it goes down to 70 mmHg systolic. The patient is on Levophed drip. The patient tolerated NG tube feeding. No vomiting, no diarrhea, and no pain. Temperature spiked to 100.9 tonight with a T-max of 100.9. OBJECTIVE: GENERAL: The patient appeared sedated, slightly febrile, not in apparent respiratory distress. VITAL SIGNS: Blood pressure 135/79, heart rate of 81, respiratory rate of 20-22, saturation is 99% on SIMV rate of 20, tidal volume of 380, pressure support of 10, PEEP of 5. FiO2 about 35%. Patient's peak airway pressure is 24 and with ventilation is 8.2. EYES: No jaundice or pallor. EARS, NOSE, AND THROAT: No ear drainage. Nose; no nasal discharge. HEAD AND NECK: No scalp swelling or tenderness. Neck is supple. CHEST AND LUNGS: No wheezing, no rhonchi, no coarse crackles. CARDIOVASCULAR: S1, S2 distinct. Normal rate and regular rhythm. ABDOMEN: Flabby, positive bowel sounds, soft, nondistended. EXTREMITIES: No joint swelling, no cellulitis. LABORATORY DATA: CBC done today showed a white count of 5.9, hemoglobin of 10.2, and hematocrit of 31.1, platelet count is 192 and no bands noted. ABG done today at 5 a.m. in the morning showed pH of 7.42, pCO2 of 39.2, pO2 is 91, and saturation is 97.1. Chemistry done today showed sodium 136, potassium is 4.5, chloride 103, CO2 is 26, BUN 9, creatinine 0.42, glucose is 128, and calcium is 7.2. B-natriuretic peptide is 2163. Cosyntropin test was normal. The patient's cortisol level responds normally to cosyntropin injections. IMAGING STUDIES: Chest x-ray done today showed slightly increased opacity involving the right middle lobe, but not described in the chest x-ray report. ASSESSMENT: 1. ACUTE ON CHRONIC RESPIRATORY FAILURE REQUIRING INVASIVE MECHANICAL VENTILATION. The patient likely will require tracheostomy tube placement. Family appeared to be hesitating and not amenable to tracheostomy tube placed for tracheostomy, wants to wait it out. The patient has a high risk of getting re-intubated after extubation. We will talk to the family again tomorrow and possibly put a surgical consult for possible tracheostomy tube placement. 2. SEVERE COPD. 3. HISTORY OF CONGESTIVE HEART FAILURE. 4. SUBTLE PULMONARY INFILTRATE RIGHT MIDDLE LOBE AND RIGHT LOWER LOBE POSSIBLY A PNEUMONIC PROCESS ACCOUNTING FOR THE SPIKE IN THE TEMPERATURE. The patient is currently on IV Primaxin and IV vancomycin. Blood cultures positive for gram-positive cocci 1 bottle. Sputum cultures are negative at this time. PLAN AND RECOMMENDATION: 1. Recommend tracheostomy tube placement to family. 2. Continue IV Primaxin and IV vancomycin for now. 3. Continue to optimize ventilator support. 4. Will do sedation vacation tomorrow and subsequently spontaneous breathing trial as patient becomes more awake. DICTATING PHYSICIAN: ML MARQUIS MD,JACQUIE,MPH [id number] PHY#: [id number] ID: [id number] JOB#: [id number] ACCT: [id number] cc: > [facility]
--- NOTE | 2018-07-06 17:28 | PDOC PROGRESS REPORT ---
Subjective Progress Note for:: 07/06/18 Subjective:: Family at bedside. Patient went into severe tachypnea episode with reduction of her sedation level earlier today. She is currently adequately sedated and tolerating vent support. Remain on enteral tube feeding. No reported fever. Blood culture x 1 bottle positive for Staphy. epi sensitive to Vancomycin but most likely contaminant. After extensive discussion, family is agreeable to tracheostomy placement next week. Reason For Visit: ACUTE RESPIRATORY FAILURE; VENTILATOR Physical Exam Vital Signs: Temp Pulse Resp BP Pulse Ox 98.2 F 86 25 H 152/85 H 96 07/06/18 12:00 07/06/18 14:10 07/06/18 14:10 07/06/18 12:00 07/06/18 16:00 Intake & Output 07/05/18 07/06/18 07/07/18 06:59 06:59 06:59 Intake Total 1876 1957 507 Output Total 1050 1745 1510 Balance 826 212 -1003 Weight 66.3 kg 69.1 kg Results Laboratory Results: 07/06/18 04:15 07/06/18 04:15 07/06/18 07/06/18 04:15 04:15 WBC 9.4 RBC 3.68 L Hgb 9.7 L Hct 28.8 L MCV 78 L MCH 26.3 L MCHC 33.6 RDW 22.5 H Plt Count 256 Sodium 137.4 Potassium 3.7 Chloride 104 Carbon Dioxide 26 Anion Gap 7 BUN 11 Creatinine 0.46 L Est GFR ( Amer) > 60 Est GFR (Non-Af Amer) > 60 Glucose 168 H Calcium 7.2 L 07/03/18 19:30 Blood Blood Culture - Final Staphylococcus Epidermidis 07/02/18 20:22 Troponin I 0.024 NT-Pro-B Natriuret Pep 2160 H Impressions: Chest/Abdomen CTA 06/26/18 00:00 IMPRESSION: Large bilateral pleural effusions with bilateral airspace disease in the lower lobes likely atelectasis Multiple acute anterior bilateral rib fractures likely post resuscitation with chest compressions Thoracentesis Ultrasound 06/29/18 08:00 IMPRESSION: SUCCESSFUL THORACENTESIS USING ULTRASOUND GUIDANCE. Chest Ultrasound 07/02/18 00:00 IMPRESSION: Small residual left pleural effusion KUB X-Ray 07/02/18 20:37 IMPRESSION: Nasogastric tube tip and side port in the stomach. Grossly nonobstructive bowel gas pattern Head CT 07/03/18 21:00 IMPRESSION: NORMAL BRAIN CT WITHOUT CONTRAST. EVIDENCE OF ACUTE STROKE: NO. Chest X-Ray 07/06/18 05:00 IMPRESSION: Interval improvement. No pneumothorax. Assessment & Plan - Diagnosis (1) Acute and chronic respiratory failure with hypercapnia Is this a current diagnosis for this admission?: Yes (2) SIRS with acute organ dysfunction due to infectious process Is this a current diagnosis for this admission?: Yes (3) Lobar pneumonia, unspecified organism Is this a current diagnosis for this admission?: Yes (4) Grecia infection, disseminated Is this a current diagnosis for this admission?: Yes (5) Anemia due to infection Is this a current diagnosis for this admission?: Yes (6) Decompensated COPD with exacerbation (chronic obstructive pulmonary disease) Is this a current diagnosis for this admission?: Yes (7) Chronic atrial fibrillation Is this a current diagnosis for this admission?: Yes (8) HTN (hypertension) Qualifiers: Hypertension type: essential hypertension Qualified Code(s): I10 - Essential (primary) hypertension Is this a current diagnosis for this admission?: Yes (9) HLD (hyperlipidemia) Qualifiers: Hyperlipidemia type: pure hypercholesterolemia Qualified Code(s): E78.00 - Pure hypercholesterolemia, unspecified Is this a current diagnosis for this admission?: Yes (10) GERD (gastroesophageal reflux disease) Qualifiers: Esophagitis presence: esophagitis presence not specified Qualified Code(s) : K21.9 - Gastro-esophageal reflux disease without esophagitis Is this a current diagnosis for this admission?: Yes (11) Anxiety Is this a current diagnosis for this admission?: Yes (12) Depression Qualifiers: Depression Type: major depressive disorder Major depression recurrence: recurrent Active/Remission status: currently active Psychotic features: without psychotic features Is this a current diagnosis for this admission?: Yes (13) Acute delirium Is this a current diagnosis for this admission?: Yes (14) Electrolyte imbalance Is this a current diagnosis for this admission?: Yes (15) Tonic-clonic seizure disorder Is this a current diagnosis for this admission?: Yes (16) Bilateral pleural effusion Is this a current diagnosis for this admission?: Yes (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 Is this a current diagnosis for this admission?: Yes - Time Time Spent with patient: 25-34 minutes Anticipated discharge: SNF, Other - LTAC Within: Other - Inpatient Certification Based on my medical assessment, after consideration of the patient's comorbidities, presenting symptoms, or acuity I expect that the services needed warrant INPATIENT care.: Yes I certify that my determination is in accordance with my understanding of Medicare's requirements for reasonable and necessary INPATIENT services [42 CFR 412.3e].: Yes Medical Necessity: Need Close Monitoring Due to Risk of Patient Decompensation, Need For IV Fluids, Need For Continuous Telemetry Monitoring, Need for Nebulizer Therapy and Monitoring of Response, Need for IV Antibiotics, Risk of Complication if Not Cared For in Hospital Post Hospital Care: D/C or Transfer Summary - Plan Summary Plan Summary: Continue current medication therapy and ventilatory support. Request surgical consultation for possible tracheostomy placement early next week.
--- NOTE | 2018-07-06 20:01 | PROGRESS NOTE E ---
Progress Note NAME: SOHA DORSEY : 1945 AGE: 73Y DATE: 07/06/2018 ROOM: 612 SUBJECTIVE: The patient is a 73-year-old female who came in with acute respiratory failure requiring invasive mechanical ventilation. The patient failed BiPAP therapy on the floor, has been intubated about 3 times during this admission. The patient is scheduled for a tracheostomy on Monday and possible G-tube placement. The patient has had no seizure over the last 24 hours. The patient had spiked a temperature of 100.9 last night. She has some scanty endotracheal tube secretions. The patient tolerated the G-tube feeding at 30 mL per hour. No diarrhea noted. I spoke to the patient's this morning about tracheostomy tube placement which may allow us to sedate the patient less or take the patient off the sedation. The patient cannot be extubated safely in the next few days, the patient needs chronic ventilator therapy, and we may have to arrange patient to be transferred to a long-term facility when patient is a little bit more stable. claimed that he wants this patient to wake up and to talk to the patient. However, the patient spoke to Dr. Fowler later today and seemed to agree to arrange for the tracheostomy placement which will take a few days, depending upon the surgeon's availability. OBJECTIVE: GENERAL: The patient appeared sedated, not in acute respiratory distress. VITAL SIGNS: Afebrile with a temperature of 98.2 with a heart rate 78, blood pressure is 154/85, and the respiration is 20. Saturation is 92% on FIO2 of 30% and tidal volume of 380, pressure support of 10, PEEP of 5, and FIO2 of 40% being titrated to keep saturations between 91% to 94%. EYES: No icterus or pallor. EARS, NOSE, AND THROAT: No ear drainage noted. No nasal discharge. Orotracheal tube is in place. CHEST AND LUNGS: No wheezing. No rhonchi. No coarse crackles. CARDIOVASCULAR: S1, S2 distant. Normal rate. Regular rhythm. ABDOMEN: Flabby. Positive bowel sounds. Soft. Nondistended. Nontender. EXTREMITIES: No joint swelling or cellulitis. LABORATORY: Chest x-ray today showed no pneumothorax, the endotracheal tube is in place, no apparent pleural effusion, and no infiltrates noted. A CBC done today showed white count of 9.4, hemoglobin is 9.7, hematocrit is 28.8, platelet count is 252,000. Chemistry showed sodium 137, potassium 3.7, chloride 104, CO2 is 36, BUN is elevated at 0.46, glucose 168. ASSESSMENT: 1. ACUTE RESPIRATORY FAILURE REQUIRING INVASIVE MECHANICAL VENTILATION. THE PATIENT IS NOT A CANDIDATE FOR ENDOTRACHEAL TUBE INTUBATION. THE PATIENT NEEDS TRACHEOSTOMY PLACEMENT, AND THE PATIENT IS SCHEDULED FOR TRACHEOSTOMY TUBE PLACEMENT MONDAY AND POSSIBLE G-TUBE PLACEMENT. 2. PNEUMONIA, APPEARS TO BE IMPROVING. THIS APPEARS TO BE RESOLVING ON IV PRIMAXIN AND VANCOMYCIN, AND THE FEVER ALSO APPEARS TO BE RESOLVING. 3. SEVERE COPD. PROBLEM IS MOST LIKELY END STAGE. 4. HISTORY OF CONGESTIVE HEART FAILURE. AT THIS TIME, THE PATIENT APPARENTLY APPEARED TO BE STABLE. NO APPARENT PLEURAL EFFUSION AT THIS TIME. RECOMMENDATIONS: 1. We will continue the same antibiotics for now, IV Primaxin and vancomycin. 2. Continue ventilator management support. 3. We will do a chest x-ray, CBC, and chemistry tomorrow. 4. I agree with the plan for tracheostomy tube placement and G-tube placement. DICTATING PHYSICIAN: ML MARQUIS MD,JACQUIE,MPH [id number] PHY#: [id number] ID: [id number] JOB#: [id number] ACCT: [id number] cc:ML MARQUIS M.D. > MTDD
[2018-07-06] MEDS ORDERED: PROPOFOL 1,000 MG/100 ML INFUS..BTL IV ONE (20:56)
[2018-07-06] MEDS ORDERED: CLONAZEPAM 1 MG TABLET PO SCH (21:00)
[2018-07-06] MEDS: VANCOMYCIN HCL 1,000 MG in DEXTROSE 5%-WATER 250 ML IV SCH (22:09)
[2018-07-06 22:50] LABS: VANCOMYCIN,TROUGH 11.8 ug/mL (5.0-20.0)
[2018-07-07] MEDS: IPRATROPIUM/ALBUTEROL 0.5-2.5 MG/3 ML AMPUL NEB SCH ×4 (01:16→20:11)
[2018-07-07] MEDS: DIPHENHYDRAMINE HCL 50 MG CAPSULE PO SCH ×4 (01:43→18:19)
[2018-07-07] MEDS: IMIPENEM/CILASTATIN SODIUM 500 MG in NORMAL SALINE 100 ML IV SCH ×4 (02:07→21:30)
[2018-07-07] MEDS: DEXTROSE 5%-WATER 250 ML with NOREPINEPHRINE BITARTRATE 4 MG IV PRN ×4 (02:07→10:41)
[2018-07-07] MEDS: PROPOFOL 1,000 MG/100 ML INFUS..BTL IV PRN ×4 (03:22→22:55)
[2018-07-07] MEDS: PHENYTOIN 100 MG/4 ML SUSP NG SCH ×3 (05:41→22:59)
[2018-07-07] MEDS: MIDAZOLAM HCL 50 MG/100 ML RTUINJ IV PRN ×2 (05:41→22:55)
[2018-07-07] MEDS: LANSOPRAZOLE 30 MG TAB.RAP.DR NG SCH (05:41)
[2018-07-07] MEDS: GABAPENTIN 400 MG CAPSULE NG SCH ×3 (05:41→22:58)
[2018-07-07 06:13] LABS: HEMATOCRIT 30.3 % (36.0-47.0); MEAN CORPUSCULAR HEMOGLOBIN 25.9 pg (27.0-33.4); MEAN CORPUSCULAR HGB CONC 33.1 g/dL (32.0-36.0); MEAN CORPUSCULAR VOLUME 78 fl (80-97); PLATELET COUNT 303 10^3/uL (150-450); RED BLOOD COUNT 3.88 10^6/uL (3.72-5.28); RED CELL DISTRIBUTION WIDTH 22.1 % (11.5-14.0); WHITE BLOOD COUNT 11.3 10^3/uL (4.0-10.5)
[2018-07-07 06:25] LABS: ANION GAP 6 (5-19); BLOOD UREA NITROGEN 10 mg/dL (7-20); CALCIUM 7.6 mg/dL (8.4-10.2); CARBON DIOXIDE 27 mmol/L (22-30); CHLORIDE 104 mmol/L (98-107); GLUCOSE 139 mg/dL (75-110); POTASSIUM 4.1 mmol/L (3.6-5.0); SODIUM 137.3 mmol/L (137-145)
[2018-07-07 08:06] LABS: ABSOLUTE LYMPHOCYTES# (MANUAL) 2.9 10^3/uL (0.5-4.7); ABSOLUTE MONOCYTES # (MANUAL) 0.5 10^3/uL (0.1-1.4); BASOPHILS % (MANUAL) 0 % (0-2); EOSINOPHILS % (MANUAL) 17 % (0-6); LYMPHOCYTES % (MANUAL) 26 % (13-45); MONOCYTES % (MANUAL) 4 % (3-13); SEGMENTED NEUTROPHILS % (MAN) 53 % (42-78); TOTAL CELLS COUNTED 100
[2018-07-07 08:08] LABS: ANISOCYTOSIS 3+; HYPOCHROMASIA 1+; OVALOCYTES SLIGHT; PLATELET COMMENT ADEQUATE; POIKILOCYTOSIS SLIGHT; POLYCHROMASIA SLIGHT
--- NOTE | 2018-07-07 08:55 | RADIOLOGY REPORT (SQ) ---
EXAM DESCRIPTION: CHEST SINGLE VIEW COMPLETED DATE/TIME: 07/07/2018 7:15 am REASON FOR STUDY: on ventilator COMPARISON: 07/06/2018. EXAM PARAMETERS: NUMBER OF VIEWS: One view. TECHNIQUE: Single frontal radiographic view of the chest acquired. RADIATION DOSE: NA LIMITATIONS: None. FINDINGS: LUNGS AND PLEURA: Airspace disease in the right upper lobe, slightly more prominent. MEDIASTINUM AND HILAR STRUCTURES: No masses. Contour normal. HEART AND VASCULAR STRUCTURES: Heart normal in size. Normal vasculature. BONES: No acute findings. HARDWARE: Stable endotracheal tube, nasogastric tube, and central line. OTHER: No other significant finding. IMPRESSION: AIRSPACE DISEASE IN THE RIGHT UPPER LOBE APPEARS SLIGHTLY MORE PROMINENT. TECHNICAL DOCUMENTATION: JOB ID: [id number] 2007 [employer]- All Rights Reserved Reading location - IP/workstation name: [email or web address]
[2018-07-07] MEDS: DIGOXIN 0.25 MG TABLET NG SCH (09:16)
[2018-07-07] MEDS: MULTIVIT-STRESS FORMULA/ZINC TABLET NG SCH (09:16)
[2018-07-07] MEDS: ENOXAPARIN SODIUM INJ 40 MG/0.4 ML DISP.SYRIN SUBCUT SCH (09:17)
[2018-07-07] MEDS: DOCUSATE SODIUM 100 MG CAPSULE PO SCH ×2 (09:17→17:44)
--- NOTE | 2018-07-07 10:05 | PDOC PROGRESS REPORT ---
Subjective Progress Note for:: 07/07/18 Subjective:: Patient is currently intubated under sedations Patient's currently on a levo drip Patient's otherwise according to nursing staff nothing change Patient scheduled for the trach placement in the back placements next week Patient is also followed by the pulmonary Reason For Visit: ACUTE RESPIRATORY FAILURE; VENTILATOR Physical Exam Vital Signs: Temp Pulse Resp BP Pulse Ox 97.9 F 74 20 111/54 L 97 07/07/18 08:00 07/07/18 08:45 07/07/18 08:45 07/07/18 08:00 07/07/18 08:45 Intake & Output 07/06/18 07/07/18 07/08/18 06:59 06:59 06:59 Intake Total 2207 1018 Output Total 1456 3210 315 Balance 842 -0552 -315 Weight 69.1 kg 68.5 kg Physical Exam: Currently intubated under sedations General appearance: PRESENT: no acute distress Eye exam: PRESENT: PERRLA Mouth exam: PRESENT: neck supple Respiratory exam: PRESENT: decreased breath sounds Cardiovascular exam: PRESENT: +S1, +S2 GI/Abdominal exam: PRESENT: normal bowel sounds, soft Additional comments: Currently under sedation Skin exam: PRESENT: dry Results Laboratory Results: 07/07/18 05:45 07/07/18 05:45 07/07/18 07/07/18 05:45 05:45 WBC 11.3 H RBC 3.88 Hgb 10.0 L Hct 30.3 L MCV 78 L MCH 25.9 L MCHC 33.1 RDW 22.1 H Plt Count 303 Seg Neutrophils % Not Reportable Lymphocytes % Not Reportable Monocytes % Not Reportable Eosinophils % Not Reportable Basophils % Not Reportable Absolute Neutrophils Not Reportable Absolute Lymphocytes Not Reportable Absolute Monocytes Not Reportable Absolute Eosinophils Not Reportable Absolute Basophils Not Reportable Sodium 137.3 Potassium 4.1 Chloride 104 Carbon Dioxide 27 Anion Gap 6 BUN 10 Creatinine 0.37 L Est GFR ( Amer) > 60 Est GFR (Non-Af Amer) > 60 Glucose 139 H Calcium 7.6 L 07/03/18 19:30 Blood Blood Culture - Final Staphylococcus Epidermidis 07/02/18 20:22 Troponin I 0.024 NT-Pro-B Natriuret Pep 2160 H Impressions: Chest/Abdomen CTA 06/26/18 00:00 IMPRESSION: Large bilateral pleural effusions with bilateral airspace disease in the lower lobes likely atelectasis Multiple acute anterior bilateral rib fractures likely post resuscitation with chest compressions Thoracentesis Ultrasound 06/29/18 08:00 IMPRESSION: SUCCESSFUL THORACENTESIS USING ULTRASOUND GUIDANCE. Chest Ultrasound 07/02/18 00:00 IMPRESSION: Small residual left pleural effusion KUB X-Ray 07/02/18 20:37 IMPRESSION: Nasogastric tube tip and side port in the stomach. Grossly nonobstructive bowel gas pattern Head CT 07/03/18 21:00 IMPRESSION: NORMAL BRAIN CT WITHOUT CONTRAST. EVIDENCE OF ACUTE STROKE: NO. Chest X-Ray 07/07/18 05:00 IMPRESSION: AIRSPACE DISEASE IN THE RIGHT UPPER LOBE APPEARS SLIGHTLY MORE PROMINENT. Assessment & Plan - Diagnosis (1) Acute respiratory failure with hypoxemia Is this a current diagnosis for this admission?: No (2) Bilateral pleural effusion Is this a current diagnosis for this admission?: Yes (3) CHF (congestive heart failure) Qualifiers: Heart failure type: unspecified Heart failure chronicity: unspecified Qualified Code(s): I50.9 - Heart failure, unspecified Is this a current diagnosis for this admission?: Yes (4) COPD (chronic obstructive pulmonary disease) Qualifiers: COPD type: unspecified COPD Qualified Code(s): J44.9 - Chronic obstructive pulmonary disease, unspecified Is this a current diagnosis for this admission?: Yes (5) Electrolyte imbalance Is this a current diagnosis for this admission?: Yes (6) GERD (gastroesophageal reflux disease) Qualifiers: Esophagitis presence: esophagitis presence not specified Qualified Code(s) : K21.9 - Gastro-esophageal reflux disease without esophagitis Is this a current diagnosis for this admission?: Yes (7) Hypotension Qualifiers: Hypotension type: unspecified hypotension type Qualified Code(s): I95.9 - Hypotension, unspecified Is this a current diagnosis for this admission?: Yes (8) Pneumonia Qualifiers: Pneumonia type: due to methicillin-resistant Staphylococcus aureus (MRSA) Laterality: bilateral Lung location: unspecified part of lung Qualified Code (s): J15.212 - Pneumonia due to Methicillin resistant Staphylococcus aureus Is this a current diagnosis for this admission?: Yes (9) Sepsis Qualifiers: Sepsis type: sepsis due to unspecified organism Qualified Code(s): A41.9 - Sepsis, unspecified organism Is this a current diagnosis for this admission?: Yes - Time Time Spent with patient: 25-34 minutes Total Critical Time (Minutes): 25 Medications reviewed and adjusted accordingly: Yes Anticipated discharge: Other Within: Other - Inpatient Certification Medical Necessity: Need Close Monitoring Due to Risk of Patient Decompensation, Need for IV Antibiotics Post Hospital Care: D/C Warp Bleaching Vat Tender Documentation - Plan Summary Plan Summary: Continues to IV antibiotic Continues to follow with the pulmonary Scheduled for the tracheostomy and PEG placement next week
[2018-07-07] MEDS: VANCOMYCIN HCL 1,250 MG in DEXTROSE 5%-WATER 250 ML IV SCH (17:46)
--- NOTE | 2018-07-07 17:47 | PDOC CONSULTATION ---
Consultation Consult Date: 07/07/18 Consult reason:: need Tracheostomy and PEG History of Present Illness Admission Date/PCP: 05/24/18 19:53 STELLA OSUNKSOTO History of Present Illness: SOHA DORSEY is a 73 year old female currently has had endotracheal intubation for several days, MRSA and shubham pneumonitis, blood cx positive for MRSA. Currently, the patient is on norepinephrine drip as well as propofol/versed drip, sedated and not responsive. I have been requested to evaluate this patient for tracheostomy and PEG placement. Past Medical History Cardiac Medical History: Reports: Atrial Fibrillation - chronic, Congestive Heart Failure, Hypertension Denies: Coronary Artery Disease, Myocardial Infarction, Hyperlipidema, Peripheral Vascular Disease, Pulmonary Embolism, Heart Murmur Pulmonary Medical History: Reports: Bronchitis, Chronic Obstructive Pulmonary Disease (COPD) Denies: Asthma, Pneumonia, Respiratory Failure, Sleep Apnea, Tuberculosis Neurological Medical History: Reports: Seizures Endocrine Medical History: Denies: Hyperthyroidism, Hypothyroidism Renal/ Medical History: Denies: End Stage Renal Disease Malignancy Medical History: Denies: Lung Cancer GI Medical History: Reports: Gastroesophageal Reflux Disease, Hepatitis Denies: Crohn's Disease, Hiatal Hernia Musculoskeltal Medical History: Reports: Arthritis Denies: Fibromyalgia Psychiatric Medical History: Reports: Depression Denies: Dementia, Post Traumatic Stress Disorder Comment Only: Bipolar Disorder - anxiety Hematology: Denies: Anemia, Sickle Cell Disease Past Surgical History Past Surgical History: Reports: Cholecystectomy Denies: Amputation, Appendectomy, Section, Colostomy, Coronary Artery Bypass Graft, Gastric Bypass Surgery, Herniorrhaphy, Hysterectomy, Mastectomy, Pacemaker, Tonsillectomy, Tubal Ligation Social History Smoking Status: Current Every Day Smoker Cigarettes Packs Per Day: 1 Frequency of Alcohol Use: Occasional Hx Recreational Drug Use: No Drugs: None Hx Prescription Drug Abuse: No - Advance Directive Resuscitation Status: Full Code Family History Family History: Reviewed & Not Pertinent Parental Family History Reviewed: No Children Family History Reviewed: No Sibling(s) Family History Reviewed.: No Medication/Allergy Home Medications: Acetazolamide [Diamox 250 mg Tab] 250 mg PO DAILY 02/08/17 Apixaban [Eliquis 5 mg Tablet] 5 mg PO BID 02/08/17 Clonazepam [Klonopin 0.25 mg Tablet Rapid Dissolve] 0.25 mg SL QHS 02/08/17 Furosemide [Lasix] 20 mg PO DAILY 02/08/17 Gabapentin [Neurontin] 800 mg PO TID 02/08/17 Multivit-Min/Iron/Folic/Lutein [Centrum Silver Women Tablet] 1 tab PO DAILY Omeprazole 40 mg PO DAILY 02/08/17 Tiotropium [place] [Spiriva Respimat] 1 puff IH DAILY 02/08/17 Albuterol Sulfate [Proair HFA Inhalation Aerosol 8.5 gm MDI] 2 puff IH BIDP PRN 05/25/18 Fluticasone Propionate [Flonase Nasal [place] 50 Mcg/[place] 16 gm] 2 spray NASL DAILYP PRN 05/25/18 Fluticasone Propionate [Flovent HFA 220 mcg MDI] 2 puff IH BID 05/25/18 Potassium Chloride [Klor-Con M20] 20 meq PO DAILY 05/25/18 Roflumilast [Daliresp] 250 mcg PO DAILY 05/25/18 Valsartan [Diovan 160 mg Tablet] 160 mg PO DAILY 05/25/18 Allergies/Adverse Reactions: adhesive tape [Adhesive Tape] Allergy (Severe, Verified 05/25/18 10:16) peels skin off ceftriaxone sodium [From Rocephin] Allergy (Severe, Verified 05/25/18 10:16) redness/itch lorazepam [From Ativan] Adverse Reaction (Severe, Verified 05/26/18 13:33) Hallucinations Physical Exam Vital Signs: Temp Pulse Resp BP Pulse Ox 97.3 F 68 20 115/56 L 100 07/07/18 16:00 07/07/18 16:00 07/07/18 16:00 07/07/18 16:00 07/07/18 16:00 Intake & Output 07/06/18 07/07/18 07/08/18 06:59 06:59 06:59 Intake Total 2207 1118 322 Output Total 3753 3860 615 Balance 642 -0691 -974 Weight 69.1 kg 68.5 kg General appearance: PRESENT: other - intubated, sedated, not responsive, Head exam: PRESENT: atraumatic Mouth exam: PRESENT: moist, other - NGT and ET present Neck exam: PRESENT: other - no masses Respiratory exam: PRESENT: rhonchi, wheezes Cardiovascular exam: PRESENT: RRR, other - occasional PVC, [place] GI/Abdominal exam: PRESENT: hypoactive bowel sounds, soft, other - umbilical hernia Rectal exam: PRESENT: deferred Extremities exam: PRESENT: other - normal appearing, no neuro exam possible due to sedation Musculoskeletal exam: PRESENT: normal inspection Results Laboratory Results: 07/07/18 05:45 07/07/18 05:45 07/07/18 07/07/18 05:45 05:45 WBC 11.3 H RBC 3.88 Hgb 10.0 L Hct 30.3 L MCV 78 L MCH 25.9 L MCHC 33.1 RDW 22.1 H Plt Count 303 Seg Neutrophils % Not Reportable Lymphocytes % Not Reportable Monocytes % Not Reportable Eosinophils % Not Reportable Basophils % Not Reportable Absolute Neutrophils Not Reportable Absolute Lymphocytes Not Reportable Absolute Monocytes Not Reportable Absolute Eosinophils Not Reportable Absolute Basophils Not Reportable Sodium 137.3 Potassium 4.1 Chloride 104 Carbon Dioxide 27 Anion Gap 6 BUN 10 Creatinine 0.37 L Est GFR ( Amer) > 60 Est GFR (Non-Af Amer) > 60 Glucose 139 H Calcium 7.6 L 07/02/18 20:22 Troponin I 0.024 NT-Pro-B Natriuret Pep 2160 H Impressions: Chest/Abdomen CTA 06/26/18 00:00 IMPRESSION: Large bilateral pleural effusions with bilateral airspace disease in the lower lobes likely atelectasis Multiple acute anterior bilateral rib fractures likely post resuscitation with chest compressions Thoracentesis Ultrasound 06/29/18 08:00 IMPRESSION: SUCCESSFUL THORACENTESIS USING ULTRASOUND GUIDANCE. Chest Ultrasound 07/02/18 00:00 IMPRESSION: Small residual left pleural effusion KUB X-Ray 07/02/18 20:37 IMPRESSION: Nasogastric tube tip and side port in the stomach. Grossly nonobstructive bowel gas pattern Head CT 07/03/18 21:00 IMPRESSION: NORMAL BRAIN CT WITHOUT CONTRAST. EVIDENCE OF ACUTE STROKE: NO. Chest X-Ray 07/07/18 05:00 IMPRESSION: AIRSPACE DISEASE IN THE RIGHT UPPER LOBE APPEARS SLIGHTLY MORE PROMINENT. Assessment & Plan - Diagnosis (1) Acute and chronic respiratory failure with hypercapnia Is this a current diagnosis for this admission?: Yes (2) Aspiration into airway Is this a current diagnosis for this admission?: Yes - Plan Summary Plan Summary: A/ Prolonged ETT placement, multiple reintubation during the past month MRSA/Shubham Pneumonitis Need of tracheostomy and PEG to prevent airway aspiration Hx gastric ulcers which might prevent placement of the PEG and might require placement of a feeding jejunostomy P/ Placement of tracheostomy, PEG, possible feeding jejunostomy on Monday2017 Procedure, risks, benefits, have been explained to the daughter, she understands , and decides to proceed.
--- NOTE | 2018-07-07 18:01 | PROGRESS NOTE E ---
Progress Note NAME: SOHA DORSEY : 1945 AGE: 73Y DATE: 07/07/2018 ROOM: 612 SUBJECTIVE: The patient is a 73-year-old female who came in in acute respiratory failure requiring invasive mechanical ventilation. The patient was becoming very agitated yesterday while on IV Versed. The patient was started on IV propofol overnight. The patient seemed to tolerate the withdrawal of Versed this morning and doing well on propofol infusion alone. However, had episodes of getting agitated that required increased dose of propofol infusion later today. Her blood pressure still has been stable, sometimes on the low side, currently off the Levophed a few hours ago. She has continued endotracheal tube secretions. The patient tolerated the NG tube feeding, and no vomiting noted and no diarrhea noted. The patient has had no fever spikes in the last 24 hours. OBJECTIVE: GENERAL: The patient is currently sedated, afebrile, not in acute respiratory distress. VITAL SIGNS: Temperature is 97.9 with a temperature maximum of 99.5, pulse rate of 55, blood pressure is 132/52, and respiration is 20. O2 saturation is 93 on FIO2 of 35%, FMV rate of 20, tidal volume of 380, pressure support of 10, PEEP of 5. Rate ventilation is 8. Peak airway pressure is 24. EYES: No jaundice or pallor. EARS, NOSE, AND THROAT: No ear drainage. No nasal discharge. HEAD AND NECK: Thin neck. No scalp swelling. Orotracheal tube is in place. CHEST AND LUNGS: No wheezing, rhonchi. No coarse crackles. CARDIOVASCULAR: S1, S2 is distinct. No murmur. Regular rate and rhythm. ABDOMEN: Flabby, positive bowel sounds, soft, nondistended. EXTREMITIES: No joint swelling or cellulitis. LABORATORY: CBC done today showed white count of 11.3 from 9.4 yesterday, hemoglobin is 10, hematocrit 30.3, platelet count is 303,000. Chemistry done today showed sodium is 137, potassium is 4.1, chloride is 104, CO2 is 37, BUN is 10, creatinine is 0.37, glucose 139, calcium is 7.6. RADIOGRAPHIC DATA: Chest x-ray done today showed no endotracheal tube is in place about 2 to 3 cm above the jenny. No new infiltrates noted. The right upper lobe infiltrate appeared to be improving. There is a small pleural effusion on the right side. No signs of pneumothorax. ASSESSMENT: 1. ACUTE RESPIRATORY FAILURE REQUIRING INVASIVE MECHANICAL VENTILATION, CURRENTLY NOT READY TO BE EXTUBATED YET STATUS POST BREATHING TRIAL. 2. SEVERE COPD, CURRENTLY STABLE, NOT IN ACUTE EXACERBATION. 3. PNEUMONIA, RIGHT LOWER LOBE WITH SMALL RIGHT PLEURAL EFFUSION. 4. HISTORY OF CONGESTIVE HEART FAILURE. PLAN/RECOMMENDATIONS: 1. We will continue the IV Primaxin and IV vancomycin for Pseudomonas and MRSA coverage. 2. We will continue to optimize ventilator support. 3. We will try to wean off IV Levophed while keeping systolic blood pressure of 100 mmHg or higher. 4. We will try to hold the IV Versed and use the IV propofol unless the patient becomes very agitated, then the IV Versed is optimized. 5. We will continue to optimize hemodynamic support. DICTATING PHYSICIAN: ML MARQUIS MD,JACQUIE,MPH [id number] PHY#: [id number] ID: [id number] JOB#: [id number] ACCT: [id number] cc: > MTDD
[2018-07-08] MEDS: IPRATROPIUM/ALBUTEROL 0.5-2.5 MG/3 ML AMPUL NEB SCH ×4 (02:47→20:02)
[2018-07-08] MEDS: PROPOFOL 1,000 MG/100 ML INFUS..BTL IV PRN ×4 (03:17→22:19)
[2018-07-08] MEDS: IMIPENEM/CILASTATIN SODIUM 500 MG in NORMAL SALINE 100 ML IV SCH ×4 (03:17→22:25)
[2018-07-08] MEDS: DIPHENHYDRAMINE HCL 50 MG CAPSULE PO SCH ×2 (03:20→07:22)
--- NOTE | 2018-07-08 06:16 | PDOC PROGRESS REPORT ---
Subjective Progress Note for:: 07/08/18 Subjective:: Patient is currently intubated under sedations Patient's currently on a levo drip Patient's otherwise according to nursing staff nothing change Patient scheduled for the trach placement in the back placements next week Patient is also followed by the pulmonary Reason For Visit: ACUTE RESPIRATORY FAILURE; VENTILATOR Physical Exam Vital Signs: Temp Pulse Resp BP Pulse Ox 97.6 F 54 L 20 143/48 H 100 07/08/18 06:00 07/08/18 02:47 07/08/18 02:47 07/07/18 18:00 07/08/18 03:14 Intake & Output 07/06/18 07/07/18 07/08/18 06:59 06:59 06:59 Intake Total 2207 1118 880 Output Total 174 2170 1845 Balance 342 -7975 -670 Weight 69.1 kg 68.5 kg 67 kg Physical Exam: Is currently intubated General appearance: PRESENT: no acute distress Eye exam: PRESENT: PERRLA Mouth exam: PRESENT: neck supple Respiratory exam: PRESENT: clear to auscultation cas Cardiovascular exam: PRESENT: +S1, +S2 GI/Abdominal exam: PRESENT: normal bowel sounds, soft. ABSENT: tenderness Extremities exam: ABSENT: pedal edema Skin exam: PRESENT: dry Results Laboratory Results: 07/07/18 05:45 07/07/18 05:45 07/07/18 07/07/18 05:45 05:45 WBC 11.3 H RBC 3.88 Hgb 10.0 L Hct 30.3 L MCV 78 L MCH 25.9 L MCHC 33.1 RDW 22.1 H Plt Count 303 Seg Neutrophils % Not Reportable Lymphocytes % Not Reportable Monocytes % Not Reportable Eosinophils % Not Reportable Basophils % Not Reportable Absolute Neutrophils Not Reportable Absolute Lymphocytes Not Reportable Absolute Monocytes Not Reportable Absolute Eosinophils Not Reportable Absolute Basophils Not Reportable Sodium 137.3 Potassium 4.1 Chloride 104 Carbon Dioxide 27 Anion Gap 6 BUN 10 Creatinine 0.37 L Est GFR ( Amer) > 60 Est GFR (Non-Af Amer) > 60 Glucose 139 H Calcium 7.6 L 07/02/18 20:22 Troponin I 0.024 NT-Pro-B Natriuret Pep 2160 H Impressions: Chest/Abdomen CTA 06/26/18 00:00 IMPRESSION: Large bilateral pleural effusions with bilateral airspace disease in the lower lobes likely atelectasis Multiple acute anterior bilateral rib fractures likely post resuscitation with chest compressions Thoracentesis Ultrasound 06/29/18 08:00 IMPRESSION: SUCCESSFUL THORACENTESIS USING ULTRASOUND GUIDANCE. Chest Ultrasound 07/02/18 00:00 IMPRESSION: Small residual left pleural effusion KUB X-Ray 07/02/18 20:37 IMPRESSION: Nasogastric tube tip and side port in the stomach. Grossly nonobstructive bowel gas pattern Head CT 07/03/18 21:00 IMPRESSION: NORMAL BRAIN CT WITHOUT CONTRAST. EVIDENCE OF ACUTE STROKE: NO. Chest X-Ray 07/07/18 05:00 IMPRESSION: AIRSPACE DISEASE IN THE RIGHT UPPER LOBE APPEARS SLIGHTLY MORE PROMINENT. Assessment & Plan - Diagnosis (1) Acute respiratory failure with hypoxemia Is this a current diagnosis for this admission?: No (2) Bilateral pleural effusion Is this a current diagnosis for this admission?: Yes (3) CHF (congestive heart failure) Qualifiers: Heart failure type: unspecified Heart failure chronicity: unspecified Qualified Code(s): I50.9 - Heart failure, unspecified Is this a current diagnosis for this admission?: Yes (4) COPD (chronic obstructive pulmonary disease) Qualifiers: COPD type: unspecified COPD Qualified Code(s): J44.9 - Chronic obstructive pulmonary disease, unspecified Is this a current diagnosis for this admission?: Yes (5) Electrolyte imbalance Is this a current diagnosis for this admission?: Yes (6) GERD (gastroesophageal reflux disease) Qualifiers: Esophagitis presence: esophagitis presence not specified Qualified Code(s) : K21.9 - Gastro-esophageal reflux disease without esophagitis Is this a current diagnosis for this admission?: Yes (7) Hypotension Qualifiers: Hypotension type: unspecified hypotension type Qualified Code(s): I95.9 - Hypotension, unspecified Is this a current diagnosis for this admission?: Yes (8) Pneumonia Qualifiers: Pneumonia type: due to methicillin-resistant Staphylococcus aureus (MRSA) Laterality: bilateral Lung location: unspecified part of lung Qualified Code (s): J15.212 - Pneumonia due to Methicillin resistant Staphylococcus aureus Is this a current diagnosis for this admission?: Yes (9) Sepsis Qualifiers: Sepsis type: sepsis due to unspecified organism Qualified Code(s): A41.9 - Sepsis, unspecified organism Is this a current diagnosis for this admission?: Yes - Time Time Spent with patient: 25-34 minutes Total Critical Time (Minutes): 25 Medications reviewed and adjusted accordingly: Yes Anticipated discharge: Other Within: Other - Inpatient Certification Medical Necessity: Need Close Monitoring Due to Risk of Patient Decompensation Post Hospital Care: D/C Matcher Documentation - Plan Summary Plan Summary: Patient is going for the tube placement and tracheostomy on a Monday continues her current medications
[2018-07-08] MEDS: PHENYTOIN 100 MG/4 ML SUSP NG SCH ×3 (07:22→22:24)
[2018-07-08] MEDS: GABAPENTIN 400 MG CAPSULE NG SCH ×3 (07:22→22:25)
[2018-07-08] MEDS: LANSOPRAZOLE 30 MG TAB.RAP.DR NG SCH (07:23)
--- NOTE | 2018-07-08 08:50 | RADIOLOGY REPORT (SQ) ---
EXAM DESCRIPTION: CHEST SINGLE VIEW COMPLETED DATE/TIME: 07/08/2018 8:20 am REASON FOR STUDY: on ventilator COMPARISON: 07/07/2018. EXAM PARAMETERS: NUMBER OF VIEWS: One view. TECHNIQUE: Single frontal radiographic view of the chest acquired. RADIATION DOSE: NA LIMITATIONS: None. FINDINGS: LUNGS AND PLEURA: Improved aeration in the right upper lobe. Left lung relatively clear. MEDIASTINUM AND HILAR STRUCTURES: No masses. Contour normal. HEART AND VASCULAR STRUCTURES: Heart normal in size. Normal vasculature. BONES: No acute findings. HARDWARE: Stable endotracheal tube, nasogastric tube, and central line. OTHER: No other significant finding. IMPRESSION: IMPROVED AERATION IN THE RIGHT UPPER LOBE. TECHNICAL DOCUMENTATION: JOB ID: [id number] [employer]- All Rights Reserved Reading location - IP/workstation name: [email or web address]
[2018-07-08] MEDS: DOCUSATE SODIUM 100 MG CAPSULE PO SCH ×2 (09:22→17:25)
[2018-07-08] MEDS: MULTIVIT-STRESS FORMULA/ZINC TABLET NG SCH (09:24)
[2018-07-08] MEDS: DIGOXIN 0.25 MG TABLET NG SCH (10:37)
[2018-07-08 11:05] LABS: ABSOLUTE BASOPHILS # (AUTO) 0.1 10^3/uL (0.0-0.2); ABSOLUTE EOSINOPHILS # (AUTO) 1.4 10^3/uL (0.0-0.6); ABSOLUTE LYMPHOCYTES (AUTO) 1.7 10^3/uL (0.5-4.7); ABSOLUTE MONOCYTES (AUTO) 0.9 10^3/uL (0.1-1.4); ABSOLUTE NEUT (AUTO) 4.6 10^3/uL (1.7-8.2); BASOPHILS % (AUTO) 0.8 % (0-2); EOSINOPHILS % (AUTO) 16.2 % (0-6); HEMATOCRIT 30.5 % (36.0-47.0); LYMPHOCYTES % (AUTO) 19.4 % (13-45); MEAN CORPUSCULAR HEMOGLOBIN 25.8 pg (27.0-33.4); MEAN CORPUSCULAR HGB CONC 32.8 g/dL (32.0-36.0); MEAN CORPUSCULAR VOLUME 79 fl (80-97); MONOCYTES % (AUTO) 10.7 % (3-13); PLATELET COUNT 300 10^3/uL (150-450); RED BLOOD COUNT 3.87 10^6/uL (3.72-5.28); SEGMENTED NEUTROPHILS % (AUTO) 52.9 % (42-78); TOTAL CELLS COUNTED % (AUTO) 100 %; WHITE BLOOD COUNT 8.7 10^3/uL (4.0-10.5)
[2018-07-08 11:07] LABS: ARTERIAL BLOOD BASE EXCESS 0.8 mmol/L; ARTERIAL BLOOD H2CO3 0.75 mmol/L (1.05-1.35); ARTERIAL BLOOD HCO3 22.2 mmol/L (20-26); ARTERIAL BLOOD O2 SATURATION 99.2 % (94-98); ARTERIAL BLOOD PH 7.57 (7.35-7.45); ARTERIAL BLOOD PO2 142.6 mmHg (80-100)
[2018-07-08 11:12] LABS: ARTERIAL BLOOD FIO2 35%
[2018-07-08] MEDS ORDERED: DIPHENHYDRAMINE HCL 50 MG CAPSULE PO SCH (11:16)
[2018-07-08 11:28] LABS: ALANINE AMINOTRANSFERASE 18 U/L (9-52); ALKALINE PHOSPHATASE 132 U/L (38-126); ANION GAP 8 (5-19); ASPARTATE AMINO TRANSFERASE 23 U/L (14-36); BILIRUBIN,DIRECT 0.1 mg/dL (0.0-0.4); BILIRUBIN,TOTAL 0.1 mg/dL (0.2-1.3); BLOOD UREA NITROGEN 11 mg/dL (7-20); CALCIUM 7.7 mg/dL (8.4-10.2); CARBON DIOXIDE 26 mmol/L (22-30); CHLORIDE 104 mmol/L (98-107); GLUCOSE 119 mg/dL (75-110); PHOSPHORUS 4.9 mg/dL (2.5-4.5); POTASSIUM 4.5 mmol/L (3.6-5.0); SODIUM 137.6 mmol/L (137-145); TOTAL PROTEIN 4.8 g/dL (6.3-8.2)
--- NOTE | 2018-07-08 12:02 | PDOC PROGRESS REPORT ---
Subjective Progress Note for:: 07/08/18 Subjective:: Patient intubated, off sedatkon, panting, but awake, not aware of her surroundings Reason For Visit: ACUTE RESPIRATORY FAILURE; VENTILATOR Physical Exam Vital Signs: Temp Pulse Resp BP Pulse Ox 97.6 F 71 20 109/48 L 96 07/08/18 10:00 07/08/18 10:00 07/08/18 10:00 07/08/18 10:00 07/08/18 11:34 Intake & Output 07/07/18 07/08/18 07/09/18 06:59 06:59 06:59 Intake Total 1118 980 100 Output Total 2170 1845 240 Balance -1052 -865 -140 Weight 68.5 kg 67 kg General appearance: PRESENT: mild distress, other - panting while intubated GI/Abdominal exam: PRESENT: soft Results Laboratory Results: 07/08/18 10:30 07/08/18 10:30 07/08/18 07/08/18 07/08/18 10:30 10:30 10:30 WBC 8.7 RBC 3.87 Hgb 10.0 L Hct 30.5 L MCV 79 L MCH 25.8 L MCHC 32.8 RDW 22.0 H Plt Count 300 Seg Neutrophils % 52.9 Lymphocytes % 19.4 Monocytes % 10.7 Eosinophils % 16.2 H Basophils % 0.8 Absolute Neutrophils 4.6 Absolute Lymphocytes 1.7 Absolute Monocytes 0.9 Absolute Eosinophils 1.4 H Absolute Basophils 0.1 Carbonic Acid 0.75 L HCO3/H2CO3 Ratio 29:1 ABG pH 7.57 H ABG pCO2 25.0 L ABG pO2 142.6 H ABG HCO3 22.2 ABG O2 Saturation 99.2 H ABG Base Excess 0.8 FiO2 35% Sodium 137.6 Potassium 4.5 Chloride 104 Carbon Dioxide 26 Anion Gap 8 BUN 11 Creatinine 0.37 L Est GFR ( Amer) > 60 Est GFR (Non-Af Amer) > 60 Glucose 119 H Calcium 7.7 L Phosphorus 4.9 H Magnesium 1.9 Total Bilirubin 0.1 L AST 23 ALT 18 Alkaline Phosphatase 132 H Total Protein 4.8 L Albumin 2.0 L 07/02/18 20:22 Troponin I 0.024 NT-Pro-B Natriuret Pep 2160 H Impressions: Chest/Abdomen CTA 06/26/18 00:00 IMPRESSION: Large bilateral pleural effusions with bilateral airspace disease in the lower lobes likely atelectasis Multiple acute anterior bilateral rib fractures likely post resuscitation with chest compressions Thoracentesis Ultrasound 06/29/18 08:00 IMPRESSION: SUCCESSFUL THORACENTESIS USING ULTRASOUND GUIDANCE. Chest Ultrasound 07/02/18 00:00 IMPRESSION: Small residual left pleural effusion KUB X-Ray 07/02/18 20:37 IMPRESSION: Nasogastric tube tip and side port in the stomach. Grossly nonobstructive bowel gas pattern Head CT 07/03/18 21:00 IMPRESSION: NORMAL BRAIN CT WITHOUT CONTRAST. EVIDENCE OF ACUTE STROKE: NO. Chest X-Ray 07/08/18 05:00 IMPRESSION: IMPROVED AERATION IN THE RIGHT UPPER LOBE. Assessment & Plan - Diagnosis (1) Acute and chronic respiratory failure with hypercapnia Is this a current diagnosis for this admission?: Yes (2) Aspiration into airway Is this a current diagnosis for this admission?: Yes - Plan Summary Plan Summary: A/ respiratory failure requiring prolonged intubation Blood work WNL Blood gases demonstrate respiratory alkalosis P/ NPO after midnight Hold Lovenox Tracheostomy and PEG in AM
[2018-07-08] MEDS ORDERED: DIPHENHYDRAMINE HCL 25 MG CAPSULE PO ONE (14:00)
[2018-07-08 14:54] LABS: ARTERIAL BLOOD BASE EXCESS -2.3 mmol/L; ARTERIAL BLOOD H2CO3 1.67 mmol/L (1.05-1.35); ARTERIAL BLOOD HCO3 25.4 mmol/L (20-26); ARTERIAL BLOOD PCO2 55.5 mmHg (35-45); ARTERIAL BLOOD PH 7.28 (7.35-7.45); ARTERIAL BLOOD TOTAL CO2 27.1 mmol/L (21-25)
[2018-07-08 14:56] LABS: ARTERIAL BLOOD FIO2 35%
--- NOTE | 2018-07-08 16:41 | PROGRESS NOTE E ---
Progress Note NAME: SOHA DORSEY : 1945 AGE: 73Y DATE: 07/08/2018 ROOM: 612 SUBJECTIVE: Patient is a 73-year-old female who came in acute respiratory failure requiring invasive mechanical ventilation, severe COPD and congestive heart failure, and bilateral pleural effusion, which improved. Has had scanty endotracheal tube secretions over the last 24 hours. No fever, no chills over the last 24 hours. Patient tolerated the NG tube feedings. No vomiting, no diarrhea. Patient is scheduled for tracheostomy tube placement tomorrow and possible G-tube placement. OBJECTIVE: VITAL SIGNS: Patient is awake, afebrile, off sedation, not in apparent respiratory distress, with a temperature of 97.6, with a T-max of 98.1, heart rate of 66, blood pressure is 126/53 and the respiratory rate is 20. Saturation is 98% on 25% FiO2. SIMV rate of 20, tidal volume of 380, pressure support of 10, PEEP of 5. His ventilations have been 7 to 8. EYES: No jaundice or pallor. EARS, NOSE AND THROAT: No ear drainage noted. Orotracheal tube is in place. CHEST AND LUNGS: Has some fines rales bibasilarly. No wheezing. CARDIOVASCULAR: S1, S2 distant. Normal rate, regular rate. ABDOMEN: Flabby. Positive bowel sounds. Nondistended, nontender. EXTREMITIES: No joint swelling or cellulitis. LABORATORY DATA: CBC done today showed white count of 8.7, hemoglobin of 10, hematocrit 30.5, platelet count is 300,000. ABGs at 10:30 this morning showed pH of 7.57, pCO2 of 25, pO2 of 640 and saturation 99% on 35% FiO2. Chemistry is still pending. Chest x-ray done today showed no pneumothorax. Endotracheal tube is in place. Very small amount of pleural effusion on right side. No new infiltrate noted. Infiltrate of right upper lobe appeared to be improving. ASSESSMENT: 1. ACUTE RESPIRATORY FAILURE REQUIRING INVASIVE MECHANICAL VENTILATION. Patient is not ready to be extubated yet. When off the sedation to fully awake, will perform spontaneous breathing trial, decreasing the SIMV rate to 2. Patient's inhaled and exhaled tidal volumes are only about 170, 180, and patient becomes tachypneic. Respiratory rate went up to 30-32 breaths per minute. Discontinued the spontaneous breathing trial and put patient back on SIMV rate of 16. Will do an ABG probably at 1 p.m. to determine if the acute respiratory alkalosis remains persistent. 2. SEVERE COPD. 3. HISTORY OF CONGESTIVE HEART FAILURE, BILATERAL PLEURAL EFFUSION. 4. HISTORY OF SEVERAL ENDOTRACHEAL TUBE INTUBATIONS FOR A TOTAL OF 3 DURING THIS ADMISSION. PLAN/RECOMMENDATIONS: 1. Will go ahead with tracheostomy tube placement, hopefully tomorrow, with a G-tube placement. 2. Will continue the same IV antibiotics. Will continue the same and optimize ventilator settings. DICTATING PHYSICIAN: ML MARQUIS MD,JACQUIE,MPH [id number] PHY#: [id number] ID: [id number] JOB#: [id number] ACCT: [id number] cc: > MTDD
[2018-07-08] MEDS: VANCOMYCIN HCL 1,250 MG in DEXTROSE 5%-WATER 250 ML IV SCH (17:25)
[2018-07-08] MEDS: MIDAZOLAM HCL 50 MG/100 ML RTUINJ IV PRN (21:36)
[2018-07-08] MEDS ORDERED: DIPHENHYDRAMINE HCL 50 MG/ML VIAL ONE (22:05)
[2018-07-08] MEDS: DIPHENHYDRAMINE HCL 25 MG CAPSULE PO SCH (22:18)
[2018-07-08] MEDS: GUAIFENESIN SYRP 200 MG/10 ML UDC NG PRN (22:24)
[2018-07-08] MEDS: OXYCODONE-ACETAMINOPHEN 5-325 MG TABLET NG PRN (22:25)
[2018-07-08] MEDS ORDERED: INSULIN LISPRO 100 UNIT/ML 3 ML VIAL SUBCUT PRN (22:51)
[2018-07-08] MEDS ORDERED: ACETAMINOPHEN SOLN 325 MG/10.15 ML UDCUP NG PRN (22:53)
[2018-07-08] MEDS ORDERED: OXYCODONE-ACETAMINOPHEN 5-325 MG TABLET NG PRN (22:53)
[2018-07-08] MEDS ORDERED: MIDAZOLAM HCL 50 MG/100 ML RTUINJ IV PRN (22:57)
[2018-07-08] MEDS ORDERED: DIPHENHYDRAMINE HCL 50 MG/ML VIAL IV ONE (23:00)
[2018-07-09] MEDS: DIPHENHYDRAMINE HCL 25 MG CAPSULE PO SCH ×4 (01:45→19:55)
[2018-07-09] MEDS: IPRATROPIUM/ALBUTEROL 0.5-2.5 MG/3 ML AMPUL NEB SCH ×4 (02:56→19:50)
[2018-07-09] MEDS: PROPOFOL 1,000 MG/100 ML INFUS..BTL IV PRN ×5 (03:21→23:59)
[2018-07-09] MEDS: IMIPENEM/CILASTATIN SODIUM 500 MG in NORMAL SALINE 100 ML IV SCH ×4 (03:22→21:49)
[2018-07-09 05:41] LABS: HEMATOCRIT 28.3 % (36.0-47.0); HEMOGLOBIN 9.3 g/dL (12.0-15.5); MEAN CORPUSCULAR HGB CONC 32.9 g/dL (32.0-36.0); MEAN CORPUSCULAR VOLUME 79 fl (80-97); PLATELET COUNT 272 10^3/uL (150-450); RED BLOOD COUNT 3.58 10^6/uL (3.72-5.28); RED CELL DISTRIBUTION WIDTH 21.7 % (11.5-14.0); WHITE BLOOD COUNT 9.3 10^3/uL (4.0-10.5)
[2018-07-09 06:08] LABS: APPEARANCE,URINE SLIGHTLY-CLOUDY; BILIRUBIN,URINE NEGATIVE (NEGATIVE); GLUCOSE, URINE NEGATIVE (NEGATIVE); KETONES,URINE TRACE mg/dL (NEGATIVE); LEUKOCYTE ESTERASE,URINE SMALL (NEGATIVE); NITRITE,URINE NEGATIVE (NEGATIVE); PROTEIN,URINE 30 mg/dL (NEGATIVE); URINE SPECIFIC GRAVITY 1.024
[2018-07-09 06:09] LABS: COLOR,URINE YELLOW
[2018-07-09 06:11] LABS: PROTHROMBIN TIME 12.6 SEC (11.4-15.4)
[2018-07-09 06:13] LABS: ANION GAP 7 (5-19); BLOOD UREA NITROGEN 12 mg/dL (7-20); CALCIUM 7.9 mg/dL (8.4-10.2); CARBON DIOXIDE 25 mmol/L (22-30); CHLORIDE 104 mmol/L (98-107); GLUCOSE 127 mg/dL (75-110); POTASSIUM 4.4 mmol/L (3.6-5.0); SODIUM 136.2 mmol/L (137-145)
[2018-07-09] MEDS: PHENYTOIN 100 MG/4 ML SUSP NG SCH ×3 (06:29→21:49)
[2018-07-09] MEDS: LANSOPRAZOLE 30 MG TAB.RAP.DR NG SCH (06:29)
[2018-07-09] MEDS: GABAPENTIN 400 MG CAPSULE NG SCH ×3 (06:29→21:49)
--- NOTE | 2018-07-09 09:36 | PDOC PROGRESS REPORT ---
Subjective Subjective:: Patient intubated, sedated Reason For Visit: ACUTE RESPIRATORY FAILURE; VENTILATOR Physical Exam Vital Signs: Temp Pulse Resp BP Pulse Ox 97.5 F 62 18 120/48 L 97 07/09/18 08:00 07/09/18 08:40 07/09/18 08:40 07/09/18 08:00 07/09/18 08:40 Intake & Output 07/08/18 07/09/18 07/10/18 06:59 06:59 06:59 Intake Total 1230 2675 43 Output Total 1845 930 60 Balance -615 1745 -17 Weight 67 kg 69.9 kg General appearance: PRESENT: other - Patient intubated in room 612, sedated Neck exam: PRESENT: other - No evidence of previous tracheostomy GI/Abdominal exam: PRESENT: other - Right upper quadrant scar consistent with previous surgery; epigastrium and left upper quadrant unremarkable; reducible umbilical hernia Results Laboratory Results: 07/09/18 05:15 07/09/18 05:15 07/08/18 07/08/18 07/08/18 10:30 10:30 10:30 WBC 8.7 RBC 3.87 Hgb 10.0 L Hct 30.5 L MCV 79 L MCH 25.8 L MCHC 32.8 RDW 22.0 H Plt Count 300 Seg Neutrophils % 52.9 Lymphocytes % 19.4 Monocytes % 10.7 Eosinophils % 16.2 H Basophils % 0.8 Absolute Neutrophils 4.6 Absolute Lymphocytes 1.7 Absolute Monocytes 0.9 Absolute Eosinophils 1.4 H Absolute Basophils 0.1 Carbonic Acid 0.75 L HCO3/H2CO3 Ratio 29:1 ABG pH 7.57 H ABG pCO2 25.0 L ABG pO2 142.6 H ABG HCO3 22.2 ABG O2 Saturation 99.2 H ABG Base Excess 0.8 FiO2 35% Sodium 137.6 Potassium 4.5 Chloride 104 Carbon Dioxide 26 Anion Gap 8 BUN 11 Creatinine 0.37 L Est GFR ( Amer) > 60 Est GFR (Non-Af Amer) > 60 Glucose 119 H Calcium 7.7 L Phosphorus 4.9 H Magnesium 1.9 Total Bilirubin 0.1 L AST 23 ALT 18 Alkaline Phosphatase 132 H Total Protein 4.8 L Albumin 2.0 L Urine Color Urine Appearance Urine pH Ur Specific [place] Urine Protein Urine Glucose (UA) Urine Ketones Urine Blood Urine Nitrite Ur Leukocyte Esterase Urine WBC (Auto) Urine RBC (Auto) 07/08/18 07/09/18 07/09/18 14:15 05:15 05:15 WBC 9.3 RBC 3.58 L Hgb 9.3 L Hct 28.3 L MCV 79 L MCH 26.0 L MCHC 32.9 RDW 21.7 H Plt Count 272 Seg Neutrophils % Lymphocytes % Monocytes % Eosinophils % Basophils % Absolute Neutrophils Absolute Lymphocytes Absolute Monocytes Absolute Eosinophils Absolute Basophils Carbonic Acid 1.67 H HCO3/H2CO3 Ratio 15:1 ABG pH 7.28 L ABG pCO2 55.5 H ABG pO2 79.0 L ABG HCO3 25.4 ABG O2 Saturation 94.0 ABG Base Excess -2.3 FiO2 35% Sodium 136.2 L Potassium 4.4 Chloride 104 Carbon Dioxide 25 Anion Gap 7 BUN 12 Creatinine 0.46 L Est GFR ( Amer) > 60 Est GFR (Non-Af Amer) > 60 Glucose 127 H Calcium 7.9 L Phosphorus Magnesium Total Bilirubin AST ALT Alkaline Phosphatase Total Protein Albumin Urine Color Urine Appearance Urine pH Ur Specific [place] Urine Protein Urine Glucose (UA) Urine Ketones Urine Blood Urine Nitrite Ur Leukocyte Esterase Urine WBC (Auto) Urine RBC (Auto) 07/09/18 05:15 WBC RBC Hgb Hct MCV MCH MCHC RDW Plt Count Seg Neutrophils % Lymphocytes % Monocytes % Eosinophils % Basophils % Absolute Neutrophils Absolute Lymphocytes Absolute Monocytes Absolute Eosinophils Absolute Basophils Carbonic Acid HCO3/H2CO3 Ratio ABG pH ABG pCO2 ABG pO2 ABG HCO3 ABG O2 Saturation ABG Base Excess FiO2 Sodium Potassium Chloride Carbon Dioxide Anion Gap BUN Creatinine Est GFR ( Amer) Est GFR (Non-Af Amer) Glucose Calcium Phosphorus Magnesium Total Bilirubin AST ALT Alkaline Phosphatase Total Protein Albumin Urine Color YELLOW Urine Appearance SLIGHTLY-CLOUDY Urine pH 5.0 Ur Specific [place] 1.024 Urine Protein 30 H Urine Glucose (UA) NEGATIVE Urine Ketones TRACE H Urine Blood NEGATIVE Urine Nitrite NEGATIVE Ur Leukocyte Esterase SMALL H Urine WBC (Auto) 19 Urine RBC (Auto) 2 07/03/18 19:20 Blood Blood Culture - Final NO GROWTH IN 5 DAYS 07/02/18 20:22 Troponin I 0.024 NT-Pro-B Natriuret Pep 2160 H Impressions: Chest/Abdomen CTA 06/26/18 00:00 IMPRESSION: Large bilateral pleural effusions with bilateral airspace disease in the lower lobes likely atelectasis Multiple acute anterior bilateral rib fractures likely post resuscitation with chest compressions Thoracentesis Ultrasound 06/29/18 08:00 IMPRESSION: SUCCESSFUL THORACENTESIS USING ULTRASOUND GUIDANCE. Chest Ultrasound 07/02/18 00:00 IMPRESSION: Small residual left pleural effusion KUB X-Ray 07/02/18 20:37 IMPRESSION: Nasogastric tube tip and side port in the stomach. Grossly nonobstructive bowel gas pattern Head CT 07/03/18 21:00 IMPRESSION: NORMAL BRAIN CT WITHOUT CONTRAST. EVIDENCE OF ACUTE STROKE: NO. Chest X-Ray 07/08/18 05:00 IMPRESSION: IMPROVED AERATION IN THE RIGHT UPPER LOBE. Assessment & Plan - Diagnosis (1) Acute and chronic respiratory failure with hypercapnia Is this a current diagnosis for this admission?: Yes Plan: Impression: Acute superimposed on chronic respiratory failure, ventilator dependent, failed several trials of extubation, needs long-term respiratory and gastroenterologic support for nutrition. Recommendations: 1. We will plan to place tracheostomy and PEG tube later today; unexplained the mechanics of the operation to the patient's who is the healthcare power of assistant prosecuting attorney, as well as the patient's daughter. 2. I also explained to them that the support devices will not change her overall outcome, but will make her easier to manage from a nursing standpoint, and less likely to develop other complications. They are in agreement to proceed.
[2018-07-09] MEDS ORDERED: ROCURONIUM BROMIDE INJ 50 MG/5 ML VIAL IV ONE (10:01)
[2018-07-09] MEDS: DOCUSATE SODIUM 100 MG CAPSULE PO SCH ×2 (10:02→17:25)
[2018-07-09] MEDS: MULTIVIT-STRESS FORMULA/ZINC TABLET NG SCH (10:02)
[2018-07-09] MEDS: DIGOXIN 0.25 MG TABLET NG SCH (10:03)
[2018-07-09 11:50] LABS: ARTERIAL BLOOD BASE EXCESS 1.3 mmol/L; ARTERIAL BLOOD H2CO3 1.36 mmol/L (1.05-1.35); ARTERIAL BLOOD HCO3 26.6 mmol/L (20-26); ARTERIAL BLOOD PCO2 45.2 mmHg (35-45); ARTERIAL BLOOD PH 7.39 (7.35-7.45); ARTERIAL BLOOD PO2 93.5 mmHg (80-100)
[2018-07-09 11:51] LABS: ARTERIAL BLOOD FIO2 35%
[2018-07-09] MEDS ORDERED: FENTANYL CITRATE INJ/PF 100 MCG/2 ML AMPUL ONE (14:42)
[2018-07-09] MEDS ORDERED: MIDAZOLAM 2 MG/2 ML INJ ONE (14:43)
[2018-07-09] MEDS ORDERED: LIDOCAINE 1%/EPINEPHRINE INJ 20 ML VIAL ONE (14:47)
[2018-07-09] MEDS ORDERED: LIDOCAINE 2% JELLY 30 ML TUBE ONE (14:48)
--- NOTE | 2018-07-09 16:24 | Operative Report ---
Operative Report DATE OF SURGERY: 07/09/18 PREOPERATIVE DIAGNOSIS: 1. Respiratory failure. 2. Cognitive dysfunction POSTOPERATIVE DIAGNOSIS: Same with mild gastritis OPERATION: 1. Open operative #8 Shiley tracheostomy tube basement. 2. Esophagogastroduodenoscopy. 3. Percutaneous endoscopic gastrostomy tube placement SURGEON: DONY JOSEPH ANESTHESIA: GA TISSUE REMOVED OR ALTERED: See below COMPLICATIONS: None ESTIMATED BLOOD LOSS: Scant INTRAOPERATIVE FINDINGS: See below PROCEDURE: The patient was taken to the intensive carried to the main operating room where general anesthesia was induced through the existing endotracheal tube. Arms were tucked in supine position, neck extended, neck and chest prepped and draped in sterile fashion in anticipation of operative tracheostomy tube placement. Surgical plan surgical timeout conducted. The findings were significant for a #8 endotracheal tube. The neck was anesthetized with 1% plain lidocaine, and a 3 cm slightly curvilinear incision was made over the anterior neck approximately 2 fingerbreadths above the sternal notch. Subcutaneous tissue platysma all divided with electrocautery. Strap muscles were divided, and the thyroid was elevated cephalad. The paratracheal fat was divided with electrocautery and hemostats. Radha retractors were used to retract the strap muscles laterally. And a [employer] was used to retract the tissue over the sternum. A large tracheal hook was inserted under the cricoid cartilage, and the trachea elevated. A #15 blade was used to cut an upside down U in the trachea at approximately the second tracheal ring. A 2-0 Prolene suture was placed in the flap and uses a rescue stitch. The endotracheal tube was removed by anesthesia #8 Shiley tracheostomy tube inserted into the trachea without difficulty. The obturator was removed, balloon insufflated and the conduit for the majority apparatus attached. Patient ventilated with excellent breath sounds in lung expansion bilaterally and appropriate return of CO2. The trach tube was secured to the skin at 4 sites with 2-0 Prolene suture. We now removed the drapes and prepared for the percutaneous endoscopic gastrostomy tube placement. Endoscopy team was present. Flexible adult upper endoscope was advanced to the patient's oral pharynx without difficulty. The esophagus stomach and first and second portion of the duodenum were grossly unremarkable. There was mild gastritis of the antrum. No biopsies were obtained. A suitable site for placement of the PEG tube was chosen to the left of midline between the epigastrium and the umbilicus. On palpation was demonstrated through the intra-abdominal wall and anterior stomach wall, and transillumination was deemed appropriate. The skin in the left upper quadrant of the abdominal wall was Maria Fernanda 1% plain lidocaine. A [place] was made in the skin with the 11 blade, and the Jelco threaded through the intra-abdominal wall into the lumen of the stomach. [place] was left in position, needle removed and the guidewire threaded into the stomach. The guidewire was retrieved by Dr. Joseph operating the upper endoscope using the loop snare. The scope snare and wire were pulled out of patient's oral pharynx. We then took a 24 [place] and a Y and pushed it over the guidewire, and brought the guidewire and gastrostomy tube out through the anterior abdominal wall leaving the bolster in good position. Repeat endoscopy performed uneventfully by Dr. Joseph confirmed appropriate placement of the feeding tube, with the appropriate distance between the flange and the outside abdominal wall skin. Scope was withdrawn with the patient's oropharynx. Appropriate PEG tube apparatus attached to the tube. Patient tolerated procedure well and taken
--- NOTE | 2018-07-09 17:27 | PDOC PROGRESS REPORT ---
Subjective Progress Note for:: 07/09/18 Subjective:: Family at bedside. Patient is currently off enteral tube feeding pending tracheostomy and PEG tube placement later today. No reported fever or seizure activity. She remain on IV Vancomycin and Primaxin therapy. Reason For Visit: ACUTE RESPIRATORY FAILURE; VENTILATOR Physical Exam Vital Signs: Temp Pulse Resp BP Pulse Ox 97.5 F 59 L 16 126/54 H 96 07/09/18 06:00 07/09/18 04:00 07/09/18 04:00 07/09/18 04:00 07/09/18 04:00 Intake & Output 07/08/18 07/09/18 07/10/18 06:59 06:59 06:59 Intake Total 1230 2575 Output Total 1845 930 60 Balance -615 1645 -60 Weight 67 kg 69.9 kg Physical Exam: Sedated on ventilatory support. ET and OG tubes in situ. Off enteral tube feeding Head exam: PRESENT: atraumatic, normocephalic Eye exam: PRESENT: conjunctiva pink. ABSENT: scleral icterus Ear exam: PRESENT: normal external ear exam Mouth exam: PRESENT: moist - fairly moist Respiratory exam: PRESENT: clear to auscultation cas, decreased breath sounds - at lung bases Cardiovascular exam: PRESENT: RRR. ABSENT: diastolic murmur, rubs, systolic murmur Vascular exam: ABSENT: pallor GI/Abdominal exam: PRESENT: normal bowel sounds, soft. Extremities exam: ABSENT: pedal edema Musculoskeletal exam: PRESENT: normal inspection Neurological exam: PRESENT: altered - Sedated on titrated IV Propofol infusion Skin exam: PRESENT: dry, warm. ABSENT: cyanosis, rash Results Laboratory Results: 07/09/18 05:15 07/09/18 05:15 07/08/18 07/08/18 07/08/18 10:30 10:30 10:30 WBC 8.7 RBC 3.87 Hgb 10.0 L Hct 30.5 L MCV 79 L MCH 25.8 L MCHC 32.8 RDW 22.0 H Plt Count 300 Seg Neutrophils % 52.9 Lymphocytes % 19.4 Monocytes % 10.7 Eosinophils % 16.2 H Basophils % 0.8 Absolute Neutrophils 4.6 Absolute Lymphocytes 1.7 Absolute Monocytes 0.9 Absolute Eosinophils 1.4 H Absolute Basophils 0.1 Carbonic Acid 0.75 L HCO3/H2CO3 Ratio 29:1 ABG pH 7.57 H ABG pCO2 25.0 L ABG pO2 142.6 H ABG HCO3 22.2 ABG O2 Saturation 99.2 H ABG Base Excess 0.8 FiO2 35% Sodium 137.6 Potassium 4.5 Chloride 104 Carbon Dioxide 26 Anion Gap 8 BUN 11 Creatinine 0.37 L Est GFR ( Amer) > 60 Est GFR (Non-Af Amer) > 60 Glucose 119 H Calcium 7.7 L Phosphorus 4.9 H Magnesium 1.9 Total Bilirubin 0.1 L AST 23 ALT 18 Alkaline Phosphatase 132 H Total Protein 4.8 L Albumin 2.0 L Urine Color Urine Appearance Urine pH Ur Specific [place] Urine Protein Urine Glucose (UA) Urine Ketones Urine Blood Urine Nitrite Ur Leukocyte Esterase Urine WBC (Auto) Urine RBC (Auto) 07/08/18 07/09/18 07/09/18 14:15 05:15 05:15 WBC 9.3 RBC 3.58 L Hgb 9.3 L Hct 28.3 L MCV 79 L MCH 26.0 L MCHC 32.9 RDW 21.7 H Plt Count 272 Seg Neutrophils % Lymphocytes % Monocytes % Eosinophils % Basophils % Absolute Neutrophils Absolute Lymphocytes Absolute Monocytes Absolute Eosinophils Absolute Basophils Carbonic Acid 1.67 H HCO3/H2CO3 Ratio 15:1 ABG pH 7.28 L ABG pCO2 55.5 H ABG pO2 79.0 L ABG HCO3 25.4 ABG O2 Saturation 94.0 ABG Base Excess -2.3 FiO2 35% Sodium 136.2 L Potassium 4.4 Chloride 104 Carbon Dioxide 25 Anion Gap 7 BUN 12 Creatinine 0.46 L Est GFR ( Amer) > 60 Est GFR (Non-Af Amer) > 60 Glucose 127 H Calcium 7.9 L Phosphorus Magnesium Total Bilirubin AST ALT Alkaline Phosphatase Total Protein Albumin Urine Color Urine Appearance Urine pH Ur Specific [place] Urine Protein Urine Glucose (UA) Urine Ketones Urine Blood Urine Nitrite Ur Leukocyte Esterase Urine WBC (Auto) Urine RBC (Auto) 07/09/18 05:15 WBC RBC Hgb Hct MCV MCH MCHC RDW Plt Count Seg Neutrophils % Lymphocytes % Monocytes % Eosinophils % Basophils % Absolute Neutrophils Absolute Lymphocytes Absolute Monocytes Absolute Eosinophils Absolute Basophils Carbonic Acid HCO3/H2CO3 Ratio ABG pH ABG pCO2 ABG pO2 ABG HCO3 ABG O2 Saturation ABG Base Excess FiO2 Sodium Potassium Chloride Carbon Dioxide Anion Gap BUN Creatinine Est GFR ( Amer) Est GFR (Non-Af Amer) Glucose Calcium Phosphorus Magnesium Total Bilirubin AST ALT Alkaline Phosphatase Total Protein Albumin Urine Color YELLOW Urine Appearance SLIGHTLY-CLOUDY Urine pH 5.0 Ur Specific [place] 1.024 Urine Protein 30 H Urine Glucose (UA) NEGATIVE Urine Ketones TRACE H Urine Blood NEGATIVE Urine Nitrite NEGATIVE Ur Leukocyte Esterase SMALL H Urine WBC (Auto) 19 Urine RBC (Auto) 2 07/03/18 19:20 Blood Blood Culture - Final NO GROWTH IN 5 DAYS 07/02/18 20:22 Troponin I 0.024 NT-Pro-B Natriuret Pep 2160 H Impressions: Chest/Abdomen CTA 06/26/18 00:00 IMPRESSION: Large bilateral pleural effusions with bilateral airspace disease in the lower lobes likely atelectasis Multiple acute anterior bilateral rib fractures likely post resuscitation with chest compressions Thoracentesis Ultrasound 06/29/18 08:00 IMPRESSION: SUCCESSFUL THORACENTESIS USING ULTRASOUND GUIDANCE. Chest Ultrasound 07/02/18 00:00 IMPRESSION: Small residual left pleural effusion KUB X-Ray 07/02/18 20:37 IMPRESSION: Nasogastric tube tip and side port in the stomach. Grossly nonobstructive bowel gas pattern Head CT 07/03/18 21:00 IMPRESSION: NORMAL BRAIN CT WITHOUT CONTRAST. EVIDENCE OF ACUTE STROKE: NO. Chest X-Ray 07/08/18 05:00 IMPRESSION: IMPROVED AERATION IN THE RIGHT UPPER LOBE. Assessment & Plan - Diagnosis (1) Acute and chronic respiratory failure with hypercapnia Is this a current diagnosis for this admission?: Yes (2) SIRS with acute organ dysfunction due to infectious process Is this a current diagnosis for this admission?: Yes (3) Lobar pneumonia, unspecified organism Is this a current diagnosis for this admission?: Yes (4) Grecia infection, disseminated Is this a current diagnosis for this admission?: Yes (5) Anemia due to infection Is this a current diagnosis for this admission?: Yes (6) Decompensated COPD with exacerbation (chronic obstructive pulmonary disease) Is this a current diagnosis for this admission?: Yes (7) Chronic atrial fibrillation Is this a current diagnosis for this admission?: Yes (8) HTN (hypertension) Qualifiers: Hypertension type: essential hypertension Qualified Code(s): I10 - Essential (primary) hypertension Is this a current diagnosis for this admission?: Yes (9) HLD (hyperlipidemia) Qualifiers: Hyperlipidemia type: pure hypercholesterolemia Qualified Code(s): E78.00 - Pure hypercholesterolemia, unspecified Is this a current diagnosis for this admission?: Yes (10) GERD (gastroesophageal reflux disease) Qualifiers: Esophagitis presence: esophagitis presence not specified Qualified Code(s) : K21.9 - Gastro-esophageal reflux disease without esophagitis Is this a current diagnosis for this admission?: Yes (11) Anxiety Is this a current diagnosis for this admission?: Yes (12) Depression Qualifiers: Depression Type: major depressive disorder Major depression recurrence: recurrent Active/Remission status: currently active Psychotic features: without psychotic features Is this a current diagnosis for this admission?: Yes (13) Acute delirium Is this a current diagnosis for this admission?: Yes (14) Electrolyte imbalance Is this a current diagnosis for this admission?: Yes (15) Tonic-clonic seizure disorder Is this a current diagnosis for this admission?: Yes (16) Bilateral pleural effusion Is this a current diagnosis for this admission?: Yes (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 Within: Other - Inpatient Certification Based on my medical assessment, after consideration of the patient's comorbidities, presenting symptoms, or acuity I expect that the services needed warrant INPATIENT care.: Yes I certify that my determination is in accordance with my understanding of Medicare's requirements for reasonable and necessary INPATIENT services [42 CFR 412.3e].: Yes Medical Necessity: Need Close Monitoring Due to Risk of Patient Decompensation, Need For IV Fluids, Need For Continuous Telemetry Monitoring, Need for Nebulizer Therapy and Monitoring of Response, Need for IV Antibiotics, Risk of Complication if Not Cared For in Hospital Post Hospital Care: D/C or Transfer Summary - Plan Summary Plan Summary: Continue current medication management. Follow on EGD/PEG tube placement findings. Overall prognosis remain guided.
[2018-07-09] MEDS: VANCOMYCIN HCL 1,250 MG in DEXTROSE 5%-WATER 250 ML IV SCH (17:29)
--- NOTE | 2018-07-09 18:54 | RADIOLOGY REPORT (SQ) ---
EXAM DESCRIPTION: CHEST SINGLE VIEW COMPLETED DATE/TIME: 07/09/2018 6:47 pm REASON FOR STUDY: Status post tracheostomy tube placement COMPARISON: 07/08/2018 EXAM PARAMETERS: NUMBER OF VIEWS: One view. TECHNIQUE: Single frontal radiographic view of the chest acquired. RADIATION DOSE: NA LIMITATIONS: None. FINDINGS: LUNGS AND PLEURA: Patchy opacification in the right upper lobe. MEDIASTINUM AND HILAR STRUCTURES: No masses. Contour normal. HEART AND VASCULAR STRUCTURES: Heart normal in size. Normal vasculature. BONES: No acute findings. HARDWARE: Tracheostomy tube. Right internal jugular catheter in good position. OTHER: No other significant finding. IMPRESSION: Right upper lobe pneumonia. Tracheostomy tube placement. TECHNICAL DOCUMENTATION: JOB ID: [id number] [employer]- All Rights Reserved Reading location - IP/workstation name: [email or web address]
--- NOTE | 2018-07-10 00:56 | PROGRESS NOTE E ---
Progress Note NAME: SOHA DORSEY : 1945 AGE: 73Y DATE: 07/09/2018 ROOM: 612 SUBJECTIVE: The patient is a 73-year-old female who came in with respiratory failure requiring invasive mechanical ventilation. The patient had a tracheostomy tube placed today, and G-tube placed. The patient tolerated the procedure well. There was no adverse event. No fever in the last 24 hours. Decreased endotracheal tube secretions. No vomiting, no diarrhea. OBJECTIVE: GENERAL: The patient appears sedated, afebrile. No apparent respiratory distress. VITAL SIGNS: Temperature 97.3, T-max of 97.6. Heart rate 60 beats per minute, blood pressure 110/70, respirations 20, saturation 100% on FiO2 of 30%. EYES: No conjunctival pallor. ENT: No ear drainage and no nasal discharge. HEAD/NECK: No scalp swelling or hematoma. Tracheostomy tube is in place. CHEST/LUNGS: No wheezing, no rhonchi, no coarse crackles. CARDIOVASCULAR: S1, S2. No murmur. ABDOMEN: G-tube placed. No apparent bruising or hematoma. EXTREMITIES: No joint swelling or cellulitis. LABORATORY: CBC done today shows white count 19.3, hemoglobin 9.3, hematocrit 28.3. ABG done today shows pH 7.39, pCO2 of 45.2, pO2 of 193, and oxygen saturation is 97%. Chemistry done today showed sodium 136, potassium 4.4, chloride 104, CO2 is 25, BUN 12, creatinine 0.46, glucose 127. Calcium 7.9. ASSESSMENT: 1. ACUTE ON CHRONIC RESPIRATORY FAILURE. The patient is on mechanical ventilation. Status post tracheostomy tube placement and G-tube placement. 2. PNEUMONIA. Appears to be improving. 3. HYPOTENSION. Appears to be resolved. 4. SEVERE ANXIETY. PLAN: Will continue ventilator support. Will try to wean off IV sedation, dose minimal. DICTATING PHYSICIAN: ML MARQUIS MD,JACQUIE,MPH [id number] PHY#: [id number] [id number] JOB#: [id number] ACCT: [id number] cc: > MTDD
[2018-07-10] MEDS: IPRATROPIUM/ALBUTEROL 0.5-2.5 MG/3 ML AMPUL NEB SCH ×4 (01:58→21:20)
[2018-07-10] MEDS: DIPHENHYDRAMINE HCL 25 MG CAPSULE PO SCH ×4 (02:07→20:52)
[2018-07-10] MEDS: IMIPENEM/CILASTATIN SODIUM 500 MG in NORMAL SALINE 100 ML IV SCH ×3 (03:26→14:42)
[2018-07-10] MEDS: PROPOFOL 1,000 MG/100 ML INFUS..BTL IV PRN ×2 (04:38→09:03)
[2018-07-10] MEDS: PHENYTOIN 100 MG/4 ML SUSP NG SCH ×3 (06:28→21:14)
[2018-07-10] MEDS: GABAPENTIN 400 MG CAPSULE NG SCH ×3 (06:29→21:15)
[2018-07-10] MEDS: LANSOPRAZOLE 30 MG TAB.RAP.DR NG SCH (06:29)
--- NOTE | 2018-07-10 08:07 | PDOC PROGRESS REPORT ---
Subjective Progress Note for:: 07/10/18 Subjective:: Patient remain intubated and vent supported. No reported fever. No diarrhea. Post tracheostomy and PEG tube placement. Reason For Visit: ACUTE RESPIRATORY FAILURE; VENTILATOR Physical Exam Vital Signs: Temp Pulse Resp BP Pulse Ox 97.2 F 78 20 105/45 L 99 07/10/18 06:00 07/10/18 07:49 07/10/18 01:58 07/09/18 22:00 07/10/18 04:00 Intake & Output 07/09/18 07/10/18 07/11/18 06:59 06:59 06:59 Intake Total 2675 773 Output Total 930 1520 Balance 1745 -747 Weight 69.9 kg 70.7 kg Physical Exam: Sedated on ventilatory support. Tracheostomy site satisfactory. Head exam: PRESENT: atraumatic, normocephalic Eye exam: PRESENT: conjunctiva pink. ABSENT: scleral icterus Ear exam: PRESENT: normal external ear exam Mouth exam: PRESENT: moist - fairly moist Respiratory exam: PRESENT: clear to auscultation cas, decreased breath sounds - at lung bases Cardiovascular exam: PRESENT: RRR. ABSENT: diastolic murmur, rubs, systolic murmur Vascular exam: ABSENT: pallor GI/Abdominal exam: PRESENT: normal bowel sounds, soft. PEG tube site satisfactory. Extremities exam: ABSENT: pedal edema Musculoskeletal exam: PRESENT: normal inspection, some degree of edema. Neurological exam: PRESENT: altered - Sedated on titrated IV Propofol infusion Skin exam: PRESENT: dry, warm. ABSENT: cyanosis, rash Results Laboratory Results: 07/09/18 05:15 07/10/18 06:20 07/09/18 07/10/18 11:30 06:20 Carbonic Acid 1.36 H HCO3/H2CO3 Ratio 19:1 ABG pH 7.39 ABG pCO2 45.2 H ABG pO2 93.5 ABG HCO3 26.6 H ABG O2 Saturation 97.0 ABG Base Excess 1.3 FiO2 35% Sodium Cancelled Potassium Cancelled Chloride Cancelled Carbon Dioxide Cancelled Anion Gap Cancelled BUN Cancelled Creatinine Cancelled Est GFR ( Amer) Cancelled Est GFR (Non-Af Amer) Cancelled Glucose Cancelled Calcium Cancelled 07/02/18 20:22 Troponin I 0.024 NT-Pro-B Natriuret Pep 2160 H Impressions: Chest/Abdomen CTA 06/26/18 00:00 IMPRESSION: Large bilateral pleural effusions with bilateral airspace disease in the lower lobes likely atelectasis Multiple acute anterior bilateral rib fractures likely post resuscitation with chest compressions Thoracentesis Ultrasound 06/29/18 08:00 IMPRESSION: SUCCESSFUL THORACENTESIS USING ULTRASOUND GUIDANCE. Chest Ultrasound 07/02/18 00:00 IMPRESSION: Small residual left pleural effusion KUB X-Ray 07/02/18 20:37 IMPRESSION: Nasogastric tube tip and side port in the stomach. Grossly nonobstructive bowel gas pattern Head CT 07/03/18 21:00 IMPRESSION: NORMAL BRAIN CT WITHOUT CONTRAST. EVIDENCE OF ACUTE STROKE: NO. Chest X-Ray 07/09/18 00:00 IMPRESSION: Right upper lobe pneumonia. Tracheostomy tube placement. Assessment & Plan - Diagnosis (1) Acute and chronic respiratory failure with hypercapnia Is this a current diagnosis for this admission?: Yes (2) SIRS with acute organ dysfunction due to infectious process Is this a current diagnosis for this admission?: Yes (3) Lobar pneumonia, unspecified organism Is this a current diagnosis for this admission?: Yes (4) [place] infection, disseminated Is this a current diagnosis for this admission?: Yes (5) Anemia due to infection Is this a current diagnosis for this admission?: Yes (6) Decompensated COPD with exacerbation (chronic obstructive pulmonary disease) Is this a current diagnosis for this admission?: Yes (7) Chronic atrial fibrillation Is this a current diagnosis for this admission?: Yes (8) HTN (hypertension) Qualifiers: Hypertension type: essential hypertension Qualified Code(s): I10 - Essential (primary) hypertension Is this a current diagnosis for this admission?: Yes (9) HLD (hyperlipidemia) Qualifiers: Hyperlipidemia type: pure hypercholesterolemia Qualified Code(s): E78.00 - Pure hypercholesterolemia, unspecified Is this a current diagnosis for this admission?: Yes (10) GERD (gastroesophageal reflux disease) Qualifiers: Esophagitis presence: esophagitis presence not specified Qualified Code(s) : K21.9 - Gastro-esophageal reflux disease without esophagitis Is this a current diagnosis for this admission?: Yes (11) Anxiety Is this a current diagnosis for this admission?: Yes (12) Depression Qualifiers: Depression Type: major depressive disorder Major depression recurrence: recurrent Active/Remission status: currently active Psychotic features: without psychotic features Is this a current diagnosis for this admission?: Yes (13) Acute delirium Is this a current diagnosis for this admission?: Yes (14) Electrolyte imbalance Is this a current diagnosis for this admission?: Yes (15) Tonic-clonic seizure disorder Is this a current diagnosis for this admission?: Yes (16) Bilateral pleural effusion Is this a current diagnosis for this admission?: Yes (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 Is this a current diagnosis for this admission?: Yes - Time Time Spent with patient: 25-34 minutes Medications reviewed and adjusted accordingly: Yes Anticipated discharge: Other - LTAC in [place], [place] Within: Other - Inpatient Certification Based on my medical assessment, after consideration of the patient's comorbidities, presenting symptoms, or acuity I expect that the services needed warrant INPATIENT care.: Yes I certify that my determination is in accordance with my understanding of Medicare's requirements for reasonable and necessary INPATIENT services [42 CFR 412.3e].: Yes Medical Necessity: Need Close Monitoring Due to Risk of Patient Decompensation, Need For IV Fluids, Need For Continuous Telemetry Monitoring, Need for Nebulizer Therapy and Monitoring of Response, Need for IV Antibiotics, Risk of Complication if Not Cared For in Hospital Post Hospital Care: D/C or Transfer Summary - Plan Summary Plan Summary: See attending physician orders. Continue IV Vancomycin and Primaxin coverage.
[2018-07-10] MEDS ORDERED: FUROSEMIDE INJ/PF 40 MG/4 ML SDV IV ONE (08:09)
[2018-07-10] MEDS: OXYCODONE-ACETAMINOPHEN 5-325 MG TABLET NG PRN ×2 (08:59→17:30)
[2018-07-10] MEDS: DIGOXIN 0.25 MG TABLET NG SCH (09:00)
[2018-07-10] MEDS: GUAIFENESIN SYRP 200 MG/10 ML UDC NG PRN ×2 (09:01→17:30)
[2018-07-10] MEDS: MULTIVIT-STRESS FORMULA/ZINC TABLET NG SCH (09:01)
[2018-07-10] MEDS: DOCUSATE SODIUM 100 MG CAPSULE PO SCH ×2 (09:04→17:31)
[2018-07-10] MEDS: CLONAZEPAM 1 MG TABLET PO PRN ×2 (09:28→21:14)
[2018-07-10 09:50] LABS: ANION GAP 9 (5-19); BLOOD UREA NITROGEN 10 mg/dL (7-20); CARBON DIOXIDE 24 mmol/L (22-30); CHLORIDE 105 mmol/L (98-107); GLUCOSE 134 mg/dL (75-110); POTASSIUM 3.9 mmol/L (3.6-5.0)
[2018-07-10 19:25] LABS: VANCOMYCIN,TROUGH 19.5 ug/mL (5.0-20.0)
[2018-07-11] MEDS: IPRATROPIUM/ALBUTEROL 0.5-2.5 MG/3 ML AMPUL NEB SCH ×2 (01:09→08:21)
[2018-07-11] MEDS: OXYCODONE-ACETAMINOPHEN 5-325 MG TABLET NG PRN (04:44)
[2018-07-11 04:45] LABS: HEMATOCRIT 28.6 % (36.0-47.0); HEMOGLOBIN 9.5 g/dL (12.0-15.5); MEAN CORPUSCULAR HEMOGLOBIN 25.7 pg (27.0-33.4); MEAN CORPUSCULAR HGB CONC 33.2 g/dL (32.0-36.0); MEAN CORPUSCULAR VOLUME 77 fl (80-97); PLATELET COUNT 337 10^3/uL (150-450); RED BLOOD COUNT 3.69 10^6/uL (3.72-5.28); RED CELL DISTRIBUTION WIDTH 21.9 % (11.5-14.0); WHITE BLOOD COUNT 10.8 10^3/uL (4.0-10.5)
[2018-07-11 04:55] LABS: ANION GAP 9 (5-19); BLOOD UREA NITROGEN 8 mg/dL (7-20); CALCIUM 7.5 mg/dL (8.4-10.2); CARBON DIOXIDE 28 mmol/L (22-30); CHLORIDE 103 mmol/L (98-107); GLUCOSE 121 mg/dL (75-110); POTASSIUM 3.2 mmol/L (3.6-5.0); SODIUM 140.1 mmol/L (137-145)
[2018-07-11] MEDS: GABAPENTIN 400 MG CAPSULE NG SCH (06:21)
[2018-07-11] MEDS: CLONAZEPAM 1 MG TABLET PO PRN (06:21)
[2018-07-11] MEDS: LANSOPRAZOLE 30 MG TAB.RAP.DR NG SCH (06:21)
[2018-07-11] MEDS: PHENYTOIN 100 MG/4 ML SUSP NG SCH (06:34)
[2018-07-11 06:53] LABS: APPEARANCE,URINE SLIGHTLY-CLOUDY; BILIRUBIN,URINE NEGATIVE (NEGATIVE); CALCIUM OXALATE CRYSTALS,URINE RARE /HPF; COLOR,URINE YELLOW; GLUCOSE, URINE NEGATIVE (NEGATIVE); KETONES,URINE TRACE mg/dL (NEGATIVE); LEUKOCYTE ESTERASE,URINE TRACE (NEGATIVE); NITRITE,URINE NEGATIVE (NEGATIVE); PROTEIN,URINE 30 mg/dL (NEGATIVE); URINE SPECIFIC GRAVITY 1.019
[2018-07-11 08:07] VITALS: BP 147/50
--- NOTE | 2018-07-11 08:53 | PDOC TRANSFER SUMMARY ---
General Admission Date/PCP: 05/24/18 19:53 STELLA NESBITT Transfer Date: 07/11/18 Accepting Facility: Other (Comments) - LTAC facility [facility] Resuscitation Status: Do Not Resuscitate - Transfer Diagnosis (1) Acute and chronic respiratory failure with hypercapnia Is this a current diagnosis for this admission?: Yes (2) SIRS with acute organ dysfunction due to infectious process Is this a current diagnosis for this admission?: Yes (3) Lobar pneumonia, unspecified organism Is this a current diagnosis for this admission?: Yes (4) Grecia infection, disseminated Is this a current diagnosis for this admission?: Yes (5) Anemia due to infection Is this a current diagnosis for this admission?: Yes (6) Decompensated COPD with exacerbation (chronic obstructive pulmonary disease) Is this a current diagnosis for this admission?: Yes (7) Chronic atrial fibrillation Is this a current diagnosis for this admission?: Yes (8) HTN (hypertension) Is this a current diagnosis for this admission?: Yes (9) HLD (hyperlipidemia) Is this a current diagnosis for this admission?: Yes (10) GERD (gastroesophageal reflux disease) Is this a current diagnosis for this admission?: Yes (11) Anxiety Is this a current diagnosis for this admission?: Yes (12) Depression Is this a current diagnosis for this admission?: Yes (13) Acute delirium Is this a current diagnosis for this admission?: Yes (14) Electrolyte imbalance Is this a current diagnosis for this admission?: Yes (15) Tonic-clonic seizure disorder Is this a current diagnosis for this admission?: Yes (16) Bilateral pleural effusion Is this a current diagnosis for this admission?: Yes (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 Is this a current diagnosis for this admission?: Yes - Transfer Medications Home Medications: Acetazolamide [Diamox 250 mg Tab] 250 mg PO DAILY 02/08/17 Apixaban [Eliquis 5 mg Tablet] 5 mg PO BID 02/08/17 Clonazepam [Klonopin 0.25 mg Tablet Rapid Dissolve] 0.25 mg SL QHS 02/08/17 Furosemide [Lasix] 20 mg PO DAILY 02/08/17 Gabapentin [Neurontin] 800 mg PO TID 02/08/17 Multivit-Min/Iron/Folic/Lutein [Centrum Silver Women Tablet] 1 tab PO DAILY Omeprazole 40 mg PO DAILY 02/08/17 Tiotropium [place] [Spiriva Respimat] 1 puff IH DAILY 02/08/17 Albuterol Sulfate [Proair HFA Inhalation Aerosol 8.5 gm MDI] 2 puff IH BIDP PRN 05/25/18 Fluticasone Propionate [Flonase Nasal [place] 50 Mcg/[place] 16 gm] 2 spray NASL DAILYP PRN 05/25/18 Fluticasone Propionate [Flovent HFA 220 mcg MDI] 2 puff IH BID 05/25/18 Potassium Chloride [Klor-Con M20] 20 meq PO DAILY 05/25/18 Roflumilast [Daliresp] 250 mcg PO DAILY 05/25/18 Valsartan [Diovan 160 mg Tablet] 160 mg PO DAILY 05/25/18 Transfer Medications: Current Medications Acetaminophen (Tylenol Soln 325 Mg/10.15 Ml Udcup) 650 mg NG Q4HP PRN PRN Reason: FOR MILD PAIN OR TEMP Stop: 08/07/18 22:52 Albuterol (Ventolin 0.083% Neb 2.5 Mg/3 Ml Ampul) 2.5 mg NEB RTQ6HP PRN PRN Reason: SHORTNESS OF BREATH Stop: 07/29/18 09:10 Last Admin: 06/18/18 07:34 Dose: Not Given Albuterol/Ipratropium (Duoneb 3 Ml Ampul) 3 ml NEB RTQ6 EDER Stop: 07/29/18 13:59 Last Admin: 07/11/18 08:21 Dose: 3 ml Clonazepam (Klonopin 1 Mg Tablet) 0.5 mg PO Q8HP PRN Stop: 07/17/18 09:05 Last Admin: 07/11/18 06:21 Dose: 0.5 mg Dextrose (Dextrose Inj 50% Syringe (25 Gm/50 Ml)) 12.5 gm IV PRN PRN; Protocol PRN Reason: FOR BG 50-69 IN ALERT PATIENT Stop: 07/29/18 23:35 Dextrose (Dextrose Inj 50% Syringe (25 Gm/50 Ml)) 25 gm IV PRN PRN PRN Reason: Protocol Stop: 07/29/18 23:35 Digoxin (Lanoxin 0.25 Mg Tablet) 0.25 mg NG DAILY EDER Stop: 08/02/18 09:59 Last Admin: 07/10/18 09:00 Dose: 0.25 mg Docusate Sodium (Colace 100 Mg Capsule) 100 mg PO BID EDER Stop: 08/02/18 19:59 Last Admin: 07/10/18 17:31 Dose: Not Given Gabapentin (Neurontin 400 Mg Capsule) 800 mg NG Q8 EDER Stop: 08/01/18 21:59 Last Admin: 07/11/18 06:21 Dose: 800 mg Glucagon (Glucagen Inj 1 Mg Vial) 1 mg IM PRN PRN; Protocol PRN Reason: EVALUATE FOR BG < 70 Stop: 07/29/18 23:35 Glucose (Glutose 40% Gel 15 Gm Tube) 15 gm PO PRN PRN; Protocol PRN Reason: FOR BG 50-69 IN ALERT PATIENT Stop: 07/29/18 23:35 Glucose (Glutose 40% Gel 15 Gm Tube) 30 gm PO PRN PRN; Protocol PRN Reason: FOR BG < 50 IN ALERT PATIENT Stop: 07/29/18 23:35 Guaifenesin (Robitussin Syrup 200 Mg/10 Ml Ud Cup) 400 mg NG Q6HP PRN PRN Reason: COUGH Stop: 08/01/18 20:43 Last Admin: 07/10/18 17:30 Dose: 400 mg Heparin Sodium (Porcine) (Heparin Flush 10 Unit/Ml 5 Ml Disp.Syrg) 30 unit IV Q8 EDER Stop: 07/26/18 13:59 Last Admin: 07/11/18 06:21 Dose: 30 unit Heparin Sodium (Porcine) (Heparin Flush 10 Unit/Ml 5 Ml Disp.Syrg) 30 unit IV .AFTER EACH USE PRN PRN Reason: AFTER EACH INTERMITTENT USE Stop: 07/26/18 10:42 Last Admin: 06/30/18 13:36 Dose: 30 unit Norepinephrine Bitartrate 4 mg (/ Dextrose) 250 mls @ 0 mls/hr IV CONTINUOUS PRN; Protocol; Titrate PRN Reason: THIS MED IS NOT "PRN" Stop: 08/02/18 05:59 Last Titration: 07/08/18 19:00 Dose: 0 mcg/min, 0 mls/hr Propofol (Diprivan Rtu 1000 Mg/100 Ml Inf.Bottle) 1,000 mg in 100 mls @ 0 mls/ hr IV CONTINUOUS PRN; Protocol; Titrate PRN Reason: THIS MED IS NOT "PRN" Stop: 08/05/18 20:57 Last Titration: 07/10/18 18:56 Dose: 0 mcg/kg/min, 0 mls/hr Midazolam HCl (Versed Rtu 50 Mg/100 Ml Premix Bag) 50 mg in 100 mls @ 0 mls/hr IV CONTINUOUS PRN; Protocol; Titrate PRN Reason: THIS MED IS NOT "PRN" Stop: 07/15/18 22:56 Last Titration: 07/10/18 10:00 Dose: 0 mg/hr, 0 mls/hr Insulin Human Lispro (Humalog Insulin 100 Unit/1 Ml 3 Ml Vial) 0 - 12 unit SUBCUT Q6HP PRN PRN Reason: Protocol Stop: 08/07/18 22:50 Lansoprazole (Prevacid 30 Mg Odt Tablet) 30 mg NG Q6AM EDER Stop: 08/01/18 21:59 Last Admin: 07/11/18 06:21 Dose: 30 mg Oxycodone/Acetaminophen (Percocet 5-325 Mg Tablet) 1 tab NG Q8HP PRN PRN Reason: MODERATE PAIN Stop: 07/15/18 22:52 Last Admin: 07/11/18 04:44 Dose: 1 tab Pharmacy Profile Note (Medication Communication Order) 1 each MC .NOTICE NR Stop: 08/01/18 20:44 Phenytoin (Dilantin 100 Mg/4 Ml Susp) 100 mg NG Q8 EDER Stop: 08/01/18 21:59 Last Admin: 07/11/18 06:34 Dose: 100 mg Sodium Chloride (Saline Flush 2.5 Ml Monoject Prefil Syrin) 2.5 ml IV Q8 EDER Stop: 08/01/18 21:59 Last Admin: 07/11/18 06:34 Dose: Not Given Vitamin B Complex/Vit C/Vit E/Zinc (Zbec Tablet) 1 tab NG DAILY EDER Stop: 08/02/18 09:59 Last Admin: 07/10/18 09:01 Dose: 1 tab - Allergies Allergies/Adverse Reactions: adhesive tape [Adhesive Tape] Allergy (Severe, Verified 05/25/18 10:16) peels skin off ceftriaxone sodium [From Rocephin] Allergy (Severe, Verified 05/25/18 10:16) redness/itch lorazepam [From Ativan] Adverse Reaction (Severe, Verified 05/26/18 13:33) Hallucinations Hospital Course Hospital Course: Patient was admitted for acute on chronic respiratory failure with exacerbated COPD and pneumonia. Her early stay in the hospital was complicated by worsening work of breathing and eventual need for intubation and ventilatory support. She was transferred from [facility] to ICU with Dr Brenner providing pulmonary consultation input. She was subsequently successfully extubated and return to [facility]. Patient developed severe hypertension that resulted in hypertensive encephalopathy and recurrent seizure activities twice. She was intubated due to briefed episode of respiratory arrest and need for cardiopulmonary resuscitation. She was subsequently transferred to ICU with Dr Heath providing pulmonary consultation. She was eventually successfully extubated and returned to IMCU status. Due to her baseline anxiety problem patient decompensated on BiPAP ventilatory support and was reintubated with need for transfer back to ICU. Dr Brenner provided pulmonary consultation on the case at this time. Her family eventually agreed to tracheostomy and PEG tube placement. These procedures were completed by Dr Menezes, general surgeon. Post operatively she has remain stable and tolerating medical management. 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 There was growth of candidal species in urine as well as Staphy. species in blood. Her infectious states were adequately treated with appropriate antibiotic and antifungal agents. Presently there is no clinical indices suggestive of ongoing infection. There is no recurrent seizure activities. Her blood pressure is currently adequately managed on current anti hypertensive medications. She had right sided thoracentesis twice and transfusion of three units of PRBC during this hospitalization. Her chest X ray did revealed multiple rib fractures related to her CPR intervention during this hospitalization. She will be transferred to [facility] facility in [place] for gradual but eventual weaning off ventilatory support. Physical Exam Vital Signs: Temp Pulse Resp BP Pulse Ox 98.1 F 78 31 H 147/50 H 97 07/11/18 08:00 07/11/18 08:00 07/11/18 08:00 07/11/18 08:00 07/11/18 08:00 Intake & Output 07/10/18 07/11/18 07/12/18 06:59 06:59 06:59 Intake Total 1023 1060 Output Total 1520 3300 Balance -497 -2240 Weight 70.7 kg 70.7 kg Awake on ventilatory support. Tracheostomy site satisfactory. Head exam: PRESENT: atraumatic, normocephalic Eye exam: PRESENT: conjunctiva pink. ABSENT: scleral icterus Ear exam: PRESENT: normal external ear exam Mouth exam: PRESENT: moist - fairly moist Respiratory exam: PRESENT: minimal expiratory rhonchi, decreased breath sounds - at lung bases Cardiovascular exam: PRESENT: RRR. ABSENT: diastolic murmur, rubs, systolic murmur Vascular exam: ABSENT: pallor GI/Abdominal exam: PRESENT: normal bowel sounds, soft. PEG tube site satisfactory. Extremities exam: ABSENT: pedal edema Musculoskeletal exam: PRESENT: normal inspection, some degree of edema. Neurological exam: PRESENT: Awake and appropriately follow commands. Skin exam: PRESENT: dry, warm. ABSENT: cyanosis, rash Results Laboratory Results: 07/11/18 04:35 07/11/18 04:35 07/10/18 07/10/18 07/11/18 09:15 18:30 04:35 WBC RBC Hgb Hct MCV MCH MCHC RDW Plt Count Sodium 138.0 140.1 Potassium 3.9 3.2 L Chloride 105 103 Carbon Dioxide 24 28 Anion Gap 9 9 BUN 10 8 Creatinine 0.38 L 0.41 L 0.42 L Est GFR ( Amer) > 60 > 60 > 60 Est GFR (Non-Af Amer) > 60 > 60 > 60 Glucose 134 H 121 H Calcium 8.0 L 7.5 L Urine Color Urine Appearance Urine pH Ur Specific [place] Urine Protein Urine Glucose (UA) Urine Ketones Urine Blood Urine Nitrite Ur Leukocyte Esterase Urine WBC (Auto) Urine RBC (Auto) Stool Occult Blood 07/11/18 07/11/18 07/11/18 04:35 06:30 06:30 WBC 10.8 H RBC 3.69 L Hgb 9.5 L Hct 28.6 L MCV 77 L MCH 25.7 L MCHC 33.2 RDW 21.9 H Plt Count 337 Sodium Potassium Chloride Carbon Dioxide Anion Gap BUN Creatinine Est GFR ( Amer) Est GFR (Non-Af Amer) Glucose Calcium Urine Color YELLOW Urine Appearance SLIGHTLY-CLOUDY Urine pH 5.0 Ur Specific [place] 1.019 Urine Protein 30 H Urine Glucose (UA) NEGATIVE Urine Ketones TRACE H Urine Blood NEGATIVE Urine Nitrite NEGATIVE Ur Leukocyte Esterase TRACE H Urine WBC (Auto) 9 Urine RBC (Auto) 5 Stool Occult Blood NEGATIVE 07/02/18 20:22 Troponin I 0.024 NT-Pro-B Natriuret Pep 2160 H Impressions: Chest/Abdomen CTA 06/26/18 00:00 IMPRESSION: Large bilateral pleural effusions with bilateral airspace disease in the lower lobes likely atelectasis Multiple acute anterior bilateral rib fractures likely post resuscitation with chest compressions Thoracentesis Ultrasound 06/29/18 08:00 IMPRESSION: SUCCESSFUL THORACENTESIS USING ULTRASOUND GUIDANCE. Chest Ultrasound 07/02/18 00:00 IMPRESSION: Small residual left pleural effusion KUB X-Ray 07/02/18 20:37 IMPRESSION: Nasogastric tube tip and side port in the stomach. Grossly nonobstructive bowel gas pattern Head CT 07/03/18 21:00 IMPRESSION: NORMAL BRAIN CT WITHOUT CONTRAST. EVIDENCE OF ACUTE STROKE: NO. Chest X-Ray 07/09/18 00:00 IMPRESSION: Right upper lobe pneumonia. Tracheostomy tube placement. Plan Discharge Plan: Transfer to [facility] in [place], [place] today when bed is allocated and transportation arrangement completed. Time Spent: Greater than 30 Minutes - In care cordination and discussion with family.
--- NOTE | 2018-07-11 14:00 | PROGRESS NOTE E ---
Progress Note NAME: SOHA DORSEY : 1945 AGE: 73Y DATE: 07/10/2018 ROOM: 612 SUBJECTIVE: The patient is a 73-year-old female who came in with acute respiratory failure requiring invasive mechanical ventilation and pneumonia. Been intubated multiple times, total 3 times on this admission. Had a tracheostomy placed yesterday. Appeared to be more awake. Had scanty endotracheal tube secretions. No fever in the last 24 hours. Tolerating the G-tube feeding. No vomiting, no diarrhea. Patient is scheduled for transfer to LTAC tomorrow morning. OBJECTIVE: GENERAL: The patient is awake, alert, oriented x3. VITAL SIGNS: Temperature 99.5. Heart rate of 80. Blood pressure is 134/61, respirations 25 and saturation is 95% on FiO2 of 30%. SIMV of 20, PEEP of 5, pressure support of 10. EYES: No conjunctival pallor. EAR, NOSE, THROAT: No ear drainage and no nasal discharge. Orotracheal tube is in place. Endotracheal tube is in place. HEAD/NECK: Tracheostomy tube is in place. CHEST/LUNGS: No wheezing, no rhonchi, no coarse crackles. CARDIOVASCULAR: S1, S2 distinct. No murmur. Regular rate and rhythm. ABDOMEN: Flabby. Positive bowel sounds. Soft, nondistended. EXTREMITIES: No joint swelling or cellulitis. LABORATORY: Chemistry on 07/10/2018 done showed sodium 138, potassium 3.9, chloride 105, CO2 is 24, BUN 10, creatinine 0.38, glucose 134. Calcium 8.0. Chest x-ray shows no pneumothorax, no new infiltrates. ASSESSMENT: 1. ACUTE ON CHRONIC RESPIRATORY FAILURE REQUIRING INVASIVE MECHANICAL VENTILATION. STATUS POST TRACHEOSTOMY CURRENTLY APPEARS STABLE. 2. PNEUMONIA. Appears to be improving. 3. SEVERE COPD- APPEARED STABLE AND NOT IN ACUTE EXACERBATION. 4. HISTORY OF CONGESTIVE HEART FAILURE WITH BILATERAL PLEURAL EFFUSION, FAIRLY SMALL, STATUS POST THORACENTESIS. PLAN: Agree with plan of LTAC transfer.. Patient may need primaxin for a few more days but patient will be completing one week of Primaxin today. Currently not on vancomycin. Continue GI prophylaxis. Prevacid 30 mg daily and DVT prophylaxis Lovenox. Continue nebulizer treatment every 6 hours. DICTATING PHYSICIAN: ML MARQUIS MD,JACQUIE,MPH [id number] [id number] [id number] JOB#: [id number] ACCT: [id number] cc: > ANTONYD
== END 2018-07-11 09:25 | DRG 3 ==
LOC: ER 17:31 → EH 19:53 → ICU 05-25 00:55 → 3W 06-07 14:38 → ICU 06-14 02:43 → 3S 06-23 12:46 → ICU 07-02 20:00
PROVIDERS: ADMIT Internal Medicine Geriatric Medicine; ATTEND Internal Medicine Geriatric Medicine
PROC: 02H633Z Insertion of Infusion Device into Right Atrium, Percutaneous Approach (ICD-10-PCS; 2018-05-24)
PROC: 3E0F73Z Introduction of Anti-inflammatory into Respiratory Tract, Via Natural or Artificial Opening (ICD-10-PCS; 2018-05-25)
PROC: 5A09557 Assistance with Respiratory Ventilation, Greater than 96 Consecutive Hours, Continuous Positive Airway Pressure (ICD-10-PCS; 2018-05-25)
PROC: 5A1955Z Respiratory Ventilation, Greater than 96 Consecutive Hours (ICD-10-PCS; principal; 2018-05-28)
PROC: 0BH17EZ Insertion of Endotracheal Airway into Trachea, Via Natural or Artificial Opening (ICD-10-PCS; 2018-05-28)
PROC: 0B9C8ZZ Drainage of Right Upper Lung Lobe, Via Natural or Artificial Opening Endoscopic (ICD-10-PCS; 2018-05-29)
PROC: 30233N1 Transfusion of Nonautologous Red Blood Cells into Peripheral Vein, Percutaneous Approach (ICD-10-PCS; 2018-05-31)
PROC: 0BH17EZ Insertion of Endotracheal Airway into Trachea, Via Natural or Artificial Opening (ICD-10-PCS; 2018-06-14)
PROC: 5A1955Z Respiratory Ventilation, Greater than 96 Consecutive Hours (ICD-10-PCS; 2018-06-14)
PROC: 30233N1 Transfusion of Nonautologous Red Blood Cells into Peripheral Vein, Percutaneous Approach (ICD-10-PCS; 2018-06-17)
PROC: 0W993ZX Drainage of Right Pleural Cavity, Percutaneous Approach, Diagnostic (ICD-10-PCS; 2018-06-22)
PROC: 5A12012 Performance of Cardiac Output, Single, Manual (ICD-10-PCS; 2018-06-26)
PROC: 0W993ZX Drainage of Right Pleural Cavity, Percutaneous Approach, Diagnostic (ICD-10-PCS; 2018-06-29)
PROC: 0B110F4 Bypass Trachea to Cutaneous with Tracheostomy Device, Open Approach (ICD-10-PCS; 2018-07-02)
PROC: 5A1955Z Respiratory Ventilation, Greater than 96 Consecutive Hours (ICD-10-PCS; 2018-07-02)
PROC: 0DH63UZ Insertion of Feeding Device into Stomach, Percutaneous Approach (ICD-10-PCS; 2018-07-09)
DX: A41.02 Sepsis due to Methicillin resistant Staphylococcus aureus (principal); S22.43XA Multiple fractures of ribs, bilateral, initial encounter for closed fracture; J96.21 Acute and chronic respiratory failure with hypoxia; J18.1 Lobar pneumonia, unspecified organism; J96.22 Acute and chronic respiratory failure with hypercapnia; R65.21 Severe sepsis with septic shock; J15.212 Pneumonia due to Methicillin resistant Staphylococcus aureus; J44.1 Chronic obstructive pulmonary disease with (acute) exacerbation; J91.8 Pleural effusion in other conditions classified elsewhere; I67.4 Hypertensive encephalopathy; N39.0 Urinary tract infection, site not specified; Z78.1 Physical restraint status; B37.9 Candidiasis, unspecified; D63.8 Anemia in other chronic diseases classified elsewhere; I48.2 Chronic atrial fibrillation; E78.00 Pure hypercholesterolemia, unspecified; Z66 Do not resuscitate; K21.9 Gastro-esophageal reflux disease without esophagitis; F41.9 Anxiety disorder, unspecified; F32.9 Major depressive disorder, single episode, unspecified; R41.0 Disorientation, unspecified; E87.8 Other disorders of electrolyte and fluid balance, not elsewhere classified; G40.409 Other generalized epilepsy and epileptic syndromes, not intractable, without status epilepticus; X58.XXXA Exposure to other specified factors, initial encounter; Y92.239 Unspecified place in hospital as the place of occurrence of the external cause; I50.9 Heart failure, unspecified; J44.9 Chronic obstructive pulmonary disease, unspecified; M19.90 Unspecified osteoarthritis, unspecified site; I11.0 Hypertensive heart disease with heart failure; K29.70 Gastritis, unspecified, without bleeding; F17.210 Nicotine dependence, cigarettes, uncomplicated; Z90.49 Acquired absence of other specified parts of digestive tract; Z79.899 Other long term (current) drug therapy; Z88.1 Allergy status to other antibiotic agents; Z88.8 Allergy status to other drugs, medicaments and biological substances; E87.6 Hypokalemia
CPT/HCPCS: 00320; 31500; 31624; 32555; 36415; 36430; 36600; 43246; 70450; 71045; 71275; 74018; 76604; 80048; 80053; 80162; 80170; 80185; 80202; 81001; 82040; 82271; 82272; 82533; 82550; 82553; 82565; 82785; 82803; 82945; 82962; 83605; 83615; 83735; 83880; 84100; 84132; 84155; 84157; 84478; 84484; 85025; 85027; 85362; 85384; 85610; 85730; 86850; 86900; 86901; 86920; 87015; 87040; 87070; 87075; 87077; 87086; 87101; 87116; 87186; 87205; 87206; 87493; 88104; 89050; 93005; 93010; 93306; 94002; 94003; 94640; 94660; 94799; 95819; 96365; 99285; C1751; G8978-GP; G8979-GP; G8996-GN; G8997-GN; G8998-GN; J0171; J0330; J0692; J0743; J0834; J1100; J1165; J1200; J1450; J1580; J1642; J1650; J1815; J1940; J1956; J2060; J2250; J2270; J2310; J2370; J2543; J2704; J2920; J3010; J3370; J3475; J3480; J3490; J7030; J7050; J7060; J7512; J7620; P9016

== ENCOUNTER 2019-01-23 16:14 | Inpatient (IN) | payer MEDICARE, OTHER ==
[2019-01-23] MEDS ORDERED: OXYCODONE-ACETAMINOPHEN 5-325 MG TABLET PO ONE (16:41)
--- NOTE | 2019-01-23 16:55 | RADIOLOGY REPORT (SQ) ---
EXAM DESCRIPTION: WRIST LEFT 2 VIEWS COMPLETED DATE/TIME: 01/23/2019 4:45 pm REASON FOR STUDY: Fall; deformity present COMPARISON: None. NUMBER OF VIEWS: Two views. TECHNIQUE: AP and lateral radiographic images acquired of the left wrist. LIMITATIONS: None. FINDINGS: MINERALIZATION: Normal. BONES: Comminuted displaced transverse fractures of the distal radius and ulna. There is abnormal ap pearance of the scaphoid as well with lucency and irregular contour. SOFT TISSUES: No soft tissue swelling. No foreign body. OTHER: No other significant finding. IMPRESSION: COMMINUTED DISPLACED TRANSVERSE FRACTURES OF THE DISTAL RADIUS AND ULNA. ABNORMAL APPEA PATRICIA OF THE SCAPHOID ALSO CONCERNING FOR FRACTURE. TECHNICAL DOCUMENTATION: JOB ID: [id number] [employer]- All Rights Reserved Reading location - IP/workstation name: [email or web address]
--- NOTE | 2019-01-23 17:40 | ER Document Report ---
ED Hand/Wrist Injury - General Chief Complaint: Wrist Injury Stated Complaint: LEFT WRIST INJURY Time Seen by Provider: 01/23/19 17:11 Primary Care Provider: STELLA NESBITT MD [Primary Care Provider] - Follow up as needed Notes: 73-year-old intoxicated female patient fell. Outstretched arm. Deformity of her left wrist area. No LOC. No other pain. No bleeding. Has been drinking beer all day. On blood thinners TRAVEL OUTSIDE OF THE [place] IN LAST 30 DAYS: No - HPI Injury to: Hand, Palm, Wrist Onset: Just prior to arrival Where: Home Timing: Constant Quality of pain: Throbbing Severity: Moderate Pain Level: 3 Context: Fall - Related Data Allergies/Adverse Reactions: adhesive tape [Adhesive Tape] Allergy (Severe, Verified 05/25/18 10:16) peels skin off ceftriaxone sodium [From Rocephin] Allergy (Severe, Verified 05/25/18 10:16) redness/itch lorazepam [From Ativan] Adverse Reaction (Severe, Verified 05/26/18 13:33) Hallucinations Past Medical History - General Information source: Patient - Social History Smoking Status: Current Every Day Smoker Frequency of alcohol use: Heavy Drug Abuse: None Lives with: Spouse/Significant other Family History: Reviewed & Not Pertinent - Past Medical History Cardiac Medical History: Reports: Hx Atrial Fibrillation - chronic, Hx Co ngestive Heart Failure, Hx Hypertension Denies: Hx Coronary Artery Disease, Hx Heart Attack, Hx Hypercholesterolemia, Hx Peripheral Vascular Disease, Hx Pulmonary Embolism, Hx Heart Murmur Pulmonary Medical History: Reports: Hx Bronchitis, Hx COPD Denies: Hx Asthma, Hx Pneumonia, Hx Respiratory Failure, Hx Sleep Apnea, Hx Tuberculosis Neurological Medical History: Reports: Hx Seizures. Denies: Hx Cerebrovascular Accident Endocrine Medical History: Denies: Hx Graves' Disease, Hx Hyperthyroidism, Hx Hypothyroidism Renal/ Medical History: Denies: Hx End Stage Renal Disease, Hx Kidney Stones, Hx Peritoneal Dialysis Malignancy Medical History: Denies: Hx Lung Cancer GI Medical History: Reports: Hx Gastroesophageal Reflux Disease, Hx Hepatitis, Hx Ulcer. Denies: Hx Crohn's Disease, Hx Hiatal Hernia, Hx Irritable Bowel, Hx Liver Failure, Hx Pancreatitis Musculoskeletal Medical History: Reports Hx Arthritis, Denies Hx Fibromyalgia, Denies Hx Multiple Sclerosis, Denies Hx Muscular Dystrophy Psychiatric Medical History: Reports: Hx Anxiety, Hx Depression Denies: Hx Dementia, Hx Post Traumatic Stress Disorder, Hx Schizophrenia Comment Only: Hx Bipolar Disorder - anxiety Traumatic Medical History: Denies: Hx Fractures Infectious Medical History: Reports: Hx Hepatitis Past Surgical History: Reports: Hx Cholecystectomy. Denies: Hx Appendectomy, Hx Bowel Surgery, Hx Section, Hx Colostomy, Hx Coronary Artery Bypass Graft, Hx Gastric Bypass Surgery, Hx Herniorrhaphy, Hx Hysterectomy, Hx Mastectomy, Hx Open Heart Surgery, Hx Pacemaker, Hx Tonsillectomy, Hx Tubal Ligation - Immunizations Immunizations up to date: Yes Hx Diphtheria, Pertussis, Tetanus Vaccination: No Hx Pneumococcal Vaccination: 07/14/11 Review of Systems - Review of Systems Notes: Constitutional: denies: Chills, Diaphoresis, Fever, Malaise, Weakness EENT: denies: Eye discharge, Blurred vision, Tearing, Double vision, Nose congestion, Nose discharge, Throat swelling, Mouth pain Cardiovascular: denies: Palpitations, Heart racing, Orthopnea, Dyspnea, Chest pain Respiratory: denies: Cough, Hurts to breathe, Wheezing, Shortness of breath Gastrointestinal: denies: Abdominal pain, Diarrhea, Nausea, Vomiting, Black stools, bright red blood in stool Genitourinary: denies: Burning, Dysuria, Discharge, Frequency, Flank pain, Hematuria Musculoskeletal: Left wrist pain, deformity, pain in the hand. No lower extremity pain. Hematologic/Lymphatic: denies: Anemia, Easy bleeding, Easy bruising, Blood clots Neurological/Psychological: denies: Confusion, Dementia, Depression, Loss of consciousness Skin: No lesions, no masses, no skin breakdown, no abscesses Physical Exam - Vital signs Vitals: Pulse Resp BP Pulse Ox 94 18 115/58 L 98 01/23/19 16:28 01/23/19 16:28 01/23/19 16:28 01/23/19 16:28 Interpretation: Normal - General General appearance: Appears well, Alert - HEENT Head: Normocephalic, Atraumatic Eyes: Normal Pupils: PERRL - Respiratory Respiratory status: No respiratory distress Chest status: Nontender Breath sounds: Normal Chest palpation: Normal - Cardiovascular Rhythm: Regular Heart sounds: Normal auscultation Murmur: No - Abdominal Inspection: Normal Distension: No distension Bowel sounds: Normal Tenderness: Nontender Organomegaly: No organomegaly - Back Back: Normal, Nontender - Extremities General upper extremity: Other - The left upper extremity demonstrates a deformity at the distal radius and ulna. No opening in the skin. Sensation is intact. Pulses are intact of the radius and ulna on the affected left upper extremity. General lower extremity: Normal inspection, Nontender, Normal color, Normal ROM, Normal temperature, Normal weight bearing. No: Shayan's sign - Neurological Neuro grossly intact: Yes - Intoxicated Cognition: Normal Orientation: AAOx4 Christina Coma Scale Eye Opening: Spontaneous [place] Coma Scale Verbal: Oriented Christina Coma Scale Motor: Obeys Commands Christina Coma Scale Total: 15 Speech: Normal Motor strength normal: LUE, RUE, LLE, RLE Sensory: Normal - Psychological Associated symptoms: Normal affect, Normal mood - Skin Skin Temperature: Warm Skin Moisture: Dry Skin Color: Normal Course - Re-evaluation Re-evalutation: 01/23/19 19:44 Patient intoxicated with comminuted fractures of the distal radius and ulna and possible scaphoid fracture. Unable to do any reduction or at least feel comfortable doing a reduction with her intoxication as well as her profound hyponatremia at 125 and hypokalemia. I spoke with the patient's primary care provider, Dr. Nesbitt and he does agree to admit her at this time. I did also talk to the orthopedic surgeon, Dr. Holland who will be a consult and if needed. A sugar tong splint was placed with a large amount of padding. No complications. Good capillary refill afterwards and patient tolerated procedure well. 01/23/19 19:45 Laboratory 01/23/19 01/23/19 01/23/19 18:25 18:25 18:25 WBC 6.9 RBC 4.70 Hgb 14.6 Hct 41.4 MCV 88 MCH 31.0 MCHC 35.1 RDW 14.5 H Plt Count 225 Seg Neutrophils % 68.9 Lymphocytes % 24.0 Monocytes % 5.8 Eosinophils % 0.7 Basophils % 0.6 Absolute Neutrophils 4.8 Absolute Lymphocytes 1.7 Absolute Monocytes 0.4 Absolute Eosinophils 0.0 Absolute Basophils 0.0 PT 13.7 INR 1.00 APTT 30.5 Sodium 125.5 L Potassium 3.2 L Chloride 83 L Carbon Dioxide 28 Anion Gap 15 BUN 9 Creatinine 0.66 Est GFR ( Amer) > 60 Est GFR (Non-Af Amer) > 60 Glucose 110 Calcium 9.5 Total Bilirubin 0.5 Direct Bilirubin 0.3 Neonat Total Bilirubin Not Reportable Neonat Direct Bilirubin Not Reportable Neonat Indirect Bili Not Reportable AST 56 H ALT 18 Alkaline Phosphatase 143 H Total Protein 7.2 Albumin 4.3 Serum Alcohol 01/23/19 18:25 WBC RBC Hgb Hct MCV MCH MCHC RDW Plt Count Seg Neutrophils % Lymphocytes % Monocytes % Eosinophils % Basophils % Absolute Neutrophils Absolute Lymphocytes Absolute Monocytes Absolute Eosinophils Absolute Basophils PT INR APTT Sodium Potassium Chloride Carbon Dioxide Anion Gap BUN Creatinine Est GFR ( Amer) Est GFR (Non-Af Amer) Glucose Calcium Total Bilirubin Direct Bilirubin Neonat Total Bilirubin Neonat Direct Bilirubin Neonat Indirect Bili AST ALT Alkaline Phosphatase Total Protein Albumin Serum Alcohol 146 Wrist X-Ray 01/23/19 00:00 IMPRESSION: COMMINUTED DISPLACED TRANSVERSE FRACTURES OF THE DISTAL RADIUS AND ULNA. ABNORMAL APPEARANCE OF THE SCAPHOID ALSO CONCERNING FOR FRACTURE. Cervical Spine X-Ray 01/23/19 17:20 IMPRESSION: Anterolisthesis of C3 on C4. Soft tissue calcifications. Etiology uncertain. Is there a remote history of radiation? No acute finding. Head CT 01/23/19 17:23 IMPRESSION: No acute intracranial pathology. EVIDENCE OF ACUTE STROKE: NO. - Vital Signs Vital signs: Temp Pulse Resp BP Pulse Ox 94 19 120/68 91 L 01/23/19 16:28 01/23/19 17:02 01/23/19 17:02 01/23/19 17:02 - Laboratory Result Diagrams: 01/23/19 18:25 01/23/19 18:25 Laboratory results interpreted by me: 01/23/19 01/23/19 18:25 18:25 RDW 14.5 H Sodium 125.5 L Potassium 3.2 L Chloride 83 L AST 56 H Alkaline Phosphatase 143 H - EKG Interpretation by Wi EKG shows normal: Intervals, QRS Complexes, ST-T Waves Rhythm: Arrthymia, A.Fib Discharge - Discharge Clinical Impression: Hyponatremia, Hypokalemia Closed fracture distal radius and ulna Qualifiers: Encounter type: initial encounter Laterality: left Qualified Code(s): S52.502A - Unspecified fracture of the lower end of left radius, initial encounter for closed fracture; S52.602A - Unspecified fracture of lower end of left ulna, initial encounter for closed fracture Alcohol intoxication Qualifiers: Complication of substance-induced condition: uncomplicated Qualified Code(s): F10.920 - Alcohol use, unspecified with intoxication, uncomplicated Condition: Good Disposition: ADMITTED INPATIENT Admitting Provider: Janeth Unit Admitted: Telemetry Referrals: STELLA NESBITT MD [Primary Care Provider] - Follow up as needed
--- NOTE | 2019-01-23 18:10 | RADIOLOGY REPORT (SQ) ---
EXAM DESCRIPTION: CERV SP 3 VIEW OR LESS COMPLETED DATE/TIME: 01/23/2019 5:41 pm REASON FOR STUDY: fall, intoxicated COMPARISON: None. NUMBER OF VIEWS: Three views. TECHNIQUE: AP, lateral and odontoid radiographic images acquired of the cervical spine. LIMITATIONS: None. FINDINGS: MINERALIZATION: Normal. ALIGNMENT: Mild anterolisthesis of C3 on 4. VERTEBRAE: Vertebral bodies of normal height. DISCS: No significant disc space narrowing. No large osteophytes. HARDWARE: None in the spine. SOFT TISSUES: There is prevertebral soft tissue calcification. This is seen at the C3 and C4 level. OTHER: No other significant finding. IMPRESSION: Anterolisthesis of C3 on C4. Soft tissue calcifications. Etiology uncertain. Is there a remote history of radiation? No acute finding. TECHNICAL DOCUMENTATION: JOB ID: [id number] [employer] All Rights Reserved Reading location - IP/workstation name: [email or web address]
--- NOTE | 2019-01-23 18:20 | RADIOLOGY REPORT (SQ) ---
EXAM DESCRIPTION: CT HEAD WITHOUT COMPLETED DATE/TIME: 01/23/2019 6:06 pm REASON FOR STUDY: fall, intox on thinners COMPARISON: 07/03/2018 TECHNIQUE: Axial images acquired through the brain without intravenous contrast. Images reviewed wi th bone, brain and subdural windows. Additional sagittal and coronal reconstructions were generated. Images stored on PACS. All CT scanners at this facility use dose modulation, iterative reconstruction, and/or weight based d osing when appropriate to reduce radiation dose to as low as reasonably achievable (ALARA). [facility]: Dose Right [facility]: CareDose [facility]: Dose Right [facility]: Teradose 4D [facility]: [employer]CareKiosk RADIATION DOSE: CT Rad equipment meets quality standard of care and radiation dose reduction techniq ues were employed. CTDIvol: 53.2 mGy. DLP: 937 mGy-cm. mGy. LIMITATIONS: None. FINDINGS: VENTRICLES: Normal size and contour. CEREBRUM: No masses. No hemorrhage. No midline shift. No evidence for acute infarction. Normal gra y/white matter differentiation. No areas of low density in the white matter. CEREBELLUM: No masses. No hemorrhage. No alteration of density. No evidence for acute infarction. EXTRAAXIAL SPACES: No fluid collections. No masses. ORBITS AND GLOBE: No intra- or extraconal masses. Normal contour of globe without masses. CALVARIUM: No fracture. PARANASAL SINUSES: No fluid or mucosal thickening. SOFT TISSUES: No mass or hematoma. OTHER: No other significant finding. IMPRESSION: No acute intracranial pathology. EVIDENCE OF ACUTE STROKE: NO. COMMENT: Quality ID # [id number]: Final reports with documentation of one or more dose reduction techniques (e.g., Automated exposure control, adjustment of the mA and/or kV according to patient size, use of iterative reconstruction technique) TECHNICAL DOCUMENTATION: JOB ID: [id number] [employer]- All Rights Reserved Reading location - IP/workstation name: [email or web address]
[2019-01-23 18:34] LABS: ABSOLUTE LYMPHOCYTES (AUTO) 1.7 10^3/uL (0.5-4.7); ABSOLUTE MONOCYTES (AUTO) 0.4 10^3/uL (0.1-1.4); ABSOLUTE NEUT (AUTO) 4.8 10^3/uL (1.7-8.2); BASOPHILS % (AUTO) 0.6 % (0-2); EOSINOPHILS % (AUTO) 0.7 % (0-6); HEMATOCRIT 41.4 % (36.0-47.0); HEMOGLOBIN 14.6 g/dL (12.0-15.5); MEAN CORPUSCULAR HGB CONC 35.1 g/dL (32.0-36.0); MEAN CORPUSCULAR VOLUME 88 fl (80-97); MONOCYTES % (AUTO) 5.8 % (3-13); PLATELET COUNT 225 10^3/uL (150-450); RED CELL DISTRIBUTION WIDTH 14.5 % (11.5-14.0); SEGMENTED NEUTROPHILS % (AUTO) 68.9 % (42-78); TOTAL CELLS COUNTED % (AUTO) 100 %; WHITE BLOOD COUNT 6.9 10^3/uL (4.0-10.5)
[2019-01-23] MEDS ORDERED: NORMAL SALINE 500 ML IV ONE (18:37)
[2019-01-23 18:41] LABS: PROTHROMBIN TIME 13.7 SEC (11.4-15.4)
[2019-01-23 18:42] LABS: PARTIAL THROMBOPLASTIN TIME 30.5 SEC (23.5-35.8)
[2019-01-23 18:52] LABS: ALANINE AMINOTRANSFERASE 18 U/L (9-52); ALBUMIN 4.3 g/dL (3.5-5.0); ALKALINE PHOSPHATASE 143 U/L (38-126); ANION GAP 15 (5-19); ASPARTATE AMINO TRANSFERASE 56 U/L (14-36); BILIRUBIN,DIRECT 0.3 mg/dL (0.0-0.4); BILIRUBIN,TOTAL 0.5 mg/dL (0.2-1.3); BLOOD UREA NITROGEN 9 mg/dL (7-20); CALCIUM 9.5 mg/dL (8.4-10.2); CARBON DIOXIDE 28 mmol/L (22-30); CHLORIDE 83 mmol/L (98-107); GLUCOSE 110 mg/dL (75-110); POTASSIUM 3.2 mmol/L (3.6-5.0); SODIUM 125.5 mmol/L (137-145); TOTAL PROTEIN 7.2 g/dL (6.3-8.2)
--- NOTE | 2019-01-23 19:30 | EKG REPORT ---
SEVERITY:- ABNORMAL ECG - ATRIAL FIBRILLATION, V-RATE 68-102 : Confirmed by: Jacky Arguelles MD 23-Jan-2019 19:29:59
--- NOTE | 2019-01-23 20:29 | PDOC H&P ---
History of Present Illness Admission Date/PCP: 01/23/19 19:49 STELLA LACEYUNKSOTO Patient complains of: Left wrist injury History of Present Illness: SOHA DORSEY is a 73 year old female presented to the ED after a fall at home. She reported been stressed out at home due to her son and recent diagnosis of her with severe CAD. She admitted to alcohol ingestion at home and presented to the ED with smell of alcohol on her breathe. She reported falling on outstretched arm with subsequent development of pain and deformity in her left wrist region. She denied loss of consciousness, palpitation, or chest pain associated with her fall. Her initial evaluation in the ED was significant for left wrist comminuted fracture, alcohol intoxication, hyponatremia and hypokalemia. Her morbidities include chronic atrial fibrillation, diastolic congestive heart failure, hypertension, COPD, seizures, GERD, osteoarthritis, and mixed anxiety and depression. She was advised hospitalization for further evaluation and management with orthopedic consultation. Past Medical History Cardiac Medical History: Reports: Atrial Fibrillation - chronic, Congestive Heart Failure, Hypertension Denies: Coronary Artery Disease, Myocardial Infarction, Hyperlipidema, Peripheral Vascular Disease, Pulmonary Embolism, Heart Murmur Pulmonary Medical History: Reports: Bronchitis, Chronic Obstructive Pulmonary Disease (COPD) Denies: Asthma, Pneumonia, Respiratory Failure, Sleep Apnea, Tuberculosis Neurological Medical History: Reports: Seizures Endocrine Medical History: Denies: Hyperthyroidism, Hypothyroidism Renal/ Medical History: Denies: End Stage Renal Disease Malignancy Medical History: Denies: Lung Cancer GI Medical History: Reports: Gastroesophageal Reflux Disease, Hepatitis Denies: Crohn's Disease, Hiatal Hernia Musculoskeltal Medical History: Reports: Arthritis Denies: Fibromyalgia Psychiatric Medical History: Reports: Depression Denies: Dementia, Post Traumatic Stress Disorder Comment Only: Bipolar Disorder - anxiety Hematology: Denies: Anemia, Sickle Cell Disease Past Surgical History Past Surgical History: Reports: Cholecystectomy Denies: Amputation, Appendectomy, Section, Colostomy, Coronary Artery Bypass Graft, Gastric Bypass Surgery, Herniorrhaphy, Hysterectomy, Mastectomy, Pacemaker, Tonsillectomy, Tubal Ligation Social History Lives with: Spouse/Significant other Smoking Status: Current Every Day Smoker Frequency of Alcohol Use: Occasional Hx Recreational Drug Use: No Drugs: None Hx Prescription Drug Abuse: No Family History Family History: Reviewed & Not Pertinent Parental Family History Reviewed: Yes Children Family History Reviewed: Yes Sibling(s) Family History Reviewed.: Yes Medication/Allergy Allergies/Adverse Reactions: adhesive tape [Adhesive Tape] Allergy (Severe, Verified 05/25/18 10:16) peels skin off ceftriaxone sodium [From Rocephin] Allergy (Severe, Verified 05/25/18 10:16) redness/itch lorazepam [From Ativan] Adverse Reaction (Severe, Verified 05/26/18 13:33) Hallucinations Review of Systems Constitutional: ABSENT: chills, fever(s), headache(s), weight gain, weight loss Eyes: PRESENT: visual disturbances Ears: PRESENT: hearing changes Nose, Mouth, and Throat: ABSENT: as per HPI, headache(s), mouth pain, sore throat, vertigo, other Cardiovascular: PRESENT: dyspnea on exertion - related to her COPD. ABSENT: chest pain, edema, orthropnea, palpitations Respiratory: PRESENT: dyspnea - related to her COPD Gastrointestinal: ABSENT: abdominal pain, constipation, diarrhea, hematemesis, hematochezia, nausea, vomiting Genitourinary: ABSENT: dysuria, hematuria Musculoskeletal: PRESENT: deformity - left wrist with pain. ABSENT: joint swelling Integumentary: ABSENT: rash, wounds Neurological: ABSENT: abnormal gait, abnormal speech, confusion, dizziness, focal weakness, syncope Endocrine: ABSENT: cold intolerance, heat intolerance, polydipsia, polyuria Hematologic/Lymphatic: ABSENT: easy bleeding, easy bruising, lymphadenopathy Allergic/Immunologic: ABSENT: seasonal rhinorrhea Physical Exam Vital Signs: Temp Pulse Resp BP Pulse Ox 94 16 121/66 94 01/23/19 16:28 01/23/19 19:17 01/23/19 19:17 01/23/19 19:17 General appearance: PRESENT: mild distress - due to left wrist pain Head exam: PRESENT: atraumatic, normocephalic Eye exam: PRESENT: conjunctiva pink, EOMI, PERRLA. ABSENT: scleral icterus Ear exam: PRESENT: normal external ear exam Mouth exam: PRESENT: moist Respiratory exam: PRESENT: clear to auscultation cas, decreased breath sounds Cardiovascular exam: PRESENT: RRR. ABSENT: diastolic murmur, rubs, systolic murmur Vascular exam: PRESENT: normal capillary refill. ABSENT: pallor GI/Abdominal exam: PRESENT: normal bowel sounds, soft. ABSENT: distended, guarding, mass, organolmegaly, rebound, tenderness Rectal exam: PRESENT: deferred Extremities exam: ABSENT: pedal edema Musculoskeletal exam: PRESENT: deformity - left wrist joint Neurological exam: PRESENT: altered - due to [id number] intoxication, awake, oriented to person, oriented to place, oriented to time, oriented to situation, CN II-XII grossly intact, motor sensory deficit Psychiatric exam: PRESENT: agitated - due to her home stressful environment, appropriate affect, normal mood. ABSENT: homicidal ideation, suicidal ideation Skin exam: PRESENT: dry, warm Results Laboratory Results: 01/23/19 18:25 01/23/19 18:25 01/23/19 01/23/19 18:25 18:25 WBC 6.9 RBC 4.70 Hgb 14.6 Hct 41.4 MCV 88 MCH 31.0 MCHC 35.1 RDW 14.5 H Plt Count 225 Seg Neutrophils % 68.9 Lymphocytes % 24.0 Monocytes % 5.8 Eosinophils % 0.7 Basophils % 0.6 Absolute Neutrophils 4.8 Absolute Lymphocytes 1.7 Absolute Monocytes 0.4 Absolute Eosinophils 0.0 Absolute Basophils 0.0 Sodium 125.5 L Potassium 3.2 L Chloride 83 L Carbon Dioxide 28 Anion Gap 15 BUN 9 Creatinine 0.66 Est GFR ( Amer) > 60 Est GFR (Non-Af Amer) > 60 Glucose 110 Calcium 9.5 Total Bilirubin 0.5 AST 56 H ALT 18 Alkaline Phosphatase 143 H Total Protein 7.2 Albumin 4.3 Impressions: Wrist X-Ray 01/23/19 00:00 IMPRESSION: COMMINUTED DISPLACED TRANSVERSE FRACTURES OF THE DISTAL RADIUS AND ULNA. ABNORMAL APPEARANCE OF THE SCAPHOID ALSO CONCERNING FOR FRACTURE. Cervical Spine X-Ray 01/23/19 17:20 IMPRESSION: Anterolisthesis of C3 on C4. Soft tissue calcifications. Etiology uncertain. Is there a remote history of radiation? No acute finding. Head CT 01/23/19 17:23 IMPRESSION: No acute intracranial pathology. EVIDENCE OF ACUTE STROKE: NO. Assessment & Plan - Diagnosis (1) Alcohol intoxication Qualifiers: Complication of substance-induced condition: with unspecified complication Qualified Code(s): F10.929 - Alcohol use, unspecified with intoxication, unspecified Is this a current diagnosis for this admission?: Yes Plan: See admitting attending physician orders. (2) Fall at home Qualifiers: Encounter type: initial encounter Qualified Code(s): W19.XXXA - Unspecified fall, initial encounter; Y92.009 - Unspecified place in unspecified non- institutional (private) residence as the place of occurrence of the external cause Is this a current diagnosis for this admission?: Yes Plan: See admitting attending physician orders. (3) Closed fracture distal radius and ulna Qualifiers: Encounter type: initial encounter Laterality: left Qualified Code(s): S52.502A - Unspecified fracture of the lower end of left radius, initial encounter for closed fracture; S52.602A - Unspecified fracture of lower end of left ulna, initial encounter for closed fracture Is this a current diagnosis for this admission?: Yes Plan: See admitting attending physician orders. (4) Hypokalemia Is this a current diagnosis for this admission?: Yes Plan: See admitting attending physician orders. (5) Hyponatremia Is this a current diagnosis for this admission?: Yes Plan: See admitting attending physician orders. (6) COPD (chronic obstructive pulmonary disease) Qualifiers: COPD type: unspecified COPD Qualified Code(s): J44.9 - Chronic obstructive pulmonary disease, unspecified Is this a current diagnosis for this admission?: Yes Plan: See admitting attending physician orders. (7) Chronic atrial fibrillation Is this a current diagnosis for this admission?: Yes Plan: See admitting attending physician orders. (8) CHF (congestive heart failure) Qualifiers: Heart failure type: diastolic Heart failure chronicity: chronic Qualified Code(s): I50.32 - Chronic diastolic (congestive) heart failure Is this a current diagnosis for this admission?: Yes Plan: See admitting attending physician orders. (9) HTN (hypertension) Qualifiers: Hypertension type: essential hypertension Qualified Code(s): I10 - Essenti al (primary) hypertension Is this a current diagnosis for this admission?: Yes Plan: See admitting attending physician orders. (10) HLD (hyperlipidemia) Qualifiers: Hyperlipidemia type: pure hypercholesterolemia Qualified Code(s): E78.00 - Pure hypercholesterolemia, unspecified Is this a current diagnosis for this admission?: Yes Plan: See admitting attending physician orders. (11) GERD (gastroesophageal reflux disease) Qualifiers: Esophagitis presence: esophagitis presence not specified Qualified Code(s): K21.9 - Gastro-esophageal reflux disease without esophagitis Is this a current diagnosis for this admission?: Yes Plan: See admitting attending physician orders. - Time Time Spent: 50 to 70 Minutes Medications reviewed and adjusted accordingly: Yes Anticipated discharge: Home with Homehealth Within: Other - Inpatient Certification Based on my medical assessment, after consideration of the patient's comorbidities, presenting symptoms, or acuity I expect that the services needed warrant INPATIENT care.: Yes I certify that my determination is in accordance with my understanding of Medicare's requirements for reasonable and necessary INPATIENT services [42 CFR 412.3e].: Yes Medical Necessity: Significant Comorbidiites Make Outpatient Treatment Too Risky, Need Close Monitoring Due to Risk of Patient Decompensation, Need For IV Fluids, Need For Continuous Telemetry Monitoring, Need for Nebulizer Therapy and Monitoring of Response, Need for Pain Control, Need for Surgery, Risk of Complication if Not Cared For in Hospital, Risk of Diagnosis Which Will Require Inpatient Eval/Care/Monitoring Post Hospital Care: D/C Baton Teacher Documentation - Plan Summary Plan Summary: See admitting attending physician orders.
[2019-01-23] MEDS ORDERED: NORMAL SALINE 1000 ML 1,000 ML IV PRN (20:31)
[2019-01-23 21:05] LABS: APPEARANCE,URINE CLEAR; BILIRUBIN,URINE NEGATIVE (NEGATIVE); COLOR,URINE STRAW; GLUCOSE, URINE NEGATIVE (NEGATIVE); KETONES,URINE NEGATIVE (NEGATIVE); LEUKOCYTE ESTERASE,URINE NEGATIVE (NEGATIVE); NITRITE,URINE NEGATIVE (NEGATIVE); PROTEIN,URINE NEGATIVE (NEGATIVE); URINE SPECIFIC GRAVITY 1.004; UROBILINOGEN,URINE NEGATIVE mg/dL (<2.0)
[2019-01-23] MEDS: OXYCODONE-ACETAMINOPHEN 5-325 MG TABLET PO PRN (21:57)
[2019-01-24] MEDS: OXYCODONE-ACETAMINOPHEN 5-325 MG TABLET PO PRN ×4 (05:06→23:46)
[2019-01-24] MEDS: PANTOPRAZOLE SODIUM 40 MG TABLET.DR PO SCH (05:09)
[2019-01-24 05:40] LABS: ABSOLUTE LYMPHOCYTES (AUTO) 1.7 10^3/uL (0.5-4.7); ABSOLUTE NEUT (AUTO) 6.5 10^3/uL (1.7-8.2); BASOPHILS % (AUTO) 0.3 % (0-2); EOSINOPHILS % (AUTO) 0.5 % (0-6); HEMATOCRIT 38.1 % (36.0-47.0); HEMOGLOBIN 13.3 g/dL (12.0-15.5); INTERNATIONAL RATION (INR) 1.04; LYMPHOCYTES % (AUTO) 18.6 % (13-45); MEAN CORPUSCULAR HEMOGLOBIN 30.8 pg (27.0-33.4); MEAN CORPUSCULAR VOLUME 88 fl (80-97); MONOCYTES % (AUTO) 10.8 % (3-13); PLATELET COUNT 194 10^3/uL (150-450); PROTHROMBIN TIME 14.1 SEC (11.4-15.4); RED BLOOD COUNT 4.33 10^6/uL (3.72-5.28); RED CELL DISTRIBUTION WIDTH 14.1 % (11.5-14.0); SEGMENTED NEUTROPHILS % (AUTO) 69.8 % (42-78); TOTAL CELLS COUNTED % (AUTO) 100 %; WHITE BLOOD COUNT 9.3 10^3/uL (4.0-10.5)
[2019-01-24 05:58] LABS: ALANINE AMINOTRANSFERASE 18 U/L (9-52); ALBUMIN 3.8 g/dL (3.5-5.0); ALKALINE PHOSPHATASE 139 U/L (38-126); ANION GAP 13 (5-19); ASPARTATE AMINO TRANSFERASE 48 U/L (14-36); BILIRUBIN,DIRECT 0.4 mg/dL (0.0-0.4); BILIRUBIN,TOTAL 0.9 mg/dL (0.2-1.3); BLOOD UREA NITROGEN 9 mg/dL (7-20); CALCIUM 8.8 mg/dL (8.4-10.2); CARBON DIOXIDE 25 mmol/L (22-30); CHLORIDE 87 mmol/L (98-107); GLUCOSE 109 mg/dL (75-110); POTASSIUM 3.5 mmol/L (3.6-5.0); SODIUM 124.8 mmol/L (137-145); TOTAL PROTEIN 6.1 g/dL (6.3-8.2)
[2019-01-24] MEDS ORDERED: LANSOPRAZOLE 30 MG TAB.RAP.DR PO SCH (06:00)
--- NOTE | 2019-01-24 07:23 | PDOC CONSULTATION ---
Consultation Consult Date: 01/24/19 Consult reason:: 73-year-old white female status post a fall with a left wrist fracture History of Present Illness Admission Date/PCP: 01/23/19 19:49 STELLA OSUNKSOTO History of Present Illness: SOHA DORSEY is a 73 year old female Patient is a 73-year-old white female who presents intoxicated status post a fall with a left wrist deformity. Because of her intoxicated state and comorbi dities no attempt is made in the emergency room to reduce the fracture. It splinted. She is admitted to the hospitalist service and orthopedics is consulted for fracture management. Past Medical History Cardiac Medical History: Reports: Atrial Fibrillation - chronic, Congestive Heart Failure, Hypertension Denies: Coronary Artery Disease, Myocardial Infarction, Hyperlipidema, Peripheral Vascular Disease, Pulmonary Embolism, Heart Murmur Pulmonary Medical History: Reports: Bronchitis, Chronic Obstructive Pulmonary Disease (COPD) Denies: Asthma, Pneumonia, Respiratory Failure, Sleep Apnea, Tuberculosis Neurological Medical History: Reports: Seizures Endocrine Medical History: Denies: Hyperthyroidism, Hypothyroidism Renal/ Medical History: Denies: End Stage Renal Disease Malignancy Medical History: Denies: Lung Cancer GI Medical History: Reports: Gastroesophageal Reflux Disease, Hepatitis Denies: Crohn's Disease, Hiatal Hernia Musculoskeltal Medical History: Reports: Arthritis Denies: Fibromyalgia Psychiatric Medical History: Denies: Dementia, Depression, Post Traumatic Stress Disorder Comment Only: Bipolar Disorder - anxiety Hematology: Denies: Anemia, Sickle Cell Disease Past Surgical History Past Surgical History: Reports: Cholecystectomy Denies: Amputation, Appendectomy, Section, Colostomy, Coronary Artery Bypass Graft, Gastric Bypass Surgery, Herniorrhaphy, Hysterectomy, Mastectomy, Pacemaker, Tonsillectomy, Tubal Ligation Social History Information Source: Patient, FOR[facility], 1928–1983 Records Lives with: Spouse/Significant other Smoking Status: Current Every Day Smoker Cigarettes Packs Per Day: 1 Frequency of Alcohol Use: Heavy Hx Recreational Drug Use: No Drugs: None Hx Prescription Drug Abuse: No - Advance Directive Resuscitation Status: Full Code Family History Family History: Reviewed & Not Pertinent Parental Family History Reviewed: No Children Family History Reviewed: No Sibling(s) Family History Reviewed.: No Medication/Allergy Allergies/Adverse Reactions: adhesive tape [Adhesive Tape] Allergy (Severe, Verified 05/25/18 10:16) peels skin off ceftriaxone sodium [From Rocephin] Allergy (Severe, Verified 05/25/18 10:16) redness/itch lorazepam [From Ativan] Adverse Reaction (Severe, Verified 05/26/18 13:33) Hallucinations Review of Systems All systems: as per PMH Physical Exam Vital Signs: Temp Pulse Resp BP Pulse Ox 36.4 C 91 17 150/62 H 98 01/24/19 04:11 01/24/19 04:11 01/24/19 04:11 01/24/19 04:11 01/24/19 04:11 Intake & Output 01/23/19 01/24/19 01/25/19 06:59 06:59 06:59 Intake Total 820 Output Total 500 Balance 320 Physical Exam: Patient is a disheveled appearing middle-aged white female lying in a hospital bed. Left upper extremity splinted and elevated on a pillow. Patient is alert, oriented, and appropriate. General appearance: PRESENT: no acute distress, mild distress Head exam: PRESENT: normocephalic Respiratory exam: PRESENT: unlabored Cardiovascular exam: PRESENT: RRR Vascular exam: PRESENT: normal capillary refill GI/Abdominal exam: PRESENT: soft Rectal exam: PRESENT: deferred Extremities exam: PRESENT: other - Left upper extremity is immobilized in a splint. There is brisk cap refill to each of the digits. Sensory examination is intact to light touch. Motor function is difficult to assess because of p ain. Neurological exam: PRESENT: alert, awake, oriented to person, oriented to place, oriented to time, oriented to situation. ABSENT: motor sensory deficit Psychiatric exam: PRESENT: appropriate affect, normal mood. ABSENT: homicidal ideation, suicidal ideation Skin exam: PRESENT: dry, intact, warm. ABSENT: cyanosis, rash Results Laboratory Results: 01/24/19 04:38 01/24/19 04:38 01/23/19 01/23/19 01/23/19 18:25 18:25 20:45 WBC 6.9 RBC 4.70 Hgb 14.6 Hct 41.4 MCV 88 MCH 31.0 MCHC 35.1 RDW 14.5 H Plt Count 225 Seg Neutrophils % 68.9 Lymphocytes % 24.0 Monocytes % 5.8 Eosinophils % 0.7 Basophils % 0.6 Absolute Neutrophils 4.8 Absolute Lymphocytes 1.7 Absolute Monocytes 0.4 Absolute Eosinophils 0.0 Absolute Basophils 0.0 Sodium 125.5 L Potassium 3.2 L Chloride 83 L Carbon Dioxide 28 Anion Gap 15 BUN 9 Creatinine 0.66 Est GFR ( Amer) > 60 Est GFR (Non-Af Amer) > 60 Glucose 110 Calcium 9.5 Total Bilirubin 0.5 AST 56 H ALT 18 Alkaline Phosphatase 143 H Total Protein 7.2 Albumin 4.3 Urine Color STRAW Urine Appearance CLEAR Urine pH 6.0 Ur Specific [place] 1.004 Urine Protein NEGATIVE Urine Glucose (UA) NEGATIVE Urine Ketones NEGATIVE Urine Blood NEGATIVE Urine Nitrite NEGATIVE Ur Leukocyte Esterase NEGATIVE Urine WBC (Auto) 1 Urine RBC (Auto) 0 01/24/19 01/24/19 04:38 04:38 WBC 9.3 RBC 4.33 Hgb 13.3 Hct 38.1 MCV 88 MCH 30.8 MCHC 35.0 RDW 14.1 H Plt Count 194 Seg Neutrophils % 69.8 Lymphocytes % 18.6 Monocytes % 10.8 Eosinophils % 0.5 Basophils % 0.3 Absolute Neutrophils 6.5 Absolute Lymphocytes 1.7 Absolute Monocytes 1.0 Absolute Eosinophils 0.0 Absolute Basophils 0.0 Sodium 124.8 L Potassium 3.5 L Chloride 87 L Carbon Dioxide 25 Anion Gap 13 BUN 9 Creatinine 0.60 Est GFR ( Amer) > 60 Est GFR (Non-Af Amer) > 60 Glucose 109 Calcium 8.8 Total Bilirubin 0.9 AST 48 H ALT 18 Alkaline Phosphatase 139 H Total Protein 6.1 L Albumin 3.8 Urine Color Urine Appearance Urine pH Ur Specific [place] Urine Protein Urine Glucose (UA) Urine Ketones Urine Blood Urine Nitrite Ur Leukocyte Esterase Urine WBC (Auto) Urine RBC (Auto) Impressions: Wrist X-Ray 01/23/19 00:00 IMPRESSION: COMMINUTED DISPLACED TRANSVERSE FRACTURES OF THE DISTAL RADIUS AND ULNA. ABNORMAL APPEARANCE OF THE SCAPHOID ALSO CONCERNING FOR FRACTURE. Cervical Spine X-Ray 01/23/19 17:20 IMPRESSION: Anterolisthesis of C3 on C4. Soft tissue calcifications. Etiology uncertain. Is there a remote history of radiation? No acute finding. Head CT 01/23/19 17:23 IMPRESSION: No acute intracranial pathology. EVIDENCE OF ACUTE STROKE: NO. Status: Imported from PACS Assessment & Plan - Diagnosis (1) Closed fracture distal radius and ulna Qualifiers: Encounter type: initial encounter Laterality: left Qualified Code(s): S52.502A - Unspecified fracture of the lower end of left radius, initial encounter for closed fracture; S52.602A - Unspecified fracture of lower end of left ulna, initial encounter for closed fracture Is this a current diagnosis for this admission?: Yes Plan: 73-year-old female with a left distal radius fracture that either should undergo attempted closed reduction splinting or alternatively an open reduction internal fixation. Tentative plan for taking the patient to the operating room on Monday morning pending medical clearance. - Time Time Spent: 50 to 70 Minutes Anticipated discharge: Other Within: Other
[2019-01-24] MEDS: THIAMINE HCL 100 MG TABLET PO SCH (10:19)
[2019-01-24] MEDS: MULTIVIT-STRESS FORMULA/ZINC TABLET PO SCH (10:19)
[2019-01-24] MEDS: IPRATROPIUM/ALBUTEROL 0.5-2.5 MG/3 ML AMPUL NEB PRN (13:02)
[2019-01-24] MEDS ORDERED: ALBUTEROL SULFATE HFA (90 MCG/PUFF) 200 PUFF/8.5 GM MDI IH PRN (17:55)
--- NOTE | 2019-01-24 18:08 | PDOC PROGRESS REPORT ---
Subjective Progress Note for:: 01/24/19 Subjective:: No chest pain. She remain on supplemental oxygen via nasal cannula. Expressed pain in left upper extremity with external immobilizer in use. Orthopedic consult input appreciated. Reason For Visit: ALCOHOL INTOXICATION, FALL AT HOME, LEFT WRIST Physical Exam Vital Signs: Temp Pulse Resp BP Pulse Ox 97.9 F 113 H 18 131/92 H 100 01/24/19 15:57 01/24/19 15:57 01/24/19 15:57 01/24/19 15:57 01/24/19 15:57 Intake & Output 01/23/19 01/24/19 01/25/19 06:59 06:59 06:59 Intake Total 820 Output Total 500 Balance 320 General appearance: PRESENT: mild distress - due to pain Head exam: PRESENT: atraumatic, normocephalic Eye exam: PRESENT: conjunctiva pink, EOMI, PERRLA. ABSENT: scleral icterus Ear exam: PRESENT: normal external ear exam Mouth exam: PRESENT: moist Respiratory exam: PRESENT: clear to auscultation cas, decreased breath sounds Cardiovascular exam: PRESENT: RRR. ABSENT: diastolic murmur, rubs, systolic murmur Vascular exam: PRESENT: normal capillary refill, pallor GI/Abdominal exam: PRESENT: normal bowel sounds, soft. ABSENT: distended, guarding, mass, organolmegaly, rebound, tenderness Extremities exam: PRESENT: tenderness - left wrist joint region. ABSENT: pedal edema Musculoskeletal exam: PRESENT: deformity - left wrist joint, tenderness - left wrist joint. ABSENT: full ROM - left wrist joint Neurological exam: PRESENT: alert, awake, oriented to person, oriented to place, oriented to time, oriented to situation, CN II-XII grossly intact. ABSENT: motor sensory deficit Psychiatric exam: PRESENT: appropriate affect, normal mood. ABSENT: homicidal ideation, suicidal ideation Skin exam: PRESENT: dry, warm Results Laboratory Results: 01/24/19 04:38 01/24/19 04:38 01/23/19 01/23/19 01/23/19 18:25 18:25 20:45 WBC 6.9 RBC 4.70 Hgb 14.6 Hct 41.4 MCV 88 MCH 31.0 MCHC 35.1 RDW 14.5 H Plt Count 225 Seg Neutrophils % 68.9 Lymphocytes % 24.0 Monocytes % 5.8 Eosinophils % 0.7 Basophils % 0.6 Absolute Neutrophils 4.8 Absolute Lymphocytes 1.7 Absolute Monocytes 0.4 Absolute Eosinophils 0.0 Absolute Basophils 0.0 Sodium 125.5 L Potassium 3.2 L Chloride 83 L Carbon Dioxide 28 Anion Gap 15 BUN 9 Creatinine 0.66 Est GFR ( Amer) > 60 Est GFR (Non-Af Amer) > 60 Glucose 110 Calcium 9.5 Total Bilirubin 0.5 AST 56 H ALT 18 Alkaline Phosphatase 143 H Total Protein 7.2 Albumin 4.3 Urine Color STRAW Urine Appearance CLEAR Urine pH 6.0 Ur Specific [place] 1.004 Urine Protein NEGATIVE Urine Glucose (UA) NEGATIVE Urine Ketones NEGATIVE Urine Blood NEGATIVE Urine Nitrite NEGATIVE Ur Leukocyte Esterase NEGATIVE Urine WBC (Auto) 1 Urine RBC (Auto) 0 01/24/19 01/24/19 04:38 04:38 WBC 9.3 RBC 4.33 Hgb 13.3 Hct 38.1 MCV 88 MCH 30.8 MCHC 35.0 RDW 14.1 H Plt Count 194 Seg Neutrophils % 69.8 Lymphocytes % 18.6 Monocytes % 10.8 Eosinophils % 0.5 Basophils % 0.3 Absolute Neutrophils 6.5 Absolute Lymphocytes 1.7 Absolute Monocytes 1.0 Absolute Eosinophils 0.0 Absolute Basophils 0.0 Sodium 124.8 L Potassium 3.5 L Chloride 87 L Carbon Dioxide 25 Anion Gap 13 BUN 9 Creatinine 0.60 Est GFR ( Amer) > 60 Est GFR (Non-Af Amer) > 60 Glucose 109 Calcium 8.8 Total Bilirubin 0.9 AST 48 H ALT 18 Alkaline Phosphatase 139 H Total Protein 6.1 L Albumin 3.8 Urine Color Urine Appearance Urine pH Ur Specific [place] Urine Protein Urine Glucose (UA) Urine Ketones Urine Blood Urine Nitrite Ur Leukocyte Esterase Urine WBC (Auto) Urine RBC (Auto) Impressions: Wrist X-Ray 01/23/19 00:00 IMPRESSION: COMMINUTED DISPLACED TRANSVERSE FRACTURES OF THE DISTAL RADIUS AND ULNA. ABNORMAL APPEARANCE OF THE SCAPHOID ALSO CONCERNING FOR FRACTURE. Cervical Spine X-Ray 01/23/19 17:20 IMPRESSION: Anterolisthesis of C3 on C4. Soft tissue calcifications. Etiology uncertain. Is there a remote history of radiation? No acute finding. Head CT 01/23/19 17:23 IMPRESSION: No acute intracranial pathology. EVIDENCE OF ACUTE STROKE: NO. Assessment & Plan - Diagnosis (1) Alcohol intoxication Qualifiers: Complication of substance-induced condition: with unspecified complication Qualified Code(s): F10.929 - Alcohol use, unspecified with intoxication, unspec ified Is this a current diagnosis for this admission?: Yes (2) Fall at home Qualifiers: Encounter type: initial encounter Qualified Code(s): W19.XXXA - Unspecified fall, initial encounter; Y92.009 - Unspecified place in unspecified non- institutional (private) residence as the place of occurrence of the external cause Is this a current diagnosis for this admission?: Yes (3) Closed fracture distal radius and ulna Qualifiers: Encounter type: initial encounter Laterality: left Qualified Code(s): S52.502A - Unspecified fracture of the lower end of left radius, initial e ncounter for closed fracture; S52.602A - Unspecified fracture of lower end of left ulna, initial encounter for closed fracture Is this a current diagnosis for this admission?: Yes (4) Hypokalemia Is this a current diagnosis for this admission?: Yes (5) Hyponatremia Is this a current diagnosis for this admission?: Yes (6) COPD (chronic obstructive pulmonary disease) Qualifiers: COPD type: unspecified COPD Qualified Code(s): J44.9 - Chronic obstructive pulmonary disease, unspecified Is this a current diagnosis for this admission?: Yes (7) Chronic atrial fibrillation Is this a current diagnosis for this admission?: Yes (8) CHF (congestive heart failure) Qualifiers: Heart failure type: diastolic Heart failure chronicity: chronic Qualified Code(s): I50.32 - Chronic diastolic (congestive) heart failure Is this a current diagnosis for this admission?: Yes (9) HTN (hypertension) Qualifiers: Hypertension type: essential hypertension Qualified Code(s): I10 - Essential (primary) hypertension Is this a current diagnosis for this admission?: Yes (10) HLD (hyperlipidemia) Qualifiers: Hyperlipidemia type: pure hypercholesterolemia Qualified Code(s): E78.00 - Pure hypercholesterolemia, unspecified Is this a current diagnosis for this admission?: Yes (11) GERD (gastroesophageal reflux disease) Qualifiers: Esophagitis presence: esophagitis presence not specified Qualified Code(s): K21.9 - Gastro-esophageal reflux disease without esophagitis Is this a current diagnosis for this admission?: Yes - Time Time Spent with patient: 25-34 minutes Medications reviewed and adjusted accordingly: Yes Anticipated discharge: Home with Homehealth Within: Other - Inpatient Certification Based on my medical assessment, after consideration of the patient's comorbidities, presenting symptoms, or acuity I expect that the services needed warrant INPATIENT care.: Yes I certify that my determination is in accordance with my understanding of Medicare's requirements for reasonable and necessary INPATIENT services [42 CFR 412.3e].: Yes Medical Necessity: Significant Comorbidiites Make Outpatient Treatment Too Risky, Need Close Monitoring Due to Risk of Patient Decompensation, Need For IV Fluids, Need For Continuous Telemetry Monitoring, Need for Nebulizer Therapy and Monitoring of Response, Need for Pain Control, Risk of Complication if Not Cared For in Hospital, Risk of Diagnosis Which Will Require Inpatient Eval/Care/Monitoring 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 Repeat IV Potassium rider 60 mEq total dose. Maintain on IV fluid support. Continue all other current medication management. Obtain BMP and CBC with Diff in AM.
[2019-01-24] MEDS: POTASSI CL 20 MEQ/50 ML RIDER 20 MEQ/50 ML RTUPB IV SCH ×2 (21:33→21:41)
[2019-01-25] MEDS: POTASSI CL 20 MEQ/50 ML RIDER 20 MEQ/50 ML RTUPB IV SCH (03:56)
[2019-01-25 06:11] LABS: ABSOLUTE LYMPHOCYTES (AUTO) 1.3 10^3/uL (0.5-4.7); ABSOLUTE NEUT (AUTO) 5.7 10^3/uL (1.7-8.2); BASOPHILS % (AUTO) 0.2 % (0-2); EOSINOPHILS % (AUTO) 0.3 % (0-6); HEMOGLOBIN 12.9 g/dL (12.0-15.5); LYMPHOCYTES % (AUTO) 16.4 % (13-45); MEAN CORPUSCULAR HEMOGLOBIN 30.7 pg (27.0-33.4); MEAN CORPUSCULAR HGB CONC 34.8 g/dL (32.0-36.0); MEAN CORPUSCULAR VOLUME 88 fl (80-97); MONOCYTES % (AUTO) 12.1 % (3-13); PLATELET COUNT 187 10^3/uL (150-450); RED BLOOD COUNT 4.19 10^6/uL (3.72-5.28); RED CELL DISTRIBUTION WIDTH 14.2 % (11.5-14.0); TOTAL CELLS COUNTED % (AUTO) 100 %
[2019-01-25 06:34] LABS: ANION GAP 10 (5-19); BLOOD UREA NITROGEN 6 mg/dL (7-20); CARBON DIOXIDE 27 mmol/L (22-30); CHLORIDE 92 mmol/L (98-107); GLUCOSE 122 mg/dL (75-110); POTASSIUM 3.5 mmol/L (3.6-5.0); SODIUM 128.7 mmol/L (137-145)
[2019-01-25] MEDS: OXYCODONE-ACETAMINOPHEN 5-325 MG TABLET PO PRN (06:46)
[2019-01-25] MEDS: PANTOPRAZOLE SODIUM 40 MG TABLET.DR PO SCH (06:46)
[2019-01-25] MEDS ORDERED: (PENDING PHARMACY ID) (Tiotropium Bromide [Spiriva Respimat] 2 PUFF) IH SCH (10:00)
[2019-01-25] MEDS ORDERED: CEFAZOLIN 2 GM/D5W RTU 2 GM/50 ML RTUPB IV PRN (10:23)
[2019-01-25] MEDS: ENOXAPARIN SODIUM INJ 40 MG/0.4 ML DISP.SYRIN SUBCUT SCH (11:21)
[2019-01-25] MEDS ORDERED: ONDANSETRON HCL INJ/PF 4 MG/2 ML SDV ONE (12:24)
[2019-01-25] MEDS ORDERED: MIDAZOLAM 2 MG/2 ML INJ ONE (12:24)
[2019-01-25] MEDS ORDERED: FENTANYL CITRATE INJ/PF 100 MCG/2 ML AMPUL ONE (12:24)
[2019-01-25] MEDS ORDERED: DEXAMETHASONE SOD PHOSPHATE INJ 4 MG/1 ML VIAL ONE (12:24)
[2019-01-25] MEDS ORDERED: PROPOFOL INJ 200 MG/20 ML VIAL IV ONE (12:25)
[2019-01-25] MEDS: VALSARTAN 40 MG TABLET PO SCH (12:38)
[2019-01-25] MEDS: THIAMINE HCL 100 MG TABLET PO SCH (12:39)
[2019-01-25] MEDS: MULTIVIT-STRESS FORMULA/ZINC TABLET PO SCH (12:39)
[2019-01-25] MEDS ORDERED: BUPIVACAINE HCL 0.5 % INJ/PF 30 ML SDV ONE (13:01)
[2019-01-25] MEDS ORDERED: ROPIVACAINE HCL 0.5% INJ/PF (5 MG/1 ML) 30 ML SDV ONE (14:26)
[2019-01-25] MEDS ORDERED: LIDOCAINE 2% INJ (20 MG/ML) 20 ML MDV ONE (14:26)
[2019-01-25] MEDS ORDERED: LIDOCAINE 2%/EPINEPHRINE INJ 20 ML VIAL ONE (14:26)
[2019-01-25] MEDS ORDERED: CLINDAMYCIN 600 MG/D5W RTU 600 MG/50 ML RTUPB IV ONE (15:06)
[2019-01-25] MEDS ORDERED: MORPHINE SULFATE 10 MG/ML INJ IV PRN (15:46)
[2019-01-25] MEDS ORDERED: PROMETHAZINE HCL INJ 25 MG/1 ML VIAL IV PRN ×2 (15:46)
[2019-01-25] MEDS ORDERED: MEPERIDINE HCL/PF INJ 25 MG/1 ML DISP.SYRIN IV PRN (15:46)
[2019-01-25] MEDS ORDERED: FENTANYL CITRATE INJ/PF 100 MCG/2 ML AMPUL IV PRN ×3 (15:46)
[2019-01-25] MEDS ORDERED: ONDANSETRON HCL INJ/PF 4 MG/2 ML SDV IV PRN (15:46)
[2019-01-25] MEDS ORDERED: DIPHENHYDRAMINE HCL 50 MG/ML VIAL IV PRN (15:46)
[2019-01-25] MEDS ORDERED: ESMOLOL HCL INJ/PF 100 MG/10 ML SDV IV ONE (16:12)
[2019-01-25] MEDS ORDERED: METOPROLOL TARTRATE PF/INJ 5 MG/5 ML SDV IV ONE (16:12)
--- NOTE | 2019-01-25 17:55 | Operative Report ---
Operative Report PREOPERATIVE DIAGNOSIS: Left distal radius fracture. Left distal ulna fracture POSTOPERATIVE DIAGNOSIS: Same OPERATION: ORIF less than 2 part intra-articular left distal radius fracture, ORIF left distal ulnar shaft fracture SURGEON: BRAD RODRIGUEZ ANESTHESIA: GA COMPLICATIONS: None ESTIMATED BLOOD LOSS: Minimal PROCEDURE: Indication for above procedure: 73-year-old female who sustained a fall onto her left upper extremity on 01/24/19. Patient was seen at the emergency room where x-rays confirmed distal radius and ulna fracture. Due to patient's alcohol intoxication she was admitted to the hospitalist service. Preoperatively patient was discussed risks and benefits of operative versus nonoperative intervention after discussing these options decision was made to proceed with operative intervention. Procedure In Detail: Patient was seen and evaluated in the preoperative holding area. The RIGHT upper extremity was initialized and marked. Patient received 2g of Ancef IV for bacterial prophylaxis. Patient was taken back to the operative room where transferred to the operative table and placed under general anesthesia. Once they were adequately anesthetized and a nonsterile tourniquet was placed on his upper extremity. A surgical team debriefing was performed ensuring all instrumentation was available, the surgical procedure was discussed with possible concerns reviewed. The upper extremity was prepped with chlorhexidine and alcohol and draped in a sterile fashion. A timeout was done identifying correct patient, procedure and extremity everyone in attendance agree with this and verbalized no concerns.The extremity was exsanguinated the tourniquet was inflated to 250 mmHg. A longitudinal skin incision was made via a volar approach of Ady along the FCR tendon sheath. The FCR tendon sheath was opened and the FCR retracted ulnarly, the palmar cutaneous branch of the median nerve was identified and protected throughout the entirety of the case. The radial artery was identified and retracted radially. Blunt dissection was performed to the FPL which was carefully sweeped ulnarly. This brought me to the pronator quadratus which was elevated off of the distal radius via sharp dissection with a 15 blade to allow later repair. There was evidence of significant comminution at the fracture site. A small intra-articular split just adjacent to the radial styloid was identified. A Petros elevator was utilized to reduce the fracture and restore height and inclination. K wire was placed on oscillate maintaining reduction. A standard 3-hole Acumed distal radius plate was then secured with K wires. C- arm fluoroscopy was obtained demonstrating cheondoism of alignment and appropriate plate placement. Once this was confirmed bicortical screw fixation was obtained through the dynamic hole. Fixation was then obtained distally while placing a reduction tenaculum to firmly bring the plate down to the volar cortex. Through the drill guide the near cortex was drilled to but not through the far cortex and appropriate size locking screws were placed. Under live fluoroscopy to radial styloid screws and additional lunate facet screw was placed. Fixation was then completed along the shaft with an additional bicortical screw and locking screw at the most distal shaft hole. There is 100% displacement of the ulnar shaft fracture and thus decision was made to proceed with fixation. Longitudinal skin incision was made over the fifth dorsal compartment fifth dorsal compartment was released and EDM re tracted. A T-shaped capsulotomy was then made dissecting from proximal to distal to open up the distal ulna. The TFCC was elevated superiorly to expose the ulnar fovea. Once exposed the fracture was reduced under direct visualization and a K wire for the ExsoMed intramedullary nail was placed. Using the measuring guide a 65 mm screw was determined. The 4.5 mm x 65 mm screw was then placed intramedullary obtaining fixation proximally and distally. To provide further fixation and additional transarticular K wire across the DRUJ was placed with the arm in neutral position. Wound was copiously irrigated with normal saline. The capsule of the distal ulna was closed with interrupted 0 Vicryl suture and EDM was left transposed. Skin incision was closed with interrupted 4-0 nylon. The volar wound was copiously irrigated with normal saline. There was no evidence of DRUJ instability on examination, Negative Hyde's test, No crepitus with range of motion at the radiocarpal joint or DRUJ. The pronator quadratus was closed with interrupted 4-0 Monocryl suture. Subcutaneous tissues were closed with interrupted 4-0 Monocryl suture. Skin as closed w/ interrupted 4-0 nylon suture the tourniquet was then deflated. Was dressed with sterile 4 x 4's and patient was placed in a well-padded sugar tong splint. Sponge counts, instrument counts and needle counts were correct. There was no intraoperative complications patient tolerated procedure well stable to PACU. Postoperative plan: Patient will be transition to a long short arm cast at follow-up. Will obtain radiographs at followup of the wrist.
--- NOTE | 2019-01-25 20:16 | PDOC PROGRESS REPORT ---
Subjective Progress Note for:: 01/25/19 Subjective:: Patient is s/p ORIF left distal radius and distal ulnar shaft fractures surgery. She denied any chest pain. Remain on supplemental oxygen via nasal cannula. No reported fever or chills. Nursing staff reported episodes of confusion and reported itching all night last night and patient is beginning to demonstrate same tonight. Reason For Visit: ALCOHOL INTOXICATION, FALL AT HOME, LEFT WRIST Physical Exam Vital Signs: Temp Pulse Resp BP Pulse Ox 98.5 F 106 H 22 H 147/74 H 95 01/25/19 18:44 01/25/19 18:44 01/25/19 18:44 01/25/19 18:44 01/25/19 18:44 Intake & Output 01/24/19 01/25/19 01/26/19 06:59 06:59 06:59 Intake Total 820 1020 700 Output Total 500 600 30 Balance 320 420 670 Weight 78.1 kg Physical Exam: General appearance: PRESENT: mild distress - due to pain Head exam: PRESENT: atraumatic, normocephalic Eye exam: PRESENT: conjunctiva pink, EOMI, PERRLA. ABSENT: pallor, scleral icterus Ear exam: PRESENT: normal external ear exam Mouth exam: PRESENT: moist Respiratory exam: PRESENT: clear to auscultation cas, decreased breath sounds Cardiovascular exam: PRESENT: RRR. ABSENT: diastolic murmur, rubs, systolic murmur GI/Abdominal exam: PRESENT: normal bowel sounds, soft. ABSENT: distended, guarding, mass, organomegaly, rebound, tenderness Extremities exam: PRESENT: tenderness - left wrist joint region. ABSENT: pedal edema Musculoskeletal exam: PRESENT: left wrist joint surgical site dressing with external immobilizer in use. ABSENT: full ROM - left wrist joint Neurological exam: PRESENT: alert with some degree of confusion in her responses, awake CN II-XII grossly intact. ABSENT: motor sensory deficit Psychiatric exam: PRESENT: appropriate affect, normal mood. ABSENT: homicidal ideation, suicidal ideation Skin exam: PRESENT: dry, warm Results Laboratory Results: 01/25/19 05:20 01/25/19 05:20 01/24/19 01/25/19 01/25/19 04:38 05:20 05:20 WBC 8.0 RBC 4.19 Hgb 12.9 Hct 37.0 MCV 88 MCH 30.7 MCHC 34.8 RDW 14.2 H Plt Count 187 Seg Neutrophils % 71.0 Lymphocytes % 16.4 Monocytes % 12.1 Eosinophils % 0.3 Basophils % 0.2 Absolute Neutrophils 5.7 Absolute Lymphocytes 1.3 Absolute Monocytes 1.0 Absolute Eosinophils 0.0 Absolute Basophils 0.0 Sodium 128.7 L Potassium 3.5 L Chloride 92 L Carbon Dioxide 27 Anion Gap 10 BUN 6 L Creatinine 0.53 Est GFR ( Amer) > 60 Est GFR (Non-Af Amer) > 60 Glucose 122 H Calcium 9.0 Magnesium 1.6 Impressions: Cervical Spine X-Ray 01/23/19 17:20 IMPRESSION: Anterolisthesis of C3 on C4. Soft tissue calcifications. Etiology uncertain. Is there a remote history of radiation? No acute finding. Head CT 01/23/19 17:23 IMPRESSION: No acute intracranial pathology. EVIDENCE OF ACUTE STROKE: NO. Assessment & Plan - Diagnosis (1) Alcohol intoxication Qualifiers: Complication of substance-induced condition: with unspecified complication Qualified Code(s): F10.929 - Alcohol use, unspecified with intoxication, unspecified Is this a current diagnosis for this admission?: Yes (2) Fall at home Qualifiers: Encounter type: initial encounter Qualified Code(s): W19.XXXA - Unspecified fall, initial encounter; Y92.009 - Unspecified place in unspecified non- institutional (private) residence as the place of occurrence of the external cause Is this a current diagnosis for this admission?: Yes (3) Closed fracture distal radius and ulna Qualifiers: Encounter type: initial encounter Laterality: left Qualified Code(s): S52.502A - Unspecified fracture of the lower end of left radius, initial encounter for closed fracture; S52.602A - Unspecified fracture of lower end of left ulna, initial encounter for closed fracture Is this a current diagnosis for this admission?: Yes (4) Hypokalemia Is this a current diagnosis for this admission?: Yes (5) Hyponatremia Is this a current diagnosis for this admission?: Yes (6) COPD (chronic obstructive pulmonary disease) Qualifiers: COPD type: unspecified COPD Qualified Code(s): J44.9 - Chronic obstructive pulmonary disease, unspecified Is this a current diagnosis for this admission?: Yes (7) Chronic atrial fibrillation Is this a current diagnosis for this admission?: Yes (8) CHF (congestive heart failure) Qualifiers: Heart failure type: diastolic Heart failure chronicity: chronic Qualified Code(s): I50.32 - Chronic diastolic (congestive) heart failure Is this a current diagnosis for this admission?: Yes (9) HTN (hypertension) Qualifiers: Hypertension type: essential hypertension Qualified Code(s): I10 - E ssential (primary) hypertension Is this a current diagnosis for this admission?: Yes (10) HLD (hyperlipidemia) Qualifiers: Hyperlipidemia type: pure hypercholesterolemia Qualified Code(s): E78.00 - Pure hypercholesterolemia, unspecified Is this a current diagnosis for this admission?: Yes (11) GERD (gastroesophageal reflux disease) Qualifiers: Esophagitis presence: esophagitis presence not specified Qualified Code(s): K21.9 - Gastro-esophageal reflux disease without esophagitis Is this a current diagnosis for this admission?: Yes - Time Time Spent with patient: 25-34 minutes Medications reviewed and adjusted accordingly: Yes Anticipated discharge: Home with Homehealth Within: Other - Inpatient Certification Based on my medical assessment, after consideration of the patient's comorbidities, presenting symptoms, or acuity I expect that the services needed warrant INPATIENT care.: Yes I certify that my determination is in accordance with my understanding of Medicare's requirements for reasonable and necessary INPATIENT services [42 CFR 412.3e].: Yes Medical Necessity: Significant Comorbidiites Make Outpatient Treatment Too Risky, Need Close Monitoring Due to Risk of Patient Decompensation, Need For IV Fluids, Need For Continuous Telemetry Monitoring, Need for Nebulizer Therapy and Monitoring of Response, Need for Pain Control, Need for Surgery, Risk of Complication if Not Cared For in Hospital, Risk of Diagnosis Which Will Require Inpatient Eval/Care/Monitoring Post 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 Start on haloperidol 0.5 mg po bid. Patient will receive potassium and magnesium replacement therapy. Repeat labs in am.
[2019-01-25] MEDS ORDERED: MAGNESIUM SULFATE/D5W 1 GM/100 ML RTUPB IV ONE (21:00)
[2019-01-25] MEDS ORDERED: HALOPERIDOL 0.5 MG TABLET PO SCH (22:00)
[2019-01-25] MEDS ORDERED: HALOPERIDOL 5 MG TABLET ONE (22:26)
[2019-01-25] MEDS: POTASSIUM CHLORIDE 10 MEQ CAPSULE.ER PO SCH (22:39)
[2019-01-25] MEDS ORDERED: HALOPERIDOL 1 MG TABLET PO ONE (22:45)
--- NOTE | 2019-01-26 00:48 | RADIOLOGY REPORT (SQ) ---
EXAM DESCRIPTION: XR WRIST 3 OR MORE VIEWS COMPLETED DATE/TME: 01/25/2019 00:00 CLINICAL HISTORY: 73 years, Female, ORIF LT WRIST COMPARISON: None. NUMBER OF VIEWS: TECHNIQUE: LIMITATIONS: None. FINDINGS: Fluoroscopic guidance was utilized for open reduction and internal fixation of distal radial and ulnar fractures. images were obtained, showing the placement of metallic fixation devices in the distal radius and ulna. 1 minute and 9 seconds of fluoroscopy time were utilized. The total radiation dose was 2.068 mGy. IMPRESSION: Fluoroscopic guidance was utilized for open reduction and internal fixation of distal radial and ulnar fractures. copyright 2010 [employer]- All Rights Reserved
[2019-01-26] MEDS ORDERED: POTASSIUM CHLORIDE 10 MEQ CAPSULE.ER PO ONE (01:06)
[2019-01-26] MEDS: POTASSIUM CHLORIDE 10 MEQ CAPSULE.ER PO SCH (01:12)
[2019-01-26 05:42] LABS: ABSOLUTE NEUT (AUTO) 5.9 10^3/uL (1.7-8.2); BASOPHILS % (AUTO) 0.3 % (0-2); HEMATOCRIT 33.1 % (36.0-47.0); HEMOGLOBIN 11.7 g/dL (12.0-15.5); LYMPHOCYTES % (AUTO) 12.6 % (13-45); MEAN CORPUSCULAR HEMOGLOBIN 31.2 pg (27.0-33.4); MEAN CORPUSCULAR HGB CONC 35.3 g/dL (32.0-36.0); MEAN CORPUSCULAR VOLUME 88 fl (80-97); MONOCYTES % (AUTO) 12.3 % (3-13); PLATELET COUNT 169 10^3/uL (150-450); RED BLOOD COUNT 3.74 10^6/uL (3.72-5.28); RED CELL DISTRIBUTION WIDTH 13.7 % (11.5-14.0); SEGMENTED NEUTROPHILS % (AUTO) 74.8 % (42-78); TOTAL CELLS COUNTED % (AUTO) 100 %; WHITE BLOOD COUNT 7.9 10^3/uL (4.0-10.5)
[2019-01-26] MEDS: PANTOPRAZOLE SODIUM 40 MG TABLET.DR PO SCH (05:43)
[2019-01-26 06:01] LABS: ALANINE AMINOTRANSFERASE 12 U/L (9-52); ALBUMIN 3.3 g/dL (3.5-5.0); ALKALINE PHOSPHATASE 113 U/L (38-126); ANION GAP 12 (5-19); ASPARTATE AMINO TRANSFERASE 45 U/L (14-36); BILIRUBIN,DIRECT 0.4 mg/dL (0.0-0.4); BLOOD UREA NITROGEN 4 mg/dL (7-20); CALCIUM 8.7 mg/dL (8.4-10.2); CARBON DIOXIDE 23 mmol/L (22-30); CHLORIDE 95 mmol/L (98-107); GLUCOSE 119 mg/dL (75-110); POTASSIUM 4.4 mmol/L (3.6-5.0); SODIUM 130.4 mmol/L (137-145); TOTAL PROTEIN 5.7 g/dL (6.3-8.2)
--- NOTE | 2019-01-26 08:05 | PDOC PROGRESS REPORT ---
Subjective Progress Note for:: 01/26/19 Subjective:: Patient lying in bed comfortably. States her pain has been controlled and block is wearing off. Reason For Visit: ALCOHOL INTOXICATION, FALL AT HOME, LEFT WRIST Physical Exam Vital Signs: Temp Pulse Resp BP Pulse Ox 98.6 F 128 H 19 151/81 H 98 01/26/19 04:13 01/26/19 04:13 01/26/19 04:13 01/26/19 04:13 01/26/19 04:13 Intake & Output 01/25/19 01/26/19 01/27/19 06:59 06:59 06:59 Intake Total 1020 1091 Output Total 600 30 Balance 420 1061 Weight 78.1 kg 78.1 kg Musculoskeletal exam: PRESENT: other - Left upper extremity: Splint intact. Mild shadowing along the radial aspect. Cap refill less than 2 seconds. Swelling of the digits with ecchymosis. Compartments soft and compressible no sign of compartment syndrome. Intact IP/MP joint flexion/extension. Intact sensation to light touch. No pain with passive stretch. Results Laboratory Results: 01/26/19 05:25 01/26/19 05:25 01/26/19 01/26/19 05:25 05:25 WBC 7.9 RBC 3.74 Hgb 11.7 L Hct 33.1 L MCV 88 MCH 31.2 MCHC 35.3 RDW 13.7 Plt Count 169 Seg Neutrophils % 74.8 Lymphocytes % 12.6 L Monocytes % 12.3 Eosinophils % 0.0 Basophils % 0.3 Absolute Neutrophils 5.9 Absolute Lymphocytes 1.0 Absolute Monocytes 1.0 Absolute Eosinophils 0.0 Absolute Basophils 0.0 Sodium 130.4 L Potassium 4.4 Chloride 95 L Carbon Dioxide 23 Anion Gap 12 BUN 4 L Creatinine 0.55 Est GFR ( Amer) > 60 Est GFR (Non-Af Amer) > 60 Glucose 119 H Calcium 8.7 Total Bilirubin 1.0 AST 45 H ALT 12 Alkaline Phosphatase 113 Total Protein 5.7 L Albumin 3.3 L Impressions: Cervical Spine X-Ray 01/23/19 17:20 IMPRESSION: Anterolisthesis of C3 on C4. Soft tissue calcifications. Etiology uncertain. Is there a remote history of radiation? No acute finding. Head CT 01/23/19 17:23 IMPRESSION: No acute intracranial pathology. EVIDENCE OF ACUTE STROKE: NO. Wrist X-Ray 01/25/19 00:00 IMPRESSION: Fluoroscopic guidance was utilized for open reduction and internal fixation of distal radial and ulnar fractures. copyright 2011 [employer]- All Rights Reserved Assessment & Plan - Diagnosis (1) Closed fracture distal radius and ulna Qualifiers: Encounter type: initial encounter Laterality: left Qualified Code(s): S52.502A - Unspecified fracture of the lower end of left radius, initial encounter for closed fracture; S52.602A - Unspecified fracture of lower end of left ulna, initial encounter for closed fracture Is this a current diagnosis for this admission?: Yes Plan: Postop day #1 status post ORIF distal radius/ulna 1. Nonweightbearing left upper extremity. 2. We will consult physical therapy for mobilization 3. Have recommended switching Jarrod wrap due to blood shadowing 4. Discharge planning patient medically stable for discharge once medically cleared.
--- NOTE | 2019-01-26 11:52 | PDOC PROGRESS REPORT ---
Subjective Progress Note for:: 01/26/19 Subjective:: Patient is currently doing fair Patient underwent for ORIF of the left wrist fracture seen by the Ortho today No chest pain no short of breath Reason For Visit: ALCOHOL INTOXICATION, FALL AT HOME, LEFT WRIST Physical Exam Vital Signs: Temp Pulse Resp BP Pulse Ox 99.1 F 114 H 16 150/59 H 96 01/26/19 07:26 01/26/19 07:26 01/26/19 07:26 01/26/19 07:26 01/26/19 07:26 Intake & Output 01/25/19 01/26/19 01/27/19 06:59 06:59 06:59 Intake Total 1020 1091 Output Total 600 30 Balance 420 1061 Weight 78.1 kg 78.1 kg General appearance: PRESENT: no acute distress, well-developed, well-nourished Head exam: PRESENT: atraumatic, normocephalic Eye exam: PRESENT: conjunctiva pink, EOMI, PERRLA. ABSENT: scleral icterus Ear exam: PRESENT: normal external ear exam Mouth exam: PRESENT: moist, tongue midline Neck exam: PRESENT: full ROM. ABSENT: carotid bruit, JVD, lymphadenopathy, thyr omegaly Respiratory exam: PRESENT: clear to auscultation cas Cardiovascular exam: PRESENT: RRR. ABSENT: diastolic murmur, rubs, systolic murmur Vascular exam: PRESENT: normal capillary refill GI/Abdominal exam: PRESENT: normal bowel sounds, soft. ABSENT: distended, guarding, mass, organolmegaly, rebound, tenderness Rectal exam: PRESENT: deferred Neurological exam: PRESENT: alert, awake, oriented to person, oriented to place, oriented to time, oriented to situation, CN II-XII grossly intact. ABSENT: motor sensory deficit Psychiatric exam: PRESENT: appropriate affect, normal mood. ABSENT: homicidal ideation, suicidal ideation Skin exam: PRESENT: dry, intact, warm. ABSENT: cyanosis, rash Results Laboratory Results: 01/26/19 05:25 01/26/19 05:25 01/26/19 01/26/19 05:25 05:25 WBC 7.9 RBC 3.74 Hgb 11.7 L Hct 33.1 L MCV 88 MCH 31.2 MCHC 35.3 RDW 13.7 Plt Count 169 Seg Neutrophils % 74.8 Lymphocytes % 12.6 L Monocytes % 12.3 Eosinophils % 0.0 Basophils % 0.3 Absolute Neutrophils 5.9 Absolute Lymphocytes 1.0 Absolute Monocytes 1.0 Absolute Eosinophils 0.0 Absolute Basophils 0.0 Sodium 130.4 L Potassium 4.4 Chloride 95 L Carbon Dioxide 23 Anion Gap 12 BUN 4 L Creatinine 0.55 Est GFR ( Amer) > 60 Est GFR (Non-Af Amer) > 60 Glucose 119 H Calcium 8.7 Total Bilirubin 1.0 AST 45 H ALT 12 Alkaline Phosphatase 113 Total Protein 5.7 L Albumin 3.3 L Impressions: Cervical Spine X-Ray 01/23/19 17:20 IMPRESSION: Anterolisthesis of C3 on C4. Soft tissue calcifications. Etiology uncertain. Is there a remote history of radiation? No acute finding. Head CT 01/23/19 17:23 IMPRESSION: No acute intracranial pathology. EVIDENCE OF ACUTE STROKE: NO. Wrist X-Ray 01/25/19 00:00 IMPRESSION: Fluoroscopic guidance was utilized for open reduction and internal fixation of distal radial and ulnar fractures. copyright 2010 [employer]- All Rights Reserved Assessment & Plan - Diagnosis (1) Alcohol intoxication Qualifiers: Complication of substance-induced condition: with unspecified complication Qualified Code(s): F10.929 - Alcohol use, unspecified with intoxication, unspecified Is this a current diagnosis for this admission?: Yes Plan: Continues to continues to watch for any withdrawal Start the patient on a thiamine and multivitamin (2) Closed fracture distal radius and ulna Qualifiers: Encounter type: initial encounter Laterality: left Qualified Code(s): S52.502A - Unspecified fracture of the lower end of left radius, initial encounter for closed fracture; S52.602A - Unspecified fracture of lower end of left ulna, initial encounter for closed fracture Is this a current diagnosis for this admission?: Yes Plan: Status post surgery (3) Fall at home Qualifiers: Encounter type: initial encounter Qualified Code(s): W19.XXXA - Unspecified fall, initial encounter; Y92.009 - Unspecified place in unspecified non- institutional (private) residence as the place of occurrence of the external cause Is this a current diagnosis for this admission?: Yes (4) Hypokalemia Is this a current diagnosis for this admission?: Yes Plan: We will recheck the potassiums (5) CHF (congestive heart failure) Qualifiers: Heart failure type: diastolic Heart failure chronicity: chronic Qualified Code(s): I50.32 - Chronic diastolic (congestive) heart failure Is this a current diagnosis for this admission?: Yes Plan: Continues to current medications (6) COPD (chronic obstructive pulmonary disease) Qualifiers: COPD type: unspecified COPD Qualified Code(s): J44.9 - Chronic obstructive pulmonary disease, unspecified Is this a current diagnosis for this admission?: Yes Plan: Continues to nebulizer treatments (7) Chronic atrial fibrillation Is this a current diagnosis for this admission?: Yes - Time Time Spent with patient: 15-24 minutes Medications reviewed and adjusted accordingly: Yes Anticipated discharge: Other Within: Other - Plan Summary Plan Summary: Will continues to monitor for any withdrawal
[2019-01-26] MEDS: HALOPERIDOL 1 MG TABLET PO SCH ×2 (13:41→23:26)
[2019-01-26] MEDS: THIAMINE HCL 100 MG TABLET PO SCH (13:41)
[2019-01-26] MEDS: MULTIVIT-STRESS FORMULA/ZINC TABLET PO SCH (13:41)
[2019-01-26] MEDS: VALSARTAN 40 MG TABLET PO SCH (13:44)
[2019-01-26] MEDS: ENOXAPARIN SODIUM INJ 40 MG/0.4 ML DISP.SYRIN SUBCUT SCH (14:00)
[2019-01-26] MEDS: IPRATROPIUM/ALBUTEROL 0.5-2.5 MG/3 ML AMPUL NEB PRN (14:51)
[2019-01-26] MEDS: RINGERS SOLUTION,LACTATED 1,000 ML IV PRN (23:55)
[2019-01-27 05:19] LABS: ABSOLUTE LYMPHOCYTES (AUTO) 1.3 10^3/uL (0.5-4.7); ABSOLUTE MONOCYTES (AUTO) 1.2 10^3/uL (0.1-1.4); ABSOLUTE NEUT (AUTO) 5.2 10^3/uL (1.7-8.2); BASOPHILS % (AUTO) 0.4 % (0-2); EOSINOPHILS % (AUTO) 0.3 % (0-6); HEMATOCRIT 32.1 % (36.0-47.0); HEMOGLOBIN 11.3 g/dL (12.0-15.5); LYMPHOCYTES % (AUTO) 17.3 % (13-45); MEAN CORPUSCULAR HEMOGLOBIN 31.3 pg (27.0-33.4); MEAN CORPUSCULAR HGB CONC 35.2 g/dL (32.0-36.0); MEAN CORPUSCULAR VOLUME 89 fl (80-97); PLATELET COUNT 173 10^3/uL (150-450); RED BLOOD COUNT 3.61 10^6/uL (3.72-5.28); RED CELL DISTRIBUTION WIDTH 13.6 % (11.5-14.0); TOTAL CELLS COUNTED % (AUTO) 100 %; WHITE BLOOD COUNT 7.8 10^3/uL (4.0-10.5)
[2019-01-27 05:47] LABS: ANION GAP 11 (5-19); BLOOD UREA NITROGEN 7 mg/dL (7-20); CALCIUM 8.4 mg/dL (8.4-10.2); CARBON DIOXIDE 24 mmol/L (22-30); CHLORIDE 94 mmol/L (98-107); GLUCOSE 110 mg/dL (75-110); SODIUM 129.4 mmol/L (137-145)
[2019-01-27 06:09] LABS: POTASSIUM 3.3 mmol/L (3.6-5.0)
[2019-01-27] MEDS: PANTOPRAZOLE SODIUM 40 MG TABLET.DR PO SCH (06:54)
[2019-01-27] MEDS: RINGERS SOLUTION,LACTATED 1,000 ML IV PRN (06:56)
[2019-01-27] MEDS ORDERED: POTASSIUM CHLORIDE 10 MEQ CAPSULE.ER PO ONE (08:30)
--- NOTE | 2019-01-27 09:38 | PDOC PROGRESS REPORT ---
Subjective Progress Note for:: 01/27/19 Subjective:: Postop day 2 Reason For Visit: ALCOHOL INTOXICATION, FALL AT HOME, LEFT WRIST Physical Exam Vital Signs: Temp Pulse Resp BP Pulse Ox 98.4 F 115 H 18 128/61 H 100 01/27/19 07:58 01/27/19 07:58 01/27/19 07:58 01/27/19 07:58 01/27/19 07:58 Intake & Output 01/26/19 01/27/19 01/28/19 06:59 06:59 06:59 Intake Total 1091 1561 Output Total 30 Balance 1061 1561 Weight 78.1 kg 79 kg Additional comments: Patient is alert and oriented x3 he is in no acute distress he is laying in bed comfortably. Patient is able to ambulate without any assistant dean of students. Patient has ulnar splint that is applied there is no leaking of fluid through the ulnar splint. Patient's cap refill is less than 2 seconds pulses were noted sensation is intact. Results Laboratory Results: 01/27/19 04:30 01/27/19 04:30 01/27/19 01/27/19 04:30 04:30 WBC 7.8 RBC 3.61 L Hgb 11.3 L Hct 32.1 L MCV 89 MCH 31.3 MCHC 35.2 RDW 13.6 Plt Count 173 Seg Neutrophils % 67.0 Lymphocytes % 17.3 Monocytes % 15.0 H Eosinophils % 0.3 Basophils % 0.4 Absolute Neutrophils 5.2 Absolute Lymphocytes 1.3 Absolute Monocytes 1.2 Absolute Eosinophils 0.0 Absolute Basophils 0.0 Sodium 129.4 L Potassium 3.3 L D Chloride 94 L Carbon Dioxide 24 Anion Gap 11 BUN 7 Creatinine 0.59 Est GFR ( Amer) > 60 Est GFR (Non-Af Amer) > 60 Glucose 110 Calcium 8.4 Impressions: Cervical Spine X-Ray 01/23/19 17:20 IMPRESSION: Anterolisthesis of C3 on C4. Soft tissue calcifications. Etiology uncertain. Is there a remote history of radiation? No acute finding. Head CT 01/23/19 17:23 IMPRESSION: No acute intracranial pathology. EVIDENCE OF ACUTE STROKE: NO. Wrist X-Ray 01/25/19 00:00 IMPRESSION: Fluoroscopic guidance was utilized for open reduction and internal fixation of distal radial and ulnar fractures. copyright 2010 [employer]- All Rights Reserved Assessment & Plan - Diagnosis (1) Closed fracture distal radius and ulna Qualifiers: Encounter type: initial encounter Laterality: left Qualified Code(s): S52.502A - Unspecified fracture of the lower end of left radius, initial encounter for closed fracture; S52.602A - Unspecified fracture of lower end of left ulna, initial encounter for closed fracture Is this a current diagnosis for this admission?: Yes - Plan Summary Plan Summary: Postop day #2 status post ORIF distal radius/ulna 1. Nonweightbearing left upper extremity. 2. We will consult physical therapy for mobilization 3. Have recommended switching Jarrod wrap due to blood shadowing 4. Discharge planning patient medically stable for discharge once medically cleared.
[2019-01-27] MEDS: VALSARTAN 40 MG TABLET PO SCH (10:43)
--- NOTE | 2019-01-27 10:47 | PDOC PROGRESS REPORT ---
Subjective Progress Note for:: 01/27/19 Subjective:: Patient is currently doing fair except a little bit more confused compared to yesterday No jittery No chest pain Blood pressure is all stable Denied any pain Discussed with the family on the bedside Reason For Visit: ALCOHOL INTOXICATION, FALL AT HOME, LEFT WRIST Physical Exam Vital Signs: Temp Pulse Resp BP Pulse Ox 98.4 F 115 H 18 128/61 H 100 01/27/19 07:58 01/27/19 07:58 01/27/19 07:58 01/27/19 07:58 01/27/19 07:58 Intake & Output 01/26/19 01/27/19 01/28/19 06:59 06:59 06:59 Intake Total 1091 1561 Output Total 30 Balance 1061 1561 Weight 78.1 kg 79 kg General appearance: PRESENT: no acute distress, well-developed, well-nourished Head exam: PRESENT: atraumatic, normocephalic Eye exam: PRESENT: conjunctiva pink, EOMI, PERRLA. ABSENT: scleral icterus Ear exam: PRESENT: normal external ear exam Mouth exam: PRESENT: moist, tongue midline Neck exam: PRESENT: full ROM. ABSENT: carotid bruit, JVD, lymphadenopathy, thyromegaly Respiratory exam: PRESENT: clear to auscultation cas Cardiovascular exam: PRESENT: RRR. ABSENT: diastolic murmur, rubs, systolic murmur Vascular exam: PRESENT: normal capillary refill GI/Abdominal exam: PRESENT: normal bowel sounds, soft. ABSENT: distended, guarding, mass, organolmegaly, rebound, tenderness Rectal exam: PRESENT: deferred Neurological exam: PRESENT: alert, awake, oriented to person, oriented to place. ABSENT: motor sensory deficit Psychiatric exam: PRESENT: appropriate affect, normal mood. ABSENT: homicidal ideation, suicidal ideation Skin exam: PRESENT: dry, intact, warm. ABSENT: cyanosis, rash Results Laboratory Results: 01/27/19 04:30 01/27/19 04:30 01/27/19 01/27/19 04:30 04:30 WBC 7.8 RBC 3.61 L Hgb 11.3 L Hct 32.1 L MCV 89 MCH 31.3 MCHC 35.2 RDW 13.6 Plt Count 173 Seg Neutrophils % 67.0 Lymphocytes % 17.3 Monocytes % 15.0 H Eosinophils % 0.3 Basophils % 0.4 Absolute Neutrophils 5.2 Absolute Lymphocytes 1.3 Absolute Monocytes 1.2 Absolute Eosinophils 0.0 Absolute Basophils 0.0 Sodium 129.4 L Potassium 3.3 L D Chloride 94 L Carbon Dioxide 24 Anion Gap 11 BUN 7 Creatinine 0.59 Est GFR ( Amer) > 60 Est GFR (Non-Af Amer) > 60 Glucose 110 Calcium 8.4 Impressions: Cervical Spine X-Ray 01/23/19 17:20 IMPRESSION: Anterolisthesis of C3 on C4. Soft tissue calcifications. Etiology uncertain. Is there a remote history of radiation? No acute finding. Head CT 01/23/19 17:23 IMPRESSION: No acute intracranial pathology. EVIDENCE OF ACUTE STROKE: NO. Wrist X-Ray 01/25/19 00:00 IMPRESSION: Fluoroscopic guidance was utilized for open reduction and internal fixation of distal radial and ulnar fractures. copyright 2010 [employer]- All Rights Reserved Assessment & Plan - Diagnosis (1) Alcohol intoxication Qualifiers: Complication of substance-induced condition: with unspecified complication Qualified Code(s): F10.929 - Alcohol use, unspecified with intoxication, unspe cified Is this a current diagnosis for this admission?: Yes Plan: We will start the patient on Ativan 0.5 mg every 6 as needed Continues to thiamine We will close monitor (2) Closed fracture distal radius and ulna Qualifiers: Encounter type: initial encounter Laterality: left Qualified Code(s): S52.502A - Unspecified fracture of the lower end of left radius, initial encounter for closed fracture; S52.602A - Unspecified fracture of lower end of left ulna, initial encounter for closed fracture Is this a current diagnosis for this admission?: Yes Plan: Status post surgery (3) Fall at home Qualifiers: Encounter type: initial encounter Qualified Code(s): W19.XXXA - Unspecified fall, initial encounter; Y92.009 - Unspecified place in unspecified non- institutional (private) residence as the place of occurrence of the external cause Is this a current diagnosis for this admission?: Yes (4) Hypokalemia Is this a current diagnosis for this admission?: Yes Plan: We will recheck the potassiums (5) CHF (congestive heart failure) Qualifiers: Heart failure type: diastolic Heart failure chronicity: chronic Qualified Code(s): I50.32 - Chronic diastolic (congestive) heart failure Is this a current diagnosis for this admission?: Yes Plan: Continues to current medications (6) COPD (chronic obstructive pulmonary disease) Qualifiers: COPD type: unspecified COPD Qualified Code(s): J44.9 - Chronic obstructive pulmonary disease, unspecified Is this a current diagnosis for this admission?: Yes Plan: Continues to nebulizer treatments (7) Chronic atrial fibrillation Is this a current diagnosis for this admission?: Yes - Time Time Spent with patient: 15-24 minutes Medications reviewed and adjusted accordingly: Yes Anticipated discharge: Home Within: Other - Plan Summary Plan Summary: see orders
[2019-01-27] MEDS: ENOXAPARIN SODIUM INJ 40 MG/0.4 ML DISP.SYRIN SUBCUT SCH (11:21)
[2019-01-27] MEDS: HALOPERIDOL 1 MG TABLET PO SCH ×2 (11:22→21:55)
[2019-01-27] MEDS: MULTIVIT-STRESS FORMULA/ZINC TABLET PO SCH (11:22)
[2019-01-27] MEDS: THIAMINE HCL 100 MG TABLET PO SCH (11:22)
[2019-01-27] MEDS: LORAZEPAM 0.5 MG TABLET PO PRN ×2 (11:22→21:55)
[2019-01-28] MEDS: PANTOPRAZOLE SODIUM 40 MG TABLET.DR PO SCH (05:56)
[2019-01-28 06:08] LABS: ABSOLUTE EOSINOPHILS # (AUTO) 0.1 10^3/uL (0.0-0.6); ABSOLUTE LYMPHOCYTES (AUTO) 1.5 10^3/uL (0.5-4.7); ABSOLUTE MONOCYTES (AUTO) 1.1 10^3/uL (0.1-1.4); BASOPHILS % (AUTO) 0.4 % (0-2); EOSINOPHILS % (AUTO) 0.7 % (0-6); HEMOGLOBIN 11.8 g/dL (12.0-15.5); LYMPHOCYTES % (AUTO) 17.2 % (13-45); MEAN CORPUSCULAR HEMOGLOBIN 30.7 pg (27.0-33.4); MEAN CORPUSCULAR HGB CONC 34.6 g/dL (32.0-36.0); MEAN CORPUSCULAR VOLUME 89 fl (80-97); MONOCYTES % (AUTO) 12.7 % (3-13); PLATELET COUNT 220 10^3/uL (150-450); RED BLOOD COUNT 3.83 10^6/uL (3.72-5.28); RED CELL DISTRIBUTION WIDTH 13.7 % (11.5-14.0); TOTAL CELLS COUNTED % (AUTO) 100 %; WHITE BLOOD COUNT 8.7 10^3/uL (4.0-10.5)
[2019-01-28 06:25] LABS: ANION GAP 13 (5-19); BLOOD UREA NITROGEN 7 mg/dL (7-20); CALCIUM 9.2 mg/dL (8.4-10.2); CARBON DIOXIDE 23 mmol/L (22-30); CHLORIDE 93 mmol/L (98-107); GLUCOSE 123 mg/dL (75-110); POTASSIUM 3.5 mmol/L (3.6-5.0); SODIUM 128.5 mmol/L (137-145)
--- NOTE | 2019-01-28 07:34 | PDOC PROGRESS REPORT ---
Subjective Progress Note for:: 01/28/19 Subjective:: Patient lying in bed comfortably. States her pain has been controlled. According to nursing staff she continues to have significant confusion at night and removes her splint and places full weight on her operative extremity despite cues to avoid weightbearing. Reason For Visit: ALCOHOL INTOXICATION, FALL AT HOME, LEFT WRIST Physical Exam Vital Signs: Temp Pulse Resp BP Pulse Ox 97.4 F 117 H 17 105/66 100 01/28/19 00:08 01/28/19 00:08 01/28/19 00:08 01/28/19 00:08 01/28/19 00:08 Intake & Output 01/27/19 01/28/19 01/29/19 06:59 06:59 06:59 Intake Total 1561 2600 Balance 1561 2600 Weight 79 kg 79.2 kg Musculoskeletal exam: PRESENT: other - Left wrist: Splint removed due to significant tightness and swelling. Splint reapplied loosely. There is some mild blood-tinged along the wound site no fresh blood noted. Intact flexion extension the IP/MP joints. EPL/FPL intact. Intact sensation to light touch. Ecchymosis and swelling throughout the hand. Compartments soft and compressible no sign of compartment syndrome Results Laboratory Results: 01/28/19 05:11 01/28/19 05:11 01/28/19 01/28/19 05:11 05:11 WBC 8.7 RBC 3.83 Hgb 11.8 L Hct 34.0 L MCV 89 MCH 30.7 MCHC 34.6 RDW 13.7 Plt Count 220 Seg Neutrophils % 69.0 Lymphocytes % 17.2 Monocytes % 12.7 Eosinophils % 0.7 Basophils % 0.4 Absolute Neutrophils 6.0 Absolute Lymphocytes 1.5 Absolute Monocytes 1.1 Absolute Eosinophils 0.1 Absolute Basophils 0.0 Sodium 128.5 L Potassium 3.5 L Chloride 93 L Carbon Dioxide 23 Anion Gap 13 BUN 7 Creatinine 0.63 Est GFR ( Amer) > 60 Est GFR (Non-Af Amer) > 60 Glucose 123 H Calcium 9.2 Impressions: Cervical Spine X-Ray 01/23/19 17:20 IMPRESSION: Anterolisthesis of C3 on C4. Soft tissue calcifications. Etiology uncertain. Is there a remote history of radiation? No acute finding. Head CT 01/23/19 17:23 IMPRESSION: No acute intracranial pathology. EVIDENCE OF ACUTE STROKE: NO. Wrist X-Ray 01/25/19 00:00 IMPRESSION: Fluoroscopic guidance was utilized for open reduction and internal fixation of distal radial and ulnar fractures. copyright 2011 [employer]- All Rights Reserved Assessment & Plan - Diagnosis (1) Closed fracture distal radius and ulna Qualifiers: Encounter type: initial encounter Laterality: left Qualified Code(s): S52 .502A - Unspecified fracture of the lower end of left radius, initial encounter for closed fracture; S52.602A - Unspecified fracture of lower end of left ulna, initial encounter for closed fracture Is this a current diagnosis for this admission?: Yes Plan: Postop day #3 status post ORIF distal radius/ulna 1. Nonweightbearing left upper extremity. Stressed the importance for nonweightbearing 2. Aggressive elevation unfortunately given patient's mental status she has difficulty following instructions including avoiding weightbearing, elevation and removal of the splint. 3. Discharge planning patient medically stable for discharge once medically cleared.
[2019-01-28] MEDS: HALOPERIDOL 1 MG TABLET PO SCH ×2 (10:09→22:08)
[2019-01-28] MEDS: VALSARTAN 40 MG TABLET PO SCH (10:09)
[2019-01-28] MEDS: MULTIVIT-STRESS FORMULA/ZINC TABLET PO SCH (10:09)
[2019-01-28] MEDS: THIAMINE HCL 100 MG TABLET PO SCH (10:09)
[2019-01-28] MEDS: ENOXAPARIN SODIUM INJ 40 MG/0.4 ML DISP.SYRIN SUBCUT SCH (10:10)
--- NOTE | 2019-01-28 10:53 | RADIOLOGY REPORT (SQ) ---
EXAM DESCRIPTION: NO CHG FLUORO COMPLETED DATE/TIME: 01/25/2019 5:38 pm REASON FOR STUDY: ORIF LT WRIST COMPARISON: None. FLUOROSCOPY TIME: 1 minutes 9 seconds 8 Images saved to PACS LIMITATIONS: None. PROCEDURE: ORIF left wrist FINDINGS: Images document the procedure. IMPRESSION: ORIF left wrist. Refer to operative note for further information. COMMENT: PQRS [id number]: Fluoroscopy time of the procedure is documented in the report. TECHNICAL DOCUMENTATION: JOB ID: [id number] [employer]- All Rights Reserved Reading location - IP/workstation name: [email or web address]
--- NOTE | 2019-01-28 18:59 | PDOC PROGRESS REPORT ---
Subjective Progress Note for:: 01/28/19 Subjective:: Patient is s/p ORIF left distal radius and distal ulnar shaft fractures surgery remain in external immobilizer splint. She denied any difficulty with breathing or chest pain. No reported fever or chills. Remain on supplemental oxygen via nasal cannula. Patient continue to demonstrate pperiods of confusion. Reason For Visit: ALCOHOL INTOXICATION, FALL AT HOME, LEFT WRIST Physical Exam Vital Signs: Temp Pulse Resp BP Pulse Ox 98.1 F 98 18 160/74 H 97 01/28/19 15:03 01/28/19 16:53 01/28/19 16:53 01/28/19 15:03 01/28/19 16:53 Intake & Output 01/27/19 01/28/19 01/29/19 06:59 06:59 06:59 Intake Total 1561 2600 200 Balance 1561 2600 200 Weight 79 kg 79.2 kg Physical Exam: General appearance: PRESENT: mild distress - due to pain Head exam: PRESENT: atraumatic, normocephalic Eye exam: PRESENT: conjunctiva pink, EOMI, PERRLA. ABSENT: pallor, scleral icterus Ear exam: PRESENT: normal external ear exam Mouth exam: PRESENT: moist Respiratory exam: PRESENT: clear to auscultation cas, decreased breath sounds Cardiovascular exam: PRESENT: RRR. ABSENT: diastolic murmur, rubs, systolic murmur GI/Abdominal exam: PRESENT: normal bowel sounds, soft. ABSENT: distended, guarding, mass, organomegaly, rebound, tenderness Extremities exam: PRESENT: tenderness - left wrist joint region. ABSENT: pedal edema Musculoskeletal exam: PRESENT: left wrist joint surgical site dressing with external immobilizer in use. ABSENT: full ROM - left wrist joint Neurological exam: PRESENT: alert with some degree of confusion in her responses, awake CN II-XII grossly intact. ABSENT: motor sensory deficit Psychiatric exam: PRESENT: appropriate affect, normal mood. ABSENT: homicidal ideation, suicidal ideation Skin exam: PRESENT: dry, warm Results Laboratory Results: 01/28/19 05:11 01/28/19 05:11 01/28/19 01/28/19 05:11 05:11 WBC 8.7 RBC 3.83 Hgb 11.8 L Hct 34.0 L MCV 89 MCH 30.7 MCHC 34.6 RDW 13.7 Plt Count 220 Seg Neutrophils % 69.0 Lymphocytes % 17.2 Monocytes % 12.7 Eosinophils % 0.7 Basophils % 0.4 Absolute Neutrophils 6.0 Absolute Lymphocytes 1.5 Absolute Monocytes 1.1 Absolute Eosinophils 0.1 Absolute Basophils 0.0 Sodium 128.5 L Potassium 3.5 L Chloride 93 L Carbon Dioxide 23 Anion Gap 13 BUN 7 Creatinine 0.63 Est GFR ( Amer) > 60 Est GFR (Non-Af Amer) > 60 Glucose 123 H Calcium 9.2 Impressions: Cervical Spine X-Ray 01/23/19 17:20 IMPRESSION: Anterolisthesis of C3 on C4. Soft tissue calcifications. Etiology uncertain. Is there a remote history of radiation? No acute finding. Head CT 01/23/19 17:23 IMPRESSION: No acute intracranial pathology. EVIDENCE OF ACUTE STROKE: NO. Fluoroscopy 01/25/19 00:00 IMPRESSION: ORIF left wrist. Refer to operative note for further information. Wrist X-Ray 01/25/19 00:00 IMPRESSION: Fluoroscopic guidance was utilized for open reduction and internal fixation of distal radial and ulnar fractures. copyright 2010 [employer]- All Rights Reserved Assessment & Plan - Diagnosis (1) Alcohol intoxication Qualifiers: Complication of substance-induced condition: with unspecified complication Qualified Code(s): F10.929 - Alcohol use, unspecified with intoxication, unspecified Is this a current diagnosis for this admission?: Yes (2) Fall at home Qualifiers: Encounter type: initial encounter Qualified Code(s): W19.XXXA - Unspecified fall, initial encounter; Y92.009 - Unspecified place in unspecified non- institutional (private) residence as the place of occurrence of the external cause Is this a current diagnosis for this admission?: Yes (3) Closed fracture distal radius and ulna Qualifiers: Encounter type: initial encounter Laterality: left Qualified Code(s): S5 2.502A - Unspecified fracture of the lower end of left radius, initial encounter for closed fracture; S52.602A - Unspecified fracture of lower end of left ulna, initial encounter for closed fracture Is this a current diagnosis for this admission?: Yes (4) Hypokalemia Is this a current diagnosis for this admission?: Yes (5) Hyponatremia Is this a current diagnosis for this admission?: Yes (6) COPD (chronic obstructive pulmonary disease) Qualifiers: COPD type: unspecified COPD Qualified Code(s): J44.9 - Chronic obstructive pulmonary disease, unspecified Is this a current diagnosis for this admission?: Yes (7) Chronic atrial fibrillation Is this a current diagnosis for this admission?: Yes (8) CHF (congestive heart failure) Qualifiers: Heart failure type: diastolic Heart failure chronicity: chronic Qualified Code(s): I50.32 - Chronic diastolic (congestive) heart failure Is this a current diagnosis for this admission?: Yes (9) HTN (hypertension) Qualifiers: Hypertension type: essential hypertension Qualified Code(s): I10 - Essential (primary) hypertension Is this a current diagnosis for this admission?: Yes (10) HLD (hyperlipidemia) Qualifiers: Hyperlipidemia type: pure hypercholesterolemia Qualified Code(s): E78.00 - Pure hypercholesterolemia, unspecified Is this a current diagnosis for this admission?: Yes (11) GERD (gastroesophageal reflux disease) Qualifiers: Esophagitis presence: esophagitis presence not specified Qualified Code(s): K21.9 - Gastro-esophageal reflux disease without esophagitis Is this a current diagnosis for this admission?: Yes (12) Acute delirium Is this a current diagnosis for this admission?: Yes Plan: Most likely due to alcohol abuse and withdrawal. She is refusing Ativan but will accept Lorazepam. Increase Haloperidol to 1 mg po q12 hours. (13) Hypokalemia due to inadequate potassium intake Is this a current diagnosis for this admission?: Yes Plan: She will receive oral potassium replacement therapy. Monitor serum potassium and magnesium level. (14) Hyponatremia with normal extracellular fluid volume Is this a current diagnosis for this admission?: Yes Plan: Patient has been removing her peripheral IV access and at increase risk with central access placement due to her confusional state. Maintain on liberalized diet for low sodium correction. - Time Time Spent with patient: 25-34 minutes Medications reviewed and adjusted accordingly: Yes Anticipated discharge: Home with Homehealth Within: Other - Inpatient Certification Based on my medical assessment, after consideration of the patient's comorbi dities, presenting symptoms, or acuity I expect that the services needed warrant INPATIENT care.: Yes I certify that my determination is in accordance with my understanding of Medicare's requirements for reasonable and necessary INPATIENT services [42 CFR 412.3e].: Yes Medical Necessity: Need Close Monitoring Due to Risk of Patient Decompensation, Need For Continuous Telemetry Monitoring, Need for Surgery, Risk of Complication if Not Cared For in Hospital, Risk of Diagnosis Which Will Require Inpatient Eval/Care/Monitoring Post Hospital Care: D/C Community Case Manager Documentation - Plan Summary Plan Summary: See attending physician orders as per above care plan. I had extensive discussion with family at bedside regarding information that patient have been an alcoholic all her life, current care plan and prognosis. She will need continue inpatient care due to concern about withdrawal symptoms and electrolytes abnormality.
[2019-01-28] MEDS: POTASSIUM CHLORIDE 10 MEQ CAPSULE.ER PO SCH (22:08)
[2019-01-29] MEDS: POTASSIUM CHLORIDE 10 MEQ CAPSULE.ER PO SCH ×3 (04:06→16:59)
[2019-01-29] MEDS: PANTOPRAZOLE SODIUM 40 MG TABLET.DR PO SCH (05:52)
[2019-01-29 07:17] LABS: ANION GAP 16 (5-19); BLOOD UREA NITROGEN 7 mg/dL (7-20); CARBON DIOXIDE 21 mmol/L (22-30); CHLORIDE 94 mmol/L (98-107); GLUCOSE 108 mg/dL (75-110); POTASSIUM 3.3 mmol/L (3.6-5.0); SODIUM 131.1 mmol/L (137-145)
--- NOTE | 2019-01-29 08:41 | PDOC PROGRESS REPORT ---
Subjective Progress Note for:: 01/29/19 Subjective:: Patient is more lucid and appropriate this morning. Oriented to person, place and time. Demonstrate appropriate insight into her pre-hospitalization events. She denied chest pain or difficulty with breathing. No nausea, vomiting, or abdominal pain. No reported fever or chills. Reason For Visit: ALCOHOL INTOXICATION, FALL AT HOME, LEFT WRIST Physical Exam Vital Signs: Temp Pulse Resp BP Pulse Ox 97.6 F 119 H 16 158/72 H 98 01/29/19 08:07 01/29/19 08:07 01/29/19 08:07 01/29/19 08:07 01/29/19 08:07 Intake & Output 01/28/19 01/29/19 01/30/19 06:59 06:59 06:59 Intake Total 2600 350 Balance 2600 350 Weight 79.2 kg 78.9 kg Physical Exam: General appearance: PRESENT: mild distress - due to pain Head exam: PRESENT: atraumatic, normocephalic Eye exam: PRESENT: conjunctiva pink, EOMI, PERRLA. ABSENT: pallor, scleral icterus Ear exam: PRESENT: normal external ear exam Mouth exam: PRESENT: moist Respiratory exam: PRESENT: clear to auscultation cas, decreased breath sounds Cardiovascular exam: PRESENT: RRR. ABSENT: diastolic murmur, rubs, systolic murmur GI/Abdominal exam: PRESENT: normal bowel sounds, soft. ABSENT: distended, guarding, mass, organomegaly, rebound, tenderness Extremities exam: PRESENT: tenderness - left wrist joint region. ABSENT: pedal edema Musculoskeletal exam: PRESENT: left wrist joint surgical site dressing with external immobilizer in use and swelling to her left hand and fingers. ABSENT: full ROM - left wrist joint Neurological exam: PRESENT: alert with improvement in her confusional state, awake, fully oriented, CN II-XII grossly intact. ABSENT: motor sensory deficit Psychiatric exam: PRESENT: appropriate affect, normal mood. ABSENT: homicidal ideation, suicidal ideation Skin exam: PRESENT: dry, warm Results Laboratory Results: 01/28/19 05:11 01/29/19 06:15 01/29/19 06:15 Sodium 131.1 L Potassium 3.3 L Chloride 94 L Carbon Dioxide 21 L Anion Gap 16 BUN 7 Creatinine 0.56 Est GFR ( Amer) > 60 Est GFR (Non-Af Amer) > 60 Glucose 108 Calcium 9.0 Impressions: Cervical Spine X-Ray 01/23/19 17:20 IMPRESSION: Anterolisthesis of C3 on C4. Soft tissue calcifications. Etiology uncertain. Is there a remote history of radiation? No acute finding. Head CT 01/23/19 17:23 IMPRESSION: No acute intracranial pathology. EVIDENCE OF ACUTE STROKE: NO. Fluoroscopy 01/25/19 00:00 IMPRESSION: ORIF left wrist. Refer to operative note for further information. Wrist X-Ray 01/25/19 00:00 IMPRESSION: Fluoroscopic guidance was utilized for open reduction and internal fixation of distal radial and ulnar fractures. copyright 2010 [employer]- All Rights Reserved Assessment & Plan - Diagnosis (1) Alcohol intoxication Qualifiers: Complication of substance-induced condition: with unspecified complication Qualified Code(s): F10.929 - Alcohol use, unspecified with intoxication, unspecified Is this a current diagnosis for this admission?: Yes (2) Fall at home Qualifiers: Encounter type: initial encounter Qualified Code(s): W19.XXXA - Unspecified fall, initial encounter; Y92.009 - Unspecified place in unspecified non- institutional (private) residence as the place of occurrence of the external cause Is this a current diagnosis for this admission?: Yes (3) Closed fracture distal radius and ulna Qualifiers: Encounter type: initial encounter Laterality: left Qualified Code(s): S52.502A - Unspecified fracture of the lower end of left radius, initial encounter for closed fracture; S52.602A - Unspecified fracture of lower end of left ulna, initial encounter for closed fracture Is this a current diagnosis for this admission?: Yes (4) Hypokalemia Is this a current diagnosis for this admission?: Yes (5) Hyponatremia Is this a current diagnosis for this admission?: Yes (6) COPD (chronic obstructive pulmonary disease) Qualifiers: COPD type: unspecified COPD Qualified Code(s): J44.9 - Chronic obstructive pulmonary disease, unspecified Is this a current diagnosis for this admission?: Yes (7) Chronic atrial fibrillation Is this a current diagnosis for this admission?: Yes (8) CHF (congestive heart failure) Qualifiers: Heart failure type: diastolic Heart failure chronicity: chronic Qualified Code(s): I50.32 - Chronic diastolic (congestive) heart failure Is this a current diagnosis for this admission?: Yes (9) HTN (hypertension) Qualifiers: Hypertension type: essential hypertension Qualified Code(s): I10 - Essential (primary) hypertension Is this a current diagnosis for this admission?: Yes (10) HLD (hyperlipidemia) Qualifiers: Hyperlipidemia type: pure hypercholesterolemia Qualified Code(s): E78.00 - Pure hypercholesterolemia, unspecified Is this a current diagnosis for this admission?: Yes (11) GERD (gastroesophageal reflux disease) Qualifiers: Esophagitis presence: esophagitis presence not specified Qualified Code(s): K21.9 - Gastro-esophageal reflux disease without esophagitis Is this a current diagnosis for this admission?: Yes (12) Acute delirium Is this a current diagnosis for this admission?: Yes (13) Hypokalemia due to inadequate potassium intake Is this a current diagnosis for this admission?: Yes (14) Hyponatremia with normal extracellular fluid volume Is this a current diagnosis for this admission?: Yes - Time Time Spent with patient: 25-34 minutes Medications reviewed and adjusted accordingly: Yes Anticipated discharge: Home with Homehealth Within: Other - Inpatient Certification Based on my medical assessment, after consideration of the patient's comorbidities, presenting symptoms, or acuity I expect that the services needed warrant INPATIENT care.: Yes I certify that my determination is in accordance with my understanding of Medicare's requirements for reasonable and necessary INPATIENT services [42 CFR 412.3e].: Yes Medical Necessity: Significant Comorbidiites Make Outpatient Treatment Too Risk y, Need Close Monitoring Due to Risk of Patient Decompensation, Need For Continuous Telemetry Monitoring, Need for Surgery, Risk of Complication if Not Cared For in Hospital, Risk of Diagnosis Which Will Require Inpatient Eval/Care/Monitoring Post Hospital Care: D/C Medical Front Desk Coordinator Documentation - Plan Summary Plan Summary: Patient will receive potassium and magnesium replacement therapy. Continue on all other current medication management. Possible discharge home tomorrow if she continue to show improvement in her delirium
[2019-01-29] MEDS: HALOPERIDOL 1 MG TABLET PO SCH ×2 (10:27→21:38)
[2019-01-29] MEDS: MULTIVIT-STRESS FORMULA/ZINC TABLET PO SCH (10:27)
[2019-01-29] MEDS: MAGNESIUM OXIDE 400 MG TABLET PO SCH (10:27)
[2019-01-29] MEDS: ENOXAPARIN SODIUM INJ 40 MG/0.4 ML DISP.SYRIN SUBCUT SCH (10:27)
[2019-01-29] MEDS: MAGNESIUM SULFATE/D5W 1 GM/100 ML RTUPB IV SCH ×2 (10:28→12:35)
[2019-01-29] MEDS: VALSARTAN 40 MG TABLET PO SCH (10:28)
[2019-01-29] MEDS: THIAMINE HCL 100 MG TABLET PO SCH (10:28)
--- NOTE | 2019-01-29 11:07 | PDOC PROGRESS REPORT ---
Subjective Progress Note for:: 01/29/19 Subjective:: Patient lying in bed comfortably. States her pain has been controlled. According to nursing staff her confusion has improved but still places full weight on her operative extremity despite cues to avoid weightbearing. Reason For Visit: ALCOHOL INTOXICATION, FALL AT HOME, LEFT WRIST Physical Exam Vital Signs: Temp Pulse Resp BP Pulse Ox 97.6 F 119 H 16 158/72 H 98 01/29/19 08:07 01/29/19 08:07 01/29/19 08:07 01/29/19 08:07 01/29/19 08:07 Intake & Output 01/28/19 01/29/19 01/30/19 06:59 06:59 06:59 Intake Total 2600 350 Balance 2600 350 Weight 79.2 kg 78.9 kg Musculoskeletal exam: PRESENT: other - Left wrist: Splint intact. Notable ecchymosis and swelling along the dorsum of the hand no change compared to previous examination. Compartments soft and compressible no sign of compartment syndrome intact IP/MP joint flexion/extension without pain. EPL/FPL intact Results Laboratory Results: 01/28/19 05:11 01/29/19 06:15 01/29/19 06:15 Sodium 131.1 L Potassium 3.3 L Chloride 94 L Carbon Dioxide 21 L Anion Gap 16 BUN 7 Creatinine 0.56 Est GFR ( Amer) > 60 Est GFR (Non-Af Amer) > 60 Glucose 108 Calcium 9.0 Impressions: Cervical Spine X-Ray 01/23/19 17:20 IMPRESSION: Anterolisthesis of C3 on C4. Soft tissue calcifications. Etiology uncertain. Is there a remote history of radiation? No acute finding. Head CT 01/23/19 17:23 IMPRESSION: No acute intracranial pathology. EVIDENCE OF ACUTE STROKE: NO. Fluoroscopy 01/25/19 00:00 IMPRESSION: ORIF left wrist. Refer to operative note for further information. Wrist X-Ray 01/25/19 00:00 IMPRESSION: Fluoroscopic guidance was utilized for open reduction and internal fixation of distal radial and ulnar fractures. copyright 2010 [employer]- All Rights Reserved Assessment & Plan - Diagnosis (1) Closed fracture distal radius and ulna Qualifiers: Encounter type: initial encounter Laterality: left Qualified Code(s): S52.502A - Unspecified fracture of the lower end of left radius, initial encounter for closed fracture; S52.602A - Unspecified fracture of lower end of left ulna, initial encounter for closed fracture Is this a current diagnosis for this admission?: Yes Plan: Postop day #4 status post ORIF distal radius/ulna 1. Nonweightbearing left upper extremity. Stressed the importance for nonweightbearing 2. Aggressive elevation unfortunately given patient's mental status she has had some difficulty following instructions including avoiding weightbearing, elevation and removal of the splint. 3. Discharge planning patient medically stable for discharge once medically luis enrique ared, follow-up in 10 days
[2019-01-29] MEDS ORDERED: POTASSIUM CHLORIDE 10 MEQ CAPSULE.ER PO ONE (16:56)
[2019-01-30 04:41] LABS: ABSOLUTE EOSINOPHILS # (AUTO) 0.1 10^3/uL (0.0-0.6); ABSOLUTE LYMPHOCYTES (AUTO) 1.7 10^3/uL (0.5-4.7); ABSOLUTE MONOCYTES (AUTO) 0.9 10^3/uL (0.1-1.4); ABSOLUTE NEUT (AUTO) 4.6 10^3/uL (1.7-8.2); BASOPHILS % (AUTO) 0.6 % (0-2); EOSINOPHILS % (AUTO) 1.2 % (0-6); HEMATOCRIT 34.3 % (36.0-47.0); HEMOGLOBIN 11.8 g/dL (12.0-15.5); LYMPHOCYTES % (AUTO) 23.1 % (13-45); MEAN CORPUSCULAR HEMOGLOBIN 30.8 pg (27.0-33.4); MEAN CORPUSCULAR HGB CONC 34.5 g/dL (32.0-36.0); MEAN CORPUSCULAR VOLUME 89 fl (80-97); MONOCYTES % (AUTO) 12.2 % (3-13); PLATELET COUNT 255 10^3/uL (150-450); RED BLOOD COUNT 3.84 10^6/uL (3.72-5.28); RED CELL DISTRIBUTION WIDTH 13.3 % (11.5-14.0); SEGMENTED NEUTROPHILS % (AUTO) 62.9 % (42-78); TOTAL CELLS COUNTED % (AUTO) 100 %; WHITE BLOOD COUNT 7.3 10^3/uL (4.0-10.5)
[2019-01-30 05:03] LABS: ANION GAP 11 (5-19); BLOOD UREA NITROGEN 10 mg/dL (7-20); CALCIUM 8.9 mg/dL (8.4-10.2); CARBON DIOXIDE 23 mmol/L (22-30); CHLORIDE 99 mmol/L (98-107); GLUCOSE 120 mg/dL (75-110); POTASSIUM 4.2 mmol/L (3.6-5.0); SODIUM 132.6 mmol/L (137-145)
[2019-01-30] MEDS: PANTOPRAZOLE SODIUM 40 MG TABLET.DR PO SCH (05:35)
[2019-01-30 08:26] VITALS: BP 151/62
--- NOTE | 2019-01-30 08:37 | PDOC DISCHARGE SUMMARY ---
General - Admit/Disc Date/PCP Admission Date/Primary Care Provider: 01/23/19 19:49 STELLAALEXANDER NESBITT Discharge Date: 01/30/19 - Discharge Diagnosis (1) Alcohol intoxication Is this a current diagnosis for this admission?: Yes (2) Fall at home Is this a current diagnosis for this admission?: Yes (3) Closed fracture distal radius and ulna Is this a current diagnosis for this admission?: Yes (4) Hypokalemia Is this a current diagnosis for this admission?: Yes (5) Hyponatremia Is this a current diagnosis for this admission?: Yes (6) COPD (chronic obstructive pulmonary disease) Is this a current diagnosis for this admission?: Yes (7) Chronic atrial fibrillation Is this a current diagnosis for this admission?: Yes (8) CHF (congestive heart failure) Is this a current diagnosis for this admission?: Yes (9) HTN (hypertension) Is this a current diagnosis for this admission?: Yes (10) HLD (hyperlipidemia) Is this a current diagnosis for this admission?: Yes (11) GERD (gastroesophageal reflux disease) Is this a current diagnosis for this admission?: Yes (12) Acute delirium Is this a current diagnosis for this admission?: Yes (13) Hypokalemia due to inadequate potassium intake Is this a current diagnosis for this admission?: Yes (14) Hyponatremia with normal extracellular fluid volume Is this a current diagnosis for this admission?: Yes - Additional Information Resuscitation Status: Full Code Discharge Diet: As Tolerated Discharge Activity: No Lifting Over 10 Pounds, No Lifting/Push/Pulling Prescriptions: Haloperidol [Haldol 1 mg Tablet] 1 mg PO Q12 #60 tablet Magnesium Oxide [Mag-Ox 400 mg Tablet] 400 mg PO DAILY #30 tablet Multivit-Stress Formula/Zinc [Zbec Tablet] 1 tab PO DAILY #30 tablet Oxycodone HCl/Acetaminophen [Percocet 5-325 mg Tablet] 1 tab PO Q6 PRN #25 tablet PRN Reason: Thiamine HCl [Thiamine 100 mg Tablet] 100 mg PO DAILY #30 tablet Home Medications: Albuterol Sulfate [Proair HFA Inhalation Aerosol 8.5 gm MDI] 2 puff IH Q4 PRN 01/24/19 Apixaban [Eliquis 5 mg Tablet] 5 mg PO BID 01/24/19 Clonazepam [Klonopin] 0.5 mg PO BID 01/24/19 Doxycycline Hyclate [Vibramycin 100 mg Tablet] 100 mg PO BID 01/24/19 Furosemide [Lasix 20 mg Tablet] 20 mg PO QAM 01/24/19 Gabapentin [Neurontin] 800 mg PO TID 01/24/19 Hydroxyzine HCl [Atarax 10 mg Tablet] 10 mg PO TID PRN 01/24/19 Multivit-Min/Iron/Folic/Lutein [Centrum Silver Women Tablet] 1 each PO DAILY 01/24/19 Nystatin [Mycostatin Topical Powder 15 gm] 1 applic TP BID 01/24/19 Tiotropium [place] [Spiriva Respimat] 2 puff IH DAILY 01/24/19 Valsartan [Diovan 40 mg Tablet] 40 mg PO DAILY 01/24/19 Oxycodone HCl/Acetaminophen [Percocet 5-325 mg Tablet] 1 tab PO Q6 PRN #25 tablet 01/25/19 Haloperidol [Haldol 1 mg Tablet] 1 mg PO Q12 #60 tablet 01/30/19 Magnesium Oxide [Mag-Ox 400 mg Tablet] 400 mg PO DAILY #30 tablet 01/30/19 Multivit-Stress Formula/Zinc [Zbec Tablet] 1 tab PO DAILY #30 tablet 01/30/19 Thiamine HCl [Thiamine 100 mg Tablet] 100 mg PO DAILY #30 tablet 01/30/19 History of Present Illness History of Present Illness: SOHA DORSEY is a 73 year old female presented to the ED after a fall at home. She reported been stressed out at home due to her son and recent diagnosis of her with severe CAD. She admitted to alcohol ingestion at home and presented to the ED with smell of alcohol on her breathe. She reported falling on outstretched arm with subsequent development of pain and deformity in her left wrist region. She denied loss of consciousness, palpitation, or chest pain associated with her fall. Her initial evaluation in the ED was significant for left wrist comminuted fracture, alcohol intoxication, hyponatremia and hypokalemia. Her morbidities include chronic atrial fibrillation, diastolic congestive heart failure, hypertension, COPD, seizures, gastroesophageal reflux disease, osteoarthritis, and mixed anxiety and depression. She was advised hospitalization for further evaluation and management with orthopedic consultation. Hospital Course Hospital Course: Patient was admitted for alcohol intoxication complicated by fall at home with left wrist fracture involving distal ulna and radial bones. She was seen in consultation by orthopedic group and take to surgery for intervention. Post operative period was complicated by acute delirium from alcohol withdrawal. She was not very cooperative with medication administration and care of her surgical site. Her delirium has improved to allow discharge home today. She will follow up with the orthopedic group and myself in office as instructed upon discharge. Physical Exam Vital Signs: Temp Pulse Resp BP Pulse Ox 97.8 F 110 H 17 158/83 H 99 01/29/19 23:11 01/29/19 23:11 01/29/19 23:11 01/29/19 23:11 01/29/19 23:11 Intake & Output 01/29/19 01/30/19 01/31/19 06:59 06:59 06:59 Intake Total 350 818 Balance 350 818 Weight 78.9 kg Physical Exam: General appearance: PRESENT: mild distress - due to pain Head exam: PRESENT: atraumatic, normocephalic Eye exam: PRESENT: conjunctiva pink, EOMI, PERRLA. ABSENT: pallor, scleral icterus Ear exam: PRESENT: normal external ear exam Mouth exam: PRESENT: moist Respiratory exam: PRESENT: clear to auscultation cas, decreased breath sounds Cardiovascular exam: PRESENT: RRR. ABSENT: diastolic murmur, rubs, systolic murmur GI/Abdominal exam: PRESENT: normal bowel sounds, soft. ABSENT: distended, guarding, mass, organomegaly, rebound, tenderness Extremities exam: PRESENT: tenderness - left wrist joint region. ABSENT: pedal edema Musculoskeletal exam: PRESENT: left wrist joint surgical site dressing with external immobilizer in use and swelling to her left hand and fingers. ABSENT: full ROM - left wrist joint Neurological exam: PRESENT: alert with improvement in her confusional state, awake, fully oriented, CN II-XII grossly intact. ABSENT: motor sensory deficit Psychiatric exam: PRESENT: appropriate affect, normal mood. ABSENT: homicidal ideation, suicidal ideation Skin exam: PRESENT: dry, warm Results Laboratory Results: 01/30/19 04:15 01/30/19 04:15 01/30/19 01/30/19 04:15 04:15 WBC 7.3 RBC 3.84 Hgb 11.8 L Hct 34.3 L MCV 89 MCH 30.8 MCHC 34.5 RDW 13.3 Plt Count 255 Seg Neutrophils % 62.9 Lymphocytes % 23.1 Monocytes % 12.2 Eosinophils % 1.2 Basophils % 0.6 Absolute Neutrophils 4.6 Absolute Lymphocytes 1.7 Absolute Monocytes 0.9 Absolute Eosinophils 0.1 Absolute Basophils 0.0 Sodium 132.6 L Potassium 4.2 Chloride 99 Carbon Dioxide 23 Anion Gap 11 BUN 10 Creatinine 0.62 Est GFR ( Amer) > 60 Est GFR (Non-Af Amer) > 60 Glucose 120 H Calcium 8.9 Magnesium 2.2 Impressions: Cervical Spine X-Ray 01/23/19 17:20 IMPRESSION: Anterolisthesis of C3 on C4. Soft tissue calcifications. Etiology uncertain. Is there a remote history of radiation? No acute finding. Head CT 01/23/19 17:23 IMPRESSION: No acute intracranial pathology. EVIDENCE OF ACUTE STROKE: NO. Fluoroscopy 01/25/19 00:00 IMPRESSION: ORIF left wrist. Refer to operative note for further information. Wrist X-Ray 01/25/19 00:00 IMPRESSION: Fluoroscopic guidance was utilized for open reduction and internal fixation of distal radial and ulnar fractures. copyright 2011 [employer]- All Rights Reserved Qualifiers - * PATIENT BEING DISCHARGED WITH ANY OF THE FOLLOWING DIAGNOSIS: No Plan Discharge Plan: D/C home today. Follow up with orthopedic group and myself in the office as instructed upon discharge. I had extensive discussion with patient and spouse at bedside regarding alcohol consumption and abuse during my bedside visit today.
[2019-01-30] MEDS: HALOPERIDOL 1 MG TABLET PO SCH (09:13)
[2019-01-30] MEDS: MULTIVIT-STRESS FORMULA/ZINC TABLET PO SCH (09:13)
[2019-01-30] MEDS: THIAMINE HCL 100 MG TABLET PO SCH (09:13)
[2019-01-30] MEDS: VALSARTAN 40 MG TABLET PO SCH (09:13)
[2019-01-30] MEDS: MAGNESIUM OXIDE 400 MG TABLET PO SCH (09:13)
== END 2019-01-30 09:17 | disposition home or self-care (01) | DRG 982 ==
LOC: ER 16:14 → EH 19:49 → 5 21:00
PROVIDERS: ADMIT Internal Medicine Geriatric Medicine; ATTEND Internal Medicine Geriatric Medicine
PROC: 0PSL04Z Reposition Left Ulna with Internal Fixation Device, Open Approach (ICD-10-PCS; 2019-01-25)
PROC: 0PSJ04Z Reposition Left Radius with Internal Fixation Device, Open Approach (ICD-10-PCS; principal; 2019-01-25 14:45)
DX: E87.1 Hypo-osmolality and hyponatremia (principal); S52.502A Unspecified fracture of the lower end of left radius, initial encounter for closed fracture; I50.32 Chronic diastolic (congestive) heart failure; S52.602A Unspecified fracture of lower end of left ulna, initial encounter for closed fracture; F10.121 Alcohol abuse with intoxication delirium; E87.6 Hypokalemia; I48.2 Chronic atrial fibrillation; I11.0 Hypertensive heart disease with heart failure; J44.9 Chronic obstructive pulmonary disease, unspecified; K21.9 Gastro-esophageal reflux disease without esophagitis; E78.5 Hyperlipidemia, unspecified; M19.90 Unspecified osteoarthritis, unspecified site; F41.9 Anxiety disorder, unspecified; F32.9 Major depressive disorder, single episode, unspecified; Z90.49 Acquired absence of other specified parts of digestive tract; F17.200 Nicotine dependence, unspecified, uncomplicated; Z88.8 Allergy status to other drugs, medicaments and biological substances; W18.30XA Fall on same level, unspecified, initial encounter; Y92.009 Unspecified place in unspecified non-institutional (private) residence as the place of occurrence of the external cause
CPT/HCPCS: 01830; 36415; 70450; 72040; 80048; 80053; 80307; 81001; 83735; 85025; 85610; 85730; 93005; 93010; 99285; J1100; J1650; J2250; J2405; J2704; J2795; J3010; J3475; J3480; J3490; J7030; J7040; J7120; J7620

== ENCOUNTER 2019-02-15 00:54 | Inpatient (IN) | payer MEDICARE, OTHER ==
[2019-02-15] MEDS ORDERED: METHYLPREDNISOLONE INJ 125 MG/2 ML SDV IV ONE (01:01)
[2019-02-15] MEDS ORDERED: ALBUTEROL SULFATE 0.083% NEB 2.5 MG/3 ML AMPUL NEB ONE (01:01)
--- NOTE | 2019-02-15 01:03 | ER Document Report ---
ED General - General Stated Complaint: WEAKNESS Time Seen by Provider: 02/15/19 00:59 Primary Care Provider: STELLA NESBITT MD [Primary Care Provider] - Follow up as needed Cannot obtain history due to: Intoxicated, Unstable vital signs, Altered mental status Notes: Patient is a 73-year-old female with a past medical history of chronic alcohol abuse, COPD with nighttime oxygen dependency, recently hospitalized for hyponatremia, alcohol intoxication with subsequent withdrawal, fall with associated left upper extremity distal radius and ulna fracture who presents by EMS due to concerns of increased weakness and shortness of breath. History is extremely limited secondary to the patient's mental status at time of arrival. EMS states that the family members on scene were minimally helpful. Patient does admit to drinking heavily today. Apparently the patient's son alleges that the patient "breathes like that all the time" in regards to the patient's labor of breathing. Of note however on review of hospitalization data patient was not noted to be tachypnea, labored or hypoxic at baseline. History is otherwise limited secondary to patient's condition. TRAVEL OUTSIDE OF THE [place] IN LAST 30 DAYS: No - Related Data Allergies/Adverse Reactions: adhesive tape [Adhesive Tape] Allergy (Severe, Verified 05/25/18 10:16) peels skin off ceftriaxone sodium [From Rocephin] Allergy (Severe, Verified 05/25/18 10:16) redness/itch lorazepam [From Ativan] Adverse Reaction (Severe, Verified 05/26/18 13:33) Hallucinations Past Medical History - General Information source: Patient - Social History Smoking Status: Current Every Day Smoker Frequency of alcohol use: Heavy Drug Abuse: None Lives with: Family Family History: Reviewed & Not Pertinent - Past Medical History Cardiac Medical History: Reports: Hx Atrial Fibrillation - chronic, Hx Congestive Heart Failure, Hx Hypertension Denies: Hx Coronary Artery Disease, Hx Heart Attack, Hx Hypercholesterolemia, Hx Peripheral Vascular Disease, Hx Pulmonary Embolism, Hx Heart Murmur Pulmonary Medical History: Reports: Hx Bronchitis, Hx COPD Denies: Hx Asthma, Hx Pneumonia, Hx Respiratory Failure, Hx Sleep Apnea, Hx Tuberculosis Neurological Medical History: Reports: Hx Seizures. Denies: Hx Cerebrovascular Accident Endocrine Medical History: Denies: Hx Graves' Disease, Hx Hyperthyroidism, Hx Hypothyroidism Renal/ Medical History: Denies: Hx End Stage Renal Disease, Hx Kidney Stones, Hx Peritoneal Dialysis Malignancy Medical History: Denies: Hx Lung Cancer GI Medical History: Reports: Hx Gastroesophageal Reflux Disease, Hx Hepatitis, Hx Ulcer. Denies: Hx Crohn's Disease, Hx Hiatal Hernia, Hx Irritable Bowel, Hx Liver Failure, Hx Pancreatitis Musculoskeletal Medical History: Reports Hx Arthritis, Denies Hx Fibromyalgia, Denies Hx Multiple Sclerosis, Denies Hx Muscular Dystrophy Psychiatric Medical History: Reports: Hx Anxiety Denies: Hx Dementia, Hx Depression, Hx Post Traumatic Stress Disorder, Hx Schizophrenia Comment Only: Hx Bipolar Disorder - anxiety Traumatic Medical History: Denies: Hx Fractures Infectious Medical History: Reports: Hx Hepatitis Past Surgical History: Reports: Hx Cholecystectomy. Denies: Hx Appendectomy, Hx Bowel Surgery, Hx Section, Hx Colostomy, Hx Coronary Artery Bypass Graft, Hx Gastric Bypass Surgery, Hx Herniorrhaphy, Hx Hysterectomy, Hx Mastectomy, Hx Open Heart Surgery, Hx Pacemaker, Hx Tonsillectomy, Hx Tubal Ligation - Immunizations Immunizations up to date: Yes Hx Diphtheria, Pertussis, Tetanus Vaccination: No Hx Pneumococcal Vaccination: 07/14/11 Review of Systems - Review of Systems Notes: Constitutional: Negative for fever. Positive for general weakness HENT: Negative for sore throat. Eyes: Negative for visual changes. Cardiovascular: Negative for chest pain. Respiratory: Positive for shortness of breath and cough Gastrointestinal: Negative for abdominal pain, vomiting or diarrhea. Genitourinary: Negative for dysuria. Musculoskeletal: Negative for back pain. Skin: Negative for rash. Neurological: Negative for headaches, weakness or numbness. 10 point ROS negative except as marked above and in HPI. Physical Exam - Vital signs Vitals: Resp Pulse Ox 26 H 96 02/15/19 00:58 02/15/19 00:58 Interpretation: Tachycardic, Tachypneic Notes: PHYSICAL EXAMINATION: GENERAL: Frail, elderly female in moderate respiratory distress HEAD: Atraumatic, normocephalic. EYES: Pupils equal round and reactive to light, extraocular movements intact, sclera anicteric, conjunctiva are normal. ENT: nares patent, oropharynx clear without exudates. Moderately dry mucous membranes. NECK: Normal range of motion, supple without lymphadenopathy LUNGS: Moderate to severe respiratory distress, breathing 30-34 times per minute on initial assessment. Labored in her breathing. Retracting the abdominal and supraclavicular spaces. Diminished air movement throughout with coarse expiratory wheezing in all lung cherry. HEART: Irregular regular tachycardia without murmurs ABDOMEN: Soft, nontender, normoactive bowel sounds. No guarding, no rebound. No masses appreciated. EXTREMITIES: Immobilization of the distal left forearm, no pitting or edema. No cyanosis. NEUROLOGICAL: No focal neurological deficits. Moves all extremities spontaneously and on command. PSYCH: Moderately intoxicated, somewhat confused. Oriented to person SKIN: Warm, Dry, normal turgor, no rashes or lesions noted. Course - Re-evaluation Re-evalutation: 02/15/19 01:02 Patient presents in moderate respiratory distress labored breathing, retractions the abdominal and supra clavicular spaces. Coarse expiratory wheezing in all lung cherry. Patient is somewhat diaphoretic, somewhat listless. Has a history of alcohol withdrawal, chronic alcohol abuse and was recently hospitalized for a fall resulting in fracture of both bones of the forearm and the left side as well as a hospitalization complicated by hyponatremia and delirium. History is limited from the patient herself secondary to baseline mental status and likely intoxication. EMS did provide nebulizers in route with some improvement of the patient's work of breathing although she has noted to continue to be in moderate respiratory distress at the time of my evaluation. She is breathing 32 times per minute on initial assessment, BiPAP will be ordered. Chest x-ray, labs, EKG will be obtained. Patient is in guarded condition, will be reassessed at regular - Vital Signs Vital signs: Temp Pulse Resp BP Pulse Ox 97.6 F 22 H 105/45 L 97 02/15/19 01:37 02/15/19 02:01 02/15/19 02:00 02/15/19 02:01 - Laboratory Result Diagrams: 02/15/19 01:27 02/15/19 01:55 Laboratory results interpreted by me: 02/15/19 02/15/19 02/15/19 01:21 01:27 01:55 Hct 35.8 L Sodium Potassium Chloride Glucose Calcium NT-Pro-B Natriuret Pep 2300 H Total Protein Albumin Urine Blood SMALL H 02/15/19 01:55 Hct Sodium 125.5 L Potassium 3.5 L Chloride 94 L Glucose 403 H* Calcium 7.6 L NT-Pro-B Natriuret Pep Total Protein 5.2 L Albumin 2.8 L Urine Blood - Diagnostic Test Radiology reviewed: Image reviewed, Reports reviewed Radiology results interpreted by me: 02/15/19 03:18 Chest x-ray: No acute infiltrate or pneumothorax - EKG Interpretation by Me Additional EKG results interpreted by me: 02/15/19 03:18 Atrial fibrillation with rapid ventricular response, rate 1. No ST elevations or depressions. PACs present. QTC 468 Critical Care Note - Critical Care Note Total time excluding time spent on procedures (mins): 40 Comments: Critical care time spent obtaining history from patient or surrogate, discussions with consultants, development of treatment plan with patient or surrogate, evaluation of patient's response to treatment, examination of patient, ordering and performing treatments and interventions, ordering and review of laboratory studies, re-evaluation of patient's condition, ordering and review of radiographic studies and review of old charts Discharge - Discharge Clinical Impression: Decompensated COPD with exacerbation (chronic obstructive pulmonary disease), Chronic atrial fibrillation, Respiratory distress, Hyponatremia Alcohol intoxication Qualifiers: Complication of substance-induced condition: uncomplicated Qualified Code(s): F10.920 - Alcohol use, unspecified with intoxication, uncomplicated Condition: Fair Disposition: ADMITTED INPATIENT Admitting Provider: Janeth Unit Admitted: IMCU Referrals: STELLA NESBITT MD [Primary Care Provider] - Follow up as needed
[2019-02-15] MEDS: MAGNESIUM SULFATE/D5W 1 GM/100 ML RTUPB IV SCH ×2 (01:08→01:43)
[2019-02-15 01:42] LABS: VENOUS BLOOD BASE EXCESS 2.2 mmol/L; VENOUS BLOOD HCO3 29.4 mmol/L (20-32); VENOUS BLOOD PCO2 57.4 mmHg (35-63); VENOUS BLOOD PH 7.33 (7.30-7.42)
[2019-02-15 01:44] LABS: ABSOLUTE EOSINOPHILS # (AUTO) 0.2 10^3/uL (0.0-0.6); ABSOLUTE LYMPHOCYTES (AUTO) 2.3 10^3/uL (0.5-4.7); ABSOLUTE MONOCYTES (AUTO) 0.7 10^3/uL (0.1-1.4); ABSOLUTE NEUT (AUTO) 3.7 10^3/uL (1.7-8.2); BASOPHILS % (AUTO) 0.6 % (0-2); EOSINOPHILS % (AUTO) 2.3 % (0-6); HEMATOCRIT 35.8 % (36.0-47.0); HEMOGLOBIN 12.1 g/dL (12.0-15.5); LYMPHOCYTES % (AUTO) 33.3 % (13-45); MEAN CORPUSCULAR HEMOGLOBIN 30.8 pg (27.0-33.4); MEAN CORPUSCULAR HGB CONC 33.8 g/dL (32.0-36.0); MEAN CORPUSCULAR VOLUME 91 fl (80-97); MONOCYTES % (AUTO) 10.1 % (3-13); PLATELET COUNT 216 10^3/uL (150-450); RED BLOOD COUNT 3.93 10^6/uL (3.72-5.28); SEGMENTED NEUTROPHILS % (AUTO) 53.7 % (42-78); TOTAL CELLS COUNTED % (AUTO) 100 %; WHITE BLOOD COUNT 6.9 10^3/uL (4.0-10.5)
[2019-02-15 01:56] LABS: APPEARANCE,URINE CLEAR; BILIRUBIN,URINE NEGATIVE (NEGATIVE); COLOR,URINE STRAW; GLUCOSE, URINE NEGATIVE (NEGATIVE); KETONES,URINE NEGATIVE (NEGATIVE); LEUKOCYTE ESTERASE,URINE NEGATIVE (NEGATIVE); NITRITE,URINE NEGATIVE (NEGATIVE); PROTEIN,URINE NEGATIVE (NEGATIVE); URINE SPECIFIC GRAVITY 1.002; UROBILINOGEN,URINE NEGATIVE mg/dL (<2.0)
--- NOTE | 2019-02-15 02:10 | RADIOLOGY REPORT (SQ) ---
EXAM DESCRIPTION: XR CHEST 1 VIEW COMPLETED DATE/TME: 02/15/2019 01:00 CLINICAL HISTORY: 73 years, Female, sob COMPARISON: 07/08/2018 chest NUMBER OF VIEWS: 1 TECHNIQUE: Portable chest LIMITATIONS: None. FINDINGS: Heart size is normal. Osteopenia. Lungs clear. No pneumothorax IMPRESSION: No acute cardiopulmonary process copyright 2010 [employer]- All Rights Reserved
[2019-02-15 02:19] LABS: ALANINE AMINOTRANSFERASE 16 U/L (9-52); ALBUMIN 2.8 g/dL (3.5-5.0); ALKALINE PHOSPHATASE 102 U/L (38-126); ANION GAP 8 (5-19); ASPARTATE AMINO TRANSFERASE 15 U/L (14-36); BILIRUBIN,DIRECT 0.3 mg/dL (0.0-0.4); BILIRUBIN,TOTAL 0.5 mg/dL (0.2-1.3); BLOOD UREA NITROGEN 8 mg/dL (7-20); CALCIUM 7.6 mg/dL (8.4-10.2); CARBON DIOXIDE 24 mmol/L (22-30); CHLORIDE 94 mmol/L (98-107); POTASSIUM 3.5 mmol/L (3.6-5.0); SODIUM 125.5 mmol/L (137-145); TOTAL PROTEIN 5.2 g/dL (6.3-8.2)
[2019-02-15 02:29] LABS: GLUCOSE 403 mg/dL (75-110)
[2019-02-15 02:30] LABS: NT PRO BNP 2300 pg/mL (5-900)
[2019-02-15 02:31] LABS: TROPONIN I < 0.012 ng/mL
[2019-02-15] MEDS ORDERED: IPRATROPIUM/ALBUTEROL 0.5-2.5 MG/3 ML AMPUL NEB PRN (06:29)
--- NOTE | 2019-02-15 07:49 | EKG REPORT ---
SEVERITY:- ABNORMAL ECG - ATRIAL FIBRILLATION, V-RATE 88-107 PROBABLE ANTEROSEPTAL INFARCT, AGE INDETERM : Confirmed by: Jacky Arguelles MD 15-Feb-2019 07:47:50
[2019-02-15] MEDS: METHYLPREDNISOLONE INJ 125 MG/2 ML SDV IV SCH ×2 (10:06→17:55)
[2019-02-15] MEDS: IPRATROPIUM/ALBUTEROL 0.5-2.5 MG/3 ML AMPUL NEB PRN (15:49)
--- NOTE | 2019-02-15 17:59 | PDOC H&P ---
History of Present Illness Admission Date/PCP: 02/15/19 03:22 [facility] History of Present Illness: SOHA DORSEY is a 73 year old female patient known to my practice who presented to the ED via EMS with complain of difficulty with breathing. At the time of my bedside visit she was coherent enough to report that she woke up from her sleep with progressive difficulty with her breathing and noted palpitation in her chest. she denied any associated chest pain, diaphoresis, nausea or vomiting. She admitted to drinking a bottle of beer in the afternoon but denied any significant alcohol ingestion or abuse since her recent discharge from the hospital. Her initial evaluation in the ED was remarkable for tachypnea and tachycardia with respiratory distress. She was initially managed with BiPAP support, IV Solu Medrol and Magnesium as well as bronchodilators. Due to persistence of her difficulty with breathing despite several doses of bronchodilators, she was advised hospitalization. Her morbidities include COPD with nocturnal oxygen supplementation, chronic Atrial fibrillation, hypertension, congestive heart failure, GERD, Osteoarthritis, seizure disorder, anxiety, and longstanding alcohol abuse with recent closed left distal ulna and radial fracture. Past Medical History Cardiac Medical History: Reports: Atrial Fibrillation - chronic, Congestive Heart Failure - chronc diastolic type, Hypertension Denies: Coronary Artery Disease, Myocardial Infarction, Hyperlipidema, Peripheral Vascular Disease, Pulmonary Embolism, Heart Murmur Pulmonary Medical History: Reports: Bronchitis, Chronic Obstructive Pulmonary Disease (COPD) Denies: Asthma, Pneumonia, Respiratory Failure, Sleep Apnea, Tuberculosis Neurological Medical History: Reports: Seizures Endocrine Medical History: Denies: Hyperthyroidism, Hypothyroidism Renal/ Medical History: Denies: End Stage Renal Disease Malignancy Medical History: Denies: Lung Cancer GI Medical History: Reports: Gastroesophageal Reflux Disease, Hepatitis Denies: Crohn's Disease, Hiatal Hernia Musculoskeltal Medical History: Reports: Arthritis Denies: Fibromyalgia Psychiatric Medical History: Denies: Dementia, Depression, Post Traumatic Stress Disorder Comment Only: Bipolar Disorder - anxiety Hematology: Denies: Anemia, Sickle Cell Disease Past Surgical History Past Surgical History: Reports: Cholecystectomy Denies: Amputation, Appendectomy, Section, Colostomy, Coronary Artery Bypass Graft, Gastric Bypass Surgery, Herniorrhaphy, Hysterectomy, Mastectomy, Pacemaker, Tonsillectomy, Tubal Ligation Social History Lives with: Family Smoking Status: Current Every Day Smoker Cigarettes Packs Per Day: 1 Number of Years Smokin Last Time Smoked: 02/14/2019 Frequency of Alcohol Use: Heavy Hx Recreational Drug Use: No Drugs: None Hx Prescription Drug Abuse: No - Advance Directive Resuscitation Status: Full Code Family History Family History: Reviewed & Not Pertinent Parental Family History Reviewed: Yes Children Family History Reviewed: Yes Sibling(s) Family History Reviewed.: Yes Medication/Allergy Home Medications: Apixaban [Eliquis 5 mg Tablet] 5 mg PO BID 02/15/19 Clonazepam [Klonopin] 0.5 mg PO BID 02/15/19 Furosemide [Lasix 20 mg Tablet] 20 mg PO DAILY 02/15/19 Gabapentin [Neurontin] 800 mg PO TID 02/15/19 Haloperidol [Haldol 1 mg Tablet] 1 mg PO Q12 02/15/19 Magnesium Oxide [Mag-Ox 400 mg Tablet] 400 mg PO DAILY 02/15/19 Multivit-Min/Iron/Folic/Lutein [Centrum Silver Women Tablet] 1 tab PO DAILY 02/15/19 Multivitamin [Daily Multiple Vitamin] 1 tab PO DAILY 02/15/19 Roflumilast [Daliresp 500 mcg Tablet] 500 mcg PO DAILY 02/15/19 Thiamine HCl [Thiamine 100 mg Tablet] 100 mg PO DAILY 02/15/19 Tiotropium [place] [Spiriva Respimat] 1 puff IH Q12 02/15/19 Valsartan [Diovan 40 mg Tablet] 40 mg PO DAILY 02/15/19 Allergies/Adverse Reactions: adhesive tape [Adhesive Tape] Allergy (Severe, Verified 05/25/18 10:16) peels skin off ceftriaxone sodium [From Rocephin] Allergy (Severe, Verified 05/25/18 10:16) redness/itch lorazepam [From Ativan] Adverse Reaction (Severe, Verified 05/26/18 13:33) Hallucinations Review of Systems Constitutional: PRESENT: weakness. ABSENT: chills, fever(s), headache(s), weight gain, weight loss Eyes: PRESENT: visual disturbances Ears: PRESENT: hearing changes Nose, Mouth, and Throat: ABSENT: as per HPI, headache(s), mouth pain, sore throat, vertigo, other Cardiovascular: PRESENT: dyspnea on exertion, palpitations. ABSENT: as per HPI, chest pain, edema, orthropnea, other Respiratory: PRESENT: cough, dyspnea, sputum Gastrointestinal: ABSENT: abdominal pain, constipation, diarrhea, hematemesis, hematochezia, nausea, vomiting Genitourinary: ABSENT: dysuria, hematuria Musculoskeletal: PRESENT: deformity - related to multiple joints involvement with arthritis Integumentary: ABSENT: rash, wounds Neurological: PRESENT: confusion - intermittent occurence. ABSENT: abnormal gait, abnormal speech, dizziness, focal weakness, syncope Psychiatric: PRESENT: anxiety Endocrine: ABSENT: cold intolerance, heat intolerance, polydipsia, polyuria Hematologic/Lymphatic: ABSENT: easy bleeding, easy bruising, lymphadenopathy Allergic/Immunologic: ABSENT: seasonal rhinorrhea Physical Exam Vital Signs: Temp Pulse Resp BP Pulse Ox 97.6 F 111 H 26 H 173/73 H 100 02/15/19 16:18 02/15/19 16:18 02/15/19 16:18 02/15/19 16:18 02/15/19 16:18 Intake & Output 02/14/19 02/15/19 02/16/19 06:59 06:59 06:59 Intake Total 158 Balance 158 Weight 60.4 kg General appearance: PRESENT: mild distress - with BiPAP support Head exam: PRESENT: atraumatic, normocephalic Eye exam: PRESENT: conjunctiva pink. ABSENT: scleral icterus Ear exam: PRESENT: normal external ear exam Mouth exam: PRESENT: moist Neck exam: PRESENT: full ROM. ABSENT: carotid bruit, JVD, lymphadenopathy, thyromegaly Respiratory exam: PRESENT: decreased breath sounds - at lung bases, prolonged expiratory phas, rhonchi, wheezes Cardiovascular exam: PRESENT: +S1, +S2, tachycardia. ABSENT: diastolic murmur, systolic murmur Vascular exam: PRESENT: normal capillary refill, pallor GI/Abdominal exam: PRESENT: normal bowel sounds, soft. ABSENT: distended, gu arding, mass, organolmegaly, rebound, tenderness Rectal exam: PRESENT: deferred Extremities exam: ABSENT: pedal edema Musculoskeletal exam: PRESENT: deformity, other - left wrist cast in use Neurological exam: PRESENT: alert, awake, oriented to person, oriented to place, oriented to time, oriented to situation, CN II-XII grossly intact. ABSENT: motor sensory deficit Psychiatric exam: PRESENT: appropriate affect, normal mood. ABSENT: homicidal ideation, suicidal ideation Skin exam: PRESENT: dry, warm Results Laboratory Results: 02/15/19 01:27 02/15/19 01:55 02/15/19 02/15/19 02/15/19 01:21 01:27 01:27 WBC 6.9 RBC 3.93 Hgb 12.1 Hct 35.8 L MCV 91 MCH 30.8 MCHC 33.8 RDW 14.0 Plt Count 216 Seg Neutrophils % 53.7 Lymphocytes % 33.3 Monocytes % 10.1 Eosinophils % 2.3 Basophils % 0.6 Absolute Neutrophils 3.7 Absolute Lymphocytes 2.3 Absolute Monocytes 0.7 Absolute Eosinophils 0.2 Absolute Basophils 0.0 VBG pH VBG pCO2 VBG HCO3 VBG Base Excess Sodium Cancelled Potassium Cancelled Chloride Cancelled Carbon Dioxide Cancelled Anion Gap Cancelled BUN Cancelled Creatinine Cancelled Est GFR ( Amer) Cancelled Est GFR (Non-Af Amer) Cancelled Glucose Cancelled Calcium Cancelled Total Bilirubin Cancelled AST Cancelled ALT Cancelled Alkaline Phosphatase Cancelled Total Protein Cancelled Albumin Cancelled Urine Color STRAW Urine Appearance CLEAR Urine pH 7.0 Ur Specific [place] 1.002 Urine Protein NEGATIVE Urine Glucose (UA) NEGATIVE Urine Ketones NEGATIVE Urine Blood SMALL H Urine Nitrite NEGATIVE Ur Leukocyte Esterase NEGATIVE Urine WBC (Auto) 0 Urine RBC (Auto) 1 02/15/19 02/15/19 01:27 01:55 WBC RBC Hgb Hct MCV MCH MCHC RDW Plt Count Seg Neutrophils % Lymphocytes % Monocytes % Eosinophils % Basophils % Absolute Neutrophils Absolute Lymphocytes Absolute Monocytes Absolute Eosinophils Absolute Basophils VBG pH 7.33 VBG pCO2 57.4 VBG HCO3 29.4 VBG Base Excess 2.2 Sodium 125.5 L Potassium 3.5 L Chloride 94 L Carbon Dioxide 24 Anion Gap 8 BUN 8 Creatinine 0.68 Est GFR ( Amer) > 60 Est GFR (Non-Af Amer) > 60 Glucose 403 H* Calcium 7.6 L Total Bilirubin 0.5 AST 15 ALT 16 Alkaline Phosphatase 102 Total Protein 5.2 L Albumin 2.8 L Urine Color Urine Appearance Urine pH Ur Specific [place] Urine Protein Urine Glucose (UA) Urine Ketones Urine Blood Urine Nitrite Ur Leukocyte Esterase Urine WBC (Auto) Urine RBC (Auto) 02/15/19 02/15/19 01:27 01:55 Troponin I Cancelled < 0.012 NT-Pro-B Natriuret Pep Cancelled 2300 H Impressions: Chest X-Ray 02/15/19 01:00 IMPRESSION: No acute cardiopulmonary process copyright 2011 [facility] [employer]- All Rights Reserved Assessment & Plan - Diagnosis (1) Decompensated COPD with exacerbation (chronic obstructive pulmonary disease) Is this a current diagnosis for this admission?: Yes Plan: See admitting physician orders for details. (2) Chronic respiratory failure with hypercapnia Is this a current diagnosis for this admission?: Yes Plan: See admitting physician orders for details. (3) Chronic atrial fibrillation Is this a current diagnosis for this admission?: Yes Plan: See admitting physician orders for details. (4) Chronic diastolic CHF (congestive heart failure) Is this a current diagnosis for this admission?: Yes Plan: See admitting physician orders for details. (5) Hyponatremia Is this a current diagnosis for this admission?: Yes Plan: See admitting physician orders for details. (6) HTN (hypertension) Qualifiers: Hypertension type: essential hypertension Qualified Code(s): I10 - Essential (primary) hypertension Is this a current diagnosis for this admission?: Yes Plan: See admitting physician orders for details. (7) HLD (hyperlipidemia) Qualifiers: Hyperlipidemia type: pure hypercholesterolemia Qualified Code(s): E78.00 - Pure hypercholesterolemia, unspecified Is this a current diagnosis for this admission?: Yes Plan: See admitting physician orders for details. (8) GERD (gastroesophageal reflux disease) Qualifiers: Esophagitis presence: esophagitis presence not specified Qualified Code(s): K21.9 - Gastro-esophageal reflux disease without esophagitis Is this a current diagnosis for this admission?: Yes Plan: See admitting physician orders for details. (9) Closed fracture distal radius and ulna Qualifiers: Encounter type: initial encounter Laterality: left Qualified Code(s): S52.502A - Unspecified fracture of the lower end of left radius, initial encounter for closed fracture; S52.602A - Unspecified fracture of lower end of left ulna, initial encounter for closed fracture Is this a current diagnosis for this admission?: Yes Plan: See admitting physician orders for details. - Time Time Spent: 50 to 70 Minutes Medications reviewed and adjusted accordingly: Yes Anticipated discharge: Home with Homehealth Within: Other - Inpatient Certification Based on my medical assessment, after consideration of the patient's comorbidities, presenting symptoms, or acuity I expect that the services needed warrant INPATIENT care.: Yes I certify that my determination is in accordance with my understanding of Medicare's requirements for reasonable and necessary INPATIENT services [42 CFR 412.3e].: Yes Medical Necessity: Significant Comorbidiites Make Outpatient Treatment Too Risky, Need Close Monitoring Due to Risk of Patient Decompensation, Need For IV Fluids, Need For Continuous Telemetry Monitoring, Need for Nebulizer Therapy and Monitoring of Response, Risk of Complication if Not Cared For in Hospital, Risk of Diagnosis Which Will Require Inpatient Eval/Care/Monitoring Post Hospital Care: D/C Broadcast Supervisor Documentation - Plan Summary Plan Summary: See admitting attending physician orders for details. Disposition is back home with [facility] [employer] services when medically cleared.
[2019-02-15] MEDS: POTASSIUM CHLORIDE 10 MEQ CAPSULE.ER PO SCH ×2 (18:11→21:28)
[2019-02-15] MEDS: APIXABAN 5 MG TABLET PO SCH (18:12)
[2019-02-15] MEDS: DILTIAZEM HCL 30 MG TABLET PO SCH (18:12)
[2019-02-15] MEDS: GABAPENTIN 400 MG CAPSULE PO SCH (21:29)
[2019-02-16] MEDS: DILTIAZEM HCL 30 MG TABLET PO SCH ×4 (00:04→17:04)
[2019-02-16] MEDS: POTASSIUM CHLORIDE 10 MEQ CAPSULE.ER PO SCH (02:09)
[2019-02-16] MEDS: METHYLPREDNISOLONE INJ 125 MG/2 ML SDV IV SCH ×3 (02:10→17:05)
[2019-02-16] MEDS: GABAPENTIN 400 MG CAPSULE PO SCH ×3 (05:36→21:04)
[2019-02-16] MEDS: NORMAL SALINE 1000 ML 1,000 ML IV PRN (05:36)
[2019-02-16] MEDS: PANTOPRAZOLE SODIUM 40 MG TABLET.DR PO SCH (05:36)
[2019-02-16 06:02] LABS: ABSOLUTE LYMPHOCYTES (AUTO) 0.9 10^3/uL (0.5-4.7); ABSOLUTE MONOCYTES (AUTO) 0.2 10^3/uL (0.1-1.4); ABSOLUTE NEUT (AUTO) 11.9 10^3/uL (1.7-8.2); HEMATOCRIT 35.7 % (36.0-47.0); HEMOGLOBIN 12.1 g/dL (12.0-15.5); LYMPHOCYTES % (AUTO) 6.6 % (13-45); MEAN CORPUSCULAR HEMOGLOBIN 30.7 pg (27.0-33.4); MEAN CORPUSCULAR HGB CONC 33.9 g/dL (32.0-36.0); MEAN CORPUSCULAR VOLUME 91 fl (80-97); MONOCYTES % (AUTO) 1.7 % (3-13); PLATELET COUNT 210 10^3/uL (150-450); RED BLOOD COUNT 3.94 10^6/uL (3.72-5.28); SEGMENTED NEUTROPHILS % (AUTO) 91.7 % (42-78); TOTAL CELLS COUNTED % (AUTO) 100 %; WHITE BLOOD COUNT 12.9 10^3/uL (4.0-10.5)
[2019-02-16 06:24] LABS: ALANINE AMINOTRANSFERASE 16 U/L (9-52); ALBUMIN 3.4 g/dL (3.5-5.0); ALKALINE PHOSPHATASE 99 U/L (38-126); ANION GAP 8 (5-19); ASPARTATE AMINO TRANSFERASE 15 U/L (14-36); BILIRUBIN,DIRECT 0.3 mg/dL (0.0-0.4); BILIRUBIN,TOTAL 0.4 mg/dL (0.2-1.3); BLOOD UREA NITROGEN 11 mg/dL (7-20); CALCIUM 9.1 mg/dL (8.4-10.2); CARBON DIOXIDE 24 mmol/L (22-30); CHLORIDE 102 mmol/L (98-107); GLUCOSE 144 mg/dL (75-110); POTASSIUM 5.5 mmol/L (3.6-5.0); SODIUM 134.3 mmol/L (137-145); TOTAL PROTEIN 6.5 g/dL (6.3-8.2)
[2019-02-16] MEDS: ROFLUMILAST 500 MCG TABLET PO SCH (09:45)
[2019-02-16] MEDS: THIAMINE HCL 100 MG TABLET PO SCH (09:45)
[2019-02-16] MEDS: APIXABAN 5 MG TABLET PO SCH ×2 (09:45→17:04)
[2019-02-16] MEDS: MULTIVITAMIN TABLET PO SCH (09:45)
[2019-02-16] MEDS: MAGNESIUM OXIDE 400 MG TABLET PO SCH (09:45)
[2019-02-16] MEDS: TIOTROPIUM BROMIDE DPI 5 CAP/KIT (18 MCG/CAP) IH SCH ×2 (09:46→21:05)
[2019-02-16] MEDS ORDERED: (PENDING PHARMACY ID) (Roflumilast [Daliresp 500 Mcg Tablet] 500 MCG) PO SCH (10:00)
--- NOTE | 2019-02-16 18:14 | PDOC PROGRESS REPORT ---
Subjective Progress Note for:: 02/16/19 Subjective:: Patient was seen by the bedside, she was admitted for the management of severe COPD associated with respiratory failure, she was seen by the bedside, she continues to require noninvasive positive pressure ventilation on BiPAP Reason For Visit: DECOMPENSATED COPD EXACERBATION, CHRONIC A FIB Physical Exam Vital Signs: Temp Pulse Resp BP Pulse Ox 97.4 F 71 19 144/62 H 100 02/16/19 16:28 02/16/19 16:28 02/16/19 16:28 02/16/19 16:28 02/16/19 16:28 Intake & Output 02/15/19 02/16/19 02/17/19 06:59 06:59 06:59 Intake Total 158 672 932 Output Total 650 900 Balance 158 22 32 Weight 60.4 kg 62.2 kg General appearance: PRESENT: other - Patient is alert on noninvasive positive pressure ventilation, BiPAP Respiratory exam: PRESENT: wheezes Cardiovascular exam: PRESENT: +S1, +S2 GI/Abdominal exam: PRESENT: soft Neurological exam: PRESENT: alert Results Laboratory Results: 02/16/19 05:36 02/16/19 05:36 02/16/19 02/16/19 05:36 05:36 WBC 12.9 H RBC 3.94 Hgb 12.1 Hct 35.7 L MCV 91 MCH 30.7 MCHC 33.9 RDW 14.0 Plt Count 210 Seg Neutrophils % 91.7 H Lymphocytes % 6.6 L Monocytes % 1.7 L Eosinophils % 0.0 Basophils % 0.0 Absolute Neutrophils 11.9 H Absolute Lymphocytes 0.9 Absolute Monocytes 0.2 Absolute Eosinophils 0.0 Absolute Basophils 0.0 Sodium 134.3 L Potassium 5.5 H Chloride 102 Carbon Dioxide 24 Anion Gap 8 BUN 11 Creatinine 0.65 Est GFR ( Amer) > 60 Est GFR (Non-Af Amer) > 60 Glucose 144 H Calcium 9.1 Total Bilirubin 0.4 AST 15 ALT 16 Alkaline Phosphatase 99 Total Protein 6.5 Albumin 3.4 L 02/15/19 02/15/19 01:27 01:55 Troponin I Cancelled < 0.012 NT-Pro-B Natriuret Pep Cancelled 2300 H Impressions: Chest X-Ray 02/15/19 01:00 IMPRESSION: No acute cardiopulmonary process copyright 2011 [employer]- All Rights Reserved Assessment & Plan - Diagnosis (1) COPD with acute exacerbation Is this a current diagnosis for this admission?: Yes Plan: She will continue present treatment regimen (2) Acute respiratory failure with hypercapnia Is this a current diagnosis for this admission?: Yes Plan: Continue noninvasive positive pressure ventilation
[2019-02-17] MEDS: DILTIAZEM HCL 30 MG TABLET PO SCH ×4 (01:00→17:07)
[2019-02-17] MEDS: METHYLPREDNISOLONE INJ 125 MG/2 ML SDV IV SCH ×3 (02:12→17:01)
[2019-02-17] MEDS: GABAPENTIN 400 MG CAPSULE PO SCH ×3 (05:29→21:16)
[2019-02-17] MEDS: PANTOPRAZOLE SODIUM 40 MG TABLET.DR PO SCH (05:30)
[2019-02-17] MEDS: IPRATROPIUM/ALBUTEROL 0.5-2.5 MG/3 ML AMPUL NEB PRN (05:55)
[2019-02-17] MEDS: MAGNESIUM OXIDE 400 MG TABLET PO SCH (09:18)
[2019-02-17] MEDS: THIAMINE HCL 100 MG TABLET PO SCH (09:18)
[2019-02-17] MEDS: APIXABAN 5 MG TABLET PO SCH ×2 (09:18→17:07)
[2019-02-17] MEDS: ROFLUMILAST 500 MCG TABLET PO SCH (09:19)
[2019-02-17] MEDS: MULTIVITAMIN TABLET PO SCH (09:19)
[2019-02-17] MEDS: TIOTROPIUM BROMIDE DPI 5 CAP/KIT (18 MCG/CAP) IH SCH ×2 (09:20→21:16)
[2019-02-17 09:38] LABS: ARTERIAL BLOOD BASE EXCESS 0 mmol/L; ARTERIAL BLOOD FIO2 30%; ARTERIAL BLOOD H2CO3 1.13 mmol/L (1.05-1.35); ARTERIAL BLOOD HCO3 24.1 mmol/L (20-24); ARTERIAL BLOOD O2 SATURATION 98.8 % (94-98); ARTERIAL BLOOD PCO2 37.7 mmHg (35-45); ARTERIAL BLOOD PH 7.42 (7.35-7.45); ARTERIAL BLOOD PO2 138.1 mmHg (80-100); ARTERIAL BLOOD TOTAL CO2 25.3 mmol/L (21-25)
--- NOTE | 2019-02-17 19:30 | PDOC PROGRESS REPORT ---
Subjective Progress Note for:: 02/17/19 Subjective:: Patient was seen by the bedside, she is somewhat confused, presently on IV Solu- Medrol, on auscultation of the chest she has no more wheezes, the Solu-Medrol will be discontinued, it as a potential to cause confusion.She is asking to use a walker to go out to smoke Reason For Visit: DECOMPENSATED COPD EXACERBATION, CHRONIC A FIB Physical Exam Vital Signs: Temp Pulse Resp BP Pulse Ox 97.3 F 73 19 151/67 H 100 02/17/19 16:50 02/17/19 16:50 02/17/19 16:50 02/17/19 16:50 02/17/19 16:50 Intake & Output 02/16/19 02/17/19 02/18/19 06:59 06:59 06:59 Intake Total 672 1082 887 Output Total 650 900 Balance 22 182 887 Weight 62.2 kg Head exam: PRESENT: atraumatic, normocephalic Eye exam: PRESENT: PERRLA Neck exam: PRESENT: full ROM Respiratory exam: PRESENT: rhonchi Cardiovascular exam: PRESENT: RRR, +S1, +S2 Vascular exam: PRESENT: normal capillary refill GI/Abdominal exam: PRESENT: normal bowel sounds, soft Rectal exam: PRESENT: deferred Neurological exam: PRESENT: alert, CN II-XII grossly intact Skin exam: PRESENT: dry, intact, warm Results Laboratory Results: 02/16/19 05:36 02/16/19 05:36 02/17/19 08:55 Carbonic Acid 1.13 HCO3/H2CO3 Ratio 21:1 ABG pH 7.42 ABG pCO2 37.7 ABG pO2 138.1 H ABG HCO3 24.1 H ABG O2 Saturation 98.8 H ABG Base Excess 0 FiO2 30% 02/15/19 02/15/19 01:27 01:55 Troponin I Cancelled < 0.012 NT-Pro-B Natriuret Pep Cancelled 2300 H Impressions: Chest X-Ray 02/15/19 01:00 IMPRESSION: No acute cardiopulmonary process copyright 2011 [employer]- All Rights Reserved Assessment & Plan - Diagnosis (1) COPD with acute exacerbation Is this a current diagnosis for this admission?: Yes Plan: Discontinue intravenous Solu-Medrol, start prednisone 40 mg p.o. daily (2) Acute respiratory failure with hypercapnia Is this a current diagnosis for this admission?: Yes
[2019-02-17] MEDS: NORMAL SALINE 1000 ML 1,000 ML IV PRN (20:51)
[2019-02-18] MEDS: DILTIAZEM HCL 30 MG TABLET PO SCH ×5 (00:05→23:38)
[2019-02-18] MEDS: NORMAL SALINE 1000 ML 1,000 ML IV PRN ×2 (05:15→17:00)
[2019-02-18] MEDS: PANTOPRAZOLE SODIUM 40 MG TABLET.DR PO SCH (05:24)
[2019-02-18] MEDS: GABAPENTIN 400 MG CAPSULE PO SCH ×3 (05:24→21:47)
--- NOTE | 2019-02-18 08:33 | PDOC PROGRESS REPORT ---
Subjective Progress Note for:: 02/18/19 Subjective:: No chest pain. Breathing is improving. No reported fever or chills. No abdominal pain, nausea, or vomiting. Reason For Visit: DECOMPENSATED COPD EXACERBATION, CHRONIC A FIB Physical Exam Vital Signs: Temp Pulse Resp BP Pulse Ox 97.2 F 85 20 145/75 H 100 02/18/19 04:12 02/18/19 07:00 02/18/19 04:12 02/18/19 04:12 02/18/19 04:12 Intake & Output 02/17/19 02/18/19 02/19/19 06:59 06:59 06:59 Intake Total 2082 1517 Output Total 900 Balance 1182 1517 Weight 64.9 kg General appearance: PRESENT: no acute distress Head exam: PRESENT: atraumatic, normocephalic Eye exam: PRESENT: conjunctiva pink. ABSENT: scleral icterus Ear exam: PRESENT: normal external ear exam Mouth exam: PRESENT: moist Respiratory exam: PRESENT: decreased breath sounds, rhonchi Cardiovascular exam: PRESENT: RRR. ABSENT: diastolic murmur, rubs, systolic murmur Vascular exam: ABSENT: pallor GI/Abdominal exam: PRESENT: normal bowel sounds, soft. ABSENT: distended, guarding, mass, organolmegaly, rebound, tenderness Extremities exam: ABSENT: pedal edema Neurological exam: PRESENT: alert, awake, oriented to person, oriented to place, oriented to time, oriented to situation, CN II-XII grossly intact. ABSENT: motor sensory deficit Psychiatric exam: PRESENT: appropriate affect, normal mood. ABSENT: homicidal ideation, suicidal ideation Skin exam: PRESENT: dry, warm Results Laboratory Results: 02/16/19 05:36 02/16/19 05:36 02/17/19 08:55 Carbonic Acid 1.13 HCO3/H2CO3 Ratio 21:1 ABG pH 7.42 ABG pCO2 37.7 ABG pO2 138.1 H ABG HCO3 24.1 H ABG O2 Saturation 98.8 H ABG Base Excess 0 FiO2 30% 02/15/19 02/15/19 01:27 01:55 Troponin I Cancelled < 0.012 NT-Pro-B Natriuret Pep Cancelled 2300 H Impressions: Chest X-Ray 02/15/19 01:00 IMPRESSION: No acute cardiopulmonary process copyright 2011 [employer]- All Rights Reserved Assessment & Plan - Diagnosis (1) Decompensated COPD with exacerbation (chronic obstructive pulmonary disease) Is this a current diagnosis for this admission?: Yes (2) Chronic respiratory failure with hypercapnia Is this a current diagnosis for this admission?: Yes (3) Chronic atrial fibrillation Is this a current diagnosis for this admission?: Yes (4) Chronic diastolic CHF (congestive heart failure) Is this a current diagnosis for this admission?: Yes (5) Hyponatremia Is this a current diagnosis for this admission?: Yes (6) HTN (hypertension) Qualifiers: Hypertension type: essential hypertension Qualified Code(s): I10 - Essential (primary) hypertension Is this a current diagnosis for this admission?: Yes (7) HLD (hyperlipidemia) Qualifiers: Hyperlipidemia type: pure hypercholesterolemia Qualified Code(s): E78.00 - Pure hypercholesterolemia, unspecified Is this a current diagnosis for this admission?: Yes (8) GERD (gastroesophageal reflux disease) Qualifiers: Esophagitis presence: esophagitis presence not specified Qualified Code(s): K21.9 - Gastro-esophageal reflux disease without esophagitis Is this a current diagnosis for this admission?: Yes (9) Closed fracture distal radius and ulna Qualifiers: Encounter type: initial encounter Laterality: left Qualified Code(s): S52.502A - Unspecified fracture of the lower end of left radius, initial encounter for closed fracture; S52.602A - Unspecified fracture of lower end of left ulna, initial encounter for closed fracture Is this a current diagnosis for this admission?: Yes - Time Time Spent with patient: 25-34 minutes Medications reviewed and adjusted accordingly: Yes Anticipated discharge: Home with Homehealth Within: Other - Inpatient Certification Based on my medical assessment, after consideration of the patient's comorbidities, presenting symptoms, or acuity I expect that the services needed warrant INPATIENT care.: Yes I certify that my determination is in accordance with my understanding of [facility]'s requirements for reasonable and necessary INPATIENT services [42 CFR 412.3e].: Yes Medical Necessity: Significant Comorbidiites Make Outpatient Treatment Too Risky, Need Close Monitoring Due to Risk of Patient Decompensation, Risk of Complication if Not Cared For in Hospital, Risk of Diagnosis Which Will Require Inpatient Eval/Care/Monitoring Post Hospital Care: D/C Composition Floor Setter Documentation - Plan Summary Plan Summary: Continue current medication management. decrease Prednisone to 20 mg po daily. Start on Trelegy 1 puff po daily.
[2019-02-18] MEDS: THIAMINE HCL 100 MG TABLET PO SCH (09:41)
[2019-02-18] MEDS: MULTIVITAMIN TABLET PO SCH (09:42)
[2019-02-18] MEDS: TIOTROPIUM BROMIDE DPI 5 CAP/KIT (18 MCG/CAP) IH SCH ×2 (09:42→21:47)
[2019-02-18] MEDS: MAGNESIUM OXIDE 400 MG TABLET PO SCH (09:42)
[2019-02-18] MEDS: ROFLUMILAST 500 MCG TABLET PO SCH (09:42)
[2019-02-18] MEDS: APIXABAN 5 MG TABLET PO SCH ×2 (09:42→16:59)
[2019-02-18] MEDS ORDERED: FLUTICASONE/UMECLIDIN/VILANTER 100-62.5-25 MCG/DOSE IH SCH (10:00)
[2019-02-18] MEDS ORDERED: PREDNISONE 20 MG TABLET PO SCH ×2 (10:00)
[2019-02-19] MEDS: PANTOPRAZOLE SODIUM 40 MG TABLET.DR PO SCH (05:04)
[2019-02-19] MEDS: GABAPENTIN 400 MG CAPSULE PO SCH (05:04)
[2019-02-19] MEDS: DILTIAZEM HCL 30 MG TABLET PO SCH (05:04)
[2019-02-19 05:46] LABS: ABSOLUTE LYMPHOCYTES (AUTO) 1.6 10^3/uL (0.5-4.7); ABSOLUTE MONOCYTES (AUTO) 1.2 10^3/uL (0.1-1.4); BASOPHILS % (AUTO) 0.1 % (0-2); EOSINOPHILS % (AUTO) 0.1 % (0-6); HEMATOCRIT 37.1 % (36.0-47.0); HEMOGLOBIN 12.5 g/dL (12.0-15.5); MEAN CORPUSCULAR HEMOGLOBIN 30.9 pg (27.0-33.4); MEAN CORPUSCULAR HGB CONC 33.8 g/dL (32.0-36.0); MEAN CORPUSCULAR VOLUME 92 fl (80-97); MONOCYTES % (AUTO) 11.8 % (3-13); PLATELET COUNT 215 10^3/uL (150-450); RED BLOOD COUNT 4.05 10^6/uL (3.72-5.28); RED CELL DISTRIBUTION WIDTH 14.4 % (11.5-14.0); TOTAL CELLS COUNTED % (AUTO) 100 %; WHITE BLOOD COUNT 9.8 10^3/uL (4.0-10.5)
[2019-02-19 06:20] LABS: ALANINE AMINOTRANSFERASE 23 U/L (9-52); ALBUMIN 3.1 g/dL (3.5-5.0); ALKALINE PHOSPHATASE 70 U/L (38-126); ANION GAP 6 (5-19); ASPARTATE AMINO TRANSFERASE 33 U/L (14-36); BILIRUBIN,DIRECT 0.2 mg/dL (0.0-0.4); BILIRUBIN,TOTAL 0.5 mg/dL (0.2-1.3); BLOOD UREA NITROGEN 18 mg/dL (7-20); CALCIUM 8.7 mg/dL (8.4-10.2); CARBON DIOXIDE 25 mmol/L (22-30); CHLORIDE 104 mmol/L (98-107); GLUCOSE 99 mg/dL (75-110); POTASSIUM 3.7 mmol/L (3.6-5.0); SODIUM 134.9 mmol/L (137-145); TOTAL PROTEIN 5.8 g/dL (6.3-8.2)
--- NOTE | 2019-02-19 08:24 | PDOC DISCHARGE SUMMARY ---
General - Admit/Disc Date/PCP Admission Date/Primary Care Provider: 02/15/19 03:22 STELLA NESBITT Discharge Date: 02/19/19 - Discharge Diagnosis (1) Decompensated COPD with exacerbation (chronic obstructive pulmonary disease) Is this a current diagnosis for this admission?: Yes (2) Chronic respiratory failure with hypercapnia Is this a current diagnosis for this admission?: Yes (3) Chronic atrial fibrillation Is this a current diagnosis for this admission?: Yes (4) Chronic diastolic CHF (congestive heart failure) Is this a current diagnosis for this admission?: Yes (5) Hyponatremia Is this a current diagnosis for this admission?: Yes (6) HTN (hypertension) Is this a current diagnosis for this admission?: Yes (7) HLD (hyperlipidemia) Is this a current diagnosis for this admission?: Yes (8) GERD (gastroesophageal reflux disease) Is this a current diagnosis for this admission?: Yes (9) Closed fracture distal radius and ulna Is this a current diagnosis for this admission?: Yes - Additional Information Resuscitation Status: Full Code Prescriptions: Fluticasone/Umeclidin/Vilanter [Trelegy 100-62.5-25 Mcg Ellipta 14 Dose/Dpi] 1 inh IH DAILY #1 inhaler Ipratropium/Albuterol Sulfate [Combivent Respimat 4 gm Mdi] 1 puff IH Q6 #1 aer.w.adap Prednisone [Deltasone 5 mg Tablet] 5 mg PO ASDIR PRN #15 tablet PRN Reason: Home Medications: Apixaban [Eliquis 5 mg Tablet] 5 mg PO BID 02/15/19 Clonazepam [Klonopin] 0.5 mg PO BID 02/15/19 Furosemide [Lasix 20 mg Tablet] 20 mg PO DAILY 02/15/19 Gabapentin [Neurontin] 800 mg PO TID 02/15/19 Magnesium Oxide [Mag-Ox 400 mg Tablet] 400 mg PO DAILY 02/15/19 Multivit-Min/Iron/Folic/Lutein [Centrum Silver Women Tablet] 1 tab PO DAILY 02/15/19 Multivitamin [Daily Multiple Vitamin] 1 tab PO DAILY 02/15/19 Roflumilast [Daliresp 500 mcg Tablet] 500 mcg PO DAILY 02/15/19 Thiamine HCl [Thiamine 100 mg Tablet] 100 mg PO DAILY 02/15/19 Tiotropium [place] [Spiriva Respimat] 1 puff IH Q12 02/15/19 Valsartan [Diovan 40 mg Tablet] 40 mg PO DAILY 02/15/19 Fluticasone/Umeclidin/Vilanter [Trelegy 100-62.5-25 Mcg Ellipta 14 Dose/Dpi] 1 inh IH DAILY #1 inhaler 02/19/19 Ipratropium/Albuterol Sulfate [Combivent Respimat 4 gm Mdi] 1 puff IH Q6 #1 aer.w.adap 02/19/19 Prednisone [Deltasone 5 mg Tablet] 5 mg PO ASDIR PRN #15 tablet 02/19/19 History of Present Illness Patient complains of: Difficulty with breathing History of Present Illness: SOHA DORSEY is a 73 year old female patient known to my practice who presented to the ED via EMS with complain of difficulty with breathing. At the time of my bedside visit she was coherent enough to report that she woke up from her sleep with progressive difficulty with her breathing and noted palpitation in her chest. she denied any associated chest pain, diaphoresis, nausea or vomiting. She admitted to drinking a bottle of beer in the afternoon but denied any significant alcohol ingestion or abuse since her recent discharge from the hospital. Her initial evaluation in the ED was remarkable for tachypnea and tachycardia with respiratory distress. She was initially managed with BiPAP support, IV Solu Medrol and Magnesium as well as bronchodilators. Due to persistence of her difficulty with breathing despite several doses of bronchodilators, she was advised hospitalization. Her morbidities include COPD with nocturnal oxygen supplementation, chronic Atrial fibrillation, hypertension, congestive heart failure, Gastroesophageal reflux disease, Osteoarthritis, seizure disorder, anxiety, and longstanding alcohol abuse with recent closed left distal ulna and radial fracture. Hospital Course Hospital Course: Patient was admitted for worsening difficulty with breathing as a case of exacerbated COPD. She responded to initial BiPAP support, bronchodilators and IV Solu Medrol therapy. she was eventually transition to supplemental oxygen via nasal cannula and oral Prednisone. She has been stable on Trelegy inhaler and tapering dose of Prednisone along with her preadmission medications. I had extensive discussion and counseling with her during this hospitalization regarding smoking cessation and alcohol abuse on several occasions during bedside visits. She will be discharged home today with follow up appointments as instructed upon discharge. Physical Exam Vital Signs: Temp Pulse Resp BP Pulse Ox 98.1 F 72 18 121/59 L 100 02/19/19 04:00 02/19/19 07:00 02/19/19 04:00 02/19/19 04:00 02/19/19 04:00 Intake & Output 02/18/19 02/19/19 02/20/19 06:59 06:59 06:59 Intake Total 1517 1199 Balance 1517 1199 Weight 64.9 kg 64.9 kg Physical Exam: General appearance: PRESENT: no acute distress Head exam: PRESENT: atraumatic, normocephalic Eye exam: PRESENT: conjunctiva pink. ABSENT: pallor, scleral icterus Ear exam: PRESENT: normal external ear exam Mouth exam: PRESENT: moist Respiratory exam: PRESENT: decreased breath sounds, end expiratory phase minimal rhonchi Cardiovascular exam: PRESENT: RRR. ABSENT: diastolic murmur, rubs, systolic murmur GI/Abdominal exam: PRESENT: normal bowel sounds, soft. ABSENT: distended, guarding, mass, organomegaly, rebound, tenderness Extremities exam: ABSENT: pedal edema Neurological exam: PRESENT: alert, awake, oriented to person, oriented to place, oriented to time, oriented to situation, CN II-XII grossly intact. ABSENT: motor sensory deficit Psychiatric exam: PRESENT: appropriate affect, normal mood. ABSENT: homicidal ideation, suicidal ideation Skin exam: PRESENT: dry, warm Results Laboratory Results: 02/19/19 04:54 02/19/19 04:54 02/19/19 02/19/19 04:54 04:54 WBC 9.8 RBC 4.05 Hgb 12.5 Hct 37.1 MCV 92 MCH 30.9 MCHC 33.8 RDW 14.4 H Plt Count 215 Seg Neutrophils % 72.0 Lymphocytes % 16.0 Monocytes % 11.8 Eosinophils % 0.1 Basophils % 0.1 Absolute Neutrophils 7.0 Absolute Lymphocytes 1.6 Absolute Monocytes 1.2 Absolute Eosinophils 0.0 Absolute Basophils 0.0 Sodium 134.9 L Potassium 3.7 Chloride 104 Carbon Dioxide 25 Anion Gap 6 BUN 18 Creatinine 0.65 Est GFR ( Amer) > 60 Est GFR (Non-Af Amer) > 60 Glucose 99 Calcium 8.7 Total Bilirubin 0.5 AST 33 ALT 23 Alkaline Phosphatase 70 Total Protein 5.8 L Albumin 3.1 L 02/15/19 02/15/19 01:27 01:55 Troponin I Cancelled < 0.012 NT-Pro-B Natriuret Pep Cancelled 2300 H Impressions: Chest X-Ray 02/15/19 01:00 IMPRESSION: No acute cardiopulmonary process copyright 2011 [employer]- All Rights Reserved Qualifiers - * PATIENT BEING DISCHARGED WITH ANY OF THE FOLLOWING DIAGNOSIS: No Plan Discharge Plan: D/C home with homehealth agency services to include visiting nurse and physical therapy.
[2019-02-19 08:47] VITALS: BP 151/79
== END 2019-02-19 09:10 | disposition home or self-care (01) | DRG 190 ==
LOC: ER 00:54 → EH 03:22 → 3W 05:05
PROVIDERS: ADMIT Internal Medicine Geriatric Medicine; ATTEND Internal Medicine Geriatric Medicine
PROC: 5A09457 Assistance with Respiratory Ventilation, 24-96 Consecutive Hours, Continuous Positive Airway Pressure (ICD-10-PCS; principal; 2019-02-15)
DX: J44.1 Chronic obstructive pulmonary disease with (acute) exacerbation (principal); J96.02 Acute respiratory failure with hypercapnia; S52.502A Unspecified fracture of the lower end of left radius, initial encounter for closed fracture; S52.602A Unspecified fracture of lower end of left ulna, initial encounter for closed fracture; E87.1 Hypo-osmolality and hyponatremia; I50.32 Chronic diastolic (congestive) heart failure; I48.2 Chronic atrial fibrillation; K21.9 Gastro-esophageal reflux disease without esophagitis; M19.90 Unspecified osteoarthritis, unspecified site; G40.909 Epilepsy, unspecified, not intractable, without status epilepticus; I11.0 Hypertensive heart disease with heart failure; F41.9 Anxiety disorder, unspecified; F17.200 Nicotine dependence, unspecified, uncomplicated; E78.00 Pure hypercholesterolemia, unspecified; F10.920 Alcohol use, unspecified with intoxication, uncomplicated; W19.XXXA Unspecified fall, initial encounter; Z79.899 Other long term (current) drug therapy; Z90.49 Acquired absence of other specified parts of digestive tract; Z88.1 Allergy status to other antibiotic agents; Z88.8 Allergy status to other drugs, medicaments and biological substances; Z99.81 Dependence on supplemental oxygen
CPT/HCPCS: 36415; 36600; 71045; 80053; 80307; 81001; 82803; 83880; 84484; 85025; 93005; 93010; 94640; 94660; 96365; 96366; 96375; 99291; J2930; J3475; J3490; J7030; J7512; J7620

== ENCOUNTER 2019-08-31 13:29 | Emergency (ER) | payer MEDICARE, OTHER ==
--- NOTE | 2019-08-31 13:49 | ER Document Report ---
ED Medical Screen (RME) - General Chief Complaint: Cough Stated Complaint: COUGH,CONGESTION,SHORT OF BREATH Time Seen by Provider: 08/31/19 13:44 Primary Care Provider: STELLA NESBITT MD [Primary Care Provider] - Follow up as needed Mode of Arrival: Wheelchair Information source: Patient Notes: 74-year-old female presented to ED for coughing with a lot of mucus expectorant. She states today she had some specks of red blood in the mucus. She states she is always coughs because she is a smoker. She states she has COPD and is bad cough started about a week ago. She states she does not know of any fevers. She states she does not smoke a lot now especially since she is been at the hospital with her son. She states she had been smoking a pack a day. She states her son is in [place] for heart attack and now he is having machines for him. She states she thinks that is why her blood pressure so high. I have greeted and performed a rapid initial assessment of this patient. A comprehensive ED assessment and evaluation of the patient, analysis of test results and completion of medical decision making process will be conducted by an additional ED providers. TRAVEL OUTSIDE OF THE [place] IN LAST 30 DAYS: No - Related Data Allergies/Adverse Reactions: adhesive tape [Adhesive Tape] Allergy (Severe, Verified 05/25/18 10:16) peels skin off ceftriaxone sodium [From Rocephin] Allergy (Severe, Verified 05/25/18 10:16) redness/itch lorazepam [From Ativan] Adverse Reaction (Severe, Verified 05/26/18 13:33) Hallucinations Past Medical History - Past Medical History Cardiac Medical History: Reports: Hx Atrial Fibrillation - chronic, Hx Congestive Heart Failure - chronc diastolic type, Hx Hypertension Denies: Hx Coronary Artery Disease, Hx Heart Attack, Hx Hypercholesterolemia, Hx Peripheral Vascular Disease, Hx Pulmonary Embolism, Hx Heart Murmur Pulmonary Medical History: Reports: Hx Bronchitis, Hx COPD Denies: Hx Asthma, Hx Pneumonia, Hx Respiratory Failure, Hx Sleep Apnea, Hx Tuberculosis Neurological Medical History: Reports: Hx Seizures. Denies: Hx Cerebrovascular Accident, Hx Parkinson's Disease Endocrine Medical History: Denies: Hx Graves' Disease, Hx Hyperthyroidism, Hx Hypothyroidism Renal/ Medical History: Denies: Hx End Stage Renal Disease, Hx Kidney Stones, Hx Peritoneal Dialysis Malignancy Medical History: Denies: Hx Lung Cancer GI Medical History: Reports: Hx Gastroesophageal Reflux Disease, Hx Hepatitis, Hx Ulcer. Denies: Hx Crohn's Disease, Hx Hiatal Hernia, Hx Irritable Bowel, Hx Liver Failure, Hx Pancreatitis Musculoskeltal Medical History: Reports Hx Arthritis, Denies Hx Fibromyalgia, Denies Hx Multiple Sclerosis, Denies Hx Muscular Dystrophy, Denies Hx Systemic Lupus Erythematosus Psychiatric Medical History: Reports: Hx Anxiety Denies: Hx Dementia, Hx Depression, Hx Post Traumatic Stress Disorder, Hx Schizophrenia Comment Only: Hx Bipolar Disorder - anxiety Traumatic Medical History: Denies: Hx Fractures Infectious Medical History: Reports: Hx Hepatitis Past Surgical History: Reports: Hx Cholecystectomy. Denies: Hx Appendectomy, Hx Bowel Surgery, Hx Section, Hx Colostomy, Hx Coronary Artery Bypass Graft, Hx Gastric Bypass Surgery, Hx Herniorrhaphy, Hx Hysterectomy, Hx Mastectomy, Hx Open Heart Surgery, Hx Pacemaker, Hx Tonsillectomy, Hx Tubal Ligation - Immunizations Immunizations up to date: Yes Hx Diphtheria, Pertussis, Tetanus Vaccination: No Physical Exam - Vital signs Vitals: Temp Pulse Resp BP Pulse Ox 97.8 F 117 H 28 H 167/68 H 95 08/31/19 13:34 08/31/19 13:34 08/31/19 13:34 08/31/19 13:34 08/31/19 13:34 Course - Vital Signs Vital signs: Temp Pulse Resp BP Pulse Ox 97.8 F 117 H 28 H 167/68 H 95 08/31/19 13:34 08/31/19 13:34 08/31/19 13:34 08/31/19 13:34 08/31/19 13:34 Doctor's Discharge - Discharge Referrals: STELLA NESBITT MD [Primary Care Provider] - Follow up as needed
[2019-08-31 14:17] LABS: ABSOLUTE BASOPHILS # (AUTO) 0.1 10^3/uL (0.0-0.2); ABSOLUTE EOSINOPHILS # (AUTO) 0.1 10^3/uL (0.0-0.6); ABSOLUTE LYMPHOCYTES (AUTO) 1.7 10^3/uL (0.5-4.7); ABSOLUTE MONOCYTES (AUTO) 0.8 10^3/uL (0.1-1.4); ABSOLUTE NEUT (AUTO) 8.7 10^3/uL (1.7-8.2); BASOPHILS % (AUTO) 0.5 % (0-2); EOSINOPHILS % (AUTO) 1.1 % (0-6); HEMATOCRIT 35.9 % (36.0-47.0); HEMOGLOBIN 11.9 g/dL (12.0-15.5); LYMPHOCYTES % (AUTO) 14.8 % (13-45); MEAN CORPUSCULAR HEMOGLOBIN 27.1 pg (27.0-33.4); MEAN CORPUSCULAR HGB CONC 33.2 g/dL (32.0-36.0); MEAN CORPUSCULAR VOLUME 82 fl (80-97); MONOCYTES % (AUTO) 7.3 % (3-13); PLATELET COUNT 255 10^3/uL (150-450); RED BLOOD COUNT 4.39 10^6/uL (3.72-5.28); SEGMENTED NEUTROPHILS % (AUTO) 76.3 % (42-78); TOTAL CELLS COUNTED % (AUTO) 100 %; WHITE BLOOD COUNT 11.4 10^3/uL (4.0-10.5)
[2019-08-31 14:35] LABS: ALKALINE PHOSPHATASE 140 U/L (38-126); ANION GAP 10 (5-19); ASPARTATE AMINO TRANSFERASE 23 U/L (14-36); BILIRUBIN,DIRECT 0.1 mg/dL (0.0-0.4); BILIRUBIN,TOTAL 0.6 mg/dL (0.2-1.3); BLOOD UREA NITROGEN 11 mg/dL (7-20); CALCIUM 8.9 mg/dL (8.4-10.2); CARBON DIOXIDE 27 mmol/L (22-30); CHLORIDE 97 mmol/L (98-107); GLUCOSE 88 mg/dL (75-110); POTASSIUM 3.8 mmol/L (3.6-5.0); TOTAL PROTEIN 7.1 g/dL (6.3-8.2)
--- NOTE | 2019-08-31 14:47 | RADIOLOGY REPORT (SQ) ---
EXAM DESCRIPTION: CHEST 2 VIEWS COMPLETED DATE/TIME: 08/31/2019 2:23 pm REASON FOR STUDY: cough congestion COMPARISON: 02/15/2019. NUMBER OF VIEWS: Two view. TECHNIQUE: Frontal and lateral radiographic views of the chest acquired. LIMITATIONS: None. FINDINGS: LUNGS AND PLEURA: Mild interstitial prominence. Faint density in the right costophrenic a ngle. No masses or pneumothorax. No pleural effusion. Attenuated blood vessels and flattened cheryl-di aphragms. MEDIASTINUM AND HILAR STRUCTURES: No masses. No contour abnormalities. HEART AND VASCULAR STRUCTURES: Heart normal in size and contour. No evidence for failure. BONES: Healing fracture of the right 5th rib. HARDWARE: None in the chest. OTHER: No other significant finding. IMPRESSION: 1. HEALING FRACTURE OF THE RIGHT 5TH RIB. 2. COPD WITH CHRONIC INTERSTITIAL CHANGES. FAINT DENSITY IN THE RIGHT COSTOPHRENIC ANGLE COULD BE DU E TO ATELECTASIS OR VERY EARLY INFILTRATE. TECHNICAL DOCUMENTATION: JOB ID: [id number] [employer]- All Rights Reserved Reading location - IP/workstation name: [email or web address]
--- NOTE | 2019-08-31 17:12 | ER Document Report ---
ED General - General Chief Complaint: Cough Stated Complaint: COUGH,CONGESTION,SHORT OF BREATH Time Seen by Provider: 08/31/19 13:44 Primary Care Provider: STELLA NESBITT MD [Primary Care Provider] - Follow up as needed Mode of Arrival: Wheelchair TRAVEL OUTSIDE OF THE [place] IN LAST 30 DAYS: No - HPI Notes: Patient is a 74-year-old female with a history of COPD and hypertension who is also on Eliquis who presents complaining of nasal congestion/discharge, productive cough. Patient states that she has had some cough and congestion since the summer, but over the past week things have gotten worse for her. She is on oxygen only at nighttime. Patient states that she started noticing red flecks and 1-2 streaks of blood in her sputum today. She is otherwise able to eat and drink without difficulty. She is urinating normally and having normal bowel movements. Patient states that her son had a heart attack and is currently in [place] so she was opening an antibiotic so she can go up there to see him. She has no other concerns or complaints. Denies any headache, fever, neck pain, sore throat, chest pain, palpitations, syncope, abdominal pain, nausea/vomiting/diarrhea, urinary retention, dysuria, hematuria, or rash. - Related Data Allergies/Adverse Reactions: adhesive tape [Adhesive Tape] Allergy (Severe, Verified 05/25/18 10:16) peels skin off ceftriaxone sodium [From Rocephin] Allergy (Severe, Verified 05/25/18 10:16) redness/itch lorazepam [From Ativan] Adverse Reaction (Severe, Verified 05/26/18 13:33) Hallucinations Home Medications: Valsartan. Elliquis. Clonazepam. Gabapentin. Flonase. Diliresp. Singulair. Prilosec Past Medical History - General Information source: Patient - Social History Smoking Status: Current Every Day Smoker Frequency of alcohol use: None Drug Abuse: None Family History: Reviewed & Not Pertinent Patient has suicidal ideation: No Patient has homicidal ideation: No - Past Medical History Cardiac Medical History: Reports: Hx Atrial Fibrillation - chronic, Hx Congestive Heart Failure - chronc diastolic type, Hx Hypertension Denies: Hx Coronary Artery Disease, Hx Heart Attack, Hx Hypercholesterolemia, Hx Peripheral Vascular Disease, Hx Pulmonary Embolism, Hx Heart Murmur Pulmonary Medical History: Reports: Hx Bronchitis, Hx COPD Denies: Hx Asthma, Hx Pneumonia, Hx Respiratory Failure, Hx Sleep Apnea, Hx Tuberculosis Neurological Medical History: Reports: Hx Seizures. Denies: Hx Cerebrovascular Accident, Hx Parkinson's Disease Endocrine Medical History: Denies: Hx Graves' Disease, Hx Hyperthyroidism, Hx Hypothyroidism Renal/ Medical History: Denies: Hx End Stage Renal Disease, Hx Kidney Stones, Hx Peritoneal Dialysis Malignancy Medical History: Denies: Hx Lung Cancer GI Medical History: Reports: Hx Gastroesophageal Reflux Disease, Hx Hepatitis, Hx Ulcer. Denies: Hx Crohn's Disease, Hx Hiatal Hernia, Hx Irritable Bowel, Hx Liver Failure, Hx Pancreatitis Musculoskeletal Medical History: Reports Hx Arthritis, Denies Hx Fibromyalgia, Denies Hx Multiple Sclerosis, Denies Hx Muscular Dystrophy, Denies Hx Systemic Lupus Erythematosus Psychiatric Medical History: Reports: Hx Anxiety Denies: Hx Dementia, Hx Depression, Hx Post Traumatic Stress Disorder, Hx Schizophrenia Comment Only: Hx Bipolar Disorder - anxiety Traumatic Medical History: Denies: Hx Fractures Infectious Medical History: Reports: Hx Hepatitis Past Surgical History: Reports: Hx Cholecystectomy. Denies: Hx Appendectomy, Hx Bowel Surgery, Hx Section, Hx Colostomy, Hx Coronary Artery Bypass Graft, Hx Gastric Bypass Surgery, Hx Herniorrhaphy, Hx Hysterectomy, Hx Mastec donald, Hx Open Heart Surgery, Hx Pacemaker, Hx Tonsillectomy, Hx Tubal Ligation - Immunizations Immunizations up to date: Yes Hx Diphtheria, Pertussis, Tetanus Vaccination: No Hx Pneumococcal Vaccination: 07/14/11 Review of Systems - Review of Systems -: Yes All other systems reviewed and negative Physical Exam - Vital signs Vitals: Temp Pulse Resp BP Pulse Ox 97.8 F 117 H 28 H 167/68 H 95 08/31/19 13:34 08/31/19 13:34 08/31/19 13:34 08/31/19 13:34 08/31/19 13:34 - Notes Notes: PHYSICAL EXAMINATION: GENERAL: Well-appearing, well-nourished and in no acute distress. HEAD: Atraumatic, normocephalic. EYES: Pupils equal round and reactive to light, extraocular movements intact, sclera anicteric, conjunctiva are normal. ENT: Nares patent and with clear/yellow discharge. oropharynx clear without exudates. No tonsilar hypertrophy or erythema. Moist mucous membranes. NECK: Normal range of motion, supple without lymphadenopathy LUNGS: scant bibasilar crackles. no retractions. HEART: Regular rate and rhythm without murmurs, rubs, gallops. ABDOMEN: Soft, nontender, nondistended abdomen. No guarding, no rebound. Normal bowel sounds present. No CVA tenderness bilaterally. Musculoskeletal: FROM to passive/active. Strength 5+/5. Shayan neg. No asymmetry to LE's. Extremities: No cyanosis, clubbing, or edema b/l. Peripheral pulses 2+. Capillary refill less than 3 seconds. NEUROLOGICAL: Normal speech, normal gait. PSYCH: Normal mood, normal affect. SKIN: Warm, Dry, normal turgor, no rashes or lesions noted. Course - Re-evaluation Re-evalutation: 08/31/19 19:08 Patient is an afebrile, well-hydrated, 74-year-old female who presents with pneumonia in the setting of COPD exacerbation. Vitals are acceptable without significant tachycardia, tachypnea, or hypoxia. PE is otherwise unremarkable. Patient is nontoxic-appearing and is tolerating p.o. without difficulty. See lab results. See imaging results. CTA of the chest was obtained due to the hemoptysis after review with Dr. Goel for further evaluation. She has known fractures of her thoracic spine and ribs. Dr. Riddle who is also familiar with this patient who would be the admitting, and states to put her on antibiotic and send her home. Patient is very adamant about leaving and not staying as she has to go to the hospital in [place] to see her son. Low suspicion for any ACS, PE, pneumothorax, pericarditis, dissection, respiratory compromise, severe dehydration, sepsis, meningitis, or other systemic emergent condition at this time. Patient is aware that her condition can change from initial presentation and she needs to monitor symptoms closely and seek medical attention for any acute changes. I will send her home with a prescription for doxycycline. Recommend conservative measures for symptoms. Recheck with your PCM in 2-3 day s. Return to the ED with any worsening/concerning symptoms otherwise as reviewed in discharge. Patient is in agreement. - Vital Signs Vital signs: Temp Pulse Resp BP Pulse Ox 97.8 F 99 28 H 167/68 H 97 08/31/19 13:34 08/31/19 13:52 08/31/19 13:34 08/31/19 13:34 08/31/19 15:20 - Laboratory Result Diagrams: 08/31/19 13:55 08/31/19 13:55 Laboratory results interpreted by me: 08/31/19 08/31/19 08/31/19 13:55 13:55 13:55 WBC 11.4 H Hgb 11.9 L Hct 35.9 L RDW 15.0 H Absolute Neuts (auto) 8.7 H PT 18.5 H Sodium 134.0 L Chloride 97 L Alkaline Phosphatase 140 H Discharge - Discharge Clinical Impression: COPD exacerbation Right lower lobe pneumonia Qualifiers: Pneumonia type: due to unspecified organism Qualified Code(s): J18.1 - Lobar pneumonia, unspecified organism Condition: Stable Disposition: HOME, SELF-CARE Additional Instructions: Maintain adequate fluid intake tylenol/ibuprofen as needed alternating every 3 hours for fever/body ache over the counter cold medication as needed for symptoms Humidified air may help Wash your hands regularly Wear a mask when coughing F/u: with your PCM in 2-3 days for a recheck Return to the ED with any fever, altered mental status/behavior, chest pain, palpitations, syncope, headache, neck pain/stiffness, shortness of breath, chest pains, wheezing, drooling, trouble swallowing/breathing, abdominal pain, n/v/d, rash, or worsening/concerning symptoms otherwise. Prescriptions: Doxycycline Hyclate 100 mg PO BID #20 capsule Forms: Elevated Blood Pressure Referrals: STELLA NESBITT MD [Primary Care Provider] - 09/02/19
[2019-08-31 17:23] LABS: INTERNATIONAL RATION (INR) 1.53; PROTHROMBIN TIME 18.5 SEC (11.4-15.4)
[2019-08-31 17:24] LABS: PARTIAL THROMBOPLASTIN TIME 35.8 SEC (23.5-35.8)
--- NOTE | 2019-08-31 19:01 | RADIOLOGY REPORT (SQ) ---
EXAM DESCRIPTION: CTA CHEST COMPLETED DATE/TIME: 08/31/2019 6:44 pm REASON FOR STUDY: cough, hemoptysis COMPARISON: 08/31/2019 and 06/26/2018 TECHNIQUE: CT scan of the chest performed using helical scanning technique with dynamic intravenous contrast injection. Images reviewed with lung, soft tissue and bone windows. Reconstructed coronal and sagittal MPR images reviewed. Additional 3 dimensional post-processing performed to develop Maximal Intensity Projection images ([place] P). All images stored on PACS. All CT scanners at this facility use dose modulation, iterative reconstruction, and/or weight based d osing when appropriate to reduce radiation dose to as low as reasonably achievable (ALARA). [facility]: Dose Right [facility]: CareDose [facility]: Dose Right [facility]: Teradose 4D [facility]: CombiMatrix CONTRAST TYPE AND DOSE: contrast/concentration: Isovue 350.00 mg/ml; Total Contrast Delivered: 49.0 ml; Total Saline Delivered: 52.0 ml Contrast bolus optimized for the pulmonary arteries. Not diagnostic for the aorta. RENAL FUNCTION: BUN 11; creatinine 0.89 RADIATION DOSE: CT Rad equipment meets quality standard of care and radiation dose reduction techniq ues were employed. CTDIvol: 6.6 - 14.3 mGy. DLP: 471 mGy-cm. . LIMITATIONS: None. FINDINGS: LUNGS AND PLEURA: Right lower lobe peripheral atelectasis versus consolidation. Backgroun d of centrilobular emphysematous changes. No pneumothorax. No pleural effusion. AORTA AND GREAT VESSELS: No aneurysm. Contrast bolus not optimized for the aorta. HEART: No pericardial effusion. Moderate to marked coronary artery calcifications. PULMONARY ARTERIES: No emboli visualized in the main pulmonary arteries or the segmental branches. HILAR AND MEDIASTINAL STRUCTURES: Scattered mediastinal lymph nodes appear unchanged in size or imagi ng characteristics. HARDWARE: None in the chest. UPPER ABDOMEN: Unchanged. THYROID AND OTHER SOFT TISSUES: No masses. No adenopathy. BONES: Multiple thoracic wedge compression deformities, some of which appear to have progressed in study interval. Multiple healed and chronic rib fractures. New left 5th rib fracture. 3D MIPS: Confirm above findings. OTHER: No other significant finding. IMPRESSION: No pulmonary embolus. Right lower lobe peripheral atelectasis versus small consolidatio n is a nonspecific finding. Multiple wedge compression deformities of the thoracic spine, some of wh ich have progressed in the study interval. Likewise, multiple healed and chronic rib fractures with a new left 5th rib fracture laterally. COMMENT: Quality ID # [id number]: Final reports with documentation of one or more dose reduction techniques (e.g., Automated exposure control, adjustment of the mA and/or kV according to patient size, use of iterative reconstruction technique) TECHNICAL DOCUMENTATION: JOB ID: [id number] [employer]- All Rights Reserved Reading location - IP/workstation name: [email or web address]
[2019-08-31] MEDS ORDERED: DOXYCYCLINE HYCLATE 100 MG TABLET PO ONE (19:12)
[2019-08-31 19:19] VITALS: BP 154/68
== END 2019-08-31 19:35 | disposition home or self-care (01) ==
LOC: ER 13:29
DX: J18.1 Lobar pneumonia, unspecified organism (principal); J44.1 Chronic obstructive pulmonary disease with (acute) exacerbation; R05 Cough; R09.81 Nasal congestion; R06.02 Shortness of breath; R09.89 Other specified symptoms and signs involving the circulatory and respiratory systems; Z79.01 Long term (current) use of anticoagulants; Z99.81 Dependence on supplemental oxygen; Z79.899 Other long term (current) drug therapy; F17.200 Nicotine dependence, unspecified, uncomplicated; I50.9 Heart failure, unspecified; I11.0 Hypertensive heart disease with heart failure
CPT/HCPCS: 99284; 36415; 85025; 85610; 85730; 80053; 71046; 71275; A9270

== ENCOUNTER → 2019-10-07 | Outpatient (CLI) | payer MEDICARE, OTHER ==
--- NOTE | 2019-10-07 14:50 | WOMENS IMAGING REPORT ---
EXAM DESCRIPTION: 3D SCREENING MAMMO BILAT COMPLETED DATE/TIME: 10/07/2019 12:02 pm REASON FOR STUDY: Z12.31 SCREENING MAMMO Z12.31 ENCNTR SCREEN MAMMOGRAM FOR MALIGNANT NEOPLASM OF B RE COMPARISON: 06/21/2016 EXAM PARAMETERS: Standard craniocaudal and mediolateral oblique views of each breast recorded using digital acquisition and breast tomosynthesis. Read with the assistance of CAD. .[facility] - R2 Taker Off [employer] Version 9.2 LIMITATIONS: None. FINDINGS: Findings present which are benign by mammographic criteria. No suspicious masses, calcific ations or architectural distortion. Pertinent benign findings: Bilateral benign breast parenchymal calcifications. Stable mildly dilated bilateral retroareolar ducts. Benign mammographic findings may include one or more of the following: Smooth masses, popcorn/rim/coa rse calcifications, asymmetries, post-procedure changes, and lesions with long-standing stability. IMPRESSION: BENIGN MAMMOGRAPHIC FINDINGS. BIRADS 2 BREAST DENSITY: b. There are scattered areas of fibroglandular density. BIRAD: ASSESSMENT: 2 BENIGN FINDING(S) RECOMMENDATION: ROUTINE SCREENING Please continue yearly bilateral screening mammography/tomosynthesis in September 2020 COMMENT: The patient has been notified of the results by letter per MQSA requirements. Additional no tification policies are in place for contacting patient with suspicious or incomplete findings. Quality ID #[id number]: [employer] recommends an annual screening mammogram for women aged 40 years or over. This facility utilizes a reminder system to ensure that all patients receive reminder letters, and/or direct phone calls for appointments. This includes reminders for routine scr eening mammograms, diagnostic mammograms, or other Breast Imaging Interventions when appropriate. Th is patient will be placed in the appropriate reminder system. TECHNICAL DOCUMENTATION: FINDING NUMBER: (1) ASSESSMENT: (1) JOB ID: [id number] [employer]- All Rights Reserved Reading location - IP/workstation name: [email or web address]
== END ==
LOC: WI 11:35
PROVIDERS: ATTEND Internal Medicine Geriatric Medicine
DX: Z12.31 Encounter for screening mammogram for malignant neoplasm of breast (principal)
CPT/HCPCS: 77063; 77067